=== PATIENT | male | born 1990 | race Caucasian/White ===

== ENCOUNTER 2023-02-26 02:29 | Outpatient (CLI) | payer OTHER, SELFPAY | END 2023-02-26 02:30 | disposition home or self-care (01) | LOC: AMB 04-01 15:23 | PROVIDERS: Visit Provider Family Medicine | DX: R44.0 Auditory hallucinations (principal); F10.129 Alcohol abuse with intoxication, unspecified | CPT/HCPCS: A0425; A0427 ==

== ENCOUNTER 2023-06-15 21:31 | Emergency (ER) | payer OTHER, SELFPAY ==
[2023-06-15] VITALS (11 sets, daily range): BP systolic 118–131; BP diastolic 79–110; PULSE 93–192; RESP 20; TEMP 36.8–37.1; O2SAT 93–99
--- NOTE | 2023-06-15 21:49 | CRLHL7_ITS ---
For Patients: As a result of the Century Cures Act, medical imaging exams and procedure reports are released immediately into your electronic medical record. You may view this report before your referring provider. If you have questions, please contact your health care provider. INDICATION: Chest pain. TECHNIQUE: Chest 2 views. COMPARISON: None. FINDINGS: Cardiovascular and mediastinum: Heart size and vasculature are normal in caliber and appearance. Lungs and pleural spaces: Lungs are clear. No sign of infiltrate or mass. No sign of pleural effusion. No pneumothorax. Bones and soft tissues: No significant findings. IMPRESSION: No acute or significant findings. Dictated by Niels Saenz MD @ 06/15/2023 11:43:32 PM (Electronically Signed)
--- OUTSIDE RECORDS SUMMARY | 2023-06-15 21:56 | XMS_ITS | Encounter Summary ---
Author Name Unknown Organization [facility] Address [address] [place] [id number] Care Team Providers Care Director Of Learning Name Role Phone Provider, No Primary Primary Care Provider Unava ilable Encounter Details Date Type Department Care Team Description 03/23/2023 Travel Social History Tobacco Use Types Packs/Day Years Used Date Smoking Tobacco: Never Assessed Sex and Gender Information Value Date Recorded Sex Assigned at Not on file Gender Identity Not on file Sexual Orientation Not on file documented as of this encounter Plan of Treatment Not on file documented as of this encounter Visit Diagnoses Not on filedocumented in this encounter Care Teams Director Of Learning Relationship Specialty Start Date End Date Provider, [place] [address] PCP - General 03/23/23 documented as of this encounter Additional Source Comments PLEASE NOTE: Replies to this message will not be received.[facility] and [facility]
--- OUTSIDE RECORDS SUMMARY | 2023-06-15 21:56 | XMS_ITS | Clinical Summary ---
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 0 Active dextroamphetamine-amph etamine (ADDERALL XR) 20 mg oral Capsule, Sust. Release 24HR Take 1 Capsule (20 mg) by mouth in the morning and 1 Capsule (20 mg) in the evening. 0 Active thiamine (VIT B1) 100 mg oral Tablet Take 1 Tablet (100 mg) by mouth in the morning. 0 Active traZODone (DESYREL) 100 mg oral Tablet Take 1 Tablet (100 mg) by mouth if needed at bedtime for sleep. 0 Active multivitamin with minerals oral Tablet Take 1 Tablet by mouth in the morning. 0 Active Active Problems Problem Noted Date Diagnosed Date Alcohol withdrawal syndrome without complication 03/24/2023 Encounters Date Type Department Care Team Description 03/23/2023 9:32 PM CDT - 03/26/2023 1:25 PM CDT Hospital Encounter [facility] [address] [place] [id number] Dwayne Ramirez MD Chihos, MD Iona Richards Shaun, MD Hong, Shauna Milner MD Dx: Suicidal ideation (Primary Dx) Discharge Disposition: Discharge Home 03/23/2023 Travel from Last 3 Months Social History Tobacco Use Types Packs/Day Years Used Date Smoking Tobacco: Every Day Cigarettes 0.5 10 Started: 11/05/2009 Passive Smoke Exposure: Past Smokeless Tobacco: Never Tobacco Cessation:Ready to Q uit: Yes; Counseling Given: Not Answered Alcohol Use Standard Drinks/Week Comments Not Currently 0 (1 standard drink = 0.6 oz pur e alcohol) 1 L vodka per day Sex and Gender Information Value Date Recorded Sex Assigned at Not on file Gender Identity Not on file Sexual Orientation Not on file Last Filed Vital Signs Vital Sign Reading Time Taken Comments Blood Pressure 123/110 03/26/2023 10:50 AM CDT Pulse 80 03/26/2023 10:50 AM CDT Temperature 36.4 ??C (97.6 ??F) 03/26/2023 1 0:50 AM CDT Respiratory Rate 20 03/26/2023 10:5 0 AM CDT Oxygen Saturation 97% 03/26/2023 10: 50 AM CDT Inhaled Oxygen Concentration - - Weight 93.4 kg (205 lb 14.4 oz) 03/26/2023 6:07 AM CDT Height 182.9 cm (6') 03/24/2023 1:04 AM CDT Body Mass Index 27.93 03/24/2023 1:04 AM CDT Plan of Treatment Health Maintenance Due Date Last Done Comments PHQ-9 Depression Screening 2000 HIV Screen 2003 COVID-19 Vaccine ( season) 2023 09/26/2020, 08/28/2020 Influenza Vaccine (#1) 2023 , 02/02/2020, 02/28/2019, Additional history exists Lipids Standard 2023 DTaP/Tdap/Td Vaccines (5 - Td or Tdap) 02/23/2027 02/23/2017, 06/10/2016, 10/07/2015, Additional history exists Varicella Zoster Sequential (1 of 2) 2038 Meningococcal Vaccines Aged Out 04/04/2008 No lo nger eligible based on patient's age to complete this topic Hepatitis A Vaccines Aged Out 02/13/2009, 05/01/2008, 04/30/2008, Additional history exists No longer eligible based on patient's age to complete this topic Hepatitis B Vaccines Completed 02/13/2009, 05/01/2008, 04/30/2008, Additional history exists Pneumococcal Vaccine (0-64 Years) Aged Out 09/03/2016, 04/04/2008 No longer eligibl e based on patient's age to complete this topic Hepatitis C Testing Completed 03/24/2023 HIB Vaccines Aged Out No longer eligi ble based on patient's age to complete this topic HPV Vaccines Aged Out No longer eligi ble based on patient's age to complete this topic Procedures Procedure Name Priority Date/Time Associated Diagnosis Comments LAVENDER TUBE Routine 03/26/2023 6:31 AM CDT EXTRA TUBES Routine 03/26/2023 6:31 AM CDT BASIC METABOLIC PANEL Routine 03/26/2023 6:31 AM CDT MAGNESIUM Routine 03/26/2023 6:31 AM CDT COMPREHENSIVE METABOLIC PANEL Routine 03/25/2023 6:12 AM CDT LEUKOCYTE COUNT/HEMOGLOBIN/PLATE LET COUNT Routine 03/25/2023 6:12 AM CDT MAGNESIUM Routine 03/25/2023 6:12 AM CDT CARDIAC RHYTHM STRIP 03/24/2023 8:00 PM CDT CARDIAC RHYTHM STRIP 03/24/2023 7:59 PM CDT PLATELET COUNT Add On 03/24/2023 1:05 PM CDT HEPATITIS A AB, IGM Routine 03/24/2023 1 :05 PM CDT HEPATITIS C AB Routine 03/24/2023 1:05 PM CDT HEPATITIS B CORE AB, IGM Routine 03/24/2023 1:05 PM CDT HEPATITIS B SURFACE AG Routine 1:05 PM CDT BASIC METABOLIC PANEL Routine 03/24/2023 8:04 AM CDT LIVER FUNCTION PANEL Routine 03/24/2023 8:04 AM CDT MAGNESIUM Routine 03/24/2023 8:04 AM CDT HEMOGLOBIN Routine 03/24/2023 8:03 AM CDT US ABD RUQ Routine 03/24/2023 7:43 AM CDT URINE CULTURE STAT 03/24/2023 12:18 AM CDT URINALYSIS, MICROSCOPIC ONLY STAT 03/24/2023 12:18 AM CDT DRUGS OF ABUSE SCREEN, URINE STAT 03/24/2023 12:18 AM CDT URINALYSIS WITH REFLEX TO MICROSCOPIC STAT 03/24/2023 12:18 AM CDT GOLD/SST TUBE STAT 03/23/2023 10:17 PM CDT LAVENDER TUBE STAT 03/23/2023 10:17 PM CDT LIGHT GREEN TUBE STAT 03/23/2023 10:1 7 PM CDT LIGHT BLUE TUBE STAT 03/23/2023 10:17 PM CDT TROPONIN I Add On 03/23/2023 10:17 PM CDT LIPASE Add On 03/23/2023 10:17 PM CDT COMPLETE BLOOD COUNT AND DIFFERENTIAL STAT 03/23/2023 10:17 PM CDT PROTHROMBIN TIME AND INR STAT 03/23/2023 10:17 PM CDT MAGNESIUM STAT 03/23/2023 10:17 PM CDT LIVER FUNCTION PANEL STAT 03/23/2023 10:17 PM CDT ETHANOL STAT 03/23/2023 10:17 PM CDT BASIC METABOLIC PANEL STAT 03/23/2023 10:17 PM CDT COMPLETE BLOOD COUNT AND DIFFERENTIAL STAT 03/23/2023 10:17 PM CDT RAINBOW DRAW STAT 03/23/2023 10:17 PM CDT ECG STAT 03/23/2023 8:42 PM CDT from Last 3 Months Results * LAVENDER TUBE (03/26/2023 6:31 AM CDT) Only the most recent of2 resultswithin the time period is included. Blood VENOUS BLOOD / Unknown 03/26/2023 6:31 AM CDT 03/26/2023 7:23 AM CDT Shauna Deshpande MD LAB CHEMISTRY ORDERA BLES Performing Organization Address [facility] Co de Phone Number [facility] [address] [place] [address], [place] [phone] * MAGNESIUM (03/26/2023 6:31 AM CDT) Only the most recent of4 resultswithin the time period is included. Magnesium 2.3 1.8 - 2.6 mg/dL 03/26/2023 7:42 AM CDT [facility] Blood VENOUS BLOOD / Unknown Venipuncture / Unknown 03/26/2023 6:31 AM CDT 03/26/2023 7:11 AM CDT Robles Mcmillan MD LAB CHEMISTRY OR DERABLES Performing Organization Address [facility] Co de Phone Number [facility] [address] [place] [address], [place] [phone] * (ABNORMAL) BASIC METABOLIC PANEL (03/26/2023 6:31 AM CDT) Only the most recent of3 resultswithin the time period is included. Sodium 134(L) 136 - 146 mmol/L 03/26/2023 7:58 AM CDT [facility] Potassium 3.5 3.5 - 5.1 mmol/L 03/26/2023 7:58 AM T [facility] Chloride 100 98 - 107 mmol/L 03/26/2023 7:58 AM [facility] CO2 25 22 - 29 mmol/L 03/26/2023 7:58 AM T [facility] Anion Gap 12.5 10.0 - 20.0 mmol/L 03/26/2023 7:58 AM T [facility] Creatinine 0.93 0.72 - 1.25 mg/dL 03/26/2023 7:58 AM T [facility] Blood Urea Nitrogen 8.5(L) 10.0 - 20.0 mg/dL 03/26/2023 7:58 AM [facility] BUN/Creatinine Ratio 9.14(L) 11.70 - 22.90 ratio 03/26/2023 7:58 AM [facility] Calcium, Total 8.9 8.6 - 10.5 mg/dL 03/26/2023 7:58 AM T [facility] Glucose 113(H) 70 - 100 mg/dL 03/26/2023 7:58 AM [facility] eGFR >60 >=60 mL/min/1. 73m(2) 03/26/2023 7:58 AM T [facility] Comment:Calculation based on the Chronic Kidney Disease Epidemiology Collaboration (CKD-EPI) equation refit without adjustment for race. eCrCl (Rx) - Adults 147.9 mL/min 03/26/2023 7:58 AM T [facility] Blood VENOUS BLOOD / Unknown Venipuncture / Unknown 03/26/2023 6:31 AM CDT 03/26/2023 7:11 AM CDT Baldemar Monson MD LAB CHEMISTRY ORDERA BLES [facility] [address] [place] [address], [place] [phone] * (ABNORMAL) COMPREHENSIVE METABOLIC PANEL (03/25/2023 6:12 AM CDT) Sodium 134(L) 136 - 146 mmol/L 03/25/2023 6:49 AM CDT [facility] Potassium 3.8 3.5 - 5.1 mmol/L 03/25/2023 6:49 AM CDT [facility] Chloride 102 98 - 107 mmol/L 03/25/2023 6:49 AM CDT [facility] CO2 21(L) 22 - 29 mmol/L 03/25/2023 6:49 AM CDT [facility] Anion Gap 14.8 10.0 - 20.0 mmol/L 03/25/2023 6:49 AM CDT [facility] Creatinine 0.84 0.72 - 1.25 mg/dL 03/25/2023 6:49 AM CDT [facility] Blood Urea Nitrogen 8.1(L) 10.0 - 20.0 mg/dL 03/25/2023 6:49 AM CDT [facility] BUN/Creatinine Ratio 9.64(L) 11.70 - 22.90 ratio 03/25/2023 6:49 AM CDT [facility] Calcium, Total 8.3(L) 8.6 - 10.5 mg/dL 03/25/2023 6:49 AM CDT [facility] Glucose 113(H) 70 - 100 mg/dL 03/25/2023 6:49 AM CDT [facility] eGFR >60 >=60 mL/min/1. 73m(2) 03/25/2023 6:49 AM CDT [facility] Comment:Calculation based on the Chronic Kidney Disease Epidemiology Collaboration (CKD-EPI) equation refit without adjustment for race. Total Protein 6.3 6.0 - 8.0 g/dL 03/25/2023 6:49 AM CDT [facility] Albumin 3.5 3.5 - 5.0 g/dL 03/25/2023 6:49 AM CDT [facility] Globulin 2.8 2.0 - 3.5 g/dL 03/25/2023 6:49 AM T [facility] Albumin/Globulin Ratio 1.3 1.0 - 2.0 03/25/2023 6:49 AM CDT [facility] Aspartate Aminotransferase (AST) 182(H) 5 - 41 U/L 03/25/2023 6:49 AM CDT [facility] Alanine Aminotransferase (ALT) 238(H) 8 - 45 U/L 03/25/2023 6:49 AM T [facility] Alkaline Phosphatase 62 50 - 136 U/L 03/25/2023 6:49 AM T [facility] Bilirubin, Total 1.4(H) 0.2 - 1.2 mg/dL 03/25/2023 6:49 AM CDT [facility] eCrCl (Rx) - Adults 165.4 mL/min 03/25 6:49 AM T [facility] Blood VENOUS BLOOD / Unknown Venipuncture / Unknown 03/25/2023 6:12 AM CDT 03/25/2023 6:19 AM CDT Baldemar Monson MD LAB CHEMISTRY ORDERA [facility] Organization Address City/State/ZIP Co de Phone Number [facility] [address] [place] [address], [place] [phone] * LEUKOCYTE COUNT/HEMOGLOBIN/PLATELET COUNT (03/25/2023 6:12 AM CDT) WBC Count, Corrected 6.8 3.9 - 11.9 10(3)/uL 03/25/2023 8:35 AM CDT [facility] Hemoglobin 15.2 13.1 - 17.1 g/dL 03/25/2023 8:35 AM CDT [facility] Platelets 191 179 - 450 10(3)/uL 03/25/2023 8:35 AM CDT [facility] Blood VENOUS BLOOD / Unknown Venipuncture / Unknown 03/25/2023 6:12 AM CDT 03/25/2023 6:19 AM CDT Baldemar Monson MD LAB HEMATOLOGY ORDER TASHA Performing Organization Address City/[facility]/ZIP Co de Phone Number [facility] [address] [place] [address], [place] [phone] * CARDIAC RHYTHM STRIP (03/24/2023 8:00 PM CDT) Only the most recent of2 resultswithin the time period is included. 03/24/2023 8:00 PM CDT Narrative TERESA - 03/24/2023 8:00 PM CDT [place] 0.17 QRS 0.10 QT 0.38 Baldemar Monson MD ECG Performing Organization Address [facility] Co de Phone Number TERESA * HEPATITIS C AB (03/24/2023 1:05 PM CDT) HCV Ab Nonreactive Nonreactive 03/24/2023 2:09 PM CDT [facility] Comment:Interpretation: Anti bodies to HCV were not detected; does not exclude the possibility of exposure to HCV. Blood VENOUS BLOOD / Unknown Venipuncture / Unknown 03/24/2023 1:05 PM CDT 03/24/2023 1:14 PM CDT Baldemar Monson MD LAB SEROLOGY ORDERAB LES Performing Organization Address City/[facility] Co de Phone Number [facility] [address] [place] [address], [place] [phone] * HEPATITIS A AB, IGM (03/24/2023 1:05 PM CDT) Hepatitis A Ab, IgM Negative Negative 03/25/2023 9:32 AM CDT [facility] Comment: Result does not exclude the possibility of exposure to hepatitis A virus. ??Antibody level during early infection stage may be below the limit of detection of the assay. Test Performed by: [address] [address] Spd Manager: Mason Ho M.D. Ph.D.; CLIA# [id number] Blood VENOUS BLOOD / Unknown Venipuncture / Unknown 03/24/2023 1:05 PM CDT 03/24/2023 1:14 PM CDT Baldemar Monson MD LAB SEROLOGY ORDERAB LES [address] [address], [place] [phone] * HEPATITIS B CORE AB, IGM (03/24/2023 1:05 PM CDT) Hepatitis B Core Ab, IgM Nonreactive Nonreactive, Equivocal 03/24/2023 2:09 PM CDT [facility] Blood VENOUS BLOOD / Unknown Venipuncture / Unknown 03/24/2023 1:05 PM CDT 03/24/2023 1:14 PM CDT Baldemar Monson MD LAB SEROLOGY ORDERAB LES Performing Organization Address City/[facility]/ZIP Co de Phone Number [facility] [address] [place] [address], [place] [phone] * HEPATITIS B SURFACE AG (03/24/2023 1:05 PM CDT) Hepatitis B Surface Ag Nonreactive Nonreactive 03/24/2023 2:09 PM CDT [facility] Blood VENOUS BLOOD / Unknown Venipuncture / Unknown 03/24/2023 1:05 PM CDT 03/24/2023 1:14 PM CDT Baldemar Monson MD LAB SEROLOGY ORDERAB LES [facility] [address] [place] [address], [place] [phone] * (ABNORMAL) PLATELET COUNT (03/24/2023 1:05 PM CDT) [facility] Platelets 122(L) 179 - 450 10(3)/uL 03/24/2023 1:24 PM CDT [facility] Blood VENOUS BLOOD / Unknown Venipuncture / Unknown 03/24/2023 1:05 PM CDT 03/24/2023 1:15 PM CDT Baldemar Monson MD LAB HEMATOLOGY ORDER TASHA [facility] [address] [place] [address], [place] [phone] * (ABNORMAL) LIVER FUNCTION PANEL (03/24/2023 8:04 AM CDT) Only the most recent of2 resultswithin the time period is included. [facility] Albumin 3.5 3.5 - 5.0 g/dL 03/24/2023 8:31 AM CDT [facility] Total Protein 6.1 6.0 - 8.0 g/dL 03/24/2023 8:31 AM CDT [facility] Globulin 2.6 2.0 - 3.5 g/dL 03/24/2023 8:31 AM T [facility] Albumin/Globulin Ratio 1.3 1.0 - 2.0 03/24/2023 8:31 AM CDT [facility] Aspartate Aminotransferase (AST) 324(H) 5 - 41 U/L 03/24/2023 8:31 AM T [facility] Alanine Aminotransferase (ALT) 333(H) 8 - 45 U/L 03/24/2023 8:31 AM T [facility] Alkaline Phosphatase 65 50 - 136 U/L 03/24/2023 8:31 AM T [facility] Bilirubin, Total 1.5(H) 0.2 - 1.2 mg/dL 03/24/2023 8:31 AM CDT [facility] Bilirubin, Indirect 1.2(H) 0.0 - 0.7 mg/dL 03/24/2023 8:31 AM CDT [facility] Bilirubin, Direct 0.3 0.0 - 0.5 mg/dL 03/24/2023 8:31 AM CDT [facility] Blood VENOUS BLOOD / Unknown Venipuncture / Unknown 03/24/2023 8:04 AM CDT 03/24/2023 8:07 AM CDT Robles Mcmillan MD LAB CHEMISTRY OR DERABLES Performing Organization Address City/[facility]/ZIP Co de Phone Number [facility] [address] [place] [address], [place] [phone] * HEMOGLOBIN (03/24/2023 8:03 AM CDT) Hemoglobin 15.7 13.1 - 17.1 g/dL 03/24/2023 8:16 AM CDT [facility] Blood VENOUS BLOOD / Unknown Venipuncture / Unknown 03/24/2023 8:03 AM CDT 03/24/2023 8:07 AM CDT Robles Mcmillan MD LAB HEMATOLOGY O RDERABLES Performing Organization Address City/[facility]/ZIP Co de Phone Number [facility] [address] [place] [address], [place] [phone] * US ABD RUQ (03/24/2023 7:43 AM CDT) Anatomical Region Laterality Modality Abdomen Ultrasound 03/24/2023 7:56 AM CDT Narrative 03/24/2023 7:58 AM CDT EXAM: US ABD RUQ INDICATION: Elevated LFTs. COMPARISON: None available. FINDINGS: The gallbladder is mildly distended with wall measuring at the upper limits of normal; however, there is no pericholecystic fluid and per the fisher clam support sonographic Sanders sign was negative. ??The pancreas is largely obscured by overlying bowel gas. ??The liver parenchyma demonstrates diffuse increased echogenicity as compared to adjacent renal cortex. ??There appears to be mild prominence of the renal pelvis. ??No shadowing calculus. ??The visible common bile ducts within normal limits measuring approximately 4 mm. IMPRESSION: 1. Mild gallbladder distension with the wall measuring at the upper limits of normal. ??No additional findings to suggest acute cholecystitis. ??If there is high clinical suspicion a HIDA scan could be obtained. 2. Hepatic steatosis. ??No focal lesion is seen within the included images. 3. Mild prominence of the right renal pelvis. ??No shadowing calculus. Procedure Note Payam Latham MD - 03/24/2023 EXAM: US ABD RUQ INDICATION: Elevated LFTs. COMPARISON: None available. FINDINGS: The gallbladder is mildly distended with wall measuring at the upperlimits of normal; however, there is no pericholecystic fluid and per thesonographer support sonographic Sanders sign was negative. The pancreas is largelyobscured by overlying bowel gas. The liver parenchyma demonstrates diffuseincreased echogenicity as compared to adjacent renal cortex. There appears to bemild prominence of the renal pelvis. No shadowing calculus. The visiblecommon bile ducts within normal limits measuring approximately 4 mm. IMPRESSION: 1. Mild gallbladder distension with the wall measuring at the upper limitsof normal. No additional findings to suggest acute cholecystitis. If thereis high clinical suspicion a HIDA scan could be obtained. 2. Hepatic steatosis. No focal lesion is seen within the includedimages. 3. Mild prominence of the right renal pelvis. No shadowing calculus. Robles Mcmillan MD RAD ULTRASOUND * (ABNORMAL) DRUGS OF ABUSE SCREEN, URINE (03/24/2023 12:18 AM CDT) Amphetamines, Qualitative, Urine Negative Negative 03/24/2023 12:35 AM CDT [facility] Barbiturates, Qualitative, Urine Negative Negative 03/24/2023 12:35 AM CDT [facility] Benzodiazepines, Urine Negative Negative 03/24/2023 12:35 AM T [facility] Buprenorphine, Urine Negative Negative 03/24/2023 12:35 AM T [facility] Cocaine, Urine Negative Negative 03/24/2023 12:35 AM T [facility] Methadone, Qualitative, Urine Negative Negative 03/24/2023 12:35 AM T [facility] Methamphetamine, Qualitative, Urine Negative Negative 03/24/2023 12:35 AM T [facility] Opiates, Urine Negative Negative 03/24/2023 12:35 AM T [facility] Oxycodone, Urine Qualitative, Urine Negative Negative 03/24/2023 12:35 AM T [facility] Phencyclidine, Urine Negative Negative 03/24/2023 12:35 AM [facility] Propoxyphene, Urine Qualitative, Urine Negative Negative 03/24/2023 12:35 AM T [facility] THC Cannabinoids, Urine Positive(A) Negative 03/24/2023 12:35 AM [facility] Comment:Presumptive Positive - This specimen was tested with a urine drug screen device and has a presumptive positive finding. Screening tests can yield false positive results due to their sensitivity and cross-reactivity with other drug classes. Please order follow-up confirmatory testing if needed. Tricyclic Antidepressants, Qualitative, Urine Negative Negative 03/24/2023 12:35 AM [facility] Urine SPOT URINE SPECIMEN / Unknown Non-blood Collection / Unknown 03/24/2023 12:18 AM CDT 03/24/2023 12:21 AM T [facility] - 03/24/2023 12:35 AM CDT Screening Thresholds for Drugs: ??10 ng/mL ?? Buprenorphine ??25 ng/mL ?? Phencyclidine (PCP) ??50 ng/mL ?? Cannabinoids (THC) 100 ng/mL ?? Opiates 100 ng/mL ?? Oxycodone 150 ng/mL ?? Benzodiazepines 150 ng/mL ?? Cocaine 200 ng/mL ?? Barbiturates 300 ng/mL ?? Propoxyphene 300 ng/mL ?? Tricyclic Antidepressants 500 ng/mL ?? Amphetamine 500 ng/mL ?? Methamphetamine 200 ng/mL ?? Methadone Note: ??This test was performed to aid in medical decision making. ??It is not approved for legal or forensic uses. Dwayne Ramirez MD LAB URINE ORDERABLES Performing Organization Address City/[facility]/ZIP Co de Phone Number [facility] [address] [place] [address], [place] [phone] * (ABNORMAL) URINALYSIS, MICROSCOPIC ONLY (03/24/2023 12:18 AM CDT) RBC, Urine 3-5(A) None Seen, 1-2 /HPF 03/24/2023 12:33 AM CDT [facility] WBC, Urine None Seen None Seen, 1-5 /HPF 03/24/2023 12:33 AM CDT [facility] Bacteria, Urine None Seen None Seen, Few /HPF 03/24/2023 12:33 AM CDT [facility] Squamous Epithelial Cells, Urine None Seen None Seen, 1-5 /HPF 03/24/2023 12:33 AM CDT [facility] Mucus, Urine Occasional (A) None Seen /HPF 03/24/2023 12:33 AM CDT [facility] Urine URINE SPECIMEN OBTAINED BY CLEAN CATCH PROCEDURE / Unknown Non-blood Collection / Unknown 03/24/2023 12:18 AM CDT 03/24/2023 12:21 AM CDT Dwayne Ramirez MD LAB URINE ORDERABLES [facility] [address] [place] [address], [place] [phone] * (ABNORMAL) URINALYSIS WITH REFLEX TO MICROSCOPIC (03/24/2023 12:18 AM CDT) Color, Urine Light Yellow Yellow 03/24/2023 12:28 AM CDT [facility] [facility] Clarity, Urine Clear Clear 03/24/2023 12:28 AM CDT [facility] Specific [place], Urine 1.017 1.005 - 1.035 03/24/2023 12:28 AM CDT [facility] Glucose, Urine Negative Negative 03/24/2023 12:28 AM CDT [facility] Bilirubin, Urine Negative Negative 03/24/2023 12:28 AM CDT [facility] Ketone, Urine Trace(A) Negative 03/24/2023 12:28 AM CDT [facility] Blood, Urine 1+(A) Negative 03/24/2023 12:28 AM CDT [facility] pH, Urine 6.0 5.0 - 8.5 pH 03/24/2023 12:28 AM CDT [facility] Protein, Urine Trace(A) Negative 03/24/2023 12:28 AM CDT [facility] Urobilinogen, Urine <2.0 <2.0 EU/dL 03/24/2023 12:28 AM CDT [facility] Nitrite, Urine Negative Negative 03/24/2023 12:28 AM CDT [facility] Leukocyte Esterase, Urine Negative Negative 03/24/2023 12:28 AM CDT [facility] Urine URINE SPECIMEN OBTAINED BY CLEAN CATCH PROCEDURE / Unknown Non-blood Collection / Unknown 03/24/2023 12:18 AM CDT 03/24/2023 12:21 AM CDT Dwayne Ramirez MD LAB URINE ORDERABLES [facility] [address] [place] [address], [place] [phone] * URINE CULTURE (03/24/2023 12:18 AM CDT) Culture No growth 03/25/2023 6:33 AM CDT [facility] Urine URINE SPECIMEN OBTAINED BY CLEAN CATCH PROCEDURE / Unknown Non-blood Collection / Unknown 03/24/2023 12:18 AM CDT 03/24/2023 12:21 AM CDT Dwayne Ramirez MD LAB MICROBIOLOGY ORD ERABLES [facility] [address] [place] [address], [place] [phone] * (ABNORMAL) COMPLETE BLOOD COUNT AND DIFFERENTIAL (03/23/2023 10:17 PM CDT) WBC Count, Corrected 7.8 3.9 - 11.9 10(3)/uL 03/23/2023 10:32 PM CDT [facility] RBC Count 5.86(H) 4.08 - 5.79 10(6)/uL 03/23/2023 10:32 PM CDT [facility] Hemoglobin 18.2(H) 13.1 - 17.1 g/dL 03/23/2023 10:32 PM CDT [facility] Hematocrit 51.5(H) 38.7 - 51.4 % 03/23/2023 10:32 PM CDT [facility] MCV 87.9 82.9 - 100.6 fL 03/23/2023 10:32 PM CDT [facility] MCH 31.2 27.6 - 33.2 pg 03/23/2023 10:32 PM CDT [facility] MCHC 35.4 32.0 - 36.0 g/dL 03/23/2023 10:32 PM CDT [facility] RDW 13.6 10.0 - 16.2 % 03/23/2023 10:32 PM CDT [facility] Platelets 168(L) 179 - 450 10(3)/uL 03/23/2023 10:32 PM CDT [facility] MPV 7.8 7.4 - 10.4 fL 03/23/2023 10:32 PM CDT [facility] % Neutrophils 54.0 43.0 - 80.0 % 03/23/2023 10:32 PM CDT [facility] % Lymphocytes 40.7 16.0 - 49.0 % 03/23/2023 10:32 PM CDT [facility] % Monocytes 4.4 0.0 - 10.0 % 03/23/2023 10:32 PM CDT [facility] % Eosinophils 0.3 0.0 - 7.0 % 03/23/2023 10:32 PM CDT [facility] % Basophils 0.6 0.0 - 2.0 % 03/23/2023 10:32 PM CDT [facility] Abs Neutrophils 4.2 1.6 - 8.1 10(3)/uL 03/23/2023 10:32 PM CDT [facility] Abs Lymphocytes 3.2 0.9 - 3.5 10(3)/uL 03/23/2023 10:32 PM CDT [facility] Abs Monocytes 0.3 0.0 - 1.1 10(3)/uL 03/23/2023 10:32 PM CDT [facility] Abs Eosinophils 0.0 0.0 - 0.8 10(3)/uL 03/23/2023 10:32 PM CDT [facility] Abs Basophils 0.0 0.0 - 0.2 10(3)/uL 03/23/2023 10:32 PM CDT [facility] Blood VENOUS BLOOD / Unknown Venipuncture / Unknown 03/23/2023 10:17 PM CDT 03/23/2023 10:22 PM CDT Dwayne Ramirez MD LAB HEMATOLOGY ORDER TASHA [facility] [address] [place] [address], [place] [phone] * GOLD/SST TUBE (03/23/2023 10:17 PM CDT) Blood VENOUS BLOOD / Unknown Venipuncture / Unknown 03/23/2023 10:17 PM CDT 03/23/2023 10:22 PM CDT Juan Ramon Gan DO LAB CHEMISTR Y ORDERABLES Performing Organization Address [facility] Co de Phone Number [facility] [address] [place] [address], [place] [phone] * LIGHT GREEN TUBE (03/23/2023 10:17 PM CDT) Blood VENOUS BLOOD / Unknown Venipuncture / Unknown 03/23/2023 10:17 PM CDT 03/23/2023 10:22 PM CDT Juan Ramon Gan DO LAB CHEMISTR Y ORDERABLES Performing Organization Address City/[facility] Co de Phone Number [facility] [address] [place] [address], [place] [phone] * LIGHT BLUE TUBE (03/23/2023 10:17 PM CDT) Blood VENOUS BLOOD / Unknown Venipuncture / Unknown 03/23/2023 10:17 PM CDT 03/23/2023 10:22 PM CDT Juan Ramon Gan DO LAB CHEMISTR Y ORDERABLES Performing Organization Address City/[facility] Co de Phone Number [facility] [address] [place] [address], [place] [phone] * (ABNORMAL) ETHANOL (03/23/2023 10:17 PM CDT) Ethanol 388(H) <=10 mg/dL 03/23/2023 10:45 PM CDT [facility] Comment:This test was perfor med to aid in medical decision making. It is not approved for legal or forensic uses. Ethanol 0.39 % 03/23/2023 10:45 PM CDT [facility] Blood VENOUS BLOOD / Unknown Venipuncture / Unknown 03/23/2023 10:17 PM CDT 03/23/2023 10:22 PM CDT Narrative [facility] - 03/23/2023 10:45 PM CDT Increased levels of Lactate and LDH may cause elevated Ethyl Alcohol results. Dwayne Ramirez MD LAB CHEMISTRY ORDERA BLES Performing Organization Address City/[facility]/ZIP Co de Phone Number [facility] [address] [place] [address], [place] [phone] * LIPASE (03/23/2023 10:17 PM CDT) Lipase 69 8 - 78 U/L 03/24/2023 1:50 AM CDT [facility] Blood VENOUS BLOOD / Unknown Venipuncture / Unknown 03/23/2023 10:17 PM CDT 03/23/2023 10:22 PM CDT Robles Mcmillan MD LAB CHEMISTRY OR DERABLES Performing Organization Address City/[facility]/ZIP Co de Phone Number [facility] [address] [place] [address], [place] [phone] * PROTHROMBIN TIME AND INR (03/23/2023 10:17 PM CDT) Prothrombin Time 12.0 9.4 - 12.5 sec 03/23/2023 10:30 PM CDT [facility] INR 1.0 0.9 - 1.1 INR 03/23/2023 10:30 PM CDT [facility] Comment: Common Recommended Therapeutic Ranges: INR Standard: ??2.0-3.0 INR High Intensity: ??2.5-3.5 Blood VENOUS BLOOD / Unknown Venipuncture / Unknown 03/23/2023 10:17 PM CDT 03/23/2023 10:22 PM CDT Dwayne Ramirez MD LAB HEMATOLOGY ORDER TASHA Performing Organization Address [facility] de Phone Number [facility] [address] [place] [address], * TROPONIN I (03/23/2023 10:17 PM CDT) Troponin I 0.01 <=0.04 ng/mL [employer] ANA[employer]ST [id number] 03/24/2023 5:30 AM CDT [facility] Comment: 99% Reference Value: <0.04 ng/mL Assay Diagnostic Reference Range: <0.3 ng/mL ALL Troponin I values above the 99% reference value are reported as abnormal. Blood VENOUS BLOOD / Unknown Venipuncture / Unknown 03/23/2023 10:17 PM CDT 03/23/2023 10:22 PM CDT Robles Mcmillan MD LAB CHEMISTRY OR DERABLES Performing Organization Address [facility] de Phone Number [facility] [address] [place] [address], * ECG (03/23/2023 8:42 PM CDT) 03/23/2023 8:42 PM CDT Narrative MUSE - 03/23/2023 10:48 PM CDT Test Reason : ETC medical screening Vent. Rate : 120 BPM ? Atrial Rate : 120 BPM ?? P-R Int : 166 ms ?QRS Dur : 096 ms ?QT Int : 328 ms ? P-R-T Axes : 048 015 058 degrees ?? QTc Int : 463 ms Sinus tachycardia Low voltage QRS ST elevation consider anterior injury or acute infarct ACUTE PR / STEMI Abnormal ECG No previous ECGs available Referred By: ??YVONNE ? Electronically Signed By:BETITO HOFFMAN M.D. (EP Juan Ramon Gan DO ECG Performing Organization Address 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 BOB SMITH [id number] PCP - General 03/23/23 Additional Source Comments PLEASE NOTE: Replies to this message will not be received.[facility]
--- OUTSIDE RECORDS SUMMARY | 2023-06-15 21:56 | XMS_ITS | Encounter Summary ---
Author Name Unknown Organization [facility] Address [address] [place] [address] Care Team Providers Care Almond Blancher Hand Name Role Phone Provider, No Primary Primary Care Provider Unava ilable Reason for Visit * Reason Comments Chemical Dependency * Inpatient Admission (Routine) Specialty Diagnoses / Procedures Referred By Johnny henry Referred To Contact Diagnoses Alcohol withdrawal syndrome without complication (HCC) ETOH withdrawl SI Referral ID Status Reason Start Date Expiration Date Visits Re quested Visits Authorized [id number] 1 1 Encounter Details Date Type Department Care Team Description 03/23/2023 9:32 PM CDT - 03/26/2023 1:25 PM CDT Hospital Encounter [facility] [address] [place] [address] Corey Reza MD [address] [facility] [address] [place], [place] [address] Robles Mcmillan MD [address] [place] [address] [phone] (Work) Baldemar Monson MD [address] [place] [address] Shauna Deshpande MD [address] [place] [address] Dx: Suicidal ideation (Primary Dx) Discharge Disposition: Discharge Home Social History Tobacco Use Types Packs/Day Years [...] on file documented as of this encounter Last Filed Vital Signs Vital Sign Reading [...] Mass Index 27.93 03/24/2023 1:04 AM CDT documented in this encounter Functional Status Functional Status Response Date of Assess ment Are you deaf or do you have serious difficulty h earing? No 03/24/2023 Are you blind or do you have serious difficulty seeing, even when wearing glasses? No 03/24/2023 Do you have serious difficul ty walking or climbing stairs? No 03/24/2023 Do you have difficulty dressing or bathing? No 03/24/2023 Do you have difficulty doing errands alone such as visiting a doctor's office or shopping because of a physical, mental, or emotional condition? No 03/24/2023 Cognitive Status Response Date of Assessm ent Do you have trouble concentr ating, remembering, or making decisions because of a physical, mental, or emotional condition? No 03/24/2023 documented as of this encounter Discharge Summaries * Shauna Deshpande MD - 03/26/2023 4:11 PM CDT DISCHARGE SUMMARY [facility] Attending Provider: Shauna Deshapnde MD Primary Care Physician at Discharge: No Primary Provider None Admission Date: 03/23/2023 Discharge Date: 03/26/2023 HOSPITAL SUMMARY Discharge Diagnosis Alcohol withdrawal Alcohol abuse Acute alcohol intoxication Reported suicidal ideation Insomnia Secondary polycythemia Transaminitis High anion gap metabolic acidosis Hypokalemia Hypomagnesemia Hyponatremia Hospital Course 32-year-old male with history of alcohol abuse with prior complicated alcohol withdrawal including seizure presented with alcohol withdrawal and suicidal ideation. Psych team has been consulted, patient was found to be admitted risk for suicide. Patient was also found to have transaminitis, possibly associated with alcohol use. Right upper quadrant ultrasound with shows no evidence. Cholecystic fluid. Withdrawal symptom worse in the evening of 03/24 and transferred to progressive care unit for monitoring. The patient's symptoms improved 03/25. When he was seen and examined by me on 03/26, he was adamant about wanting to be discharged. Risk and benefit discussed, he voices understanding and still would like to be discharged. Per my discussion with him, he was not suicidal as well. Consultants Psychiatry Procedures performed NA Pertinent imaging Right upper quadrant ultrasound 03/24: IMPRESSION: 1. Mild gallbladder distension with the wall measuring at the upper limits of normal. No additional findings to suggest acute cholecystitis. If there is high clinical suspicion a HIDA scan could be obtained. 2. Hepatic steatosis. No focal lesion is seen within the included images. 3. Mild prominence of the right renal pelvis. No shadowing calculus. Test Results Pending at Discharge Unresulted Labs No orders found from 03/12/2023 to 03/27/2023. Unresulted Pathology No orders found from 03/12/2023 to 03/27/2023. Unresulted Imaging No orders found from 03/12/2023 to 03/27/2023. DISCHARGE EXAM Exam on Day of Discharge Last vitals taken: BP: (!) 123/110, Pulse: 80, Temp: 97.6 ??F (36.4 ??C), Resp: 20 Admission Weight: Weight: 95.6 kg (210 lb 12.2 oz) Discharge Weight: Weight: 93.4 kg (205 lb 14.4 oz) CON: NAD Pleasant mood CV: RRR S1 S2 No murmur/rubs/gallops appreciated No edema appreciated RESP: CTAB No wheezing/rhonchi/crackles appreciated GI: Soft ND NT +BS Physical Condition at Discharge Balaji's condition is fair. Patient was seen by me on the day of discharge. DISCHARGE ORDERS AND MEDICATIONS Discharge Medications Current Medication List on Discharge Started PHENobarbitaL 64.8 mg Tablet Take 1 Tablet (64.8 mg) by mouth every 8 hours for 4 doses, 1 Tablet every 12 hours for 4 doses, THEN 1 Tablet at bedtime for 2 days. Start taking on: March 26, 2023 PHENobarbitaL 64.8 mg Tablet Dose: 64.8 mg Take 1 Tablet (64.8 mg) by mouth every 12 hours for 4 doses. Max Daily Amount: 129.6 mg Start taking on: March 28, 2023 PHENobarbitaL 64.8 mg Tablet Dose: 64.8 mg Take 1 Tablet (64.8 mg) by mouth at bedtime for 2 doses. Max Daily Amount: 64.8 mg Start taking on: March 30, 2023 Continued dextroamphetamine-amphetamine 20 mg Cp24 Dose: 20 mg Commonly known as: ADDERALL XR Take 1 Capsule (20 mg) by mouth in the morning and 1 Capsule (20 mg) in the evening. melatonin 3 mg Tablet Dose: 3 mg Take 1 Tablet (3 mg) by mouth at bedtime. multivitamin with minerals Tablet Dose: 1 Tablet Take 1 Tablet by mouth in the morning. thiamine 100 mg Tablet Dose: 100 mg Commonly known as: VIT B1 Take 1 Tablet (100 mg) by mouth in the morning. traZODone 100 mg Tablet Dose: 100 mg Commonly known as: DESYREL Take 1 Tablet (100 mg) by mouth if needed at bedtime for sleep. Stopped escitalopram oxalate 10 mg Tablet Commonly known as: LEXAPRO Discharge medication reconciliation was completed by discharging provider(s). Discharge Procedure Orders Discharge Order Order Specific Question Answer Comments Planned discharge date 03/26/2023 When I should call my provider Order Comments: If you: Feel you are getting worse or feel you have an increase in problems Fever greater than 101 degrees or fever greater than 100 over 24 hours Increased shortness of breath Any signs of infection (increasing redness, swelling, tenderness, warmth change in appearance, or increased drainage) New or increased swelling, redness or pain in your feet and or legs Blood in your urine or stool Coughing or vomiting blood Nausea (upset stomach) and vomiting and/or diarrhea that won't stop Severe pain that is not relieved by medication, rest or ice Weight gain - call your physician if you gain 3 pounds or more over night, or gain 5 pounds in a week Call 911 if you feel you are having a Medical Emergency. OTHER DISCHARGE INSTRUCTIONS: 1. Do no harm to yourself or others. 2. Avoid alcohol and drugs. 3. Take your medications as prescribed. 4. Contact your clinic and/or provider with any concerns or questions. 5. In the event you have overwhelming thoughts to hurt yourself, call the national crisis line/ suicide prevention line 988, call 911 or go to your local Emergency Room. 6. Veterans Crisis Line: 7. Start RRTP at [facility] on 03/30/23 as scheduled. Provider Follow-Up Specialist Order Specific Question Answer Comments When: 03/30/23 Reason: CD treatment With Who? RRTP at [facility] Reason I was hospitalized Order Comments: Alcohol withdrawal Diet I should eat when I am home Order Specific Question Answer Comments Type of diet I should eat Regular Diet Provider Follow-Up PCP Order Comments: PCP: No Primary Provider Order Specific Question Answer Comments When: Patient has complexity with higher risk of readmission in need of primary care follow up within 6 days (i.e. this is a Transitional Care Management [TCM] visit or heart failure patient in need of high prioritization) Activity I should do when I am home Order Comments: Regular exercise is encouraged You may increase daily walking as you are able We appreciate the opportunity to care for Balaji Mckeon. If you have any questions, please do not hesitate to contact us as outlined below. Post-Discharge Contacts If you are a healthcare provider and have questions within the first 24 hours after discharge, please contact [facility] Adult Hospitalist Service at ext. [phone]; or for Laboratory Services: . Kind Regards, Shauna Deshpande MD Copies of this note will be automatically routed to the following providers PCP: Provider, No Primary Total time spent: 40 minutes, mostly on counseling and coordinating care. documented in this encounter Medications at Time of Discharge Medication Sig Dispensed Refills Start Date End Date dextroamphetamine-amphet amine (ADDERALL XR) 20 mg oral Capsule, Sust. Release 24HR Take 1 Capsule (20 mg) by mouth in the morning and 1 Capsule (20 mg) in the evening. 0 melatonin 3 mg oral Tablet Take 1 Tablet (3 mg) by mouth at bedtime. 0 multivitamin with minerals oral Tablet Take 1 Tablet by mouth in the morning. 0 thiamine (VIT B1) 100 mg oral Tablet Take 1 Tablet (100 mg) by mouth in the morning. 0 traZODone (DESYREL) 100 mg oral Tablet Take 1 Tablet (100 mg) by mouth if needed at bedtime for sleep. 0 PHENobarbitaL 64.8 mg oral TabletIndications:Alcoho l withdrawal syndrome without complication (HCC) Take 1 Tablet (64.8 mg) by mouth every 8 hours for 4 doses, THEN 1 Tablet every 12 hours for 4 doses, THEN 1 Tablet at bedtime for 2 days. 10 Tablet 0 03/26/2023 03/31/2023 PHENobarbitaL 64.8 mg oral TabletIndications:Alcoho l withdrawal syndrome without complication (HCC) Take 1 Tablet (64.8 mg) by mouth every 12 hours for 4 doses. Max Daily Amount: 129.6 mg 4 Tablet 0 03/28/2023 04/08/2023 PHENobarbitaL 64.8 mg oral TabletIndications:Alcoho l withdrawal syndrome without complication (HCC) Take 1 Tablet (64.8 mg) by mouth at bedtime for 2 doses. Max Daily Amount: 64.8 mg 2 Tablet 0 03/30/2023 04/08/2023 documented as of this encounter Progress Notes * Amparo Romero, PAC - 03/25/2023 3:59 PM CDT Images from the original note were not included. Psychiatry Consult Progress Note ADMISSION DATE: 03/23/2023 SUMMARY OF HOSPITALIZATION: Balaji is a 32-year-old [place] with underlying alcohol use disorder, history of alcohol withdrawal, PTSD as well as liver disease who presented to [facility] emergency department on 03/23 with his parents for concerns of alcohol withdrawal and suicidal ideation. Last drink was earlier that afternoon. Patient endorsed suicidal ideation but no plan. He was noted to have some red-tinged emesis and blood in his urine. Also lower extremity swelling. Acknowledge cannabis use. Balaji hadbeen planning to [facility] chemical dependency treatment at [facility]. Prior to this admission patient had sobriety for about 6 years until relapsing this summer. Unclear the circumstances surrounding the relapse. Patient was somewhat vague and hesitant to share psychiatric history during psychiatry consult on 03/24. Historically has had hallucinations with alcohol withdrawal, had denied hallucinating yet this admission. 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 Trazodone at 100 mg at bedtime prn was continued. SUBJECTIVE: Patient continues to have symptoms of alcohol withdrawal and higher dose of scheduled phenobarbitalprovided by Hospitalist service the afternoon of 03/24. No concerns per nursing. Patient's father is present for today's visit but steps out for psychiatry's visit. Balaji reports his withdrawal symptoms are doing much better. Denies hallucinations. He does become a bit tearful indiscussing his alcohol use disorder and how bad things had gotten just prior to this admission. 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 For a couple of weeks he is not going to work because of his alcohol use. He was able to speak to his employer today and they have been supportive and he has gotten [employer] paperwork. He is scheduled to start treatment at the [facility] March 30. This has been confirmed with the patient, CD as well as the patient's [facility] er. Should the patient medically discharge prior to 03/30/2023 he plans to go live with his parentsin [place]. He denies access to firearms. I was able to speak to the patient's father privately who also confirmed the above planned and stated all firearms had been locked. Regarding the suicidal statements/ideation at time of admission, Balaji states in part he thinks it was because he was completely overwhelmed with how things were going in his life. At the time he wasfeeling hopeless. He denies active suicidal ideation, plan or intent. He is aware of the national suicide hotline as well as the [facility] hot[facility]risis line. PRN Medications in Past 24 Hours: 130 mg of phenobarbital on 03/24 and additional 65 mg of phenobarbital at 731 this morning Medications of interest during hospitalization: Prn Ativan per alcohol withdrawal protocol Prn melatonin Phenobarbital taper Prn phenobarbital Trazodone 100 mg nightly prn MEDICATIONS: Current Facility-Administered Medications Medication Dose Route Frequency Provider Last Rate Last Admin ??? ethyl alcohoL (NOZIN POPSWAB) 62 % nasal swab 1 Swab 1 Swab each nostril Q12HR Scheduled Robles Mcmillan MD 1 Swab at 03/25/23730 ??? folic acid (FOLVITE) tablet 1 mg 1 mg oral Daily in AM Robles Mcmillan MD 1 mg at 03/25/23730 Or ??? folic acid 1 mg in dextrose 5 % in water (D5W) 50 mL IV piggyback 1 mg IV infusion Daily in AM Robles Mcmillan MD ??? lactated ringers (LR) IV soln IV infusion Continuous Baldemar Monson MD 100 mL/hr at 7 New Bag at 03/24/232326 ??? LORazepam (ATIVAN) 2 mg/mL injection VIAL 1-2 mg 1-2 mg intravenous Q5MIN PRN Robles Mcmillan MD ??? melatonin tablet 3-6 mg 3-6 mg oral Nightly PRN Robles Mcmillan MD ??? multivitamin with folic acid 400 mcg tablet 1 Tablet 1 Tablet oral Daily Robles Mcmillan MD 1 Tablet at 03/25/23730 ??? pantoprazole (PROTONIX) injectable 40 mg 40 mg intravenous Q12H Robles Mcmillan MD 40 mgat 03/24/232322 ??? PHENobarbital 65 mg/mL injection 65 mg 65 mg intravenous Q6H Baldemar Monson MD 65 mg at 03/25/234 Followed by ??? [START ON 03/26/2023] PHENobarbitaL tablet 64.8 mg 64.8 mg oral Q8H Baldemar Monson MD Followed by ??? [START ON 03/28/2023] PHENobarbitaL tablet 64.8 mg 64.8 mg oral Q12H Baldemar Monson MD Followed by ??? [START ON 03/30/2023] PHENobarbitaL tablet 64.8 mg 64.8 mg oral Nightly Baldemar Monson MD ??? PHENobarbital 65 mg/mL injection 65 mg 65 mg intravenous Q3H PRN Baldemar Monson MD 65 mg at 03/25/2331 ??? prochlorperazine edisylate (COMPAZINE) injection 5 mg 5 mg intravenous Q6H PRN Robles Mcmillan MD 5 mg at 03/25/23 0742 ??? thiamine (VIT B1) tablet 100 mg 100 mg oral Daily in AM Robles Mcmillan MD 100 mg at 03/25/2331 Or ??? thiamine 100 mg/mL injection 100 mg 100 mg intramuscular Daily in AM Robles Mcmillan MD Or ??? thiamine 100 mg in dextrose 5 % in water (D5W) 50 mL IV piggyback 100 mg IV infusion Daily in AM Robles Mcmillan MD ??? traZODone (DESYREL) tablet 100 mg 100 mg oral Nightly PRN Margaret Kelley MD VITALS: 03/23/2023 03/24/2023 03/25/2023 BP VITALS BP 139/88 136/81 151/92 121/101 149/88 143/84 136/84 125/77 132/90 131/77 116/79 142/89 155/98 125/110 135/110 161/96 143/94 BP Position Sitting Lying Sitting Lying Lying Lying Lying Lying Sitting Lying Lying Lying Sitting Lying Lying Pulse 136 73 99 75 78 90 88 88 101 101 94 105 129 129 80 81 Weight: Weight: 94.4 kg (208 lb 1.6 oz) BMI: Body mass index is 28.22 kg/m??. Mental Status Exam: Appearance: Patient in hospital attire and appropriately groomed. Not diaphoretic. Speech: Normal volume, articulation, and rate. Eye Contact: appropriately maintained Language: No deficits noted on exam. Gross motor function: No abnormal movements noted. Mood/Affect: Better /appropriately tearful Thought Process: Appears grossly intact. Thought Content: Denies auditory or visual hallucinations, no evidence of delusions, and patient does not appear internally preoccupied. Loosening of Association: None noted. Suicidal Ideation: Denied Homicidal Ideation: Did not express. Orientation: Intact Concentration/Attention: Appear intact. Memory: Appear intact. Fund of Knowledge: Not assessed Insight/Judgement: Intact. Component Latest Ref Rng 03/24/2023 03/25/2023 Sodium 136 - 146 mmol/L 136 134 (L) Potassium 3.5 - 5.1 mmol/L 3.2 (L) 3.8 Chloride 98 - 107 mmol/L 98 102 CO2 22 - 29 mmol/L 21 (L) 21 (L) Anion Gap 10.0 - 20.0 mmol/L 20.2 (H) 14.8 Creatinine 0.72 - 1.25 mg/dL 0.75 0.84 Blood Urea Nitrogen 10.0 - 20.0 mg/dL 15.5 8.1 (L) BUN/Creatinine Ratio 11.70 - 22.90 ratio 20.67 9.64 (L) Calcium, Total 8.6 - 10.5 mg/dL 7.5 (L) 8.3 (L) Glucose 70 - 100 mg/dL 115 (H) 113 (H) eGFR >=60 mL/min/1.73m(2) >60 >60 Total Protein 6.0 - 8.0 g/dL 6.1 6.3 Albumin 3.5 - 5.0 g/dL 3.5 3.5 Globulin 2.0 - 3.5 g/dL 2.6 2.8 Albumin/Globulin Ratio 1.0 - 2.0 1.3 1.3 Aspartate Aminotransferase (AST) 5 - 41 U/L 324 (H) 182 (H) Alanine Aminotransferase (ALT) 8 - 45 U/L 333 (H) 238 (H) Alkaline Phosphatase 50 - 136 U/L 65 62 Bilirubin, Total 0.2 - 1.2 mg/dL 1.5 (H) 1.4 (H) eCrCl (Rx) - Adults mL/min 187.7 165.4 Bilirubin, Indirect 0.0 - 0.7 mg/dL 1.2 (H) Bilirubin, Direct 0.0 - 0.5 mg/dL 0.3 WBC Count, Corrected 3.9 - 11.9 10(3)/uL 6.8 Hemoglobin 13.1 - 17.1 g/dL 15.2 Platelets 179 - 450 10(3)/uL 191 Hepatitis B Surface Ag Nonreactive Nonreactive Hepatitis B Core Ab, IgM Nonreactive, Equivocal Nonreactive HCV Ab Nonreactive Nonreactive Legend: (L) Low (H) High IMPRESSION: Balaji is a 32-year-old [place] with the above noted medical history who presented to [facility] on 03/23 with alcohol withdrawal symptoms. He endorsed suicidal ideation at time of admission but no plan or intent. Psychiatry consulted on 03/24. Risk assessment that overall imminent risk was low although long-term risk is considered moderate. Defer to Dr. Kelley's consult from 03/24 for further details. He has continued to demonstrate signs and symptoms consistent with alcohol withdrawal and has been treated with high-dose phenobarbital taper and received prn phenobarbital. He continues to deny suicidal intent. He plans to discharge to the RRTP program at [facility] for chemical dependency residential treatment following this admission. Urine psychiatry's visit on 03/25/2023,Balaji denied active suicidal ideation, plan or intent. Able to discuss safety plan. Should patient discharge prior to his start date of 03/30/2023 he plans to stay day with his parents this has been c onfirmed. All firearms have been secured per patient and his father. Risk assessment: Imminent risk of suicide is low with long-term risk moderate Static risk factors include white male status Dynamic risk factors substance use Protective factors include willingness to seek help, future oriented, no previous suicide attempts,social support, pet at home, firearms secured. Crisis numbers provided and discharge paperwork. DIAGNOSES: Alcohol use disorder, severe - Chronic condition with complexity PTSD, by reports - Chronic condition with complexity Cannabis use vs use disorder - Chronic condition with complexity PLAN: Medical issues as managed by the primary and consulting services. Medications Continue with alcohol withdrawal protocol which includes phenobarbital Monitoring: Monitor QTc. Hold antipsychotic if QTc is greater than 500 msec. Additionally, recommend primary team monitor and attempt to keep magnesium greater than 2.0 and potassium greater than 3.8 to reduce the risk of torsades de pointes. Safety: Not thought to be an imminent risk for suicide. Does not require suicide precautions or one-to-one at this juncture Behavioral Strategies: Monitor for signs of alcohol withdrawal Disposition: per primary team External notes reviewed today, 03/25/2023, include Dr. Monson, social work, nursing staff, behavioral dysregulation. Plan of care, including psychiatric recommendations discussed today, 03/25/2023, with Angelina Hopkins, behavioral dysregulation. I also spoke with the patient's father .Medical Decision Making: Patient's care is currently deemed to be HIGH RISK due to: Multiple treatment options, Side effects from treatment, Risks of morbidity without treatment, severe exacerbationand complex care coordination across multiple disciplines and/or social systems. Thank you for allowing us to participate in the care of this patient. Psychiatry will sign off at this juncture. Should it be felt by the team that our level of involvement would be beneficial in thefuture, please re-consult and contact the consultation/liaison pager. JU Kevin 03/25/2023 * Alyx Salazar - 03/25/2023 2:00 PM CDT Nicotine Dependence IP Consult: Data: Patient admitted for Alcohol withdrawal syndrome without complication (HCC) [F10.930] which is caused or complicated by tobacco use. Patient's FHAAS indicated: Are you worried about nicotine cravings while in the hospital?: No Would you like assistance to quit tobacco or nicotine?: Yes Social History Tobacco Use Smoking Status Every Day ??? Packs/day: 0.50 ??? Years: 10.00 ??? Additional pack years: 0.00 ??? Total pack years: 5.00 ??? Types: Cigarettes ??? Start date: 11/05/2009 ??? Passive exposure: Past Smokeless Tobacco Never E-Cigarettes ??? E-Cigarette Use Never User Action: Withdrawal: Patient felt he is experiencing nicotine withdrawal while in the hospital. Nicotine Dependence Protocol is active. He does not have a medication to assist with nicotine withdrawal while hospitalized. Staff messaged RN to advise that patient would like nicorette gum to help with cravingswhile in hospital. Cessation: Patient states he is thinking about quitting. Patient has quit in the past. Medication: Patient has used medications in the past to assist with tobacco cessation. Reviewed FDAapproved tobacco cessation medications with patient and encouraged patient to talk with their provider about options. Behavior: Reviewed patient's triggers for tobacco use. Encouraged changing routines and finding coping techniques. Patient was receptive to behavior changes to assist with tobacco cessation. Support: Patient felt he does not have support to quit tobacco. Quit Partner information was given. Response: He was satisfied with how his potential for nicotine withdrawal was addressed. He would like to try nicotine gum to better assist him. He plans on quitting tobacco with the assistance of patches and gum. You Can Quit handout was provided. Tobacco Derrick Boat Lever Operator 3-10 minutes spent with patient. Ext. [phone] * Baldemar Monson MD - 03/25/2023 1:41 PM CDT HOSPITALIST PROGRESS NOTE Summary of Hospitalization Admit Date: 03/23/2023 32 M, h/o alcohol abuse with prior complicated alcohol withdrawal including seizures, PTSD, report of underlying liver disease, who presented with alcohol withdrawal and suicidal ideation. Endorsed 2episodes of emesis with red tinge per smoking marijuana in addition to consuming alcohol. Did not have a plan with his suicidal ideation. Ethanol positive at 388. CBC with possible hemoconcentration with hemoglobin of 18.2, no prior CBCs for review. BMP with high anion gap metabolic acidosis with bicarb of 17 and anion gap 25. LFTs with transaminitis pattern with AST 526, ALT 476. Lipase negative. INR normal. Troponin normal. Admitted started on alcohol withdrawal protocol with phenobarbital taper. Psychiatry consulted given suicidal ideations but this was discontinued as patient denied suicidal thoughts/plans/intent once reevaluated when sober. RUQ ultrasound with equivocal gallbladder wall thickening upper limit of normal but no evidence of pericholecystic fluid and negative sonographicMurphy's ultrasound and screening for cholecystitis, otherwise normal CBD diameter 4 mm. Withdrawalsymptoms worsened evening 03/24/2023 and transferred to [facility] for higher monitoring but with escalation of phenobarbital taper, symptoms improved enough to be able to transfer out of [facility] 03/25/2023 SUBJECTIVE Doing okay. Tolerating diet, no nausea. Ambulatory. He did have escalation of withdrawal symptoms last night requiring transfer to [facility] but this has improved with escalation to higher intensity phenobarbital. Given he is 2 days out from his last drink, discussed with patient that it is not unusual to see patients peak around day 2-3 and he would be within this timeframe, but given symptomsare controlled, can transition him to the floor. Can stop IV fluids and discontinue cardiac monitorto allow him to move freely and ambulate. Discussed with him that he would benefit from another dayof observation given severity of symptoms yesterday requiring escalation of phenobarbital taper. OBJECTIVE Vital sign ranges last 24 hours: Temp: [97 ??F (36.1 ??C)-98.5 ??F (36.9 ??C)] 97.8 ??F (36.6 ??C) Pulse: [73-99] 87 Resp: [13-23] 20 BP: (121-161)/(81-101) 131/83 Most recent vitals: BP: 131/83, Pulse: 87, Temp: 97.8 ??F (36.6 ??C), Resp: 20, Height: 182.9 cm (6') Weight: 94.4 kg (208 lb 1.6 oz), BMI: 28.58, SpO2: 94 %, O2 source: Room air Intake/Output Summary (Last 24 hours) at 03/25/2023 1341 Last data filed at 03/25/2023 1306 Gross per 24 hour Intake 3073.6 ml Output -- Net 3073.6 ml Admit Weight [03/24/23 010] Weight 95.6 kg (210 lb 12.2 oz) Patient's weight for the past 120 hrs: Weight 03/25/23 0417 94.4 kg (208 lb 1.6 oz) 03/24/23 0104 95.6 kg (210 lb 12.2 oz) VITALS: Reviewed as above. Physical Exam GENERAL APPEARANCE: Awake, nontoxic appearing, no acute distress HEENT: No conjunctival injection, anicteric. CHEST: Clear to auscultation bilaterally. Symmetric air entry HEART: Normal S1, S2. Normal rate, regular rhythm ABDOMEN: Soft, nontender NEUROLOGICAL: Alert, oriented, normal speech, moves all 4 extremities spontaneously SKIN & EXTREMITIES: No pedal edema, no clubbing or cyanosis. No jaundice, no petechiae. DATA: Labs and imaging were reviewed. Medications were reviewed and updated. Recent Labs Recent Results 03/23/23221603/24/23 0804 03/25/23 0612 NA 136 136 134 L K 3.7 3.2 L 3.8 CL 98 98 102 BUN 21.3 H 15.5 8.1 L CREA 0.98 0.75 0.84 CA 8.2 L 7.5 L 8.3 L Recent Labs Recent Results 03/23/23221603/24/23 0803 03/24/23 1305 03/25/23611 WBC 7.8 -- -- 6.8 HGB 18.2 H 15.7 -- 15.2 PLT 168 L -- 122 L 191 INR 1.0 -- -- -- MCV 87.9 -- -- -- Recent Labs Recent Results 03/23/23221603/24/2380303/25/23611 GLU 100 115 H 113 H Recent Labs Recent Results 03/23/23221603/24/2380303/25/23611 AST 526 H 324 H 182 H ALT 476 H 333 H 238 H TBILI 1.0 1.5 H 1.4 H DBIL 0.3 0.3 -- ALK 74 65 62 No results for input(s): CUL in the last 168 hours. Recent Labs Recent Results 03/23/232216 TROPI 0.01 No results for input(s): BNP in the last 168 hours. No results for input(s): CHOL, HDL, LDL, TRIG in the last 168 hours. Recent Labs Recent Results 03/23/232216 PT 12.0 INR 1.0 Recent Labs Recent Results 03/23/23221603/24/2380303/25/23611 MAG 2.0 1.7 L 2.2 ASSESSEMENT & PLAN Principle Problem: Alcohol withdrawal 1. Alcohol withdrawal. Reports he has had severe withdrawal symptoms in past. Symptoms did escalateyesterday but have improved with higher doses of phenobarbital taper, will continue this for at least 1 more day. Stable otherwise to transfer to floor from [facility] 2. Alcohol abuse. Patient given information for [facility] program at [facility] by HUSSEIN, and psychiatry also feelsthat transition to residential treatment is prudent. He is to call [facility] today to inquire more information about this. It appears they may potentially prioritize prioritize patient to get into the program since he is currently hospitalized. Will need to follow-up on this tomorrow in case patient is potentially able to discharge. 3. Acute alcohol intoxication. Clinically sober at this time 4. Suicidal ideations reported. This was in the context of patient being acutely intoxicated. This was discussed by myself and with psychiatry and he has been removed off suicide precautions and one-to-one as he denies any current suicidal thoughts/ideation/intentions/plan. He will benefit from outpatient psychiatry 5. Insomnia. Continue trazodone prn. 6. Secondary polycythemia. Suspect related to hypovolemia. Resolved. 7. Report of PTSD and ADD. 8. Elevated LFTs. Predominantly transaminitis. Could be related to alcohol abuse. Right upper quadrant ultrasound with equivocal gallbladder wall thickening at upper limit of normal but otherwise no evidence for cholecystitis on ultrasound or clinically on exam. Normal CBD diameter as well on ultrasound. Viral hepatitis panel negative/pending. Downtrending. 9. High anion gap metabolic acidosis. Suspect due to volume depletion and alcohol intoxication leading to lactic acidosis/alcoholic ketoacidosis. Resolved, stop IV fluids. 10. Hypokalemia. Repleted. 11. Hypomagnesemia. Repleted. 12. Hyponatremia. Mild. 13. Report of minimal red-colored emesis on admission. Could be related to reflux, alcoholic esophagitis/gastritis, Dania-Elizalde tear. This is not evident in the hospital setting. Will continue PPI,potentially can discharge on daily PPI. 14. Hepatic steatosis with report of underlying liver disease. This can be further evaluated/workedup as outpatient but would also recommend strict alcohol cessation. Otherwise screening baseline right upper quadrant ultrasound did not show cirrhotic appearance of liver but did show hepatic steatosis which is not unexpected in setting of alcohol abuse. DVT prophylaxis: He is ambulatory and does not require SCDs or heparinoid products at this time CODE STATUS: Full Dispo: Transfer to floor. 1 to 2 days for medical stability standpoint. Psychiatry feels that it would be prudent for patient to discharge directly to residential treatment program such as R[facility] at [facility]. Patient is to call [facility] today to find out more on this but potentially he might be a priority given he is currently hospitalized. Baldemar Monson MD - [facility] * Dorothy Banerjee SW - 03/25/2023 9:01 AM CDT Social Work Progress Assessment Transitional Barriers: Not medically ready for discharge Transfer from [facility] last evening Interventions Pt interested in CD tx at the [facility] upon d/c. HUSSEIN spoke with Mili in the RRTP program at the [facility], they do not have any information on pt so she provided the number for pt to call and speak with intake to get enrolled. Per Mili pt may have priority to get into the program since he's currently hospitalized. Met with pt and reviewed this information, provided him with the phone number and he indicated that he would call this am. Discharge Plan Location: Undetermined Services: Undetermined Received a call from Loretta at the [facility] asking if we knew when pt would be ready for d/c. Loretta shared that pt has expressed to them that he plans to return home for at least a day before he would want to enter into the program. Loretta will keep hussein in the loop on when they might have a bed for pt. Received an update from Loretta at the end of the day and they have been in contact with pt and informed him that they would have a bed available on either Wednesday or Wednesday in the RRTP program, pt prefers to admit on Wednesday. * Baldemar Monson MD - 03/24/2023 12:44 PM CDT HOSPITALIST PROGRESS NOTE Summary of Hospitalization Admit Date: 03/23/2023 32 M, h/o alcohol abuse with prior complicated alcohol withdrawal including seizures, PTSD, report of underlying liver disease, who presented with alcohol withdrawal and suicidal ideation. Endorsed 2episodes of emesis with red tinge per smoking marijuana in addition to consuming alcohol. Did not have a plan with his suicidal ideation. Ethanol positive at 388. CBC with possible hemoconcentration with hemoglobin of 18.2, no prior CBCs for review. BMP with high anion gap metabolic acidosis with bicarb of 17 and anion gap 25. LFTs with transaminitis pattern with AST 526, ALT 476. Lipase negative. INR normal. Troponin normal. Admitted started on alcohol withdrawal protocol with phenobarbital taper. Psychiatry consulted given suicidal ideations but this was discontinued as patient denied suicidal thoughts/plans/intent once reevaluated when sober. RUQ ultrasound with equivocal gallbladder wall thickening upper limit of normal but no evidence of pericholecystic fluid and negative sonographicMurphy's ultrasound and screening for cholecystitis, otherwise normal CBD diameter 4 mm. SUBJECTIVE Seen today. He denies suicidal thoughts/ideations. He appears clinically sober. Having some nausea but tolerated diet. He still endorses anxiety and mild tremors. Heart rate is in low 100s. Discussedwith him that he does appear improved from vitals standpoint and from current withdrawal standpointon phenobarbital but will monitor for at least another day. OBJECTIVE Vital sign ranges last 24 hours: Temp: [97.6 ??F (36.4 ??C)-98.9 ??F (37.2 ??C)] 97.6 ??F (36.4 ??C) Pulse: [88-136] 88 Resp: [16-22] 20 BP: (116-155)/(77-110) 136/84 Most recent vitals: BP: 136/84, Pulse: 88, Temp: 97.6 ??F (36.4 ??C), Resp: 20, Height: 182.9 cm (6') Weight: 95.6 kg (210 lb 12.2 oz), BMI: 28.58, SpO2: 95 %, O2 source: Room air Intake/Output Summary (Last 24 hours) at 03/24/2023 1244 Last data filed at 03/24/2023 1211 Gross per 24 hour Intake 2606 ml Output -- Net 2606 ml Admit Weight [03/24/23 010] Weight 95.6 kg (210 lb 12.2 oz) Patient's weight for the past 120 hrs: Weight 03/24/23 0104 95.6 kg (210 lb 12.2 oz) VITALS: Reviewed as above. Physical Exam GENERAL APPEARANCE: Awake, nontoxic appearing, no acute distress HEENT: No conjunctival injection, anicteric. CHEST: Clear to auscultation bilaterally. Symmetric air entry HEART: Normal S1, S2. Normal rate, regular rhythm ABDOMEN: Soft. Tolerates palpation without rebound or guarding. Sanders's negative. NEUROLOGICAL: Alert, oriented, normal speech, moves all 4 extremities spontaneously SKIN & EXTREMITIES: No pedal edema, no clubbing or cyanosis. No jaundice, no petechiae. DATA: Labs and imaging were reviewed. Medications were reviewed and updated. Recent Labs Recent Results 03/23/23 2217 03/24/23 0804 NA 136 136 K 3.7 3.2 L CL 98 98 BUN 21.3 H 15.5 CREA 0.98 0.75 CA 8.2 L 7.5 L Recent Labs Recent Results 03/23/23221603/24/23 0803 WBC 7.8 -- HGB 18.2 H 15.7 PLT 168 L -- INR 1.0 -- MCV 87.9 -- Recent Labs Recent Results 03/23/23221603/24/23 0804 GLU 100 115 H Recent Labs Recent Results 03/23/23221603/24/23 0804 AST 526 H 324 H ALT 476 H 333 H TBILI 1.0 1.5 H DBIL 0.3 0.3 ALK 74 65 No results for input(s): CUL in the last 168 hours. Recent Labs Recent Results 03/23/232216 TROPI 0.01 No results for input(s): BNP in the last 168 hours. No results for input(s): CHOL, HDL, LDL, TRIG in the last 168 hours. Recent Labs Recent Results 03/23/232216 PT 12.0 INR 1.0 Recent Labs Recent Results 03/23/23221603/24/23 0804 MAG 2.0 1.7 L ASSESSEMENT & PLAN Principle Problem: Alcohol withdrawal 1. Alcohol withdrawal. Reports he has had severe withdrawal symptoms in past. Currently appears stable on phenobarbital taper, will continue. 2. Alcohol abuse. 3. Acute alcohol intoxication. Clinically sober at this time 4. Suicidal ideations reported. This was in the context of patient being acutely intoxicated. This was discussed by myself and with psychiatry and he has been removed off suicide precautions and one-to-one as he denies any current suicidal thoughts/ideation/intentions/plan. 5. Insomnia. Continue trazodone prn. 6. Secondary polycythemia. Suspect related to hypovolemia. Resolved. 7. Report of PTSD and ADD. 8. Elevated LFTs. Predominantly transaminitis. Could be related to alcohol abuse. Right upper quadrant ultrasound with equivocal gallbladder wall thickening at upper limit of normal but otherwise no evidence for cholecystitis on ultrasound or clinically on exam. Normal CBD diameter as well on ultrasound. As precaution will check hepatitis A/B/C panel. 9. High anion gap metabolic acidosis. Suspect due to volume depletion and alcohol intoxication leading to lactic acidosis/alcoholic ketoacidosis. Improved, will switch half isotonic bicarb to LR. 10. Hypokalemia. Replete per protocol. 11. Hypomagnesemia. Replete per protocol. 12. Report of minimal red-colored emesis on admission. Could be related to reflux, alcoholic esophagitis/gastritis, Dania-Elizalde tear. Will monitor at this time for recurrence but otherwise continuePPI and symptomatic cares such as antiemetics. 13. Report of liver disease. This can be further evaluated/worked up as outpatient but would also recommend strict alcohol cessation. Otherwise screening baseline right upper quadrant ultrasound did not show cirrhotic appearance of liver but did show hepatic steatosis which is not unexpected in setting of alcohol abuse. DVT prophylaxis: SCDs, encourage ambulation CODE STATUS: Full Dispo: 1 to 3 days, pending improvement in withdrawal. Psychiatry recommending transition to RRTP program at [facility] which patient is in favor of per discussion with psychiatry, consulted CD/SW/CM [facility] Monson [facility] this encounter H&P Notes * Robles Mcmillan MD - 03/24/2023 4:00 AM CDT HOSPITALIST Name: Balaji Mckeon ADMISSION HISTORY & PHYSICAL Date: 03/24/2023 PCP: No Primary Provider CHIEF COMPLAINT: Anxiousness, suicidal ideation and alcohol detox HPI: Balaji Mckeon is a 32-year-old gentleman, who receives health care through the [facility]. Patient with history of PTSD, ADD, alcohol dependence with history of alcohol withdrawal seizures in 2014. Patient reports that he had been sober for 6 years until this past spring. Patient reports that he was hospitalized at the [facility] in [place] for alcoholic withdrawal approximately 1 month ago. He reports that since discharge he initially did not drink any alcohol but over the past week he has been drinking alcohol approximately a half a liter of vodka daily. Patient reports that he wanted to get into a program to the [facility] and wanted to detox before. Patient reports having suicidal thoughts yesterday, denies any plan denies any attempt at suicide yesterday. Patient reports vomiting twice yesterdaywith a minimal amount of red color to the emesis. Patient reports she has not had any further episodes of vomiting since coming to the [facility]. Patient did not exhibit any coffee-ground emesis, melena and hematochezia. Patient reports feeling anxious but denies any hallucinations. Patient denies chest pain, abdominal pain, fevers, chills, lightheadedness, dizziness, rashes, jaundice, dysuria, recent medication changes and palpitations. PMH & PSH: PMH: Alcohol withdrawal seizure 2015 ADD PTSD Alcohol dependence PSH: None per pt. ALLERGIES: No Known Allergies MEDICATIONS: Adderall Melatonin Trazodone SH: Pt reports recently drinking 0.5 L Vodka daily. Pt reports using marijuana once per week, otherwise denies any other illicit drug use.. Pt states he stopped smoking in 2019. FH: Father with diabetes mellitus II and CVA. Mother with ADD. REVIEW OF SYSTEMS: Please see HPI, the rest of a complete review of systems was obtained and otherwise completely negative. PHYSICAL EXAM: VITALS: BP: (!) 155/98 Pulse: 105 Temp: 98.2 ??F (36.8 ??C) Resp: 22 SpO2: 94 % Height: 182.9 cm (6') Weight: 95.6 kg (210 lb 12.2 oz) BMI: 28.58 GENERAL: vital signs reviewed, in no acute distress HEENT:: normocephalic, atraumatic. There is no scleral icterus. There is no conjunctival injection.Mucous membranes mildly dry. Oropharynx clear NECK: no lymphadenopathy or masses and no nuchal rigidity There is no cervical LAD HEART: Borderline tachycardia, regular rhyhtm. LUNGS: normal respiratory effort, no respiratory distress, breath sounds are normal and no wheezes,rales, rhonchi or rubs ABDOMEN: no tenderness, masses or hepatosplenomegaly, bowel sounds normal, soft, Sanders sign is negative and no CVA tenderness to palpation b/l. EXTREMITIES: There is no edema in both leg(s). No cyanosis or clubbing. No hand tremor. SKIN: warm and dry, color normal NEURO: grossly nonfocal, moves all extremities, awake and alert. PSYCH: Affect mildly anxious LABS: Recent Results (from the past 24 hour(s)) BASIC METABOLIC PANEL Collection Time: 03/23/23 10:17 PM Result Value Ref Range Sodium 136 136 - 146 mmol/L Potassium 3.7 3.5 - 5.1 mmol/L Chloride 98 98 - 107 mmol/L CO2 17 (L) 22 - 29 mmol/L Anion Gap 24.7 (H) 10.0 - 20.0 mmol/L Creatinine 0.98 0.72 - 1.25 mg/dL Blood Urea Nitrogen 21.3 (H) 10.0 - 20.0 mg/dL BUN/Creatinine Ratio 21.73 11.70 - 22.90 ratio Calcium, Total 8.2 (L) 8.6 - 10.5 mg/dL Glucose 100 70 - 100 mg/dL eGFR >60 >=60 mL/min/1.73m(2) ETHANOL Collection Time: 03/23/23 10:17 PM Result Value Ref Range Ethanol 388 (H) <=10 mg/dL Ethanol 0.39 % LIVER FUNCTION PANEL Collection Time: 03/23/23 10:17 PM Result Value Ref Range Albumin 4.1 3.5 - 5.0 g/dL Total Protein 7.5 6.0 - 8.0 g/dL Globulin 3.4 2.0 - 3.5 g/dL Albumin/Globulin Ratio 1.2 1.0 - 2.0 Aspartate Aminotransferase (AST) 526 (H) 5 - 41 U/L Alanine Aminotransferase (ALT) 476 (H) 8 - 45 U/L Alkaline Phosphatase 74 50 - 136 U/L Bilirubin, Total 1.0 0.2 - 1.2 mg/dL Bilirubin, Indirect 0.7 0.0 - 0.7 mg/dL Bilirubin, Direct 0.3 0.0 - 0.5 mg/dL MAGNESIUM Collection Time: 03/23/23 10:17 PM Result Value Ref Range Magnesium 2.0 1.8 - 2.6 mg/dL PROTHROMBIN TIME AND INR Collection Time: 03/23/23 10:17 PM Result Value Ref Range Prothrombin Time 12.0 9.4 - 12.5 sec INR 1.0 0.9 - 1.1 INR COMPLETE BLOOD COUNT AND DIFFERENTIAL Collection Time: 03/23/23 10:17 PM Result Value Ref Range WBC Count, Corrected 7.8 3.9 - 11.9 10(3)/uL RBC Count 5.86 (H) 4.08 - 5.79 10(6)/uL Hemoglobin 18.2 (H) 13.1 - 17.1 g/dL Hematocrit 51.5 (H) 38.7 - 51.4 % MCV 87.9 82.9 - 100.6 fL MCH 31.2 27.6 - 33.2 pg MCHC 35.4 32.0 - 36.0 g/dL RDW 13.6 10.0 - 16.2 % Platelets 168 (L) 179 - 450 10(3)/uL MPV 7.8 7.4 - 10.4 fL % Neutrophils 54.0 43.0 - 80.0 % % Lymphocytes 40.7 16.0 - 49.0 % % Monocytes 4.4 0.0 - 10.0 % % Eosinophils 0.3 0.0 - 7.0 % % Basophils 0.6 0.0 - 2.0 % Abs Neutrophils 4.2 1.6 - 8.1 10(3)/uL Abs Lymphocytes 3.2 0.9 - 3.5 10(3)/uL Abs Monocytes 0.3 0.0 - 1.1 10(3)/uL Abs Eosinophils 0.0 0.0 - 0.8 10(3)/uL Abs Basophils 0.0 0.0 - 0.2 10(3)/uL URINALYSIS WITH REFLEX TO MICROSCOPIC Collection Time: 03/24/23 12:18 AM Result Value Ref Range Color, Urine Light Yellow Yellow Clarity, Urine Clear Clear Specific [place], Urine 1.017 1.005 - 1.035 Glucose, Urine Negative Negative Bilirubin, Urine Negative Negative Ketone, Urine Trace (A) Negative Blood, Urine 1+ (A) Negative pH, Urine 6.0 5.0 - 8.5 pH Protein, Urine Trace (A) Negative Urobilinogen, Urine <2.0 <2.0 EU/dL Nitrite, Urine Negative Negative Leukocyte Esterase, Urine Negative Negative DRUGS OF ABUSE SCREEN, URINE Collection Time: 03/24/23 12:18 AM Result Value Ref Range Amphetamines, Qualitative, Urine Negative Negative Barbiturates, Qualitative, Urine Negative Negative Benzodiazepines, Urine Negative Negative Buprenorphine, Urine Negative Negative Cocaine, Urine Negative Negative Methadone, Qualitative, Urine Negative Negative Methamphetamine, Qualitative, Urine Negative Negative Opiates, Urine Negative Negative Oxycodone, Urine Qualitative, Urine Negative Negative Phencyclidine, Urine Negative Negative Propoxyphene, Urine Qualitative, Urine Negative Negative THC Cannabinoids, Urine Positive (A) Negative Tricyclic Antidepressants, Qualitative, Urine Negative Negative URINALYSIS, MICROSCOPIC ONLY Collection Time: 03/24/23 12:18 AM Result Value Ref Range RBC, Urine 3-5 (A) None Seen, 1-2 /HPF WBC, Urine None Seen None Seen, 1-5 /HPF Bacteria, Urine None Seen None Seen, Few /HPF Squamous Epithelial Cells, Urine None Seen None Seen, 1-5 /HPF Mucus, Urine Occasional (A) None Seen /HPF STUDIES: I did review EKG completed on 03/23/2023 at 2042, shows sinus tachycardia, ventricular rate 120/minute, QTc [address] elevations. ASSESSMENT & PLAN: 1. Alcohol withdrawal, patient reports history of alcohol withdrawal seizures in 2014. 2. Alcohol intoxication with underlying alcohol dependence. 3. Suicide thoughts, patient denies any current suicide attempt. 4. Elevated hepatic transaminases. 5. Metabolic acidosis. 6. Reportedly 2 episodes of minimal amount of red-colored emesis on 03/23/2023. 7. Polycythemia, suspect likely secondary to hypovolemia. 8. Reported history of PTSD and ADD. 9. DVT prophylax. 10. CODE STATUS: Full code. Plan: Patient being admitted under suicide precautions with 1:[address] consult for adult psychiatry given patient's suicide ideation. Patient placed on alcohol drawl protocol, seizure precautions, phenobarbital taper and as needed IV lorazepam for seizures. Pharmacy to reconcile outpatient medications. IV fluids with sodium bicarbonate ordered due to metabolic acidosis. Patient's hepatic transaminases are not in a typical alcoholic liver disease, will place therefore an order for right upper quadrant abdominal ultrasound. Patient denies abdominal pain and on exam. Placed patient on IV Protonix every 12 hours dose, check hemoglobin in a.m. Patient reporting 2 episodes of red-colored emesis. Will place patient on IV Protonix every 12 hours dosing and will check a hemoglobin in a.m. Hemoglobin is elevated, suspect secondary to hypovolemia. Will check Chem-8, magnesium and LFTs in the a.m. Pharmacy to reconcile patient medication list. Patient full code. ~~~~~~~~~~~~~~~~ Robles Mcmillan MD ~~~~~~~~~~~~~~~~ documented in this encounter Consult Notes * Margaret Kelley MD - 03/24/2023 7:48 AM CDT Images from the original note were not included. Psychiatric Consultation Note Requesting Provider: Dr. Mcmillan Reason for Consult: Suicidal ideation History of Present Illness: Balaji Mckeon is a 32 Y year-old male [facility], alcohol and cannabis use disorders, PTSD, ADHD, and anxiety who is admitted with requests for alcohol detoxification. Psychiatry is consulted for reason above. Per [facility] documentation from Dr. Reza: Balaji Mckeon is a 32 Y male with a history of alcohol withdrawal seizures, PTSD, and liver disease who presents to the emergency department with his parents for evaluation of alcohol withdrawal and suicidal ideation. The patient reports that he is experiencing alcohol withdrawal symptoms. He mentions that his last drink was this afternoon. He describes having two episodes of emesis with a red color present. He does smoke marijuana. He endorses anxiety, nausea, and suicidal ideation with no plan. He denies hallucinations, blood present in urine, and leg swelling. He also denies history of allergies to medication, tobacco use, asthma, diabetes, major s urgeries, endoscopy, and family medical issues. Of note, he mentions history of PTSD 2/2 his time in the [facility]. The patient has no further complaints or concerns. To nursing staff in the [facility], he endorsed passive SI without a plan. Denied history of self-injury Review of the medical record reveals: [facility] No [facility] readily viewable. From his system-generated problem list, I see diagnoses of cannabis and alcohol use disorders, anxiety, PTSD PDMP reviewed: dextroamph-amphet ER 20mg #56 for 28d filled on 02/26 Patient is seen at bedside. He is uncomfortable with symptoms of alcohol withdrawal and has difficulty attending to conversation fully. He does not, initially, have recollection of making suicidal statements. He does then recall sayingthis after a pause and then he rolls his eyes. He describes having intermittent thoughts that it would be easier if he simply did not wake up the next day. He denies ever having had thoughts about wanting to kill himself or thinking about suicide as an option. Denies ever thinking about specific ways to end his life. He denies a history of self-harm and suicide attempts. He looks forward to being healthy again but cannot recall when he last felt healthy. He is in [place] because he has been talking with the [facility]'s RRTP program with a plan to enter residential treatment after being treated for alcohol withdrawal. He brought himself to [facility] to check into the medical hospital with the goal of transitioning directly to RRTP. 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 Does not know if his jobis in [employer] at this point. He lives alone with his dog. He used to have firearms in the home, but his father took those earlier this summer. His father is also currently watching his dog. He is vague on discussing his psychiatric history. He reports that he was sober for six years before a relapse at some point this summer. He does not elaborate on these circumstances. He was sober for the one month prior to this current relapse (ongoing x1 week). He reports starting psychotropic medication for the first time this summer and feels that fucked me up. He has not been taking Lexapro. He does take trazodone PRN most nights and does find that helpful. He does not engage in a psychiatric ROS. He does report a history of VH during alcohol withdrawal but denies any at present With Balaji's permission, I called his father, Goyo, but was unable to reach him. Labs: 03/23/23 22:17 Sodium 136 Potassium 3.7 Chloride 98 CO2 17 (L) Anion Gap 24.7 (H) Blood Urea Nitrogen 21.3 (H) Creatinine 0.98 BUN/Creatinine Ratio 21.73 eGFR >60 Calcium, Total 8.2 (L) Glucose 100 Lipase 69 Magnesium 2.0 03/23/23 22:17 Albumin 4.1 Total Protein 7.5 Globulin 3.4 Albumin/Globulin Ratio 1.2 Aspartate Aminotransferase (AST) 526 (H) Alanine Aminotransferase (ALT) 476 (H) Alkaline Phosphatase 74 Bilirubin, Total 1.0 Bilirubin, Indirect 0.7 Bilirubin, Direct 0.3 03/23/23 22:17 WBC Count, Corrected 7.8 RBC Count 5.86 (H) Hemoglobin 18.2 (H) Hematocrit 51.5 (H) MCV 87.9 MCH 31.2 MCHC 35.4 RDW 13.6 Platelets 168 (L) Admission toxicology: BAL 0.39 at 2217; UDS +THC EK/17 Vent. Rate : 120 BPM ? Atrial Rate : 120 BPM ? P-R Int : 166 ms ?QRS Dur : 096 ms ?QT Int : 328 ms ? P-R-T Axes : 048 015 058 degrees ? QTc Int : 463 ms Sinus tachycardia Low voltage QRS ST elevation consider anterior injury or acute infarct 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 Mental Status Exam: Patient appropriately dressed and groomed . intermittent eye contact. Cooperative for exam, but appears quite uncomfortable. Has diffuse large amplitude tremors throughout his body. Diaphoretic. Grossly oriented. Attention is impaired. Speech is spontaneous but brief. No gross language errors. Moodis fine. Affect is not congruent. Restricted, tense, dysphoric. TP is goal- directed but concrete and avoidant. TC denies SI and AVH. Does not appear to be internally preoccupied. Insight is adequate IMPRESSION: 32yo with history below who is admitted for management of alcohol withdrawal syndrome. During the admission process, he endorsed passive SI. Psychiatry is consulted for risk assessment, as below. Risk assessment: Imminent risk of suicide (eg - self-directed violence made with the goal of causing ) is low. Long-term risk is moderate. Static risk factors: white, male, status Dynamic risk factors: alcohol use relapse; possible employment loss Protective factors: help-seeking, future-oriented, no personal history of suicide attempts; social supports; pet at home; firearms removed from residence Mitigation of acute risk factors may be achieved through supporting sobriety and addressing psychiatric symptoms (especially anxiety and sleep complaints) as he is willing to allow. At the moment, he is feeling very unwell with withdrawal symptoms and does not engage well in a review of his psychiatric symptomatology. Will plan to reassess later this admission. I would also, ideally, like to coordinate/confirm a safety plan with his father. From a risk perspective, I am reassured by his driving from several hours away to come to [place] with the goal of entering the treatment program available here to him. This demonstrates future orientation and motivation for recovery. DIAGNOSES: Alcohol use disorder, severe - Chronic condition with complexity PTSD, by reports - Chronic condition with complexity Cannabis use vs use disorder - Chronic condition with complexity PLAN: 1. Medications - will not resume Lexapro as he reports no benefit and not taking at home - can continue trazodone 100mg QHS PRN - I am hesitant to be too aggressive with medications, given that we do not have access to his records and all future psychiatric care will continue outside of our system. He may benefit from propranolol or clonidine, scheduled or PRN - would also be reasonable to consider naltrexone, if not yet done - would hold his long-acting stimulant until withdrawal well-controlled and risk of seizures minimized 2. Safety Concerns: as above, no concerns for imminent risk. Will d/c sitter and suicide precautions 3. Behavioral Strategies: no additional consults ordered at this time. He will work with RRT for admission there. May endorse targets for psychotherapeutic intervention 4. Legal Status: voluntary. Does not meet criteria for a psychiatric hold at this time 5. Decision-Making Capacity: not formally assessed 6. Disposition recommendations: per primary team. Patient desires to transition directly to residential treatment at the [facility] ([facility]), which would be most prudent, given his risk and geographic restrictions External notes reviewed for this assessment include those from primary team as documented above. Plan of care, including risk status, was reviewed with Dr. Monson. MDM: Patient's care is currently deemed to be HIGH RISK due to: Risks of morbidity without treatment, severe exacerbation, threat to life or bodily function and Imminent risk to self or others. Thank you for allowing psychiatry to participate in the care of this patient. Margaret Kelley MD Psychiatry [place] Suicide Risk Assessment: 03/23/2023 03/24/2023 Suicide Severity Rating Scale (C-SSRS) Screen 1. Have you wished you were or wished you could go to sleep and not wake up? Yes Yes Yes 2. Have you actually had any thoughts of killing yourself? No Yes Yes 3. Have you been thinking about how you might do this? Yes No 4. Have you had these thoughts and had some intention of acting on them? Yes Yes 5. Have you started to work out or worked out the details of how to kill yourself? Do you intend to carry out this plan? No No 6. (Admission) In the last 3 months / (Rescreen) Since you were last asked: have you done anything, started to do anything, or prepared to do anything to end your life? No Yes Yes documented in this encounter Nursing Notes * Oma De León RN - 03/26/2023 1:32 PM CDT Discharge orders are written and reviewed with patient. He verbalizes understanding of instructions.He will get pheno at OP pharmacy and is aware of when the last dose was. He is able to verify belongings, get dressed independently, and arrange his transportation. * Bebeto Brantley RN - 03/26/2023 8:28 AM CDT Behavioral Dysregulation/Withdrawal Specialist Note: Update: EMR reviewed. Patient on day 3 of admission. Continues on Phenobarbital taper. Trend of improvement in withdrawal consistent signs correlating with Phenobarbital taper. Lsst ETOH scores being0,0. Behavioral Dysregulation/Withdrawal Specialist will continue to follow peirpherally. Please feel free to call with questions, behaviors or concerns. Bebeto Brantley RN BSN Behavioral Dysregulation/Withdrawal Specialist Ext. [phone] * Michael Washington RN - 03/25/2023 10:34 AM CDT Behavioral Dysregulation/Withdrawal Specialist follow up note: Reason for referral: Alcohol withdrawal protocol Length of stay: 2 days Impressions/Interview: EMR reviewed. Patient discussed with Mar RN. This Behavioral Dysregulation/Withdrawal Specialist met with patient at chairside. Affect presented was: smiling occasionally. Patient was cooperative in interview. Oriented to self, month, date, year, place. Denies hallucinations. No observed response to internal stimuli. Linear in discussion. Organized in content. Says that he feels his withdrawal is improved. Reports sleep last night as incomplete. Withdrawal Assessment Update: Patient presents the following symptoms consistent with alcohol withdrawal: systolic hypertension, diastolic hypertension. Recommendations/Course: Continue to monitor for withdrawal. Trend of improvement in withdrawal consistent signs correlating with Phenobarbital including dose increase. Discussed strategies of care including some risk of breakthrough signs today; that if he is able to sleep soundly tonight that would typically be associated with decreased risk of further withdrawal escalation. Behavioral Dysregulation/Withdrawal Specialist will continue to follow. Please feel free to call with questions, behaviors or concerns. Michael Washington RN, [facility] Behavioral Dysregulation/Withdrawal Specialist Ext. [phone] * Mar Cortes RN - 03/24/2023 7:06 PM CDTSummary: transfer 1940: Pt arrived as a transfer from [facility] VIA wheel chair. Upon arrival ETOH score 5. PRN high dosepheno given. Pt expressing hopes to eat. Diet advanced to GI soft per previous epic order. Denies feeling of nausea. * Enma Boswell RN - 03/24/2023 2:35 PM CDT EVENT: ALCOHOL WITHDRAWAL D: Patient is having increased symptoms of alcohol withdrawal. PRN and scheduled does of phenobarbital have been utilized without change in symptoms. A: Manugrapher paged Dr. Monson R: Dr. Monson ordered the higher dose of the scheduled phenobarbital. * Michael Washington RN - 03/24/2023 12:50 PM CDT Behavioral Dysregulation/Withdrawal Specialist Note: Reason for referral: Alcohol withdrawal protocol, Phenobarbital taper Length of stay: 1 day Impressions/Interview: EMR reviewed. Patient discussed with Enma RN, Marta RN. This BehavioralDysregulation/Withdrawal Specialist met with patient at bedside. Affect presented was: neutral. Patient was cooperative in interview. Oriented to self, month, date, year, place. Denies hallucinations. No observed response to internal stimuli. Linear in discussion. Organized in content. Describes his withdrawal as worse than typical. Alcohol withdrawal/Alcohol use assessment: Last drink: 0.39 yesterday at 22:17. Patient reports drinking about a half liter per day for a week. History of withdrawal symptoms: hand tremors, anxiety, hallucinations and seizures. Has history ofseizures. Has history of hallucinations/delirium. Lab values consistent with chronic alcohol use: AST/ALT elevation, low magnesium, low platelets. Current signs/symptoms consistent with alcohol withdrawal: hand tremors, anxiety and restlessness. See psychiatry note regarding patient [facility]. Reports drug history as: none. Recommendations/Course: Continue to monitor for withdrawal. Discussed strategies of care. Behavioral Dysregulation/Withdrawal Specialist will continue to follow. Please feel free to call with questions, behaviors or concerns. Michael Washington RN, [facility] Behavioral Dysregulation/Withdrawal Specialist Ext. [phone] documented in this encounter ED Notes * Ca Tanner RN - 03/23/2023 11:53 PM CDT ED Handoff [facility] Introduction: Name: Ca Phone #: [phone] Patient: Balaji Mckeon 32 Y male 1990 [employer] Needed: NO Assessment: Admitting Diagnosis: EtOH WD, SI Triage Note: General triage information: Presents to ED with ETOH withdrawal. States last drink was this morning. States small amount of alcohol daily. Vomiting - blood in vomit. Hospitalized for detox within thepast month - states just started drinking again over past few weeks. Patient also endorses SI - denies having a plan. Has not self harmed. Hx of withdrawal seizures. (03/23/232024) Nursing Note First: Additional intoxication information: Patient presents to the ETC for c/o ETOH withdrawal and SI. Low risk SI. States has had thoughts about suicide but no intent to act or plan. Drinking daily, again, over (03/23/232138) Nursing Note Last: Additional intoxication information: Patient presents to the ETC for c/o ETOH withdrawal and SI. Low risk SI. States has had thoughts about suicide but no intent to act or plan. Drinking daily, again, over (03/23/232138) Mental Status/LOC: Alert & Oriented Vitals: BP 139/88 (BP position: Sitting) Pulse (!) 136 Temp 97.8 ??F (36.6 ??C) Resp 20 SpO2 94% EKG: EKG Results Procedure - - - Date/Time ECG [[id number]] Collected: 03/23/232041 Order Status: Completed Updated: 03/23/232247 Narrative: Test Reason : ETC medical screening Vent. Rate : 120 BPM Atrial Rate : 120 BPM P-R Int : 166 ms QRS Dur : 096 ms QT Int : 328 ms P-R-T Axes : 048 015 058 degrees QTc Int : 463 ms Sinus tachycardia Low voltage QRS ST elevation consider anterior injury or acute infarct ACUTE DC / STEMI Abnormal ECG No previous ECGs available Referred By: YVONNE Electronically Signed By:BETITO HOFFMAN M.D. (EP Labs: Labs Reviewed BASIC METABOLIC PANEL - Abnormal Result Value Ref Range Sodium 136 136 - 146 mmol/L Potassium 3.7 3.5 - 5.1 mmol/L Chloride 98 98 - 107 mmol/L CO2 17 (*) 22 - 29 mmol/L Anion Gap 24.7 (*) 10.0 - 20.0 mmol/L Creatinine 0.98 0.72 - 1.25 mg/dL Blood Urea Nitrogen 21.3 (*) 10.0 - 20.0 mg/dL BUN/Creatinine Ratio 21.73 11.70 - 22.90 ratio Calcium, Total 8.2 (*) 8.6 - 10.5 mg/dL Glucose 100 70 - 100 mg/dL eGFR >60 >=60 mL/min/1.73m(2) ETHANOL - Abnormal Ethanol 388 (*) <=10 mg/dL Ethanol 0.39 % Narrative: Increased levels of Lactate and LDH may cause elevated Ethyl Alcohol results. LIVER FUNCTION PANEL - Abnormal Albumin 4.1 3.5 - 5.0 g/dL Total Protein 7.5 6.0 - 8.0 g/dL Globulin 3.4 2.0 - 3.5 g/dL Albumin/Globulin Ratio 1.2 1.0 - 2.0 Aspartate Aminotransferase (AST) 526 (*) 5 - 41 U/L Alanine Aminotransferase (ALT) 476 (*) 8 - 45 U/L Alkaline Phosphatase 74 50 - 136 U/L Bilirubin, Total 1.0 0.2 - 1.2 mg/dL Bilirubin, Indirect 0.7 0.0 - 0.7 mg/dL Bilirubin, Direct 0.3 0.0 - 0.5 mg/dL COMPLETE BLOOD COUNT AND DIFFERENTIAL - Abnormal WBC Count, Corrected 7.8 3.9 - 11.9 10(3)/uL RBC Count 5.86 (*) 4.08 - 5.79 10(6)/uL Hemoglobin 18.2 (*) 13.1 - 17.1 g/dL Hematocrit 51.5 (*) 38.7 - 51.4 % MCV 87.9 82.9 - 100.6 fL MCH 31.2 27.6 - 33.2 pg MCHC 35.4 32.0 - 36.0 g/dL RDW 13.6 10.0 - 16.2 % Platelets 168 (*) 179 - 450 10(3)/uL MPV 7.8 7.4 - 10.4 fL % Neutrophils 54.0 43.0 - 80.0 % % Lymphocytes 40.7 16.0 - 49.0 % % Monocytes 4.4 0.0 - 10.0 % % Eosinophils 0.3 0.0 - 7.0 % % Basophils 0.6 0.0 - 2.0 % Abs Neutrophils 4.2 1.6 - 8.1 10(3)/uL Abs Lymphocytes 3.2 0.9 - 3.5 10(3)/uL Abs Monocytes 0.3 0.0 - 1.1 10(3)/uL Abs Eosinophils 0.0 0.0 - 0.8 10(3)/uL Abs Basophils 0.0 0.0 - 0.2 10(3)/uL MAGNESIUM - Normal Magnesium 2.0 1.8 - 2.6 mg/dL PROTHROMBIN TIME AND INR - Normal Prothrombin Time 12.0 9.4 - 12.5 sec INR 1.0 0.9 - 1.1 INR COMPLETE BLOOD COUNT AND DIFFERENTIAL Narrative: The following orders were created for panel order COMPLETE BLOOD COUNT AND DIFFERENTIAL. Procedure Abnormality Status --------- ------ COMPLETE BLOOD COUNT AND...[[id number]] Abnormal Final result Please view results for these tests on the individual orders. URINALYSIS WITH REFLEX TO MICROSCOPIC DRUGS OF ABUSE SCREEN, URINE URINE CULTURE Imaging: No results found. LDAs: Peripheral IV Catheter 03/23/23 Antecubital;Left (Active) Site condition WDL 03/23/232228 Line Status Flushed;Blood returned;Labs drawn 03/23/232228 Wounds: No Meds: Medication Administration This Visit Date/Time Order Dose Route Action 03/23/20232248 CDT ondansetron (ZOFRAN ODT) tbdl 4 mg 4 mg oral Given 03/23/20232301 CDT thiamine 100 mg in dextrose 5 % in water (D5W) 50 mL IV piggyback 100 mg IV infusion New Bag/Start Infusion 03/23/20232350 CDT folic acid 1 mg in dextrose 5 % in water (D5W) 50 mL IV piggyback 1 mg IV infusion New Bag/Start Infusion 03/23/20232248 CDT pantoprazole (PROTONIX) injectable 40 mg 40 mg intravenous Given Belongings: Dentures: None (03/23/232157) Glasses/Contacts: None (03/23/232157) Hearing aid?: None (03/23/232157) Assistive device here with patient: None (03/23/232157) Medical devices from home: None (03/23/232157) Other valuables not previous listed (please describe):: cell phone and watch with patient () Other clothes - List item(s) and number: socks, shoes, pants, tshirt, jacket, (03/23/232157) Situation: Code Status: Full Code Living Situation: Independent Activity: Independent Assistive Devices: None Safety Concerns: Infection/Isolation: None Unique Treatment Plan: NO Safety Concerns: 1:1 Bariatric Bed Required: NO Ownership: Admitting Service: Hospitalist Primary Contact: Father Primary Contact Updated: YES Next: Pending Specimens: No Admitting MD saw Pt in ED: YES Outstanding Infusion: YES Fluids Additional Information: * Corey Reza MD - 03/23/2023 7:45 PM CDT Balaji Mckeon 1990 Chief Complaint Chief Complaint Patient presents with ??? Chemical Dependency History of Present Illness Balaji Mckeon is a 32 Y male with a history of alcohol withdrawal seizures, PTSD, and liver diseasewho presents to the emergency department with his parents for evaluation of alcohol withdrawal and suicidal ideation. The patient reports that he is experiencing alcohol withdrawal symptoms. He mentions that his last drink was this afternoon. He describes having two episodes of emesis with a red color present. He does smoke marijuana. He endorses anxiety, nausea, and suicidal ideation with no plan. He denies hallucinations, blood present in urine, and leg swelling. He also denies history of allergies to medication, tobacco use, asthma, diabetes, major surgeries, endoscopy, and family medical i ssues. Of note, he mentions history of PTSD 2/2 his time in the [facility]. The patient has no further complaints or concerns. Independent Historian: Patient & Parents Review of External Notes: None Allergies No Known Allergies Medications No current facility-administered medications on file prior to encounter. No current outpatient medications on file prior to encounter. Past Medical History No past medical history on file. There is no problem list on file for this patient. Past Surgical History No past surgical history on file. Family History No family history on file. Vitals Initial Vitals BP Temp Pulse Heart Rate (alarm security or surveillance monitor) Resp SpO2 O2 flow rate (LPM) O2 source Height 03/23/23202803/23/23202803/23/232028 -- 03/23/23202803/23/232028 -- 03/23/23202803/24/23 0104 139/88 97.8 ??F (36.6 ??C) (!) 136 20 94 % Room air 1.829 m (6') Weight 03/24/23 010 95.6 kg (210 lb 12.2 oz) Physical Exam Vitals and nursing note reviewed. Constitutional: Appearance: Normal appearance. HENT: Head: Normocephalic and atraumatic. Right Ear: External ear normal. Left Ear: External ear normal. Nose: Nose normal. Eyes: Extraocular Movements: Extraocular movements intact. Conjunctiva/sclera: Conjunctivae normal. Cardiovascular: Comments: Borderline tachycardic, regular rhythm Pulmonary: Effort: Pulmonary effort is normal. No respiratory distress. Musculoskeletal: Cervical back: Normal range of motion. Skin: General: Skin is warm and dry. Neurological: General: No focal deficit present. Mental Status: He is alert. Motor: Tremor present. Psychiatric: Attention and Perception: He does not perceive auditory or visual hallucinations. Mood and Affect: Mood is anxious. Speech: Speech normal. Behavior: Behavior is cooperative. Thought Content: Thought content includes suicidal ideation. Thought content does not include homicidal ideation. ECG EKG Results Procedure - - - Date/Time ECG [[id number]] Collected: 03/23/232041 Order Status: Completed Updated: 03/23/232247 Narrative: Test Reason : ETC medical screening Vent. Rate : 120 BPM Atrial Rate : 120 BPM P-R Int : 166 ms QRS Dur : 096 ms QT Int : 328 ms P-R-T Axes : 048 015 058 degrees QTc Int : 463 ms Sinus tachycardia Low voltage QRS ST elevation consider anterior injury or acute infarct ACUTE DC / STEMI Abnormal ECG No previous ECGs available Referred By: YVONNE Electronically Signed By:BETITO HOFFMAN M.D. (EP Laboratory Results: RAINBOW DRAW Narrative The following orders were created for panel order RAINBOW DRAW. Procedure Abnormality Status --------- ------ LIGHT BLUE TUBE[[id number]] Final result LIGHT GREEN TUBE[[id number]] Final result LAVENDER TUBE[[id number]] Final result GOLD/SST TUBE[[id number]] Final result Please view results for these tests on the individual orders. COMPLETE BLOOD COUNT AND DIFFERENTIAL Narrative The following orders were created for panel order COMPLETE BLOOD COUNT AND DIFFERENTIAL. Procedure Abnormality Status --------- ------ COMPLETE BLOOD COUNT AND...[[id number]] Abnormal Final result Please view results for these tests on the individual orders. BASIC METABOLIC PANEL Result Value Ref Range Status Sodium 136 136 - 146 mmol/L Final Potassium 3.7 3.5 - 5.1 mmol/L Final Chloride 98 98 - 107 mmol/L Final CO2 17 (L) 22 - 29 mmol/L Final Anion Gap 24.7 (H) 10.0 - 20.0 mmol/L Final Creatinine 0.98 0.72 - 1.25 mg/dL Final Blood Urea Nitrogen 21.3 (H) 10.0 - 20.0 mg/dL Final BUN/Creatinine Ratio 21.73 11.70 - 22.90 ratio Final Calcium, Total 8.2 (L) 8.6 - 10.5 mg/dL Final Glucose 100 70 - 100 mg/dL Final eGFR >60 >=60 mL/min/1.73m(2) Final ETHANOL Result Value Ref Range Status Ethanol 388 (H) <=10 mg/dL Final Ethanol 0.39 % Final Narrative Increased levels of Lactate and LDH may cause elevated Ethyl Alcohol results. LIVER FUNCTION PANEL Result Value Ref Range Status Albumin 4.1 3.5 - 5.0 g/dL Final Total Protein 7.5 6.0 - 8.0 g/dL Final Globulin 3.4 2.0 - 3.5 g/dL Final Albumin/Globulin Ratio 1.2 1.0 - 2.0 Final Aspartate Aminotransferase (AST) 526 (H) 5 - 41 U/L Final Alanine Aminotransferase (ALT) 476 (H) 8 - 45 U/L Final Alkaline Phosphatase 74 50 - 136 U/L Final Bilirubin, Total 1.0 0.2 - 1.2 mg/dL Final Bilirubin, Indirect 0.7 0.0 - 0.7 mg/dL Final Bilirubin, Direct 0.3 0.0 - 0.5 mg/dL Final MAGNESIUM Result Value Ref Range Status Magnesium 2.0 1.8 - 2.6 mg/dL Final PROTHROMBIN TIME AND INR Result Value Ref Range Status Prothrombin Time 12.0 9.4 - 12.5 sec Final INR 1.0 0.9 - 1.1 INR Final COMPLETE BLOOD COUNT AND DIFFERENTIAL Result Value Ref Range Status WBC Count, Corrected 7.8 3.9 - 11.9 10(3)/uL Final RBC Count 5.86 (H) 4.08 - 5.79 10(6)/uL Final Hemoglobin 18.2 (H) 13.1 - 17.1 g/dL Final Hematocrit 51.5 (H) 38.7 - 51.4 % Final MCV 87.9 82.9 - 100.6 fL Final MCH 31.2 27.6 - 33.2 pg Final MCHC 35.4 32.0 - 36.0 g/dL Final RDW 13.6 10.0 - 16.2 % Final Platelets 168 (L) 179 - 450 10(3)/uL Final MPV 7.8 7.4 - 10.4 fL Final % Neutrophils 54.0 43.0 - 80.0 % Final % Lymphocytes 40.7 16.0 - 49.0 % Final % Monocytes 4.4 0.0 - 10.0 % Final % Eosinophils 0.3 0.0 - 7.0 % Final % Basophils 0.6 0.0 - 2.0 % Final Abs Neutrophils 4.2 1.6 - 8.1 10(3)/uL Final Abs Lymphocytes 3.2 0.9 - 3.5 10(3)/uL Final Abs Monocytes 0.3 0.0 - 1.1 10(3)/uL Final Abs Eosinophils 0.0 0.0 - 0.8 10(3)/uL Final Abs Basophils 0.0 0.0 - 0.2 10(3)/uL Final LIPASE Result Value Ref Range Status Lipase 69 8 - 78 U/L Final URINALYSIS WITH REFLEX TO MICROSCOPIC Result Value Ref Range Status Color, Urine Light Yellow Yellow Final Clarity, Urine Clear Clear Final Specific [place], Urine 1.017 1.005 - 1.035 Final Glucose, Urine Negative Negative Final Bilirubin, Urine Negative Negative Final Ketone, Urine Trace (A) Negative Final Blood, Urine 1+ (A) Negative Final pH, Urine 6.0 5.0 - 8.5 pH Final Protein, Urine Trace (A) Negative Final Urobilinogen, Urine <2.0 <2.0 EU/dL Final Nitrite, Urine Negative Negative Final Leukocyte Esterase, Urine Negative Negative Final DRUGS OF ABUSE SCREEN, URINE Result Value Ref Range Status Amphetamines, Qualitative, Urine Negative Negative Final Barbiturates, Qualitative, Urine Negative Negative Final Benzodiazepines, Urine Negative Negative Final Buprenorphine, Urine Negative Negative Final Cocaine, Urine Negative Negative Final Methadone, Qualitative, Urine Negative Negative Final Methamphetamine, Qualitative, Urine Negative Negative Final Opiates, Urine Negative Negative Final Oxycodone, Urine Qualitative, Urine Negative Negative Final Phencyclidine, Urine Negative Negative Final Propoxyphene, Urine Qualitative, Urine Negative Negative Final THC Cannabinoids, Urine Positive (A) Negative Final Tricyclic Antidepressants, Qualitative, Urine Negative Negative Final Narrative Screening Thresholds for Drugs: 10 ng/mL Buprenorphine 25 ng/mL Phencyclidine (PCP) 50 ng/mL Cannabinoids (THC) 100 ng/mL Opiates 100 ng/mL Oxycodone 150 ng/mL Benzodiazepines 150 ng/mL Cocaine 200 ng/mL Barbiturates 300 ng/mL Propoxyphene 300 ng/mL Tricyclic Antidepressants 500 ng/mL Amphetamine 500 ng/mL Methamphetamine 200 ng/mL Methadone Note: This test was performed to aid in medical decision making. It is not approved for legal or forensic uses. URINALYSIS, MICROSCOPIC ONLY Result Value Ref Range Status RBC, Urine 3-5 (A) None Seen, 1-2 /HPF Final WBC, Urine None Seen None Seen, 1-5 /HPF Final Bacteria, Urine None Seen None Seen, Few /HPF Final Squamous Epithelial Cells, Urine None Seen None Seen, 1-5 /HPF Final Mucus, Urine Occasional (A) None Seen /HPF Final Imaging No results found. Procedures None. Assessment: 21:35 I performed initial history and physical exam ED Course Independent Interpretation (X-rays, CTs, rhythm strip): EKG c sinus tachycardia, no ST elevations Consultations/Discussion of Management or Tests: Hospitalist Social Determinants of Health affecting care: Alcohol Use Meds Ordered and Administered During This Visit ondansetron (ZOFRAN ODT) tbdl 4 mg (4 mg oral Given 03/23/232248) multivitamin with folic acid 400 mcg tablet 1 Tablet (1 Tablet oral Given 03/24/2319) thiamine (VIT B1) tablet 100 mg ( oral See Alternative 03/24/2338) Or thiamine 100 mg in dextrose 5 % in water (D5W) 50 mL IV piggyback (0 mg IV infusion Stopped 03/24/2338) Or thiamine 100 mg/mL injection 100 mg ( intramuscular See Alternative 03/24/2338) folic acid (FOLVITE) tablet 1 mg ( oral See Alternative 03/23/232352) Or folic acid 1 mg in dextrose 5 % in water (D5W) 50 mL IV piggyback (0 mg IV infusion Stopped 03/23/232352) pantoprazole (PROTONIX) injectable 40 mg (40 mg intravenous Given 03/23/232248) dextrose 5% and sodium chloride 0.9% (D5NS) IV soln 1,000 mL (1,000 mL IV infusion New Bag/Start Infusion 03/24/23 0044) ESPERANZA Mckeon is a 32 Y male with a history of alcohol withdrawal seizures, PTSD, and liver diseasewho presents to the emergency department with his parents for evaluation of alcohol withdrawal and suicidal ideation. Upon arrival to the emergency department, the patient's vital signs were notable for borderline tachycardia. Physical examination as above. Given patient's history of EtOH WD, placed him on WD protocol with phenobarbital. Patient's initial EtOH level here in the ED was 388. Patient did have somewhat of an anion gap elevation with 24.7. LFTs were also elevated with AST greater than ALT consistent with EtOH history. Initiated patient on bolus of IVF with D5 NS. Patient was also reporting suicidalideation. Spoke with hospitalist regarding admission for management of EtOH withdrawal as well as inpatient psychiatry consultation for suicidal ideation. She agrees to evaluate and will admit. Disposition Decision to Admit Time Date/Time Event User Comments 03/23/232308 ADMIT DISPO SELECTED COREY REZA ED Disposition set to Admit Inpatient Discharge Medications ED Prescriptions None Discharge Instructions Diagnosis ICD-10-CM 1. Suicidal ideation R45.851 2. Alcohol withdrawal syndrome with complication (HCC) F10.939 3. Hematemesis with nausea K92.0 4. Elevated LFTs R79.89 Barbara Moreau, am serving as a scribe to document services personally performed by Corey Reza MD, based on my observations and the provider's statements to me. 03/23/2023 [facility] Portions of this medical record were completed by a scribe. UPON MY REVIEW AND AUTHENTICATION BY ELECTRONIC SIGNATURE, this conforms (a) I performed the applicable clinical services, and (b) the record is accurate. documented in this encounter Miscellaneous Notes * Care Plan Note - Oma De León RN - 03/26/2023 1:28 PM CDT Alert and orientated, ETOH scoring 0-1. VSS ( DBP elevated at noon check and reason for score of 1), afebrile, RA, off cardiac monitoring for medical status. Denies pain and suicidal ideation. He is observed resting between care or walking the [facility] hallway. PO intake 100% of meals. He is cooperative with staff and states his intention for alcohol treatment at the [facility] starting on Wednesday. Will staywith parents until then. He states he is ready for discharge today. Problem: Suicide, Risk of Goal: Absence of self-harm Outcome: Progressing this shift Problem: Anxiety Goal: Decreased Anxiety Outcome: Progressing this shift Problem: Cognitive-Perceptual Pattern - Impaired Goal: Cognitive status restored to baseline Outcome: Progressing this shift Problem: Sleep Pattern Disturbance Goal: Attainment of adequate rest Outcome: Progressing this shift Problem: Transition Readiness Goal: Able to safely transition to next level of care Outcome: Progressing this shift * Care Plan Note - Charles Curry RN - 03/26/2023 4:17 AM CDT Pt A&O x4, VSS, ETOH withdrawal scores 0-4 one PRN dose of Pheno given for increased anxiety. Pt did have a hard time getting to sleep even with trazadone 100mg and melatonin 6mg, but was able tofinally fall asleep around 0100 and slept for the remainder of the night. He is now on PO pheno taper dose and would like to discharge to treatment program at the [facility]. Pt was not at risk for any suicidal ideation. Problem: Suicide, Risk of Goal: Absence of self-harm Outcome: Adequate for discharge Problem: Anxiety Goal: Decreased Anxiety Outcome: Progressing this shift Problem: Cognitive-Perceptual Pattern - Impaired Goal: Cognitive status restored to baseline Outcome: Adequate for discharge Problem: Sleep Pattern Disturbance Goal: Attainment of adequate rest Outcome: Progressing this shift Problem: Transition Readiness Goal: Able to safely transition to next level of care Outcome: Adequate for discharge * Care Plan Note - Mar Cortes RN - 03/25/2023 12:35 PM CDT ETOH scores 5 and 1. PRN pheno given with good response. Pt has orders to discontinue alarm security or surveillance monitor and to transfer to medical when bed is available. Problem: Suicide, Risk of Goal: Absence of self-harm Outcome: Progressing this shift Problem: Anxiety Goal: Decreased Anxiety Outcome: Progressing this shift Problem: Cognitive-Perceptual Pattern - Impaired Goal: Cognitive status restored to baseline Outcome: Progressing this shift Problem: Sleep Pattern Disturbance Goal: Attainment of adequate rest Outcome: Progressing this shift Problem: Transition Readiness Goal: Able to safely transition to next level of care Outcome: Progressing this shift * Care Plan Note - Christiana Hernandez, Student/Meat Dresser - 03/25/2023 5:36 AM CDT Pt Aox4. No complaints of pain overnight. Rested quietly most of the night. Scoring between 2-5 foralcohol withdrawal for BP, HR, and tremors. Received 1 dose of PRN pheno overnight and 2 dose of scheduled pheno. Pt not having suicidal ideation. VSS. No events noted on the alarm security or surveillance monitor. Able totransfer to lower level of care either today or tomorrow. Problem: Suicide, Risk of Goal: Absence of self-harm Outcome: Progressing this shift Problem: Anxiety Goal: Decreased Anxiety Outcome: Progressing this shift Problem: Cognitive-Perceptual Pattern - Impaired Goal: Cognitive status restored to baseline Outcome: Progressing this shift Problem: Sleep Pattern Disturbance Goal: Attainment of adequate rest Outcome: Progressing this shift Problem: Transition Readiness Goal: Able to safely transition to next level of care Outcome: Progressing this shift * Care Plan Note - Enma Boswell RN - 03/24/2023 6:12 PM CDT STATUS [id number]: Patient is vitally stable, room air, afebrile. UOP adequate. One bowel movement this shift, formed.LR infusing at 100 ml/hr. Alcohol withdrawal assessment consistently at 6 with scheduled and PRN phenobarbital utilized. No seizure activity this shift, seizure precautions present. Up with stand by assist. Problem: Suicide, Risk of Goal: Absence of self-harm Outcome: Progressing this shift Problem: Anxiety Goal: Decreased Anxiety Outcome: Not progressing this shift Problem: Cognitive-Perceptual Pattern - Impaired Goal: Cognitive status restored to baseline Outcome: Progressing this shift Problem: Sleep Pattern Disturbance Goal: Attainment of adequate rest Outcome: Progressing this shift Problem: Transition Readiness Goal: Able to safely transition to next level of care Outcome: Progressing this shift * Initial Assessments - Kaitlynn Fernandes SW - 03/24/2023 1:14 PM CDT Home Health Care Worker Initial Assessment Reason for Social Work Consult Discharge/Transitional Care Needs Assessment Transitional Barriers: Not medically ready for discharge Interventions SW attended morning report via Teams; reviewed chart. Consulted with Psychiatry; patient is hopeful to go to [facility] treatment facility. Requested CM-A's send referral to the [facility] treatment facility. HUSSEIN attempted to call [facility] program; unable to connect; unable to leave avoicemail. HUSSEIN will attempt again tomorrow. Discharge Plan Location: Treatment Facility Services: Undetermined * Initial Assessments - Dorothy Bhatt RN - 03/24/2023 9:20 AM CDT nurse quality Screening nurse quality has screened the patient for current clinical risk factors that may impact care progression and transition; no needs identified at this time. nurse quality will not follow. Please place new Care Management Screening for concerns regarding care coordination or medical needs. * Care Plan Note - Loretta Wing RN - 03/24/2023 5:33 AM CDT Hypertensive this shift and tachy. Alert and oriented. Scoring on ETOH withdrawal. Managed with scheduled and PRN pheno. Up stand by assist to bathroom. Reports some nausea this shift, Prn given withsome relief. Increased anxiety and shakiness this shift. Call light appropriate. Alert and oriented. 1:1 present in room. Psych consult placed for this AM to determine SI and sitter needs. Problem: Suicide, Risk of Goal: Absence of self-harm Outcome: Progressing this shift Problem: Anxiety Goal: Decreased Anxiety Outcome: Progressing this shift Problem: Cognitive-Perceptual Pattern - Impaired Goal: Cognitive status restored to baseline Outcome: Progressing this shift Problem: Sleep Pattern Disturbance Goal: Attainment of adequate rest Outcome: Progressing this shift Problem: Transition Readiness Goal: Able to safely transition to next level of care Outcome: Progressing this shift documented in this encounter Plan of Treatment Not on file documented as of this encounter Procedures Procedure Name Priority Date/Time Associated Diagnosis Comments EXTRA TUBES Routine 03/26/2023 6:31 AM CDT LAVENDER TUBE Routine 03/26/2023 6:31 AM CDT MAGNESIUM Routine 03/26/2023 6:31 AM CDT BASIC METABOLIC PANEL Routine 03/26/2023 6:31 AM CDT COMPREHENSIVE METABOLIC PANEL Routine 03/25/2023 6:12 AM CDT LEUKOCYTE COUNT/HEMOGLOBIN/PLATE LET COUNT Routine 03/25/2023 6:12 AM CDT MAGNESIUM Routine 03/25/2023 6:12 AM CDT CARDIAC RHYTHM STRIP 03/24/2023 8:00 PM CDT CARDIAC RHYTHM STRIP 03/24/2023 7:59 PM CDT HEPATITIS C AB Routine 03/24/2023 1:05 PM CDT HEPATITIS A AB, IGM Routine 03/24/2023 1 :05 PM CDT HEPATITIS B CORE AB, IGM Routine 03/24/2023 1:05 PM CDT HEPATITIS B SURFACE AG Routine 1:05 PM CDT PLATELET COUNT Add On 03/24/2023 1:05 PM CDT MAGNESIUM Routine 03/24/2023 8:04 AM CDT LIVER FUNCTION PANEL Routine 03/24/2023 8:04 AM CDT BASIC METABOLIC PANEL Routine 03/24/2023 8:04 AM CDT HEMOGLOBIN Routine 03/24/2023 8:03 AM CDT US ABD RUQ Routine 03/24/2023 7:43 AM CDT DRUGS OF ABUSE SCREEN, URINE STAT 03/24/2023 12:18 AM CDT URINALYSIS, MICROSCOPIC ONLY STAT 03/24/2023 12:18 AM CDT URINALYSIS WITH REFLEX TO MICROSCOPIC STAT 03/24/2023 12:18 AM CDT URINE CULTURE STAT 03/24/2023 12:18 AM CDT COMPLETE BLOOD COUNT AND DIFFERENTIAL STAT 03/23/2023 10:17 PM CDT GOLD/SST TUBE STAT 03/23/2023 10:17 PM CDT LAVENDER TUBE STAT 03/23/2023 10:17 PM CDT LIGHT GREEN TUBE STAT 03/23/2023 10:1 7 PM CDT LIGHT BLUE TUBE STAT 03/23/2023 10:17 PM CDT RAINBOW DRAW STAT 03/23/2023 10:17 PM CDT ETHANOL STAT 03/23/2023 10:17 PM CDT LIPASE Add On 03/23/2023 10:17 PM CDT MAGNESIUM STAT 03/23/2023 10:17 PM CDT LIVER FUNCTION PANEL STAT 03/23/2023 10:17 PM CDT PROTHROMBIN TIME AND INR STAT 03/23/2023 10:17 PM CDT TROPONIN I Add On 03/23/2023 10:17 PM CDT COMPLETE BLOOD COUNT AND DIFFERENTIAL STAT 03/23/2023 10:17 PM CDT BASIC METABOLIC PANEL STAT 03/23/2023 10:17 PM CDT ECG STAT 03/23/2023 8:42 PM CDT documented in this encounter Results * LAVENDER TUBE (03/26/2023 6:31 AM CDT) Only the most recent of2 resultswithin the time period is included. Blood VENOUS BLOOD / Unknown 03/26/2023 6:31 AM CDT 03/26/2023 7:23 AM CDT Shauna Deshpande MD LAB CHEMISTRY ORDERA BLES Performing Organization Address City/[facility]/ZIP Co de Phone Number [facility] [address] [place] [address], [place] [phone] * MAGNESIUM (03/26/2023 6:31 AM CDT) Only the most recent of4 resultswithin the time period is included. Magnesium 2.3 1.8 - 2.6 mg/dL 03/26/2023 7:42 AM CDT [facility] Blood VENOUS BLOOD / Unknown Venipuncture / Unknown 03/26/2023 6:31 AM CDT 03/26/2023 7:11 AM CDT Robles Mcmillan MD LAB CHEMISTRY OR DERABLES Performing Organization Address City/[facility]/ZIP Co de Phone Number [facility] [address] [place] [address], [place] [phone] * (ABNORMAL) BASIC METABOLIC PANEL (03/26/2023 6:31 AM CDT) Only the most recent of3 resultswithin the time period is included. Sodium 134(L) 136 - 146 mmol/L 03/26/2023 7:58 AM T [facility] Potassium 3.5 3.5 - 5.1 mmol/L 03/26/2023 7:58 AM CDT [facility] Chloride 100 98 - 107 mmol/L 03/26/2023 7:58 AM CDT [facility] CO2 25 22 - 29 mmol/L 03/26/2023 7:58 AM T [facility] Anion Gap 12.5 10.0 - 20.0 mmol/L 03/26/2023 7:58 AM [facility] Creatinine 0.93 0.72 - 1.25 mg/dL 03/26/2023 7:58 AM T [facility] Blood Urea Nitrogen 8.5(L) 10.0 - 20.0 mg/dL 03/26/2023 7:58 AM [facility] BUN/Creatinine Ratio 9.14(L) 11.70 - 22.90 ratio 03/26/2023 7:58 AM [facility] Calcium, Total 8.9 8.6 - 10.5 mg/dL 03/26/2023 7:58 AM [facility] Glucose 113(H) 70 - 100 mg/dL 03/26/2023 7:58 AM [facility] eGFR >60 >=60 mL/min/1. 73m(2) 03/26/2023 7:58 AM [facility] Comment:Calculation based on the Chronic Kidney Disease Epidemiology Collaboration (CKD-EPI) equation refit without adjustment for race. eCrCl (Rx) - Adults 147.9 mL/min 03/26/2023 7:58 AM [facility] Blood VENOUS BLOOD / Unknown Venipuncture / Unknown 03/26/2023 6:31 AM CDT 03/26/2023 7:11 AM CDT Baldemar Monson MD LAB CHEMISTRY ORDERA BLES [facility] [address] [place] [address], [place] [phone] * (ABNORMAL) COMPREHENSIVE METABOLIC PANEL (03/25/2023 6:12 AM CDT) Sodium 134(L) 136 - 146 mmol/L 03/25/2023 6:49 AM CDT [facility] Potassium 3.8 3.5 - 5.1 mmol/L 03/25/2023 6:49 AM CDT [facility] Chloride 102 98 - 107 mmol/L 03/25/2023 6:49 AM CDT [facility] CO2 21(L) 22 - 29 mmol/L 03/25/2023 6:49 AM CDT [facility] Anion Gap 14.8 10.0 - 20.0 mmol/L 03/25/2023 6:49 AM CDT [facility] Creatinine 0.84 0.72 - 1.25 mg/dL 03/25/2023 6:49 AM CDT [facility] Blood Urea Nitrogen 8.1(L) 10.0 - 20.0 mg/dL 03/25/2023 6:49 AM CDT [facility] BUN/Creatinine Ratio 9.64(L) 11.70 - 22.90 ratio 03/25/2023 6:49 AM CDT [facility] Calcium, Total 8.3(L) 8.6 - 10.5 mg/dL 03/25/2023 6:49 AM CDT [facility] Glucose 113(H) 70 - 100 mg/dL 03/25/2023 6:49 AM CDT [facility] eGFR >60 >=60 mL/min/1. 73m(2) 03/25/2023 6:49 AM CDT [facility] Comment:Calculation based on the Chronic Kidney Disease Epidemiology Collaboration (CKD-EPI) equation refit without adjustment for race. Total Protein 6.3 6.0 - 8.0 g/dL 03/25/2023 6:49 AM CDT [facility] Albumin 3.5 3.5 - 5.0 g/dL 03/25/2023 6:49 AM CDT [facility] Globulin 2.8 2.0 - 3.5 g/dL 03/25/2023 6:49 AM CDT [facility] Albumin/Globulin Ratio 1.3 1.0 - 2.0 03/25/2023 6:49 AM CDT [facility] Aspartate Aminotransferase (AST) 182(H) 5 - 41 U/L 03/25/2023 6:49 AM CDT [facility] Alanine Aminotransferase (ALT) 238(H) 8 - 45 U/L 03/25/2023 6:49 AM CDT [facility] Alkaline Phosphatase 62 50 - 136 U/L 03/25/2023 6:49 AM CDT [facility] Bilirubin, Total 1.4(H) 0.2 - 1.2 mg/dL 03/25/2023 6:49 AM CDT [facility] eCrCl (Rx) - Adults 165.4 mL/min 03/25 6:49 AM CDT [facility] Blood VENOUS BLOOD / Unknown Venipuncture / Unknown 03/25/2023 6:12 AM CDT 03/25/2023 6:19 AM CDT Baldemar Monson MD LAB CHEMISTRY ORDERA BLES [facility] [address] [place] [address], [place] [phone] * LEUKOCYTE COUNT/HEMOGLOBIN/PLATELET COUNT (03/25/2023 6:12 AM CDT) WBC Count, Corrected 6.8 3.9 - 11.9 10(3)/uL 03/25/2023 8:35 AM CDT [facility] Hemoglobin 15.2 13.1 - 17.1 g/dL 03/25/2023 8:35 AM CDT [facility] Platelets 191 179 - 450 10(3)/uL 03/25/2023 8:35 AM CDT [facility] Blood VENOUS BLOOD / Unknown Venipuncture / Unknown 03/25/2023 6:12 AM CDT 03/25/2023 6:19 AM CDT Baldemar Monson MD LAB HEMATOLOGY ORDER TASHA Performing Organization Address City/[facility]/ZIP Co de Phone Number [facility] [address] [place] [address], * CARDIAC RHYTHM STRIP (03/24/2023 8:00 PM CDT) Only the most recent of2 resultswithin the time period is included. 03/24/2023 8:00 PM CDT Narrative TERESA - 03/24/2023 8:00 PM CDT ID 0.17 QRS 0.10 QT 0.38 Baldemar Monson MD ECG Performing Organization Address City/[facility]/ZIP Co de Phone Number TERESA * (ABNORMAL) PLATELET COUNT (03/24/2023 1:05 PM CDT) Platelets 122(L) 179 - 450 10(3)/uL 03/24/2023 1:24 PM CDT [facility] Blood VENOUS BLOOD / Unknown Venipuncture / Unknown 03/24/2023 1:05 PM CDT 03/24/2023 1:15 PM CDT Baldemar Monson MD LAB HEMATOLOGY ORDER TASHA [facility] [address] [place] [address], [place] [phone] * HEPATITIS A AB, IGM (03/24/2023 1:05 PM CDT) Pathologist [facility] Hepatitis A Ab, IgM Negative Negative 03/25/2023 9:32 AM CDT [facility] Comment: Result does not exclude the possibility of exposure to hepatitis A virus. ??Antibody level during early infection stage may be below the limit of detection of the assay. Test Performed by: [address] [address] Tobacco Sprayer: Mason Ho M.D. Ph.D.; CLIA# [id number] Blood VENOUS BLOOD / Unknown Venipuncture / Unknown 03/24/2023 1:05 PM CDT 03/24/2023 1:14 PM CDT Baldemar Monson MD LAB SEROLOGY ORDERAB LES Performing Organization Address City/[facility]/ZIP Co de Phone Number [address] [address], [place] [phone] * HEPATITIS C AB (03/24/2023 1:05 PM CDT) [facility] HCV Ab Nonreactive Nonreactive 03/24/2023 2:09 PM CDT [facility] Comment:Interpretation: Anti bodies to HCV were not detected; does not exclude the possibility of exposure to HCV. Blood VENOUS BLOOD / Unknown Venipuncture / Unknown 03/24/2023 1:05 PM CDT 03/24/2023 1:14 PM CDT Baldemar Monson MD LAB SEROLOGY ORDERAB LES [facility] [address] [place] [address], [place] [phone] * HEPATITIS B CORE AB, IGM (03/24/2023 1:05 PM CDT) Pathologist [facility] Hepatitis B Core Ab, IgM Nonreactive Nonreactive, Equivocal 03/24/2023 2:09 PM CDT [facility] Blood VENOUS BLOOD / Unknown Venipuncture / Unknown 03/24/2023 1:05 PM CDT 03/24/2023 1:14 PM CDT Baldemar Monson MD LAB SEROLOGY ORDERAB LES Performing Organization Address City/[facility]/ZIP Co de Phone Number [facility] [address] [place] [address], [place] [phone] * HEPATITIS B SURFACE AG (03/24/2023 1:05 PM CDT) Pathologist [facility] Hepatitis B Surface Ag Nonreactive Nonreactive 03/24/2023 2:09 PM CDT [facility] Blood VENOUS BLOOD / Unknown Venipuncture / Unknown 03/24/2023 1:05 PM CDT 03/24/2023 1:14 PM CDT Baldemar Monson MD LAB SEROLOGY ORDERAB LES Performing Organization Address City/[facility] Co de Phone Number [facility] [address] [place] [address], [place] [phone] * (ABNORMAL) LIVER FUNCTION PANEL (03/24/2023 8:04 AM CDT) Only the most recent of2 resultswithin the time period is included. Pathologist [facility] Albumin 3.5 3.5 - 5.0 g/dL 03/24/2023 8:31 AM CDT [facility] Total Protein 6.1 6.0 - 8.0 g/dL 03/24/2023 8:31 AM CDT [facility] Globulin 2.6 2.0 - 3.5 g/dL 03/24/2023 8:31 AM CDT [facility] Albumin/Globulin Ratio 1.3 1.0 - 2.0 03/24/2023 8:31 AM CDT [facility] Aspartate Aminotransferase (AST) 324(H) 5 - 41 U/L 03/24/2023 8:31 AM [facility] Alanine Aminotransferase (ALT) 333(H) 8 - 45 U/L 03/24/2023 8:31 AM CDT [facility] Alkaline Phosphatase 65 50 - 136 U/L 03/24/2023 8:31 AM CDT [facility] Bilirubin, Total 1.5(H) 0.2 - 1.2 mg/dL 03/24/2023 8:31 AM CDT [facility] Bilirubin, Indirect 1.2(H) 0.0 - 0.7 mg/dL 03/24/2023 8:31 AM CDT [facility] Bilirubin, Direct 0.3 0.0 - 0.5 mg/dL 03/24/2023 8:31 AM CDT [facility] Blood VENOUS BLOOD / Unknown Venipuncture / Unknown 03/24/2023 8:04 AM CDT 03/24/2023 8:07 AM CDT Robles Mcmillan MD LAB CHEMISTRY OR DERABLES Performing Organization Address City/[facility]/ZIP Co de Phone Number [facility] [address] [place] [address], [place] [phone] * HEMOGLOBIN (03/24/2023 8:03 AM CDT) Hemoglobin 15.7 13.1 - 17.1 g/dL 03/24/2023 8:16 AM CDT [facility] Blood VENOUS BLOOD / Unknown Venipuncture / Unknown 03/24/2023 8:03 AM CDT 03/24/2023 8:07 AM CDT Robles Mcmillan MD LAB HEMATOLOGY O RDERABLES Performing Organization Address City/[facility]/ZIP Co de Phone Number [facility] [address] [place] [address], [place] [phone] * US ABD RUQ (03/24/2023 7:43 AM CDT) Anatomical Region Laterality Modality Abdomen Ultrasound 03/24/2023 7:56 AM CDT Narrative 03/24/2023 7:58 AM CDT EXAM: US ABD RUQ INDICATION: Elevated LFTs. COMPARISON: None available. FINDINGS: The gallbladder is mildly distended with wall measuring at the upper limits of normal; however, there is no pericholecystic fluid and per the living coach support sonographic Sanders sign was negative. ??The [...] Robles Mcmillan MD RAD ULTRASOUND * (ABNORMAL) URINALYSIS, MICROSCOPIC ONLY (03/24/2023 12:18 AM CDT) RBC, Urine 3-5(A) None Seen, 1-2 /HPF 03/24/2023 12:33 AM CDT [facility] WBC, Urine None Seen None Seen, 1-5 /HPF 03/24/2023 12:33 AM CDT [facility] Bacteria, Urine None Seen None Seen, Few /HPF 03/24/2023 12:33 AM CDT [facility] Squamous Epithelial Cells, Urine None Seen None Seen, 1-5 /HPF 03/24/2023 12:33 AM CDT [facility] Mucus, Urine Occasional (A) None Seen /HPF 03/24/2023 12:33 AM CDT [facility] Urine URINE SPECIMEN OBTAINED BY CLEAN CATCH PROCEDURE / Unknown Non-blood Collection / Unknown 03/24/2023 12:18 AM CDT 03/24/2023 12:21 AM CDT Corey Reza MD LAB URINE ORDERABLES Performing Organization Address City/State/[facility] Co de Phone Number [facility] [address] [place] [address], * (ABNORMAL) DRUGS OF ABUSE SCREEN, URINE (03/24/2023 12:18 AM CDT) Amphetamines, Qualitative, Urine Negative Negative 03/24/2023 12:35 AM CDT [facility] Barbiturates, Qualitative, Urine Negative Negative 03/24/2023 12:35 AM CDT [facility] Benzodiazepines, Urine Negative Negative 03/24/2023 12:35 AM CDT [facility] Buprenorphine, Urine Negative Negative 03/24/2023 12:35 AM CDT [facility] Cocaine, Urine Negative Negative 03/24/2023 12:35 AM CDT [facility] Methadone, Qualitative, Urine Negative Negative 03/24/2023 12:35 AM CDT [facility] Methamphetamine, Qualitative, Urine Negative Negative 03/24/2023 12:35 AM T [facility] Opiates, Urine Negative Negative 03/24/2023 12:35 AM [facility] Oxycodone, Urine Qualitative, Urine Negative Negative 03/24/2023 12:35 AM T [facility] Phencyclidine, Urine Negative Negative 03/24/2023 12:35 AM T [facility] Propoxyphene, Urine Qualitative, Urine Negative Negative 03/24/2023 12:35 AM T [facility] THC Cannabinoids, Urine Positive(A) Negative 03/24/2023 12:35 AM [facility] Comment:Presumptive Positive - This specimen was tested with a urine drug screen device and has a presumptive positive finding. Screening tests can yield false positive results due to their sensitivity and cross-reactivity with other drug classes. Please order follow-up confirmatory testing if needed. Tricyclic Antidepressants, Qualitative, Urine Negative Negative 03/24/2023 12:35 AM [facility] Urine SPOT URINE SPECIMEN / Unknown Non-blood Collection / Unknown 03/24/2023 12:18 AM CDT 03/24/2023 12:21 AM T [facility] - 03/24/2023 12:35 AM CDT Screening Thresholds [...] not approved for legal or forensic uses. Corey Reza MD LAB URINE ORDERABLES Performing Organization Address City/[facility]/ZIP Co de Phone Number [facility] [address] [place] [address], [place] [phone] * URINE CULTURE (03/24/2023 12:18 AM CDT) Culture No growth 03/25/2023 6:33 AM CDT [facility] Urine URINE SPECIMEN OBTAINED BY CLEAN CATCH PROCEDURE / Unknown Non-blood Collection / Unknown 03/24/2023 12:18 AM CDT 03/24/2023 12:21 AM CDT Corey Reza MD LAB MICROBIOLOGY ORD ERABLES Performing Organization Address [facility]/ZIP Co de Phone Number [facility] [address] [place] [address], [place] [phone] * (ABNORMAL) URINALYSIS WITH REFLEX TO MICROSCOPIC (03/24/2023 12:18 AM CDT) Color, Urine Light Yellow Yellow 03/24/2023 12:28 AM CDT [facility] Clarity, Urine Clear Clear 03/24/2023 12:28 AM CDT [facility] Specific [place], Urine 1.017 1.005 - 1.035 03/24/2023 12:28 AM CDT [facility] Glucose, Urine Negative Negative 03/24/2023 12:28 AM CDT [facility] Bilirubin, Urine Negative Negative 03/24/2023 12:28 AM CDT [facility] Ketone, Urine Trace(A) Negative 03/24/2023 12:28 AM CDT [facility] Blood, Urine 1+(A) Negative 03/24/2023 12:28 AM CDT [facility] pH, Urine 6.0 5.0 - 8.5 pH 03/24/2023 12:28 AM CDT [facility] Protein, Urine Trace(A) Negative 03/24/2023 12:28 AM CDT [facility] Urobilinogen, Urine <2.0 <2.0 EU/dL 03/24/2023 12:28 AM CDT [facility] Nitrite, Urine Negative Negative 03/24/2023 12:28 AM CDT [facility] Leukocyte Esterase, Urine Negative Negative 03/24/2023 12:28 AM CDT [facility] Urine URINE SPECIMEN OBTAINED BY CLEAN CATCH PROCEDURE / Unknown Non-blood Collection / Unknown 03/24/2023 12:18 AM CDT 03/24/2023 12:21 AM CDT Corey Reza MD LAB URINE ORDERABLES Performing Organization Address City/[facility]/ZIP Co de Phone Number [facility] [address] [place] [address], [place] [phone] * TROPONIN I (03/23/2023 10:17 PM CDT) Troponin I 0.01 <=0.04 ng/mL [employer] [id number] 03/24/2023 5:30 AM CDT [facility] Comment: 99% Reference Value: <0.04 ng/mL Assay Diagnostic Reference Range: <0.3 ng/mL ALL Troponin I values above the 99% reference value are reported as abnormal. Blood VENOUS BLOOD / Unknown Venipuncture / Unknown 03/23/2023 10:17 PM CDT 03/23/2023 10:22 PM CDT Robles Mcmillan MD LAB CHEMISTRY OR DERABLES Performing Organization Address City/[facility]/ZIP Co de Phone Number [facility] [address] [place] [address], [place] [phone] * LIPASE (03/23/2023 10:17 PM CDT) Lipase 69 8 - 78 U/L 03/24/2023 1:50 AM CDT [facility] Blood VENOUS BLOOD / Unknown Venipuncture / Unknown 03/23/2023 10:17 PM CDT 03/23/2023 10:22 PM CDT Robles Mcmillan MD LAB CHEMISTRY OR DERABLES [facility] [address] [place] [address], [place] [phone] * (ABNORMAL) COMPLETE BLOOD COUNT AND DIFFERENTIAL (03/23/2023 10:17 PM CDT) WBC Count, Corrected 7.8 3.9 - 11.9 10(3)/uL 03/23/2023 10:32 PM CDT [facility] RBC Count 5.86(H) 4.08 - 5.79 10(6)/uL 03/23/2023 10:32 PM CDT [facility] Hemoglobin 18.2(H) 13.1 - 17.1 g/dL 03/23/2023 10:32 PM CDT [facility] Hematocrit 51.5(H) 38.7 - 51.4 % 03/23/2023 10:32 PM CDT [facility] MCV 87.9 82.9 - 100.6 fL 03/23/2023 10:32 PM CDT [facility] MCH 31.2 27.6 - 33.2 pg 03/23/2023 10:32 PM CDT [facility] MCHC 35.4 32.0 - 36.0 g/dL 03/23/2023 10:32 PM CDT [facility] RDW 13.6 10.0 - 16.2 % 03/23/2023 10:32 PM CDT [facility] Platelets 168(L) 179 - 450 10(3)/uL 03/23/2023 10:32 PM CDT [facility] MPV 7.8 7.4 - 10.4 fL 03/23/2023 10:32 PM CDT [facility] % Neutrophils 54.0 43.0 - 80.0 % 03/23/2023 10:32 PM CDT [facility] % Lymphocytes 40.7 16.0 - 49.0 % 03/23/2023 10:32 PM CDT [facility] % Monocytes 4.4 0.0 - 10.0 % 03/23/2023 10:32 PM CDT [facility] % Eosinophils 0.3 0.0 - 7.0 % 03/23/2023 10:32 PM CDT [facility] % Basophils 0.6 0.0 - 2.0 % 03/23/2023 10:32 PM CDT [facility] Abs Neutrophils 4.2 1.6 - 8.1 10(3)/uL 03/23/2023 10:32 PM CDT [facility] Abs Lymphocytes 3.2 0.9 - 3.5 10(3)/uL 03/23/2023 10:32 PM CDT [facility] Abs Monocytes 0.3 0.0 - 1.1 10(3)/uL 03/23/2023 10:32 PM CDT [facility] Abs Eosinophils 0.0 0.0 - 0.8 10(3)/uL 03/23/2023 10:32 PM CDT [facility] Abs Basophils 0.0 0.0 - 0.2 10(3)/uL 03/23/2023 10:32 PM CDT [facility] Blood VENOUS BLOOD / Unknown Venipuncture / Unknown 03/23/2023 10:17 PM CDT 03/23/2023 10:22 PM CDT Corey Reza MD LAB HEMATOLOGY ORDER TASHA [facility] [address] [place] [address], [place] [phone] * PROTHROMBIN TIME AND INR (03/23/2023 10:17 PM CDT) Prothrombin Time 12.0 9.4 - 12.5 sec 03/23/2023 10:30 PM CDT [facility] INR 1.0 0.9 - 1.1 INR 03/23/2023 10:30 PM CDT [facility] Comment: Common Recommended Therapeutic Ranges: INR Standard: ??2.0-3.0 INR High Intensity: ??2.5-3.5 Blood VENOUS BLOOD / Unknown Venipuncture / Unknown 03/23/2023 10:17 PM CDT 03/23/2023 10:22 PM CDT Corey Reza MD LAB HEMATOLOGY ORDER TASHA [facility] [address] [place] [address], [place] [phone] * (ABNORMAL) ETHANOL (03/23/2023 10:17 PM CDT) Pathologist [facility] Ethanol 388(H) <=10 mg/dL 03/23/2023 10:45 PM CDT [facility] Comment:This test was perfor med to aid in medical decision making. It is not approved for legal or forensic uses. Ethanol 0.39 % 03/23/2023 10:45 PM CDT [facility] Blood VENOUS BLOOD / Unknown Venipuncture / Unknown 03/23/2023 10:17 PM CDT 03/23/2023 10:22 PM CDT Narrative [facility] - 03/23/2023 10:45 PM CDT Increased levels of Lactate and LDH may cause elevated Ethyl Alcohol results. Corey Reza MD LAB CHEMISTRY ORDERA BLES [facility] [address] [place] [address], [place] [phone] * GOLD/SST TUBE (03/23/2023 10:17 PM CDT) Blood VENOUS BLOOD / Unknown Venipuncture / Unknown 03/23/2023 10:17 PM CDT 03/23/2023 10:22 PM CDT Juan Ramon Gan DO LAB CHEMISTR Y ORDERABLES Performing Organization Address [facility] Co de Phone Number [facility] [address] [place] [address], * LIGHT GREEN TUBE (03/23/2023 10:17 PM CDT) Blood VENOUS BLOOD / Unknown Venipuncture / Unknown 03/23/2023 10:17 PM CDT 03/23/2023 10:22 PM CDT Juan Ramon Gan DO LAB CHEMISTR Y ORDERABLES Performing Organization Address [facility] Co de Phone Number [facility] [address] [place] [address], * LIGHT BLUE TUBE (03/23/2023 10:17 PM CDT) Blood VENOUS BLOOD / Unknown Venipuncture / Unknown 03/23/2023 10:17 PM CDT 03/23/2023 10:22 PM CDT Juan Ramon Gan DO LAB CHEMISTR Y ORDERABLES Performing Organization Address [facility] Co de Phone Number [facility] [address] [place] [address], * ECG (03/23/2023 8:42 PM CDT) 03/23/2023 [...] consider anterior injury or acute infarct ACUTE DC / STEMI Abnormal ECG No previous ECGs available Referred By: ??YVONNE ? Electronically Signed By:BETITO HOFFMAN M.D. (EP Juan Ramon Blancas Yvonne DO ECG MUSE documented in this encounter Visit Diagnoses Diagnosis Alcohol withdrawal syndrome without complication (HCC)- Primary Suicidal ideation Alcohol withdrawal syndrome with complication (HCC) Hematemesis with nausea Elevated LFTs Other abnormal blood chemistry Alcohol withdrawal syndrome without complication (HCC) documented in this encounter Admitting Diagnoses Diagnosis Alcohol withdrawal syndrome without complication (HCC) documented in this encounter Administered Medications Inactive Administered Medications - up to 3 most recent administrations Medication Order MAR Action Action Date Dose Rate Site dextrose 5% and sodium chloride 0.9% (D5NS) IV soln 1,000 mL 1,000 mL, at 1,000 mL/hr, IV infusion, Once ED, 1 dose, On Wed03/23/23 at 2315 New Bag/Start Infusion 03/24/2023 12:44 AM CDT 1,000 mL 1000 mL/hr ethyl alcohoL (NOZIN POPSWAB) 62 % nasal swab 1 Swab 1 Swab, each nostril, Every 12 hours Scheduled, First dose on Wed03/24/23 at 0515, Until Discontinued Given 03/26/2023 8:06 AM CDT 1 Swab Given 03/25/2023 8:22 PM CDT 1 Swab Given 03/25/2023 7:31 AM CDT 1 Swab folic acid (FOLVITE) tablet 1 mg 1 mg, oral, Daily in morning, First dose on Wed03/24/23 at 0800, Until Discontinued Given 03/26/2023 8:07 AM CDT 1 mg Given 03/25/2023 7:31 AM CDT 1 mg Given 03/24/2023 9:57 AM CDT 1 mg folic acid 1 mg in dextrose 5 % in water (D5W) 50 mL IV piggyback 1 mg, at 100 mL/hr, IV infusion, Once, 1 dose, On Wed03/23/23 at 2145, Contact pharmacy if parenteral dose desired. New Bag/Start Infusion 03/23/2023 11:51 PM CDT 1 mg 100 mL/hr folic acid 1 mg in dextrose 5 % in water (D5W) 50 mL IV piggyback 1 mg, at 100 mL/hr, IV infusion, Daily in morning, First dose on Wed03/24/23 at 0800, Until Discontinued, RN to contact pharmacy if parenteral dose desired. lactated ringers (LR) IV soln at 100 mL/hr, IV infusion, Continuous, Starting on Wed03/24/23 at 1300, Until Wed03/25/23 at 0959 New Bag/Start Infusion 03/24/2023 11:27 PM CDT 100 mL/hr New Bag/Start Infusion 03/24/2023 2:00 PM CDT 1 00 mL/hr LORazepam (ATIVAN) 2 mg/mL injection VIAL 1-2 mg 1-2 mg, intravenous, Every 5 min PRN, Starting on Wed03/24/23 at 0131, Until Wed03/26/23 at 1625, seizure, Dilute with equal volumes of NS or D5W for IV use, IV administration over one minute. magnesium sulfate in SWFI 2 gram/50 mL (4 %) IV piggyback 2 g 2 g, at 50 mL/hr, IV infusion, Once, 1 dose, On Wed03/24/23 at 1015 New Bag/Start Infusion 03/24/2023 12:02 PM CDT 2 g 50 mL/hr melatonin tablet 3-6 mg 3-6 mg, oral, Nightly PRN, Starting on Wed03/24/23 at 0453, Until Wed03/26/23 at 1625, sleep, Give lowest effective dose. Given 03/25/2023 8:17 PM CDT 6 mg multivitamin with folic acid 400 mcg tablet 1 Tablet 1 Tablet, oral, Once, 1 dose, On Wed03/23/23 at 2145 Given 03/24/2023 12:20 AM CDT 1 Tablet multivitamin with folic acid 400 mcg tablet 1 Tablet 1 Tablet, oral, Daily, First dose on Wed03/24/23 at 0800, Until Discontinued Given 03/26/2023 8:07 AM CDT 1 Tablet Given 03/25/2023 7:31 AM CDT 1 Tablet Given 03/24/2023 9:57 AM CDT 1 Tablet nicotine polacrilex (NICORETTE) 4 mg gum 4-8 mg 4-8 mg, oral, Every 1 hour PRN, Starting on Wed03/25/23 at 1402, Until Wed03/26/23 at 1625, nicotine withdrawal, nicotine withdrawal, Begin with lowest dose, increase if not effective. Slowly and intermittently chewed and parked over 30 minutes. Not to exceed 24 pieces (96 mg) in 24 hr period. Given 03/26/2023 11:03 AM CDT 8 mg Given 03/26/2023 8:08 AM CDT 8 mg Given 03/25/2023 8:21 PM CDT 8 mg ondansetron (ZOFRAN ODT) tbdl 4 mg 4 mg, oral, Once ED, 1 dose, On Wed03/23/23 at 2130, Zofran ODT (dissolve tablet) is for patients GREATER than or EQUAL to 13 kg (minimum dose is 2 mg or 0.5 tablet). If the patient is LESS than 13 kg, please use either the IV or the liquid formulations. Do not attempt to push tablets through the foil backing. With dry hands PEEL BACK the foil backing of 1 blister and GENTLY remove the tablet. IMMEDIATELY place the tablet on top of the tongue where it will dissolve rapidly, then swallow with saliva. Administration with liquid is not necessary. Given 03/23/2023 10:49 PM CDT 4 mg pantoprazole (PROTONIX) EC tablet 40 mg 40 mg, oral, 2 times daily before meals, First dose (after last modification) on Wed03/25/23 at 1630, Until Discontinued Given 03/26/2023 6:27 AM CDT 40 mg Given 03/25/2023 4:29 PM CDT 40 mg pantoprazole (PROTONIX) injectable 40 mg 40 mg, intravenous, Once ED, 1 dose, On Wed03/23/23 at 2200, Reconstitute each 40 mg vial with 10 mL normal saline (final concentration 4 mg/mL) and administer over at least 2 minutes. Given 03/23/2023 10:49 PM CDT 40 mg pantoprazole (PROTONIX) injectable 40 mg 40 mg, intravenous, Every 12 hours, First dose on Wed03/24/23 at 1200, Until Discontinued, Reconstitute each 40 mg vial with 10 mL normal saline (final concentration 4 mg/mL) and administer over at least 2 minutes. Given 03/24/2023 11:23 PM CDT 40 mg Given 03/24/2023 12:00 PM CDT 40 mg PHENobarbital 65 mg/mL injection 32.5 mg 32.5 mg, intravenous, Every 3 hours PRN, Starting on Wed03/24/23 at 0142, Until Wed03/24/23 at 1606, anxiety, breakthrough WD symptoms Given 03/24/2023 3:59 PM CDT 32.5 mg Given 03/24/2023 12:00 PM CDT 32.5 mg Given 03/24/2023 7:57 AM CDT 32.5 mg PHENobarbital 65 mg/mL injection 32.5 mg 32.5 mg, intravenous, Every 6 hours, 8 doses, First dose on Wed03/24/23 at 0200, Last dose on Wed03/25/23 at 1999 Given 03/24/2023 2:04 PM CDT 32.5 mg Given 03/24/2023 9:57 AM CDT 32.5 mg Given 03/24/2023 2:00 AM CDT 32.5 mg PHENobarbital 65 mg/mL injection 65 mg 65 mg, intravenous, Every 6 hours, 5 doses, First dose (after last modification) on Wed03/24/23 at 2000, Last dose on Wed03/25/23 at 2100 Given 03/25/2023 8:17 PM CDT 65 mg Given 03/25/2023 2:53 PM CDT 65 mg Given 03/25/2023 9:20 AM CDT 65 mg PHENobarbital 65 mg/mL injection 65 mg 65 mg, intravenous, Every 3 hours PRN, Starting on Wed03/24/23 at 1900, Until Wed03/26/23 at 0359, anxiety, breakthrough WD symptoms Given 03/25/2023 11:35 PM CDT 65 mg Given 03/25/2023 6:33 PM CDT 65 mg Given 03/25/2023 1:17 PM CDT 65 mg PHENobarbitaL tablet 64.8 mg 64.8 mg, oral, Every 8 hours, 6 doses, First dose (after last modification) on Wed03/26/23 at 0300, Last dose on Wed03/27/23 at 1900 Given 03/26/2023 10:48 AM CDT 64.8 mg Given 03/26/2023 3:09 AM CDT 64.8 mg PHENobarbitaL tablet 64.8 mg 64.8 mg, oral, Every 12 hours, 4 doses, First dose (after last modification) on 03/28/23 at 0300, Last dose on Wed03/29/23 at 1500 PHENobarbitaL tablet 64.8 mg 64.8 mg, oral, Nightly, 2 doses, First dose (after last modification) on Wed03/30/23 at 0300, Last dose on Wed03/30/23 at 2100 potassium chloride (KDUR) tablet 40 mEq 40 mEq, oral, Once, 1 dose, On Wed03/24/23 at 1015, CHECK RECENT SERUM K PRIOR TO ADMINISTRATION. DO NOT CRUSH. Not to be administered via feeding tube. Given 03/24/2023 12:00 PM CDT 40 mEq prochlorperazine edisylate (COMPAZINE) injection 5 mg 5 mg, intravenous, Every 6 hours PRN, Starting on Wed03/24/23 at 0135, Until Wed03/26/23 at 1625, nausea and/or vomiting, Max dose of 40 mg per day. Given 03/25/2023 7:42 AM CDT 5 mg Given 03/24/2023 7:47 PM CDT 5 mg Given 03/24/2023 8:39 AM CDT 5 mg sodium bicarbonate 75 mEq in sodium chloride 0.45% (1/2NS) 1,000 mL IV infusion IV infusion, Continuous, Starting on Wed03/24/23 at 0145, Until Wed03/24/23 at 1257 New Bag/Start Infusion 03/24/2023 12:01 PM CDT 125 mL/hr New Bag/Start Infusion 03/24/2023 1:52 AM CDT 1 25 mL/hr thiamine (VIT B1) tablet 100 mg 100 mg, oral, Daily in morning, First dose on Wed03/24/23 at 0800, Until Discontinued Given 03/26/2023 8:07 AM CDT 100 mg Given 03/25/2023 7:31 AM CDT 100 mg Given 03/24/2023 7:58 AM CDT 100 mg thiamine 100 mg in dextrose 5 % in water (D5W) 50 mL IV piggyback 100 mg, at 100 mL/hr, IV infusion, Once, 1 dose, On Wed03/23/23 at 2145, If unable to take oral, contact pharmacy for dose. New Bag/Start Infusion 03/23/2023 11:02 PM CDT 100 mg 100 mL/hr thiamine 100 mg in dextrose 5 % in water (D5W) 50 mL IV piggyback 100 mg, at 100 mL/hr, IV infusion, Daily in morning, First dose on Wed03/24/23 at 0800, Until Discontinued, RN to contact pharmacy if parenteral dose required. thiamine 100 mg/mL injection 100 mg 100 mg, intramuscular, Daily in morning, First dose on Wed03/24/23 at 0800, Until Discontinued, If Unable to take oral and no IV access traZODone (DESYREL) tablet 100 mg 100 mg, oral, Nightly PRN, Starting on Wed03/24/23 at 1052, Until Wed03/26/23 at 1625, insomnia Given 03/25/2023 8:17 PM CDT 100 mg documented in this encounter Active and Recently Administered Medications Times are shown in CDT. Scheduled Medication Order 03/24/2023 03/25/2023 03/26/2023 dextrose 5% and sodium chloride 0.9% (D5NS) IV soln 1,000 mL (COMPLETED) 1,000 mL, at 1,000 mL/hr, IV infusion, Once ED, 1 dose, On Wed03/23/23 at 2315 0044 (New Bag/Start Infusion - Provider: Ca Tanner RN) ethyl alcohoL (NOZIN POPSWAB) 62 % nasal swab 1 Swab 1 Swab, each nostril, Every 12 hours Scheduled, First dose on Wed03/24/23 at 0515, Until Discontinued 1001 (Given - Provider: Enma Boswell RN)1947 (Given - Provider: Ruth Hsieh RN) 0731 (Given - Provider: Mar Cortes, GODWIN)2021 (Given - Provider: Charles Curry RN) 0806 (Given - Provider: Oma De León, GODWIN) folic acid (FOLVITE) tablet 1 mg(Linked Group 1) 1 mg, oral, Daily in morning, First dose on Wed03/24/23 at 0800, Until Discontinued 0957 (Given - Provider: Enma Boswell RN) 0731 (Given - Provider: Mar Cortes RN) 0807 (Given - Provider: Oma De León, GODWIN) folic acid 1 mg in dextrose 5 % in water (D5W) 50 mL IV piggyback(Linked Group 1) 1 mg, at 100 mL/hr, IV infusion, Daily in morning, First dose on Wed03/24/23 at 0800, Until Discontinued, RN to contact pharmacy if parenteral dose desired. 0957 (See Alternative - Provider: Enma Boswell RN) 0731 (See Alternative - Provider: Mar Cortes RN) 0807 (See Alternative - Provider: Oma De León RN) magnesium sulfate in SWFI 2 gram/50 mL (4 %) IV piggyback 2 g (COMPLETED) 2 g, at 50 mL/hr, IV infusion, Once, 1 dose, On Wed03/24/23 at 1015 1202 (New Bag/Start Infusion - Provider: Enma Boswell RN)1336 (Stopped - Provider: Luigi Burden LPN) multivitamin with folic acid 400 mcg tablet 1 Tablet (COMPLETED) 1 Tablet, oral, Once, 1 dose, On Wed03/23/23 at 2145 0020 (Given - Provider: Ca Tanner RN) multivitamin with folic acid 400 mcg tablet 1 Tablet 1 Tablet, oral, Daily, First dose on Wed03/24/23 at 0800, Until Discontinued 09 (Given - Provider: Enma Boswell RN) 0731 (Given - Provider: Mar Cortes RN) 0807 (Given - Provider: Oma De León RN) pantoprazole (PROTONIX) EC tablet 40 mg 40 mg, oral, 2 times daily before meals, First dose (after last modification) on Wed03/25/23 at 1630, Until Discontinued 1629 (Given - Provider: Enma Boswell RN) 0627 (Given - Provider: Charles Curry, GODWIN) pantoprazole (PROTONIX) injectable 40 mg (CANCELED) 40 mg, intravenous, Every 12 hours, First dose on Wed03/24/23 at 1200, Until Discontinued, Reconstitute each 40 mg vial with 10 mL normal saline (final concentration 4 mg/mL) and administer over at least 2 minutes. 1200 (Given - Provider: Enma Boswell RN)2323 (Given - Provider: Ruth Hsieh RN) PHENobarbital 65 mg/mL injection 32.5 mg (CANCELED) 32.5 mg, intravenous, Every 6 hours, 8 doses, First dose on Wed03/24/23 at 0200, Last dose on Wed03/25/23 at 2000 0200 (Given - Provider: Loretta Wing RN)0957 (Given - Provider: Enma Boswell, RN)1404 (Given - Provider: Enma Boswell, GODWIN) PHENobarbital 65 mg/mL injection 65 mg (COMPLETED)(Linked Group 2) 65 mg, intravenous, Every 6 hours, 5 doses, First dose (after last modification) on Wed03/24/23 at 2000, Last dose on Wed03/25/23 at 2100 1945 (Given - Provider: Ruth Hsieh RN) 0414 (Given - Provider: Ruth Hsieh RN)0920 (Given - Provider: Mar Cortes RN)1453 (Given - Provider: Mar Cortes RN)2017 (Given - Provider: Charles Curry RN) PHENobarbitaL tablet 64.8 mg(Linked Group 2) 64.8 mg, oral, Every 8 hours, 6 doses, First dose (after last modification) on Wed03/26/23 at 0300, Last dose on Wed03/27/23 at 1900 0309 (Given - Provider: Charles Curry RN)1048 (Given - Provider: Oma De León RN) PHENobarbitaL tablet 64.8 mg(Linked Group 2) 64.8 mg, oral, Every 12 hours, 4 doses, First dose (after last modification) on Wed03/28/23 at 0300, Last dose on Wed03/29/23 at 1500 PHENobarbitaL tablet 64.8 mg(Linked Group 2) 64.8 mg, oral, Nightly, 2 doses, First dose (after last modification) on Wed03/30/23 at 0300, Last dose on Wed03/30/23 at 2100 potassium chloride (KDUR) tablet 40 mEq (COMPLETED) 40 mEq, oral, Once, 1 dose, On Wed03/24/23 at 1015, CHECK RECENT SERUM K PRIOR TO ADMINISTRATION. DO NOT CRUSH. Not to be administered via feeding tube. 1200 (Given - Provider: Enma Boswell RN) thiamine (VIT B1) tablet 100 mg(Linked Group 3) 100 mg, oral, Daily in morning, First dose on Wed03/24/23 at 0800, Until Discontinued 0758 (Given - Provider: Enma Boswell RN) 0731 (Given - Provider: Mar Cortes, GODWIN) 0807 (Given - Provider: Oma De León, GODWIN) thiamine 100 mg in dextrose 5 % in water (D5W) 50 mL IV piggyback(Linked Group 3) 100 mg, at 100 mL/hr, IV infusion, Daily in morning, First dose on Wed03/24/23 at 0800, Until Discontinued, RN to contact pharmacy if parenteral dose required. 0758 (See Alternative - Provider: Enma Boswell RN) 0731 (See Alternative - Provider: Mar Cortes RN) 0807 (See Alternative - Provider: Oma De León, GODWIN) thiamine 100 mg/mL injection 100 mg(Linked Group 3) 100 mg, intramuscular, Daily in morning, First dose on Wed03/24/23 at 0800, Until Discontinued, If Unable to take oral and no IV access 0758 (See Alternative - Provider: Enma Boswell RN) 0731 (See Alternative - Provider: Mar Cortes RN) 0807 (See Alternative - Provider: Oma De León, GODWIN) Continuous Medication Order 03/24/2023 03/25/2023 03/26/2023 lactated ringers (LR) IV soln () at 100 mL/hr, IV infusion, Continuous, Starting on Wed03/24/23 at 1300, Until Maci 03/25/23 at 0959 1400 (New Bag/Start Infusion - Provider: Enma Boswell RN)2327 (New Bag/Start Infusion - Provider: Ruth Hsieh RN) sodium bicarbonate 75 mEq in sodium chloride 0.45% (1/2NS) 1,000 mL IV infusion (CANCELED) IV infusion, Continuous, Starting on Wed03/24/23 at 0145, Until Wed03/24/23 at 1257 0152 (New Bag/Start Infusion - Provider: Loretta Wing RN)1201 (New Bag/Start Infusion - Provider: Enma Boswell RN)1353 (Stopped - Provider: Enma Boswell, RN) PRN Medication Order 03/24/2023 03/25/2023 03/26/2023 LORazepam (ATIVAN) 2 mg/mL injection VIAL 1-2 mg 1-2 mg, intravenous, Every 5 min PRN, Starting on 03/24/23 at 0131, Until Wed03/26/23 at 1625, seizure, Dilute with equal volumes of NS or D5W for IV use, IV administration over one minute. melatonin tablet 3-6 mg 3-6 mg, oral, Nightly PRN, Starting on Wed03/24/23 at 0453, Until Wed03/26/23 at 1625, sleep, Give lowest effective dose. 2017 (Given - Provider: Charles Curry RN) nicotine polacrilex (NICORETTE) 4 mg gum 4-8 mg 4-8 mg, oral, Every 1 hour PRN, Starting on Maci 03/25/23 at 1402, Until Wed03/26/23 at 1625, nicotine withdrawal, nicotine withdrawal, Begin with lowest dose, increase if not effective. Slowly and intermittently chewed and parked over 30 minutes. Not to exceed 24 pieces (96 mg) in 24 hr period. 1453 (Given - Provider: Mar Cortes RN)1629 (Given - Provider: Enma Boswell RN)1832 (Given - Provider: Mar Cortes RN)2021 (Given - Provider: Charles Curry RN) 0808 (Given - Provider: Oma De León, GODWIN)1103 (Given - Provider: Oma De León RN) PHENobarbital 65 mg/mL injection 32.5 mg (CANCELED) 32.5 mg, intravenous, Every 3 hours PRN, Starting on Wed03/24/23 at 0142, Until Wed03/24/23 at 1606, anxiety, breakthrough WD symptoms 0449 (Given - Provider: Loretta Wing RN)0757 (Given - Provider: Enma Boswell, GODWIN)1200 (Given - Provider: Enma Boswell, GODWIN)1559 (Given - Provider: Enma Boswell, GODWIN) PHENobarbital 65 mg/mL injection 65 mg () 65 mg, intravenous, Every 3 hours PRN, Starting on Wed03/24/23 at 1900, Until Wed03/26/23 at 0359, anxiety, breakthrough WD symptoms 1838 (Given - Provider: Mar Cortes, GODWIN)2323 (Given - Provider: Ruth Hsieh, GODWIN) 0731 (Given - Provider: Mar Cortes RN)1027 (Given - Provider: Mar Cortes RN)1317 (Given - Provider: Mar Cortes RN)1833 (Given - Provider: Mar Cortes RN)2335 (Given - Provider: Charles Curry, GODWIN) prochlorperazine edisylate (COMPAZINE) injection 5 mg 5 mg, intravenous, Every 6 hours PRN, Starting on Wed03/24/23 at 0135, Until Wed03/26/23 at 1625, nausea and/or vomiting, Max dose of 40 mg per day. 0200 (Given - Provider: Loretta Wing RN)0839 (Given - Provider: Luigi Burden LPN)1947 (Given - Provider: Ruth Hsieh RN) 0742 (Given - Provider: Mar Cortes RN) traZODone (DESYREL) tablet 100 mg 100 mg, oral, Nightly PRN, Starting on Wed03/24/23 at 1052, Until Wed03/26/23 at 1625, insomnia 2017 (Given - Provider: Charles Curry RN) Linked Groups Order Group 1: folic acid (FOLVITE) tablet 1 mgJump to med 1 mg, oral, Daily in morning, First dose on Wed03/24/23 at 0800, Until Discontinued Or folic acid 1 mg in dextrose 5 % in water (D5W) 50 mL IV piggybackJump to med 1 mg, at 100 mL/hr, IV infusion, Daily in morning, First dose on Wed03/24/23 at 0800, Until Discontinued
RN to contact pharmacy if parenteral dose desired.
Group 2: PHENobarbital 65 mg/mL injection 65 mg (COMPLETED)Jump to med 65 mg, intravenous, Every 6 hours, 5 doses, First dose (after last modification) on Wed03/24/23 at 2000, Last dose on Wed03/25/23 at 2100 Followed by PHENobarbitaL tablet 64.8 mgJump to med 64.8 mg, oral, Every 8 hours, 6 doses, First dose (after last modification) on Wed03/26/23 at 0300, Last dose on Wed03/27/23 at 1900 Followed by PHENobarbitaL tablet 64.8 mgJump to med 64.8 mg, oral, Every 12 hours, 4 doses, First dose (after last modification) on Wed03/28/23 at 0300, Last dose on Wed03/29/23 at 1500 Followed by PHENobarbitaL tablet 64.8 mgJump to med 64.8 mg, oral, Nightly, 2 doses, First dose (after last modification) on Wed03/30/23 at 0300, Last dose on Wed03/30/23 at 2100 Group 3: thiamine (VIT B1) tablet 100 mgJump to med 100 mg, oral, Daily in morning, First dose on Wed03/24/23 at 0800, Until Discontinued Or thiamine 100 mg/mL injection 100 mgJump to med 100 mg, intramuscular, Daily in morning, First dose on Wed03/24/23 at 0800, Until Discontinued
If Unable to take oral and no IV access
Or thiamine 100 mg in dextrose 5 % in water (D5W) 50 mL IV piggybackJump to med 100 mg, at 100 mL/hr, IV infusion, Daily in morning, First dose on Wed03/24/23 at 0800, Until Discontinued
RN to contact pharmacy if parenteral dose required.
documented in this encounter Additional Health Concerns Infection Onset Date Last Indicated Resolved Time Undiagnosed Unformed Stools Rule-Out 03/24/202303/0703/25/2023 9:35 AM CDT documented as of this encounter Care Teams Almond Blancher Hand Relationship Specialty Start Date End Date Provider, No Primary . BOB SMITH [id number] PCP - General 03/23/23 documented as of this encounter Additional Source Comments PLEASE NOTE: Replies to this message will not be received.[facility]
--- OUTSIDE RECORDS SUMMARY | 2023-06-15 21:57 | XMS_ITS | Encounter Summary ---
Author Name Unknown Organization [facility] Address [address] [place] [address] Care Team Providers Care Hockey Instructor Name Role Phone Feliciano Dexter MD Primary Care Provider [phone] Reason for Visit * Reason Comments Refill Encounter Details Date Type Department Care Team Description 09/24/2022 Refill [facility] Medicine [address] [place] [address] [phone] Feliciano Dexter MD [address] [place] [address] [phone] Refill Social History Tobacco Use Types Packs/Day Years Used Date Smoking Tobacco: Former Cigarettes Q uit: 04/07/2019 Smokeless Tobacco: Former Comments:down to 3-4 cigaret melanie a day Alcohol Use Standard Drinks/Week Comments No 0 (1 standard drink = 0.6 oz pur e alcohol) PHQ-2 Answer Date Recorded PHQ-2 Score 0 10/06/2021 Sex and Gender Information Value Date Recorded Sex Assigned at Not on file Gender Identity Not on file Sexual Orientation Not on file documented as of this encounter Nursing Notes * Yamilet Alexis RN - 09/24/2022 9:02 AM CDT Patient calling to check on adderall script, find out if he has another at [facility], as [facility]. Advised no scripts pending currently, can request refill for the end of this month - pt says that is fine as he has at least a week's left of meds. He will book med check with pcp next month. Further Assistance Needed on Refill from Clinician RN reviewed. Medication not listed on standing order. 10/06/21 well visit with pcp 04/23/22 video with pcp partner for ADHD check Last refill #60 on 09/04/22 Pended refill for 10/04 Review pended order for accuracy and sign if appropriate and Close encounter Requested Prescriptions Pending Prescriptions Disp Refills amphetamine-dextroamphetamine XR (ADDERALL XR) 20 MG 24 hour release capsule 60 Capsule 0 Sig: Take 2 Capsules (40 mg) by mouth daily. documented in this encounter Plan of Treatment Not on file documented as of this encounter Visit Diagnoses Diagnosis ADHD (attention deficit hyperactivity disorder), inattentive type (HRC) Attention deficit disorder with hyperactivity documented in this encounter Care Teams Hockey Instructor Relationship Specialty Start [place] [address] [address] [place] [address] PCP - General Family Practice 02/22/17 documented as of this encounter
--- OUTSIDE RECORDS SUMMARY | 2023-06-15 21:57 | XMS_ITS | Encounter Summary ---
Author Name Unknown Organization [facility] Address [address] [place] [address] Care Team Providers Care Layout Former Name Role Phone Feliciano Dexter MD Primary Care Provider [phone] Reason for Visit * Reason Onset Date Comments Refill 10/26/2022 Encounter Details Date Type Department Care Team Description 10/26/[address] [phone] Feliciano Dexter MD [address] [place] [phone] Refill Social History Tobacco Use Types Packs/Day [...] as of this encounter Nursing Notes * Tanya Duran RN - 10/26/2022 9:31 AM CDT Further Assistance Needed on Refill from Clinician RN reviewed. Patient due for Qualifying visit. Has upcoming visit Requesting to have refill until appointment. Future Appointments Provider Department Center 12/09/2022 10:00 AM Feliciano Dexter MD [facility] Medicine [facility] [place] Review pended order for accuracy and sign if appropriate, Route to care team, and Patient is expecting call back Requested Prescriptions Pending Prescriptions Disp Refills amphetamine-dextroamphetamine [...] hyperactivity documented in this encounter Care Teams Layout Former Relationship Specialty [place] [address] [address] [place] [address] PCP - General Family Practice 02/22/17 documented as of this encounter
--- OUTSIDE RECORDS SUMMARY | 2023-06-15 21:57 | XMS_ITS | Clinical Summary ---
Author Name Unknown Organization [facility] Address [address] [address] Care Team Providers Care Pot Liner Name Role Phone Feliciano Dexter MD Primary Care Provider [phone] Source Comments You are receiving this document as you are listed as the primary care provider,follow-up provider, or the patient has been referred to you for consultation.This is in compliance with the Medicare and[facility] EHR Incentive Program,which states Providers who transition their patient to another setting of careor provider of care or refers their patient to another provider of care shouldprovide summary care record for each transition of care or referral. [facility] Allergies No known active allergies Medications Medication Sig Dispensed Refills Start Date End Date Status amphetamine-dextroamp hetamine XR (ADDERALL XR) 20 MG 24 hour release capsuleIndications:AD HD (attention deficit hyperactivity disorder), inattentive type (HRC) Take 2 Capsules (40 mg) by mouth daily. Do not start before October 30, 2022. 60 Capsule 0 10/30/2022 Active Active Problems Problem Noted Date Diagnosed Date ADHD (attention deficit hype ractivity disorder), inattentive type 07/08/2021 Controlled substance agreement signed 06/19/2014 Overview: Diagnosis: ADD Medication:Adderall XR 25mg and 10mg AM, #30 per month Controlled Substance Agreement reviewed and signed: yes Date agreement signed: 02/23/2017 Refill plan: #30 each per month, follow up every 1-2 months Clinician: Feliciano Dexter MD Resolved Problems Problem Noted Date Diagnosed Date Resolved Date Encounter for tobacco use ce ssation counseling 03/22/2017 06/22/2019 ADD (attention deficit disor jenny) without hyperactivity 12/13/2013 07/08/2021 Immunizations Name Administration Dates Next Due Fluzone Qiv Multidose Vial 0.25 (6-35 Mos) 02/28 [id number] 04/12/2013 Influenza (Flucelvax), Preserv Free QIV 03/17/20 18 Influenza (Fluzone 0.25, 6-35 mos) 01/23/2017 Influenza IIV4 (Quadrivalent) 0.5mL ([id number]) 08/2020,02/02/2020,04/13/2014 Moderna Monovalent 12+ 09/26/2020,08/28/2020 Tdap 02/23/2017 Family History Medical History Relation Name Comments Diabetes, Type II Father Cancer, Colon Negative Family History Cancer, Prostate Negative Family History Cataract Negative Family History Glaucoma Negative Family History Macular Degeneration Negative Family History Relation Name Status Comments Father Alive Mother Alive Has ADD Social History Tobacco Use Types Packs/Day Years [...] Sign Reading Time Taken Comments Blood Pressure 118/77 10/06/2021 12:21 PM CDT Pulse 75 10/06/2021 12:21 PM CDT Temperature 36.8 ??C (98.2 ??F) 07/08/2021 8 :30 AM SAGGER PREPARER Patient Reported Respiratory Rate 18 10/12/2017 11:4 8 AM CDT Oxygen Saturation 100% 10/12/2017 11: 48 AM CDT Inhaled Oxygen Concentration - - Weight 96.6 kg (213 lb) 10/06/2021 12:2 1 PM CDT Height 181.6 cm (5' 11.5) 10/06/2021 1 2:21 PM CDT Body Mass Index 29.29 10/06/2021 12:21 PM CDT Plan of Treatment Health Maintenance Due Date Last Done Comments Hep C Screening (Preventive Services) 1988 HepB (1) 1988 HIV Screening (Preventive Services) 2004 COVID-19 Vaccine (3 - season) 2023 09/26/2020, 08/28/2020 Influenza (#1) 2023 02/07/2021, 08/01/2020, 02/28/2019, Additional history exists Adult Preventive Visit 10/07/2023 10/06/2021 Cholesterol 10/06/2026 10/06/2021 DTaP/Tdap/Td (2 - Tdap) 02/23/2027 02/23/2017 Zoster/Shingles (1 of 2) 2038 HPV Vaccine Aged Out No longer eligi ble based on patient's age to complete this topic HepA Aged Out No longer eligi ble based on patient's age to complete this topic Hib Aged Out No longer eligi ble based on patient's age to complete this topic IPV (Polio) Aged Out No longer eligi ble based on patient's age to complete this topic MCV4 Aged Out No longer eligi ble based on patient's age to complete this topic Pneumococcal Aged Out No longer eligi ble based on patient's age to complete this topic Care Teams Pot Liner Relationship Specialty Start [place] [address] [place] [address] [phone] PCP - General Family Practice 02/22/17
--- OUTSIDE RECORDS SUMMARY | 2023-06-15 21:57 | XMS_ITS | Encounter Summary ---
Author Name Unknown Organization [facility] Address [address] [place] [address] Care Team Providers Care Regional Manager Name Role Phone Feliciano Dexter MD Primary Care Provider Reason for Visit * Reason Comments Medication Refill Question Encounter Details Date Type Department Care Team Description 09/04/2022 Telephone [place] [place] [address] [place] [address] [place], [place] [phone] Medication Refill Question Social History Tobacco Use Types Packs/Day Years [...] as of this encounter Nursing Notes * Makayla Foley RN - 09/04/2022 4:13 PM CDT Patient notified, no further needs. * Feliciano Dexter MD - 09/04/2022 4:11 PM CDT Adderall XR script sent to [facility] * Makayla Foley RN - 09/04/2022 4:01 PM CDT Further Assistance Needed on Refill from Clinician RN reviewed. Medication not listed on standing order. Patient asking for this to be sent to [facility]-he verified they do have stock in today. Has been out for a month. Please call when rx sent. Review pended order for accuracy and sign if appropriate Requested Prescriptions Pending Prescriptions Disp Refills amphetamine-dextroamphetamine XR (ADDERALL XR) 20 MG 24 hour release capsule 60 Capsule 0 Sig: Take 2 Capsules (40 mg) by mouth daily. * Cheyanne Verdugo RN - 09/04/2022 3:46 PM CDT Calling patient- Informed to call other pharmacies to see if they have it in stock and to give the clinic a call back. Patient agreeable to plan. * Nabila Hector - 09/04/2022 3:41 PM CDT Medications - Med Change / Question Is this a medication change or a general question? Med Question What is your question or concern? Pt stated that pharmacy will not be filling prescription due to not having in stock. Recommended patient to speak with PCP. What is the name and dose of the medication? Adderall 20 mg How often do you take it? Twice daily Who prescribed it? Feliciano Dexter MD If a prescription is needed, patient would like it filled at the pharmacy listed in Medication Management. Is it okay to leave a detailed message on your voicemail? Yes Is there anything else I can help you with today? documented in this encounter Plan of Treatment Not on file documented as of this encounter Visit Diagnoses Diagnosis ADHD (attention deficit hyperactivity disorder), inattentive type (HRC)- Primary Attention deficit disorder with hyperactivity documented in this encounter Care Teams Regional Manager Relationship Specialty [place] [address] [place] [address] [place] [address] PCP - General Family Practice 02/22/17 documented as of this encounter
--- OUTSIDE RECORDS SUMMARY | 2023-06-15 21:57 | XMS_ITS | Encounter Summary ---
Author Name Unknown Organization [facility] Address [address] [place] [address] Care Team Providers Care Photographic Technician Name Role Phone Feliciano Dexter MD Primary Care Provider [phone] Reason for Visit * Reason Onset Date Comments Refill 07/22/2022 amphetamine-dext roamphetamine XR (ADDERALL XR) 20 MG 24 hour release capsule Encounter Details Date Type Department Care Team Description 07/22/2022 Refill [facility] Medicine [address] [place] [address] [phone] Feliciano Dexter [place] [id number] [place] [address] [phone] Refill (amphetamine-dextroamph etamine XR (ADDERALL XR) 20 MG 24 hour release capsule) Social History Tobacco Use Types Packs/Day Years [...] as of this encounter Nursing Notes * Interface, Out Surescripts Prov Query - 07/22/2022 7:24 AM CST amphetamine-dextroamphetamine XR (ADDERALL XR) 20 MG 24 hour release capsule Medication started: 02/23/2017 Last ordered by [employer]: 06/22/2022 (30 days ago) QTY: 60, Refills: 0, Sig: take 2 capsules (40 mg) by mouth daily. do not start before june 22, 2022. (changed) -> Unable to determine if sig has changed, review required. -> Medication cannot be delegated. Last qualifying visit: 04/23/2022 (with [employer]) Next scheduled visit: None [facility] Embedded Refills, Reference: [id number], 07/22/2022 7:24:05 AM MANAGER OF CREATIVE SERVICES, Pool: REFILL WIZARD ADMIN ([id number]) * Interface, Out [employer] Prov Query - 07/22/2022 7:24 AM CST No Careplan note found by [employer]. * Stacey Means - 07/22/2022 7:22 AM CST Medications - Refill Request Name of prescribing clinician: eFliciano Dexter MD Additional comments (related to the above concern): The pt states he is out of the medication. The pharmacy has been confirmed by the pt. For this refill, patient would like it filled at the pharmacy listed in Medication Management. If there are questions regarding your request, is it okay to leave a detailed message on your voicemail? Yes GER OF CREATIVE SERVICES documented in this encounter Plan of Treatment Not on file documented as of this encounter Visit Diagnoses Diagnosis ADHD (attention deficit hyperactivity disorder), inattentive type (HRC) Attention deficit disorder with hyperactivity documented in this encounter Care Teams Photographic Technician Relationship Specialty Start [place] [address] [place] [address] PCP - General Family Practice 02/22/17 documented as of this encounter
[2023-06-15 22:06] LABS: Basophils Absolute Auto 0.03 K/uL (0.00-0.30); Basophils Percent Auto 0.7 % (0.0-3.0); Eosinophils Absolute Auto 0.03 K/uL (0.00-0.50); Eosinophils Percent Auto 0.7 % (0.0-7.0); Hematocrit 35.1 % (37.0-53.0); Hemoglobin* 12.3 gm/dL (13.5-17.5); Immature Granulocytes Abs Auto 0.02 K/uL (0.00-0.30); Immature Granulocytes Pct Auto 0.4 %; Lymphocytes Absolute Auto 1.86 K/uL (0.90-2.90); Lymphocytes Percent Auto 40.4 % (20-44); Mean Corpuscular HGB Conc 35 gm/dL (32-36); Mean Corpuscular Hemoglobin 32 pg (26-34); Mean Corpuscular Volume 90 fL (80-100); Monocytes Percent Auto 10.4 % (0.0-11.0); Neutrophils Absolute Auto 2.18 K/uL (1.7-7.0); Neutrophils Percent Auto 47.4 % (42.0-72.0); Platelet Count* 164 K/uL (140-440); Red Blood Count 3.91 m/uL (4.30-5.90)
[2023-06-15 22:10] LABS: Slide Review Reflex No
[2023-06-15] MEDS: LORazepam 2 MG/ML inj IVP ×2 (22:10→23:50)
[2023-06-15] MEDS: 0.9 % SODIUM CHLORIDE 1000 ml 1,000 ML IV (22:10)
[2023-06-15] MEDS: FOLIC ACID 1 MG TABLET PO (22:10)
[2023-06-15 22:17] LABS: Albumin* 4.1 g/dL (3.3-5.0); Chloride* 104 mmol/L (96-114)
[2023-06-15 22:18] LABS: Sodium* 135 mmol/L (135-149)
[2023-06-15 22:20] LABS: Alkaline Phosphatase* 51 U/L (40-150); Anion Gap 11 mEq/L (7-15); Aspartate Amino Transferase* 84 U/L (12-35); Bilirubin Total* 0.8 mg/dL (0.1-1.5); Blood Urea Nitrogen* 20 mg/dL (5-24); Carbon Dioxide* 20 mmol/L (20-32); Estimated Glomerular Filt Rate 101 ml/min; Lipase* 111 U/L (23-300); Total Protein* 6.6 g/dL (6.0-8.3)
[2023-06-15 22:21] LABS: Alanine Aminotransferase* 46 U/L (4-50); Calcium* 8.7 mg/dL (8.4-10.6); Glucose* 139 mg/dL (60-115); Magnesium* 1.9 mg/dL (1.5-2.6)
[2023-06-15 22:30] LABS: Ethanol* < 0.01 % (0.01-0.03); Potassium* 2.8 mmol/L (3.6-5.1)
[2023-06-15] MEDS: THIAMINE 100 MG TABLET PO (22:33)
[2023-06-15 22:36] LABS: Troponin I* < 0.01 ng/mL (0.01-0.04)
[2023-06-15] MEDS: POTASSIUM BICARB 25 MEQ EFFERVESCENT TAB 50 MEQ PO (23:28)
[2023-06-16] LABS: Troponin I* < 0.01 ng/mL (0.01-0.04)
[2023-06-16 00:02] VITALS: BP 116/73
[2023-06-16 00:28] VITALS: PULSE 106; O2SAT 96
[2023-06-16 00:30] VITALS: PULSE 97; O2SAT 98
[2023-06-16 00:31] VITALS: BP 110/60; PULSE 107; O2SAT 96
--- NOTE | 2023-06-16 02:41 | ED_ITS ---
HPI - General Adult General Date Seen: 06/15/23 Chief complaint: Anxiety Stated complaint: Anxiety/Chest pain Time Seen by Provider: 06/15/23 21:48 History of Present Illness HPI narrative: This is a 33-year-old male with a history of depression, anxiety, alcohol use disorder, who presents to the ER today by EMS for evaluation of some discomfort in his chest, irregular heartbeat, feeling warm all over, in the setting of home alcohol withdrawal. He has a history of alcohol use disorder dating back almost a decade. It sounds like his anxiety and alcohol use stem from service. [facility] He has been through treatment a few times over the past 10 years. He had maintained about 7 years of sobriety but then relapsed last spring. He has been drinking heavily for several months and then went into an inpatient center at the [facility] in [place] from March-May. He only maintained a couple of weeks of sobriety after discharge and relapse. He has been drinking heavily, about 750 mL of hard liquor every day, for the past couple of weeks. He knows that this degree of alcohol consumption is not good for him and he wants to get sober. He has been trying to wean himself off alcohol for the past week or so. He had cut down to about half of his previous intake for 3 or 4 days and then 3 days ago quit drinking altogether. He has been going through withdrawal at home. He has been feeling shaky, sweaty, tremulous. He has also been having some auditory hallucinations at home, in particular yesterday. He says he actually started to feel better today, was still having some withdrawal. Tonight he felt an odd sensation where for about a 2nd his heart felt funny across the front of his chest. He then had some numbness affecting both of his arms, felt hot and sweaty, and felt a warm hot feeling across his upper back. He was worried that something bad was happening so called 911. Paramedics administered 2 doses of Ativan 0.5 mg IV EN route and the patient is calmer now but still somewhat anxious. Related Data Previous Rx's Medication Instructions Recorded potassium chloride 20 mEq 20 meq PO DAILY #7 tabs 06/16/23 tablet,extended release Allergies Allergy/AdvReac Type Severity Reaction Status Date / Time No Known Drug Allergies Allergy Verified 06/15/23 21:49 PFSH PFS Social History How often do you have a drink containing alcohol: 2-3 times a week AUDIT-C Alcohol total score: 3 service: Yes Exam Narrative: Exam Narrative: Constitutional: Appears well-developed and well-nourished. Alert. Conversant but anxious. Mildly tremulous. Overall very polite and forthright about his alcohol consumption. HENT: Head: Atraumatic. Nose: Nose normal. Mouth/Throat: Oral mucosa is clear and moist. no trismus. Pharynx normal. Tonsils symmetric. No tonsillar enlargement, erythema, or exudate. Eyes: Conjunctivae normal. EOM normal. Pupils equal, round, and reactive to light. No scleral icterus. Neck: Normal range of motion. Neck supple. No tracheal deviation present. No JVD. Cardiovascular: Normal rate, regular rhythm. No gallop. No friction rub. No murmur heard. Symmetric radial and PT artery pulses Pulmonary/Chest: Effort normal. No stridor. No respiratory distress. No wheezes. No rales. No rhonchi . No tenderness. Abdominal: Soft. Bowel sounds normal. No distension. No mass. No tenderness. No rebound. No guarding. Musculoskeletal: RUE: Normal range of motion. No tenderness. No deformity LUE: Normal range of motion. No tenderness. No deformity RLE: Normal range of motion. No edema. No tenderness. No deformity LLE: Normal range of motion. No edema. No tenderness. No deformity Lymph: No cervical adenopathy. Neurological: Alert and oriented to person, place, and time. Normal strength. CN II-VII intact. No sensory deficit. GCS eye subscore is 4. GCS verbal subscore is 5. GCS motor subscore is 6. Normal coordination Skin: Skin is warm and dry. No rash noted. No pallor. Normal capillary refill. Psychiatric: Anxious. Endorses alcohol use, trying to cut down this week, as per HPI. No suicidal ideation. Had some auditory hallucinations yesterday but no hallucinations at this time. Const: Vital Signs, click to edit/add: Vital Signs - 24 hr 06/15/23 21:41 06/15/23 22:03 06/15/23 22:04 Temperature 98.3 F Pulse Rate 98 97 Pulse Rate [Left P ulse Oximeter] 100 Pulse Rate [Pulse Oximeter] Respiratory Rate 20 Blood Pressure 118/84 Blood Pressure [Ri ght Arm] Blood Pressure [Ri ght Upper Arm] 126/81 Pulse Oximetry 99 97 95 Oxygen Delivery Me od Room Air 06/15/23 22:30 06/15/23 22:32 06/15/23 23:00 Temperature Pulse Rate 93 96 100 Pulse Rate [Left P ulse Oximeter] Pulse Rate [Pulse Oximeter] Respiratory Rate Blood Pressure 122/110 H Blood Pressure [Ri ght Arm] Blood Pressure [Ri ght Upper Arm] Pulse Oximetry 93 95 94 Oxygen Delivery Me thod 06/15/23 23:02 06/15/23 23:05 06/15/23 23:32 Temperature Pulse Rate 192 H Pulse Rate [Left P ulse Oximeter] Pulse Rate [Pulse Oximeter] Respiratory Rate Blood Pressure 131/81 126/79 Blood Pressure [Ri ght Arm] Blood Pressure [Ri ght Upper Arm] Pulse Oximetry 97 Oxygen Delivery Ut thod 06/15/23 23:41 06/15/23 23:46 06/16/23 00:02 Temperature 98.8 F Pulse Rate 108 H Pulse Rate [Left P ulse Oximeter] Pulse Rate [Pulse Oximeter] 112 H Respiratory Rate 20 Blood Pressure 116/73 Blood Pressure [Ri ght Arm] 126/79 Blood Pressure [Ri ght Upper Arm] Pulse Oximetry 96 [facility] 06/16/23 00:02 06/16/23 00:02 06/16/23 00:02 Temperature Pulse Rate Pulse Rate [Left P ulse Oximeter] Pulse Rate [Pulse Oximeter] Respiratory Rate Blood Pressure 116/73 116/73 116/73 Blood Pressure [Ri ght Arm] Blood Pressure [Ri ght Upper Arm] Pulse Oximetry Oxygen Delivery Ut thod 06/16/23 00:28 06/16/23 00:30 06/16/23 00:31 Temperature Pulse Rate 106 H 97 107 H Pulse Rate [Left P ulse Oximeter] Pulse Rate [Pulse Oximeter] Respiratory Rate Blood Pressure 110/60 Blood Pressure [Ri ght Arm] Blood Pressure [Ri ght Upper Arm] Pulse Oximetry 96 98 96 Oxygen Delivery Me thod Course Vital Signs Vital signs: Initial Vital Signs Temperature 98.3 F 06/15/23 21:41 Temperature Source Temporal Artery Scan 06/15/23 21:41 Pulse Rate 100 06/15/23 21:41 Pulse Rhythm Regular 06/15/23 21:41 Respiratory Rate 20 06/15/23 21:41 Blood Pressure 126/81 06/15/23 21:41 Blood Pressure Mean 96 06/15/23 21:41 Blood Pressure Position Semi-Fowlers 06/15/23 21:41 Pulse Oximetry 99 06/15/23 21:41 Oxygen Delivery Method Room Air 06/15/23 21:41 Vital Signs Temperature 98.3 F 06/15/23 21:41 Pulse Rate 100 06/15/23 21:41 Respiratory Rate 20 06/15/23 21:41 Blood Pressure 126/81 06/15/23 21:41 Pulse Oximetry 99 06/15/23 21:41 Oxygen Delivery Method Room Air 06/15/23 21:41 Temperature 98.8 F 06/15/23 23:41 Pulse Rate 107 H 06/16/23 00:31 Respiratory Rate 20 06/15/23 23:41 Blood Pressure 110/60 06/16/23 00:31 Pulse Oximetry 96 06/16/23 00:31 Oxygen Delivery Method Room Air 06/15/23 23:41 Medications Administered Medications: Discontinued Medications Generic Name Dose Route Start Last Admin Trade Name Freq PRN Reason Stop Dose Admin Folic Acid 1 mg 06/15/23 21:50 06/15/23 22:10 Folic Acid 1 Mg Tablet PO 06/15/23 21:51 1 mg ONCE ONE Administration Thiamine HCl 250 mg/ Sodium 102.5 mls @ 102.5 mls/hr 06/15/23 21:49 06/15/23 22:33 Chloride IV 06/15/23 21:50 Not Given ONCE ONE Sodium Chloride 1,000 mls @ 1,000 mls/hr 06/15/23 21:52 06/15/23 23:10 0.9 % Sodium Chloride 1000 Ml IV 06/15/23 22:51 Infused .Q1H SANTO Infusion Lorazepam 1 - 2 mg 06/15/23 21:49 06/15/23 23:50 Lorazepam 2 Mg/Ml Inj IVP 1 mg Q1H PRN Administration Potassium Bicarbonate 50 meq 06/15/23 23:10 06/15/23 23:28 Potassium Bicarb 25 Meq Effervescent Tab PO 06/15/23 23:11 50 meq ONCE ONE Administration Thiamine HCl 100 mg 06/15/23 22:28 06/15/23 22:33 Thiamine 100 Mg Tablet PO 06/15/23 22:29 100 mg ONCE ONE Administration Medical Decision Making MDM Narrative Medical decision making narrative: This patient presents to the ER today for evaluation of chest or discomfort and palpitations that occurred at home tonight. He is currently trying to put himself through alcohol withdrawal at home and had been titrating down from heavy alcohol consumption and then stop drinking altogether 3 days ago. Differential was broad. No evidence of palpitations, syncope or other cardiac dysrhythmia while here in the ER but I wonder if he may have had some PVCs or PACs at home.. He is not really having chest pain, just a brief discomfort in his chest. Overall would be low risk for ACS given young age, however We considered possible ACS, however workup with EKG and troponin with 2 hour delta troponin is negative. Given time since onset of symptoms, I do not think the patient needs to be admitted for further sets of enzymes. EKG shows no evidence for pericarditis. Clinical presentation not suggestive of myocarditis. Chest x-ray shows no evidence for pneumonia, pneumothorax, pulmonary edema, pleu ral effusion, rib fracture, cardiomegaly. Mediastinum is normal on the x-ray. The patient has no ripping or tearing pain through to the back and has symmetric pulses on exam, no other acute neuro fin dings so I doubt aortic dissection. Risk of radiation and contrast exposure would outweigh the benefit of CT angiogram. We considered PE for this patient. Overall low risk. Presented with heart rate of 100, developed sinus tach due to alcohol withdrawal but otherwise perc negative. No wheezing or bronchospasm to suggest COPD/asthma. No signs of chest wall cellulitis, shingles, injury. This is a strong component of anxiety underlying the patient's symptoms. He felt some medically better after Ativan. With alcohol withdrawal, labs do show hypokalemia, supplemented here in the ER. With monitored for ongoing alcohol withdrawal. CIWA scales were elevated, at about 11. He received 2 doses of Ativan, 1 mg each, while here in the ER with improvement in anxiety. Despite that he had a persistent resting sinus tachycardia. I discussed with the patient and recommended admission for monitoring for alcohol withdrawal. He politely but firmly declines. He says he will be able to go home. He is staying with his parents who can monitor him. He has important appointments tomorrow including meeting with a chemical dependency counselor and with a depression treatment center. Those appointments have been previously set up been longstanding and would be difficult for him to reschedule. Knowing that he has forward motivated and actively seeking to improve his mental health and substance abuse, I think that hospitalization at this time, would likely be detrimental to his long-term care. However hospitalization would be beneficial in terms of safety and monitoring in the setting of acute withdrawal. Overall he feels comfortable going home with his parents. Prescription for Ativan provided. Potassium supplementation. Recommend close outpatient follow-up with PCP to recheck potassium. With reasonable clinical confidence, I think the patient is safe for outpatient follow up. Discussed return precautions. Questions answered. Patient voices comfort with the plan. Lab Data Labs: Lab Results 06/15/23 06/15/23 06/15/23 Range/Units 21:57 21:57 23:25 WBC 4.60 (4.50-11.00) K/uL RBC 3.91 L (4.30-5.90) m/uL Hgb 12.3 L (13.5-17.5) gm/dL Hct 35.1 L (37.0-53.0) % MCV 90 (80-100) fL MCH 32 (26-34) pg MCHC 35 (32-36) gm/dL RDW Coeff of [place] 13.0 (11.5-15.5) % Plt Count 164 (140-440) K/uL Neut % (Auto) 47.4 (42.0-72.0) % Lymph % (Auto) 40.4 (20-44) % [place] % (Auto) 10.4 (0.0-11.0) % Eos % (Auto) 0.7 (0.0-7.0) % Baso % (Auto) 0.7 (0.0-3.0) % Neut # (Auto) 2.18 (1.7-7.0) K/uL Lymph # (Auto) 1.86 (0.90-2.90) K/uL [place] # (Auto) 0.50 (0.00-0.90) K/UL Eos # (Auto) 0.03 (0.00-0.50) K/uL Baso # (Auto) 0.03 (0.00-0.30) K/uL Abs Immat Gran (auto) 0.02 (0.00-0.30) K/uL Imm/Tot Granulo (auto) 0.4 % Sodium 135 (135-149) mmol/L Potassium 2.8 L* (3.6-5.1) mmol/L Chloride 104 (96-114) mmol/L Carbon Dioxide 20 (20-32) mmol/L Anion Gap 11 (7-15) mEq/L BUN 20 (5-24) mg/dL Creatinine 1.0 (0.5-1.5) mg/dL Estimated GFR 101 ml/min Glucose 139 H (60-115) mg/dL Calcium 8.7 (8.4-10.6) mg/dL Magnesium 1.9 Cancelled (1.5-2.6) mg/dL Total Bilirubin 0.8 (0.1-1.5) mg/dL AST 84 H (12-35) U/L ALT 46 (4-50) U/L Alkaline Phosphatase 51 (40-150) U/L Troponin I < 0.01 L < 0.01 L (0.01-0.04) ng/mL Total Protein 6.6 (6.0-8.3) g/dL Albumin 4.1 (3.3-5.0) g/dL Lipase 111 (23-300) U/L Ethyl Alcohol < 0.01 L (0.01-0.03) % Discharge Plan Discharge Clinical Impression: Alcohol withdrawal, Anxiety, Chest discomfort, Acute hypokalemia Patient Disposition: Home, Self-Care Condition: Stable Instructions: Hypokalemia (ED), Alcohol Withdrawal (DC), Alcohol Use Disorder (ED) Additional Instructions: As we discussed, please return to the ER right away if you have any worsening symptoms such as worsening anxiety, tremor, racing heart, chest discomfort, trouble breathing, or any other problems. Please take your potassium every day into your recheck with your doctor on Wednesday to have your potassium level recheck. Please follow-up with your outpatient appointments tomorrow. Prescriptions: New potassium chloride 20 mEq tablet extended release 20 meq PO DAILY Qty: 7 2RF Follow Up/Referrals: Provider,Not a Local [Primary Care Provider] - Stand Alone Forms: [employer] Info Instructions
== END 2023-06-16 01:18 | disposition home or self-care (01) ==
PROVIDERS: Emergency Provider Emergency Medicine
DX: F10.239 Alcohol dependence with withdrawal, unspecified (principal); R07.89 Other chest pain; E87.6 Hypokalemia; F41.9 Anxiety disorder, unspecified
CPT/HCPCS: 36415; 71046; 80053; 82077; 83690; 83735; 84484; 85025; 93005; 96360; 99284; 99285; A9270; J2060; J7030

== ENCOUNTER 2023-07-11 18:34 | Inpatient (IN) | payer OTHER, SELFPAY ==
[2023-07-11] VITALS (17 sets, daily range): BP systolic 113–143; BP diastolic 79–104; PULSE 105–140; RESP 18–20; TEMP 36.6–37.4; O2SAT 91–96; BMI 28.5; BMI 26.2
--- NOTE | 2023-07-11 18:55 | ED.GENADULT ---
HPI - General Adult General Chief complaint: Alcohol/Intoxication Stated complaint: Alcohol withdrawls Time Seen by Provider: 07/11/23 18:42 Source: patient Mode of arrival: ambulatory Limitations: no limitations History of Present Illness HPI narrative: 33-year-old male with a past medical history significant for anxiety, depression and alcohol use disorder presents today with concerns about alcohol withdrawal. Patient tells me that he stopped drinking around 11:00 a.m. this morning and knows that he is going to go into withdrawal. He states that he has had a seizure in the past as well as DTs. He states that his last significant withdrawal was in May of last year. He tells me that he has been suffering from alcohol use disorder for over a decade. He had a period of sobriety recently at the end of the year and then relapsed in May. States that he had about 2 or 3 weeks of sobriety in June and then relapsed again. States that for the last 3 days he has been drinking 1.75 L of vodka every 24 hours. He states that he no longer wants to drink but knows that he cannot withdraw home. States he is not on any other medications, denies other drug use. Related Data Previous Rx's Medication Instructions Recorded potassium chloride 20 mEq 20 meq PO DAILY #7 tabs 06/16/23 tablet,extended release Allergies Allergy/AdvReac Type Severity Reaction Status Date / Time No Known Drug Allergies Allergy Verified 06/15/23 21:49 Review of Systems Status of ROS: Reports: 10 or more systems reviewed and unremarkable except as noted in History and below [facility] Social History Smoking Status: Unknown if ever smoked How often do you have a drink containing alcohol: 4 or more times a week How many standard drinks containing alcohol do you have on a typical day: 10 or more How often do you have six or more drinks on one occasion: Never AUDIT-C Alcohol total score: 8 Non-prescribed substance use: denies use service: Yes Exam Narrative: Exam Narrative: Well-nourished well-developed patient , tachycardic and anxious. Alert and oriented x3. Answers questions appropriately. Thoughts are goal oriented and rational. No tangential or magical thinking noted. Patient speaks in full sentences without needing to catch his breath. HEENT: Normocephalic atraumatic. Pupils are equally round reactive to light. Extraocular muscles are intact. Conjunctivae are moist without any icterus noted. Moist mucous membranes. Neck is soft. Cardiovascular: Heart is tachycardic with regular rhythm, S1 and S2 are present without any murmurs. Lungs: Clear to auscultation bilaterally no wheezes rhonchi or rales are appreciated. Patient takes deep breaths without any discomfort. Abdomen: Soft and nontender nondistended with normal bowel sounds. Extremities: Bilateral lower extremities are without edema. Skin: Clammy. Const: Vital Signs, click to edit/add: Vital Signs - 24 hr 07/11/23 18:41 07/11/23 18:51 07/11/23 19:00 Temperature 97.9 F Pulse Rate Pulse Rate [Pulse Oximeter] 140 H Respiratory Rate 20 Blood Pressure Blood Pressure [Ri ght Upper Arm] 143/104 H 135/88 Pulse Oximetry 95 92 Oxygen Delivery Me thod Room Air 07/11/23 19:09 07/11/23 19:15 07/11/23 19:30 Temperature Pulse Rate 109 H 125 H 112 H Pulse Rate [Pulse Oximeter] Respiratory Rate Blood Pressure Blood Pressure [Ri ght Upper Arm] Pulse Oximetry 91 91 94 Oxygen Delivery Me thod 07/11/23 19:32 07/11/23 19:45 Temperature Pulse Rate 114 H 110 H Pulse Rate [Pulse Oximeter] Respiratory Rate Blood Pressure 122/79 Blood Pressure [Ri ght Upper Arm] Pulse Oximetry 94 93 Oxygen Delivery Me thod Course Course ED Course: IV is established and patient given a L of normal saline and 1 mg of IV Ativan. EKG, read by me, shows sinus tachycardia with a pulse of 120. His pulse does come down 110. Blood pressure remained stable. Blood alcohol level at 0.34, lactate 4.4. L of LR is started. With a history of seizures and DTs, and a blood alcohol currently at 0.34 and patient already starting withdrawal symptoms, I do believe that admission is necessary at this time. Patient is in agreement. Patient will be admitted for further management. Vital Signs Vital signs: Initial Vital Signs Temperature 97.9 F 07/11/23 18:41 Temperature Source Temporal Artery Scan 07/11/23 18:41 Pulse Rate 140 H 07/11/23 18:41 Respiratory Rate 20 07/11/23 18:41 Blood Pressure 143/104 H 07/11/23 18:41 Blood Pressure Mean 117 H 07/11/23 18:41 Blood Pressure Position Sitting 07/11/23 18:41 Pulse Oximetry 95 07/11/23 18:41 Oxygen Delivery Method Room Air 07/11/23 18:41 Vital Signs Temperature 97.9 F 07/11/23 18:41 Pulse Rate 140 H 07/11/23 18:41 Respiratory Rate 20 07/11/23 18:41 Blood Pressure 143/104 H 07/11/23 18:41 Pulse Oximetry 95 07/11/23 18:41 Oxygen Delivery Method Room Air 07/11/23 18:41 Temperature 97.9 F 07/11/23 18:41 Pulse Rate 110 H 07/11/23 19:45 Respiratory Rate 20 07/11/23 18:41 Blood Pressure 122/79 07/11/23 19:32 Pulse Oximetry 93 07/11/23 19:45 Oxygen Delivery Method Room Air 07/11/23 18:41 Medications Administered Medications: Generic Name Dose Route Start Last Admin Trade Name Freq PRN Reason Stop Dose Admin Lactated Ringer's 1,000 mls @ 1,000 mls/hr 07/11/23 19:27 07/11/23 19:40 Lactated Ringers 1000 Ml IV 07/11/23 20:26 1,000 mls/hr .Q1H ONE Administration Ondansetron HCl 4 mg 07/11/23 19:57 07/11/23 20:03 Ondansetron 2 Mg/Ml Inj IVP 07/11/23 19:58 4 mg ONCE ONE Administration Discontinued Medications Generic Name Dose Route Start Last Admin Trade Name Freq PRN Reason Stop Dose Admin Sodium Chloride 1,000 mls @ 1,000 mls/hr 07/11/23 19:00 07/11/23 19:01 0.9 % Sodium Chloride 1000 Ml IV 07/11/23 19:59 1,000 mls/hr .Q1H SANTO Administration Lorazepam 1 mg 07/11/23 18:51 07/11/23 19:06 Lorazepam 2 Mg/Ml Inj IVP 07/11/23 18:52 1 mg ONCE ONE Administration Thiamine HCl 100 mg 07/11/23 19:27 07/11/23 19:40 Thiamine 100 Mg Tablet PO 07/11/23 19:28 100 mg ONCE ONE Administration Medical Decision Making MDM Narrative Medical decision making narrative: 33-year-old male with alcohol use disorder in acute alcohol withdrawal, seizure and DT history. Patient admitted. Medical Records Medical records reviewed: Yes I reviewed the patient's medical records Lab Data Lab results reviewed: Yes I reviewed the patient's lab results Labs: Lab Results 07/11/23 Range/Units 18:55 WBC 8.75 (4.50-11.00) K/uL RBC 5.56 (4.30-5.90) m/uL Hgb 17.1 (13.5-17.5) gm/dL Hct 48.0 (37.0-53.0) % MCV 86 (80-100) fL MCH 31 (26-34) pg MCHC 36 (32-36) gm/dL RDW Coeff of [place] 12.0 (11.5-15.5) % Plt Count 313 (140-440) K/uL Neut % (Auto) 55.2 (42.0-72.0) % Lymph % (Auto) 39.2 (20-44) % [place] % (Auto) 5.0 (0.0-11.0) % Eos % (Auto) 0.2 (0.0-7.0) % Baso % (Auto) 0.3 (0.0-3.0) % Neut # (Auto) 4.82 (1.7-7.0) K/uL Lymph # (Auto) 3.43 H (0.90-2.90) K/uL [place] # (Auto) 0.40 (0.00-0.90) K/UL Eos # (Auto) 0.02 (0.00-0.50) K/uL Baso # (Auto) 0.03 (0.00-0.30) K/uL Abs Immat Gran (auto) 0.01 (0.00-0.30) K/uL Imm/Tot Granulo (auto) 0.1 % Sodium 138 (135-149) mmol/L Potassium 3.7 (3.6-5.1) mmol/L Chloride 100 (96-114) mmol/L Carbon Dioxide 18 L (20-32) mmol/L Anion Gap 20 H (7-15) mEq/L BUN 23 (5-24) mg/dL Creatinine 0.9 (0.5-1.5) mg/dL Estimated Creat Clear 125.74 Estimated GFR 114 ml/min Glucose 208 H (60-115) mg/dL Lactate 4.4 H* (0.5-1.9) mmol/L Calcium 8.0 L (8.4-10.6) mg/dL Total Bilirubin 0.6 (0.1-1.5) mg/dL Direct Bilirubin 0.2 (0.0-0.5) mg/dL AST 44 H (12-35) U/L ALT 39 (4-50) U/L Alkaline Phosphatase 69 (40-150) U/L Total Protein 7.5 (6.0-8.3) g/dL Albumin 4.5 (3.3-5.0) g/dL Salicylates < 1.0 L (1.0-10) mg/dL Acetaminophen < 10.0 L (10.0-30.0) ug/mL Ethyl Alcohol 0.34 H* (0.01-0.03) % ECG Data Attestation: I personally reviewed and interpreted this ECG as follows: Discharge Plan Discharge Clinical Impression: Alcohol withdrawal syndrome Patient Disposition: Admitted As Observation Condition: Stable Prescriptions: No Action potassium chloride 20 mEq tablet extended release 20 meq PO DAILY Qty: 7 2RF Follow Up/Referrals: Provider,Not a Local [Primary Care Provider] -
[2023-07-11] MEDS: 0.9 % SODIUM CHLORIDE 1000 ml 1,000 ML IV (19:01)
[2023-07-11 19:04] LABS: Basophils Absolute Auto 0.03 K/uL (0.00-0.30); Basophils Percent Auto 0.3 % (0.0-3.0); Eosinophils Absolute Auto 0.02 K/uL (0.00-0.50); Eosinophils Percent Auto 0.2 % (0.0-7.0); Hemoglobin* 17.1 gm/dL (13.5-17.5); Immature Granulocytes Abs Auto 0.01 K/uL (0.00-0.30); Immature Granulocytes Pct Auto 0.1 %; Lymphocytes Absolute Auto 3.43 K/uL (0.90-2.90); Lymphocytes Percent Auto 39.2 % (20-44); Mean Corpuscular HGB Conc 36 gm/dL (32-36); Mean Corpuscular Hemoglobin 31 pg (26-34); Mean Corpuscular Volume 86 fL (80-100); Neutrophils Absolute Auto 4.82 K/uL (1.7-7.0); Neutrophils Percent Auto 55.2 % (42.0-72.0); Platelet Count* 313 K/uL (140-440); Red Blood Count 5.56 m/uL (4.30-5.90); White Blood Count* 8.75 K/uL (4.50-11.00)
[2023-07-11] MEDS: LORazepam 2 MG/ML inj 1 MG IVP ×2 (19:06→20:33)
[2023-07-11 19:10] LABS: Slide Review Reflex No
[2023-07-11 19:16] LABS: Lactate* 4.4 mmol/L (0.5-1.9)
[2023-07-11 19:29] LABS: Albumin* 4.5 g/dL (3.3-5.0); Chloride* 100 mmol/L (96-114); Sodium* 138 mmol/L (135-149)
[2023-07-11 19:30] LABS: Potassium* 3.7 mmol/L (3.6-5.1)
[2023-07-11 19:31] LABS: Creatinine* 0.9 mg/dL (0.5-1.5); Est. Creatinine Clearance* 125.74; Estimated Glomerular Filt Rate 114 ml/min
[2023-07-11 19:32] LABS: Alkaline Phosphatase* 69 U/L (40-150); Anion Gap 20 mEq/L (7-15); Aspartate Amino Transferase* 44 U/L (12-35); Bilirubin Direct* 0.2 mg/dL (0.0-0.5); Bilirubin Total* 0.6 mg/dL (0.1-1.5); Blood Urea Nitrogen* 23 mg/dL (5-24); Carbon Dioxide* 18 mmol/L (20-32); Glucose* 208 mg/dL (60-115); Total Protein* 7.5 g/dL (6.0-8.3)
[2023-07-11 19:33] LABS: Alanine Aminotransferase* 39 U/L (4-50)
--- OUTSIDE RECORDS SUMMARY | 2023-07-11 19:35 | XMS_ITS | Clinical Summary ---
Author Name Unknown Organization [facility] Address [address] [place] [id number] Care Team Providers Care Seismograph Chief Name Role Phone Provider, No Primary Primary [...] Date Alcohol withdrawal syndrome without complication 03/24/2023 Social History Tobacco Use Types Packs/Day Years [...] on patient's age to complete this topic Advance Directives Latest Code Status on File Code Status Date Activated Date Inactivated Comments Full Code 03/24/2023 5:01 AM 03/26/2023 4:25 PM Care Teams Seismograph Chief Relationship Specialty Start Date End Date Provider, No Primary . BOB SMITH [id number] PCP - General 03/23/23 Additional Source Comments PLEASE NOTE: Replies to this message will not be received.[facility]
--- OUTSIDE RECORDS SUMMARY | 2023-07-11 19:36 | XMS_ITS | Clinical Summary ---
Author Name Unknown Organization [facility] Address [address] [address] Care Team Providers Care Research Program Coordinator Name Role Phone Feliciano Dexter MD Primary Care Provider [phone] Source Comments You are receiving this document as you are listed as the primary care provider,follow-up provider, or the patient has been referred to you for consultation.This is in compliance with the Medicare and[facility] Incentive Program,which states Providers who transition their patient to another setting of careor provider of care or refers their patient to another provider of care shouldprovide summary care record for each transition of care or referral. [facility] Allergies No known active allergies Medications Medication [...] Qiv Multidose Vial 0.25 (6-35 Mos) 02/28 [id number] 04/12/2013 Influenza (Flucelvax), Preserv Free QIV 03/17/20 18 Influenza (Fluzone 0.25, 6-35 mos) 01/23/2017 Influenza IIV4 (Quadrivalent) 0.5mL (34313) 08/2020,02/02/2020,04/13/2014 Moderna Monovalent 12+ 09/26/2020,08/28/2020 Tdap 02/23/2017 [...] ??C (98.2 ??F) 07/08/2021 8 :30 AM [employer]PER[employer] Patient Reported Respiratory Rate 18 10/12/2017 11:4 [...] age to complete this topic Care Teams Research Program Coordinator Relationship Specialty Start [place] [id number] [place] BOB Lopez [phone] PCP - General Family Practice 02/22/17
--- OUTSIDE RECORDS SUMMARY | 2023-07-11 19:36 | XMS_ITS | Encounter Summary ---
Author Name Unknown Organization [facility] Address [address] [place] [id number] Care Team Providers Care Family Development Specialist Name Role Phone Feliciano Dexter MD Primary Care Provider [phone] Reason for Visit * Reason Onset Date Comments Refill 10/26/2022 Encounter Details Date Type Department Care Team Description 10/26/[address] [id number] Feliciano Dexter MD [address] [place] [id number] Refill Social History Tobacco Use Types Packs/Day [...] Center 12/09/2022 10:00 AM Feliciano Dexter MD [facility] Medicine PN GRIFFITH Review pended order for [...] hyperactivity documented in this encounter Care Teams Family Development Specialist Relationship Specialty [place] [address] [place] [address] [id number] PCP - General Family Practice 02/22/17 documented as of this encounter
--- OUTSIDE RECORDS SUMMARY | 2023-07-11 19:36 | XMS_ITS | Encounter Summary ---
Author Name Unknown [facility] Address [address] [place] [address] Care Team Providers Care Supervisor Sewer Maintenance Name Role Phone Feliciano Dexter MD Primary Care Provider [phone] Reason for Visit * Reason Onset Date Comments Refill 07/22/2022 amphetamine-dext roamphetamine XR (ADDERALL XR) 20 MG 24 hour release capsule Encounter Details Date Type Department Care Team Description 07/22/2022 Refill [facility] Medicine [address] [place] [address] [phone] Feliciano Dexter [place] [id number] [place] [address] [phone] Refill (amphetamine-dextroamph etamine XR (ADDERALL XR) 20 [...] (with [employer]) Next scheduled visit: None [employer] [facility] Embedded Refills, Reference: [id number], 07/22/2022 7:24:05 AM MACHINE FOLDER, Pool: REFILL WIZARD ADMIN ([id number]) * Interface, Out [employer] Prov Query - 07/22/2022 7:24 AM CST No Careplan note found by [employer]. * Stacey Means - 07/22/2022 7:22 AM CST Medications - Refill Request Name of prescribing clinician: Feliciano Dexter MD Additional comments (related to the above concern): The pt states he is out of the medication. The pharmacy has been confirmed by the pt. For this refill, patient would like it filled at the pharmacy listed in Medication Management. If there are questions regarding your request, is it okay to leave a detailed message on your voicemail? Yes INE FOLDER documented in this encounter Plan of Treatment Not on file documented as of this encounter Visit Diagnoses Diagnosis ADHD (attention deficit hyperactivity disorder), inattentive type (HRC) Attention deficit disorder with hyperactivity documented in this encounter Care Teams Supervisor Sewer Maintenance Relationship Specialty Start [place] [address] [place] [address] [id number] PCP - General Family Practice 02/22/17 documented as of this encounter
--- OUTSIDE RECORDS SUMMARY | 2023-07-11 19:36 | XMS_ITS | Encounter Summary ---
Author Name Unknown Organization [facility] Address [address] [place] [address] Care Team Providers Care Family Literacy Coordinator Name Role Phone Provider, No Primary Primary Care Provider Unava ilable Reason for Visit * Reason Comments Chemical Dependency * Inpatient Admission (Routine) Specialty Diagnoses / Procedures Referred By Johnny henry Referred To Contact Diagnoses Alcohol withdrawal syndrome without complication (HCC) ETOH withdrawl SI Referral ID Status Reason Start Date Expiration Date Visits Re quested Visits Authorized [id number] 1 1 Encounter Details Date Type Department Care Team Description 03/23/2023 9:32 PM CDT - 03/26/2023 1:25 PM CDT Hospital Encounter [facility] Medical Progressive Care [address] [place] [address] Corey Reza MD [address] [facility] [address] [place], [place] [address] Robles Mcmillan MD [address] [place] [address] [phone] (Work) Baldemar Monson MD [address] [place] [address] Shauna Deshpande MD [address] [place] [address] Dx: Suicidal ideation (Primary Dx) [...] - 03/26/2023 4:11 PM CDT DISCHARGE SUMMARY [facility] Attending Provider: Shauna Deshpande MD Primary Care Physician at Discharge: No [...] [facility] Crisis Line: 7. Start RRTP at [facility] on 03/30/23 as scheduled. Provider Follow-Up Specialist Order Specific Question Answer Comments When: 03/30/23 Reason: CD treatment With Who? RRTP at [facility] Reason I was hospitalized Order Comments: Alcohol [...] first 24 hours after discharge, please contact [facility] Adult Hospitalist Service at ext. [phone]; or for Laboratory Services: . Kind Regards, [...] SUMMARY OF HOSPITALIZATION: Balaji is a 32-year-old [place] with underlying alcohol use disorder, history of alcohol withdrawal, PTSD as well as liver disease who presented to [facility] emergency department on 03/23 with his parents for concerns of alcohol withdrawal and suicidal ideation. Last drink was earlier that afternoon. Patient endorsed suicidal ideation but no plan. He was noted to have some red-tinged emesis and blood in his urine. Also lower extremity swelling. Acknowledge cannabis use. Balaji hadbeen planning to [facility] for chemical dependency treatment at [facility]. Prior to this admission patient had sobriety for about 6 years until relapsing this summer. Unclear the circumstances surrounding the relapse. Patient was somewhat vague and hesitant to share psychiatric history during psychiatry consult on 03/24. Historically has had hallucinations with alcohol withdrawal, had denied hallucinating yet this admission. 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 For a couple of weeks he is not going to work because of his alcohol use. He was able to speak to his employer today and they have been supportive and he has gotten [employer] paperwork. He is scheduled to [facility] treatment at the [facility] March 30. This has been confirmed with the patient, CD as well as the patient's [facility] er. Should the patient medically discharge prior to 03/30/2023 he plans to go live with his parentsin [place]. He denies access to firearms. I was [...] (H) High IMPRESSION: Balaji is a 32-year-old [place] with the above noted medical history who presented to [facility] on 03/23 with alcohol withdrawal symptoms. [...] to discharge to the RRTP program at [facility] for chemical dependency residential treatment following this [...] You Can Quit handout was provided. Tobacco Hot Blaster 3-10 minutes spent with patient. Ext. [phone] * Baldemar Monson MD - 03/25/2023 1:41 [...] Withdrawalsymptoms worsened evening 03/24/2023 and transferred to [facility] for higher monitoring but with escalation of phenobarbital taper, symptoms improved enough to be able to transfer out of [facility] 03/25/2023 SUBJECTIVE Doing okay. Tolerating diet, no nausea. Ambulatory. He did have escalation of withdrawal symptoms last night requiring transfer to [facility] but this has improved with escalation to [...] Stable otherwise to transfer to floor from [facility] 2. Alcohol abuse. Patient given information for RRTP program at [facility] by HUSSEIN, and psychiatry also feelsthat transition to residential treatment is prudent. He is to call [facility] today to inquire more information about this. [...] residential treatment program such as RRTP at [facility]. Patient is to call [facility] today to find out more on this but potentially he might be a priority given he is currently hospitalized. Baldemar Monson MD - [facility] Hospitalists * Dorothy Banerjee SW - 03/25/2023 9:01 AM CDT Social Work Progress Assessment Transitional Barriers: Not medically ready for discharge Transfer from [facility] last evening Interventions Pt interested in CD tx at the [facility] upon d/c. HUSSEIN spoke with Mili in the RRTP program at the [facility], they do not have any information on [...] Received a call from Loretta at the [facility] asking if we knew when [...] Psychiatry recommending transition to RRTP program at [facility] which patient is in favor of per discussion with psychiatry, consulted CD/SW/CM Baldemar Monson MD - [facility] documented in this encounter H&P Notes * Robles Mcmillan MD - 03/24/2023 4:00 AM CDT HOSPITALIST Name: Balaji Mckeon ADMISSION HISTORY & PHYSICAL Date: 03/24/2023 PCP: No Primary Provider CHIEF COMPLAINT: Anxiousness, suicidal ideation and alcohol detox HPI: Balaji Mckeon is a 32-year-old gentleman, who receives health care through the [facility]. Patient with history of PTSD, ADD, alcohol dependence with history of alcohol withdrawal seizures in 2014. Patient reports that he had been sober for 6 years until this past spring. Patient reports that he was hospitalized at the [facility] in [place] for alcoholic withdrawal approximately 1 month ago. He reports that since discharge he initially did not drink any alcohol but over the past week he has been drinking alcohol approximately a half a liter of vodka daily. Patient reports that he wanted to get into a program to the [facility] and wanted to detox before. Patient reports having suicidal thoughts yesterday, denies any plan denies any attempt at suicide yesterday. Patient reports vomiting twice yesterdaywith a minimal amount of red color to the emesis. Patient reports she has not had any further episodes of vomiting since coming to the [facility]. Patient did not exhibit any coffee-ground [...] Yellow Yellow Clarity, Urine Clear Clear Specific [place], Urine 1.017 1.005 - 1.035 Glucose, Urine [...] of PTSD 2/2 his time in the [place]. The patient has no further complaints or [...] he last felt healthy. He is in [place] because he has been talking with the [facility]'s RRTP program with a plan to enter residential treatment after being treated for alcohol withdrawal. He brought himself to [facility] to check into the medical hospital with the goal of transitioning directly to RRTP. 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 Does not know if his jobis in [employer] at this point. He lives alone with [...] dog. Father is nearby and involved. Working horse race timer Vitals: BP 131/77 (BP position: Lying) Pulse [...] from several hours away to come to [place] with the goal of entering the treatment [...] transition directly to residential treatment at the [facility] (RRT), which would be most prudent, given [...] of this patient. Margaret Kelley MD Psychiatry [place] Suicide Risk Assessment: 03/23/2023 03/24/2023 Suicide Severity [...] Brantley RN BSN Behavioral Dysregulation/Withdrawal Specialist Ext. [phone] * Michael Washington RN - 03/25/2023 10:34 [...] questions, behaviors or concerns. Michael Washington RN, [facility] Behavioral Dysregulation/Withdrawal Specialist Ext. [phone] * Mar Cortes RN - 03/24/2023 7:06 [...] been utilized without change in symptoms. A: Preschool Teacher Aide paged Dr. Monson R: Dr. Monson ordered [...] questions, behaviors or concerns. Michael Washington RN, [facility] Behavioral Dysregulation/Withdrawal Specialist Ext. 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 The patient has no further complaints or [...] Initial Vitals BP Temp Pulse Heart Rate (director digital) Resp SpO2 O2 flow rate (LPM) O2 [...] Results Procedure - - - Date/Time ECG [[id number]] Collected: 03/23/232041 Order Status: Completed Updated: 03/23/232247 [...] consider anterior injury or acute infarct ACUTE WA / STEMI Abnormal ECG No previous ECGs available Referred By: YVONNE Electronically Signed By:BETITO HOFFMAN M.D. (EP Laboratory Results: RAINBOW DRAW Narrative The following orders were created for panel order RAINBOW DRAW. Procedure Abnormality Status --------- ------ LIGHT BLUE TUBE[[id number]] Final result LIGHT GREEN TUBE[[id number]] Final result LAVENDER TUBE[[id number]] Final result GOLD/SST TUBE[[id number]] Final result Please view results for these tests on the individual orders. COMPLETE BLOOD COUNT AND DIFFERENTIAL Narrative The following orders were created for panel order COMPLETE BLOOD COUNT AND DIFFERENTIAL. Procedure Abnormality Status --------- ------ COMPLETE BLOOD COUNT AND...[[id number]] Abnormal Final result Please view results for [...] Final Clarity, Urine Clear Clear Final Specific [place], Urine 1.017 1.005 - 1.035 Final Glucose, [...] and the provider's statements to me. 03/23/2023 [facility] EMERGENCY TRAUMA Portions of this medical record [...] observed resting between care or walking the [facility] hallway. PO intake 100% of meals. He is cooperative with staff and states his intention for alcohol treatment at the [facility] starting on Wednesday. Will staywith parents until [...] to discharge to treatment program at the [facility]. Pt was not at risk for any [...] good response. Pt has orders to discontinue director digital and to transfer to medical when bed [...] * Care Plan Note - Christiana Hernandez, Student/Clay Worker - 03/25/2023 5:36 AM CDT Pt Aox4. No complaints of pain overnight. Rested quietly most of the night. Scoring between 2-5 foralcohol withdrawal for BP, HR, and tremors. Received 1 dose of PRN pheno overnight and 2 dose of scheduled pheno. Pt not having suicidal ideation. VSS. No events noted on the director digital. Able totransfer to lower level of care [...] RN - 03/24/2023 6:12 PM CDT STATUS [id number]: Patient is vitally stable, room air, afebrile. [...] Fernandes SW - 03/24/2023 1:14 PM CDT Airport Screener Initial Assessment Reason for Social Work Consult Discharge/Transitional Care Needs Assessment Transitional Barriers: Not medically ready for discharge Interventions SW attended morning report via Teams; reviewed chart. Consulted with Psychiatry; patient is hopeful to go to [facility] Chemical Dependency treatment facility. Requested CM-A's send referral to the [facility] Chemical Dependency treatment facility. HUSSEIN attempted to call [facility] Chemical Dependency program; unable to connect; unable to leave avoicemail. HUSSEIN will attempt again tomorrow. Discharge Plan Location: Treatment Facility Services: Undetermined * Initial Assessments - Dorothy Bhatt RN - 03/24/2023 9:20 AM CDT animal care service worker Screening animal care service worker has screened the patient for current clinical risk factors that may impact care progression and transition; no needs identified at this time. animal care service worker will not follow. Please place new Care [...] LAB CHEMISTRY ORDERA BLES Performing Organization Address City/[facility]/ZIP Co de Phone Number [facility] [address] [place] [address], [place] [phone] * MAGNESIUM (03/26/2023 6:31 AM CDT) Only the most recent of4 resultswithin the time period is included. Magnesium 2.3 1.8 - 2.6 mg/dL 03/26/2023 7:42 AM CDT [facility] Blood VENOUS BLOOD / Unknown Venipuncture / Unknown 03/26/2023 6:31 AM CDT 03/26/2023 7:11 AM CDT Robles Mcmillan MD LAB CHEMISTRY OR DERABLES Performing Organization Address City/[facility]/ZIP Co de Phone Number [facility] [address] [place] [address], [place] [phone] * (ABNORMAL) BASIC METABOLIC PANEL (03/26/2023 6:31 AM CDT) Only the most recent of3 resultswithin the time period is included. Sodium 134(L) 136 - 146 mmol/L 03/26/2023 7:58 AM T [facility] Potassium 3.5 3.5 - 5.1 mmol/L 03/26/2023 7:58 AM CDT [facility] LABORATORY SERVICES [facility] Chloride 100 98 - 107 mmol/L 03/26/2023 7:58 AM CDT [facility]OR[facility]ORY SERVICES [facility] CO2 25 22 - 29 mmol/L 03/26/2023 7:58 AM T [facility] Anion Gap 12.5 10.0 - 20.0 mmol/L 03/26/2023 7:58 AM [facility] Creatinine 0.93 0.72 - 1.25 mg/dL 03/26/2023 7:58 AM T [facility] Blood Urea Nitrogen 8.5(L) 10.0 - 20.0 mg/dL 03/26/2023 7:58 AM [facility] BUN/Creatinine Ratio 9.14(L) 11.70 - 22.90 ratio 03/26/2023 7:58 AM [facility] Calcium, Total 8.9 8.6 - 10.5 mg/dL 03/26/2023 7:58 AM [facility] Glucose 113(H) 70 - 100 mg/dL 03/26/2023 7:58 AM [facility] eGFR >60 >=60 mL/min/1. 73m(2) 03/26/2023 7:58 AM [facility] Comment:Calculation based on the Chronic Kidney Disease Epidemiology Collaboration (CKD-EPI) equation refit without adjustment for race. eCrCl (Rx) - Adults 147.9 mL/min 03/26/2023 7:58 AM [facility] LABORATORY SERVICES - [facility] Blood VENOUS BLOOD / Unknown Venipuncture / Unknown 03/26/2023 6:31 AM CDT 03/26/2023 7:11 AM CDT Baldemar Monson MD LAB CHEMISTRY ORDERA BLES [facility] [address] [place] [address], [place] [phone] * (ABNORMAL) COMPREHENSIVE METABOLIC PANEL (03/25/2023 6:12 AM CDT) Sodium 134(L) 136 - 146 mmol/L 03/25/2023 6:49 AM CDT [facility] Potassium 3.8 3.5 - 5.1 mmol/L 03/25/2023 6:49 AM CDT [facility] Chloride 102 98 - 107 mmol/L 03/25/2023 6:49 AM CDT [facility]OR[facility]ORY SERVICES [facility] CO2 21(L) 22 - 29 mmol/L 03/25/2023 6:49 AM CDT [facility] Anion Gap 14.8 10.0 - 20.0 mmol/L 03/25/2023 6:49 AM CDT [facility]ORY [facility] Creatinine 0.84 0.72 - 1.25 mg/dL 03/25/2023 6:49 AM CDT [facility]OR[facility]ORY SERVICES [facility] Blood Urea Nitrogen 8.1(L) 10.0 - 20.0 mg/dL 03/25/2023 6:49 AM CDT [facility] BUN/Creatinine Ratio 9.64(L) 11.70 - 22.90 ratio 03/25/2023 6:49 AM CDT [facility] Calcium, Total 8.3(L) 8.6 - 10.5 mg/dL 03/25/2023 6:49 AM CDT [facility]ORY [facility] Glucose 113(H) 70 - 100 mg/dL 03/25/2023 6:49 AM CDT [facility] LABORATORY SERVICES [facility] eGFR >60 >=60 mL/min/1. 73m(2) 03/25/2023 6:49 AM CDT [facility] LAB[facility]ORY [facility] Comment:Calculation based on the Chronic Kidney Disease Epidemiology Collaboration (CKD-EPI) equation refit without adjustment for race. Total Protein 6.3 6.0 - 8.0 g/dL 03/25/2023 6:49 AM CDT [facility] Albumin 3.5 3.5 - 5.0 g/dL 03/25/2023 6:49 AM CDT [facility] Globulin 2.8 2.0 - 3.5 g/dL 03/25/2023 6:49 AM CDT [facility] Albumin/Globulin Ratio 1.3 1.0 - 2.0 03/25/2023 6:49 AM CDT [facility] Aspartate Aminotransferase (AST) 182(H) 5 - 41 U/L 03/25/2023 6:49 AM CDT [facility] Alanine Aminotransferase (ALT) 238(H) 8 - 45 U/L 03/25/2023 6:49 AM CDT [facility] Alkaline Phosphatase 62 50 - 136 U/L 03/25/2023 6:49 AM CDT [facility] Bilirubin, Total 1.4(H) 0.2 - 1.2 mg/dL 03/25/2023 6:49 AM CDT [facility] eCrCl (Rx) - Adults 165.4 mL/min 03/25 6:49 AM CDT [facility] Blood VENOUS BLOOD / Unknown Venipuncture / Unknown 03/25/2023 6:12 AM CDT 03/25/2023 6:19 AM CDT Baldemar Monson MD LAB CHEMISTRY ORDERA BLES [facility] [address] [place] [address], [place] [phone] * LEUKOCYTE COUNT/HEMOGLOBIN/PLATELET COUNT (03/25/2023 6:12 AM CDT) WBC Count, Corrected 6.8 3.9 - 11.9 10(3)/uL 03/25/2023 8:35 AM CDT [facility] Hemoglobin 15.2 13.1 - 17.1 g/dL 03/25/2023 8:35 AM CDT [facility] Platelets 191 179 - 450 10(3)/uL 03/25/2023 8:35 AM CDT [facility] Blood VENOUS BLOOD / Unknown Venipuncture / Unknown 03/25/2023 6:12 AM CDT 03/25/2023 6:19 AM CDT Baldemar Monson MD LAB HEMATOLOGY ORDER TASHA Performing Organization Address City/[facility]/ZIP Co de Phone Number [facility] [address] [place] [address], * CARDIAC RHYTHM STRIP (03/24/2023 8:00 PM CDT) Only the most recent of2 resultswithin the time period is included. 03/24/2023 8:00 PM CDT Narrative TERESA - 03/24/2023 8:00 PM CDT CA 0.17 QRS 0.10 QT 0.38 Baldemar Monson MD ECG Performing Organization Address City/[facility]/ZIP Co de Phone Number TERESA * (ABNORMAL) PLATELET COUNT (03/24/2023 1:05 PM CDT) Platelets 122(L) 179 - 450 10(3)/uL 03/24/2023 1:24 PM CDT [facility] Blood VENOUS BLOOD / Unknown Venipuncture / Unknown 03/24/2023 1:05 PM CDT 03/24/2023 1:15 PM CDT Baldemar Monson MD LAB HEMATOLOGY ORDER TASHA [facility] [address] [place] [address], [place] [phone] * HEPATITIS A AB, IGM (03/24/2023 1:05 PM CDT) Pathologist [facility] Hepatitis A Ab, IgM Negative Negative 03/25/2023 9:32 AM CDT [facility] Comment: Result does not exclude the possibility of exposure to hepatitis A virus. ??Antibody level during early infection stage may be below the limit of detection of the assay. Test Performed by: [address] [address] Manager Of Training And Development: Mason Ho M.D. Ph.D.; CLIA# [id number] Blood VENOUS BLOOD / Unknown Venipuncture / Unknown 03/24/2023 1:05 PM CDT 03/24/2023 1:14 PM CDT Baldemar Monson MD LAB SEROLOGY ORDERAB LES Performing Organization Address City/[facility]/ZIP Co de Phone Number [address] [address], [place] [phone] * HEPATITIS C AB (03/24/2023 1:05 PM CDT) [facility] HCV Ab Nonreactive Nonreactive 03/24/2023 2:09 PM CDT [facility] Comment:Interpretation: Anti bodies to HCV were not detected; does not exclude the possibility of exposure to HCV. Blood VENOUS BLOOD / Unknown Venipuncture / Unknown 03/24/2023 1:05 PM CDT 03/24/2023 1:14 PM CDT Baldemar Monson MD LAB SEROLOGY ORDERAB LES [facility] [address] [place] [address], [place] [phone] * HEPATITIS B CORE AB, IGM (03/24/2023 1:05 PM CDT) Pathologist [facility] Hepatitis B Core Ab, IgM Nonreactive Nonreactive, Equivocal 03/24/2023 2:09 PM CDT [facility] Blood VENOUS BLOOD / Unknown Venipuncture / Unknown 03/24/2023 1:05 PM CDT 03/24/2023 1:14 PM CDT Baldemar Monson MD LAB SEROLOGY ORDERAB LES Performing Organization Address City/[facility]/ZIP Co de Phone Number [facility] [address] [place] [address], [place] [phone] * HEPATITIS B SURFACE AG (03/24/2023 1:05 PM CDT) Pathologist [facility] Hepatitis B Surface Ag Nonreactive Nonreactive 03/24/2023 2:09 PM CDT [facility] Blood VENOUS BLOOD / Unknown Venipuncture / Unknown 03/24/2023 1:05 PM CDT 03/24/2023 1:14 PM CDT Baldemar Monson MD LAB SEROLOGY ORDERAB LES Performing Organization Address City/[facility] Co de Phone Number [facility] [address] [place] [address], [place] [phone] * (ABNORMAL) LIVER FUNCTION PANEL (03/24/2023 8:04 AM CDT) Only the most recent of2 resultswithin the time period is included. Pathologist [facility] Albumin 3.5 3.5 - 5.0 g/dL 03/24/2023 8:31 AM CDT [facility]ORY [facility] Total Protein 6.1 6.0 - 8.0 g/dL 03/24/2023 8:31 AM CDT [facility] Globulin 2.6 2.0 - 3.5 g/dL 03/24/2023 8:31 AM CDT [facility] Albumin/Globulin Ratio 1.3 1.0 - 2.0 03/24/2023 8:31 AM CDT [facility] Aspartate Aminotransferase (AST) 324(H) 5 - 41 U/L 03/24/2023 8:31 AM [facility] Alanine Aminotransferase (ALT) 333(H) 8 - 45 U/L 03/24/2023 8:31 AM CDT [facility] Alkaline Phosphatase 65 50 - 136 U/L 03/24/2023 8:31 AM CDT [facility] Bilirubin, Total 1.5(H) 0.2 - 1.2 mg/dL 03/24/2023 8:31 AM CDT [facility] Bilirubin, Indirect 1.2(H) 0.0 - 0.7 mg/dL 03/24/2023 8:31 AM CDT [facility] Bilirubin, Direct 0.3 0.0 - 0.5 mg/dL 03/24/2023 8:31 AM CDT [facility] Blood VENOUS BLOOD / Unknown Venipuncture / Unknown 03/24/2023 8:04 AM CDT 03/24/2023 8:07 AM CDT Robles Mcmillan MD LAB CHEMISTRY OR DERABLES Performing Organization Address City/[facility]/ZIP Co de Phone Number [facility] [address] [place] [address], [place] [phone] * HEMOGLOBIN (03/24/2023 8:03 AM CDT) Hemoglobin 15.7 13.1 - 17.1 g/dL 03/24/2023 8:16 AM CDT [facility] Blood VENOUS BLOOD / Unknown Venipuncture / Unknown 03/24/2023 8:03 AM CDT 03/24/2023 8:07 AM CDT Robles Mcmillan MD LAB HEMATOLOGY O RDERABLES Performing Organization Address City/[facility]/ZIP Co de Phone Number [facility] [address] [place] [address], [place] [phone] * US ABD RUQ (03/24/2023 7:43 AM CDT) Anatomical Region Laterality Modality Abdomen Ultrasound 03/24/2023 7:56 AM CDT Narrative 03/24/2023 7:58 AM CDT EXAM: US ABD RUQ INDICATION: Elevated LFTs. COMPARISON: None available. FINDINGS: The gallbladder is mildly distended with wall measuring at the upper limits of normal; however, there is no pericholecystic fluid and per the media analytics manager support sonographic Sanders sign was negative. ??The [...] Seen, 1-2 /HPF 03/24/2023 12:33 AM CDT [facility] WBC, Urine None Seen None Seen, 1-5 /HPF 03/24/2023 12:33 AM CDT [facility] Bacteria, Urine None Seen None Seen, Few /HPF 03/24/2023 12:33 AM CDT [facility] Squamous Epithelial Cells, Urine None Seen None Seen, 1-5 /HPF 03/24/2023 12:33 AM CDT [facility] LABORATORY SERVICES [facility] Mucus, Urine Occasional (A) None Seen /HPF 03/24/2023 12:33 AM CDT [facility] Urine URINE SPECIMEN OBTAINED BY CLEAN CATCH PROCEDURE / Unknown Non-blood Collection / Unknown 03/24/2023 12:18 AM CDT 03/24/2023 12:21 AM CDT Corey Reza MD LAB URINE ORDERABLES Performing Organization Address City/State/[facility] Co de Phone Number [facility] [address] [place] [address], * (ABNORMAL) DRUGS OF ABUSE SCREEN, URINE (03/24/2023 12:18 AM CDT) Amphetamines, Qualitative, Urine Negative Negative 03/24/2023 12:35 AM [facility]T [facility] Barbiturates, Qualitative, Urine Negative Negative 03/24/2023 12:35 AM CDT [facility] Benzodiazepines, Urine Negative Negative 03/24/2023 12:35 AM CDT [facility] Buprenorphine, Urine Negative Negative 03/24/2023 12:35 AM CDT [facility] Cocaine, Urine Negative Negative 03/24/2023 12:35 AM CDT [facility]ORY [facility] Methadone, Qualitative, Urine Negative Negative 03/24/2023 12:35 AM CDT [facility] Methamphetamine, Qualitative, Urine Negative Negative 03/24/2023 12:35 AM T [facility] Opiates, Urine Negative Negative 03/24/2023 12:35 AM [facility] Oxycodone, Urine Qualitative, Urine Negative Negative 03/24/2023 12:35 AM T [facility] Phencyclidine, Urine Negative Negative 03/24/2023 12:35 AM T [facility] Propoxyphene, Urine Qualitative, Urine Negative Negative 03/24/2023 12:35 AM T [facility] THC Cannabinoids, Urine Positive(A) Negative 03/24/2023 12:35 AM [facility] Comment:Presumptive Positive - This specimen was tested with a urine drug screen device and has a presumptive positive finding. Screening tests can yield false positive results due to their sensitivity and cross-reactivity with other drug classes. Please order follow-up confirmatory testing if needed. Tricyclic Antidepressants, Qualitative, Urine Negative Negative 03/24/2023 12:35 AM [facility] Urine SPOT URINE SPECIMEN / Unknown Non-blood Collection / Unknown 03/24/2023 12:18 AM CDT 03/24/2023 12:21 AM T [facility] - 03/24/2023 12:35 AM CDT Screening Thresholds [...] MD LAB URINE ORDERABLES Performing Organization Address City/[facility]/ZIP Co de Phone Number [facility] [address] [place] [address], [place] [phone] * URINE CULTURE (03/24/2023 12:18 AM CDT) Culture No growth 03/25/2023 6:33 AM CDT [facility] Urine URINE SPECIMEN OBTAINED BY CLEAN CATCH PROCEDURE / Unknown Non-blood Collection / Unknown 03/24/2023 12:18 AM CDT 03/24/2023 12:21 AM CDT Corey Reza MD LAB MICROBIOLOGY ORD ERABLES Performing Organization Address [facility]/ZIP Co de Phone Number [facility] [address] [place] [address], [place] [phone] * (ABNORMAL) URINALYSIS WITH REFLEX TO MICROSCOPIC (03/24/2023 12:18 AM CDT) Color, Urine Light Yellow Yellow 03/24/2023 12:28 AM CDT [facility]ORATORY [facility] Clarity, Urine Clear Clear 03/24/2023 12:28 AM CDT [facility]ORY [facility] Specific [place], Urine 1.017 1.005 - 1.035 03/24/2023 12:28 AM CDT [facility] Glucose, Urine Negative Negative 03/24/2023 12:28 AM CDT [facility] Bilirubin, Urine Negative Negative 03/24/2023 12:28 AM CDT [facility] Ketone, Urine Trace(A) Negative 03/24/2023 12:28 AM CDT [facility] Blood, Urine 1+(A) Negative 03/24/2023 12:28 AM CDT [facility] pH, Urine 6.0 5.0 - 8.5 pH 03/24/2023 12:28 AM CDT [facility] Protein, Urine Trace(A) Negative 03/24/2023 12:28 AM CDT [facility]ORY [facility] Urobilinogen, Urine <2.0 <2.0 EU/dL 03/24/2023 12:28 AM CDT [facility] Nitrite, Urine Negative Negative 03/24/2023 12:28 AM CDT [facility] Leukocyte Esterase, Urine Negative Negative 03/24/2023 12:28 AM CDT [facility]ORY [facility] Urine URINE SPECIMEN OBTAINED BY CLEAN CATCH PROCEDURE / Unknown Non-blood Collection / Unknown 03/24/2023 12:18 AM CDT 03/24/2023 12:21 AM CDT Corey Reza MD LAB URINE ORDERABLES Performing Organization Address City/[facility]/ZIP Co de Phone Number [facility] [address] [place] [address], [place] [phone] * TROPONIN I (03/23/2023 10:17 PM CDT) Troponin I 0.01 <=0.04 ng/mL QUEZADA CANE CUTTER [id number] 03/24/2023 5:30 AM CDT [facility] Comment: 99% Reference Value: <0.04 ng/mL Assay Diagnostic Reference Range: <0.3 ng/mL ALL Troponin I values above the 99% reference value are reported as abnormal. Blood VENOUS BLOOD / Unknown Venipuncture / Unknown 03/23/2023 10:17 PM CDT 03/23/2023 10:22 PM CDT Robles Mcmillan MD LAB CHEMISTRY OR DERABLES Performing Organization Address City/[facility]/ZIP Co de Phone Number [facility] [address] [place] [address], [place] [phone] * LIPASE (03/23/2023 10:17 PM CDT) Lipase 69 8 - 78 U/L 03/24/2023 1:50 AM CDT [facility] Blood VENOUS BLOOD / Unknown Venipuncture / Unknown 03/23/2023 10:17 PM CDT 03/23/2023 10:22 PM CDT Robles Mcmillan MD LAB CHEMISTRY OR DERABLES [facility]ATORY [facility] [address] [place] [address], [place] [phone] * (ABNORMAL) COMPLETE BLOOD COUNT AND DIFFERENTIAL (03/23/2023 10:17 PM CDT) WBC Count, Corrected 7.8 3.9 - 11.9 10(3)/uL 03/23/2023 10:32 PM CDT [facility]ORY [facility] RBC Count 5.86(H) 4.08 - 5.79 10(6)/uL 03/23/2023 10:32 PM CDT [facility] Hemoglobin 18.2(H) 13.1 - 17.1 g/dL 03/23/2023 10:32 PM CDT [facility] Hematocrit 51.5(H) 38.7 - 51.4 % 03/23/2023 10:32 PM CDT [facility] MCV 87.9 82.9 - 100.6 fL 03/23/2023 10:32 PM CDT [facility] MCH 31.2 27.6 - 33.2 pg 03/23/2023 10:32 PM CDT [facility] LABORATORY SERVICES [facility] MCHC 35.4 32.0 - 36.0 g/dL 03/23/2023 10:32 PM CDT [facility] RDW 13.6 10.0 - 16.2 % 03/23/2023 10:32 PM CDT [facility] Platelets 168(L) 179 - 450 10(3)/uL 03/23/2023 10:32 PM CDT [facility] MPV 7.8 7.4 - 10.4 fL 03/23/2023 10:32 PM CDT [facility] LABORATORY SERVICES [facility] % Neutrophils 54.0 43.0 - 80.0 % 03/23/2023 10:32 PM CDT [facility] % Lymphocytes 40.7 16.0 - 49.0 % 03/23/2023 10:32 PM CDT [facility] % Monocytes 4.4 0.0 - 10.0 % 03/23/2023 10:32 PM CDT [facility] % Eosinophils 0.3 0.0 - 7.0 % 03/23/2023 10:32 PM CDT [facility] % Basophils 0.6 0.0 - 2.0 % 03/23/2023 10:32 PM CDT [facility] Abs Neutrophils 4.2 1.6 - 8.1 10(3)/uL 03/23/2023 10:32 PM CDT [facility]ORY SERVICES [facility] Abs Lymphocytes 3.2 0.9 - 3.5 10(3)/uL 03/23/2023 10:32 PM CDT [facility]ORATORY SERVICES [facility] Abs Monocytes 0.3 0.0 - 1.1 10(3)/uL 03/23/2023 10:32 PM CDT [facility] LABORATORY SERVICES [facility] Abs Eosinophils 0.0 0.0 - 0.8 10(3)/uL 03/23/2023 10:32 PM CDT [facility] Abs Basophils 0.0 0.0 - 0.2 10(3)/uL 03/23/2023 10:32 PM CDT [facility] LABORATORY SERVICES [facility] Blood VENOUS BLOOD / Unknown Venipuncture / Unknown 03/23/2023 10:17 PM CDT 03/23/2023 10:22 PM CDT Corey Reza MD LAB HEMATOLOGY ORDER TASHA [facility]ORY [facility] [address] [place] [address], [place] [phone] * PROTHROMBIN TIME AND INR (03/23/2023 10:17 PM CDT) Prothrombin Time 12.0 9.4 - 12.5 sec 03/23/2023 10:30 PM CDT [facility] INR 1.0 0.9 - 1.1 INR 03/23/2023 10:30 PM CDT [facility] Comment: Common Recommended Therapeutic Ranges: INR Standard: ??2.0-3.0 INR High Intensity: ??2.5-3.5 Blood VENOUS BLOOD / Unknown Venipuncture / Unknown 03/23/2023 10:17 PM CDT 03/23/2023 10:22 PM CDT Corey Reza MD LAB HEMATOLOGY ORDER TASHA [facility] [address] [place] [address], [place] [phone] * (ABNORMAL) ETHANOL (03/23/2023 10:17 PM CDT) Pathologist [facility] Ethanol 388(H) <=10 mg/dL 03/23/2023 10:45 PM CDT [facility] LAB[facility]ORY [facility] Comment:This test was perfor med to aid in medical decision making. It is not approved for legal or forensic uses. Ethanol 0.39 % 03/23/2023 10:45 PM CDT [facility] Blood VENOUS BLOOD / Unknown Venipuncture / Unknown 03/23/2023 10:17 PM CDT 03/23/2023 10:22 PM CDT Narrative [facility]ORY [facility] - 03/23/2023 10:45 PM CDT Increased levels of Lactate and LDH may cause elevated Ethyl Alcohol results. Corey Reza MD LAB CHEMISTRY ORDERA BLES [facility] [address] [place] [address], [place] [phone] * GOLD/SST TUBE (03/23/2023 10:17 PM CDT) Blood VENOUS BLOOD / Unknown Venipuncture / Unknown 03/23/2023 10:17 PM CDT 03/23/2023 10:22 PM CDT Juan Ramon Gan DO LAB CHEMISTR Y ORDERABLES Performing Organization Address [facility] Co de Phone Number [facility] [address] [place] [address], * LIGHT GREEN TUBE (03/23/2023 10:17 PM CDT) Blood VENOUS BLOOD / Unknown Venipuncture / Unknown 03/23/2023 10:17 PM CDT 03/23/2023 10:22 PM CDT Juan Ramon Gan DO LAB CHEMISTR Y ORDERABLES Performing Organization Address [facility] Co de Phone Number [facility] [address] [place] [address], * LIGHT BLUE TUBE (03/23/2023 10:17 PM CDT) Blood VENOUS BLOOD / Unknown Venipuncture / Unknown 03/23/2023 10:17 PM CDT 03/23/2023 10:22 PM CDT Juan Ramon Gan DO LAB CHEMISTR Y ORDERABLES Performing Organization Address [facility] Co de Phone Number [facility] [address] [place] [address], * ECG (03/23/2023 8:42 PM CDT) 03/23/2023 [...] consider anterior injury or acute infarct ACUTE [place] / STEMI Abnormal ECG No previous ECGs [...] documented as of this encounter Care Teams Family Literacy Coordinator Relationship Specialty Start Date End Date Provider, No Primary . BOB [place] [id number] PCP - General 03/23/23 documented as of this encounter Additional Source Comments PLEASE NOTE: Replies to this message will not be received.[facility]
--- OUTSIDE RECORDS SUMMARY | 2023-07-11 19:36 | XMS_ITS | Encounter Summary ---
Author Name Unknown Organization [facility] [facility] Address [address] [place] [id number] Care Team Providers Care Repairer Helper Name Role Phone Provider, No Primary Primary [...] on filedocumented in this encounter Care Teams Repairer Helper Relationship Specialty Start Date End Date Provider, [place] [address] PCP - General 03/23/23 documented as of this encounter Additional Source Comments PLEASE NOTE: Replies to this message will not be received.[facility] and [facility]
--- OUTSIDE RECORDS SUMMARY | 2023-07-11 19:36 | XMS_ITS | Encounter Summary ---
Author Name Unknown Organization [facility] Address [address] [place] [address] Care Team Providers Care Power Driven Brush Maker Name Role Phone Feliciano Dexter MD Primary Care Provider [phone] Reason for Visit * Reason Comments Refill Encounter Details Date Type Department Care Team Description 09/24/2022 Refill [facility] Medicine [address] [place] [address] [phone] Feliciano Dexter MD [address] [place] [address] [phone] Refill Social History Tobacco Use Types Packs/Day [...] find out if he has another at [facility], as [facility] [...] hyperactivity documented in this encounter Care Teams Power Driven Brush Maker Relationship Specialty [place] [address] [address] [place] [address] PCP - General Family Practice 02/22/17 documented as of this encounter
--- OUTSIDE RECORDS SUMMARY | 2023-07-11 19:36 | XMS_ITS | Encounter Summary ---
Author Name Unknown Organization [facility] Address [address] [place] [address] Care Team Providers Care Art Psychotherapist Name Role Phone Feliciano Dexter MD Primary Care Provider [phone] Reason for Visit * Reason Comments Medication Refill Question Encounter Details Date Type Department Care Team Description 09/04/2022 Telephone [place] [id number] [place] [address] [place] [address] [place], [place] [id number] Medication Refill Question Social History Tobacco Use [...] PM CDT Adderall XR script sent to [facility] * Makayla Foley RN - 09/04/2022 4:01 PM CDT Further Assistance Needed on Refill from Clinician RN reviewed. Medication not listed on standing order. Patient asking for this to be sent to [facility]-he verified they do have stock in today. [...] take it? Twice daily Who prescribed it? Felciiano Dexter MD If a prescription is needed, [...] hyperactivity documented in this encounter Care Teams Art Psychotherapist Relationship Specialty [place] [address] [facility] [place] [address] PCP - General Family Practice 02/22/17 documented as of this encounter
[2023-07-11] MEDS: LACTATED RINGERS 1000 ML 1,000 ML IV (19:40)
[2023-07-11] MEDS: THIAMINE 100 MG TABLET PO ×2 (19:40→22:01)
[2023-07-11 19:41] LABS: Acetaminophen* < 10.0 ug/mL (10.0-30.0); Salicylate* < 1.0 mg/dL (1.0-10)
[2023-07-11 19:42] LABS: Ethanol* 0.34 % (0.01-0.03)
[2023-07-11] MEDS: ONDANSETRON 2 MG/ML inj 4 MG IVP (20:03)
[2023-07-11 20:32] LABS: Amphetamine Screen Urine Negative (Negative); Barbiturate Screen Urine Negative (Negative); Benzodiazepines Screen Urine Negative (Negative); Cannabinoid Screen Urine POSITIVE (Negative); Cocaine Screen Urine Negative (Negative); Methadone Screen Urine Negative (Negative); Methamphetamines Screen Urine Negative (Negative); Opiate Screen Urine Negative (Negative); Oxycodone Screen Urine Negative (Negative); Phencyclidine Screen Urine Negative (Negative); Tricyclic Antidepressant Urine Negative (Negative)
[2023-07-11 20:34] LABS: Magnesium* 2.3 mg/dL (1.5-2.6)
--- NOTE | 2023-07-11 20:51 | PM.IMHP1 ---
Hospitalist- H&P: HPI History of Present Illness Date Seen: 07/11/23 Chief complaint: Alcohol withdrawls Narrative: Balaji Mckeon is a 33 year old male admitted through the emergency department with concern for alcohol withdrawal. he had his last drink today around 11:00 a.m.. He reports nausea and tremulousness. He is not eating much. He is not vomiting. Patient has approximately 10 year history of alcoholism. He [facility] [place] [facility] times. The 1st was in 2016. This was followed by 6 and half years of sobriety. He then went back in to alcohol treatment at [place] in November of 2022. He then had yet another course of treatment there from March 2023 to 05/14/2023. He maintain sobriety and till after 2022 when he began to drink heavily again. He was seen in our emergency room on June 15 reporting withdrawal symptoms and anxiety as he was trying to go through withdrawal at home. He was discharged from the emergency department with supplemental potassium. He reports he was able to maintain sobriety through the rest of June until a couple days ago when he started to drink heavily again. Today he tells me he is drinking about 1 L of vodka a day. He has had problems with alcohol withdrawal in the past including hallucinations and alcohol withdrawal seizures. He denies other medical problems other than his alcohol use disorder. He reports regularly using marijuana. He denies other substances of abuse. In reviewing old records I see that he was hospitalized at [facility] in 2013 for 5 days with psychosis, alcohol dependence and amphetamine abuse. During that hospital stay his psychosis resolved. He reports ongoing relationship with a therapist and a psychiatrist through the [facility]. he reports he can continue to get support through the [facility] for his recovery. Review of Systems Narrative: Patient reports no recent illness except as noted above. family history: Father has history of multiple strokes, myocardial infarction, depression, diabetes [facility] Medical History (Updated 07/11/23 @ 21:07 by Feliciano Pickering MD) Alcohol use disorder ?F10.90 - Alcohol use, unspecified, uncomplicated (ICD-10) Family History (Updated 07/11/23 @ 21:00 by Feliciano Pickering MD) Other Cardiovascular disease Diabetes Stroke Social History (Updated 07/11/23 @ 21:02 by Feliciano Pickering MD) Narrative: patient lives alone in [place]. He is . He has a 10-year-old daughter that he sees on a regular schedule. 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 He is a and gets medical care through the [facility]. Smoking Status: Unknown if ever smoked How often do you have a drink containing alcohol: 4 or more times a week How many standard drinks containing alcohol do you have on a typical day: 10 or more How often do you have six or more drinks on one occasion: Never AUDIT-C Alcohol total score: 8 Non-prescribed substance use: denies use service: Yes Meds Home Medications and Allergies Home Medication Comments: daily multivitamin Allergies Allergy/AdvReac Type Severity Reaction Status Date / Time No Known Drug Allergies Allergy Verified 06/15/23 21:49 Exam Narrative: Exam Narrative: he is alert and appears in no distress. Not currently anxious or tremulous. He gives his own history. Speech is fluent. Mood and affect are appropriate and congruent. No hallucinations or delusions. Pleasant and cooperative. Head is without apparent trauma. Eyes are normal. Extraocular movements are full. Visual ibarra are intact. No facial asymmetry. Oropharynx is normal. Neck is supple without mass or adenopathy. Respirations are clear to auscultation. Cardiovascular: S1, S2, regular rate and rhythm. Abdomen: Bowel sounds active. Abdomen is soft without tenderness or mass. Extremities with intact pulses and strength in all 4 extremities. [id number] is normal. No significant tremor noted. Const: Vital Signs, click to edit/add: Vital Signs - 24 hr 07/11/23 18:41 07/11/23 18:51 07/11/23 19:00 Temperature 97.9 F Pulse Rate Pulse Rate [Pulse Oximeter] 140 H Respiratory Rate 20 Blood Pressure Blood Pressure [Ri ght Upper Arm] 143/104 H 135/88 Pulse Oximetry 95 92 Oxygen Delivery Me thod Room Air 07/11/23 19:09 07/11/23 19:15 07/11/23 19:30 Temperature Pulse Rate 109 H 125 H 112 H Pulse Rate [Pulse Oximeter] Respiratory Rate Blood Pressure Blood Pressure [Ri ght Upper Arm] Pulse Oximetry 91 91 94 Oxygen Delivery Me thod 07/11/23 19:32 07/11/23 19:45 07/11/23 20:00 Temperature Pulse Rate 114 H 110 H 113 H Pulse Rate [Pulse Oximeter] Respiratory Rate Blood Pressure 122/79 Blood Pressure [Ri ght Upper Arm] Pulse Oximetry 94 93 96 Oxygen Delivery Me thod 07/11/23 20:02 07/11/23 20:15 Temperature Pulse Rate 110 H 113 H Pulse Rate [Pulse Oximeter] Respiratory Rate Blood Pressure 113/89 Blood Pressure [Ri ght Upper Arm] Pulse Oximetry 96 95 Oxygen Delivery Me thod Documenting provider has reviewed patient's vital signs: yes Hospitalist - H&P: Result Labs Labs: Short CBC 07/11/23 Range/Units 18:55 WBC 8.75 (4.50-11.00) K/uL Hgb 17.1 (13.5-17.5) gm/dL Hct 48.0 (37.0-53.0) % Plt Count 313 (140-440) K/uL BMP 07/11/23 18:55 Sodium 138 Potassium 3.7 Chloride 100 Carbon Dioxide 18 L BUN 23 Creatinine 0.9 Glucose 208 H Calcium 8.0 L Liver Function 07/11/23 Range/Units 18:55 Total Bilirubin 0.6 (0.1-1.5) mg/dL Direct Bilirubin 0.2 (0.0-0.5) mg/dL AST 44 H (12-35) U/L ALT 39 (4-50) U/L Alkaline Phosphatase 69 (40-150) U/L Albumin 4.5 (3.3-5.0) g/dL Assessment and Plan Assessment and plan (1) Alcohol withdrawal syndrome: Problem comment: Currently having mild alcohol withdrawal with an alcohol level is 0.34. This is concerning for possible severe alcohol withdrawal. Will use CIWA protocol and phenobarb Status: Acute (2) Alcohol use disorder: Problem comment: [facility] Status: Acute Plan patient is admitted to the hospital for managing alcohol withdrawal total time spent today is 70 minutes, 40 minutes in coordination of care discussing with patient, mother and other providers ongoing management of alcohol withdrawal
[2023-07-11] MEDS: PHENobarbitaL 32.4 MG TABLET 324 MG PO (21:19)
[2023-07-11] MEDS: 5 % DEXTROSE IN LAC RINGER'S 1,000 ML 125 ML IV (21:24)
[2023-07-11] MEDS: SODIUM CHLORIDE 0.9 % (FLUSH) 10 ML SYRINGE 5 ML IVF (21:25)
[2023-07-11] MEDS: LORazepam 1 MG TABLET PO (22:01)
[2023-07-12] VITALS (11 sets, daily range): BP systolic 104–149; BP diastolic 64–98; PULSE 84–119; RESP 16–18; TEMP 36.7–37.7; O2SAT 90–98
[2023-07-12] MEDS: PHENobarbitaL 32.4 MG TABLET 194.4 MG PO ×2 (01:16→05:02)
[2023-07-12] MEDS: LORazepam 1 MG TABLET PO ×2 (03:48→07:56)
[2023-07-12] MEDS: 5 % DEXTROSE IN LAC RINGER'S 1,000 ML 125 ML IV ×2 (05:01→13:00)
--- NOTE | 2023-07-12 06:08 | PC.NURSE ---
Shift note: A 33-year-old young man was admitted to the unit through the ER. Pt was brought to the unit on a wheelchair accompanied by mother and a staff from ER (RN). Alert and oriented on arrival but has hiccups, anxiety, and complained of nausea, headache and abdominal discomfort. CIWA on admission was 9 and per protocol, Ativan 1mg was given. Vital signs were checked and recorded as per chart. Pt asked for snacks, applesauce, apple juice and Phil crackers were given. Had an unwitnessed vomiting after the snacks. Pt confirmed feeling relieved after the vomiting and fell asleep for about 3 hours. Pt had another vomiting episode at 0230. CIWA at the time was 12 and Ativan 2mg was given per protocol. HR has been above 100 for most of the shift. Pt appears lethargic but denied headache and anxiety this AM. CIWA repeated at 0600 was 4. No seizure was observed. Tolerated oral medications very well. Ambulated independently in room with SBA.
[2023-07-12] MEDS: MULTIVITAMIN/MINERALS 1 TABLET 1 TAB PO (07:56)
[2023-07-12] MEDS: SODIUM CHLORIDE 0.9 % (FLUSH) 10 ML SYRINGE 5 ML IVF (07:57)
[2023-07-12] MEDS: FOLIC ACID 1 MG TABLET PO (07:57)
--- NOTE | 2023-07-12 10:15 | PM.IMPN1 ---
Progress Note: A&P Assessment and plan (1) Alcohol withdrawal syndrome: Problem details: -scheduled phenobarbital regimen over the next 7 days -Ativan prn for breakthrough symptoms -IV thiamine, hold oral MVM and folic acid until nausea has improved -IV Zofran for nausea Status: Acute (2) Elevated lactic acid level: Problem details: -IV fluid bolus Status: Acute (3) Hypocalcemia: Problem details: -replace IV 2/5 -follow as etoh is metabolized and regular diet can be pursued Status: Acute (4) Transaminitis: Problem details: mild related to etoh use Status: Acute (5) Alcohol use disorder: Problem details: -[facility] Status: Acute Subjective Date Seen: 07/12/23 Interval history: Daily Progress Note - Hospital Medicine Day #: 2 CC: alcohol intoxication with withdrawal management. OVERNIGHT UPDATES FROM STAFF & MED, LAB, IMAGING UPDATES -came in intoxicated at BAL of 0.34 (6:55 pm on 07/11). last drink was 11 am on 07/11. -nauseated and vomiting overnight -no IV meds (zofran, ativan) given - only ORAL thiamine, ativan and phenobarbital given -patient awake this am - feels tired, groggy and nauseated - threw up after trying toast. +headache. -less tachy. vitals stable. RN: Shift note: A 33-year-old young man was admitted to the unit through the ER. Pt was brought to the unit on a wheelchair accompanied by mother and a staff from ER (RN). Alert and oriented on arrival but has hiccups, anxiety, and complained of nausea, headache and abdominal discomfort. CIWA on admission was 9 and per protocol, Ativan 1mg was given. Vital signs were checked and recorded as per chart. Pt asked for snacks, applesauce, apple juice and Phil crackers were given. Had an unwitnessed vomiting after the snacks. Pt confirmed feeling relieved after the vomiting and fell asleep for about 3 hours. Pt had another vomiting episode at 0230. CIWA at the time was 12 and Ativan 2mg was given per protocol. HR has been above 100 for most of the shift. Pt appears lethargic but denied headache and anxiety this AM. CIWA repeated at 0600 was 4. No seizure was observed. Tolerated oral medications very well. Ambulated independently in room with SBA. He has had problems with alcohol withdrawal in the past including hallucinations and alcohol withdrawal seizures. No labs were drawn this morning, reviewing admission labs notes a mild acidosis with a CO2 of 18, anion gap of 20. No pH was drawn. Glucose was greater than 200. Lactate was greater than 4.4. MAR review shows 1 L of normal saline, 1 L of LR infused last evening. D5 LR running at 1:25 a.m. since admission. He has received oral thiamin, phenobarbital and lorazepam. His alcohol level was 0.34 on admission CBC last evening 07/11 was unremarkable. Objective: tired, disheveled. Vitals: see above Lungs: Clear. Cardiac: S1S2. Abdomen: benign. Disposition/Potential discharge - Likely to return to previous living situation vs acute rehab. Today I spent 50minutes seeing the patient, reviewing Expanse and EPIC notes/diagnostics, discussing the care plan with our care time that includes social work, PT/OT, pharmacy, RT, custodial and documenting my impressions and plan in the medical record. Alcohol 20506 >30 mins. We went over all the stigmata of alcoholism I see in this patient. I discussed the effects of chronic alcohol on the brain, liver, and heart. I recommended complete abstinence from alcohol and instructed on programs available at discharge from acute care. Exam Const: Vital Signs, click to edit/add: Vital Signs - 24 hr 07/11/23 18:41 07/11/23 18:51 07/11/23 19:00 Temperature 97.9 F Pulse Rate Pulse Rate [Pulse Oximeter] 140 H Pulse Rate [Right Pulse Oximeter] Respiratory Rate 20 Blood Pressure Blood Pressure [Ri ght Arm] Blood Pressure [Ri ght Upper Arm] 143/104 H 135/88 Pulse Oximetry 95 92 Oxygen Delivery Me thod Room Air 07/11/23 19:09 07/11/23 19:15 07/11/23 19:30 Temperature Pulse Rate 109 H 125 H 112 H Pulse Rate [Pulse Oximeter] Pulse Rate [Right Pulse Oximeter] Respiratory Rate Blood Pressure Blood Pressure [Ri ght Arm] Blood Pressure [Ri ght Upper Arm] Pulse Oximetry 91 91 94 Oxygen Delivery Me thod 07/11/23 19:32 07/11/23 19:45 07/11/23 20:00 Temperature Pulse Rate 114 H 110 H 113 H Pulse Rate [Pulse Oximeter] Pulse Rate [Right Pulse Oximeter] Respiratory Rate Blood Pressure 122/79 Blood Pressure [Ri ght Arm] Blood Pressure [Ri ght Upper Arm] Pulse Oximetry 94 93 96 Oxygen Delivery Me thod 07/11/23 20:02 07/11/23 20:15 07/11/23 21:16 Temperature 98.7 F Pulse Rate 110 H 113 H Pulse Rate [Pulse Oximeter] Pulse Rate [Right Pulse Oximeter] 105 H Respiratory Rate 18 Blood Pressure 113/89 Blood Pressure [Ri ght Arm] 136/95 H Blood Pressure [Ri ght Upper Arm] Pulse Oximetry 96 95 93 Oxygen Delivery Me thod Room Air 07/11/23 21:16 07/11/23 21:18 07/11/23 21:53 Temperature 97.9 F 97.9 F 97.9 F Pulse Rate Pulse Rate [Pulse Oximeter] 140 H Pulse Rate [Right Pulse Oximeter] 105 H 105 H Respiratory Rate 20 20 20 Blood Pressure Blood Pressure [Ri ght Arm] 136/95 H 136/95 H Blood Pressure [Ri ght Upper Arm] 135/88 Pulse Oximetry 93 93 Oxygen Delivery Me thod Room Air Room Air 07/11/23 22:00 07/11/23 23:00 07/11/23 23:00 Temperature 98.7 F 99.3 F Pulse Rate Pulse Rate [Pulse Oximeter] Pulse Rate [Right Pulse Oximeter] 111 H 110 H 110 H Respiratory Rate 20 20 20 Blood Pressure Blood Pressure [Ri ght Arm] 136/95 H 133/84 Blood Pressure [Ri ght Upper Arm] Pulse Oximetry 92 91 Oxygen Delivery Me thod Room Air Room Air 07/11/23 23:03 07/12/23 02:11 07/12/23 03:39 Temperature 99.3 F 98.5 F 98.5 F Pulse Rate Pulse Rate [Pulse Oximeter] Pulse Rate [Right Pulse Oximeter] 110 H 105 H 119 H Respiratory Rate 20 16 16 Blood Pressure Blood Pressure [Ri ght Arm] 133/84 129/93 H 143/93 H Blood Pressure [Ri ght Upper Arm] Pulse Oximetry 91 90 92 Oxygen Delivery Me thod Room Air Room Air Room Air 07/12/23 06:00 07/12/23 07:00 07/12/23 07:00 Temperature 98.5 F 98.0 F Pulse Rate Pulse Rate [Pulse Oximeter] Pulse Rate [Right Pulse Oximeter] 105 H 96 96 Respiratory Rate 16 16 16 Blood Pressure Blood Pressure [Ri ght Arm] 143/93 H 123/86 Blood Pressure [Ri ght Upper Arm] Pulse Oximetry 94 95 Oxygen Delivery Me thod Room Air Room Air 07/12/23 08:14 Temperature 98.0 F Pulse Rate Pulse Rate [Pulse Oximeter] Pulse Rate [Right Pulse Oximeter] 96 Respiratory Rate 16 Blood Pressure Blood Pressure [Ri ght Arm] 123/86 Blood Pressure [Ri ght Upper Arm] Pulse Oximetry 95 Oxygen Delivery Me thod Room Air Labs Labs: Laboratory Results - last 24 hr 07/11/23 07/11/23 07/11/23 18:55 20:15 20:20 WBC 8.75 RBC 5.56 Hgb 17.1 Hct 48.0 MCV 86 MCH 31 MCHC 36 RDW Coeff of [place] 12.0 Plt Count 313 Neut % (Auto) 55.2 Lymph % (Auto) 39.2 [place] % (Auto) 5.0 Eos % (Auto) 0.2 Baso % (Auto) 0.3 Neut # (Auto) 4.82 Lymph # (Auto) 3.43 H [place] # (Auto) 0.40 Eos # (Auto) 0.02 Baso # (Auto) 0.03 Abs Immat Gran (auto) 0.01 Imm/Tot Granulo (auto) 0.1 Sodium 138 Potassium 3.7 Chloride 100 Carbon Dioxide 18 L Anion Gap 20 H BUN 23 Creatinine 0.9 Estimated Creat Clear 125.74 Estimated GFR 114 Glucose 208 H Lactate 4.4 H* Calcium 8.0 L Magnesium 2.3 Total Bilirubin 0.6 Direct Bilirubin 0.2 AST 44 H ALT 39 Alkaline Phosphatase 69 Total Protein 7.5 Albumin 4.5 TSH 2.480 Salicylates < 1.0 L Urine Opiates Screen Negative Ur Oxycodone Screen Negative Urine Methadone Screen Negative Acetaminophen < 10.0 L Ur Barbiturates Screen Negative U Tricyclic Antidepress Negative Ur Phencyclidine Scrn Negative Ur Amphetamines Screen Negative U Methamphetamines Scrn Negative U Benzodiazepines Scrn Negative Urine Cocaine Screen Negative U Marijuana (THC) Screen POSITIVE A Ur Drug Screen Comment See Note Ethyl Alcohol 0.34 H* Lab Acknowledgement Test Added
[2023-07-12 10:44] LABS: HCO3 VBG 25 mmol/L (21-28); Ionized Calcium* 1.03 mmol/L (1.11-1.30); Lactate* 2.6 mmol/L (0.5-1.9); PCO2 VBG 33 mmHG (40-50); PO2 VBG 69.2 mmHG (25-47); pH VBG 7.496 (7.32-7.43)
[2023-07-12 10:49] LABS: Hematocrit 40.2 % (37.0-53.0); Hemoglobin* 14.3 gm/dL (13.5-17.5); Mean Corpuscular HGB Conc 36 gm/dL (32-36); Mean Corpuscular Hemoglobin 31 pg (26-34); Mean Corpuscular Volume 87 fL (80-100); Platelet Count* 203 K/uL (140-440); Red Blood Count 4.63 m/uL (4.30-5.90); White Blood Count* 5.18 K/uL (4.50-11.00)
[2023-07-12 11:02] LABS: Albumin* 3.7 g/dL (3.3-5.0); Chloride* 102 mmol/L (96-114)
[2023-07-12 11:03] LABS: Prothrombin Time 13.7 Seconds; Sodium* 133 mmol/L (135-149)
[2023-07-12 11:04] LABS: Potassium* 4.3 mmol/L (3.6-5.1)
[2023-07-12] MEDS: CALCIUM GLUC 1,000MG/50 ML 1,000 MG/50 ML BAG 100 MG IVPB (11:04)
[2023-07-12] MEDS: PHENobarbitaL 65 MG/ML inj IVP ×2 (11:04→18:04)
[2023-07-12 11:05] LABS: Creatinine* 0.8 mg/dL (0.5-1.5); Est. Creatinine Clearance* 158.23; Estimated Glomerular Filt Rate 118 ml/min
[2023-07-12 11:06] LABS: Alanine Aminotransferase* 34 U/L (4-50); Alkaline Phosphatase* 58 U/L (40-150); Anion Gap 11 mEq/L (7-15); Aspartate Amino Transferase* 39 U/L (12-35); Bilirubin Direct* 0.1 mg/dL (0.0-0.5); Bilirubin Total* 0.9 mg/dL (0.1-1.5); Blood Urea Nitrogen* 18 mg/dL (5-24); Carbon Dioxide* 20 mmol/L (20-32); Gamma Glutamyl Transpeptidase* 88 U/L (8-55); Glucose* 120 mg/dL (60-115); Lipase* 89 U/L (23-300); Phosphorus* 3.4 mg/dL (2.5-4.5); Total Protein* 6.2 g/dL (6.0-8.3)
[2023-07-12 11:07] LABS: Magnesium* 1.9 mg/dL (1.5-2.6)
[2023-07-12 11:17] LABS: C Reactive Protein* < 0.5 mg/dL (0.5-1.0)
[2023-07-12 11:18] LABS: Troponin I* < 0.01 ng/mL (0.01-0.04)
[2023-07-12 11:36] LABS: Slide Review Reflex No
[2023-07-12 11:53] LABS: Ethanol* 0.05 % (0.01-0.03)
[2023-07-12] MEDS: ONDANSETRON 2 MG/ML inj 4 MG IVP ×2 (12:12→17:24)
[2023-07-12] MEDS: THIAMINE 250 MG in 0.9 % SODIUM CHLORIDE 100 ml 100 ML 102.5 MG IVPB (14:22)
--- NOTE | 2023-07-12 17:59 | PM.DS1 ---
DS: Providers Provider Date Seen: 07/12/23 Date of admission: 07/12/23 12:35 Primary care physician: Not a Local Provider Admitting Clinician: Feliciano Pickering MD Attending Physician on discharge: Feliciano Pickering MD Date of Discharge: 07/12/23 DS: Diagnosis Discharge Diagnosis (1) Alcohol withdrawal syndrome: Status: Acute Problem details: -scheduled phenobarbital regimen over the next 7 days -Ativan prn for breakthrough symptoms -IV thiamine, hold oral MVM and folic acid until nausea has improved -IV Zofran for nausea (2) Alcohol use disorder: Status: Acute Problem details: -[facility]ety DS: Summary Hospital Course Hospital Course: 33-year-old male with history of severe alcohol withdrawal admitted to the hospital for onset of alcohol withdrawal symptoms after recent alcohol binge. On admission he reported mild alcohol withdrawal symptoms while still intoxicated with an alcohol level of 0.34. He was treated with lorazepam and a CIWA protocol as well as receiving phenobarbital. He reports doing well today. He wants to go home. I indicated to him that I was concerned that he could still have problems with more serious alcohol withdrawal symptoms but he indicates that he would go home and that he thinks he will be okay now there Time Spent with Patient Time attestation: Total time spent providing and/or coordinating discharge services: Time spent: Less than 30 minutes Exam Narrative: Exam Narrative: He is pleasant and appropriate. Sitting in a chair. Not tremulous. Const: Vital Signs, click to edit/add: Vital Signs - 24 hr 07/11/23 18:41 07/11/23 18:51 07/11/23 19:00 Temperature 97.9 F Pulse Rate Pulse Rate [Pulse Oximeter] 140 H Pulse Rate [Right Pulse Oximeter] Respiratory Rate 20 Blood Pressure Blood Pressure [Ri ght Arm] Blood Pressure [Ri ght Upper Arm] 143/104 H 135/88 Pulse Oximetry 95 92 Oxygen Delivery Me thod Room Air 07/11/23 19:09 07/11/23 19:15 07/11/23 19:30 Temperature Pulse Rate 109 H 125 H 112 H Pulse Rate [Pulse Oximeter] Pulse Rate [Right Pulse Oximeter] Respiratory Rate Blood Pressure Blood Pressure [Ri ght Arm] Blood Pressure [Ri ght Upper Arm] Pulse Oximetry 91 91 94 Oxygen Delivery Me thod 07/11/23 19:32 07/11/23 19:45 07/11/23 20:00 Temperature Pulse Rate 114 H 110 H 113 H Pulse Rate [Pulse Oximeter] Pulse Rate [Right Pulse Oximeter] Respiratory Rate Blood Pressure 122/79 Blood Pressure [Ri ght Arm] Blood Pressure [Ri ght Upper Arm] Pulse Oximetry 94 93 96 Oxygen Delivery Me thod 07/11/23 20:02 07/11/23 20:15 07/11/23 21:16 Temperature 98.7 F Pulse Rate 110 H 113 H Pulse Rate [Pulse Oximeter] Pulse Rate [Right Pulse Oximeter] 105 H Respiratory Rate 18 Blood Pressure 113/89 Blood Pressure [Ri ght Arm] 136/95 H Blood Pressure [Ri ght Upper Arm] Pulse Oximetry 96 95 93 Oxygen Delivery Me thod Room Air 07/11/23 21:16 07/11/23 21:18 07/11/23 21:53 Temperature 97.9 F 97.9 F 97.9 F Pulse Rate Pulse Rate [Pulse Oximeter] 140 H Pulse Rate [Right Pulse Oximeter] 105 H 105 H Respiratory Rate 20 20 20 Blood Pressure Blood Pressure [Ri ght Arm] 136/95 H 136/95 H Blood Pressure [Ri ght Upper Arm] 135/88 Pulse Oximetry 93 93 Oxygen Delivery Me thod Room Air Room Air 07/11/23 22:00 07/11/23 23:00 07/11/23 23:00 Temperature 98.7 F 99.3 F Pulse Rate Pulse Rate [Pulse Oximeter] Pulse Rate [Right Pulse Oximeter] 111 H 110 H 110 H Respiratory Rate 20 20 20 Blood Pressure Blood Pressure [Ri ght Arm] 136/95 H 133/84 Blood Pressure [Ri ght Upper Arm] Pulse Oximetry 92 91 Oxygen Delivery Me thod Room Air Room Air 07/11/23 23:03 07/12/23 02:11 07/12/23 03:39 Temperature 99.3 F 98.5 F 98.5 F Pulse Rate Pulse Rate [Pulse Oximeter] Pulse Rate [Right Pulse Oximeter] 110 H 105 H 119 H Respiratory Rate 20 16 16 Blood Pressure Blood Pressure [Ri ght Arm] 133/84 129/93 H 143/93 H Blood Pressure [Ri ght Upper Arm] Pulse Oximetry 91 90 92 Oxygen Delivery Me thod Room Air Room Air Room Air 07/12/23 06:00 07/12/23 07:00 07/12/23 07:00 Temperature 98.5 F 98.0 F Pulse Rate Pulse Rate [Pulse Oximeter] Pulse Rate [Right Pulse Oximeter] 105 H 96 96 Respiratory Rate 16 16 16 Blood Pressure Blood Pressure [Ri ght Arm] 143/93 H 123/86 Blood Pressure [Ri ght Upper Arm] Pulse Oximetry 94 95 Oxygen Delivery Me thod Room Air Room Air 07/12/23 08:14 07/12/23 10:22 07/12/23 12:00 Temperature 98.0 F 98.5 F 98.8 F Pulse Rate Pulse Rate [Pulse Oximeter] Pulse Rate [Right Pulse Oximeter] 96 88 86 Respiratory Rate 16 16 16 Blood Pressure Blood Pressure [Ri ght Arm] 123/86 117/67 112/69 Blood Pressure [Ri ght Upper Arm] Pulse Oximetry 95 98 93 Oxygen Delivery Me thod Room Air Room Air Room Air 07/12/23 12:57 07/12/23 14:00 07/12/23 15:00 Temperature 99.0 F 99.0 F 99.8 F H Pulse Rate Pulse Rate [Pulse Oximeter] Pulse Rate [Right Pulse Oximeter] 84 89 85 Respiratory Rate 16 18 Blood Pressure Blood Pressure [Ri ght Arm] 104/64 116/77 132/84 Blood Pressure [Ri ght Upper Arm] Pulse Oximetry 94 93 94 Oxygen Delivery Me thod Room Air Room Air Room Air 07/12/23 15:00 07/12/23 17:00 Temperature 98.7 F Pulse Rate Pulse Rate [Pulse Oximeter] Pulse Rate [Right Pulse Oximeter] 85 89 Respiratory Rate 18 18 Blood Pressure Blood Pressure [Ri ght Arm] 149/98 H Blood Pressure [Ri ght Upper Arm] Pulse Oximetry 97 Oxygen Delivery Me thod Room Air Documenting provider has reviewed patient's vital signs: yes DS: Data Data Completed and Pending Labs on day of discharge: Labs from last 24 hours 07/12/23 07/12/23 07/11/23 11:30 10:38 20:20 WBC 5.18 RBC 4.63 Hgb 14.3 Hct 40.2 MCV 87 MCH 31 MCHC 36 RDW Coeff of [place] Plt Count 203 Neut % (Auto) Lymph % (Auto) [place] % (Auto) Eos % (Auto) Baso % (Auto) Neut # (Auto) Lymph # (Auto) [place] # (Auto) Eos # (Auto) Baso # (Auto) Abs Immat Gran (auto) Imm/Tot Granulo (auto) INR 1.00 VBG pH 7.496 H VBG pCO2 33 L VBG pO2 69.2 H VBG HCO3 25 Sodium 133 L Potassium 4.3 Chloride 102 Carbon Dioxide 20 Anion Gap 11 BUN 18 Creatinine 0.8 Estimated Creat Clear 158.23 Estimated GFR 118 Glucose 120 H Lactate 2.6 H Calcium 8.0 L Ionized Calcium [place] 1.03 L Phosphorus 3.4 Magnesium 1.9 Total Bilirubin 0.9 Direct Bilirubin 0.1 GGT 88 H AST 39 H ALT 34 Alkaline Phosphatase 58 Troponin I < 0.01 L C-Reactive Protein < 0.5 L Total Protein 6.2 Albumin 3.7 Lipase 89 TSH Salicylates Urine Opiates Screen Ur Oxycodone Screen Urine Methadone Screen Acetaminophen Ur Barbiturates Screen U Tricyclic Antidepress Ur Phencyclidine Scrn Ur Amphetamines Screen U Methamphetamines Scrn U Benzodiazepines Scrn Urine Cocaine Screen U Marijuana (THC) Screen Ur Drug Screen Comment Ethyl Alcohol 0.05 H Lab Acknowledgement Test Added Test Added 07/11/23 07/11/23 20:15 18:55 WBC 8.75 RBC 5.56 Hgb 17.1 Hct 48.0 MCV 86 MCH 31 MCHC 36 RDW Coeff of [place] 12.0 Plt Count 313 Neut % (Auto) 55.2 Lymph % (Auto) 39.2 [place] % (Auto) 5.0 Eos % (Auto) 0.2 Baso % (Auto) 0.3 Neut # (Auto) 4.82 Lymph # (Auto) 3.43 H [place] # (Auto) 0.40 Eos # (Auto) 0.02 Baso # (Auto) 0.03 Abs Immat Gran (auto) 0.01 Imm/Tot Granulo (auto) 0.1 INR VBG pH VBG pCO2 VBG pO2 VBG HCO3 Sodium 138 Potassium 3.7 Chloride 100 Carbon Dioxide 18 L Anion Gap 20 H BUN 23 Creatinine 0.9 Estimated Creat Clear 125.74 Estimated GFR 114 Glucose 208 H Lactate 4.4 H* Calcium 8.0 L Ionized Calcium [place] Phosphorus Magnesium 2.3 Total Bilirubin 0.6 Direct Bilirubin 0.2 GGT AST 44 H ALT 39 Alkaline Phosphatase 69 Troponin I C-Reactive Protein Total Protein 7.5 Albumin 4.5 Lipase TSH 2.480 Salicylates < 1.0 L Urine Opiates Screen Negative Ur Oxycodone Screen Negative Urine Methadone Screen Negative Acetaminophen < 10.0 L Ur Barbiturates Screen Negative U Tricyclic Antidepress Negative Ur Phencyclidine Scrn Negative Ur Amphetamines Screen Negative U Methamphetamines Scrn Negative U Benzodiazepines Scrn Negative Urine Cocaine Screen Negative U Marijuana (THC) Screen POSITIVE A Ur Drug Screen Comment See Note Ethyl Alcohol 0.34 H* Lab Acknowledgement Discharge Plan Discharge Disposition: Home, Self-Care Date of Admission: 07/12/23 12:35 Attending Provider on Discharge: Feliciano Pickering Primary Care Provider: Provider,Not a Local Condition: Stable Anticipated Discharge Date/Time: 07/12/23 18:05 Discharge Medications: Discontinued potassium chloride 20 mEq tablet extended release 20 meq PO DAILY Qty: 7 2RF Discharge Orders: Discharge Order (Routine); Ordered 07/12/23 Ordered By: Feliciano Pickering Additional Instructions: [facility] from [facility] and alcohol treatment. Activity Level: Activity as Tolerated Discharge Diet: Regular Follow Up Appointments: Provider,Not a Local [Primary Care Provider] - Forms: [employer] Info Instructions
--- NOTE | 2023-07-12 19:53 | PC.NURSE ---
Nursing Care Hours: [id number] Pt asleep most of shift, CIWA every hour remains 1 or below. Up for dinner and became nauseated. Treated per eMAR. Pt states wanting to go home. Social Media Marketing Analyst asked pt about withdrawal concerns and pt states he feels like he is over it. Discussed with hospitalist and agreed pt stable enough right now to go home. Social Media Marketing Analyst discussed with pt plans after discharge, pt states he will f/u with the [place] for treatment as well as contact therapist. Gave scheduled dose of phenobarbital. Went over discharge instructions with pt and parent. IV removed. Pt ambulated out.
== END 2023-07-12 19:25 | disposition home or self-care (01) | DRG 897 ==
LOC: ED 20:13 → MEDSURG 21:15
PROVIDERS: Family Medicine; Admitting Provider Family Medicine; Emergency Provider Family Medicine; Visit Provider Family Medicine
DX: F10.239 Alcohol dependence with withdrawal, unspecified (principal); F10.229 Alcohol dependence with intoxication, unspecified; Y90.8 Blood alcohol level of 240 mg/100 ml or more; F41.9 Anxiety disorder, unspecified; F32.A Depression, unspecified; R00.0 Tachycardia, unspecified; R25.1 Tremor, unspecified; R11.2 Nausea with vomiting, unspecified; R74.01 Elevation of levels of liver transaminase levels; E83.51 Hypocalcemia; R74.02 Elevation of levels of lactic acid dehydrogenase [LDH]; F15.11 Other stimulant abuse, in remission
CPT/HCPCS: 36415; 80048; 80069; 80076; 80143; 80179; 80306; 82077; 82330; 82803; 82977; 83605; 83690; 83735; 84443; 84484; 85025; 85027; 85610; 86140; 93005; 94761; 99284; A9153; A9270; G0378; J0613; J2060; J2405; J2560; J3411; J7030; J7120

== ENCOUNTER 2023-07-24 04:02 | Outpatient (CLI) | payer OTHER, SELFPAY | END 2023-07-24 04:03 | disposition home or self-care (01) | LOC: AMB 07-25 09:23 | PROVIDERS: Visit Provider Family Medicine | DX: R45.851 Suicidal ideations (principal); F10.129 Alcohol abuse with intoxication, unspecified | CPT/HCPCS: A0425; A0433 ==

== ENCOUNTER 2023-08-21 13:53 | Emergency (ER) | payer OTHER, SELFPAY ==
[2023-08-21] VITALS (23 sets, daily range): BP systolic 115–154; BP diastolic 82–108; PULSE 92–116; RESP 16–18; TEMP 36.4; O2SAT 87–96; BMI 28.5
--- NOTE | 2023-08-21 14:12 | ED.ALCOHOL ---
HPI - Alcohol General Time Seen by Provider: 14:12 Date Seen: 08/21/23 Chief Complaint: Alcohol/Intoxication Stated Complaint: Mental Health Time Seen by Provider: 08/21/23 14:02 Source: patient, RN notes reviewed and old records reviewed Mode of arrival: wheelchair History of Present Illness HPI narrative: Patient brought in by friend with alcohol intoxication and concern for his mental health. Patient admits that he has been drinking heavy for few days now, states that he drinks because of his mental health. [facility] and they told him to come here. He does have a therapist at [facility]. 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 He alludes to witness seen things in [facility] that continue to bother him. He does admit that he watch 2 children . He feels that he drinks because he cannot get rid of what is happened during his service and what he is seen, this stays inside him. He does have a daughter, daughter is safe with her mother right now. He does try to focus on her as something to strive to get better for. He has been receiving [facility] T[facility] and at [facility], states he was able to be sober for those this last week. He has had some vomiting through his alcohol use, no acute abdominal pain at this time. Has had pancreatitis before. He has had seizures in [facility] with alcohol withdrawal once. He has been hospitalized multiple times for alcohol withdrawal. He was hospitalized here this past July, did end up going home. He has been at the [facility] multiple times prior to that for alcohol withdrawal per his report. He does use marijuana but otherwise does not use any other illicit substances. complaint: alcohol intoxication and alcohol dependence Last drink: just [employer] Chronic alcohol use: Yes Previous visits for alcohol intoxication: Yes Recent trauma: No Associated symptoms: nausea and vomiting Related Data Home Medications Medication Instructions Recorded Confirmed dextroamphetamine-amphetamine ER PO 08/21/23 20 mg 24hr capsule,extend release Allergies Allergy/AdvReac Type Severity Reaction Status Date / Time No Known Drug Allergies Allergy Verified 06/15/23 21:49 [facility] Medical History Alcohol use disorder ?F10.90 - Alcohol use, unspecified, uncomplicated (ICD-10) Family History Other Cardiovascular disease Diabetes Stroke Social History Narrative: patient lives alone in [place]. He is . He has a 10-year-old daughter that he sees on a regular schedule. 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 He is a and gets medical care through the [facility]. What is your current living situation?: I presently have a place to live Problems where you live: no known problems Problems where you live details: N/A In the past 12 months, utilities in danger of being shut off: no In past 12 months, lack of transportation kept you from medical appts, meetings, work, or getting things needed for daily living: no In the past 12 mos, have been you worried that your food would run out before you had money to buy more?: never true In the past 12 mos, the food you bought just didn't last and you didn't have money to buy more?: never true Highest level of school completed/degree received: some college, no degree Do you use any of these nicotine containing products: E-Cigarettes How often do you have a drink containing alcohol: 4 or more times a week Alcohol type: hard liquor AUDIT-C Alcohol total score: 4 Non-prescribed substance use: marijuana (any form) Non-prescribed substance use details: ketamine infusions Caffeine: Yes How often does anyone, including family, friends and others, physically hurt you: never How often does anyone, including family, friends and others, insult or talk down to you: never How often does anyone, including family, friends and others, threaten you with harm: never How often does anyone, including family, friends and others, scream or curse at you: never service: Yes Exam Const: Vital Signs, click to edit/add: Vital Signs - 24 hr 08/21/23 13:58 08/21/23 16:03 08/21/23 16:30 Temperature 97.5 F L Pulse Rate 98 Pulse Rate [Right Pulse Oximeter] 112 H 106 H Respiratory Rate 18 16 Blood Pressure Blood Pressure [Le ft Arm] 130/102 H Blood Pressure [Ri ght Upper Arm] 154/108 H Pulse Oximetry 92 93 96 Oxygen Delivery Me thod Room Air Room Air 08/21/23 16:31 08/21/23 16:45 08/21/23 17:00 Temperature Pulse Rate 92 94 98 Pulse Rate [Right Pulse Oximeter] Respiratory Rate 16 Blood Pressure 129/91 H Blood Pressure [Le ft Arm] Blood Pressure [Ri ght Upper Arm] Pulse Oximetry 89 92 91 Oxygen Delivery Me thod Room Air 08/21/23 17:01 08/21/23 17:15 08/21/23 17:30 Temperature Pulse Rate 97 104 H 103 H Pulse Rate [Right Pulse Oximeter] Respiratory Rate 16 Blood Pressure 123/85 Blood Pressure [Le ft Arm] Blood Pressure [Ri ght Upper Arm] Pulse Oximetry 88 91 88 Oxygen Delivery Me od Room Air 08/21/23 17:31 08/21/23 17:45 08/21/23 18:00 Temperature Pulse Rate 100 110 H 107 H Pulse Rate [Right Pulse Oximeter] Respiratory Rate 16 Blood Pressure 120/82 Blood Pressure [Le ft Arm] Blood Pressure [Ri ght Upper Arm] Pulse Oximetry 90 92 92 [facility] 08/[facility]/23 18:01 08/21/23 18:15 08/21/23 18:30 Temperature Pulse Rate 116 H 100 93 Pulse Rate [Right Pulse Oximeter] Respiratory Rate 16 Blood Pressure 115/97 H Blood Pressure [Le ft Arm] Blood Pressure [Ri ght Upper Arm] Pulse Oximetry 95 94 92 Oxygen Delivery Me od 08/21/23 18:34 08/21/23 18:45 08/21/23 20:02 Temperature Pulse Rate 109 H 113 H Pulse Rate [Right Pulse Oximeter] 107 H Respiratory Rate 16 Blood Pressure Blood Pressure [Le ft Arm] 140/91 H Blood Pressure [Ri ght Upper Arm] Pulse Oximetry 91 94 94 Oxygen Delivery Me thod 08/21/23 20:07 08/21/23 20:15 08/21/23 20:30 Temperature Pulse Rate 105 H 103 H 104 H Pulse Rate [Right Pulse Oximeter] Respiratory Rate Blood Pressure Blood Pressure [Le ft Arm] Blood Pressure [Ri ght Upper Arm] Pulse Oximetry 89 90 88 Oxygen Delivery Me thod 08/21/23 20:31 Temperature Pulse Rate 104 H Pulse Rate [Right Pulse Oximeter] Respiratory Rate 16 Blood Pressure 130/86 Blood Pressure [Le ft Arm] Blood Pressure [Ri ght Upper Arm] Pulse Oximetry 87 L Oxygen Delivery Me thod Room Air Patient is able to say alert and conversive with me. He does have some swelling around his eyelids, admits to crying, seems to be consistent with edema as there is no erythema, no drainage from his eyes. There is no facial traumatic changes noted. He has symmetrical facial function. Pupils are equal round, conjugate gaze, sclera injected bilaterally. Oropharynx are mucosa, maybe somewhat dry. Neck is supple, no adenopathy, no thyromegaly masses or nodules. Lungs are clear, good air entry, CV slightly fast but regular, no murmur, normal S1-S2, no S3-S4. Abdomen is soft, nontender, no organomegaly. Patient is following commands, note no tremors, moves arms and legs in bed. Documenting provider has reviewed patient's vital signs: yes Course Course ED Course: Patient is acutely intoxicated with alcohol, endorses underlying mental health issues stemming from his service. Will initiate IV fluids, obtain appropriate labs. I find no indications for any imaging of anything at this time. He is obviously very significantly intoxicated, could not walk out of the car or get himself out of the car without assistance. He will need to clinically sober up, need to watch for withdrawal during this. Consider telehealth consultation once clinically sober to assess underlying mental health. Placement for mental health maybe extremely difficult in light of his alcoholism unless we can rely [facility]. Reevaluation(s) Time of Reevaluation #1: 18:45 Reevaluation #1: We were able to review foot itch of patient falling in the parking lot, given his intoxication level, we did decide to do CT head and neck. He is not exhibiting any changes in his neurologic status but patient is intoxicated. This was the 1st availability that we were able to review the foot age. Again on arrival, patient had no complaints and did deny trauma. He was seen to fall backwards after stumbling when getting out of the vehicle himself. He hit the back of his head, fell completely backwards and did not brace on the fall at all. Time of Reevaluation #2: 21:28 Reevaluation #2: Balaji is certainly clinically sober. He states he cannot believe his blood alcohol level, feels it is quite on believable. He has a therapy appointment on Wednesday, has his next ketamine treatment on Wednesday. He feels [facility]. [facility]. He is denying any suicidality, just feels he is in a dark place. This year has been difficult for him. He does have exercise equipment at home, just feels like it is difficult to get the ambition to workout, exercises dropped off for him. We did review the importance of exercise in mood disorders, can help decrease depression and off let anxiety. He did tolerate the 1 mg oral Ativan here. He really does not want to come into the hospital, he would really like to discharge to home. He is adamant that he is not suicidal, has no plans. He really does not want to harm himself. He is wondering about discharging with some Ativan tablets. We have discussed the absolute need for safety with these, it drinking alcohol and using Ativan could lead to respiratory depression and . He does understand that, he promises that he will not use Ativan and drink. We have discussed that if he is using Ativan and is still having significant withdrawal, he needs to be re-evaluated medically, do not start drinking. He states the next 1-2 days will be the worst for him. Will give him tablets from [facility], smallest dose we have available is 10 tablets currently. Did talk to patient about doing telehealth assessment here, he really does not want to. [facility]. Vital Signs Vital signs: Initial Vital Signs Temperature 97.5 F L 08/21/23 13:58 Temperature Source Temporal Artery Scan 08/21/23 13:58 Pulse Rate 112 H 08/21/23 13:58 Respiratory Rate 18 08/21/23 13:58 Blood Pressure 154/108 H 08/21/23 13:58 Blood Pressure Mean 123 H 08/21/23 13:58 Blood Pressure Position Sitting 08/21/23 13:58 Pulse Oximetry 92 08/21/23 13:58 Oxygen Delivery Method Room Air 08/21/23 13:58 Vital Signs Temperature 97.5 F L 08/21/23 13:58 Pulse Rate 112 H 08/21/23 13:58 Respiratory Rate 18 08/21/23 13:58 Blood Pressure 154/108 H 08/21/23 13:58 Pulse Oximetry 92 08/21/23 13:58 Oxygen Delivery Method Room Air 08/21/23 13:58 Temperature 97.5 F L 08/21/23 13:58 Pulse Rate 104 H 08/21/23 20:31 Respiratory Rate 16 08/21/23 20:31 Blood Pressure 130/86 08/21/23 20:31 Pulse Oximetry 87 L 08/21/23 20:31 Oxygen Delivery Method Room Air 08/21/23 20:31 Medications Administered Medications: Generic Name Dose Route Start Last Admin Trade Name Freq PRN Reason Stop Dose Admin Lactated Ringer's 1,000 mls @ 500 mls/hr 08/21/23 19:43 08/21/23 19:59 Lactated Ringers 1000 Ml IV 08/21/23 21:42 500 mls/hr .Q2H SANTO Administration Discontinued Medications Generic Name Dose Route Start Last Admin Trade Name Freq PRN Reason Stop Dose Admin Sodium Chloride 1,000 mls @ 1,000 mls/hr 08/21/23 14:29 08/21/23 14:47 0.9 % Sodium Chloride 1000 Ml IV 08/21/23 15:28 1,000 mls/hr .Q1H SANTO Administration Lactated Ringer's 1,000 mls @ 500 mls/hr 08/21/23 15:43 08/21/23 15:57 Lactated Ringers 1000 Ml IV 08/21/23 17:42 500 mls/hr .Q2H SANTO Administration Lorazepam 1 mg 08/21/23 19:43 08/21/23 19:59 Lorazepam 1 Mg Tablet PO 08/21/23 19:44 1 mg ONCE ONE Administration Ondansetron HCl 4 mg 08/21/23 14:29 08/21/23 14:47 Ondansetron 2 Mg/Ml Inj IVP 08/21/23 14:30 4 mg ONCE ONE Administration MDM - Alcohol Lab Data Attestation: I reviewed the patient's lab results. Labs: Lab Results 08/21/23 08/21/23 08/21/23 Range/Units 14:10 15:19 19:50 WBC 7.61 (4.50-11.00) K/uL RBC 5.58 (4.30-5.90) m/uL Hgb 17.0 (13.5-17.5) gm/dL Hct 49.9 (37.0-53.0) % MCV 89 (80-100) fL MCH 31 (26-34) pg MCHC 34 (32-36) gm/dL RDW Coeff of Piedad 13.1 (11.5-15.5) % Plt Count 138 L (140-440) K/uL Neut % (Auto) 47.5 (42.0-72.0) % Lymph % (Auto) 47.4 H (20-44) % [place] % (Auto) 3.8 (0.0-11.0) % Eos % (Auto) 0.5 (0.0-7.0) % Baso % (Auto) 0.4 (0.0-3.0) % Neut # (Auto) 3.61 (1.7-7.0) K/uL Lymph # (Auto) 3.60 H (0.90-2.90) K/uL [place] # (Auto) 0.30 (0.00-0.90) K/UL Eos # (Auto) 0.04 (0.00-0.50) K/uL Baso # (Auto) 0.03 (0.00-0.30) K/uL Abs Immat Gran (auto) 0.03 (0.00-0.30) K/uL Imm/Tot Granulo (auto) 0.4 % Sodium 145 (135-149) mmol/L Potassium 3.6 (3.6-5.1) mmol/L Chloride 105 (96-114) mmol/L Carbon Dioxide 25 (20-32) mmol/L Anion Gap 15 (7-15) mEq/L BUN 13 (5-24) mg/dL Creatinine 0.8 (0.5-1.5) mg/dL Estimated Creat Clear 141.46 Estimated GFR 118 ml/min Glucose 118 H (60-115) mg/dL Lactate 3.8 H 4.0 H (0.5-1.9) mmol/L Calcium 8.8 (8.4-10.6) mg/dL Magnesium 2.3 (1.5-2.6) mg/dL Total Bilirubin 0.6 (0.1-1.5) mg/dL AST 41 H (12-35) U/L ALT 22 (4-50) U/L Alkaline Phosphatase 77 (40-150) U/L Total Protein 7.8 (6.0-8.3) g/dL Albumin 4.7 (3.3-5.0) g/dL Lipase 198 (23-300) U/L Salicylates < 1.0 L (1.0-10) mg/dL Urine Opiates Screen Negative (Negative) Ur Oxycodone Screen Negative (Negative) Urine Methadone Screen Negative (Negative) Acetaminophen < 10.0 L (10.0-30.0) ug/mL Ur Barbiturates Screen Negative (Negative) U Tricyclic Antidepress Negative (Negative) Ur Phencyclidine Scrn Negative (Negative) Ur Amphetamines Screen Negative (Negative) U Methamphetamines Scrn Negative (Negative) U Benzodiazepines Scrn POSITIVE A (Negative) Urine Cocaine Screen Negative (Negative) U Marijuana (THC) Screen POSITIVE A (Negative) Ur Drug Screen Comment See Note Ethyl Alcohol 0.47 H* (0.01-0.03) % Imaging Data CT scan - head: Attestation: I have reviewed the pertinent imaging results. Radiologist's impression: Patient: [facility] Facility:?[facility] Patient ID:?[id number] Site Patient ID:?[id number]. Site :?1990 Study:?CT Head w/o-08/21/2023 7:46:17 PM Ordering Physician:Parish Final Report: INDICATION: Fall. TECHNIQUE: Noncontrast CT images of the brain. COMPARISON: None. FINDINGS: The ventricles and sulci are within normal limits for patient age. No mass effect or midline shift. The cat-white differentiation is maintained. No acute intracranial hemorrhage or pathologic extra-axial fluid collection. The globes are symmetric. The calvarium is intact. The visualized paranasal sinuses and mastoid air cells are clear. IMPRESSION: No acute intracranial hemorrhage or mass effect. Please note that all CT scans at this facility use dose modulation, iterative reconstruction, and/or weight-based dosing when appropriate to reduce radiation dose to as low as reasonably achievable. Dictated by Asif Kay MD @ 08/21/2023 8:16:40 PM (Electronic Signature) CT cervical spine: Attestation: I have reviewed the pertinent imaging results. Radiologist's impression: Patient: [facility] Facility:?[facility] Patient ID:?[id number] Site Patient ID:?[id number]. Site :?1990 Study:?CT Spine Cervical w/o-08/21/2023 7:46:47 PM Ordering Physician:Parish Final Report: INDICATION: Fall. TECHNIQUE: Noncontrast CT images of the cervical spine. COMPARISON: None. FINDINGS: Straightening of the cervical lordosis. Mild rightward cervical curvature. No acute fracture, spondylolisthesis, or traumatic subluxation. Shallow posterior disc osteophyte complex and uncinate spurring at C3-4. Mild multilevel fast level facet arthropathy and uncinate spurring. No high-grade spinal canal or neural foraminal stenosis. IMPRESSION: 1. No acute fracture or traumatic subluxation. 2. Mild multilevel cervical spondylosis. Please note that all CT scans at this facility use dose modulation, iterative reconstruction, and/or weight-based dosing when appropriate to reduce radiation dose to as low as reasonably achievable. Dictated by Asif Kay MD @ 08/21/2023 8:20:15 PM (Electronic Signature) Discharge Plan Discharge Clinical Impression: Alcoholic intoxication Patient Disposition: Home, Self-Care Condition: Improved Instructions: Depression (ED), Alcohol Withdrawal (ED), Anxiety (ED), Alcohol Use Disorder (ED) Additional Instructions: Absolutely no drinking with use of Ativan, can have life-threatening respiratory depression if you mix these 2. Can use Ativan per prescription for withdrawal symptoms. Please keep your therapy appointment Wednesday. If you feel your mood is worsening, your withdrawal symptoms are escalating and not controlled by the prescribed Ativan, please seek re-evaluation. Activity Level: Activity as Tolerated Discharge Diet: Regular Prescriptions: No Action dextroamphetamine-amphetamine 20 mg capsule,extended release 24hr PO Follow Up/Referrals: Provider,Not a Local [Primary Care Provider] - Stand Alone Forms: StyleQ Info Instructions
[2023-08-21 14:36] LABS: Lactate* 3.8 mmol/L (0.5-1.9)
[2023-08-21 14:44] LABS: Basophils Absolute Auto 0.03 K/uL (0.00-0.30); Basophils Percent Auto 0.4 % (0.0-3.0); Eosinophils Absolute Auto 0.04 K/uL (0.00-0.50); Eosinophils Percent Auto 0.5 % (0.0-7.0); Hematocrit 49.9 % (37.0-53.0); Immature Granulocytes Abs Auto 0.03 K/uL (0.00-0.30); Immature Granulocytes Pct Auto 0.4 %; Lymphocytes Percent Auto 47.4 % (20-44); Mean Corpuscular HGB Conc 34 gm/dL (32-36); Mean Corpuscular Hemoglobin 31 pg (26-34); Mean Corpuscular Volume 89 fL (80-100); Monocytes Percent Auto 3.8 % (0.0-11.0); Neutrophils Absolute Auto 3.61 K/uL (1.7-7.0); Neutrophils Percent Auto 47.5 % (42.0-72.0); Platelet Count* 138 K/uL (140-440); RDW Coefficient of Variation % 13.1 % (11.5-15.5); Red Blood Count 5.58 m/uL (4.30-5.90); White Blood Count* 7.61 K/uL (4.50-11.00)
[2023-08-21 14:47] LABS: Slide Review Reflex No
[2023-08-21] MEDS: 0.9 % SODIUM CHLORIDE 1000 ml 1,000 ML IV (14:47)
[2023-08-21] MEDS: ONDANSETRON 2 MG/ML inj 4 MG IVP (14:47)
[2023-08-21 14:55] LABS: Albumin* 4.7 g/dL (3.3-5.0); Chloride* 105 mmol/L (96-114); Sodium* 145 mmol/L (135-149)
[2023-08-21 14:56] LABS: Potassium* 3.6 mmol/L (3.6-5.1)
[2023-08-21 14:57] LABS: Bilirubin Total* 0.6 mg/dL (0.1-1.5); Creatinine* 0.8 mg/dL (0.5-1.5); Est. Creatinine Clearance* 141.46; Estimated Glomerular Filt Rate 118 ml/min
[2023-08-21 14:58] LABS: Alanine Aminotransferase* 22 U/L (4-50); Alkaline Phosphatase* 77 U/L (40-150); Anion Gap 15 mEq/L (7-15); Aspartate Amino Transferase* 41 U/L (12-35); Blood Urea Nitrogen* 13 mg/dL (5-24); Calcium* 8.8 mg/dL (8.4-10.6); Carbon Dioxide* 25 mmol/L (20-32); Glucose* 118 mg/dL (60-115); Lipase* 198 U/L (23-300); Magnesium* 2.3 mg/dL (1.5-2.6); Total Protein* 7.8 g/dL (6.0-8.3)
[2023-08-21 15:02] LABS: Acetaminophen* < 10.0 ug/mL (10.0-30.0); Salicylate* < 1.0 mg/dL (1.0-10)
[2023-08-21 15:09] LABS: Ethanol* 0.47 % (0.01-0.03)
[2023-08-21 15:36] LABS: Amphetamine Screen Urine Negative (Negative); Barbiturate Screen Urine Negative (Negative); Benzodiazepines Screen Urine POSITIVE (Negative); Cannabinoid Screen Urine POSITIVE (Negative); Cocaine Screen Urine Negative (Negative); Methadone Screen Urine Negative (Negative); Methamphetamines Screen Urine Negative (Negative); Opiate Screen Urine Negative (Negative); Oxycodone Screen Urine Negative (Negative); Phencyclidine Screen Urine Negative (Negative); Tricyclic Antidepressant Urine Negative (Negative)
[2023-08-21] MEDS: LACTATED RINGERS 1000 ML 1,000 ML 500 ML IV ×2 (15:57→19:59)
--- NOTE | 2023-08-21 18:46 | CT_ITS ---
Patient: SHAQUILLE ALARCON Facility:?[facility] Patient ID:?[id number] Site Patient ID:?[id number]. Site :?1990 Study:?CT-Head w/o-08/21/2023 7:46:17 PM Ordering Physician:Parish Final Report: INDICATION: Fall. TECHNIQUE: Noncontrast CT images of the brain. COMPARISON: None. FINDINGS: The ventricles and sulci are within normal limits for patient age. No mass effect or midline shift. The cat-white differentiation is maintained. No acute intracranial hemorrhage or pathologic extra-axial fluid collection. The globes are symmetric. The calvarium is intact. The visualized paranasal sinuses and mastoid air cells are clear. IMPRESSION: No acute intracranial hemorrhage or mass effect. Please note that all CT scans at this facility use dose modulation, iterative reconstruction, and/or weight-based dosing when appropriate to reduce radiation dose to as low as reasonably achievable. Dictated by Asif Kay MD @ 08/21/2023 8:16:40 PM Signed by:?Asif Kay MD @08/21/2023 8:16:40 PM (Electronic Signature)
--- NOTE | 2023-08-21 18:47 | CT_ITS ---
Patient: SHAQUILLE ALARCON Facility:?[facility] Patient ID:?[id number] Site Patient ID:?[id number]. Site :?1990 Study:?CT-Spine Cervical w/o-08/21/2023 7:46:47 PM Ordering Physician:Parish Final Report: INDICATION: Fall. TECHNIQUE: Noncontrast CT images of the cervical spine. COMPARISON: None. FINDINGS: Straightening of the cervical lordosis. Mild rightward cervical curvature. No acute fracture, spondylolisthesis, or traumatic subluxation. Shallow posterior disc osteophyte complex and uncinate spurring at C3-4. Mild multilevel fast level facet arthropathy and uncinate spurring. No high-grade spinal canal or neural foraminal stenosis. IMPRESSION: 1. No acute fracture or traumatic subluxation. 2. Mild multilevel cervical spondylosis. Please note that all CT scans at this facility use dose modulation, iterative reconstruction, and/or weight-based dosing when appropriate to reduce radiation dose to as low as reasonably achievable. Dictated by Asif Kay MD @ 08/21/2023 8:20:15 PM Signed by:?Asif Kay MD @08/21/2023 8:20:15 PM (Electronic Signature)
[2023-08-21] MEDS: LORazepam 1 MG TABLET PO (19:59)
== END 2023-08-21 21:59 | disposition home or self-care (01) ==
PROVIDERS: Emergency Provider Family Medicine
DX: F10.129 Alcohol abuse with intoxication, unspecified (principal)
CPT/HCPCS: 36415; 70450; 72125; 80053; 80143; 80179; 80306; 82077; 83605; 83690; 83735; 85025; 94761; 96361; 96374; 99284; 99285; A9270; J2405; J7030; J7120

== ENCOUNTER 2023-08-25 04:39 | Outpatient (CLI) | payer OTHER, SELFPAY | END 2023-08-25 04:40 | disposition home or self-care (01) | LOC: AMB 09-03 11:19 | PROVIDERS: Visit Provider Family Medicine | DX: F29 Unspecified psychosis not due to a substance or known physiological condition (principal) | CPT/HCPCS: A0425; A0433 ==

== ENCOUNTER 2023-09-16 16:57 | Emergency (ER) | payer OTHER, SELFPAY ==
[2023-09-16 17:17] VITALS: BP 119/94; PULSE 141; RESP 20; TEMP 36.9; O2SAT 95; BMI 28.5
--- NOTE | 2023-09-16 17:32 | ED.ALCOHOL ---
HPI - Alcohol General Chief Complaint: Alcohol/Intoxication <Aron Haynes MD - Last Filed: 09/17/23 07:05> Stated Complaint: Alcohol withdrawal <Aron Haynes MD - Last Filed: 09/17/23 07:05> Time Seen by Provider: 09/16/23 17:18 <Aron Haynes MD - Last Filed: 09/17/23 07:05> History of Present Illness HPI narrative: With patient is a 33-year-old gentleman with a long history of alcoholism. He has been drinking heavily and now has not had any alcohol for approximately 7 hours. He is beginning to have refractory nausea vomiting and significant agitation and anxiety. He has gone through alcohol withdrawal in the past and often times needs inpatient treatment. He is very motivated to stop drinking and has not had any blood in his vomitus or bowel movements. No recent injuries no other substance abuse. <Aron Haynes MD - Last Filed: 09/17/23 07:05> Related Data Home Medications: Home Medications Medication Instructions Recorded Confirmed dextroamphetamine-amphetamine ER PO 08/21/23 20 mg 24hr capsule,extend release <Aron Haynes MD - Last Filed: 09/17/23 07:05> Allergies/Adverse Reactions: Allergies Allergy/AdvReac Type Severity Reaction Status Date / Time No Known Drug Allergies Allergy Verified 09/16/23 17:17 <Aron Haynes MD - Last Filed: 09/17/23 07:05> Review of Systems Status of ROS Reports: 10 or more systems reviewed and unremarkable except as noted in History and below <Aron Haynes MD - Last Filed: 09/17/23 07:05> [facility] Medical History: Medical History Alcohol use disorder ?F10.90 - Alcohol use, unspecified, uncomplicated (ICD-10) <Aron Haynes MD - Last Filed: 09/17/23 07:05> Family History: Family History Other Cardiovascular disease Diabetes Stroke <Aron Haynes MD - Last Filed: 04/12/24 07:05> Social History: Social History Narrative: patient lives alone in [place]. He is . He has a 10-year-old daughter that he sees on a regular schedule. 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 [facility] is a [facility] What is your current living situation?: I presently have a place to live Problems where you live: no known problems Problems where you live details: N/A In the past 12 months, utilities in danger of being shut off: no In past 12 months, lack of transportation kept you from medical appts, meetings, work, or getting things needed for daily living: no In the past 12 mos, have been you worried that your food would run out before you had money to buy more?: never true In the past 12 mos, the food you bought just didn't last and you didn't have money to buy more?: never true Highest level of school completed/degree received: some college, no degree Do you use any of these nicotine containing products: E-Cigarettes How often do you have a drink containing alcohol: 4 or more times a week Alcohol type: hard liquor AUDIT-C Alcohol total score: 4 Non-prescribed substance use: marijuana (any form) Non-prescribed substance use details: ketamine infusions Caffeine: Yes How often does anyone, including family, friends and others, physically hurt you: never How often does anyone, including family, friends and others, insult or talk down to you: never How often does anyone, including family, friends and others, threaten you with harm: never How often does anyone, including family, friends and others, scream or curse at you: never service: Yes <Aron Haynes MD - Last Filed: 09/17/23 07:05> Exam Narrative: Exam Narrative: EXAM GENERAL: Patient appears agitated and vomiting repeatedly. EYES: No scleral icterus. LYMPH: No supraclavicular or cervical lymphadenopathy. SKIN: Visible skin seen during exam normal or with benign process only. EXT: No dependent lower extremity pedal edema. HEART: Regular rate and rhythm with no murmurs, rubs, or gallops. LUNGS: Clear to auscultation bilaterally with no crackles or wheezes. ABD: Soft, non tender, non distended. PSYCH: Good eye contact, speech is not pressured. Neurologic cranial nerves 2-12 grossly intact no focal defects. <Aron Haynes MD - Last Filed: 09/17/23 07:05> Const: Vital Signs, click to edit/add: Vital Signs - 24 hr 09/16/23 17:17 09/16/23 20:08 09/16/23 21:47 Temperature 98.5 F 98.5 F Pulse Rate [Pulse Oximeter] 141 H 118 H 99 Respiratory Rate 20 12 12 Blood Pressure [Ri ght Upper Arm] 119/94 H 121/90 H 124/78 Pulse Oximetry 95 96 96 Oxygen Delivery Me thod Room Air Room Air Room Air 09/16/23 21:49 09/16/23 21:54 Temperature 98.5 F Pulse Rate [Pulse Oximeter] 99 Respiratory Rate 12 Blood Pressure [Ri ght Upper Arm] 124/78 Pulse Oximetry 98 Oxygen Delivery Me thod <Aron Haynes MD - Last Filed: 09/17/23 07:05> Vital Signs, click to edit/add: Vital Signs - 24 hr 09/16/23 17:17 09/16/23 20:08 09/16/23 21:47 Temperature 98.5 F 98.5 F Pulse Rate [Pulse Oximeter] 141 H 118 H 99 Respiratory Rate 20 12 12 Blood Pressure [Ri ght Upper Arm] 119/94 H 121/90 H 124/78 Pulse Oximetry 95 96 96 Oxygen Delivery Me thod Room Air Room Air Room Air 09/16/23 21:49 09/16/23 21:54 Temperature 98.5 F Pulse Rate [Pulse Oximeter] 99 Respiratory Rate 12 Blood Pressure [Ri ght Upper Arm] 124/78 Pulse Oximetry 98 Oxygen Delivery Me thod <Mel Galvez MD - Last Filed: 09/16/23 21:13> Course Course ED Course: Patient seen examined toxicology workup begun 1 mg of Ativan given 4 mg of Zofran 1 L normal saline started. <Aron Haynes MD - Last Filed: 09/17/23 07:05> Reevaluation(s) Time of Reevaluation #1: 20:12 <Mel Galvez MD - Last Filed: 09/16/23 21:13> Reevaluation #1: Balaji states his nausea is better, stomach is still a little off. Reviewed with him his alcoholic hepatitis and the level of elevation. We will give him another L of fluids, lactate was significantly elevated. The patient likely needs to come in with this level of transaminase degree as his nausea and vomiting is likely to be problematic. He is willing to come in, thought he probably needed some ongoing IV fluids. Will also give him Protonix 40 mg IV. <Mel Galvez MD - Last Filed: 09/16/23 21:13> Time of Reevaluation #2: 21:02 <Mel Galvez MD - Last Filed: 09/16/23 21:13> Reevaluation #2: Hospitalist talked with patient, he is telling her that he doesn't want to stay. He wants to go home, is requesting Ativan to go home but does have Klonopin at home per hospitalist. He has talked to many others wanting Ativan but I will not be providing this. <Mel Galvez MD - Last Filed: 09/16/23 21:13> Consultations Consultation #1: Reviewed with the hospitalist No Patel, she accepts. <Mel Galvez MD - Last Filed: 09/16/23 21:13> Time: 20:16 <Mel Galvez MD - Last Filed: 09/16/23 21:13> Vital Signs Vital signs: Initial Vital Signs Temperature 98.5 F 09/16/23 17:17 Temperature Source Temporal Artery Scan 09/16/23 17:17 Pulse Rate 141 H 09/16/23 17:17 Respiratory Rate 20 09/16/23 17:17 Blood Pressure 119/94 H 09/16/23 17:17 Blood Pressure Mean 102 09/16/23 17:17 Blood Pressure Position Sitting 09/16/23 17:17 Pulse Oximetry 95 09/16/23 17:17 Oxygen Delivery Method Room Air 09/16/23 17:17 Vital Signs Temperature 98.5 F 09/16/23 17:17 Pulse Rate 141 H 09/16/23 17:17 Respiratory Rate 20 09/16/23 17:17 Blood Pressure 119/94 H 09/16/23 17:17 Pulse Oximetry 95 09/16/23 17:17 Oxygen Delivery Method Room Air 09/16/23 17:17 Temperature 98.5 F 09/16/23 21:54 Pulse Rate 99 09/16/23 21:54 Respiratory Rate 12 09/16/23 21:54 Blood Pressure 124/78 09/16/23 21:54 Pulse Oximetry 98 09/16/23 21:49 Oxygen Delivery Method Room Air 09/16/23 21:47 <Aron Haynes MD - Last Filed: 09/17/23 07:05> Initial Vital Signs Temperature 98.5 F 09/16/23 17:17 Temperature Source Temporal Artery Scan 09/16/23 17:17 Pulse Rate 141 H 09/16/23 17:17 Respiratory Rate 09/16/23 17:17 Blood Pressure 119/94 H 09/16/23 17:17 Blood Pressure Mean 102 09/16/23 17:17 Blood Pressure Position Sitting 09/16/23 17:17 Pulse Oximetry 95 09/16/23 17:17 Oxygen Delivery Method Room Air 09/16/23 17:17 Vital Signs Temperature 98.5 F 09/16/23 17:17 Pulse Rate 141 H 09/16/23 17:17 Respiratory Rate 09/16/23 17:17 Blood Pressure 119/94 H 09/16/23 17:17 Pulse Oximetry 95 09/16/23 17:17 Oxygen Delivery Method Room Air 09/16/23 17:17 Temperature 98.5 F 09/16/23 21:54 Pulse Rate 99 09/16/23 21:54 Respiratory Rate 12 09/16/23 21:54 Blood Pressure 124/78 09/16/23 21:54 Pulse Oximetry 98 09/16/23 21:49 Oxygen Delivery Method Room Air 09/16/23 21:47 <Mel Galvez MD - Last Filed: 09/16/23 21:13> Medications Administered Medications: Discontinued Medications Generic Name Dose Route Start Last Admin Trade Name Freq PRN Reason Stop Dose Admin Sodium Chloride 1,000 mls @ 1,000 mls/hr 09/16/23 17:37 09/16/23 19:01 0.9 % Sodium Chloride 1000 Ml IV 09/16/23 18:36 Infused .Q1H SANTO Infusion Lactated Ringer's 1,000 mls @ 1,000 mls/hr 09/16/23 20:12 09/16/23 21:43 Lactated Ringers 1000 Ml IV 09/16/23 21:11 Infused .Q1H ONE Infusion Lorazepam 1 mg 09/16/23 17:36 09/16/23 18:04 Lorazepam 2 Mg/Ml Inj IVP 09/16/23 17:37 1 mg ONCE ONE Administration Ondansetron HCl 4 mg 09/16/23 17:35 09/16/23 18:04 Ondansetron 2 Mg/Ml Inj IVP 09/16/23 17:36 4 mg ONCE ONE Administration Pantoprazole Sodium 40 mg 09/16/23 20:12 09/16/23 20:38 Pantoprazole Sodium 40 Mg Inj IVP 09/16/23 20:13 40 mg ONCE ONE Administration <Aron Haynes MD - Last Filed: 09/17/23 07:05> Discontinued Medications Generic Name Dose Route Start Last Admin Trade Name Freq PRN Reason Stop Dose Admin Sodium Chloride 1,000 mls @ 1,000 mls/hr 09/16/23 17:37 09/16/23 19:01 0.9 % Sodium Chloride 1000 Ml IV 09/16/23 18:36 Infused .Q1H SANTO Infusion Lactated Ringer's 1,000 mls @ 1,000 mls/hr 09/16/23 20:12 09/16/23 21:43 Lactated Ringers 1000 Ml IV 09/16/23 21:11 Infused .Q1H ONE Infusion Lorazepam 1 mg 09/16/23 17:36 09/16/23 18:04 Lorazepam 2 Mg/Ml Inj IVP 09/16/23 17:37 1 mg ONCE ONE Administration Ondansetron HCl 4 mg 09/16/23 17:35 09/16/23 18:04 Ondansetron 2 Mg/Ml Inj IVP 09/16/23 17:36 4 mg ONCE ONE Administration Pantoprazole Sodium 40 mg 09/16/23 20:12 09/16/23 20:38 Pantoprazole Sodium 40 Mg Inj IVP 09/16/23 20:13 40 mg ONCE ONE Administration <Mel Galvez MD - Last Filed: 09/16/23 21:13> MDM - Alcohol Lab Data Attestation: I reviewed the patient's lab results. <Mel Galvez MD - Last Filed: 09/16/23 21:13> Labs: Lab Results 09/16/23 Range/Units 18:00 WBC 7.66 (4.50-11.00) K/uL RBC 6.68 H (4.30-5.90) m/uL Hgb 20.2 H (13.5-17.5) gm/dL Hct 59.1 H (37.0-53.0) % MCV 89 (80-100) fL MCH 30 (26-34) pg MCHC 34 (32-36) gm/dL RDW Coeff of [place] 13.1 (11.5-15.5) % Plt Count 342 (140-440) K/uL Neut % (Auto) 58.4 (42.0-72.0) % Lymph % (Auto) 35.2 (20-44) % Mcintosh % (Auto) 5.5 (0.0-11.0) % Eos % (Auto) 0.1 (0.0-7.0) % Baso % (Auto) 0.7 (0.0-3.0) % Neut # (Auto) 4.47 (1.7-7.0) K/uL Lymph # (Auto) 2.70 (0.90-2.90) K/uL Mcintosh # (Auto) 0.40 (0.00-0.90) K/UL Eos # (Auto) 0.01 (0.00-0.50) K/uL Baso # (Auto) 0.05 (0.00-0.30) K/uL Abs Immat Gran (auto) 0.01 (0.00-0.30) K/uL Imm/Tot Granulo (auto) 0.1 % INR 1.08 (0.91-1.10) APTT 33 (23-33) Seconds Sodium 145 (135-149) mmol/L Potassium 4.3 (3.6-5.1) mmol/L Chloride 104 (96-114) mmol/L Carbon Dioxide 26 (20-32) mmol/L Anion Gap 15 (7-15) mEq/L BUN 26 H (5-24) mg/dL Creatinine 1.3 (0.5-1.5) mg/dL Estimated Creat Clear 87.05 Estimated GFR 73 ml/min Glucose 118 H (60-115) mg/dL Calcium 8.9 (8.4-10.6) mg/dL Total Bilirubin 0.8 (0.1-1.5) mg/dL AST 1574 H (12-35) U/L ALT 1259 H (4-50) U/L Alkaline Phosphatase 66 (40-150) U/L Total Protein 9.0 H (6.0-8.3) g/dL Albumin 5.3 H (3.3-5.0) g/dL Amylase 228 H (18-89) U/L Lipase 136 (23-300) U/L Salicylates < 1.0 L (1.0-10) mg/dL Acetaminophen < 10.0 L (10.0-30.0) ug/mL Ethyl Alcohol 0.34 H* (0.01-0.03) % <Aron Haynes MD - Last Filed: 09/17/23 07:05> Lab Results 09/16/23 Range/Units 18:00 WBC 7.66 (4.50-11.00) K/uL RBC 6.68 H (4.30-5.90) m/uL Hgb 20.2 H (13.5-17.5) gm/dL Hct 59.1 H (37.0-53.0) % MCV 89 (80-100) fL MCH 30 (26-34) pg MCHC 34 (32-36) gm/dL RDW Coeff of [place] 13.1 (11.5-15.5) % Plt Count 342 (140-440) K/uL Neut % (Auto) 58.4 (42.0-72.0) % Lymph % (Auto) 35.2 (20-44) % Mcintosh % (Auto) 5.5 (0.0-11.0) % Eos % (Auto) 0.1 (0.0-7.0) % Baso % (Auto) 0.7 (0.0-3.0) % Neut # (Auto) 4.47 (1.7-7.0) K/uL Lymph # (Auto) 2.70 (0.90-2.90) K/uL Mcintosh # (Auto) 0.40 (0.00-0.90) K/UL Eos # (Auto) 0.01 (0.00-0.50) K/uL Baso # (Auto) 0.05 (0.00-0.30) K/uL Abs Immat Gran (auto) 0.01 (0.00-0.30) K/uL Imm/Tot Granulo (auto) 0.1 % INR 1.08 (0.91-1.10) APTT 33 (23-33) Seconds Sodium 145 (135-149) mmol/L Potassium 4.3 (3.6-5.1) mmol/L Chloride 104 (96-114) mmol/L Carbon Dioxide 26 (20-32) mmol/L Anion Gap 15 (7-15) mEq/L BUN 26 H (5-24) mg/dL Creatinine 1.3 (0.5-1.5) mg/dL Estimated Creat Clear 87.05 Estimated GFR 73 ml/min Glucose 118 H (60-115) mg/dL Calcium 8.9 (8.4-10.6) mg/dL Total Bilirubin 0.8 (0.1-1.5) mg/dL AST 1574 H (12-35) U/L ALT 1259 H (4-50) U/L Alkaline Phosphatase 66 (40-150) U/L Total Protein 9.0 H (6.0-8.3) g/dL Albumin 5.3 H (3.3-5.0) g/dL Amylase 228 H (18-89) U/L Lipase 136 (23-300) U/L Salicylates < 1.0 L (1.0-10) mg/dL Acetaminophen < 10.0 L (10.0-30.0) ug/mL Ethyl Alcohol 0.34 H* (0.01-0.03) % <Mel Galvez MD - Last Filed: 09/16/23 21:13> Discharge Plan Discharge Clinical Impression: Alcohol use disorder, Acute alcoholic hepatitis Alcoholic intoxication Qualifiers: Complication of substance-induced condition: uncomplicated Qualified Code(s): F10.920 - Alcohol use, unspecified with intoxication, uncomplicated <Aron Haynes MD - Last Filed: 09/17/23 07:05> Patient Disposition: Home, Self-Care <Aron Haynes MD - Last Filed: 09/17/23 07:05> Condition: Stable <Aron Haynes MD - Last Filed: 09/17/23 07:05> Instructions: Alcohol Use Disorder (ED), Alcoholic Hepatitis (ED) <Aron Haynes MD - Last Filed: 09/17/23 07:05> Additional Instructions: Need to seek help for your alcoholism. You need to follow up with your primary provider, need follow up for alcoholic hepatitis. <Aron Haynes MD - Last Filed: 09/17/23 07:05> Activity Level: Activity as Tolerated <Aron Haynes MD - Last Filed: 09/17/23 07:05> Activity as Tolerated <Mel Galvez MD - Last Filed: 09/16/23 21:13> Prescriptions: No Action dextroamphetamine-amphetamine 20 mg capsule,extended release 24hr PO <Aron Haynes MD - Last Filed: 09/17/23 07:05> Follow Up/Referrals: Provider,Not a Local [Primary Care Provider] - <Aron Haynes MD - Last Filed: 09/17/23 07:05> Stand Alone Forms: MyHealth Info Instructions <Aron Haynes MD - Last Filed: 09/17/23 07:05>
--- OUTSIDE RECORDS SUMMARY | 2023-09-16 17:43 | XMS_ITS | Clinical Summary ---
Author Name Unknown Organization [facility] Address [address] [place] [address] Care Team Providers Care Foreign Exchange Clerk Name Role Phone None Reported, Pcp Primary Care Provider Unavail able Source Comments Patient records contain information from all sites at [facility]. For routine questions regarding patient records, call [phone] during business hours, M-F 8:00 AM - 5:00 PM Central Time. Record requests for emergency care only can be directed to [phone] at any time.[facility] Allergies No known active allergies Medications Medication Sig Dispensed Refills Start Date End Date Status amphetamine-dextroamphe tamine (ADDERALL XR) 30 mg 24 hr capsule Take 30 mg by mouth 2 (two) times a day. 0 08/19/2023 Active Encounters Date Type Department Care Team Description 08/25/2023 5:25 AM CDT - 08/25/2023 8:46 AM CDT Emergency [facility] [address] [place] [address] Janusz Britton M.D. Posttraumatic Stress Disorder Brief (Primary Dx); Hallucination Discharge Disposition: Home or Self Care from Last 3 Months Social History Tobacco Use Types Packs/Day Years Used Date Smoking Tobacco: Some Days Cigarettes Smokeless Tobacco: Current Chew Tobacco Cessation:Ready to Q uit: Not Asked; Counseling Given: Not Answered Alcohol Use Standard Drinks/Week Comments Not Currently 0 (1 standard drink = 0.6 oz pur e alcohol) last drink 5 days ago Nutrition Answer Date Recorded Nutrition: EVOO Fat Source Unknown 08/24 Nutrition: Servings of Fruits/Vegetables per Day Not on file 08/25/2023 Dental Answer Date Recorded Dental: Regular Dentist Unknown 08/25/19 Sex and Gender Information Value Date Recorded Sex Assigned at Not on file Gender Identity Not on file Sexual Orientation Not on file Last Filed Vital Signs Vital Sign Reading Time Taken Comments Blood Pressure 116/79 08/25/2023 8:15 AM CDT Pulse 113 08/25/2023 8:30 AM CDT Temperature 37.3 ??C (99.1 ??F) 08/25/2023 8:00 AM CD T Respiratory Rate 28 08/25/2023 8:30 AM CDT Oxygen Saturation 98% 08/25/2023 8:30 AM CDT Inhaled Oxygen Concentration - - Weight 89.5 kg (197 lb 5 oz) 08/25/2023 5:28 AM CDT Height - - Body Mass Index - - Plan of Treatment Health Maintenance Due Date Last Done Comments HIV Screening 1988 Hepatitis C Screening 1988 Lipid (Cholesterol) Screening 1988 Tobacco Cessation counseling 1988 Pneumococcal vaccine (0-64 years) (2 of 2 - PCV) 09/03/2017 09/03/2016, 04/04/2008 COVID-19 Vaccine (3 - 2022- season) 2023 09/26/2020, 08/28/2020 Influenza Vaccine (#1) 2023 , 02/02/2020, 02/28/2019, Additional history exists Depression Screening (Annual PHQ-2) 06/07/2023 DTaP,Tdap,and Td Vaccines (4 - Td or Tdap) 02/23/2027 02/23/2017, 06/10/2016, 10/07/2015 Hepatitis B Vaccines Completed 02/13/2009, 05/01/2008, 04/30/2008, Additional history exists HPV Vaccines Aged Out No longer eligi ble based on patient's age to complete this topic Procedures Procedure Name Priority Date/Time Associated Diagnosis Comments MORPHOLOGY EVALUATION STAT 08/25/2023 6:28 AM CDT COMPREHENSIVE METABOLIC PANEL, S/P STAT 08/25/2023 6:28 AM CDT THYROID-STIMULATING HORMONE-SENSITIVE (S-TSH) STAT 08/25/2023 6:28 AM CDT ETHANOL, S STAT 08/25/2023 6:28 AM CDT CBC WITH DIFFERENTIAL, B STAT 08/25/2023 6:28 AM CDT ECG Routine 08/25/2023 6:08 AM CDT from Last 3 Months Results * (ABNORMAL) Morphology Evaluation (08/25/2023 6:28 AM CDT) RBC Morphology Normal 08/25/2023 7:26 AM CDT NPRG PLT Morphology Normal 08/25/2023 7:26 AM CDT NPRG PLT Estimate Decreased( A) Adequate 08/25/2023 7:26 AM CDT NPRG Blood 08/25/2023 6:28 AM CDT 08/25/2023 6:46 AM CDT Soft Results Interface LAB BLOOD ADD-ON Performing Organization Address City/[facility]/ZIP Co de Phone Number [facility] [address] [place] [address], [facility] NPRG [place] [address] [place] [address] * Ethanol Level, Serum (08/25/2023 6:28 AM CDT) Pathologist [facility] Ethanol, P <10 <10 mg/dL 08/25/2023 7:0 8 AM CDT NPRG Blood (Blood, Venous) 08/25/2023 6:28 AM CDT 08/25/2023 6:46 AM CDT Janusz Britton M.D. LAB BLOOD NON ADD-ON Performing Organization Address [facility]/ZIP Co de Phone Number [facility] [address] [place] [address], [place] [address] [place] [address] * (ABNORMAL) CBC with Differential, Blood (08/25/2023 6:28 AM CDT) Hemoglobin 15.9 13.2 - 16.6 g/dL 08/25/2023 7:21 AM CDT NPRG Hematocrit 46.4 38.3 - 48.6 % 08/25/2023 7:21 AM CDT NPRG Erythrocytes 5.07 4.35 - 5.65 x10(12)/L 08/25/2023 7:21 AM CDT NPRG MCV 91.5 78.2 - 97.9 fL 08/25/2023 7:21 AM CDT NPRG RBC Distrib Width 13.8 11.8 - 14.5 % 08/25/2023 7:21 AM CDT NPRG Platelet Count 120(L) 135 - 317 x10(9)/L 08/25/2023 7:21 AM CDT NPRG Leukocytes 9.9(H) 3.4 - 9.6 x10(9)/L 08/25/2023 7:21 AM CDT NPRG Neutrophils 8.43(H) 1.56 - 6.45 x10(9)/L 08/25/2023 7:21 AM CDT NPRG Lymphocytes 0.86(L) 0.95 - 3.07 x10(9)/L 08/25/2023 7:21 AM CDT NPRG Monocytes 0.54 0.26 - 0.81 x10(9)/L 08/25/2023 7:21 AM CDT NPRG Eosinophils 0.06 0.03 - 0.48 x10(9)/L 08/25/2023 7:21 AM CDT NPRG Basophils 0.03 0.01 - 0.08 x10(9)/L 08/25/2023 7:21 AM CDT NPRG Blood (Blood, Venous) 08/25/2023 6:28 AM CDT 08/25/2023 6:46 AM CDT Janusz Britton M.D. LAB BLOOD ADD-ON [facility] [address] [place] [address], [facility] NPRG [facility] [address] [place] [address] * S-TSH (Thyroid-Stimulating Hormone - Sensitive) (08/25/2023 6:28 AM CDT) TSH, Sensitive 2.2 0.3 - 4.2 mIU/L 08/25/2023 7:19 AM CDT NPRG Blood (Blood, Venous) 08/25/2023 6:28 AM CDT 08/25/2023 6:46 AM CDT Janusz Britton M.D. LAB BLOOD ADD-ON [facility] [address] [place] [address], [facility] NPRG [facility] [address] [place] [address] * (ABNORMAL) Comprehensive Metabolic Panel (08/25/2023 6:28 AM CDT) Potassium, P 3.1(L) 3.6 - 5.2 mmol/L 08/25/2023 7:08 AM CDT NPRG Sodium, P 139 135 - 145 mmol/L 08/25/2023 7:08 AM CDT NPRG Chloride, P 96(L) 98 - 107 mmol/L 08/25/2023 7:08 AM CDT NPRG Bicarbonate, P 20(L) 22 - 29 mmol/L 08/25/2023 7:08 AM CDT NPRG Anion Gap, P 23(H) 7 - 15 08/25/2023 7:08 AM CDT NPRG BUN (Blood Urea Nitrogen), P 14 8 - 24 mg/dL 08/25/2023 7:08 AM CDT NPRG Creatinine 1.40(H) 0.74 - 1.35 mg/dL 08/25/2023 7:08 AM CDT NPRG Estimated GFR (eGFR) 67 >=60 mL/min/BS A 08/25/2023 7:08 AM CDT NPRG Comment: Estimated GFR calculated using the 2020 CKD_EPI creatinine equation. Calcium, Total, P 10.6(H) 8.6 - 10.0 mg/dL 08/25/2023 7:08 AM CDT NPRG Glucose, P 85 70 - 140 mg/dL 08/25/2023 7:08 AM CDT NPRG Protein, Total, P 8.0(H) 6.3 - 7.9 g/dL 08/25/2023 7:08 AM CDT NPRG Albumin, P 4.7 3.5 - 5.0 g/dL 08/25/2023 7:08 AM CDT NPRG Aspartate Aminotransferase (AST), P 61(H) 8 - 48 U/L 08/25/2023 7:08 AM CDT NPRG Alkaline Phosphatase, P 63 40 - 129 U/L 08/25/2023 7:08 AM CDT NPRG Alanine Aminotransferase (ALT), P 29 7 - 55 U/L 08/25/2023 7:08 AM CDT NPRG Bilirubin, Total, P 0.8 0.0 - 1.2 mg/dL 08/25/2023 7:08 AM CDT NPRG Blood (Blood, Venous) 08/25/2023 6:28 AM CDT 08/25/2023 6:46 AM CDT Janusz Britton M.D. LAB BLOOD ADD-ON [facility] [address] [place] [address], [facility] NPRG [facility] [address] [place] [address] * ECG 12 Lead (08/25/2023 6:08 AM CDT) Ventricular Rate ECG/Min 113 BPM MUSE MD Interval 170 ms MUSE QRSD Interval 94 ms MUSE QT Interval 344 ms MUSE QTC Interval 471 ms MUSE P [place] 52 degrees MUSE R [place] 29 degrees MUSE T Wave [place] 55 degrees MUSE 08/25/2023 6:08 AM CDT 08/25/2023 6:25 AM CDT Impressions MUSE - 08/25/2023 6:25 AM CDT Sinus tachycardia Otherwise normal ECG No previous ECGs available Reviewed by CAHGO Lantigua Narrative Procedure Note Nicholas Johnson M.D. - 08/25/2023 IMPRESSION: Sinus tachycardia Otherwise normal ECG No previous ECGs available Reviewed by CHAGO Lantigua Janusz Britton M.D. ECG ORDERABLES MUSE NA from Last 3 Months Care Teams Foreign Exchange Clerk Relationship Specialty Start Date End Date None Reported, Pcp PCP - General Family Medicine 08/25/23
--- OUTSIDE RECORDS SUMMARY | 2023-09-16 17:44 | XMS_ITS | Clinical Summary ---
Author Name Unknown Organization [facility] Address [address] [place] [id number] Care Team Providers Care Thread Cutter Tender Name Role Phone Provider, No Primary Primary [...] 5:01 AM 03/26/2023 4:25 PM Care Teams Thread Cutter Tender Relationship Specialty Start Date End Date Provider, No Primary . BOB SMITH [id number] PCP - General 03/23/23 Additional Source Comments PLEASE NOTE: Replies to this message will not be received.[facility] and [facility]
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
--- OUTSIDE RECORDS SUMMARY | 2023-09-16 17:44 | XMS_ITS | Referral Summary ---
Author Name Unknown Organization [facility] Address [address] [place] [address] Care Team Providers Care Electronics Department Manager Name Role Phone None Reported, Pcp Primary Care Provider Unavail able Source Comments Patient records contain information from all sites at [facility]. For routine questions regarding patient records, call [phone] during business hours, M-F 8:00 AM - 5:00 PM Central Time. Record requests for emergency care only can be directed to [phone] at any time.[facility] Encounters Date Type Department Care Team Description 08/25/2023 5:25 AM CDT - 08/25/2023 8:46 AM CDT Emergency [facility] [address] [place] [phone] Janusz Britton M.D. Posttraumatic Stress Disorder Brief (Primary Dx); Hallucination Discharge Disposition: Home or Self Care from Last 3 Months Allergies No known active allergies Medications Medication Sig Dispensed Refills Start Date End Date Status amphetamine-dextroamphe tamine (ADDERALL XR) 30 mg 24 hr capsule Take 30 mg by mouth 2 (two) times a day. 0 08/19/2023 Active Social History Tobacco Use Types Packs/Day Years [...] Mass Index - - Plan of Treatment Not on file Procedures Procedure Name Priority Date/Time Associated Diagnosis [...] CDT Soft Results Interface LAB BLOOD ADD-ON [facility] [address] [place] [address], [facility] NPRG [address] [address] * Ethanol Level, Serum (08/25/2023 6:28 AM CDT) Pathologist [facility] Ethanol, P <10 <10 mg/dL 08/25/2023 7:0 8 AM CDT NPRG Blood (Blood, Venous) 08/25/2023 6:28 AM CDT 08/25/2023 6:46 AM CDT Janusz Britton M.D. LAB BLOOD NON ADD-ON [facility] [address] [place] [address], [facility] NPRG [address] [address] * (ABNORMAL) CBC with Differential, Blood (08/25/2023 6:28 AM CDT) Pathologist [facility] Hemoglobin 15.9 13.2 - 16.6 g/dL 08/25/2023 [...] CDT Janusz Britton M.D. LAB BLOOD ADD-ON [facility] [address] [place] [address], [facility] NPRG [address] [address] * S-TSH (Thyroid-Stimulating Hormone - Sensitive) (08/25/2023 6:28 AM CDT) TSH, Sensitive 2.2 0.3 - 4.2 mIU/L 08/25/2023 7:19 AM CDT NPRG Blood (Blood, Venous) 08/25/2023 6:28 AM CDT 08/25/2023 6:46 AM CDT Janusz Britton M.D. LAB BLOOD ADD-ON [facility] [address] [place] [address], [facility] NPRG [address] [address] * (ABNORMAL) Comprehensive Metabolic Panel (08/25/2023 6:28 [...] CDT Janusz Britton M.D. LAB BLOOD ADD-ON [facility] [address] [place] [address], [facility] NPRG [facility] [address] [place] [address] * ECG 12 Lead (08/25/2023 6:08 AM CDT) Ventricular Rate ECG/Min 113 BPM MUSE MD Interval 170 ms MUSE QRSD Interval 94 ms MUSE QT Interval 344 ms MUSE QTC Interval 471 ms MUSE P Ira 52 degrees MUSE R Ira 29 degrees MUSE T Wave Ira 55 degrees MUSE 08/25/2023 6:08 AM CDT 08/25/2023 6:25 AM CDT Impressions MUSE - 08/25/2023 6:25 AM CDT Sinus tachycardia Otherwise normal ECG No previous ECGs available Reviewed by CHAGO Lantigua Narrative Procedure Note Nicholas Johnson M.D. - 08/25/2023 IMPRESSION: Sinus tachycardia Otherwise normal ECG No previous ECGs available Reviewed by CHAGO Lantigua Janusz Britton M.D. ECG ORDERABLES Performing Organization Address City/[facility] Co de Phone Number MUSE NA from Last 3 Months Care Teams Electronics Department Manager Relationship Specialty Start Date End Date None Reported, Pcp PCP - General Family Medicine 08/25/23
--- OUTSIDE RECORDS SUMMARY | 2023-09-16 17:44 | XMS_ITS | Clinical Summary ---
Author Name Unknown Organization [facility] Address [address], [place] [address] Care Team Providers Care Advanced Practice Rn Name Role Phone Feliciano Dexter MD Primary Care Provider [phone] Source Comments You are receiving this document as you are listed as the primary care provider,follow-up provider, or the patient has been referred to you for consultation.This is in compliance with the Medicare and[facility] EHR Incentive Program,which states Providers who transition their patient to another setting of careor provider of care or refers their patient to another provider of care shouldprovide summary care record for each transition of care or referral. [facility] Allergies No known active allergies Medications Medication Sig Dispensed Refills Start Date End Date Status amphetamine-dextroamp hetamine XR (ADDERALL XR) 20 MG 24 hour release capsuleIndications:AD HD (attention deficit hyperactivity disorder), inattentive type (HRC) Take 2 Capsules (40 mg) by mouth daily. Do not start before October 30, 2022. 60 Capsule 10/30/2022 Active Active Problems Problem Noted Date [...] Qiv Multidose Vial 0.25 (6-35 Mos) 02/28 [id number] 04/12/2013 Influenza (Flucelvax), Preserv Free QIV 03/17/20 18 Influenza (Fluzone 0.25, 6-35 mos) 01/23/2017 Influenza IIV4 (Quadrivalent) 0.5mL ([address]) 08/2020,02/02/2020,04/13/2014 Moderna Monovalent 12+ 09/26/2020,08/28/2020 Tdap 02/23/2017 [...] ??C (98.2 ??F) 07/08/2021 8 :30 AM NURSE ORTHO Patient Reported Respiratory Rate 18 10/12/2017 11:4 [...] Comments Hep C Screening (Preventive Services) 1988 HIV Screening (Preventive Services) 2004 HepB (1) 2007 COVID-19 Vaccine (3 - season) 2023 09/26/2020, [...] Procedure Name Priority Date/Time Associated Diagnosis Comments CHOLESTEROL, TOTAL AND HDL Routine 10/06/2021 12:58 PM CDT Well adult exam from Last 3 Months or Most Recently Relevant to Health Maintenance Results * (ABNORMAL) Cholesterol Total and HDL (10/06/2021 12:58 PM CDT) Cholesterol 204(H) 0 - 199 mg/dL 10/06/2021 2:44 PM CDT [facility] HDL Cholesterol 29(L) >=40 mg/dL 2:44 PM CDT [facility] Non HDL Chol, Calculated 175(H) <=159 mg/dL 10/06/2021 2:44 PM CDT [facility] Blood Venipuncture / Unknown 10/06/2021 12:58 PM CDT 10/06/2021 12:58 PM CDT Feliciano Dexter MD LAB_1 [facility] [address] [facility] [place] [address], [facility] [phone] from Last 3 Months or Most Recently Relevant to Health Maintenance Care Teams Advanced Practice Rn Relationship Specialty Start [place] [address] [place] [address] [address] PCP - General Family Practice 02/22/17
--- OUTSIDE RECORDS SUMMARY | 2023-09-16 17:44 | XMS_ITS | Encounter Summary ---
Author Name Unknown Organization [facility] Address [address] [place] [place] [address] Care Team Providers Care Crane Follower Name Role Phone Home - [place], [place] [facility] Primary C are Provider Reason for Visit * Reason Onset Date Comments MH/CD Inpatient 07/22/2023 Encounter Details Date Type Department Care Team (Late st Contact Info) Description 07/22/2023 Telephone [facility] Behavioral Health Intake [address] [place] [phone] Generic, Behavioral Intake, MH/CD Inpatient Social History Tobacco Use Types Packs/Day Years Used Date Smoking Tobacco: Never Assessed Adolescent Education Answer Date Record ed Getting School Help Needed Not on file 07/22 Sex and Gender Information Value Date Recorded Sex Assigned at Not on file Gender Identity Not on file Sexual Orientation Not on file documented as of this encounter Miscellaneous Notes * Telephone Encounter - Austen Betsy Gonzales - 07/22/2023 9:21 AM CST S: [facility] , GODWIN Cardenas calling at 9:21 AM with clinical on a 33 year old/Male presenting for alcohol detox. B: Pt presents for ETOH detox. Currently reports drinking 1 liter vodka/daily Patient reports last use was 10 hrs. Pt DARIUS: 0.35 Pt endorses hx of DT Pt endorses hx of seizures. Last seizure: Unknown Pt endorsing the following symptoms of withdrawal: Nausea MSSA Score: 5 Pt denies acute mental health or medical concerns. Pt denies other drug use: (!) ALCOHOL Amount/frequency: Daily Does Pt have a detox care plan in [facility]? No Does pt present with specific needs, assistive devices, or exclusionary criteria? None Is the patient ambulating, eating and drinking in the ED? Yes A: Pt meets criteria to be presented for IP detox admission. Patient is voluntary COVID Symptoms: No If yes, COVID test required Utox: Not ordered, intake to request lab Magnesium: WNL CMP: Abnormalities: Anion Gap 17,Calcium 7.9,Chloride 96,Glucose 153,AST 131, ALT 94 CBC: WNL HCG: N/A R: Patient cleared and ready for behavioral bed placement: Yes Pt is meeting criteria for presentation to 3A/CD Does Patient need a Transfer Center request created? Yes, filing writer completed Transfer Center request at: 9:42 AM 9:44 AM Paged Eli. Pt discharged [facility] at 9:59 AM. Pt removed from [facility]. Intake no longer following for detox admission. [employer]ISH[employer] documented in this encounter Plan of Treatment Not on file documented as of this encounter Visit Diagnoses Not on filedocumented in this encounter Care Teams Crane Follower Relationship Specialty Start Date End Date Home - [address] [address] PCP - General 07/22/23 documented as of this encounter
--- OUTSIDE RECORDS SUMMARY | 2023-09-16 17:44 | XMS_ITS | Clinical Summary ---
Author Name Unknown Organization [facility] Address [address] [place] [address]. [place] [address] Care Team Providers Care Hotel Or Motel Manager Name Role Phone Home - [place], [place] [facility] Primary C are Provider Allergies No known active allergies Medications Medication Sig Dispensed Refills Start Date End Date Status chlordiazePOXIDE (LIBRIUM) 25 MG capsule Take 1-2 capsules (25-50 mg) by mouth 4 times daily as needed for anxiety or withdrawal 24 capsule 07/22/2023 Active gabapentin (NEURONTIN) 300 MG capsule Take 1 capsule (300 mg) by mouth 3 times daily for 3 days 9 capsule 07/22/2023 Active Encounters Date Type Department Care Team Description 07/22/2023 5:36 AM UTILITY WORKER PRODUCTION - 07/22/2023 9:50 AM UTILITY WORKER PRODUCTION Emergency [facility] Emergency Dept [address] [place] [address] Ayo Boyce MD Alcohol use disorder Discharge Disposition: Home or Self Care 07/22/2023 Telephone [facility] Behavioral Health Intake [address] [place] [address] Generic, Behavioral Intake, MH/CD Inpatient 07/22/2023 Travel from Last 3 Months Social History [...] Sign Reading Time Taken Comments Blood Pressure 156/96 07/22/2023 9:49 AM UTILITY WORKER PRODUCTION Pulse 102 07/22/2023 9:49 AM UTILITY WORKER PRODUCTION Temperature 36.4 ??C (97.5 ??F) 07/22/2023 5:17 AM CS T Respiratory Rate 20 07/22/2023 9:49 AM UTILITY WORKER PRODUCTION Oxygen Saturation 98% 07/22/2023 9:49 AM UTILITY WORKER PRODUCTION Inhaled Oxygen Concentration - - Weight 95.3 kg (210 lb) 07/22/2023 5:17 AM UTILITY WORKER PRODUCTION Height 182.9 cm (6') 07/22/2023 5:17 AM UTILITY WORKER PRODUCTION Body Mass Index 28.48 07/22/2023 5:17 AM UTILITY WORKER PRODUCTION Plan of Treatment Health Maintenance Due Date Last Done Comments ADVANCE CARE PLANNING 1988 ANNUAL REVIEW OF HM ORDERS 1988 HIV SCREENING 2003 HEPATITIS C SCREENING 2006 IPV IMMUNIZATION (2 of 3 - Adult catch-up series) 05/28/2008 04/30/2008 YEARLY PREVENTIVE VISIT 10/06/2022 10/06/2021 COVID-19 Vaccine (3 - season) 2023 09/26/2020, 08/28/2020 INFLUENZA VACCINE (#1) 2023 , 02/02/2020, 02/28/2019, Additional history exists PHQ-2 (once per calendar year) 2023 GLUCOSE 07/22/2026 07/22/2023 DTAP/TDAP/TD IMMUNIZATION (5 - Td or Tdap) 02/23/2027 02/23/2017, 06/10/2016, 10/07/2015, Additional history exists MENINGITIS IMMUNIZATION Aged Out 04/04/2008 No l onger eligible based on patient's age to complete this topic HEPATITIS B IMMUNIZATION Completed 009, 05/01/2008, 04/30/2008, Additional history exists Pneumococcal Vaccine: Pediatrics (0 to 5 Years) and At-Risk Patients (6 to 64 Years) Aged Out 09/03/2016, 04/04/2008 No longer eligibl e based on patient's age to complete this topic HPV IMMUNIZATION Aged Out No longer e ligible based on patient's age to complete this topic RSV MONOCLONAL ANTIBODY Aged Out No l onger eligible based on patient's age to complete this topic Procedures Procedure Name Priority Date/Time Associated Diagnosis Comments CBC WITH PLATELETS & DIFFERENTIAL STAT 07/22/2023 5:41 AM UTILITY WORKER PRODUCTION PHOSPHORUS STAT 07/22/2023 5:41 AM UTILITY WORKER PRODUCTION MAGNESIUM STAT 07/22/2023 5:41 AM UTILITY WORKER PRODUCTION EXTRA RED TOP TUBE STAT 07/22/2023 5: 41 AM UTILITY WORKER PRODUCTION EXTRA BLUE TOP TUBE STAT 07/22/2023 5 :41 AM UTILITY WORKER PRODUCTION CBC WITH PLATELETS AND DIFFERENTIAL STAT 07/22/2023 5:41 AM UTILITY WORKER PRODUCTION EXTRA TUBE STAT 07/22/2023 5:41 AM UTILITY WORKER PRODUCTION ETHYL ALCOHOL LEVEL STAT 07/22/2023 5 :41 AM UTILITY WORKER PRODUCTION LIPASE STAT 07/22/2023 5:41 AM UTILITY WORKER PRODUCTION COMPREHENSIVE METABOLIC PANEL STAT 07/22/2023 5:41 AM UTILITY WORKER PRODUCTION from Last 3 Months Results * Extra Red Top Tube (07/22/2023 5:41 AM UTILITY WORKER PRODUCTION) Hold Specimen [facility] 07/22/2023 7:04 AM UTILITY WORKER PRODUCTION [facility] Blood STRUCTURE OF RIGHT UPPER LIMB / Unknown Venipuncture / Unknown 07/22/2023 5:41 AM UTILITY WORKER PRODUCTION 07/22/2023 5:54 AM UTILITY WORKER PRODUCTION Ayo Boyce MD LAB - BLOOD ORD ERABLES [facility] Lab [address] Lab (1st floor, no room number) [place] [address], [facility] [phone] * Extra Blue Top Tube (07/22/2023 5:41 AM UTILITY WORKER PRODUCTION) Hold Specimen [facility] 07/22/2023 7:04 AM UTILITY WORKER PRODUCTION LABORATORY Blood STRUCTURE OF RIGHT UPPER LIMB / Unknown Venipuncture / Unknown 07/22/2023 5:41 AM UTILITY WORKER PRODUCTION 07/22/2023 5:54 AM UTILITY WORKER PRODUCTION Ayo Boyce MD LAB - BLOOD ORD ERABLES [facility] [address] Lab (1st floor, no room number) [place] [address], [facility] [phone] * CBC with platelets and differential (07/22/2023 5:41 AM UTILITY WORKER PRODUCTION) WBC Count 5.5 4.0 - 11.0 10e3/uL 07/22/2023 5:57 AM UTILITY WORKER PRODUCTION [facility] RBC Count 5.32 4.40 - 5.90 10e6/uL 07/22/2023 5:57 AM UTILITY WORKER PRODUCTION [facility] Hemoglobin 16.9 13.3 - 17.7 g/dL 07/22/2023 5:57 AM UTILITY WORKER PRODUCTION [facility] Hematocrit 47.2 40.0 - 53.0 % 07/22/2023 5:57 AM UTILITY WORKER PRODUCTION [facility] MCV 89 78 - 100 fL 07/22/2023 5:57 AM UTILITY WORKER PRODUCTION [facility] MCH 31.8 26.5 - 33.0 pg 07/22/2023 5:57 AM UTILITY WORKER PRODUCTION [facility] MCHC 35.8 31.5 - 36.5 g/dL 07/22/2023 5:57 AM UTILITY WORKER PRODUCTION [facility] RDW 13.1 10.0 - 15.0 % 07/22/2023 5:57 AM UTILITY WORKER PRODUCTION [facility] Platelet Count 183 150 - 450 10e3/uL 07/22/2023 5:57 AM UTILITY WORKER PRODUCTION [facility] % Neutrophils 31 % 07/22/2023 5:57 AM UTILITY WORKER PRODUCTION [facility] % Lymphocytes 63 % 07/22/2023 5:57 AM UTILITY WORKER PRODUCTION [facility] % Monocytes 5 % 07/22/2023 5:57 AM UTILITY WORKER PRODUCTION [facility] % Eosinophils 0 % 07/22/2023 5:57 AM UTILITY WORKER PRODUCTION [facility] % Basophils 1 % 07/22/2023 5:57 AM UTILITY WORKER PRODUCTION [facility] % Immature Granulocytes 0 % 07/22/2023 5:57 AM UTILITY WORKER PRODUCTION [facility] NRBCs per 100 WBC 0 <1 /100 024 5:57 AM UTILITY WORKER PRODUCTION [facility] Absolute Neutrophils 1.7 1.6 - 8.3 10e3/uL 07/22/2023 5:57 AM UTILITY WORKER PRODUCTION [facility] Absolute Lymphocytes 3.5 0.8 - 5.3 10e3/uL 07/22/2023 5:57 AM UTILITY WORKER PRODUCTION [facility] Absolute Monocytes 0.3 0.0 - 1.3 10e3/uL 07/22/2023 5:57 AM UTILITY WORKER PRODUCTION [facility] Absolute Eosinophils 0.0 0.0 - 0.7 10e3/uL 07/22/2023 5:57 AM UTILITY WORKER PRODUCTION [facility] Absolute Basophils 0.0 0.0 - 0.2 10e3/uL 07/22/2023 5:57 AM UTILITY WORKER PRODUCTION [facility] Absolute Immature Granulocytes 0.0 <=0.4 10e3/uL 07/22/2023 5:57 AM UTILITY WORKER PRODUCTION [facility] Absolute NRBCs 0.0 10e3/uL 07/22/2023 5:57 AM UTILITY WORKER PRODUCTION [facility] Blood STRUCTURE OF RIGHT UPPER LIMB / Unknown Venipuncture / Unknown 07/22/2023 5:41 AM UTILITY WORKER PRODUCTION 07/22/2023 5:54 AM UTILITY WORKER PRODUCTION Ayo Boyce MD LAB - BLOOD ORD ERABLES [facility] [address] Lab (1st floor, no room number) [place] [address], [facility] [phone] * (ABNORMAL) Phosphorus (07/22/2023 5:41 AM UTILITY WORKER PRODUCTION) Phosphorus 2.0(L) 2.5 - 4.5 mg/dL 07/22/2023 7:16 AM UTILITY WORKER PRODUCTION [facility] Blood STRUCTURE OF RIGHT UPPER LIMB / Unknown Venipuncture / Unknown 07/22/2023 5:41 AM UTILITY WORKER PRODUCTION 07/22/2023 5:54 AM UTILITY WORKER PRODUCTION Ayo Boyce MD LAB - BLOOD ORD ERABLES [facility] Lab [address] Lab (1st floor, no room number) [place] [address], [facility] [phone] * Magnesium (07/22/2023 5:41 AM UTILITY WORKER PRODUCTION) Magnesium 2.0 1.7 - 2.3 mg/dL 07/22/2023 7:16 AM UTILITY WORKER PRODUCTION LABORATORY Blood STRUCTURE OF RIGHT UPPER LIMB / Unknown Venipuncture / Unknown 07/22/2023 5:41 AM UTILITY WORKER PRODUCTION 07/22/2023 5:54 AM UTILITY WORKER PRODUCTION Ayo Boyce MD LAB - BLOOD ORD ERABLES LABORATORY [facility] [address] [facility] [facility] Lab (1st floor, no room number) [place] [address], [facility] [phone] * (ABNORMAL) Lipase (07/22/2023 5:41 AM UTILITY WORKER PRODUCTION) Lipase 89(H) 13 - 60 U/L 07/22/2023 6:17 AM [facility] Blood STRUCTURE OF RIGHT UPPER LIMB / Unknown Venipuncture / Unknown 07/22/2023 5:41 AM UTILITY WORKER PRODUCTION 07/22/2023 5:54 AM UTILITY WORKER PRODUCTION Ayo Boyce MD LAB - BLOOD ORD ERABLES Performing Organization Address City/[facility]/ZIP Co de Phone Number LABORATORY [facility] Lab [address] Lab (1st floor, no room number) [place] [phone], [facility] [phone] * (ABNORMAL) Comprehensive metabolic panel (07/22/2023 5:41 AM UTILITY WORKER PRODUCTION) Sodium 138 135 - 145 mmol/L 07/22/2023 6:17 AM [facility] Comment:Reference intervals for this test were updated on 03/02/2023 to more accurately reflect our healthy population. There may be differences in the flagging of prior results with similar values performed with this method. Interpretation of those prior results can be made in the context of the updated reference intervals. Potassium 3.7 3.4 - 5.3 mmol/L 07/22/2023 6:17 AM [facility] Carbon Dioxide (CO2) 25 22 - 29 mmol/L 07/22/2023 6:17 AM [facility] Anion Gap 17(H) 7 - 15 mmol/L 07/22/2023 6:17 AM [facility] Urea Nitrogen 11.8 6.0 - 20.0 mg/dL 07/22/2023 6:17 AM [facility] Creatinine 0.82 0.67 - 1.17 mg/dL 07/22/2023 6:17 AM [facility] GFR Estimate >90 >60 mL/min/1. 73m2 07/22/2023 6:17 AM [facility] Calcium 7.9(L) 8.6 - 10.0 mg/dL 07/22/2023 6:17 AM [facility] Chloride 96(L) 98 - 107 mmol/L 07/22/2023 6:17 AM [facility] Glucose 153(H) 70 - 99 mg/dL 07/22/2023 6:17 AM [facility] Alkaline Phosphatase 71 40 - 150 U/L 07/22/2023 6:17 AM [facility] Comment:Reference intervals for this test were updated on 04/20/2023 to more accurately reflect our healthy population. There may be differences in the flagging of prior results with similar values performed with this method. Interpretation of those prior results can be made in the context of the updated reference intervals. AST 131(H) 0 - 45 U/L 07/22/2023 6:17 AM [facility] Comment:Reference intervals for this test were updated on 11/16/2022 to more accurately reflect our healthy population. There may be differences in the flagging of prior results with similar values performed with this method. Interpretation of those prior results can be made in the context of the updated reference intervals. ALT 94(H) 0 - 70 U/L 07/22/2023 6:17 AM [facility] Comment:Reference intervals for this test were updated on 11/16/2022 to more accurately reflect our healthy population. There may be differences in the flagging of prior results with similar values performed with this method. Interpretation of those prior results can be made in the context of the updated reference intervals. Protein Total 6.8 6.4 - 8.3 g/dL 07/22/2023 6:17 AM [facility] Albumin 4.2 3.5 - 5.2 g/dL 07/22/2023 6:17 AM [facility] Bilirubin Total 0.9 <=1.2 mg/dL 07/22/2023 6:17 AM [facility] Blood STRUCTURE OF RIGHT UPPER LIMB / Unknown Venipuncture / Unknown 07/22/2023 5:41 AM UTILITY WORKER PRODUCTION 07/22/2023 5:54 AM UTILITY WORKER PRODUCTION Ayo Boyce MD LAB - BLOOD ORD ERABLES [facility] Lab [address] Lab (1st floor, no room number) [place] [address], [facility] [phone] * (ABNORMAL) Alcohol level blood (07/22/2023 5:41 AM UTILITY WORKER PRODUCTION) Alcohol ethyl 0.35(HH) <=0.01 g/dL 07/22/2023 6:26 AM UTILITY WORKER PRODUCTION LABORATORY Blood STRUCTURE OF RIGHT UPPER LIMB / Unknown Venipuncture / Unknown 07/22/2023 5:41 AM UTILITY WORKER PRODUCTION 07/22/2023 5:54 AM UTILITY WORKER PRODUCTION Ayo Boyce MD LAB - BLOOD ORD ERABLES [facility] Lab [address] Lab (1st floor, no room number) [place] [address], [facility] [phone] from Last 3 Months Care Teams Hotel Or Motel Manager Relationship Specialty Start Date End Date Home - [address] [phone] PCP - General 07/22/23
--- OUTSIDE RECORDS SUMMARY | 2023-09-16 17:44 | XMS_ITS | Encounter Summary ---
Author Name Unknown Organization [facility] Address [address] [place] [address] Care Team Providers Care Bankruptcy Attorney Name Role Phone Home - [place], [place] [facility] Primary C are Provider Encounter Details Date Type Department Care Team (Latest Contact Info) Description 07/22/2023 Travel Social History Tobacco Use Types Packs/Day [...] on filedocumented in this encounter Care Teams Bankruptcy Attorney Relationship Specialty Start Date End Date Home - [place], [place] [facility] [address] [place] [address] PCP - General 07/22/23 documented as of this encounter
--- OUTSIDE RECORDS SUMMARY | 2023-09-16 17:44 | XMS_ITS | Referral Summary ---
Author Name Unknown Organization [facility] Address Critical access hospital0 [facility] [place] [address] Care Team Providers Care Conversion Developer Name Role Phone Home - [place], [place] [facility] Primary C are Provider Encounters Date Type Department Care Team Description 07/22/2023 Telephone [facility] Behavioral Health Intake [address] [place] [phone] Generic, Behavioral Intake, MH/CD Inpatient 07/22/2023 Travel 07/22/2023 5:36 AM MORTICIAN SUPPLIES SALES REPRESENTATIVE - 07/22/2023 9:50 AM MORTICIAN SUPPLIES SALES REPRESENTATIVE Emergency [facility] Emergency Dept [address] [place] [address] Ayo Boyce MD Alcohol use disorder Discharge Disposition: Home or Self Care from [...] for 3 days 9 capsule 07/22/2023 Active Social History Tobacco Use Types Packs/Day [...] Comments Blood Pressure 156/96 07/22/2023 9:49 AM MORTICIAN SUPPLIES SALES REPRESENTATIVE Pulse 102 07/22/2023 9:49 AM MORTICIAN SUPPLIES SALES REPRESENTATIVE Temperature 36.4 ??C (97.5 ??F) 07/22/2023 5:17 AM CS T Respiratory Rate 20 07/22/2023 9:49 AM MORTICIAN SUPPLIES SALES REPRESENTATIVE Oxygen Saturation 98% 07/22/2023 9:49 AM MORTICIAN SUPPLIES SALES REPRESENTATIVE Inhaled Oxygen Concentration - - Weight 95.3 kg (210 lb) 07/22/2023 5:17 AM MORTICIAN SUPPLIES SALES REPRESENTATIVE Height 182.9 cm (6') 07/22/2023 5:17 AM MORTICIAN SUPPLIES SALES REPRESENTATIVE Body Mass Index 28.48 07/22/2023 5:17 AM MORTICIAN SUPPLIES SALES REPRESENTATIVE Plan of Treatment Not on file Procedures Procedure Name Priority Date/Time Associated Diagnosis Comments CBC WITH PLATELETS & DIFFERENTIAL STAT 07/22/2023 5:41 AM MORTICIAN SUPPLIES SALES REPRESENTATIVE PHOSPHORUS STAT 07/22/2023 5:41 AM MORTICIAN SUPPLIES SALES REPRESENTATIVE MAGNESIUM STAT 07/22/2023 5:41 AM MORTICIAN SUPPLIES SALES REPRESENTATIVE EXTRA RED TOP TUBE STAT 07/22/2023 5: 41 AM MORTICIAN SUPPLIES SALES REPRESENTATIVE EXTRA BLUE TOP TUBE STAT 07/22/2023 5 :41 AM MORTICIAN SUPPLIES SALES REPRESENTATIVE CBC WITH PLATELETS AND DIFFERENTIAL STAT 07/22/2023 5:41 AM MORTICIAN SUPPLIES SALES REPRESENTATIVE EXTRA TUBE STAT 07/22/2023 5:41 AM MORTICIAN SUPPLIES SALES REPRESENTATIVE ETHYL ALCOHOL LEVEL STAT 07/22/2023 5 :41 AM MORTICIAN SUPPLIES SALES REPRESENTATIVE LIPASE STAT 07/22/2023 5:41 AM MORTICIAN SUPPLIES SALES REPRESENTATIVE COMPREHENSIVE METABOLIC PANEL STAT 07/22/2023 5:41 AM MORTICIAN SUPPLIES SALES REPRESENTATIVE from Last 3 Months Results * Extra Red Top Tube (07/22/2023 5:41 AM MORTICIAN SUPPLIES SALES REPRESENTATIVE) Hold Specimen [facility] 07/22/2023 7:04 AM MORTICIAN SUPPLIES SALES REPRESENTATIVE LABORATORY Blood STRUCTURE OF RIGHT UPPER LIMB / Unknown Venipuncture / Unknown 07/22/2023 5:41 AM MORTICIAN SUPPLIES SALES REPRESENTATIVE 07/22/2023 5:54 AM MORTICIAN SUPPLIES SALES REPRESENTATIVE Ayo Boyce MD LAB - BLOOD ORD ERABLES LABORATORY [facility] Acute Care Lab [address] Lab (1st floor, no room number) [place] [address], [place] [phone] * Extra Blue Top Tube (07/22/2023 5:41 AM MORTICIAN SUPPLIES SALES REPRESENTATIVE) Hold Specimen [facility] 07/22/2023 7:04 AM MORTICIAN SUPPLIES SALES REPRESENTATIVE [facility] Blood STRUCTURE OF RIGHT UPPER LIMB / Unknown Venipuncture / Unknown 07/22/2023 5:41 AM MORTICIAN SUPPLIES SALES REPRESENTATIVE 07/22/2023 5:54 AM MORTICIAN SUPPLIES SALES REPRESENTATIVE Ayo Boyce MD LAB - BLOOD ORD ERABLES LABORATORY [facility] Lab [address] Lab (1st floor, no room number) [place] [address], [place] [phone] * CBC with platelets and differential (07/22/2023 5:41 AM MORTICIAN SUPPLIES SALES REPRESENTATIVE) [facility] WBC Count 5.5 4.0 - 11.0 10e3/uL 07/22/2023 5:57 AM MORTICIAN SUPPLIES SALES REPRESENTATIVE [facility] RBC Count 5.32 4.40 - 5.90 10e6/uL 07/22/2023 5:57 AM MORTICIAN SUPPLIES SALES REPRESENTATIVE [facility] Hemoglobin 16.9 13.3 - 17.7 g/dL 07/22/2023 5:57 AM MORTICIAN SUPPLIES SALES REPRESENTATIVE [facility] Hematocrit 47.2 40.0 - 53.0 % 07/22/2023 5:57 AM MORTICIAN SUPPLIES SALES REPRESENTATIVE [facility] MCV 89 78 - 100 fL 07/22/2023 5:57 AM MORTICIAN SUPPLIES SALES REPRESENTATIVE [facility] MCH 31.8 26.5 - 33.0 pg 07/22/2023 5:57 AM MORTICIAN SUPPLIES SALES REPRESENTATIVE [facility] MCHC 35.8 31.5 - 36.5 g/dL 07/22/2023 5:57 AM MORTICIAN SUPPLIES SALES REPRESENTATIVE [facility] RDW 13.1 10.0 - 15.0 % 07/22/2023 5:57 AM MORTICIAN SUPPLIES SALES REPRESENTATIVE [facility] Platelet Count 183 150 - 450 10e3/uL 07/22/2023 5:57 AM MORTICIAN SUPPLIES SALES REPRESENTATIVE [facility] % Neutrophils 31 % 07/22/2023 5:57 AM MORTICIAN SUPPLIES SALES REPRESENTATIVE [facility] % Lymphocytes 63 % 07/22/2023 5:57 AM MORTICIAN SUPPLIES SALES REPRESENTATIVE [facility] % Monocytes 5 % 07/22/2023 5:57 AM MORTICIAN SUPPLIES SALES REPRESENTATIVE [facility] % Eosinophils 0 % 07/22/2023 5:57 AM MORTICIAN SUPPLIES SALES REPRESENTATIVE [facility] % Basophils 1 % 07/22/2023 5:57 AM MORTICIAN SUPPLIES SALES REPRESENTATIVE [facility] % Immature Granulocytes 0 % 07/22/2023 5:57 AM MORTICIAN SUPPLIES SALES REPRESENTATIVE [facility] NRBCs per 100 WBC 0 <1 /100 024 5:57 AM MORTICIAN SUPPLIES SALES REPRESENTATIVE [facility] Absolute Neutrophils 1.7 1.6 - 8.3 10e3/uL 07/22/2023 5:57 AM MORTICIAN SUPPLIES SALES REPRESENTATIVE [facility] Absolute Lymphocytes 3.5 0.8 - 5.3 10e3/uL 07/22/2023 5:57 AM MORTICIAN SUPPLIES SALES REPRESENTATIVE [facility] Absolute Monocytes 0.3 0.0 - 1.3 10e3/uL 07/22/2023 5:57 AM MORTICIAN SUPPLIES SALES REPRESENTATIVE [facility] Absolute Eosinophils 0.0 0.0 - 0.7 10e3/uL 07/22/2023 5:57 AM MORTICIAN SUPPLIES SALES REPRESENTATIVE [facility] Absolute Basophils 0.0 0.0 - 0.2 10e3/uL 07/22/2023 5:57 AM MORTICIAN SUPPLIES SALES REPRESENTATIVE [facility] Absolute Immature Granulocytes 0.0 <=0.4 10e3/uL 07/22/2023 5:57 AM MORTICIAN SUPPLIES SALES REPRESENTATIVE [facility] Absolute NRBCs 0.0 10e3/uL 07/22/2023 5:57 AM MORTICIAN SUPPLIES SALES REPRESENTATIVE LABORATORY Blood STRUCTURE OF RIGHT UPPER LIMB / Unknown Venipuncture / Unknown 07/22/2023 5:41 AM MORTICIAN SUPPLIES SALES REPRESENTATIVE 07/22/2023 5:54 AM MORTICIAN SUPPLIES SALES REPRESENTATIVE Ayo Boyce MD LAB - BLOOD ORD ERABLES [facility] LABORATORY [facility] Acute Care Lab [address] Lab (1st floor, no room number) [place] [address], [place] [phone] * (ABNORMAL) Phosphorus (07/22/2023 5:41 AM MORTICIAN SUPPLIES SALES REPRESENTATIVE) [facility] Phosphorus 2.0(L) 2.5 - 4.5 mg/dL 07/22/2023 7:16 AM MORTICIAN SUPPLIES SALES REPRESENTATIVE [facility] Blood STRUCTURE OF RIGHT UPPER LIMB / Unknown Venipuncture / Unknown 07/22/2023 5:41 AM MORTICIAN SUPPLIES SALES REPRESENTATIVE 07/22/2023 5:54 AM MORTICIAN SUPPLIES SALES REPRESENTATIVE Ayo Boyce MD LAB - BLOOD ORD ERABLES [facility] Acute Care Lab [address] Lab (1st floor, no room number) [place] [address], [place] [phone] * Magnesium (07/22/2023 5:41 AM MORTICIAN SUPPLIES SALES REPRESENTATIVE) Magnesium 2.0 1.7 - 2.3 mg/dL 07/22/2023 7:16 AM MORTICIAN SUPPLIES SALES REPRESENTATIVE LABORATORY Blood STRUCTURE OF RIGHT UPPER LIMB / Unknown Venipuncture / Unknown 07/22/2023 5:41 AM MORTICIAN SUPPLIES SALES REPRESENTATIVE 07/22/2023 5:54 AM MORTICIAN SUPPLIES SALES REPRESENTATIVE Ayo Boyce MD LAB - BLOOD ORD ERABLES Performing Organization Address [facility]/ZIP Co de Phone Number [facility] Acute Care Lab [address] Lab (1st floor, no room number) [place] [address], [place] [phone] * (ABNORMAL) Lipase (07/22/2023 5:41 AM MORTICIAN SUPPLIES SALES REPRESENTATIVE) Lipase 89(H) 13 - 60 U/L 07/22/2023 6:17 AM MORTICIAN SUPPLIES SALES REPRESENTATIVE LABORATORY Blood STRUCTURE OF RIGHT UPPER LIMB / Unknown Venipuncture / Unknown 07/22/2023 5:41 AM MORTICIAN SUPPLIES SALES REPRESENTATIVE 07/22/2023 5:54 AM MORTICIAN SUPPLIES SALES REPRESENTATIVE Ayo Boyce MD LAB - BLOOD ORD ERABLES [facility] Care Lab [address] Lab (1st floor, no room number) [place] [address], [place] [phone] * (ABNORMAL) Comprehensive metabolic panel (07/22/2023 5:41 AM MORTICIAN SUPPLIES SALES REPRESENTATIVE) Sodium 138 135 - 145 mmol/L 07/22/2023 6:17 AM [facility] Comment:Reference intervals for this test were updated on 03/02/2023 to more accurately reflect our healthy population. There may be differences in the flagging of prior results with similar values performed with this method. Interpretation of those prior results can be made in the context of the updated reference intervals. Potassium 3.7 3.4 - 5.3 mmol/L 07/22/2023 6:17 AM [facility] Carbon Dioxide (CO2) 25 22 - 29 mmol/L 07/22/2023 6:17 AM [facility] Anion Gap 17(H) 7 - 15 mmol/L 07/22/2023 6:17 AM [facility] Urea Nitrogen 11.8 6.0 - 20.0 mg/dL 07/22/2023 6:17 AM [facility] Creatinine 0.82 0.67 - 1.17 mg/dL 07/22/2023 6:17 AM [facility] GFR Estimate >90 >60 mL/min/1. 73m2 07/22/2023 6:17 AM [facility] Calcium 7.9(L) 8.6 - 10.0 mg/dL 07/22/2023 6:17 AM [facility] Chloride 96(L) 98 - 107 mmol/L 07/22/2023 6:17 AM [facility] Glucose 153(H) 70 - 99 mg/dL 07/22/2023 6:17 AM [facility] Alkaline Phosphatase 71 40 - 150 U/L 07/22/2023 6:17 AM [facility] Comment:Reference intervals for this test were updated on 04/20/2023 to more accurately reflect our healthy population. There may be differences in the flagging of prior results with similar values performed with this method. Interpretation of those prior results can be made in the context of the updated reference intervals. AST 131(H) 0 - 45 U/L 07/22/2023 6:17 AM [facility] Comment:Reference intervals for this test were updated on 11/16/2022 to more accurately reflect our healthy population. There may be differences in the flagging of prior results with similar values performed with this method. Interpretation of those prior results can be made in the context of the updated reference intervals. ALT 94(H) 0 - 70 U/L 07/22/2023 6:17 AM MORTICIAN SUPPLIES SALES REPRESENTATIVE [facility] Comment:Reference intervals for this test were updated on 11/16/2022 to more accurately reflect our healthy population. There may be differences in the flagging of prior results with similar values performed with this method. Interpretation of those prior results can be made in the context of the updated reference intervals. Protein Total 6.8 6.4 - 8.3 g/dL 07/22/2023 6:17 AM MORTICIAN SUPPLIES SALES REPRESENTATIVE [facility] Albumin 4.2 3.5 - 5.2 g/dL 07/22/2023 6:17 AM MORTICIAN SUPPLIES SALES REPRESENTATIVE [facility] Bilirubin Total 0.9 <=1.2 mg/dL 07/22/2023 6:17 AM MORTICIAN SUPPLIES SALES REPRESENTATIVE [facility] Blood STRUCTURE OF RIGHT UPPER LIMB / Unknown Venipuncture / Unknown 07/22/2023 5:41 AM MORTICIAN SUPPLIES SALES REPRESENTATIVE 07/22/2023 5:54 AM MORTICIAN SUPPLIES SALES REPRESENTATIVE Ayo Boyce MD LAB - BLOOD ORD ERABLES [facility] Care Lab [address] Lab (1st floor, no room number) [place] [address], [place] [phone] * (ABNORMAL) Alcohol level blood (07/22/2023 5:41 AM MORTICIAN SUPPLIES SALES REPRESENTATIVE) Alcohol ethyl 0.35(HH) <=0.01 g/dL 07/22/2023 6:26 AM MORTICIAN SUPPLIES SALES REPRESENTATIVE [facility] Blood STRUCTURE OF RIGHT UPPER LIMB / Unknown Venipuncture / Unknown 07/22/2023 5:41 AM MORTICIAN SUPPLIES SALES REPRESENTATIVE 07/22/2023 5:54 AM MORTICIAN SUPPLIES SALES REPRESENTATIVE Ayo Boyce MD LAB - BLOOD ORD ERABLES [facility] Care Lab [address] Lab (1st floor, no room number) [place] [address], [place] [phone] from Last 3 Months Care Teams Conversion Developer Relationship Specialty Start Date End Date Home - [place] [id number] [facility] [place] [address] PCP - General 07/22/23
--- OUTSIDE RECORDS SUMMARY | 2023-09-16 17:44 | XMS_ITS | Encounter Summary ---
Author Name Unknown Organization [facility] Address [address] [place] [address]. [place] [address] Care Team Providers Care Cylinder Block Hole Reliner Name Role Phone Home - [place], [place] [facility] Primary C are Provider Reason for Visit * Reason Comments Withdrawal Encounter Details Date Type Department Care Team (Late st Contact Info) Description 07/22/2023 5:36 AM TRANSPORTATION WORKER - 07/22/2023 9:50 AM TRANSPORTATION WORKER Emergency [facility] Emergency Dept [address] [place] [address] Ayo Boyce MD [facility] [address] [place], [place] [id number] Alcohol use disorder Discharge Disposition: Home or Self Care Social [...] Comments Blood Pressure 156/96 07/22/2023 9:49 AM TRANSPORTATION WORKER Pulse 102 07/22/2023 9:49 AM TRANSPORTATION WORKER Temperature 36.4 ??C (97.5 ??F) 07/22/2023 5:17 AM CS T Respiratory Rate 20 07/22/2023 9:49 AM TRANSPORTATION WORKER Oxygen Saturation 98% 07/22/2023 9:49 AM TRANSPORTATION WORKER Inhaled Oxygen Concentration - - Weight 95.3 kg (210 lb) 07/22/2023 5:17 AM TRANSPORTATION WORKER Height 182.9 cm (6') 07/22/2023 5:17 AM TRANSPORTATION WORKER Body Mass Index 28.48 07/22/2023 5:17 AM TRANSPORTATION WORKER documented in this encounter Discharge Instructions * Attachments The following attachments cannot be sent through Care Everywhere. * Alcohol Detoxification and Withdrawal (Greenlandic) documented in this encounter Medications at Time of Discharge Medication Sig Dispensed Refills Start Date End Date chlordiazePOXIDE (LIBRIUM) 25 MG capsule Take 1-2 capsules (25-50 mg) by mouth 4 times daily as needed for anxiety or withdrawal 24 capsule 07/22/2023 gabapentin (NEURONTIN) 300 MG capsule Take 1 capsule (300 mg) by mouth 3 times daily for 3 days 9 capsule 07/22/2023 ondansetron (ZOFRAN ODT) 4 MG ODT tab Take 1 tablet (4 mg) by mouth every 8 hours as needed for nausea 10 tablet 07/22/2023 07/25/2023 documented as of this encounter ED Notes * Flavia Fontento RN - 07/22/2023 9:28 AM CST Pit Tanner got off phone with Detox placement, pt updated on need for UA and detox bed availability. Ptstates at this time he does not want detox placement. Pit Tanner and Pt spoke about options, pt requests to be discharge with medications which him and MD discussed prior. MD updated on request. SPORTATION WORKER * Flavia Fontenot RN - 07/22/2023 8:00 AM CST Pt opened the door and then closed door, staff entered room. Pit Tanner spoke with pt, states he a is agitated and feels worse then when he first came in. Requesting to leave, mother in room and requesting for an update from MD. MD sent message, at this time MD busy with another pt. Family and pt updated on MD currently being busy. Pt educated on current options, pt requesting medications to help with current symptoms. CIWA completed and medications given based on value. Family and pt updated that MD will be with them as so as he is able. SPORTATION WORKER * Varsha Durbin RN - 07/22/2023 5:17 AM CST Here for alcohol withdrawal, states currently feeling anxious, nauseous and out of it. Has hx of Dts and seizures with withdrawal. Last drink approx 6 hours ago, states drinks approx 1 L of vodka daily. Potentially interested in treatment. Current CIWA 7 SPORTATION WORKER * Ayo Boyce MD - 07/22/2023 5:14 AM CST History Chief Complaint: Withdrawal HPI Balaji Mckeon is a 33 year old male who presents with concerns for alcohol withdrawal. He has been drinking heavily for at least the last 1 week approximately 1 L of vodka per day. Last drink reportedly 6 hours ago. Primary complaint is just feeling out of it, nausea no hematemesis melena hematoch ezia. No fever sore throat or cough or chest pain. No recent falls or trauma. Has struggled with alcohol use disorder and recent binge drinking over the last few months. Up until this summer had beensober for 6 years. Has gone through inpatient treatment multiple times. Denies other substance use.No active suicidal or homicidal ideation. Describes a little regular p.o. intake over the last several days. States he has a history of delirium tremens and alcohol withdrawal seizures. Independent Historian: None - Patient Only Review of External Notes: I reviewed [facility] notes in care everywhere from hospitalization March 23 March 26 for alcohol withdrawal and suicidal ideation. Medications: Adderall Melatonin Thiamine Trazodone Past Medical History: ADHD Alcohol withdrawal syndrome Physical Exam Patient Vitals for the past 24 hrs: BP Temp Temp src Pulse Resp SpO2 Height Weight 07/22/23 0949 (!) 156/96 -- -- 102 20 98 % -- -- 07/22/23 0518 (!) 177/149 -- -- -- -- -- -- -- 07/22/23516 -- 97.5 ??F (36.4 ??C) Temporal 111 18 97 % 1.829 m (6') 95.3 kg (210 lb) Physical Exam HENT: mmm, no rhinorrhea, atraumatic Eyes: periorbital tissues and sclera normal Neck: supple, no abnormal swelling Lungs: CTAB, no resp distress CV: Tachycardic, no m/r/g, ppi Abd: soft, nontender, nondistended, no rebound/masses/guarding/hsm Ext: no peripheral edema Skin: warm, dry, well perfused, no rashes/bruising/lesions on exposed skin Neuro: alert, MAEE, no gross motor or sensory deficits, gait stable Psych: Normal mood, normal affect, no active SI or HI Emergency Department Course Laboratory: Labs Ordered and Resulted from Time of ED Arrival to Time of ED Departure COMPREHENSIVE METABOLIC PANEL - Abnormal Result Value Sodium 138 Potassium 3.7 Carbon Dioxide (CO2) 25 Anion Gap 17 (*) Urea Nitrogen 11.8 Creatinine 0.82 GFR Estimate >90 Calcium 7.9 (*) Chloride 96 (*) Glucose 153 (*) Alkaline Phosphatase 71 AST 131 (*) ALT 94 (*) Protein Total 6.8 Albumin 4.2 Bilirubin Total 0.9 LIPASE - Abnormal Lipase 89 (*) ETHYL ALCOHOL LEVEL - Abnormal Alcohol ethyl 0.35 (*) PHOSPHORUS - Abnormal Phosphorus 2.0 (*) MAGNESIUM - Normal Magnesium 2.0 CBC WITH PLATELETS AND DIFFERENTIAL WBC Count 5.5 RBC Count 5.32 Hemoglobin 16.9 Hematocrit 47.2 MCV 89 MCH 31.8 MCHC 35.8 RDW 13.1 Platelet Count 183 % Neutrophils 31 % Lymphocytes 63 % Monocytes 5 % Eosinophils 0 % Basophils 1 % Immature Granulocytes 0 NRBCs per 100 WBC 0 Absolute Neutrophils 1.7 Absolute Lymphocytes 3.5 Absolute Monocytes 0.3 Absolute Eosinophils 0.0 Absolute Basophils 0.0 Absolute Immature Granulocytes 0.0 Absolute NRBCs 0.0 Emergency Department Course & Assessments: Interventions: Medications ondansetron (ZOFRAN ODT) ODT tab 4 mg (4 mg Oral $Given 07/22/23 0522) sodium chloride 0.9% BOLUS 1,000 mL (0 mLs Intravenous Stopped 07/22/23 0657) ondansetron (ZOFRAN) injection 4 mg (4 mg Intravenous $Given 07/22/23 0608) diazepam (VALIUM) injection 5 mg (5 mg Intravenous $Given 07/22/23 0620) gabapentin (NEURONTIN) capsule 900 mg (900 mg Oral $Given 07/22/23826) folic acid (FOLVITE) tablet 1 mg (1 mg Oral $Given 07/22/23826) thiamine (B-1) tablet 100 mg (100 mg Oral $Given 07/22/23 0888) metoclopramide (REGLAN) injection 5 mg (5 mg Intravenous $Given 07/22/23 0731) Assessments: 602 I entered the patient's room and obtained history. 901 I rechecked the patient and explained findings. 925 I rechecked the patient. He does not want to go to detox. I believe he is safe for discharge at this time. Independent Interpretation (X-rays, CTs, rhythm strip): None Consultations/Discussion of Management or Tests: None Social Determinants of Health affecting care: Substance abuse Disposition: The patient was discharged. Impression & Plan [facility] Diagnoses: None Medical Decision Makin-year-old male with alcohol use disorder here with concerns of feeling ill and potentially alcohol withdrawal. Alcohol level is 0.3 on a blood test here. Mild abnormalities of h liver function test. No concerning abdominal exam findings. Did well with intravenous fluids and the above medications.We discussed next steps including detox versus home with medicines for withdrawal. We had risk-benefit conversation given the likelihood of recurrent alcohol use with home relative to being in a detox setting. He has no severe withdrawal symptoms at the moment. He has the capacity to make his own medical decision making as he is clinically sober after period of observation here in the emergency de partment. We offered detox he would like to go home his mother is going to bring him home. Will do symptom control to the degree that we can and recommend he return with any new or worsening symptoms. No active suicidal or homicidal ideation Diagnosis: ICD-10-CM 1. Alcohol use disorder F10.90 Discharge Medications: Discharge Medication List as of 07/22/2023 9:44 AM START taking these medications Details chlordiazePOXIDE (LIBRIUM) 25 MG capsule Take 1-2 capsules (25-50 mg) by mouth 4 times daily as needed for anxiety or withdrawal, Disp-24 capsule, R-0, E-Prescribe gabapentin (NEURONTIN) 300 MG capsule Take 1 capsule (300 mg) by mouth 3 times daily for 3 days, Disp-9 capsule, R-0, E-Prescribe ondansetron (ZOFRAN ODT) 4 MG ODT tab Take 1 tablet (4 mg) by mouth every 8 hours as needed for nausea, Disp-10 tablet, R-0, E-Prescribe Scribe Disclosure: [employer]ala [employer], am serving as a scribe at 6:04 AM on 07/22/2023 to document services personally performed by Ayo Boyce MD based on my observations and the provider's statements to me. 07/22/2023 Ayo Boyce MD Walker, Jerome Richard, MD 07/22/23 1332 SPORTATION WORKER documented in this encounter Plan of Treatment Not on file documented as of this encounter Procedures Procedure Name Priority Date/Time Associated Diagnosis Comments EXTRA TUBE STAT 07/22/2023 5:41 AM TRANSPORTATION WORKER EXTRA RED TOP TUBE STAT 07/22/2023 5: 41 AM TRANSPORTATION WORKER EXTRA BLUE TOP TUBE STAT 07/22/2023 5 :41 AM TRANSPORTATION WORKER CBC WITH PLATELETS AND DIFFERENTIAL STAT 07/22/2023 5:41 AM TRANSPORTATION WORKER CBC WITH PLATELETS & DIFFERENTIAL STAT 07/22/2023 5:41 AM TRANSPORTATION WORKER PHOSPHORUS STAT 07/22/2023 5:41 AM TRANSPORTATION WORKER MAGNESIUM STAT 07/22/2023 5:41 AM TRANSPORTATION WORKER LIPASE STAT 07/22/2023 5:41 AM TRANSPORTATION WORKER COMPREHENSIVE METABOLIC PANEL STAT 07/22/2023 5:41 AM TRANSPORTATION WORKER ETHYL ALCOHOL LEVEL STAT 07/22/2023 5 :41 AM TRANSPORTATION WORKER documented in this encounter Results * (ABNORMAL) Phosphorus (07/22/2023 5:41 AM TRANSPORTATION WORKER) Phosphorus 2.0(L) 2.5 - 4.5 mg/dL 07/22/2023 7:16 AM TRANSPORTATION WORKER [facility] Blood STRUCTURE OF RIGHT UPPER LIMB / Unknown Venipuncture / Unknown 07/22/2023 5:41 AM TRANSPORTATION WORKER 07/22/2023 5:54 AM TRANSPORTATION WORKER Ayo Boyce MD LAB - BLOOD ORD ERABLES [facility] [address] Lab (1st floor, no room number) [place] [address], [place] [phone] * Magnesium (07/22/2023 5:41 AM TRANSPORTATION WORKER) Magnesium 2.0 1.7 - 2.3 mg/dL 07/22/2023 7:16 AM TRANSPORTATION WORKER [facility] Blood STRUCTURE OF RIGHT UPPER LIMB / Unknown Venipuncture / Unknown 07/22/2023 5:41 AM TRANSPORTATION WORKER 07/22/2023 5:54 AM TRANSPORTATION WORKER Ayo Boyce MD LAB - BLOOD ORD ERABLES Performing Organization Address City/[facility]/ZIP Co de Phone Number [facility] Lab [address] Lab (1st floor, no room number) [place] [address], [place] [phone] * Extra Red Top Tube (07/22/2023 5:41 AM TRANSPORTATION WORKER) Hold Specimen [facility] 07/22/2023 7:04 AM TRANSPORTATION WORKER [facility] Blood STRUCTURE OF RIGHT UPPER LIMB / Unknown Venipuncture / Unknown 07/22/2023 5:41 AM TRANSPORTATION WORKER 07/22/2023 5:54 AM TRANSPORTATION WORKER Ayo Boyce MD LAB - BLOOD ORD ERABLES [facility] [address] Lab (1st floor, no room number) [place] [address], [place] [phone] * Extra Blue Top Tube (07/22/2023 5:41 AM TRANSPORTATION WORKER) Hold Specimen [facility] 07/22/2023 7:04 AM TRANSPORTATION WORKER [facility] Blood STRUCTURE OF RIGHT UPPER LIMB / Unknown Venipuncture / Unknown 07/22/2023 5:41 AM TRANSPORTATION WORKER 07/22/2023 5:54 AM TRANSPORTATION WORKER Ayo Boyce MD LAB - BLOOD ORD ERABLES [facility] Lab [address] Lab (1st floor, no room number) [place] [address], [facility] [phone] * CBC with platelets and differential (07/22/2023 5:41 AM TRANSPORTATION WORKER) WBC Count 5.5 4.0 - 11.0 10e3/uL 07/22/2023 5:57 AM TRANSPORTATION WORKER [facility] RBC Count 5.32 4.40 - 5.90 10e6/uL 07/22/2023 5:57 AM TRANSPORTATION WORKER [facility] Hemoglobin 16.9 13.3 - 17.7 g/dL 07/22/2023 5:57 AM TRANSPORTATION WORKER [facility] Hematocrit 47.2 40.0 - 53.0 % 07/22/2023 5:57 AM TRANSPORTATION WORKER [facility] MCV 89 78 - 100 fL 07/22/2023 5:57 AM TRANSPORTATION WORKER [facility] MCH 31.8 26.5 - 33.0 pg 07/22/2023 5:57 AM TRANSPORTATION WORKER [facility] MCHC 35.8 31.5 - 36.5 g/dL 07/22/2023 5:57 AM TRANSPORTATION WORKER [facility] RDW 13.1 10.0 - 15.0 % 07/22/2023 5:57 AM TRANSPORTATION WORKER [facility] Platelet Count 183 150 - 450 10e3/uL 07/22/2023 5:57 AM TRANSPORTATION WORKER [facility] % Neutrophils 31 % 07/22/2023 5:57 AM TRANSPORTATION WORKER [facility] % Lymphocytes 63 % 07/22/2023 5:57 AM TRANSPORTATION WORKER [facility] % Monocytes 5 % 07/22/2023 5:57 AM TRANSPORTATION WORKER [facility] % Eosinophils 0 % 07/22/2023 5:57 AM TRANSPORTATION WORKER [facility] % Basophils 1 % 07/22/2023 5:57 AM TRANSPORTATION WORKER [facility] % Immature Granulocytes 0 % 07/22/2023 5:57 AM TRANSPORTATION WORKER [facility] NRBCs per 100 WBC 0 <1 /100 024 5:57 AM TRANSPORTATION WORKER [facility] Absolute Neutrophils 1.7 1.6 - 8.3 10e3/uL 07/22/2023 5:57 AM TRANSPORTATION WORKER [facility] Absolute Lymphocytes 3.5 0.8 - 5.3 10e3/uL 07/22/2023 5:57 AM TRANSPORTATION WORKER [facility] Absolute Monocytes 0.3 0.0 - 1.3 10e3/uL 07/22/2023 5:57 AM TRANSPORTATION WORKER [facility] Absolute Eosinophils 0.0 0.0 - 0.7 10e3/uL 07/22/2023 5:57 AM TRANSPORTATION WORKER [facility] Absolute Basophils 0.0 0.0 - 0.2 10e3/uL 07/22/2023 5:57 AM TRANSPORTATION WORKER [facility] Absolute Immature Granulocytes 0.0 <=0.4 10e3/uL 07/22/2023 5:57 AM TRANSPORTATION WORKER [facility] Absolute NRBCs 0.0 10e3/uL 07/22/2023 5:57 AM TRANSPORTATION WORKER [facility] Blood STRUCTURE OF RIGHT UPPER LIMB / Unknown Venipuncture / Unknown 07/22/2023 5:41 AM TRANSPORTATION WORKER 07/22/2023 5:54 AM TRANSPORTATION WORKER Ayo Boyce MD LAB - BLOOD ORD ERABLES [facility] [address] Lab (1st floor, no room number) [place] [address], [facility] [phone] * (ABNORMAL) Alcohol level blood (07/22/2023 5:41 AM TRANSPORTATION WORKER) Alcohol ethyl 0.35(HH) <=0.01 g/dL 07/22/2023 6:26 AM TRANSPORTATION WORKER [facility] Blood STRUCTURE OF RIGHT UPPER LIMB / Unknown Venipuncture / Unknown 07/22/2023 5:41 AM TRANSPORTATION WORKER 07/22/2023 5:54 AM TRANSPORTATION WORKER Ayo Boyce MD LAB - BLOOD ORD ERABLES [facility] [address] Lab (1st floor, no room number) [place] [address] [phone] * (ABNORMAL) Lipase (07/22/2023 5:41 AM TRANSPORTATION WORKER) Lipase 89(H) 13 - 60 U/L 07/22/2023 6:17 AM [facility] Blood STRUCTURE OF RIGHT UPPER LIMB / Unknown Venipuncture / Unknown 07/22/2023 5:41 AM TRANSPORTATION WORKER 07/22/2023 5:54 AM TRANSPORTATION WORKER Ayo Boyce MD LAB - BLOOD ORD ERABLES LABORATORY [facility] Lab [address] [facility] Lab (1st floor, no room number) [place] [address] [phone] * (ABNORMAL) Comprehensive metabolic panel (07/22/2023 5:41 AM TRANSPORTATION WORKER) Sodium 138 135 - 145 mmol/L 07/22/2023 6:17 AM [facility] Comment:Reference intervals for this test were updated on 03/02/2023 to more accurately reflect our healthy population. There may be differences in the flagging of prior results with similar values performed with this method. Interpretation of those prior results can be made in the context of the updated reference intervals. Potassium 3.7 3.4 - 5.3 mmol/L 07/22/2023 6:17 AM [facility] Carbon Dioxide (CO2) 25 22 - 29 mmol/L 07/22/2023 6:17 AM [facility] Anion Gap 17(H) 7 - 15 mmol/L 07/22/2023 6:17 AM [facility] Urea Nitrogen 11.8 6.0 - 20.0 mg/dL 07/22/2023 6:17 AM [facility] Creatinine 0.82 0.67 - 1.17 mg/dL 07/22/2023 6:17 AM [facility] GFR Estimate >90 >60 mL/min/1. 73m2 07/22/2023 6:17 AM [facility] Calcium 7.9(L) 8.6 - 10.0 mg/dL 07/22/2023 6:17 AM [facility] Chloride 96(L) 98 - 107 mmol/L 07/22/2023 6:17 AM TRANSPORTATION WORKER [facility] Glucose 153(H) 70 - 99 mg/dL 07/22/2023 6:17 AM TRANSPORTATION WORKER [facility] Alkaline Phosphatase 71 40 - 150 U/L 07/22/2023 6:17 AM TRANSPORTATION WORKER [facility] Comment:Reference intervals for this test were updated on 04/20/2023 to more accurately reflect our healthy population. There may be differences in the flagging of prior results with similar values performed with this method. Interpretation of those prior results can be made in the context of the updated reference intervals. AST 131(H) 0 - 45 U/L 07/22/2023 6:17 AM TRANSPORTATION WORKER [facility] Comment:Reference intervals for this test were updated on 11/16/2022 to more accurately reflect our healthy population. There may be differences in the flagging of prior results with similar values performed with this method. Interpretation of those prior results can be made in the context of the updated reference intervals. ALT 94(H) 0 - 70 U/L 07/22/2023 6:17 AM TRANSPORTATION WORKER [facility] Comment:Reference intervals for this test were updated on 11/16/2022 to more accurately reflect our healthy population. There may be differences in the flagging of prior results with similar values performed with this method. Interpretation of those prior results can be made in the context of the updated reference intervals. Protein Total 6.8 6.4 - 8.3 g/dL 07/22/2023 6:17 AM TRANSPORTATION WORKER [facility] Albumin 4.2 3.5 - 5.2 g/dL 07/22/2023 6:17 AM TRANSPORTATION WORKER LABORATORY Bilirubin Total 0.9 <=1.2 mg/dL 07/22/2023 6:17 AM [facility] Blood STRUCTURE OF RIGHT UPPER LIMB / Unknown Venipuncture / Unknown 07/22/2023 5:41 AM TRANSPORTATION WORKER 07/22/2023 5:54 AM TRANSPORTATION WORKER Ayo Boyce MD LAB - BLOOD ORD ERABLES LABORATORY [facility] Lab [address] [facility] Lab (1st floor, no room number) [place] [address], [facility] [phone] documented in this encounter Visit Diagnoses Diagnosis Alcohol use disorder documented in this encounter Administered Medications Inactive Administered Medications - up to 3 most recent administrations Medication Order MAR Action Action Date Dose Rate Site diazepam (VALIUM) injection 5 mg 5 mg, Intravenous, Administer over 1-4 Minutes, ONCE, On Maci 07/22/23 at 0620, For 1 dose, Vesicant. This drug may cause significant respiratory depression. Monitor respiratory status and vital signs carefully for 1 hour after each dose. $Given 07/22/2023 6:20 AM TRANSPORTATION WORKER 5 mg diazepam (VALIUM) injection 5-10 mg 5-10 mg, Intravenous, Administer over 1-4 Minutes, EVERY 30 MIN PRN, other, per CIWA-Ar score, Starting on Maci 07/22/23 at 0615, Oral dosing is the preferred route of administration. Dose according to CIWA-Ar Score: For CIWA-Ar Score LESS THAN OR EQUAL TO 7: ~ NO diazepam (VALIUM) is to be given and ~ repeat CIWA-Ar scale in 4 hours and PRN if symptomatic For CIWA-Ar Score 8-12: ~ give diazepam (VALIUM) 10 mg PO or 5 mg IV and ~ repeat CIWA-Ar scale in 2 hours For CIWA-Ar Score 13-15: ~ give diazepam (VALIUM)10 mg PO or 5 mg IV and ~ repeat CIWA-Ar scale in 30 minutes For CIWA-Ar Score GREATER THAN OR EQUAL TO 16: ~ give diazepam (VALIUM) 10mg PO or 10 mg IV and ~ repeat CIWA-Ar scale in 30 minutes Doses should be withheld for nystagmus, sedation, ataxia, dysarthria or respiratory rate less than 12. If dose is being held more than once, provider must be notified. Vesicant. This drug may cause significant respiratory depression. Monitor respiratory status and vital signs carefully for 1 hour after each dose. $Given 07/22/2023 8:12 AM TRANSPORTATION WORKER 5 mg diazepam (VALIUM) tablet 10 mg 10 mg, Oral, EVERY 30 MIN PRN, other, per CIWA-Ar score, Starting on [facility] 07/22/23 at 0615, Oral dosing is the preferred route of administration. Dose according to CIWA-Ar Score: For CIWA-Ar Score LESS THAN OR EQUAL TO 7: ~ NO diazepam (VALIUM) is to be given and ~ repeat CIWA-Ar scale in 4 hours and PRN if symptomatic For CIWA-Ar Score 8-12: ~ give diazepam (VALIUM) 10 mg PO or 5 mg IV and ~ repeat CIWA-Ar scale in 2 hours For CIWA-Ar Score 13-15: ~ give diazepam (VALIUM)10 mg PO or 5 mg IV and ~ repeat CIWA-Ar scale in 30 minutes For CIWA-Ar Score GREATER THAN OR EQUAL TO 16: ~ give diazepam (VALIUM) 10mg PO or 10 mg IV and ~ repeat CIWA-Ar scale in 30 minutes Doses should be withheld for nystagmus, sedation, ataxia, dysarthria or respiratory rate less than 12. If dose is being held more than once, provider must be notified. flumazenil (ROMAZICON) injection 0.2 mg 0.2 mg, Intravenous, EVERY 1 MIN PRN, benzodiazepine reversal, Administer over 1 Minutes, Starting on [facility] 07/22/23 at 0615, Give if patient unarousable, RR less than 8, or appears to be approaching respiratory arrest. Give over 15 secs. If inadequate response after 45 seconds, may repeat q1min (MAX total dose: 1 mg). Continue monitoring for a minimum of 2 hours. Notify MD if administered. Irritant. Use with caution in patients on benzodiazepine therapy. folic acid (FOLVITE) tablet 1 mg 1 mg, Oral, ONCE, On [facility] 07/22/23 at 0620, For 1 dose $Given 07/22/2023 8:27 AM TRANSPORTATION WORKER 1 mg gabapentin (NEURONTIN) capsule 900 mg 900 mg, Oral, ONCE, On [facility] 07/22/23 at 0620, For 1 dose $Given 07/22/2023 8:27 AM TRANSPORTATION WORKER 900 mg haloperidol lactate (HALDOL) injection 2.5-5 mg 2.5-5 mg, Intravenous, EVERY 6 HOURS PRN, other, hallucinations, IF unable to take oral, Administer over 1 Minutes, Starting on [facility] 07/22/23 at 0615, For CIWA Visual Disturbance Score 0-3, give NO Haloperidol For Visual Disturbance Score 4-5, give Haloperidol 2.5 mg IV and repeat scale in 1 hour For Visual Disturbance Score 6-7, give Haloperidol 5 mg IV and repeat scale in 1 hour MAX: 40 mg in 24 hours metoclopramide (REGLAN) injection 5 mg 5 mg, Intravenous, Administer over 2 Minutes, ONCE, On [facility] 07/22/23 at 0725, For 1 dose, Avoid use if patient has full bowel obstruction or perforation. Irritant. $Given 07/22/2023 7:31 AM TRANSPORTATION WORKER 5 mg OLANZapine zydis (zyPREXA) ODT tab 5-10 mg 5-10 mg, Oral, EVERY 6 HOURS PRN, other, hallucinations, IF able to take oral, Starting on [facility] 07/22/23 at 0615, For [facility] Visual Disturbance Score 0-3, Give NO OLANZapine zydis (ZYPREXA) For Visual Disturbance Score 4-5, give OLANZapine zydis (ZYPREXA) 5 mg ODT and repeat scale in 1 hour For Visual Disturbance Score 6-7, give OLANZapine zydis (ZYPREXA) 10 mg ODT and repeat scale in 1 hour With dry hands, peel back foil backing and gently remove tablet. Do not push oral disintegrating tablet through foil backing. Administer immediately on tongue and oral disintegrating tablet dissolves in seconds, then swallow with saliva. Liquid not required. ondansetron (ZOFRAN ODT) ODT tab 4 mg 4 mg, Oral, ONCE, On [facility] 07/22/23 at 0525, For 1 dose, With dry hands, peel back foil backing and gently remove tablet. Do not push oral disintegrating tablet through foil backing. Administer immediately on tongue and oral disintegrating tablet dissolves in seconds, then swallow with saliva. Liquid not required. $Given 07/22/2023 5:22 AM TRANSPORTATION WORKER 4 mg ondansetron (ZOFRAN) injection 4 mg 4 mg, Intravenous, ONCE, Administer over 2-5 Minutes, On Maci 07/22/23 at 0610, For 1 dose, Irritant. $Given 07/22/2023 6:08 AM TRANSPORTATION WORKER 4 mg sodium chloride 0.9% BOLUS 1,000 mL Intravenous, 1,000 mL, ONCE, at 1,000 mL/hr, Administer over 1 Hours, On Maci 07/22/23 at 0545, For 1 dose $New Bag 07/22/2023 5:44 AM TRANSPORTATION WORKER 1,000 mLs 1000 mL/hr thiamine (B-1) tablet 100 mg 100 mg, Oral, ONCE, On Maci 07/22/23 at 0620, For 1 dose $Given 07/22/2023 8:27 AM TRANSPORTATION WORKER 100 mg documented in this encounter Active and Recently Administered Medications Times are shown in TRANSPORTATION WORKER. Scheduled Medication Order 07/20/2023 07/21/2023 07/22/2023 diazepam (VALIUM) injection 5 mg (COMPLETED) 5 mg, Intravenous, Administer over 1-4 Minutes, ONCE, On Maci 07/22/23 at 0620, For 1 dose, Vesicant. This drug may cause significant respiratory depression. Monitor respiratory status and vital signs carefully for 1 hour after each dose. 0620 ($Given - Provi jenny: Cathie Ramirez RN) folic acid (FOLVITE) tablet 1 mg (COMPLETED) 1 mg, Oral, ONCE, On Maci 07/22/23 at 0620, For 1 dose 826 ($Given - Provi jenny: Flavia Fontenot RN) gabapentin (NEURONTIN) capsule 900 mg (COMPLETED) 900 mg, Oral, ONCE, On Maci 07/22/23 at 0620, For 1 dose 826 ($Given - Provi jenny: Flavia Fontenot RN) metoclopramide (REGLAN) injection 5 mg (COMPLETED) 5 mg, Intravenous, Administer over 2 Minutes, ONCE, On Maci 07/22/23 at 0725, For 1 dose, Avoid use if patient has full bowel obstruction or perforation. Irritant. 0731 ($Given - Provi jenny: Flavia Fontenot RN) ondansetron (ZOFRAN ODT) ODT tab 4 mg (COMPLETED) 4 mg, Oral, ONCE, On Maci 07/22/23 at 0525, For 1 dose, With dry hands, peel back foil backing and gently remove tablet. Do not push oral disintegrating tablet through foil backing. Administer immediately on tongue and oral disintegrating tablet dissolves in seconds, then swallow with saliva. Liquid not required. 05 ($Given - Provi jenny: Varsha Durbin RN) ondansetron (ZOFRAN) injection 4 mg (COMPLETED) 4 mg, Intravenous, ONCE, Administer over 2-5 Minutes, On Maci 07/22/23 at 0610, For 1 dose, Irritant. 0608 ($Given - Provi jenny: Cathie Ramirez RN) sodium chloride 0.9% BOLUS 1,000 mL (COMPLETED) Intravenous, 1,000 mL, ONCE, at 1,000 mL/hr, Administer over 1 Hours, On Maci 07/22/23 at 0545, For 1 dose 0544 ($New Bag - Pro vider: Cathie Ramirez RN)0657 (Stopped - Provider: Cathie Ramirez RN) thiamine (B-1) tablet 100 mg (COMPLETED) 100 mg, Oral, ONCE, On Maci 07/22/23 at 0620, For 1 dose 0827 ($Given - Provi jenny: Flavia Fontenot RN) PRN Medication Order 07/20/2023 07/21/2023 07/22/2023 diazepam (VALIUM) injection 5-10 mg(Linked Group 1) 5-10 mg, Intravenous, Administer over 1-4 Minutes, EVERY 30 MIN PRN, other, per CIWA-Ar score, Starting on Maci 07/22/23 at 0615, Oral dosing is the preferred route of administration. Dose according to CIWA-Ar Score: For CIWA-Ar Score LESS THAN OR EQUAL TO 7: ~ NO diazepam (VALIUM) is to be given and ~ repeat CIWA-Ar scale in 4 hours and PRN if symptomatic For CIWA-Ar Score 8-12: ~ give diazepam (VALIUM) 10 mg PO or 5 mg IV and ~ repeat CIWA-Ar scale in 2 hours For CIWA-Ar Score 13-15: ~ give diazepam (VALIUM)10 mg PO or 5 mg IV and ~ repeat CIWA-Ar scale in 30 minutes For CIWA-Ar Score GREATER THAN OR EQUAL TO 16: ~ give diazepam (VALIUM) 10mg PO or 10 mg IV and ~ repeat CIWA-Ar scale in 30 minutes Doses should be withheld for nystagmus, sedation, ataxia, dysarthria or respiratory rate less than 12. If dose is being held more than once, provider must be notified. Vesicant. This drug may cause significant respiratory depression. Monitor respiratory status and vital signs carefully for 1 hour after each dose. 0812 ($Given - Provi jenny: Flavia Fontenot RN) diazepam (VALIUM) tablet 10 mg(Linked Group 1) 10 mg, Oral, EVERY 30 MIN PRN, other, per CIWA-Ar score, Starting on Maci 07/22/23 at 0615, Oral dosing is the preferred route of administration. Dose according to CIWA-Ar Score: For CIWA-Ar Score LESS THAN OR EQUAL TO 7: ~ NO diazepam (VALIUM) is to be given and ~ repeat CIWA-Ar scale in 4 hours and PRN if symptomatic For CIWA-Ar Score 8-12: ~ give diazepam (VALIUM) 10 mg PO or 5 mg IV and ~ repeat CIWA-Ar scale in 2 hours For CIWA-Ar Score 13-15: ~ give diazepam (VALIUM)10 mg PO or 5 mg IV and ~ repeat CIWA-Ar scale in 30 minutes For CIWA-Ar Score GREATER THAN OR EQUAL TO 16: ~ give diazepam (VALIUM) 10mg PO or 10 mg IV and ~ repeat CIWA-Ar scale in 30 minutes Doses should be withheld for nystagmus, sedation, ataxia, dysarthria or respiratory rate less than 12. If dose is being held more than once, provider must be notified. 0812 (See Alternativ e - Provider: Flavia Fontenot RN) flumazenil (ROMAZICON) injection 0.2 mg 0.2 mg, Intravenous, EVERY 1 MIN PRN, benzodiazepine reversal, Administer over 1 Minutes, Starting on Maci 07/22/23 at 0615, Give if patient unarousable, RR less than 8, or appears to be approaching respiratory arrest. Give over 15 secs. If inadequate response after 45 seconds, may repeat q1min (MAX total dose: 1 mg). Continue monitoring for a minimum of 2 hours. Notify MD if administered. Irritant. Use with caution in patients on benzodiazepine therapy. haloperidol lactate (HALDOL) injection 2.5-5 mg(Linked Group 2) 2.5-5 mg, Intravenous, EVERY 6 HOURS PRN, other, hallucinations, IF unable to take oral, Administer over 1 Minutes, Starting on Maci 07/22/23 at 0615, For CIWA Visual Disturbance Score 0-3, give NO Haloperidol For Visual Disturbance Score 4-5, give Haloperidol 2.5 mg IV and repeat scale in 1 hour For Visual Disturbance Score 6-7, give Haloperidol 5 mg IV and repeat scale in 1 hour MAX: 40 mg in 24 hours OLANZapine zydis (zyPREXA) ODT tab 5-10 mg(Linked Group 2) 5-10 mg, Oral, EVERY 6 HOURS PRN, other, hallucinations, IF able to take oral, Starting on Maci 07/22/23 at 0615, For CIWA Visual Disturbance Score 0-3, Give NO OLANZapine zydis (ZYPREXA) For Visual Disturbance Score 4-5, give OLANZapine zydis (ZYPREXA) 5 mg ODT and repeat scale in 1 hour For Visual Disturbance Score 6-7, give OLANZapine zydis (ZYPREXA) 10 mg ODT and repeat scale in 1 hour With dry hands, peel back foil backing and gently remove tablet. Do not push oral disintegrating tablet through foil backing. Administer immediately on tongue and oral disintegrating tablet dissolves in seconds, then swallow with saliva. Liquid not required. Linked Groups Order Group 1: diazepam (VALIUM) tablet 10 mgJump to med 10 mg, Oral, EVERY 30 MIN PRN, other, per CIWA-Ar score, Starting on Maci 07/22/23 at 0615, Oral dosing is the preferred route of administration. Dose according to CIWA-Ar Score: For CIWA-Ar Score LESS THAN OR EQUAL TO 7: ~ NO diazepam (VALIUM) is to be given and ~ repeat CIWA-Ar scale in 4 hours and PRN if symptomatic For CIWA-Ar Score 8-12: ~ give diazepam (VALIUM) 10 mg PO or 5 mg IV and ~ repeat CIWA-Ar scale in 2 hours For CIWA-Ar Score 13-15: ~ give diazepam (VALIUM)10 mg PO or 5 mg IV and ~ repeat CIWA-Ar scale in 30 minutes For CIWA-Ar Score GREATER THAN OR EQUAL TO 16: ~ give diazepam (VALIUM) 10mg PO or 10 mg IV and ~ repeat CIWA-Ar scale in 30 minutes Doses should be withheld for nystagmus, sedation, ataxia, dysarthria or respiratory rate less than 12. If dose is being held more than once, provider must be notified. Or diazepam (VALIUM) injection 5-10 mgJump to med 5-10 mg, Intravenous, Administer over 1-4 Minutes, EVERY 30 MIN PRN, other, per CIWA-Ar score, Starting on Maci 07/22/23 at 0615, Oral dosing is the preferred route of administration. Dose according to CIWA-Ar Score: For CIWA-Ar Score LESS THAN OR EQUAL TO 7: ~ NO diazepam (VALIUM) is to be given and ~ repeat CIWA-Ar scale in 4 hours and PRN if symptomatic For CIWA-Ar Score 8-12: ~ give diazepam (VALIUM) 10 mg PO or 5 mg IV and ~ repeat CIWA-Ar scale in 2 hours For CIWA-Ar Score 13-15: ~ give diazepam (VALIUM)10 mg PO or 5 mg IV and ~ repeat CIWA-Ar scale in 30 minutes For CIWA-Ar Score GREATER THAN OR EQUAL TO 16: ~ give diazepam (VALIUM) 10mg PO or 10 mg IV and ~ repeat CIWA-Ar scale in 30 minutes Doses should be withheld for nystagmus, sedation, ataxia, dysarthria or respiratory rate less than 12. If dose is being held more than once, provider must be notified. Vesicant. This drug may cause significant respiratory depression. Monitor respiratory status and vital signs carefully for 1 hour after each dose. Group 2: OLANZapine zydis (zyPREXA) ODT tab 5-10 mgJump to med 5-10 mg, Oral, EVERY 6 HOURS PRN, other, hallucinations, IF able to take oral, Starting on Maci 07/22/23 at 0615, For CIWA Visual Disturbance Score 0-3, Give NO OLANZapine zydis (ZYPREXA) For Visual Disturbance Score 4-5, give OLANZapine zydis (ZYPREXA) 5 mg ODT and repeat scale in 1 hour For Visual Disturbance Score 6-7, give OLANZapine zydis (ZYPREXA) 10 mg ODT and repeat scale in 1 hour With dry hands, peel back foil backing and gently remove tablet. Do not push oral disintegrating tablet through foil backing. Administer immediately on tongue and oral disintegrating tablet dissolves in seconds, then swallow with saliva. Liquid not required. Or haloperidol lactate (HALDOL) injection 2.5-5 mgJump to med 2.5-5 mg, Intravenous, EVERY 6 HOURS PRN, other, hallucinations, IF unable to take oral, Administer over 1 Minutes, Starting on Maci 07/22/23 at 0615, For CIWA Visual Disturbance Score 0-3, give NO Haloperidol For Visual Disturbance Score 4-5, give Haloperidol 2.5 mg IV and repeat scale in 1 hour For Visual Disturbance Score 6- 7, give Haloperidol 5 mg IV and repeat scale in 1 hour MAX: 40 mg in 24 hours documented in this encounter Care Teams Cylinder Block Hole Reliner Relationship Specialty Start Date End Date Home - [address] [id number] PCP - General 07/22/23 documented as of this encounter
--- OUTSIDE RECORDS SUMMARY | 2023-09-16 17:44 | XMS_ITS ---
Author Name Unknown Organization [facility] Address [address] [place] [address] Care Team Providers Care Provider Network Manager Name Role Phone Unavailable Unavailable Unavailable Surgery Details Not on file Complications Check Surgery Details section. Procedure Estimated Blood Loss Check Surgery Details section. Procedure Findings Check Surgery Details section. Procedure Specimens Taken Check Surgery Details section.
[2023-09-16] MEDS: 0.9 % SODIUM CHLORIDE 1000 ml 1,000 ML IV (18:04)
[2023-09-16] MEDS: ONDANSETRON 2 MG/ML inj 4 MG IVP (18:04)
[2023-09-16] MEDS: LORazepam 2 MG/ML inj 1 MG IVP (18:04)
[2023-09-16 18:12] LABS: Basophils Absolute Auto 0.05 K/uL (0.00-0.30); Basophils Percent Auto 0.7 % (0.0-3.0); Eosinophils Absolute Auto 0.01 K/uL (0.00-0.50); Eosinophils Percent Auto 0.1 % (0.0-7.0); Hematocrit 59.1 % (37.0-53.0); Hemoglobin* 20.2 gm/dL (13.5-17.5); Immature Granulocytes Abs Auto 0.01 K/uL (0.00-0.30); Immature Granulocytes Pct Auto 0.1 %; Lymphocytes Percent Auto 35.2 % (20-44); Mean Corpuscular HGB Conc 34 gm/dL (32-36); Mean Corpuscular Hemoglobin 30 pg (26-34); Mean Corpuscular Volume 89 fL (80-100); Monocytes Percent Auto 5.5 % (0.0-11.0); Neutrophils Absolute Auto 4.47 K/uL (1.7-7.0); Neutrophils Percent Auto 58.4 % (42.0-72.0); Platelet Count* 342 K/uL (140-440); RDW Coefficient of Variation % 13.1 % (11.5-15.5); Red Blood Count 6.68 m/uL (4.30-5.90); White Blood Count* 7.66 K/uL (4.50-11.00)
[2023-09-16 18:13] LABS: Slide Review Reflex No
[2023-09-16 18:26] LABS: Chloride* 104 mmol/L (96-114)
[2023-09-16 18:27] LABS: Albumin* 5.3 g/dL (3.3-5.0); Sodium* 145 mmol/L (135-149)
[2023-09-16 18:28] LABS: Potassium* 4.3 mmol/L (3.6-5.1)
[2023-09-16 18:30] LABS: Alkaline Phosphatase* 66 U/L (40-150); Amylase* 228 U/L (18-89); Anion Gap 15 mEq/L (7-15); Bilirubin Total* 0.8 mg/dL (0.1-1.5); Blood Urea Nitrogen* 26 mg/dL (5-24); Calcium* 8.9 mg/dL (8.4-10.6); Carbon Dioxide* 26 mmol/L (20-32); Creatinine* 1.3 mg/dL (0.5-1.5); Est. Creatinine Clearance* 87.05; Estimated Glomerular Filt Rate 73 ml/min; Glucose* 118 mg/dL (60-115); Lipase* 136 U/L (23-300)
[2023-09-16 18:36] LABS: Acetaminophen* < 10.0 ug/mL (10.0-30.0); Salicylate* < 1.0 mg/dL (1.0-10)
[2023-09-16 18:42] LABS: Ethanol* 0.34 % (0.01-0.03)
[2023-09-16 18:57] LABS: Alanine Aminotransferase* 1259 U/L (4-50); Aspartate Amino Transferase* 1574 U/L (12-35)
[2023-09-16 19:41] LABS: INR 1.08 (0.91-1.10); Prothrombin Time 14.6 Seconds
[2023-09-16 19:42] LABS: Partial Thromboplastin Time* 33 Seconds (23-33)
[2023-09-16 20:08] VITALS: BP 121/90; PULSE 118; RESP 12; O2SAT 96
[2023-09-16] MEDS: PANTOPRAZOLE SODIUM 40 MG INJ IVP (20:38)
[2023-09-16] MEDS: LACTATED RINGERS 1000 ML 1,000 ML IV (20:41)
--- NOTE | 2023-09-16 20:59 | PM.IMCN1 ---
Date of Consult Patient: [facility] Patient Consult date: 09/16/23 Requesting Physician: Other Primary Care Provider: Not a Local Provider Consult Narrative Reason for consult: Possibly admission from emergency department Narrative: Balaji Mckeon is a 33 year old male past medical history significant for alcohol use disorder, alcohol withdrawal syndrome, seizures with alcohol withdrawal, delirium tremens is seen in the emergency department. Patient tells me he came to the ED today with nausea and mild anxiety after having not had any alcohol in the past 7 hours. He tells me this is normal for him. He was initially intent on ceasing drinking in hopes of becoming sober again. The emergency physician had recommended admission in the setting of acute intoxication and onset of withdrawals to which he had told her he was in agreement with, however now he is telling me he would really rather not be admitted. He was admitted in July overnight, requesting to be discharged the following day. He tells me he would rather not stay the night tonight and would have no intention of staying several nights as further withdrawals set in. He has managed withdrawals at home and the past. He tells me he was hoping to get a prescription for Ativan in be discharged to home tonight. He actually asked me 3 times if he could get a prescription for Ativan from the emergency physician. He tells me he has clonazepam at home from a previous ED visit. He has a sober friend who brought him to the ED and would take him home and stay with him tonight. On arrival to the ED, patient was quite tachycardic with heart rate > 140 (this is noted in his previous ED visit as well), otherwise remainder of his vitals were stable. Heart rate has since improved to low 100s. He has had 2 episodes of nonbloody emesis. After receiving Zofran, his nausea has resolved. Labs remarkable for hemoglobin 20.2 (previously 17), AST 1574, ALT 1259, amylase 228, ETOH 0.34 (patient tells me he has had levels >0.4). Currently, he denies headache or dizziness. Denies chest pain or shortness of breath. No recent fevers. Denies abdominal or flank pain. No change in urination. Bowels are usually constipated. Admits to poor oral intake in the form of solids, usually drinking broth or clears. [facility]. Tells me he will likely just continue to drink. He has been instructed to closely follow-up with his PCP for further evaluation transaminitis, including a hepatic ultrasound. He tells me these numbers will likely rebound as they have in the past and is not currently worried. Discussed with ED provider, Dr. Ellie Vasquez. Patient will be discharged to home from the ED. Review of Systems Narrative: REVIEW OF SYSTEMS: Complete review of systems performed and negative unless otherwise stated in HPI or below. PFSH PFSH Medical History Alcohol use disorder ?F10.90 - Alcohol use, unspecified, uncomplicated (ICD-10) Family History Other Cardiovascular disease Diabetes Stroke Social History Narrative: patient lives alone in [place]. He is . He has a 10-year-old daughter that he sees on a regular schedule. 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 He is a and gets medical care through the [facility]. What is your current living situation?: I presently have a place to live Problems where you live: no known problems Problems where you live details: N/A In the past 12 months, utilities in danger of being shut off: no In past 12 months, lack of transportation kept you from medical appts, meetings, work, or getting things needed for daily living: no In the past 12 mos, have been you worried that your food would run out before you had money to buy more?: never true In the past 12 mos, the food you bought just didn't last and you didn't have money to buy more?: never true Highest level of school completed/degree received: some college, no degree Do you use any of these nicotine containing products: E-Cigarettes How often do you have a drink containing alcohol: 4 or more times a week Alcohol type: hard liquor AUDIT-C Alcohol total score: 4 Non-prescribed substance use: marijuana (any form) Non-prescribed substance use details: ketamine infusions Caffeine: Yes How often does anyone, including family, friends and others, physically hurt you: never How often does anyone, including family, friends and others, insult or talk down to you: never How often does anyone, including family, friends and others, threaten you with harm: never How often does anyone, including family, friends and others, scream or curse at you: never service: Yes Meds Home Medications and Allergies Home Medications Medication Instructions Recorded Confirmed Type dextroamphetamine-amphetamine ER PO 08/21/23 History 20 mg 24hr capsule,extend release Allergies Allergy/AdvReac Type Severity Reaction Status Date / Time No Known Drug Allergies Allergy Verified 09/16/23 17:17 Exam Narrative: Exam Narrative: On my exam, patient is sitting on a stool in the ED room. Mildly anxious, appropriately conversant, makes appropriate eye contact. No dyspnea on room air. Hiccuping (not unusual for him when intoxicated). Const: Vital Signs, click to edit/add: Vital Signs - 24 hr 09/16/23 17:17 09/16/23 20:08 Temperature 98.5 F Pulse Rate [Pulse Oximeter] 141 H 118 H Respiratory Rate 20 12 Blood Pressure [Ri ght Upper Arm] 119/94 H 121/90 H Pulse Oximetry 95 96 Oxygen Delivery Me thod Room Air Room Air Labs Labs: Short CBC 09/16/23 Range/Units 18:00 WBC 7.66 (4.50-11.00) K/uL Hgb 20.2 H (13.5-17.5) gm/dL Hct 59.1 H (37.0-53.0) % Plt Count 342 (140-440) K/uL BMP 09/16/23 18:00 Sodium 145 Potassium 4.3 Chloride 104 Carbon Dioxide 26 BUN 26 H Creatinine 1.3 Glucose 118 H Calcium 8.9 Liver Function 09/16/23 Range/Units 18:00 Total Bilirubin 0.8 (0.1-1.5) mg/dL AST 1574 H (12-35) U/L ALT 1259 H (4-50) U/L Alkaline Phosphatase 66 (40-150) U/L Albumin 5.3 H (3.3-5.0) g/dL Assessment and Plan Assessment and plan (1) Alcoholic intoxication: Problem comment: Current blood alcohol 0.34 Declines admission Status: Acute (2) Alcohol use disorder: Problem comment: With history of withdrawal seizures, DTs [facility] and [facility] to follow-up in order to establish plan for maintenance of sobriety Status: Acute (3) Transaminitis: Problem comment: Reviewed with patient, recommend follow-up with PCP, further labs, hepatic ultrasound Status: Acute Total Time Spent Total Time Spent: Total time spent caring for the patient today was 45 minutes. This includes time spent for the visit reviewing the chart, time spent during the visit, time spent after the visit and documentation and planning in coordination of care.
[2023-09-16 21:47] VITALS: BP 124/78; PULSE 99; RESP 12; TEMP 36.9; O2SAT 96
[2023-09-16 21:49] VITALS: O2SAT 98
[2023-09-16 21:54] VITALS: BP 124/78; PULSE 99; RESP 12; TEMP 36.9
== END 2023-09-16 21:54 | disposition home or self-care (01) ==
PROVIDERS: Family Medicine; Emergency Provider Internal Medicine
DX: F10.129 Alcohol abuse with intoxication, unspecified (principal); K70.10 Alcoholic hepatitis without ascites
CPT/HCPCS: 36415; 80053; 80143; 80179; 80306; 82077; 82150; 83690; 85025; 85610; 85730; 94761; 96374; 96375; 99284; C9113; J2060; J2405; J7030; J7120

== ENCOUNTER 2024-03-19 00:25 | Outpatient (CLI) | payer OTHER, SELFPAY ==
--- OUTSIDE RECORDS SUMMARY | 2024-04-06 12:19 | XMS_ITS | Clinical Summary ---
Author Organization [facility] Address [address] [place] [address] Care Team Providers Care Cork Pressing Machine Operator Name Role Phone Provider, No Primary Primary Care Provider Unava ilable Allergies No known active allergies Medications Medication Sig Dispensed Refills Start Date End Date Status melatonin 3 mg oral Tablet Take 1 Tablet (3 mg) by mouth at bedtime. Active dextroamphetamine-amph etamine (ADDERALL XR) 20 mg oral Capsule, Sust. Release 24HR Take 1 Capsule (20 mg) by mouth in the morning and 1 Capsule (20 mg) in the evening. Active thiamine (VIT B1) 100 mg oral Tablet Take 1 Tablet (100 mg) by mouth in the morning. Active traZODone (DESYREL) 100 mg oral Tablet Take 1 Tablet (100 mg) by mouth if needed at bedtime for sleep. Active multivitamin with minerals oral Tablet Take 1 Tablet by mouth in the morning. Active Active Problems Problem Noted Date Diagnosed Date Alcohol withdrawal syndrome without complication 03/24/2023 Social History Tobacco Use Types Packs/Day Years Used Date Smoking Tobacco: Every Day Cigarettes 0.5 14.4 Started: 11/05/2009 Passive Smoke Exposure: Past Smokeless [...] Sign Reading Time Taken Comments Blood Pressure 129/86 10/17/2023 2:46 AM CDT Pulse 105 10/17/2023 2:46 AM CDT Temperature 36.8 ??C (98.2 ??F) 10/16/2023 9:39 PM CD T Respiratory Rate 16 10/16/2023 9:39 PM CDT Oxygen Saturation 95% 10/17/2023 2:46 AM CDT Inhaled Oxygen Concentration - - Weight 93.4 kg (205 lb 14.4 oz) 03/26/2023 6:07 AM CDT Height 182.9 cm (6') 03/24/2023 1:04 AM CDT Body Mass Index 27.93 03/24/2023 1:04 AM CDT Plan of Treatment Health Maintenance Due Date Last Done Comments Depression Screening 2000 HIV Screen 2003 COVID-19 Vaccine ( season) 2023 09/26/2020, 08/28/2020 Lipids Standard 2023 Influenza Vaccine (#1) 2024 , 02/02/2020, 02/28/2019, Additional history exists DTaP/Tdap/Td Vaccines (5 - Td or Tdap) [...] Procedure Name Priority Date/Time Associated Diagnosis Comments HEPATITIS C AB Routine 03/24/2023 1:05 PM CDT from Last 3 Months or Most Recently Relevant to Health Maintenance Results * HEPATITIS C AB (03/24/2023 1:05 PM CDT) HCV Ab Nonreactive Nonreactive 03/24/2023 2:09 PM CDT [facility] Comment:Interpretation: Anti bodies to HCV were not detected; does not exclude the possibility of exposure to HCV. Blood VENOUS BLOOD / Unknown Venipuncture / Unknown 03/24/2023 1:05 PM CDT 03/24/2023 1:14 PM CDT Baldemar Monson MD LAB SEROLOGY ORDERAB LES [facility] [address] [place] [address], from Last 3 Months or Most Recently Relevant to Health Maintenance Advance Directives * Full Code (Latest Code Status on File) Date Activated Date Inactivated Comments 03/24/2023 5:01 AM 03/26/2023 4:25 PM Care Teams Cork Pressing Machine Operator Relationship Specialty Start Date End Date Provider, No Primary . [place] [id number] PCP - General 03/23/23 Additional Source Comments PLEASE NOTE: Replies to this message will not be received.[facility]
--- OUTSIDE RECORDS SUMMARY | 2024-04-06 12:19 | XMS_ITS | Referral Summary ---
Author Organization [facility] Address [address] [place] [address] Care Team Providers Care Electroneurodiagnostic Technologist Name Role Phone None Reported, Pcp Primary Care Provider Unavail able Source Comments Patient records contain information from all sites at [facility]. For routine questions regarding patient records, call [phone] during business hours, M-F 8:00 AM - 5:00 PM Central Time. Record requests for emergency care only can be directed to [phone] at any time.[facility] Allergies No known active allergies Medications amphetamine-dext roamphetamine (ADDERALL XR) 30 mg 24 hr capsule Take 30 mg by mouth 2 (two) times a day. 08/19/2023 Active Social History Tobacco Use Types [...] Recorded Sex Assigned at Not on file Legal Sex Male 5:19 AM CDT Gender Identity Not on file Sexual Orientation [...] - Plan of Treatment Not on file Insurance [employer] Care Teams Electroneurodiagnostic Technologist Relationship Specialty Start Date End Date None Reported, Pcp PCP - General Family Medicine 08/25/23
--- OUTSIDE RECORDS SUMMARY | 2024-04-06 12:19 | XMS_ITS | Referral Summary ---
Author Organization [email or web address] Address [address] [place] [address] Care Team Providers Care Heavy Mobile Equipment Operator Name Role Phone Provider, No Primary [...] Mass Index 27.93 03/24/2023 1:04 AM CDT Functional Status Functional Status Response Date of [...] physical, mental, or emotional condition? No 03/24/2023 Plan of Treatment Not on file Procedures Procedure Name Priority Date/Time Associated Diagnosis Comments HEPATITIS C AB Routine 03/24/2023 1:05 PM CDT from Last 3 Months or Most Recently Relevant to Health Maintenance Results * HEPATITIS C AB (03/24/2023 1:05 PM CDT) HCV Ab Nonreactive Nonreactive 03/24/2023 2:09 PM CDT [facility] Comment:Interpretation: Anti bodies to HCV were not detected; does not exclude the possibility of exposure to HCV. Blood VENOUS BLOOD / Unknown Venipuncture / Unknown 03/24/2023 1:05 PM CDT 03/24/2023 1:14 PM CDT Baldemar Monson MD LAB SEROLOGY ORDERAB LES [facility] [address] [place] [address], from Last 3 Months or Most Recently Relevant to Health Maintenance Advance Directives * Full Code (Latest Code Status on File) Date Activated Date Inactivated Comments 03/24/2023 5:01 AM 03/26/2023 4:25 PM Care Teams Heavy Mobile Equipment Operator Relationship Specialty Start Date End Date Provider, No Primary . [place] [id number] PCP - General 03/23/23 Additional Source Comments PLEASE NOTE: Replies to this message will not be received.[facility]
--- OUTSIDE RECORDS SUMMARY | 2024-04-06 12:19 | XMS_ITS ---
Author Organization [facility] Address [address] [place] [address] Care Team Providers Care Auto Job Estimator Name Role Phone Unavailable Unavailable Unavailable Surgery Details Not on file Complications Check Surgery Details section. Procedure Estimated Blood Loss Check Surgery Details section. Procedure Findings Check Surgery Details section. Procedure Specimens Taken Check Surgery Details section.
--- OUTSIDE RECORDS SUMMARY | 2024-04-06 12:19 | XMS_ITS | Clinical Summary ---
Author Organization [employer] [facility] Address [place], [place] [address] Care Team Providers Care Type Rolling Machine Operator Name Role Phone Pcp, No Primary Care Provider Unavailabl e Allergies No known active allergies Medications Medication Sig Dispensed Refills Start Date End Date Status diphenhydrAMINE (BENADRYL) 50 mg capsule Take 1 capsule by mouth every 4 hours if needed for Sleep or Other (Specify) (Anxiety). 0 04/16/2014 Active melatonin 3 mg tablet Take 1-2 tablets by mouth at bedtime if needed (insomnia). 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 Immunizations Name Administration Dates Next Due Influenza, IIV4 04/13/2014 Social History Tobacco Use Types Packs/Day Years Used Date Smoking Tobacco: Never Smokeless Tobacco: Current Chew Comments:1 can per day for 1 0 years Alcohol Use Standard Drinks/Week Comments Yes 0 (1 standard drink = 0.6 oz pure alcohol) 3/4 liter per day for two months Sex and Gender Information Value Date Recorded Sex Assigned at Not on file Gender Identity Not on file Sexual Orientation Not on file Obstetrics History Last Filed Vital Signs Vital Sign Reading Time Taken Comments Blood Pressure 136/92 10/29/2023 10:35 PM CDT Pulse 111 10/29/2023 10:35 PM CDT Temperature 36.6 ??C (97.8 ??F) 10/29/2023 10:35 PM C DT Respiratory Rate 18 10/29/2023 10:35 PM CDT Oxygen Saturation 93% 10/29/2023 10:35 PM CDT Inhaled Oxygen Concentration - - Weight 93 kg (205 lb) 10/29/2023 8:49 PM CDT Height 182.9 cm (6') 10/29/2023 8:49 PM CDT Body Mass Index 27.8 10/29/2023 8:49 PM CDT Plan of Treatment Health Maintenance Due Date Last Done Comments Tdap 1999 Depression screening for age 12+ 2000 BMI (ht and wt on same day) for age 18+ 2006 Hepatitis C screening for ag e 18-79 2006 Tetanus booster 2008 Lipids for age 35-44 2023 COVID-19 vaccine series ( season) 2024 Influenza for age 9-49 02/06/2024 04/13/2014 HIV for age 15-65 Completed 04/12/2014 Pneumococcal series for age 6-64 Aged Out No longer eligible based on patient's age to complete this topic Procedures Procedure Name Priority Date/Time Associated Diagnosis Comments ANTI HIV 1/2 Today 04/12/2014 12:45 PM DEPARTMENT COORDINATOR from Last 3 Months or Most Recently Relevant to Health Maintenance Results * HIV 1&2 TODAY (04/12/2014 12:45 PM DEPARTMENT COORDINATOR) HIV-1/HIV-2 ANTIBODY Non-Reacti ve Non-Reacti ve 04/12/2014 2:19 PM DEPARTMENT COORDINATOR [facility] [employer] [facility] Blood specimen (specimen) BLOOD SPECIMEN / Unknown Venipuncture / Unknown 04/12/2014 12:45 PM DEPARTMENT COORDINATOR 04/12/2014 1:26 PM DEPARTMENT COORDINATOR Narrative [facility] - 04/12/2014 2:19 PM DEPARTMENT COORDINATOR HIV-1 p24 and HIV-1/HIV-2 Ab not detected Queenie Enriquez MD SEND OUTS [facility] [employer] [facility] [address] [place] [address], [place] from Last 3 Months or Most Recently Relevant to Health Maintenance Advance Directives * Full Code (Latest Code Status on File) Date Activated Date Inactivated Comments 04/11/2014 8:13 PM 04/16/2014 4:15 PM Care Teams Type Rolling Machine Operator Relationship Specialty Start Date End Date Pcp, No . PCP - General 04/11/14
--- OUTSIDE RECORDS SUMMARY | 2024-04-06 12:19 | XMS_ITS | Clinical Summary ---
Author Organization [facility] Address [address] [place] [address]. [place] [address] Care Team Providers Care Grant Manager Name Role Phone Home - [place], [place] [facility] Primary C are Provider Allergies No known active allergies Medications chlordiazePOXID E (LIBRIUM) 25 MG capsule Take 1-2 capsules (25-50 mg) by mouth 4 times daily as needed for anxiety or withdrawal 24 capsule 4 Active gabapentin (NEURONTIN) 300 MG capsule Take 1 capsule (300 mg) by mouth 3 times daily for 3 days 9 capsule 4 Active Social History Tobacco Use Types Packs/Day Years Used Date Smoking Tobacco: Never Assessed Adolescent Education Answer Date Record ed Getting School Help Needed Not on file 07/22 Sex and Gender Information Value Date Recorded Sex Assigned at Not on file Legal Sex Male 4:41 AM SPINNER FIXER Gender Identity Not on file Sexual Orientation Not on file Last Filed Vital Signs Vital Sign Reading Time Taken Comments Blood Pressure 156/96 07/22/2023 9:49 AM SPINNER FIXER Pulse 102 07/22/2023 9:49 AM SPINNER FIXER Temperature 36.4 ??C (97.5 ??F) 07/22/2023 5:17 AM CS T Respiratory Rate 20 07/22/2023 9:49 AM SPINNER FIXER Oxygen Saturation 98% 07/22/2023 9:49 AM SPINNER FIXER Inhaled Oxygen Concentration - - Weight 95.3 kg (210 lb) 07/22/2023 5:17 AM SPINNER FIXER Height 182.9 cm (6') 07/22/2023 5:17 AM SPINNER FIXER Body Mass Index 28.48 07/22/2023 5:17 AM SPINNER FIXER Plan of Treatment Health Maintenance Due Date Last Done Comments ADVANCE CARE PLANNING 1988 ANNUAL REVIEW OF HM ORDERS 1988 HIV SCREENING 2003 HEPATITIS C SCREENING 2006 YEARLY PREVENTIVE VISIT 10/06/2022 10/06/2021 PHQ-2 (once per calendar year) 2023 COVID-19 Vaccine (3 - season) 2024 09/26/2020, 08/28/2020 INFLUENZA VACCINE (#1) 2024 , 02/02/2020, 02/28/2019, Additional history exists GLUCOSE 07/22/2026 07/22/2023 DTAP/TDAP/TD IMMUNIZATION (5 - Td or Tdap) 02/23/2027 02/23/2017, 06/10/2016, 10/07/2015, Additional history exists RSV VACCINE (1 - 1-dose 75+ series) 2063 MENINGITIS IMMUNIZATION Aged Out 04/04/2008 No l [...] Procedure Name Priority Date/Time Associated Diagnosis Comments COMPREHENSIVE METABOLIC PANEL STAT 07/22/2023 5:41 AM SPINNER FIXER from Last 3 Months or Most Recently Relevant to Health Maintenance Results * (ABNORMAL) Comprehensive metabolic panel (07/22/2023 5:41 AM SPINNER FIXER) Sodium 138 135 - 145 mmol/L 07/22/2023 6:17 AM [facility] Comment:Reference intervals for this test were updated on 03/02/2023 to more accurately reflect our healthy population. There may be differences in the flagging of prior results with similar values performed with this method. Interpretation of those prior results can be made in the context of the updated reference intervals. Potassium 3.7 3.4 - 5.3 mmol/L 07/22/2023 6:17 AM [facility] Carbon Dioxide (CO2) 25 22 - 29 mmol/L 07/22/2023 6:17 AM [facility] Anion Gap 17(H) 7 - 15 mmol/L 07/22/2023 6:17 AM [facility] Urea Nitrogen 11.8 6.0 - 20.0 mg/dL 07/22/2023 6:17 AM [facility] Creatinine 0.82 0.67 - 1.17 mg/dL 07/22/2023 6:17 AM [facility] GFR Estimate >90 >60 mL/min/1. 73m2 07/22/2023 6:17 AM [facility] Calcium 7.9(L) 8.6 - 10.0 mg/dL 07/22/2023 6:17 AM [facility] Chloride 96(L) 98 - 107 mmol/L 07/22/2023 6:17 AM [facility] Glucose 153(H) 70 - 99 mg/dL 07/22/2023 6:17 AM [facility] Alkaline Phosphatase 71 40 - 150 U/L 07/22/2023 6:17 AM [facility] Comment:Reference intervals for this test were updated on 04/20/2023 to more accurately reflect our healthy population. There may be differences in the flagging of prior results with similar values performed with this method. Interpretation of those prior results can be made in the context of the updated reference intervals. AST 131(H) 0 - 45 U/L 07/22/2023 6:17 AM [facility] Comment:Reference intervals for this test were updated on 11/16/2022 to more accurately reflect our healthy population. There may be differences in the flagging of prior results with similar values performed with this method. Interpretation of those prior results can be made in the context of the updated reference intervals. ALT 94(H) 0 - 70 U/L 07/22/2023 6:17 AM [facility] Comment:Reference intervals for this test were updated on 11/16/2022 to more accurately reflect our healthy population. There may be differences in the flagging of prior results with similar values performed with this method. Interpretation of those prior results can be made in the context of the updated reference intervals. Protein Total 6.8 6.4 - 8.3 g/dL 07/22/2023 6:17 AM [facility] Albumin 4.2 3.5 - 5.2 g/dL 07/22/2023 6:17 AM SPINNER FIXER [facility] Bilirubin Total 0.9 <=1.2 mg/dL 07/22/2023 6:17 AM SPINNER FIXER [facility] Blood STRUCTURE OF RIGHT UPPER LIMB / Unknown Venipuncture / Unknown 07/22/2023 5:41 AM SPINNER FIXER 07/22/2023 5:54 AM SPINNER FIXER us Ayo Boyce MD LAB - BLOOD ORDERABLES Final Result [facility] [address] Lab (1st floor, no room number) [place] [address], [facility] [phone] from Last 3 Months or Most Recently Relevant to Health Maintenance Care Teams Grant Manager Relationship Specialty Start Date End Date Home - [facility] [address] [place] [address] PCP - General 07/22/23
--- OUTSIDE RECORDS SUMMARY | 2024-04-06 12:19 | XMS_ITS | Referral Summary ---
Author Organization [facility] Address [address] [place] [id number] Care Team Providers Care Decorative Engraver Apprentice Name Role Phone Home - [place], [place] [facility] Primary C are Provider Allergies [...] on file Legal Sex Male 4:41 AM TRAFFIC SUPERINTENDENT Gender Identity Not on file Sexual Orientation Not on file Last Filed Vital Signs Vital Sign Reading Time Taken Comments Blood Pressure 156/96 07/22/2023 9:49 AM TRAFFIC SUPERINTENDENT Pulse 102 07/22/2023 9:49 AM TRAFFIC SUPERINTENDENT Temperature 36.4 ??C (97.5 ??F) 07/22/2023 5:17 AM CS T Respiratory Rate 20 07/22/2023 9:49 AM TRAFFIC SUPERINTENDENT Oxygen Saturation 98% 07/22/2023 9:49 AM TRAFFIC SUPERINTENDENT Inhaled Oxygen Concentration - - Weight 95.3 kg (210 lb) 07/22/2023 5:17 AM TRAFFIC SUPERINTENDENT Height 182.9 cm (6') 07/22/2023 5:17 AM TRAFFIC SUPERINTENDENT Body Mass Index 28.48 07/22/2023 5:17 AM TRAFFIC SUPERINTENDENT Plan of Treatment Not on file Procedures Procedure Name Priority Date/Time Associated Diagnosis Comments COMPREHENSIVE METABOLIC PANEL STAT 07/22/2023 5:41 AM TRAFFIC SUPERINTENDENT from Last 3 Months or Most Recently Relevant to Health Maintenance Results * (ABNORMAL) Comprehensive metabolic panel (07/22/2023 5:41 AM TRAFFIC SUPERINTENDENT) [facility] [address] Sodium 138 135 - 145 mmol/L 07/22/2023 6:17 AM [facility] Comment:Reference intervals for this test were updated on 03/02/2023 to more accurately reflect our healthy population. There may be differences in the flagging of prior results with similar values performed with this method. Interpretation of those prior results can be made in the context of the updated reference intervals. Potassium 3.7 3.4 - 5.3 mmol/L 07/22/2023 6:17 AM [facility] Carbon Dioxide (CO2) 25 22 - 29 mmol/L 07/22/2023 6:17 AM [facility] Anion Gap 17(H) 7 - 15 mmol/L 07/22/2023 6:17 AM [facility] Urea Nitrogen 11.8 6.0 - 20.0 mg/dL 07/22/2023 6:17 AM [facility] Creatinine 0.82 0.67 - 1.17 mg/dL 07/22/2023 6:17 AM [facility] GFR Estimate >90 >60 mL/min/1. 73m2 07/22/2023 6:17 AM [facility] Calcium 7.9(L) 8.6 - 10.0 mg/dL 07/22/2023 6:17 AM [facility] Chloride 96(L) 98 - 107 mmol/L 07/22/2023 6:17 AM [facility] Glucose 153(H) 70 - 99 mg/dL 07/22/2023 6:17 AM [facility] Alkaline Phosphatase 71 40 - 150 U/L 07/22/2023 6:17 AM [facility] Comment:Reference intervals for this test were updated on 04/20/2023 to more accurately reflect our healthy population. There may be differences in the flagging of prior results with similar values performed with this method. Interpretation of those prior results can be made in the context of the updated reference intervals. AST 131(H) 0 - 45 U/L 07/22/2023 6:17 AM [facility] Comment:Reference intervals for this test were updated on 11/16/2022 to more accurately reflect our healthy population. There may be differences in the flagging of prior results with similar values performed with this method. Interpretation of those prior results can be made in the context of the updated reference intervals. ALT 94(H) 0 - 70 U/L 07/22/2023 6:17 AM TRAFFIC SUPERINTENDENT [facility] Comment:Reference intervals for this test were updated on 11/16/2022 to more accurately reflect our healthy population. There may be differences in the flagging of prior results with similar values performed with this method. Interpretation of those prior results can be made in the context of the updated reference intervals. Protein Total 6.8 6.4 - 8.3 g/dL 07/22/2023 6:17 AM TRAFFIC SUPERINTENDENT [facility] Albumin 4.2 3.5 - 5.2 g/dL 07/22/2023 6:17 AM TRAFFIC SUPERINTENDENT [facility] Bilirubin Total 0.9 <=1.2 mg/dL 07/22/2023 6:17 AM TRAFFIC SUPERINTENDENT [facility] Blood STRUCTURE OF RIGHT UPPER LIMB / Unknown Venipuncture / Unknown 07/22/2023 5:41 AM TRAFFIC SUPERINTENDENT 07/22/2023 5:54 AM TRAFFIC SUPERINTENDENT us Ayo Boyce MD LAB - BLOOD ORDERABLES Final Result [facility] Acute [facility] Lab [address] Lab (1st floor, no room number) [place] [address], [facility] [phone] from Last 3 Months or Most Recently Relevant to Health Maintenance Care Teams Decorative Engraver Apprentice Relationship Specialty Start Date End Date Home - [address] [address] PCP - General 07/22/23
--- OUTSIDE RECORDS SUMMARY | 2024-04-06 12:19 | XMS_ITS | Clinical Summary ---
Author Organization [facility] Address [address], [place] [address] Care Team Providers Care Social Psychologist Name Role Phone Feliciano Dexter MD Primary Care Provider [phone] Source Comments You are receiving this document as you are listed as the primary care provider,follow-up provider, or the patient has been referred to you for consultation.This is in compliance with the Medicare and[facility] System[facility]id EHR Incentive Program,which states Providers who transition their patient to another setting of careor provider of care or refers their patient to another provider of care shouldprovide summary care record for each transition of care or referral. 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 Patient Reported Respiratory Rate 18 10/12/2017 11:4 [...] Screening (Preventive Services) 2004 HepB (1) 2007 Adult Preventive Visit 10/07/2023 10/06/2021 COVID-19 Vaccine (3 - season) 2024 09/26/2020, 08/28/2020 Influenza (#1) 2024 02/07/2021, 08/01/2020, 02/28/2019, Additional history exists Cholesterol 10/06/2026 10/06/2021 DTaP/Tdap/Td (2 - Tdap) [...] on patient's age to complete this topic Infant RSV Aged Out No longer eligi ble based [...] - 199 mg/dL 10/06/2021 2:44 PM CDT [facility] HDL Cholesterol 29(L) >=40 mg/dL 2:44 PM T [facility] Non HDL Chol, Calculated 175(H) <=159 mg/dL 10/06/2021 2:44 PM T [facility] Blood Venipuncture / Unknown 10/06/2021 12:58 PM CDT 10/06/2021 12:58 PM CDT Feliciano Dexter MD LAB_1 [facility] [address] [facility] [place] [address], [facility] [phone] from Last 3 Months or Most Recently Relevant to Health Maintenance Care Teams Social Psychologist Relationship Specialty Start [place] [address] [place] [address] PCP - General Family Practice 02/22/17
--- OUTSIDE RECORDS SUMMARY | 2024-04-06 12:19 | XMS_ITS | Clinical Summary ---
Author Organization [facility] Address [address] [place] [address] Care Team Providers Care Skimmer Reverberatory Name Role Phone None Reported, Pcp Primary Care Provider Unavail able Source Comments Patient records contain information from all sites at [facility]. For routine questions regarding patient records, call [phone] during business hours, M-F 8:00 AM - 5:00 PM Central Time. Record requests for emergency care only can be directed to [phone] at any time.[facility] Allergies No known active allergies Medications amphetamine-dext [...] (Cholesterol) Screening 1988 Tobacco Cessation counseling 1988 IPV Vaccines (2 of 3 - Adult catch-up series) 05/28/2008 04/30/2008 Pneumococcal vaccine (0-64 years) (2 of 2 - PCV) 09/03/2017 09/03/2016, 04/04/2008 Depression Screening (Annual PHQ-2) 06/07/2023 COVID-19 Vaccine (3 - season) 2024 09/26/2020, 08/28/2020 Influenza Vaccine (#1) 2024 , 02/02/2020, 02/28/2019, Additional history exists DTaP,Tdap,and Td Vaccines (4 - Td or Tdap) 02/23/2027 02/23/2017, 06/10/2016, 10/07/2015 Hepatitis B Vaccines Completed 02/13/2009, 05/01/2008, 04/30/2008, Additional history exists HPV Vaccines Aged Out No longer eligi ble based on patient's age to complete this topic Insurance [facility] Care Teams Skimmer Reverberatory Relationship Specialty Start Date End Date None Reported, Pcp PCP - General Family Medicine 08/25/23
== END 2024-03-19 00:26 | disposition home or self-care (01) ==
LOC: AMB 04-06 12:17
PROVIDERS: Visit Provider Family Medicine
DX: R06.09 Other forms of dyspnea (principal)
CPT/HCPCS: A0998

== ENCOUNTER 2024-08-19 09:24 | Emergency (ER) | payer OTHER, SELFPAY ==
[2024-08-19] VITALS (19 sets, daily range): BP systolic 105–138; BP diastolic 59–96; PULSE 106–128; RESP 12–24; TEMP 35.8–36.2; O2SAT 93–100; BMI 29.2
--- OUTSIDE RECORDS SUMMARY | 2024-08-19 09:26 | XMS_ITS | Clinical Summary ---
Author Organization [facility] Address [address], [place] [address] Care Team Providers Care Animal Daycare Provider Name Role Phone Feliciano Dexter MD Primary Care Provider [phone] Source Comments You are receiving this document as you are listed as the primary care provider,follow-up provider, or the patient has been referred to you for consultation.This is in compliance with the Medicare and[facility]centive [facility],which states Providers who transition their patient to another setting of careor provider of care or refers their patient to another provider of care shouldprovide summary care record for each transition of care or referral. [facility] Allergies No known active allergies Medications amphetamine-dextro amphetamine XR (ADDERALL XR) 20 MG 24 hour release capsuleIndications :ADHD (attention deficit hyperactivity disorder), inattentive type (C) Take 2 Capsules (40 mg) by mouth daily. Do not start before October 30, 2022. 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 12/13/2013 07/08/2021 Immunizations Immunization Administration Dates Next Due Fluzone Qiv Multidose Vial 0.25 (6-35 Mos) 02/28 [id number] 04/12/2013 Influenza (Flucelvax), Preserv Free QIV 03/17/20 18 Influenza (Fluzone 0.25, 6-35 mos) 01/23/2017 Influenza IIV4 (Quadrivalent) 0.5mL (95813) 08/2020,02/02/2020,04/13/2014 Moderna Monovalent 12+ 09/26/2020,08/28/2020 Tdap 02/23/2017 [...] at Not on file Legal Sex Male 5:45 AM CDT Gender Identity Not on file Sexual Orientation Not on file 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 on file Not on file Not on file Last Filed Vital Signs Vital Sign Reading Time Taken Comments Blood Pressure 118/77 10/06/2021 12:21 PM CDT Pulse 75 10/06/2021 12:21 PM CDT Temperature 36.8 C (98.2 F) 07/08/2021 8:30 AM HAMMER SMITH Patient Reported Respiratory Rate 18 10/12/2017 11:4 [...] Adult Preventive Visit 10/07/2023 10/06/2021 COVID-19 Vaccine ( season) 2024 09/26/2020, 08/28/2020 Influenza (#1) 2024 02/07/2021, 01/06, 02/28/2019, Additional history exists Cholesterol 10/06/2026 10/06/2021 [...] on patient's age to complete this topic Meningococcal B Aged Out No longer el igible based on patient's age to complete this [...] - 199 mg/dL 10/06/2021 2:44 PM CDT [facility] HDL Cholesterol 29(L) >=40 mg/dL 2:44 PM CDT [facility] Non HDL Chol, Calculated 175(H) <=159 mg/dL 10/06/2021 2:44 PM CDT [facility] Blood Venipuncture / Unknown 10/06/2021 12:58 PM CDT 10/06/2021 12:58 PM CDT Feliciano Dexter MD LAB_1 Final Result [facility] [address] [place] [address], [facility] [phone] from Last 3 Months or Most Recently Relevant to Health Maintenance Insurance [facility] OUT OF STATE Care Teams Animal Daycare Provider Relationship Specialty Start [place] [address] [address] [address] PCP - General Family Practice 02/22/17
--- OUTSIDE RECORDS SUMMARY | 2024-08-19 09:26 | XMS_ITS | Clinical Summary ---
Author Organization 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 No 10/29/2023 Interpersonal Safety Abuse 12 - 18 Not on file 10/29/2023 Interpersonal Safety Ambulatory Vulnerability No t on file 10/29/2023 Sex and Gender Information Value Date Recorded Sex Assigned at Not on file Legal Sex Male 12:38 PM STEAM STATION SUPERVISOR Gender Identity Not on file Sexual Orientation Not on file Obstetrics History Last Filed Vital Signs Vital Sign Reading Time Taken Comments Blood Pressure 136/92 10/29/2023 10:35 PM CDT Pulse 111 10/29/2023 10:35 PM CDT Temperature 36.6 C (97.8 F) 10/29/2023 10:35 PM CDT Respiratory Rate 18 10/29/2023 10:35 PM CDT [...] age 18+ 2006 Hepatitis C screening for age 18-79 2006 Pneumococcal series for age 6-49 (1 of 2 - PCV) 2006 Tetanus booster 2008 Lipids for age 35-44 2023 (IA) Influenza for age 9-49 02/06/2024 04/13/2014 COVID-19 vaccine series ( season) HIV for age 15-65 Completed 04/12/2014 Procedures Procedure Name Priority Date/Time Associated Diagnosis Comments ANTI HIV 1/2 Today 04/12/2014 12:45 PM STEAM STATION SUPERVISOR from Last 3 Months or Most Recently Relevant to Health Maintenance Results * HIV 1&2 TODAY (04/12/2014 12:45 PM STEAM STATION SUPERVISOR) HIV-1/HIV-2 ANTIBODY Non-Reacti ve Non-Reacti ve 04/12/2014 2:19 PM STEAM STATION SUPERVISOR [facility] Blood specimen (specimen) BLOOD SPECIMEN / Unknown Venipuncture / Unknown 04/12/2014 12:45 PM STEAM STATION SUPERVISOR 04/12/2014 1:26 PM STEAM STATION SUPERVISOR Narrative [facility] - 04/12/2014 2:19 PM STEAM STATION SUPERVISOR HIV-1 p24 and HIV-1/HIV-2 Ab not detected us Queenie Enriquez MD SEND OUTS Final Res ult [facility] [address] [place] [address], [place] from Last 3 Months or Most Recently Relevant to Health Maintenance Insurance [employer] [facility] [place] [address] Advance Directives * Full Code (Latest Code Status on File) Date Activated Date Inactivated Comments 04/11/2014 8:13 PM 04/16/2014 4:15 PM Care Teams Package Dyer Relationship Specialty Start Date End Date Pcp, No Demetrius PCP - General 04/11/14
--- OUTSIDE RECORDS SUMMARY | 2024-08-19 09:26 | XMS_ITS | Clinical Summary ---
Author Organization [facility] Address [address] [place] [address] Care Team Providers Care Logger Name Role Phone Home - [place], [place] [facility] Primary C are Provider Allergies [...] on file Legal Sex Male 4:41 AM SENIOR SOUS CHEF Gender Identity Not on file Sexual Orientation Not on file Last Filed Vital Signs Vital Sign Reading Time Taken Comments Blood Pressure 156/96 07/22/2023 9:49 AM SENIOR SOUS CHEF Pulse 102 07/22/2023 9:49 AM SENIOR SOUS CHEF Temperature 36.4 C (97.5 F) 07/22/2023 5:17 AM SENIOR SOUS CHEF Respiratory Rate 20 07/22/2023 9:49 AM SENIOR SOUS CHEF Oxygen Saturation 98% 07/22/2023 9:49 AM SENIOR SOUS CHEF Inhaled Oxygen Concentration - - Weight 95.3 kg (210 lb) 07/22/2023 5:17 AM SENIOR S[facility] CHEF Height 182.9 cm (6') 07/22/2023 5:17 AM S[facility]IOR [facility]F Body Mass Index 28.48 07/22/2023 5:17 AM SENIOR SOUS CHEF Plan of Treatment Health Maintenance Due Date Last Done Comments ADVANCE CARE PLANNING 1988 ANNUAL REVIEW OF HM ORDERS 1988 HIV SCREENING 2003 YEARLY PREVENTIVE VISIT 10/06/2022 10/06/2021 COVID-19 Vaccine (3 - season) 2024 09/26/2020, 08/28/2020 INFLUENZA VACCINE (#1) 2024 , 02/02/2020, 02/28/2019, Additional history exists PHQ-2 (once per calendar year) 2024 GLUCOSE 07/22/2026 07/22/2023 DTAP/TDAP/TD IMMUNIZATION (5 - Td or Tdap) 02/23/2027 02/23/2017, 06/10/2016, 10/07/2015, Additional history exists ZOSTER IMMUNIZATION (1 of 2) 2038 MENINGITIS IMMUNIZATION Aged Out 04/04/2008 No l onger eligible based on patient's age to complete this topic HEPATITIS B IMMUNIZATION Completed 009, 05/01/2008, 04/30/2008, Additional history exists Pneumococcal Vaccine: Pediatrics (0 to 5 Years) and At-Risk Patients (6 to 49 Years) Aged Out 09/03/2016, 04/04/2008 No longer eligibl e based on patient's age to complete this topic HEPATITIS C SCREENING Completed 03/24/2023, 023 HPV IMMUNIZATION Aged Out No longer e ligible based on patient's age to complete this topic Procedures Procedure Name Priority Date/Time Associated Diagnosis Comments COMPREHENSIVE METABOLIC PANEL STAT 07/22/2023 5:41 AM SENIOR SOUS CHEF from Last 3 Months or Most Recently Relevant to Health Maintenance Results * (ABNORMAL) Comprehensive metabolic panel (07/22/2023 5:41 AM SENIOR SOUS CHEF) Pathologist [facility] Sodium 138 135 - 145 mmol/L 07/22/2023 6:17 AM SENIOR [facility] Comment:Reference intervals for this test were updated on 03/02/2023 to more accurately reflect our healthy population. There may be differences in the flagging of prior results with similar values performed with this method. Interpretation of those prior results can be made in the context of the updated reference intervals. Potassium 3.7 3.4 - 5.3 mmol/L 07/22/2023 6:17 AM [facility] Carbon Dioxide (CO2) 25 22 - 29 mmol/L 07/22/2023 6:17 AM [facility] Anion Gap 17(H) 7 - 15 mmol/L 07/22/2023 6:17 AM [facility] Urea Nitrogen 11.8 6.0 - 20.0 mg/dL 07/22/2023 6:17 AM [facility] Creatinine 0.82 0.67 - 1.17 mg/dL 07/22/2023 6:17 AM [facility] GFR Estimate >90 >60 mL/min/1. 73m2 07/22/2023 6:17 AM [facility] Calcium 7.9(L) 8.6 - 10.0 mg/dL 07/22/2023 6:17 AM [facility] Chloride 96(L) 98 - 107 mmol/L 07/22/2023 6:17 AM [facility] Glucose 153(H) 70 - 99 mg/dL 07/22/2023 6:17 AM [facility] Alkaline Phosphatase 71 40 - 150 U/L 07/22/2023 6:17 AM [facility] Comment:Reference intervals for this test were updated on 04/20/2023 to more accurately reflect our healthy population. There may be differences in the flagging of prior results with similar values performed with this method. Interpretation of those prior results can be made in the context of the updated reference intervals. AST 131(H) 0 - 45 U/L 07/22/2023 6:17 AM [facility] Comment:Reference intervals for this test were updated on 11/16/2022 to more accurately reflect our healthy population. There may be differences in the flagging of prior results with similar values performed with this method. Interpretation of those prior results can be made in the context of the updated reference intervals. ALT 94(H) 0 - 70 U/L 07/22/2023 6:17 AM [facility] Comment:Reference intervals for this test were updated on 11/16/2022 to more accurately reflect our healthy population. There may be differences in the flagging of prior results with similar values performed with this method. Interpretation of those prior results can be made in the context of the updated reference intervals. Protein Total 6.8 6.4 - 8.3 g/dL 07/22/2023 6:17 AM [facility] Albumin 4.2 3.5 - 5.2 g/dL 07/22/2023 6:17 AM [facility] Bilirubin Total 0.9 <=1.2 mg/dL 07/22/2023 6:17 AM S[facility] Blood STRUCTURE OF RIGHT UPPER LIMB / Unknown Venipuncture / Unknown 07/22/2023 5:41 AM SENIOR SOUS CHEF 07/22/2023 5:54 AM SENIOR SOUS CHEF us Ayo Boyce MD LAB - BLOOD ORDERABLES Final Result [facility] [address] Lab (1st floor, no room number) [place] [address], [place] [phone] from Last 3 Months or Most Recently Relevant to Health Maintenance Care Teams Logger Relationship Specialty Start Date End Date Home - [address] [address] PCP - General 07/22/23
--- OUTSIDE RECORDS SUMMARY | 2024-08-19 09:26 | XMS_ITS | Clinical Summary ---
Author Organization [facility] Address [address] [place] [address] Care Team Providers Care Dairy Associate Name Role Phone None Reported, Pcp Primary Care Provider Unavail able Source Comments Patient records contain information from all sites at [facility]. For routine questions regarding patient records, call [phone] during business hours, M-F 8:00 AM - 5:00 PM Central Time. Record requests for emergency care only can be directed to [phone] at any time.[facility] Allergies No known active allergies Medications [...] 113 08/25/2023 8:30 AM CDT Temperature 37.3 C (99.1 F) 08/25/2023 8:00 AM CDT Respiratory Rate 28 08/25/2023 8:30 AM CDT Oxygen Saturation 98% 08/25/2023 8:30 AM CDT Inhaled Oxygen Concentration - - Weight 89.5 kg (197 lb 5 oz) 08/25/2023 5:28 AM CDT Height - - Body Mass Index - - Plan of Treatment Health Maintenance Due Date Last Done Comments HIV Screening 1988 Hepatitis B Screening 1988 Hepatitis C Screening 1988 Lipid (Cholesterol) Screening 1988 Tobacco Cessation counseling 1988 IPV Vaccines (2 of 3 - Adult catch-up series) 05/28/2008 04/30/2008 Pneumococcal vaccine (0-49 years) (2 of 2 - PCV) 09/03/2017 09/03/2016, 04/04/2008 COVID-19 Vaccine (3 - 2023- season) 2024 09/26/2020, 08/28/2020 Influenza Vaccine (#1) 2024 , 02/02/2020, 02/28/2019, Additional history exists Depression Screening (Annual PHQ-2) 06/07/2024 DTaP,Tdap,and Td Vaccines (4 - Td or Tdap) 02/23/2027 02/23/2017, 06/10/2016, 10/07/2015 Hepatitis B Vaccines Completed 02/13/2009, 05/01/2008, 04/30/2008, Additional history exists HPV Vaccines Aged Out No longer eligi ble based on patient's age to complete this topic Insurance [facility] Care Teams Dairy Associate Relationship Specialty Start Date End Date None Reported, Pcp PCP - General Family Medicine 08/25/23
--- NOTE | 2024-08-19 09:43 | CRLHL7_ITS ---
For Patients: As a result of the Century Cures Act, medical imaging exams and procedure reports are released immediately into your electronic medical record. You may view this report before your referring provider. If you have questions, please contact your health care provider. INDICATION: Vomiting blood TECHNIQUE: CT abdomen and pelvis acquired without and with 100 cc Isovue 370 IV contrast, GI bleed protocol. 3D MIPS reconstructed for arterial venous phase. COMPARISON: None. FINDINGS: Lower chest: Unremarkable. Liver: Hepatic steatosis. Smooth hepatic contour. Gallbladder and bile ducts: Unremarkable. No stones or inflammation. No biliary dilatation. Pancreas: Unremarkable. No mass or inflammation. Spleen: Unremarkable. Normal in size. No masses. Adrenal glands: Unremarkable. No nodules. Kidneys: Unremarkable. No suspicious masses, stones, or hydronephrosis. GI tract: Small hiatal hernia. Circumferential thickening of the distal esophagus. No obstruction. Colonic diverticulosis without diverticulitis. Fecalization of distal small bowel contents, which can be seen with slow transit. Normal appendix. Vasculature: Abdominal aorta is normal in caliber. Accessory left hepatic artery originating from the left gastric artery. Small paraesophageal varices. Mesenteric arteries are patent. Lymph nodes: No lymphadenopathy. Peritoneum/Abdominal Wall: Unremarkable. No sign of mass or infiltration. No free air or significant free fluid. Pelvis: Unremarkable. Bones: Moderate degenerative disease with disc height loss T12-L1. IMPRESSION: Circumferential thickening of the distal esophagus is concerning for esophagitis. There are tiny paraesophageal varices, though there is no CT evidence of cirrhosis. No evidence of active arterial bleed. Moderate degenerative disease with disc height loss at T12-L1. Please note that all CT scans at this facility use dose modulation, iterative reconstruction, and/or weight-based dosing when appropriate to reduce radiation dose to as low as reasonably achievable. Dictated by Candida Montenegro MD @ 08/19/2024 10:40:32 AM (Electronically Signed)
--- NOTE | 2024-08-19 09:47 | ED_ITS ---
HPI - General Adult General Date Seen: 08/19/24 <Ruth Chang MD - Last Filed: 08/21/24 04:00> Chief complaint: Nausea/Vomiting <Ruth Chang MD - Last Filed: 08/21/24 04:00> Stated complaint: vomiting blood <Ruth Chang MD - Last Filed: 08/21/24 04:00> Time Seen by Provider: 08/19/24 09:38 <Ruth Chnag MD - Last Filed: 08/21/24 04:00> History of Present Illness HPI narrative: Patient is a 34-year-old male with a history of chronic alcohol abuse, no known cirrhosis or varices, who notes onset of vomiting last night. He has vomited blood multiple times, initially bright red and more recently brown. He has some mild upper abdominal pain. He has not noted diarrhea or bloody or black stools. Denies fevers, cough, difficulty breathing, fainting, or other symptoms at this time. Says he quit drinking about a week ago, says he just decided to stop. Has been drinking heavily prior to that. No prior history of GI bleeding per his report. Denies tobacco use or other substance use. Denies other medical history. <Ruth Chang MD - Last Filed: 08/21/24 04:00> Related Data Home medications: Home Medications ?Medication ?Instructions ?Recorded ?Confirmed dextroamphetamine-amphetamine ER 60 mg PO BID 08/21/23 08/19/24 20 mg 24hr capsule,extend release <Ruth Chang MD - Last Filed: 08/21/24 04:00> Allergies/adverse reactions: Allergies Allergy/AdvReac Type Severity Reaction Status Date / Time No Known Drug Allergies Allergy Verified 08/19/24 10:11 <Ruth Chang MD - Last Filed: 08/21/24 04:00> Review of Systems Status of ROS: Reports: 10 or more systems reviewed and unremarkable except as noted in History and below <Ruth Chang MD - Last Filed: 08/21/24 04:00> [facility] Medical History: Medical History Alcohol use disorder ?F10.90 - Alcohol use, unspecified, uncomplicated (ICD-10) <Ruth Chang MD - Last Filed: 08/21/24 04:00> Family History: Family History Other Cardiovascular disease Diabetes Stroke <Ruth Chang MD - Last Filed: 08/21/24 04:00> Social History: Social History Narrative: patient lives alone in [place]. He is . He has a 10-year-old daughter that he sees on a regular schedule. 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 He is a and gets medical care through the [place]. What is your current living situation?: I presently have a place to live Problems where you live: no known problems Problems where you live details: N/A In the past 12 months, utilities in danger of being shut off: no In past 12 months, lack of transportation kept you from medical appts, meetings, work, or getting things needed for daily living: no In the past 12 mos, have been you worried that your food would run out before you had money to buy more?: never true In the past 12 mos, the food you bought just didn't last and you didn't have money to buy more?: never true Highest level of school completed/degree received: some college, no degree Smoking Status: Never smoker Do you use any of these nicotine containing products: E-Cigarettes How often do you have a drink containing alcohol: 4 or more times a week Alcohol type: hard liquor AUDIT-C Alcohol total score: 4 Non-prescribed substance use: marijuana (any form) Non-prescribed substance use details: ketamine infusions Caffeine: Yes How often does anyone, including family, friends and others, physically hurt you : never How often does anyone, including family, friends and others, insult or talk down to you: never How often does anyone, including family, friends and others, threaten you with harm: never How often does anyone, including family, friends and others, scream or curse at you: never service: Yes <Ruth Chang MD - Last Filed: 08/21/24 04:00> Exam Narrative: Exam Narrative: Vital signs reviewed In general, an alert, moderately ill-appearing man age male. He is somewhat diaphoretic and pale. He is holding an emesis bag with some brownish liquid. Head: Normocephalic, atraumatic. Eyes: Sclera clear. Pupils equal and reactive. ENT: Mucous membranes moist. Neck: Supple without adenopathy. Heart: Tachycardic, regular. No obvious murmur. Lungs: Clear. No increased work of breathing, crackles or wheezes. Abdomen: Mild upper abdominal tenderness without rebound guarding or rigidity. Extremities: Well perfused, pulses intact. No significant edema. Neurologic: Alert, conversant. Speech fluent, face symmetric. Moves all extremities equally. Skin: Diaphoretic, warm. Affect: Flat. <Ruth Chang MD - Last Filed: 08/21/24 04:00> Const: Vital Signs, click to edit/add: Vital Signs - 24 hr 08/19/24 09:32 08/19/24 10:00 08/19/24 10:00 Temperature 96.5 F L Pulse Rate 128 H Pulse Rate [Pulse Oximeter] 128 H Respiratory Rate 18 18 Blood Pressure 118/82 Blood Pressure [Ri ght Upper Arm] 125/80 Pulse Oximetry 96 96 96 Oxygen Delivery Me thod Room Air Room Air 08/19/24 10:30 08/19/24 11:05 08/19/24 11:45 Temperature Pulse Rate 125 H 124 H 115 H Pulse Rate [Pulse Oximeter] Respiratory Rate 16 12 24 Blood Pressure 113/91 H 112/95 H Blood Pressure [Ri ght Upper Arm] Pulse Oximetry 97 100 94 Oxygen Delivery Me thod 08/19/24 12:15 08/19/24 12:31 08/19/24 13:01 Temperature Pulse Rate 108 H 109 H 107 H Pulse Rate [Pulse Oximeter] Respiratory Rate 18 16 18 Blood Pressure 138/75 118/79 Blood Pressure [Ri ght Upper Arm] Pulse Oximetry 94 97 94 Oxygen Delivery Me thod 08/19/24 13:31 08/19/24 14:02 08/19/24 15:00 Temperature 96.5 F L Pulse Rate 106 H 106 H Pulse Rate [Pulse Oximeter] Respiratory Rate 12 19 18 Blood Pressure 105/59 L 125/96 H Blood Pressure [Ri ght Upper Arm] Pulse Oximetry 95 97 94 Oxygen Delivery Me thod Room Air 08/19/24 15:00 08/19/24 16:00 08/19/24 17:00 Temperature 97.2 F L Pulse Rate 118 H 118 H 114 H Pulse Rate [Pulse Oximeter] Respiratory Rate 13 17 20 Blood Pressure 129/74 137/74 Blood Pressure [Ri ght Upper Arm] Pulse Oximetry 99 98 95 Oxygen Delivery Me thod <Ruth Chang MD - Last Filed: 08/21/24 04:00> Vital Signs, click to edit/add: Vital Signs - 24 hr 08/19/24 09:32 08/19/24 10:00 08/19/24 10:00 Temperature 96.5 F L Pulse Rate 128 H Pulse Rate [Pulse Oximeter] 128 H Respiratory Rate 18 18 Blood Pressure 118/82 Blood Pressure [Ri ght Upper Arm] 125/80 Pulse Oximetry 96 96 96 Oxygen Delivery Me thod Room Air Room Air 08/19/24 10:30 08/19/24 11:05 08/19/24 11:45 Temperature Pulse Rate 125 H 124 H 115 H Pulse Rate [Pulse Oximeter] Respiratory Rate 16 12 24 Blood Pressure 113/91 H 112/95 H Blood Pressure [Ri ght Upper Arm] Pulse Oximetry 97 100 94 Oxygen Delivery Me thod 08/19/24 12:15 08/19/24 12:31 08/19/24 13:01 Temperature Pulse Rate 108 H 109 H 107 H Pulse Rate [Pulse Oximeter] Respiratory Rate 18 16 18 Blood Pressure 138/75 118/79 Blood Pressure [Ri ght Upper Arm] Pulse Oximetry 94 97 94 Oxygen Delivery Me thod 08/19/24 13:31 08/19/24 14:02 08/19/24 15:00 Temperature 96.5 F L Pulse Rate 106 H 106 H Pulse Rate [Pulse Oximeter] Respiratory Rate 12 19 18 Blood Pressure 105/59 L 125/96 H Blood Pressure [Ri ght Upper Arm] Pulse Oximetry 95 97 94 Oxygen Delivery Me thod Room Air 08/19/24 15:00 08/19/24 16:00 08/19/24 17:00 Temperature 97.2 F L Pulse Rate 118 H 118 H 114 H Pulse Rate [Pulse Oximeter] Respiratory Rate 13 17 20 Blood Pressure 129/74 137/74 Blood Pressure [Ri ght Upper Arm] Pulse Oximetry 99 98 95 Oxygen Delivery Me thod <Mel Galvez MD - Last Filed: 08/19/24 18:23> Course Course ED Course: Concern would be for variceal bleeding, versus gastritis/peptic ulcer disease. Suspect this is upper GI given bright red blood on onset of vomiting. It does not sound like this is likely to be Dania-Elizalde given the degree of blood that he is describing. Will establish 2 IVs, type and screen, routine labs including coags, CT scan to evaluate for possible varices or other GI bleeding source. Protonix ordered. Low threshold to treat for variceal bleeding if he has recurrent vomiting here. Initial labs notable for a hemoglobin of 12.5, normal platelets, lactate of 6.7, elevated transaminases with an AST of 184 and an ALT of 414, total bili is 1.6, direct is 0.5. His lipase is normal, notably, his blood alcohol is 0.12. Because he was diaphoretic and somewhat ill-appearing on arrival, I did give him a mg of Ativan. I also gave him 5 minutes, have ordered D5 normal saline for maintenance fluids. Magnesium level is pending. CT scan of the abdomen, GI bleed protocol was read by Radiology as showing esophageal thickening concerning for esophagitis, also he had tiny esophageal varices without evidence of obvious cirrhosis. I consulted with GI at [facility], Dr. Richardson. Who recommended treatm ent for varices with octreotide until upper endoscopy is performed. He has had a couple further episodes of vomiting here but no significant coffee grounds and no gross blood. Tachycardia is somewhat improved with heart rate in the 110 range. Blood pressure remains stable. For now, I have ordered octreotide bolus and drip, Rocephin 1 g IV, Zofran, and Protonix. I did talk with Dr. Yarbrough here as well as our hospitalist, we are all in agreement that he would be better served at a larger hospital with gastroenterology availability. He is on a wait list for [facility] right now, [facility] Hemodynamically stable at the moment, if his condition deteriorates, will reassess availability at [facility]. <Ruth Chang MD - Last Filed: 08/21/24 04:00> Consultations Consultation #1: Have given report to Dr. Cantu hospitalist from [facility]; there will be up to a 4 hour bed delay but patient is accepted and off of waitlist. <Mel Galvez MD - Last Filed: 08/19/24 18:23> Time: 18:16 <Mel Galvez MD - Last Filed: 08/19/24 18:23> Vital Signs Vital signs: Initial Vital Signs Temperature 96.5 F L 08/19/24 09:32 Temperature Source Temporal Artery Scan 08/19/24 09:32 Pulse Rate 128 H 08/19/24 09:32 Pulse Rhythm Regular 08/19/24 09:32 Respiratory Rate 18 08/19/24 09:32 Blood Pressure 125/80 08/19/24 09:32 Blood Pressure Mean 95 08/19/24 09:32 Blood Pressure Position Sitting 08/19/24 09:32 Pulse Oximetry 96 08/19/24 09:32 Oxygen Delivery Method Room Air 08/19/24 09:32 Vital Signs Temperature 96.5 F L 08/19/24 09:32 Pulse Rate 128 H 08/19/24 09:32 Respiratory Rate 18 08/19/24 09:32 Blood Pressure 125/80 08/19/24 09:32 Pulse Oximetry 96 08/19/24 09:32 Oxygen Delivery Method Room Air 08/19/24 09:32 Temperature 97.2 F L 08/19/24 19:00 Pulse Rate 114 H 08/19/24 20:01 Respiratory Rate 12 08/19/24 20:01 Blood Pressure 112/67 08/19/24 20:01 Pulse Oximetry 98 08/19/24 20:01 Oxygen Delivery Method Room Air 08/19/24 20:01 <Ruth Chang MD - Last Filed: 08/21/24 04:00> Initial Vital Signs Temperature 96.5 F L 08/19/24 09:32 Temperature Source Temporal Artery Scan 08/19/24 09:32 Pulse Rate 128 H 08/19/24 09:32 Pulse Rhythm Regular 08/19/24 09:32 Respiratory Rate 18 08/19/24 09:32 Blood Pressure 125/80 08/19/24 09:32 Blood Pressure Mean 95 08/19/24 09:32 Blood Pressure Position Sitting 08/19/24 09:32 Pulse Oximetry 96 08/19/24 09:32 Oxygen Delivery Method Room Air 08/19/24 09:32 Vital Signs Temperature 96.5 F L 08/19/24 09:32 Pulse Rate 128 H 08/19/24 09:32 Respiratory Rate 18 08/19/24 09:32 Blood Pressure 125/80 08/19/24 09:32 Pulse Oximetry 96 08/19/24 09:32 Oxygen Delivery Method Room Air 08/19/24 09:32 Temperature 97.2 F L 08/19/24 19:00 Pulse Rate 114 H 08/19/24 20:01 Respiratory Rate 12 08/19/24 20:01 Blood Pressure 112/67 08/19/24 20:01 Pulse Oximetry 98 08/19/24 20:01 Oxygen Delivery Method Room Air 08/19/24 20:01 <Mel Galvez MD - Last Filed: 08/19/24 18:23> Medications Administered Medications: Discontinued Medications Generic Name Dose Route Start Last Admin Trade Name Freq PRN Reason Stop Dose Admin Sodium Chloride 1,000 mls @ 1,000 mls/hr 08/19/24 09:45 08/19/24 10:45 0.9 % Sodium Chloride 1000 Ml IV 08/19/24 10:44 Infused .Q1H SANTO Infusion Thiamine HCl 250 mg/ Sodium 102.5 mls @ 102.5 mls/hr 08/19/24 10:22 08/19/24 11:43 Chloride IVPB 08/19/24 10:23 Infused ONCE ONE Infusion Dextrose/Sodium Chloride 1,000 mls @ 125 mls/hr 08/19/24 10:25 08/19/24 19:19 5 % Dextrose/0.9% Sod Chloride IV 125 mls/hr .Q8H SANTO Administration Octreotide Acetate 500 mcg/ 102.5 mls @ 10 mls/hr 08/19/24 10:58 08/19/24 19:25 Sodium Chloride IV 08/19/24 21:12 Infused ONCE ONE Infusion Ceftriaxone Sodium 1 gm/ 100 mls @ 200 mls/hr 08/19/24 10:58 08/19/24 12:00 Sodium Chloride IVPB 08/19/24 10:59 Infused ONCE ONE Infusion Octreotide Acetate 500 mcg/ 102.5 mls @ 10 mls/hr 08/19/24 19:23 08/19/24 19:25 Sodium Chloride IV 08/20/24 05:37 10 mls/hr ONCE ONE Administration Lorazepam 1 mg 08/19/24 10:44 08/19/24 11:27 Lorazepam 2 Mg/Ml Inj IVP 08/19/24 10:45 1 mg ONCE ONE Administration Lorazepam 1 mg 08/19/24 13:42 08/19/24 17:25 Lorazepam 2 Mg/Ml Inj IVP 0.5 mg ONCE PRN Administration Alcohol Withdrawal Octreotide Acetate 50 mcg 08/19/24 10:58 08/19/24 11:26 Octreotide Acetate 100 Mcg/Ml Inj IV 08/19/24 10:59 50 mcg ONCE ONE Administration Ondansetron HCl 4 mg 08/19/24 10:46 08/19/24 10:50 Ondansetron 2 Mg/Ml Inj IVP 08/19/24 10:47 4 mg ONCE ONE Administration Pantoprazole Sodium 40 mg 08/19/24 09:43 08/19/24 09:56 Pantoprazole Sodium 40 Mg Inj IVP 08/19/24 09:44 40 mg ONCE ONE Administration <Ruth Chang MD - Last Filed: 08/21/24 04:00> Discontinued Medications Generic Name Dose Route Start Last Admin Trade Name Freq PRN Reason Stop Dose Admin Sodium Chloride 1,000 mls @ 1,000 mls/hr 08/19/24 09:45 08/19/24 10:45 0.9 % Sodium Chloride 1000 Ml IV 08/19/24 10:44 Infused .Q1H SANTO Infusion Thiamine HCl 250 mg/ Sodium 102.5 mls @ 102.5 mls/hr 08/19/24 10:22 08/19/24 11:43 Chloride IVPB 08/19/24 10:23 Infused ONCE ONE Infusion Dextrose/Sodium Chloride 1,000 mls @ 125 mls/hr 08/19/24 10:25 08/19/24 19:19 5 % Dextrose/0.9% Sod Chloride IV 125 mls/hr .Q8H SANTO Administration Octreotide Acetate 500 mcg/ 102.5 mls @ 10 mls/hr 08/19/24 10:58 08/19/24 19:25 Sodium Chloride IV 08/19/24 21:12 Infused ONCE ONE Infusion Ceftriaxone Sodium 1 gm/ 100 mls @ 200 mls/hr 08/19/24 10:58 08/19/24 12:00 Sodium Chloride IVPB 08/19/24 10:59 Infused ONCE ONE Infusion Octreotide Acetate 500 mcg/ 102.5 mls @ 10 mls/hr 08/19/24 19:23 08/19/24 19:25 Sodium Chloride IV 08/20/24 05:37 10 mls/hr ONCE ONE Administration Lorazepam 1 mg 08/19/24 10:44 08/19/24 11:27 Lorazepam 2 Mg/Ml Inj IVP 08/19/24 10:45 1 mg ONCE ONE Administration Lorazepam 1 mg 08/19/24 13:42 08/19/24 17:25 Lorazepam 2 Mg/Ml Inj IVP 0.5 mg ONCE PRN Administration Alcohol Withdrawal Octreotide Acetate 50 mcg 08/19/24 10:58 08/19/24 11:26 Octreotide Acetate 100 Mcg/Ml Inj IV 08/19/24 10:59 50 mcg ONCE ONE Administration Ondansetron HCl 4 mg 08/19/24 10:46 08/19/24 10:50 Ondansetron 2 Mg/Ml Inj IVP 08/19/24 10:47 4 mg ONCE ONE Administration Pantoprazole Sodium 40 mg 08/19/24 09:43 08/19/24 09:56 Pantoprazole Sodium 40 Mg Inj IVP 08/19/24 09:44 40 mg ONCE ONE Administration <Mel Galvez MD - Last Filed: 08/19/24 18:23> Medical Decision Making Lab Data Lab results reviewed: Yes I reviewed the patient's lab results <Ruth Chang MD - Last Filed: 08/21/24 04:00> Labs: Lab Results 08/19/24 08/19/24 08/19/24 Range/Units 09:45 09:48 12:04 WBC 10.33 9.65 (4.50-11.00) K/uL RBC 4.09 L 3.86 L (4.30-5.90) m/uL Hgb 12.5 L 11.8 L (13.5-17.5) gm/dL Hct 35.0 L 33.3 L (37.0-53.0) % MCV 86 86 (80-100) fL MCH 31 31 (26-34) pg MCHC 36 35 (32-36) gm/dL RDW Coeff of [place] 12.2 12.2 (11.5-15.5) % Plt Count 195 160 (140-440) K/uL Neut % (Auto) 66.0 78.9 H (42.0-72.0) % Lymph % (Auto) 28.5 16.6 L (20-44) % [place] % (Auto) 4.7 4.0 (0.0-11.0) % Eos % (Auto) 0.2 0.0 (0.0-7.0) % Baso % (Auto) 0.3 0.2 (0.0-3.0) % Neut # (Auto) 6.82 7.60 H (1.7-7.0) K/uL Lymph # (Auto) 2.94 H 1.60 (0.90-2.90) K/uL [place] # (Auto) 0.50 0.40 (0.00-0.90) K/UL Eos # (Auto) 0.02 0.00 (0.00-0.50) K/uL Baso # (Auto) 0.03 0.02 (0.00-0.30) K/uL Abs Immat Gran (auto) 0.03 0.03 (0.00-0.30) K/uL Imm/Tot Granulo (auto) 0.3 0.3 % INR 1.06 (0.91-1.10) APTT 25 (23-33) Seconds VBG pH (7.32-7.43) VBG pCO2 (40-50) mmHG VBG pO2 (25-47) mmHG VBG HCO3 (21-28) mmol/L Sodium 131 L (135-149) mmol/L Potassium 3.8 (3.6-5.1) mmol/L Chloride 92 L (96-114) mmol/L Carbon Dioxide 16 L (20-32) mmol/L Anion Gap 23 H (7-15) mEq/L BUN 45 H (5-24) mg/dL Creatinine 0.9 (0.5-1.5) mg/dL Estimated Creat Clear 124.54 Estimated GFR 114 ml/min Glucose 182 H (60-115) mg/dL Lactate 6.3 H* 4.9 H* (0.5-1.9) mmol/L Calcium 7.9 L (8.4-10.6) mg/dL Magnesium 1.8 (1.5-2.6) mg/dL Total Bilirubin Cancelled 1.6 H Direct Bilirubin Cancelled 0.5 AST Cancelled 184 H ALT Cancelled 414 H Alkaline Phosphatase Cancelled 56 Total Protein Cancelled 6.5 Albumin Cancelled 4.2 Lipase Cancelled 204 Ethyl Alcohol 0.12 H (0.01-0.03) % Blood Type O Positive Antibody Screen NEGATIVE 08/19/24 Range/Units 18:00 WBC (4.50-11.00) K/uL RBC (4.30-5.90) m/uL Hgb 10.7 L (13.5-17.5) gm/dL Hct (37.0-53.0) % MCV (80-100) fL MCH (26-34) pg MCHC (32-36) gm/dL RDW Coeff of [place] (11.5-15.5) % Plt Count (140-440) K/uL Neut % (Auto) (42.0-72.0) % Lymph % (Auto) (20-44) % [place] % (Auto) (0.0-11.0) % Eos % (Auto) (0.0-7.0) % Baso % (Auto) (0.0-3.0) % Neut # (Auto) (1.7-7.0) K/uL Lymph # (Auto) (0.90-2.90) K/uL [place] # (Auto) (0.00-0.90) K/UL Eos # (Auto) (0.00-0.50) K/uL Baso # (Auto) (0.00-0.30) K/uL Abs Immat Gran (auto) (0.00-0.30) K/uL Imm/Tot Granulo (auto) % INR (0.91-1.10) APTT (23-33) Seconds VBG pH 7.477 H (7.32-7.43) VBG pCO2 38 L (40-50) mmHG VBG pO2 56.3 H (25-47) mmHG VBG HCO3 28 (21-28) mmol/L Sodium (135-149) mmol/L Potassium (3.6-5.1) mmol/L Chloride (96-114) mmol/L Carbon Dioxide (20-32) mmol/L Anion Gap (7-15) mEq/L BUN (5-24) mg/dL Creatinine (0.5-1.5) mg/dL Estimated Creat Clear Estimated GFR ml/min Glucose (60-115) mg/dL Lactate 1.4 (0.5-1.9) mmol/L Calcium (8.4-10.6) mg/dL Magnesium (1.5-2.6) mg/dL Total Bilirubin Direct Bilirubin AST ALT Alkaline Phosphatase Total Protein Albumin Lipase Ethyl Alcohol (0.01-0.03) % Blood Type Antibody Screen <Ruth Chang MD - Last Filed: 08/21/24 04:00> Lab Results 08/19/24 08/19/24 08/19/24 Range/Units 09:45 09:48 12:04 WBC 10.33 9.65 (4.50-11.00) K/uL RBC 4.09 L 3.86 L (4.30-5.90) m/uL Hgb 12.5 L 11.8 L (13.5-17.5) gm/dL Hct 35.0 L 33.3 L (37.0-53.0) % MCV 86 86 (80-100) fL MCH 31 31 (26-34) pg MCHC 36 35 (32-36) gm/dL RDW Coeff of [place] 12.2 12.2 (11.5-15.5) % Plt Count 195 160 (140-440) K/uL Neut % (Auto) 66.0 78.9 H (42.0-72.0) % Lymph % (Auto) 28.5 16.6 L (20-44) % [place] % (Auto) 4.7 4.0 (0.0-11.0) % Eos % (Auto) 0.2 0.0 (0.0-7.0) % Baso % (Auto) 0.3 0.2 (0.0-3.0) % Neut # (Auto) 6.82 7.60 H (1.7-7.0) K/uL Lymph # (Auto) 2.94 H 1.60 (0.90-2.90) K/uL [place] # (Auto) 0.50 0.40 (0.00-0.90) K/UL Eos # (Auto) 0.02 0.00 (0.00-0.50) K/uL Baso # (Auto) 0.03 0.02 (0.00-0.30) K/uL Abs Immat Gran (auto) 0.03 0.03 (0.00-0.30) K/uL Imm/Tot Granulo (auto) 0.3 0.3 % INR 1.06 (0.91-1.10) APTT 25 (23-33) Seconds VBG pH (7.32-7.43) VBG pCO2 (40-50) mmHG VBG pO2 (25-47) mmHG VBG HCO3 (21-28) mmol/L Sodium 131 L (135-149) mmol/L Potassium 3.8 (3.6-5.1) mmol/L Chloride 92 L (96-114) mmol/L Carbon Dioxide 16 L (20-32) mmol/L Anion Gap 23 H (7-15) mEq/L BUN 45 H (5-24) mg/dL Creatinine 0.9 (0.5-1.5) mg/dL Estimated Creat Clear 124.54 Estimated GFR 114 ml/min Glucose 182 H (60-115) mg/dL Lactate 6.3 H* 4.9 H* (0.5-1.9) mmol/L Calcium 7.9 L (8.4-10.6) mg/dL Magnesium 1.8 (1.5-2.6) mg/dL Total Bilirubin Cancelled 1.6 H Direct Bilirubin Cancelled 0.5 AST Cancelled 184 H ALT Cancelled 414 H Alkaline Phosphatase Cancelled 56 Total Protein Cancelled 6.5 Albumin Cancelled 4.2 Lipase Cancelled 204 Ethyl Alcohol 0.12 H (0.01-0.03) % Blood Type O Positive Antibody Screen NEGATIVE 08/19/24 Range/Units 18:00 WBC (4.50-11.00) K/uL RBC (4.30-5.90) m/uL Hgb 10.7 L (13.5-17.5) gm/dL Hct (37.0-53.0) % MCV (80-100) fL MCH (26-34) pg MCHC (32-36) gm/dL RDW Coeff of [place] (11.5-15.5) % Plt Count (140-440) K/uL Neut % (Auto) (42.0-72.0) % Lymph % (Auto) (20-44) % [place] % (Auto) (0.0-11.0) % Eos % (Auto) (0.0-7.0) % Baso % (Auto) (0.0-3.0) % Neut # (Auto) (1.7-7.0) K/uL Lymph # (Auto) (0.90-2.90) K/uL [place] # (Auto) (0.00-0.90) K/UL Eos # (Auto) (0.00-0.50) K/uL Baso # (Auto) (0.00-0.30) K/uL Abs Immat Gran (auto) (0.00-0.30) K/uL Imm/Tot Granulo (auto) % INR (0.91-1.10) APTT (23-33) Seconds VBG pH 7.477 H (7.32-7.43) VBG pCO2 38 L (40-50) mmHG VBG pO2 56.3 H (25-47) mmHG VBG HCO3 28 (21-28) mmol/L Sodium (135-149) mmol/L Potassium (3.6-5.1) mmol/L Chloride (96-114) mmol/L Carbon Dioxide (20-32) mmol/L Anion Gap (7-15) mEq/L BUN (5-24) mg/dL Creatinine (0.5-1.5) mg/dL Estimated Creat Clear Estimated GFR ml/min Glucose (60-115) mg/dL Lactate 1.4 (0.5-1.9) mmol/L Calcium (8.4-10.6) mg/dL Magnesium (1.5-2.6) mg/dL Total Bilirubin Direct Bilirubin AST ALT Alkaline Phosphatase Total Protein Albumin Lipase Ethyl Alcohol (0.01-0.03) % Blood Type Antibody Screen <Mel Galvez MD - Last Filed: 08/19/24 18:23> Imaging Data CT scan - abdomen: Attestation: I have reviewed the pertinent imaging results. <Ruth Chang MD - Last Filed: 08/21/24 04:00> Radiologist's impression: Patient: Balaji Mckeon MR#: [id number] : 1990 Acct:[id number] Loc: ED Service Date: 08/19/[address]: Ordering Physician: Ruth Chang M.D. Date of Service: 08/19/24 Procedure(s): CT angio abd pel GI Bleed Accession Number(s): [id number] cc: Ruth Chang M.D.; Provider,Not a Local~ For Patients: As a result of the Cures Act, medical imaging exams and procedure reports are released immediately into your electronic medical record. You may view this report before your referring provider. If you have questions, please contact your health care provider. INDICATION: Vomiting blood TECHNIQUE: CT abdomen and pelvis acquired without and with 100 cc Isovue 370 IV contrast, GI bleed protocol. 3D MIPS reconstructed for arterial venous phase. COMPARISON: None. FINDINGS: Lower chest: Unremarkable. Liver: Hepatic steatosis. Smooth hepatic contour. Gallbladder and bile ducts: Unremarkable. No stones or inflammation. No biliary dilatation. Pancreas: Unremarkable. No mass or inflammation. Spleen: Unremarkable. Normal in size. No masses. Adrenal glands: Unremarkable. No nodules. Kidneys: Unremarkable. No suspicious masses, stones, or hydronephrosis. GI tract: Small hiatal hernia. Circumferential thickening of the distal esophagus. No obstruction. Colonic diverticulosis without diverticulitis. Fecalization of distal small bowel contents, which can be seen with slow transit. Normal appendix. Vasculature: Abdominal aorta is normal in caliber. Accessory left hepatic artery originating from the left gastric artery. Small paraesophageal varices. Mesenteric arteries are patent. Lymph nodes: No lymphadenopathy. Peritoneum/Abdominal Wall: Unremarkable. No sign of mass or infiltration. No free air or significant free fluid. Pelvis: Unremarkable. Bones: Moderate degenerative disease with disc height loss T12-L1. IMPRESSION: Circumferential thickening of the distal esophagus is concerning for esophagitis. There are tiny paraesophageal varices, though there is no CT evidence of cirrhosis. No evidence of active arterial bleed. Moderate degenerative disease with disc height loss at T12-L1. Please note that all CT scans at this facility use dose modulation, iterative reconstruction, and/or weight-based dosing when appropriate to reduce radiation dose to as low as reasonably achievable. Dictated by Candida Montenegro MD @ 08/19/2024 10:40:32 AM <Ruth Chang MD - Last Filed: 08/21/24 04:00> Critical Care Time Critical Care Time Total Critical Care Time in Minutes: 60 <Ruth Chang MD - Last Filed: 08/21/24 04:00> Discharge Plan Discharge Patient Disposition: [facility] <Ruth Chang MD - Last Filed: 08/21/24 04:00> Prescriptions: No Action dextroamphetamine-amphetamine 20 mg capsule,extended release 24hr 60 mg PO BID <Ruth Chang MD - Last Filed: 08/21/24 04:00> Stand Alone Forms: [facility] Info Instructions <Ruth Chang MD - Last Filed: 08/21/24 04:00>
[2024-08-19] MEDS: 0.9 % SODIUM CHLORIDE 1000 ml 1,000 ML IV (09:50)
[2024-08-19] MEDS: PANTOPRAZOLE SODIUM 40 MG INJ IVP (09:56)
[2024-08-19 10:19] LABS: INR 1.06 (0.91-1.10); Partial Thromboplastin Time* 25 Seconds (23-33); Prothrombin Time 14.7 Seconds
[2024-08-19 10:26] LABS: Basophils Absolute Auto 0.03 K/uL (0.00-0.30); Basophils Percent Auto 0.3 % (0.0-3.0); Eosinophils Absolute Auto 0.02 K/uL (0.00-0.50); Eosinophils Percent Auto 0.2 % (0.0-7.0); Hemoglobin* 12.5 gm/dL (13.5-17.5); Immature Granulocytes Abs Auto 0.03 K/uL (0.00-0.30); Immature Granulocytes Pct Auto 0.3 %; Lymphocytes Absolute Auto 2.94 K/uL (0.90-2.90); Lymphocytes Percent Auto 28.5 % (20-44); Mean Corpuscular HGB Conc 36 gm/dL (32-36); Mean Corpuscular Hemoglobin 31 pg (26-34); Mean Corpuscular Volume 86 fL (80-100); Monocytes Percent Auto 4.7 % (0.0-11.0); Neutrophils Absolute Auto 6.82 K/uL (1.7-7.0); Platelet Count* 195 K/uL (140-440); RDW Coefficient of Variation % 12.2 % (11.5-15.5); Red Blood Count 4.09 m/uL (4.30-5.90); White Blood Count* 10.33 K/uL (4.50-11.00)
--- OUTSIDE RECORDS SUMMARY | 2024-08-19 10:32 | XMS_ITS | Encounter Summary ---
Author Name [facility] [place] Organization [facility] [place] Address [address] [place] [address] Care Team Providers Care Stoper Name Role Phone RAGINI BLANK Primary Care [...] section includes the information on record at [place] for the Encounter. Date/Time Encounter Type Encounter Description Reason Pro vider Source Jul 13, 2024 04:13 PM Outpatient Encounter EVENT (HISTORICAL) IHE Encounter Template Text not used by [place] Plan of Treatment: Future Appointments (+ 6 months) and Future Tests (+/- 45 days) The Plan of Treatment section includes future care activities for the patient from all [place] treatmentfacilities. This section includes future appointments and future orders which are active, pending or scheduled. Future Appointments This section includes appointments that were scheduled to occur 6 months from the date of the Encounter, up to a maximum of 20 appointments. The data comes from all [place] treatment facilities. Appointment Date/Time Appointment Type Appointme nt Facility Name Jul 17, 2024 11:00 AM AMBULATORY - NONE [place] [facility] Jul 18, 2024 07:01 AM [facility] Jul 18, 2024 10:30 AM [facility] - MEDICINE [facility] Active, Pending, and Scheduled Orders This section includes a listing of several types of active, pending, and scheduled orders, including clinic medications orders, diagnostic test orders, procedure orders and consult orders; where the start date of the order is 45 days before the date of the Encounter or 45 days after the date of theEncounter. The data comes from all [facility] facilities. Test Date/Time Test Type Test Details Facility Name Jul 13, 2024 04:22 PM Consult Order COMMUNITY CARE-TREATMENT RESISTANT DEPRESSION Cons Test Center Administrator's Choice [facility] Lab Results: +/- 30 days of the encounter This section includes the Chemistry and Hematology Lab Results on record with [place] for the patient. Radiology Reports and Pathology Reports are provided separately, in subsequent sections. Lab Results This section contains the Chemistry/Hematology Results that were resulted 30 days before or 30 daysafter the date of the Encounter. Date/Time Source Result Type Result - Unit Interpretation Reference Range Comment Jul 18, 2024 10:46 AM [facility] HEMOGLOBIN A1C Specimen Type: BLOOD Comment: Values obtained from A1C measurements can vary. For typical A1C assays, a reported value of 7.0 could actually be between 6.7 and 7.3 if measured by a reference method. A reported value of 9.0 could actually be between 8.7 and 9.3. Ref: http://www.ngs p.org/CAPdata. asp Ordering Provider: RAGINI BLANK Report Released Date/Time: Jul 18, 2024 10:39 AM Reporting Lab: [facility] [id number] Performing Lab: [facility] [id number] HEMOGLOBIN A1C 5.5 4.0-6.0 Jul 18, 2024 10:46 AM [facility] CALCIUM Specimen Type: PLASMA No comment entered. Ordering Provider: RAGINI BLANK Report Released Date/Time: Jul 18, 2024 10:39 AM Reporting Lab: [facility] [id number] Performing Lab: [facility] [phone] CALCIUM 9.5 mg/dL 8.4-10.2 Jul 18, 2024 10:46 AM [facility] TSH W/REFLEX TO FREE T4 Specimen Type: PLASMA No comment entered. Ordering Provider: RAGINI BLANK Report Released Date/Time: Jul 18, 2024 10:39 AM Reporting Lab: [facility] [id number] Performing Lab: [facility] [id number] TSH 1.88 u[IU]/mL 0.35-4.94 Jul 18, 2024 10:46 AM [facility] CBC Specimen Type: BLOOD No comment entered. Ordering Provider: RAGINI BLANK Report Released Date/Time: Jul 18, 2024 10:39 AM Reporting Lab: [facility] [id number] Performing Lab: [facility] [id number] WBC 6.2 4.0-11.0 RBC 5.01 4.60-6.20 HGB 15.2 g/dL 13.5-17.9 HCT 44.8 41.0-54.0 MCV 89.4 fL 80.0-100.0 MCH 30.3 pg 27.0-33.0 MCHC 33.9 g/dL 32.0-37.5 PLT 234 150-400 MPV 10.1 fL 9.1-13.0 RDW 12.4 11.5-14.5 Jul 18, 2024 10:46 AM [facility] COMPREHENSIVE METABOLIC PANEL+MG Specimen Type: PLASMA No comment entered. Ordering Provider: RAGINI BLANK Report Released Date/Time: Jul 18, 2024 10:39 AM Reporting Lab: [facility] [id number] Performing Lab: [facility] [id number] CREATININE 0.9 mg/dL 0.7-1.2 UREA NITROGEN 11 [...] and tobacco- related health factors from the [place] facility where the Encounter took place. Current Smoking Status This section includes the most current smoking, or tobacco-related health factor, from the [place] facility where the Encounter took place. Date/Time Current Smoking Status Comment Facil ity May 17, 2024 02:30 PM VA-TOBACCO USE EVERY DAY CIGARET [place] Tobacco Use History This section includes a history of the smoking, or tobacco-related health factors, that were collected on or before the date of the Encounter. The data comes from the [place] facility where the Encounter took place. Date/Time Smoking Status/Tobacco Use Comment F acility May 17, 2024 02:30 PM VA-TOBACCO USE EVERY DAY CIGARET [place] November 01, 2018 12:58 PM VA-TOBACCO DOESNT USE WI 30 MIN WAKEUP [facility] November 01, 2018 12:58 PM VA-TOBACCO USE 5 TO 15 YEARS [facility] November 01, 2018 12:58 PM VA-TOBACCO USE ADVICE [facility] November 01, 2018 12:58 PM VA-TOBACCO USE CREDIT ASSISTANT YES [facility] November 01, 2018 12:58 PM VA-TOBACCO USE MED YES [facility] November 01, 2018 12:58 PM VA-TOBACCO USER EVERY DAY [facility] Aug 05, 2017 02:28 PM CURRENT TOBACCO USER [facility] Jun 10, 2016 02:39 PM INPT TOBACCO COUNSELING [facility] Jun 10, 2016 02:39 PM INPT TOBACCO USER [place] [facility] Jun 10, 2016 08:23 AM CURRENT TOBACCO USER [facility] Advance Directives: All historical and current Section Date Range: From patient's date of to the date document was created. This section includes ALL of a patient's completed or amended [place] Advance and Rescinded Directives. The entries below indicate that a directive exists for the patient, but an actual copy is not included with this document. The data comes from all [place] facilities. Date Advance Directives Provider Source Mar 31, 2023 ADVANCE DIRECTIVE DISCUSSION APOORVA KHANNA [facility] Nov 30, 2022 ADVANCE DIRECTIVE DISCUSSION ALEXANDER CONNOR [facility] Jun 17, 2016 ADVANCE DIRECTIVE DISCUSSION CAROLIN FIGUEROA AE [facility] Jun 10, 2016 CLINICAL WARNING NAIDA BRADSHAW [facility] October 07, 2015 ADVANCE DIRECTIVE DISCUSSION Lemuel URRUTIA [facility]
--- OUTSIDE RECORDS SUMMARY | 2024-08-19 10:33 | XMS_ITS | Encounter Summary ---
Author Name [facility] [place] [place] Organization [place] Address [address] [place] [address] Care Team Providers Care Ecological Economist Name Role Phone ABHAY RAGINI Primary Care Provider Unavailabl e Insurance Providers: [...] section includes the information on record at [place] for the Encounter. Date/Time Encounter Type Encounter Description Reason Provider Source Jul 20, 2024 02:46 PM Outpatient Encounter [facility] CHARLEE KINNEY Encounter Template Text not used by [place] Plan of Treatment: Future Appointments (+ 6 months) and Future Tests (+/- 45 days) The Plan of Treatment section includes future care activities for the patient from all [place] treatmentfacilities. This section includes future appointments and future orders which are active, pending or scheduled. Active, Pending, and Scheduled Orders This section includes a listing of several types of active, pending, and scheduled orders, including clinic medications orders, diagnostic test orders, procedure orders and consult orders; where the start date of the order is 45 days before the date of the Encounter or 45 days after the date of theEncounter. The data comes from all [place] treatment facilities. Test Date/Time Test Type Test Details Facility Name Jul 13, 2024 04:22 PM Consult Order COMMUNITY CARE-TREATMENT RESISTANT DEPRESSION Cons Devops Developer's Choice [facility] Lab Results: +/- 30 days of the encounter This section includes the Chemistry and Hematology Lab Results on record with [place] for the patient. Radiology Reports and Pathology Reports are provided separately, in subsequent sections. Lab Results This section contains the Chemistry/Hematology Results that were resulted 30 days before or 30 daysafter the date of the Encounter. Date/Time Source Result Type Result - Unit Interpretation Reference Range Comment Jul 18, 2024 10:46 AM [facility] HEMOGLOBIN A1C Specimen Type: BLOOD Comment: [...] Jul 18, 2024 10:39 AM Reporting Lab: [facility] [id number] Performing Lab: [facility] [address] HEMOGLOBIN A1C 5.5 4.0-6.0 Jul 18, 2024 10:46 AM [facility] CALCIUM Specimen Type: PLASMA No comment entered. Ordering Provider: RAGINI BLANK Report Released Date/Time: Jul 18, 2024 10:39 AM Reporting Lab: [facility] [id number] Performing Lab: [facility] [address] CALCIUM 9.5 mg/dL 8.4-10.2 Jul 18, 2024 10:46 AM [facility] TSH W/REFLEX TO FREE T4 Specimen Type: PLASMA No comment entered. Ordering Provider: RAGINI BLANK Report Released Date/Time: Jul 18, 2024 10:39 AM Reporting Lab: [facility] [id number] Performing Lab: [facility] [address] TSH 1.88 u[IU]/mL 0.35-4.94 Jul 18, 2024 10:46 AM [facility] CBC Specimen Type: BLOOD No comment entered. Ordering Provider: RAGINI BLANK Report Released Date/Time: Jul 18, 2024 10:39 AM Reporting Lab: [facility] [id number] Performing Lab: [facility] [address] WBC 6.2 4.0-11.0 RBC 5.01 4.60-6.20 HGB 15.2 g/dL 13.5-17.9 HCT 44.8 41.0-54.0 MCV 89.4 fL 80.0-100.0 MCH 30.3 pg 27.0-33.0 MCHC 33.9 g/dL 32.0-37.5 PLT 234 150-400 MPV 10.1 fL 9.1-13.0 RDW 12.4 11.5-14.5 Jul 18, 2024 10:46 AM [facility] COMPREHENSIVE METABOLIC PANEL+MG Specimen Type: PLASMA No comment entered. Ordering Provider: RAGINI BLANK Report Released Date/Time: Jul 18, 2024 10:39 AM Reporting Lab: [facility] [address] Performing Lab: [facility] [address] CREATININE 0.9 mg/dL 0.7-1.2 UREA NITROGEN 11 [...] and tobacco- related health factors from the [place] facility where the Encounter took place. Current Smoking Status This section includes the most current smoking, or tobacco-related health factor, from the [place] facility where the Encounter took place. Date/Time Current Smoking Status Comment [place] ity May 17, 2024 02:30 PM VA-TOBACCO USE EVERY DAY CIGARET [facility] Tobacco Use History This section includes a history of the smoking, or tobacco-related health factors, that were collected on or before the date of the Encounter. The data comes from the [place] facility where the Encounter took place. Date/Time Smoking Status/Tobacco Use Comment F acility May 17, 2024 02:30 PM VA-TOBACCO USE EVERY DAY CIGARET [facility] November 01, 2018 12:58 PM VA-TOBACCO DOESNT USE WI 30 MIN WAKEUP [facility] November 01, 2018 12:58 PM VA-TOBACCO USE 5 TO 15 YEARS [facility] November 01, 2018 12:58 PM VA-TOBACCO USE ADVICE [facility] November 01, 2018 12:58 PM VA-TOBACCO USE DIRECTOR OF HEMOPHILIA YES [facility] November 01, 2018 12:58 PM VA-TOBACCO USE MED YES [facility] November 01, 2018 12:58 PM VA-TOBACCO USER EVERY DAY [facility] Aug 05, 2017 02:28 PM CURRENT TOBACCO USER [facility] Jun 10, 2016 02:39 PM INPT TOBACCO COUNSELING [facility] Jun 10, 2016 02:39 PM INPT [facility]ACCO [facility]ER [facility] Jun 10, 2016 08:23 AM CURRENT TOBACCO USER [facility] Advance Directives: All historical and current Section Date Range: From patient's date of to the date document was created. This section includes ALL of a patient's completed or amended [place] Advance and Rescinded Directives. The entries below indicate that a directive exists for the patient, but an actual copy is not included with this document. The data comes from all [facility]. Date Advance Directives Provider Source Mar 31, 2023 ADVANCE DIRECTIVE DISCUSSION APOORVA KHANNA [facility] Nov 30, 2022 ADVANCE DIRECTIVE DISCUSSION ALEXANDER CONNOR [facility] Jun 17, 2016 ADVANCE DIRECTIVE DISCUSSION CAROLIN FIGUEROA AE [facility] Jun 10, 2016 CLINICAL WARNING NAIDA BRADSHAW [facility] October 07, 2015 ADVANCE DIRECTIVE DISCUSSION Lemuel [facility] Encounter Notes: All associated encounter notes This section contains the clinical notes associated to the Encounter. Date/Time Encounter Note(s) Provider Source Jul 20, 2024 02:46 PM SUICIDE PREVENTION NOTE: LOCAL TITLE: REACH VET COORDINATOR NOTE STANDARD TITLE: SUICIDE PREVENTION NOTE DATE OF NOTE: JUL 20, 2024@14:46 ENTRY DATE: JUL 20, 2024@14:47:10 AUTHOR: CHARLEE KINNEY EXP COSIGNER: URGENCY: STATUS: COMPLETED I am the [facility] REACH VET Coordinator and have been informed that SHAQUILLE MCKEON is a RECURRING [place] who might benefit from enhanced treatment. I have informed this Superior's REACH VET provider, Dr. Moon, so that they can determine whether any additional steps (e.g., care enhancements, outreach, or other services) are clinically indicated at this time. REACH T Recovery Engagement & Coordinator for Health - Veterans Enhanced Treatment As documented in REACHVET note from March 2024, Shaquille Mckeon was originally identified with REACHYouNoodleT program. They are again on the monthly program list. Most recent Reach Vet Provider note 05/22/24. CPRS has been reviewed for information. Shaquille Mckeon is engaged with outpt MH providers from [facility]pro[facility]. Superior met with MAURICIO herrera since last review, lastly on 07/14/24. He attended a primary care appt on 07/18/24 as well as Peer Support group on 07/13/24. Superior continues to get community MH care-Ketamine treatments. has future appts scheduled. [place] is referred to most recent progress/contact note for current Superior and care plan information. Should the 's outpatient MH providers have additional information for the REACHVET care plan review, they are invited to submit the information via a REACHVET PROVIDER NOTE. Outpt MH providers signed here for their care coordination/information. /samuel/ HASEEB HOGAN, [facility] Suicide Prevention Program Manager Chinese Signed: 07/20/2024 14:54 Receipt Acknowledged By: 07/20/2024 15:19 /samuel/ AUBREY MOON MD STAFF PSYCHIATRIST CHARLEE KINNEY [facility]
--- OUTSIDE RECORDS SUMMARY | 2024-08-19 10:33 | XMS_ITS | Clinical Summary ---
Author Organization [facility] Address [address], [place] [address] Care Team Providers Care Live Truck Operator Name Role Phone Feliciano Dexter MD Primary Care Provider [phone] Source Comments You are receiving this document as you are listed as the primary care provider,follow-up provider, or the patient has been referred to you for consultation.This is in compliance with the Medicare and[facility] EHR Incentive Program,which states Providers who transition their patient to another setting of careor provider of care or refers their patient to another provider of care shouldprovide summary care record for each transition of care or referral. 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 Not on file Not on file Last Filed Vital Signs Vital Sign Reading Time Taken Comments Blood Pressure 118/77 10/06/2021 12:21 PM CDT Pulse 75 10/06/2021 12:21 PM CDT Temperature 36.8 C (98.2 F) 07/08/2021 8:30 AM TRAINING MANAGER Patient Reported Respiratory Rate 18 10/12/2017 11:4 [...] - 199 mg/dL 10/06/2021 2:44 PM CDT [facility] HDL Cholesterol 29(L) >=40 mg/dL 2:44 PM CDT [facility] Non HDL Chol, Calculated 175(H) <=159 mg/dL 10/06/2021 2:44 PM CDT [facility] Blood Venipuncture / Unknown 10/06/2021 12:58 PM CDT 10/06/2021 12:58 PM CDT Feliciano Dexter MD LAB_1 Final Result [facility] [address] [place] [address], [facility] [phone] from Last 3 Months or Most Recently Relevant to Health Maintenance Insurance [facility] OUT OF STATE Care Teams Live Truck Operator Relationship Specialty [place] [address] [place] [address] [place] [id number] PCP - General Family Practice 02/22/17
--- OUTSIDE RECORDS SUMMARY | 2024-08-19 10:33 | XMS_ITS | Continuity of Care Document ---
Author Name [facility] Organization [facility] Care Team Providers Care Lead Consultant Name Role Phone [facility] Unavailable Unavailable Problems Combined list of problems from Department of Defense and Veterans Affairs facilities. It does not include entries that were removed or entered in error. Problem Status Onset Date Problem Type Date of Resolution Comments Source ADHD - Attention deficit disorder with hyperactivity Active Condition [facility] Alcohol abuse Active Condition [facility] Alcohol dependence Active Condition [facility] Alcohol-induced anxiety disorder [facility] Alcoholic fatty liver Active Condition [facility] Anxiety Active Condition [facility] Cannabis abuse Active Condition [facility] Depressive disorder Active Condition [facility] Exposure to potentially hazardous substance Active Condition [facility] Exposure to potentially hazardous substance ([facility] [id number]) Active Condition Jul 26 Entered By: SUKUMAR RIOS Comment: Entered automatically through [facility] Problem List documentation program [facility] Family social history Active Condition Jul 18, 2024 Entered By: RAGINI BLANK Comment: alcohol- quit 2023, hx of AUDFeb 2024 Entered By: RAGINI BLANK Comment: tobacco- smokes 5 cig/day , for 12 yearsFeb 2024 Entered By: RAGINI BLANK Comment: illicit drug- noneFeb 2024 Entered By: RAGINI BLANK Comment: , has one daughterFeb 2024 Entered By: RAGINI BLANK Comment: in school- going to [employer] [facility] Fatty liver [facility] Hyper[facility]cemia Active Condition [facility] Hyperlipidemia Active [facility]omnia [facility] Major depressive disorder Active Condition [facility] Myopia Active Condition [facility] Posttraumatic stress disorder Active Condition [facility] Social phobia Active Condition [facility] Tobacco abuse Active Condition [facility] Tobacco use Active Condition [facility] Diagnosis: ICD-10-CM F10.129 Alcohol abuse with intoxication, unspecified Active Diagnosis [facility] Diagnosis: ICD-10-CM F43.10 Post-traumatic stress disorder, unspecified Active Diagnosis [facility] Diagnosis: ICD-10-CM Z00.00 Encntr for general adult medical exam w/o abnormal findings Active Diagnosis [facility] Diagnosis: ICD-10-CM F33.8 Other recurrent depressive disorders Active Diagnosis [facility] Diagnosis: ICD-10-CM F43.20 Adjustment disorder, unspecified Active Diagnosis [facility] Diagnosis: ICD-10-CM F10.20 Alcohol dependence, uncomplicated Active Diagnosis [facility] Admit Reason: ETOH WITHDRAWAL Active Diagnosis [facility] Diagnosis: ICD-10-CM F10.120 Alcohol abuse with intoxication, uncomplicated Active Diagnosis [facility] Diagnosis: ICD-10-CM S06.0XAA Concussion with LOC status unknown, initial encounter Active Diagnosis [facility] Diagnosis: ICD-10-CM F10.29 Alcohol dependence with unspecified alcohol-induced disorder Active Diagnosis [facility] Diagnosis: ICD-10-CM R45.851 Suicidal ideations Active Diagnosis [facility] Admit Reason: ETOH,SI Active Diagnosis [facility] Diagnosis: ICD-10-CM F10.229 Alcohol dependence with intoxication, unspecified Active Diagnosis [facility] Diagnosis: ICD-10-CM F33.1 Major depressive disorder, recurrent, moderate Active Diagnosis [facility] Diagnosis: ICD-10-CM F10.10 Alcohol abuse, uncomplicated Active Diagnosis [facility] Diagnosis: ICD-10-CM Z13.6 Encounter for screening for cardiovascular disorders Active Diagnosis [facility] Diagnosis: ICD-10-CM Z72.89 Other problems related to lifestyle Active Diagnosis [facility] Diagnosis: ICD-10-CM Z71.81 Spiritual or hindu counseling Active Diagnosis [facility] Diagnosis: ICD-10-CM F90.9 Attention-deficit hyperactivity disorder, unspecified type Active Diagnosis [facility] Admit Reason: DETOX Active Diagnosis [facility] Diagnosis: ICD-10-CM Z72.0 Tobacco use Active Diagnosis [facility] Admit Reason: ETOH S/I Active Diagnosis [facility] Diagnosis: ICD-10-CM Z13.79 Encntr for oth screening for genetic and chromsoml anomalies Active Diagnosis [facility] Diagnosis: ICD-10-CM F41.9 Anxiety disorder, unspecified Active Diagnosis [facility] Diagnosis: ICD-10-CM K76.0 Fatty (change of) liver, not elsewhere classified Active Diagnosis [facility] Diagnosis: ICD-10-CM F10.988 Alcohol use, unspecified with other alcohol-induced disorder Active Diagnosis [facility] Diagnosis: ICD-10-CM Z56.9 Unspecified problems related to employment Active Diagnosis [facility] Diagnosis: ICD-10-CM Z71.89 Other specified counseling Active Diagnosis [facility] Diagnosis: ICD-10-CM F41.1 Generalized anxiety disorder Active Diagnosis [facility] Admit Reason: dual Active Diagnosis [facility] Diagnosis: ICD-10-CM Z51.81 Encounter for therapeutic drug level monitoring Active Diagnosis [facility] Diagnosis: ICD-10-CM F10.951 Alcohol use, unsp w alcoh-induce psych disorder w hallucin Active Diagnosis [facility] Diagnosis: ICD-10-CM 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 Medication Details Route Status Patient Instructions Prescription Expires Prescription Number Last Dispense Date Ordering Provider Order Date Order Qty Source AMPHETAMINE -DEXTROAMPH ETAMINE RESIN COMPLEX 20MG CAP,SA TAKE ONE CAPSULE BY MOUTH TWICE A DAY FOR ATTENTIO N ORAL DISCONT INUED (EDIT) 07/08/2023 [id number] 4 AMALIA MATIAS 2023 56 [place] [facility] AMPHETAMINE /DEXTROAMPH ETAMINE RESIN COMPLEX 30MG CAP,SA TAKE ONE CAPSULE BY MOUTH TWICE A DAY FOR ATTENTIO N ORAL ACTIVE 08/25/2024 [id number] 5 AMALIA MATIAS E 2024 56 [place] [facility] AMPHETAMINE /DEXTROAMPH ETAMINE RESIN COMPLEX 30MG CAP,SA TAKE ONE CAPSULE BY MOUTH TWICE A DAY FOR ATTENTIO N ORAL DISCONT INUED 07/27/2024 [id number] 5 AMALIA MATIAS E 2024 56 [place] [facility] AMPHETAMINE /DEXTROAMPH ETAMINE RESIN COMPLEX 30MG CAP,SA TAKE ONE CAPSULE BY MOUTH TWICE A DAY FOR ATTENTIO N ORAL DISCONT INUED 07/01/2024 [id number] 4 CARLITOS OH E 2023 56 [place] [facility] AMPHETAMINE /DEXTROAMPH ETAMINE RESIN COMPLEX 30MG CAP,SA TAKE ONE CAPSULE BY MOUTH TWICE A DAY FOR ATTENTIO N ORAL DISCONT INUED 06/07/2024 [id number] 4 AMALIA MATIAS E 2023 56 [facility] AMPHETAMINE /DEXTROAMPH ETAMINE RESIN COMPLEX 30MG CAP,SA TAKE ONE CAPSULE BY MOUTH TWICE A DAY FOR ATTENTIO N ORAL DISCONT INUED 04/08/2024 [id number] 4 AMALIA MATIAS E 2023 56 [facility] AMPHETAMINE /DEXTROAMPH ETAMINE RESIN COMPLEX 30MG CAP,SA TAKE ONE CAPSULE BY MOUTH TWICE A DAY FOR ATTENTIO N ORAL DISCONT INUED 03/11/2024 [id number] 4 AMALIA MATIAS E 2023 56 [facility] AMPHETAMINE /DEXTROAMPH ETAMINE RESIN COMPLEX 30MG CAP,SA TAKE ONE CAPSULE BY MOUTH TWICE A DAY FOR ATTENTIO N ORAL DISCONT INUED 02/11/2024 [id number] 4 AMALIA MATIAS E 2023 56 [facility] AMPHETAMINE /DEXTROAMPH ETAMINE RESIN COMPLEX 30MG CAP,SA TAKE ONE CAPSULE BY MOUTH TWICE A DAY FOR ATTENTIO N ORAL DISCONT INUED 01/16/2024 [id number] 4 AMALIA MATIAS E 2023 56 [facility] AMPHETAMINE /DEXTROAMPH ETAMINE RESIN COMPLEX 30MG CAP,SA TAKE ONE CAPSULE BY MOUTH TWICE A DAY FOR ATTENTIO N ORAL DISCONT INUED 12/18/2023 [id number] 4 AMALIA MATIAS E 2023 56 [facility] AMPHETAMINE /DEXTROAMPH ETAMINE RESIN COMPLEX 30MG CAP,SA TAKE ONE CAPSULE BY MOUTH TWICE A DAY FOR ATTENTIO N (WILL PROVIDE FULL SUPPLY AFTER APPT ON 09/29 ) ORAL DISCONT INUED 10/24/2023 [id number] 4 AMALIA MATIAS IE E 2023 28 [place] [facility] AMPHETAMINE /DEXTROAMPH ETAMINE RESIN COMPLEX 30MG CAP,SA TAKE ONE CAPSULE BY MOUTH TWICE A DAY FOR ATTENTIO N ORAL DISCONT INUED 10/16/2023 [id number] 4 AMALIA MATIAS E 2023 28 [facility] AMPHETAMINE /DEXTROAMPH ETAMINE RESIN COMPLEX 30MG CAP,SA TAKE ONE CAPSULE BY MOUTH TWICE A DAY FOR ATTENTIO N ORAL DISCONT INUED 09/18/2023 [id number] 4 AMALIA MATIAS E 2023 56 [facility] AMPHETAMINE /DEXTROAMPH ETAMINE RESIN COMPLEX 30MG CAP,SA TAKE ONE CAPSULE BY MOUTH TWICE A DAY FOR ATTENTIO N ORAL DISCONT INUED 08/22/2023 [id number] 4 AMALIA MATIAS IE E 2023 56 [facility] AMPHETAMINE /DEXTROAMPH ETAMINE RESIN COMPLEX 30MG CAP,SA TAKE ONE CAPSULE BY MOUTH TWICE A DAY FOR ATTENTIO N ORAL DISCONT INUED 07/23/2023 [id number] 4 AMALIA MATIAS E 2023 56 [facility] AMPHETAMINE /DEXTROAMPH ETAMINE RESIN COMPLEX 30MG CAP,SA TAKE ONE CAPSULE BY MOUTH TWICE A DAY FOR ATTENTIO N ORAL 05/03/2024 [id number] 4 AMALIA MATIAS E 2023 56 [facility] AMPHETAMINE /DEXTROAMPH ETAMINE RESIN COMPLEX 30MG CAP,SA TAKE ONE CAPSULE BY MOUTH TWICE A DAY FOR ATTENTIO N ORAL 11/11/2023 [id number] 4 AMALIA MATIAS IE E 2023 56 [facility] DIAZEPAM 5MG TAB TAKE ONE TABLET BY MOUTH TWICE A DAY FOR ALCOHOL WITHDRAW AL/ANXIE TY ORAL 04/06/2024 [id number] 4 MUALIN,IS MAIL H 2023 4 [facility] DISULFIRAM 250MG TAB TAKE ONE TABLET BY MOUTH EVERY DAY FOR SOBRIETY ORAL ACTIVE 05/18/2025 [id number] 4 AMALIA MATIAS IE E 2023 90 [facility] FOLIC ACID 1MG TAB TAKE ONE TABLET BY MOUTH EVERY DAY FOR FOLIC ACID SUPPLEME NT ORAL ACTIVE 03/08/2025 [id number] 4 MUALIN,IS MAIL H 2023 30 [facility] FOLIC AC[facility] 1MG TAB TAKE TWO TABLETS BY MOUTH EVERY DAY FOR ALCOHOL WITHDRAW AL ORAL 11/18/2023 [id number] 4 [place] ESTRADA [address] [facility] GABAPENTIN 300MG CAP TAKE TWO CAPSULES THREE TIMES A DAY FOR 2 DAYS, THEN TAKE ONE CAPSULE BY MOUTH THREE TIMES A DAY FOR 2 DAYS FOR ALCOHOL WITHDRAW AL 06/10/2024 [id number] 4 MARGO VASQUEZ 2023 18 [facility] GABAPENTIN 600MG TAB TAKE 1 TABLET BY MOUTH THREE TIMES A DAY FOR 2 DAYS ALCOHOL WITHDRAW AL ORAL DISCONT INUED 06/10/2024 [id number] 4 MARGO VASQUEZ 2023 6 [facility] IBUPROFEN 200MG TAB TAKE ONE TABLET BY MOUTH TWICE A DAY NEEDED FOR PAIN ORAL 08/16/2024 [id number] 5 SUE BLANK 2024 100 [facility] KETAMINE INJ,SOLN INJECT IV INTRAV ENOUS ACTIVE Ronald JORDANBERRADHA R 2023 [facility] MULTIVITAMI N/MINERALS SENIOR FORMULA TAB TAKE 1 TABLET BY MOUTH EVERY DAY FOR SUPPLEME NT ORAL ACTIVE 12/17/2024 [id number] 4 AMALIA MATIAS E 2023 60 [facility] MULTIVITAMI N/MINERALS SENIOR FORMULA TAB TAKE 1 TABLET BY MOUTH EVERY MORNING FOR VITAMIN SUPPLEME NT ORAL 11/18/2023 [id number] [place] ESTRADA 2023 14 [facility] NALTREXONE (EQV-REVIA) 50MG TAB TAKE ONE TABLET BY MOUTH EVERY DAY TO REDUCE CRAVINGS ORAL 08/24/2023 [id number] 4 FILIPE CHOE BINDESH 2023 30 [facility] NICOTINE POLACRILEX 2MG TAB,CHEWG GUM CHEW 1 PIECE IN MOUTH EVERY 2 HOURS NEEDED FOR QUITTING SMOKING NO SMOKING OR CHEWING TOBACCO WHILE USING GUM ORAL 11/18/2023 [id number] [place] ESTRADA 2023 110 [facility] THIAMINE 100MG TAB 100MG PO QDAY ORAL DISCONT INUED 03/07/2024 DAVE LAWTON 2023 [facility] THIAMINE 100MG TAB TAKE ONE TABLET BY MOUTH EVERY DAY FOR SUPPLEME NT ORAL 06/05/2024 [id number] 4 TETE THOMAS 2023 100 [facility] THIAMINE 100MG TAB TAKE ONE TABLET BY MOUTH ONCE A DAY FOR ALCOHOL WITHDRAW AL ORAL 11/18/2023 [id number] [place] ESTRADA 2023 14 [facility] TRAZODONE HCL 100MG TAB TAKE ONE TABLET BY MOUTH AT BEDTIME NEEDED FOR SLEEP ORAL ACTIVE 03/10/2025 [id number] 4 AMALIA MATIAS E 2023 90 [facility] TRAZODONE HCL 100MG TAB TAKE ONE TABLET BY MOUTH AT BEDTIME NEEDED FOR SLEEP ORAL DISCONT INUED 09/13/2024 [id number] 4 AMALIA MATIAS E 2023 90 [facility] Immunizations Combined list of available immunizations from the Department of Defense and Veterans Affairs facilities. Immunization Series Date Given Administered By Site Reaction Lot Number CVX Code Drug Black Leather Buffer Status Comments Source INFLUENZA, INJECTABLE, QUADRIVALENT, PRESERVATIVE FREE 2020 150 complet ed Partner:Lemuel MASCORRO.Admin istered by:[facility] [id number].([id number]) .ND:[id number] ddress:17 [id number] [id number] Dosage: ML 0.5 [facility] COVID-19 (MODERNA), MRNA, LNP-S, PF, 100 MCG/0.5ML DOSE OR 50 MCG/0.25ML DOSE 2020 207 complet ed [facility] COVID-19 (MODERNA), MRNA, LNP-S, PF, 100 MCG/0.5ML DOSE OR 50 MCG/0.25ML DOSE 2020 207 complet ed [facility] INFLUENZA, INJECTABLE, QUADRIVALENT, PRESERVATIVE FREE 2019 150 complet ed [facility] INFLUENZA, INJECTABLE, QUADRIVALENT 2018 158 complet ed [facility] INFLUENZA, INJECTABLE, MDCK, PRESERVATIVE FREE, QUADRIVALENT 2017 171 complet ed [facility] INFLUENZA, SEASONAL, INJECTABLE 2017 141 complet ed [facility] INFLUENZA, SEASONAL, INJECTABLE 2016 141 complet ed [facility] TDAP 2016 115 complet ed [facility] INFLUENZA, INJECTABLE,QU ADRIVALENT, PRESERVATIVE FREE, PEDIATRIC 2016 161 complet ed [facility] PNEUMOCOCCAL POLYSACCHARID E PPV23 2016 33 complet ed [employer] [id number] [facility] INFLUENZA, SEASONAL, INJECTABLE, PRESERVATIVE FREE 2016 140 complet ed [facility] TDAP 2016 115 complet ed [employer]Kline,4S NH42,08/06 08/23 [facility] INFLUENZA, SEASONAL, INJECTABLE 2016 141 complet ed [facility] INFLUENZA, SEASONAL, INJECTABLE 2015 141 complet ed per phone call/jamil rds from [facility] TDAP 2015 115 complet ed [facility] INFLUENZA, INJECTABLE, QUADRIVALENT, PRESERVATIVE FREE 2013 150 complet ed [facility] NOVEL INFLUENZA-H1N 1-09, ALL FORMULATIONS 2012 128 complet ed [facility] Results Combined list of recent chemistry, hematology and other laboratory results from Department of Defense and Veterans Affairs, ranging from 15 months to all on record, depending upon the facility. Order Name Results Value Reference Range Date Interpretation Specimen Comments Source CALCIUM CALCIUM [MASS/VOLU ME] IN SERUM OR PLASMA 9.5 mg/dL 8.4 - 10.2 07/18 Specimen Type: PLASMA No comment entered. Ordering Provider: GABRIEL BLANK Report Released Date/Time: Jul 18, 2024 10:39 AM Reporting Lab: [facility] [address] Performing Lab: [facility] [address] [facility] CBC LEUKOCYTES [#/VOLUME] IN BLOOD BY AUTOMATED COUNT 6.2 4.0 - 11.0 07/18 Specimen Type: BLOOD No comment entered. Ordering Provider: GABRIEL BLANK Report Released Date/Time: Jul 18, 2024 10:39 AM Reporting Lab: [facility] [address] Performing Lab: [facility] [address] [facility] CBC ERYTHROCYT ES [#/VOLUME] IN BLOOD BY AUTOMATED COUNT 5.01 4.60 - 6.20 07/18 Specimen Type: BLOOD No comment entered. Ordering Provider: GABRIEL BLANK Report Released Date/Time: Jul 18, 2024 10:39 AM Reporting Lab: [facility] [address] Performing Lab: [facility] [address] [facility] CBC HEMOGLOBIN [MASS/VOLU ME] IN BLOOD 15.2 g/dL 13.5 - 17.9 07/18 Specimen Type: BLOOD No comment entered. Ordering Provider: GABRIEL BLANK Report Released Date/Time: Jul 18, 2024 10:39 AM Reporting Lab: [facility] [address] Performing Lab: [facility] [address] [facility] CBC HEMATOCRIT [VOLUME FRACTION] OF BLOOD BY AUTOMATED COUNT 44.8 41.0 - 54.0 07/18 Specimen Type: BLOOD No comment entered. Ordering Provider: GABRIEL BLANK Report Released Date/Time: Jul 18, 2024 10:39 AM Reporting Lab: [facility] [address] Performing Lab: [facility] [address] [facility] CBC MCV [ENTITIC VOLUME] BY AUTOMATED COUNT 89.4 fL 80.0 - 100.0 07/18 Specimen Type: BLOOD No comment entered. Ordering Provider: GABRIEL BLANK Report Released Date/Time: Jul 18, 2024 10:39 AM Reporting Lab: [facility] [address] Performing Lab: [facility] [address] [facility] CBC MCH [ENTITIC MASS] BY AUTOMATED COUNT 30.3 pg 27.0 - 33.0 07/18 Specimen Type: BLOOD No comment entered. Ordering Provider: GABRIEL BLANK Report Released Date/Time: Jul 18, 2024 10:39 AM Reporting Lab: [facility] [address] Performing Lab: [facility] [address] [facility] CBC MCHC [MASS/VOLU ME] BY AUTOMATED COUNT 33.9 g/dL 32.0 - 37.5 07/18 Specimen Type: BLOOD No comment entered. Ordering Provider: GABRIEL BLANK Report Released Date/Time: Jul 18, 2024 10:39 AM Reporting Lab: [facility] [address] Performing Lab: [facility] [address] [facility] CBC PLATELETS [#/VOLUME] IN BLOOD BY AUTOMATED COUNT 234 150 - 400 07/18 Specimen Type: BLOOD No comment entered. Ordering Provider: GABRIEL BLANK Report Released Date/Time: Jul 18, 2024 10:39 AM Reporting Lab: [facility] [address] Performing Lab: [facility] [address] [facility] CBC PLATELET MEAN VOLUME [ENTITIC VOLUME] IN BLOOD BY AUTOMATED COUNT 10.1 fL 9.1 - 13.0 07/18 Specimen Type: BLOOD No comment entered. Ordering Provider: GABRIEL BLANK Report Released Date/Time: Jul 18, 2024 10:39 AM Reporting Lab: [facility] [address] Performing Lab: [facility] [address] [facility] CBC ERYTHROCYT E DISTRIBUTI ON WIDTH [RATIO] BY AUTOMATED COUNT 12.4 11.5 - 14.5 07/18 Specimen Type: BLOOD No comment entered. Ordering Provider: GABRIEL BLANK Report Released Date/Time: Jul 18, 2024 10:39 AM Reporting Lab: [facility] [address] Performing Lab: [facility] [address] [facility] COMPREHE NSIVE METABOLI C PANEL+MG CREATININE [MASS/VOLU ME] IN SERUM OR PLASMA 0.9 mg/dL 0.7 - 1.2 07/18 Specimen Type: PLASMA No comment entered. Ordering Provider: GABRIEL BLANK Report Released Date/Time: Jul 18, 2024 10:39 AM Reporting Lab: [facility] [address] Performing Lab: [facility] [address] [facility] COMPREHE NSIVE METABOLI C PANEL+MG UREA NITROGEN [MASS/VOLU ME] IN SERUM OR PLASMA 11 mg/dL 8 - 26 07/18 Specimen Type: PLASMA No comment entered. Ordering Provider: GABRIEL BLANK Report Released Date/Time: Jul 18, 2024 10:39 AM Reporting Lab: [facility] [address] Performing Lab: [facility] [address] [facility] COMPREHE NSIVE METABOLI C PANEL+MG GLUCOSE [MASS/VOLU ME] IN SERUM OR PLASMA 130 mg/dL 70 - 100 07/18 H Specimen Type: PLASMA No comment entered. Ordering Provider: GABRIEL BLANK Report Released Date/Time: Jul 18, 2024 10:39 AM Reporting Lab: [facility] [address] Performing Lab: [facility] [address] [facility] COMPREHE NSIVE METABOLI C PANEL+MG SODIUM [MOLES/VOL UME] IN SERUM OR PLASMA 143 mmol/L 136 - 145 07/18 Specimen Type: PLASMA No comment entered. Ordering Provider: GABRIEL BLANK Report Released Date/Time: Jul 18, 2024 10:39 AM Reporting Lab: [facility] [address] Performing Lab: [facility] [address] [facility] COMPREHE NSIVE METABOLI C PANEL+MG POTASSIUM [MOLES/VOL UME] IN SERUM OR PLASMA 4.2 mmol/L 3.5 - 5.1 07/18 Specimen Type: PLASMA No comment entered. Ordering Provider: GABRIEL BLANK Report Released Date/Time: Jul 18, 2024 10:39 AM Reporting Lab: [facility] [address] Performing Lab: [facility] [address] [facility] COMPREHE NSIVE METABOLI C PANEL+MG CHLORIDE [MOLES/VOL UME] IN SERUM OR PLASMA 109 mmol/L 98 - 107 07/18 H Specimen Type: PLASMA No comment entered. Ordering Provider: GABRIEL BLANK Report Released Date/Time: Jul 18, 2024 10:39 AM Reporting Lab: [facility] [address] Performing Lab: [facility] [address] [facility] COMPREHE NSIVE METABOLI C PANEL+MG CARBON DIOXIDE, TOTAL [MOLES/VOL UME] IN SERUM OR PLASMA 24 mmol/L 22 - 29 07/18 Specimen Type: PLASMA No comment entered. Ordering Provider: GABRIEL BLANK Report Released Date/Time: Jul 18, 2024 10:39 AM Reporting Lab: [facility] [address] Performing Lab: [facility] [address] [facility] COMPREHE NSIVE METABOLI C PANEL+MG CALCIUM [MASS/VOLU ME] IN SERUM OR PLASMA 9.5 mg/dL 8.4 - 10.2 07/18 Specimen Type: PLASMA No comment entered. Ordering Provider: GABRIEL BLANK Report Released Date/Time: Jul 18, 2024 10:39 AM Reporting Lab: [facility] [address] Performing Lab: [facility] [address] [facility] COMPREHE NSIVE METABOLI C PANEL+MG PROTEIN [MASS/VOLU ME] IN SERUM OR PLASMA 7.1 g/dL 6.4 - 8.3 07/18 Specimen Type: PLASMA No comment entered. Ordering Provider: GABRIEL BLANK Report Released Date/Time: Jul 18, 2024 10:39 AM Reporting Lab: [facility] [address] Performing Lab: [facility] [address] [facility] COMPREHE NSIVE METABOLI C PANEL+MG ALBUMIN [MASS/VOLU ME] IN SERUM OR PLASMA 4.2 g/dL 3.5 - 5.0 07/18 Specimen Type: PLASMA No comment entered. Ordering Provider: GABRIEL BLANK Report Released Date/Time: Jul 18, 2024 10:39 AM Reporting Lab: [facility] [address] Performing Lab: [facility] [address] [facility] COMPREHE NSIVE METABOLI C PANEL+MG BILIRUBIN. TOTAL [MASS/VOLU ME] IN SERUM OR PLASMA 0.3 mg/dL 0.2 - 1.2 07/18 Specimen Type: PLASMA No comment entered. Ordering Provider: GABRIEL BLANK Report Released Date/Time: Jul 18, 2024 10:39 AM Reporting Lab: [facility] [address] Performing Lab: [facility] [address] [facility] COMPREHE NSIVE METABOLI C PANEL+MG MAGNESIUM [MASS/VOLU ME] IN SERUM OR PLASMA 1.8 mg/dL 1.6 - 2.6 07/18 Specimen Type: PLASMA No comment entered. Ordering Provider: GABRIEL BLANK Report Released Date/Time: Jul 18, 2024 10:39 AM Reporting Lab: [facility] [address] Performing Lab: [facility] [address] [facility] COMPREHE NSIVE METABOLI C PANEL+MG ANION GAP IN SERUM OR PLASMA 10 mmol/L 5 - 15 07/18 Specimen Type: PLASMA No comment entered. Ordering Provider: GABRIEL BLANK Report Released Date/Time: Jul 18, 2024 10:39 AM Reporting Lab: [facility] [address] Performing Lab: [facility] [address] [facility] COMPREHE NSIVE METABOLI C PANEL+MG ALKALINE PHOSPHATAS E [ENZYMATIC ACTIVITY/V OLUME] IN SERUM OR PLASMA 52 U/L 40 - 150 07/18 Specimen Type: PLASMA No comment entered. Ordering Provider: GABRIEL BLANK Report Released Date/Time: Jul 18, 2024 10:39 AM Reporting Lab: [facility] [address] Performing Lab: [facility] [address] [facility] COMPREHE NSIVE METABOLI C PANEL+MG ALANINE AMINOTRANS FERASE [ENZYMATIC ACTIVITY/V OLUME] IN SERUM OR PLASMA 12 U/L <44 - 44 07/18 Specimen Type: PLASMA No comment entered. Ordering Provider: GABRIEL BLANK Report Released Date/Time: Jul 18, 2024 10:39 AM Reporting Lab: [facility] [address] Performing Lab: [facility] [address] [facility] COMPREHE NSIVE METABOLI C PANEL+MG ASPARTATE AMINOTRANS FERASE [ENZYMATIC ACTIVITY/V OLUME] IN SERUM OR PLASMA 18 U/L 11 - 34 07/18 Specimen Type: PLASMA No comment entered. Ordering Provider: GABRIEL BLANK Report Released Date/Time: Jul 18, 2024 10:39 AM Reporting Lab: [facility] [address] Performing Lab: [facility] [address] [facility] COMPREHE NSIVE METABOLI C PANEL+MG GLOMERULAR FILTRATION RATE/1.73 SQ M.PREDICTE D [VOLUME RATE/AREA] IN SERUM, PLASMA OR BLOOD BY CREATININE -BASED FORMULA (CKD-EPI 2020) >90 60 07/18 Specimen Type: PLASMA No comment entered. Ordering Provider: GABRIEL BLANK Report Released Date/Time: Jul 18, 2024 10:39 AM Reporting Lab: [facility] [address] Performing Lab: [facility] [address] [facility] HEMOGLOB IN A1C HEMOGLOBIN A1C/HEMOGL OBIN.TOTAL IN BLOOD 5.5 4.0 - 6.0 07/18 Specimen Type: BLOOD Comment: Values obtained from A1C measurement s can vary. For typical A1C assays, a reported value of 7.0 could actually be between 6.7 and 7.3 if measured by a reference method. A reported value of 9.0 could actually be between 8.7 and 9.3. Ref: http://www. ngsp.org/[place] Pdata.asp Ordering Provider: GABRIEL BLANK Report Released Date/Time: Jul 18, 2024 10:39 AM Reporting Lab: [facility] [address] Performing Lab: [facility] [address] [facility] TSH W/REFLEX TO FREE T4 THYROTROPI N [UNITS/VOL UME] IN SERUM OR PLASMA 1.88 u[IU]/mL 0.35 - 4.94 07/18 Specimen Type: PLASMA No comment entered. Ordering Provider: GABRIEL BLANK Report Released Date/Time: Jul 18, 2024 10:39 AM Reporting Lab: [facility] [address] Performing Lab: [facility] [address] [facility] CBC LEUKOCYTES [#/VOLUME] IN BLOOD BY AUTOMATED COUNT 5.1 4.0 - 11.0 05/11 Specimen Type: BLOOD No comment entered. Ordering Provider: MARGO CANSECO Report Released Date/Time: May 10, 2024 07:15 PM Reporting Lab: [facility] [address] Performing Lab: [facility] [address] [place] [facility] CBC ERYTHROCYT ES [#/VOLUME] IN BLOOD BY AUTOMATED COUNT 4.19 4.60 - 6.20 05/11 L Specimen Type: BLOOD No comment entered. Ordering Provider: MARGO CANSECO Report Released Date/Time: May 10, 2024 07:15 PM Reporting Lab: [facility] [address] Performing Lab: [facility] [address] [place] [facility] CBC HEMOGLOBIN [MASS/VOLU ME] IN BLOOD 12.5 g/dL 13.5 - 17.9 05/11 L Specimen Type: BLOOD No comment entered. Ordering Provider: MARGO CANSECO Report Released Date/Time: May 10, 2024 07:15 PM Reporting Lab: [facility] [address] Performing Lab: [facility] [address] [facility] CBC HEMATOCRIT [VOLUME FRACTION] OF BLOOD BY AUTOMATED COUNT 36.6 41.0 - 54.0 05/11 L Specimen Type: BLOOD No comment entered. Ordering Provider: MARGO CANSECO Report Released Date/Time: May 10, 2024 07:15 PM Reporting Lab: [facility] [address] Performing Lab: [facility] [address] [facility] CBC MCV [ENTITIC VOLUME] BY AUTOMATED COUNT 87.4 fL 80.0 - 100.0 05/11 Specimen Type: BLOOD No comment entered. Ordering Provider: MARGO CANSECO Report Released Date/Time: May 10, 2024 07:15 PM Reporting Lab: [facility] [address] Performing Lab: [facility] [address] [place] [facility] CBC MCH [ENTITIC MASS] BY AUTOMATED COUNT 29.8 pg 27.0 - 33.0 05/11 Specimen Type: BLOOD No comment entered. Ordering Provider: MARGO CANSECO Report Released Date/Time: May 10, 2024 07:15 PM Reporting Lab: [facility] [address] Performing Lab: [facility] [address] [place] [facility] CBC MCHC [MASS/VOLU ME] BY AUTOMATED COUNT 34.2 g/dL 32.0 - 37.5 05/11 Specimen Type: BLOOD No comment entered. Ordering Provider: MARGO CANSECO Report Released Date/Time: May 10, 2024 07:15 PM Reporting Lab: [facility] [address] Performing Lab: [facility] [address] [place] [facility] CBC PLATELETS [#/VOLUME] IN BLOOD BY AUTOMATED COUNT 74 150 - 400 05/11 L Specimen Type: BLOOD No comment entered. Ordering Provider: MARGO CANSECO Report Released Date/Time: May 10, 2024 07:15 PM Reporting Lab: [facility] [address] Performing Lab: [facility] [address] [place] [facility] CBC PLATELET MEAN VOLUME [ENTITIC VOLUME] IN BLOOD BY AUTOMATED COUNT 10.6 fL 9.1 - 13.0 05/11 Specimen Type: BLOOD No comment entered. Ordering Provider: MARGO CANSECO Report Released Date/Time: May 10, 2024 07:15 PM Reporting Lab: [facility] [address] Performing Lab: [facility] [address] [place] [facility] CBC ERYTHROCYT E DISTRIBUTI ON WIDTH [RATIO] BY AUTOMATED COUNT 13.3 11.5 - 14.5 05/11 Specimen Type: BLOOD No comment entered. Ordering Provider: MARGO CANSECO Report Released Date/Time: May 10, 2024 07:15 PM Reporting Lab: [facility] [address] Performing Lab: [facility] [address] [place] [facility] CBC PLATELETS RETICULATE D/100 PLATELETS IN BLOOD BY AUTOMATED COUNT 5.6 0 - 10 05/11 Specimen Type: BLOOD No comment entered. Ordering Provider: MARGO CANSECO Report Released Date/Time: May 10, 2024 07:15 PM Reporting Lab: [facility] [address] Performing Lab: [facility] [address] [place] [facility] ALBUMIN ALBUMIN [MASS/VOLU ME] IN SERUM OR PLASMA 3.7 g/dL 3.5 - 5.0 05/11 Specimen Type: PLASMA No comment entered. Ordering Provider: MARGO CANESCO Report Released Date/Time: May 10, 2024 07:15 PM Reporting Lab: [facility] [address] Performing Lab: [facility] [address] [place] [facility] COMPREHE NSIVE METABOLI C PANEL+MG CREATININE [MASS/VOLU ME] IN SERUM OR PLASMA 0.8 mg/dL 0.7 - 1.2 05/11 Specimen Type: PLASMA No comment entered. Ordering Provider: MARGO CANSECO Report Released Date/Time: May 10, 2024 07:15 PM Reporting Lab: [facility] [address] Performing Lab: [facility] [address] [place] [facility] COMPREHE NSIVE METABOLI C PANEL+MG UREA NITROGEN [MASS/VOLU ME] IN SERUM OR PLASMA 11 mg/dL 8 - 26 05/11 Specimen Type: PLASMA No comment entered. Ordering Provider: MARGO CANSECO Report Released Date/Time: May 10, 2024 07:15 PM Reporting Lab: [facility] [address] Performing Lab: [facility] [address] [place] [facility] COMPREHE NSIVE METABOLI C PANEL+MG GLUCOSE [MASS/VOLU ME] IN SERUM OR PLASMA 123 mg/dL 70 - 100 05/11 H Specimen Type: PLASMA No comment entered. Ordering Provider: MARGO CANSECO Report Released Date/Time: May 10, 2024 07:15 PM Reporting Lab: [facility] [address] Performing Lab: [facility] [address] [place] [facility] COMPREHE NSIVE METABOLI C PANEL+MG SODIUM [MOLES/VOL UME] IN SERUM OR PLASMA 135 mmol/L 136 - 145 05/11 L Specimen Type: PLASMA No comment entered. Ordering Provider: MARGO CANSECO Report Released Date/Time: May 10, 2024 07:15 PM Reporting Lab: [facility] [address] Performing Lab: [facility] [address] [facility] COMPREHE NSIVE METABOLI C PANEL+MG POTASSIUM [MOLES/VOL UME] IN SERUM OR PLASMA 3.4 mmol/L 3.5 - 5.1 05/11 L Specimen Type: PLASMA No comment entered. Ordering Provider: MARGO CANSECO Report Released Date/Time: May 10, 2024 07:15 PM Reporting Lab: [facility] [address] Performing Lab: [facility] [address] [facility] COMPREHE NSIVE METABOLI C PANEL+MG CHLORIDE [MOLES/VOL UME] IN SERUM OR PLASMA 97 mmol/L 98 - 107 05/11 L Specimen Type: PLASMA No comment entered. Ordering Provider: MARGO CANSECO Report Released Date/Time: May 10, 2024 07:15 PM Reporting Lab: [facility] [address] Performing Lab: [facility] [address] [facility] COMPREHE NSIVE METABOLI C PANEL+MG CARBON DIOXIDE, TOTAL [MOLES/VOL UME] IN SERUM OR PLASMA 29 mmol/L 22 - 29 05/11 Specimen Type: PLASMA No comment entered. Ordering Provider: MARGO CANSECO Report Released Date/Time: May 10, 2024 07:15 PM Reporting Lab: [facility] [address] Performing Lab: [facility] [address] [place] [facility] COMPREHE NSIVE METABOLI C PANEL+MG CALCIUM [MASS/VOLU ME] IN SERUM OR PLASMA 8.3 mg/dL 8.4 - 10.2 05/11 L Specimen Type: PLASMA No comment entered. Ordering Provider: MARGO CANSECO Report Released Date/Time: May 10, 2024 07:15 PM Reporting Lab: [facility] [address] Performing Lab: [facility] [address] [place] [facility] COMPREHE NSIVE METABOLI C PANEL+MG PROTEIN [MASS/VOLU ME] IN SERUM OR PLASMA 6.0 g/dL 6.4 - 8.3 05/11 L Specimen Type: PLASMA No comment entered. Ordering Provider: MARGO CANSECO Report Released Date/Time: May 10, 2024 07:15 PM Reporting Lab: [facility] [address] Performing Lab: [facility] [address] [place] [facility] COMPREHE NSIVE METABOLI C PANEL+MG ALBUMIN [MASS/VOLU ME] IN SERUM OR PLASMA 3.7 g/dL 3.5 - 5.0 05/11 Specimen Type: PLASMA No comment entered. Ordering Provider: MARGO CANSECO Report Released Date/Time: May 10, 2024 07:15 PM Reporting Lab: [facility] [address] Performing Lab: [facility] [address] [place] [facility] COMPREHE NSIVE METABOLI C PANEL+MG BILIRUBIN. TOTAL [MASS/VOLU ME] IN SERUM OR PLASMA 1.3 mg/dL 0.2 - 1.2 05/11 H Specimen Type: PLASMA No comment entered. Ordering Provider: MARGO CANSECO Report Released Date/Time: May 10, 2024 07:15 PM Reporting Lab: [facility] [address] Performing Lab: [facility] [address] [place] [facility] COMPREHE NSIVE METABOLI C PANEL+MG MAGNESIUM [MASS/VOLU ME] IN SERUM OR PLASMA 1.4 mg/dL 1.6 - 2.6 05/11 L Specimen Type: PLASMA No comment entered. Ordering Provider: MARGO CANSECO Report Released Date/Time: May 10, 2024 07:15 PM Reporting Lab: [facility] [address] Performing Lab: [facility] [address] [place] [facility] COMPREHE NSIVE METABOLI C PANEL+MG ANION GAP IN SERUM OR PLASMA 9 mmol/L 5 - 15 05/11 Specimen Type: PLASMA No comment entered. Ordering Provider: MARGO CANSECO Report Released Date/Time: May 10, 2024 07:15 PM Reporting Lab: [facility] [address] Performing Lab: [facility] [address] [place] [facility] COMPREHE NSIVE METABOLI C PANEL+MG ALKALINE PHOSPHATAS E [ENZYMATIC ACTIVITY/V OLUME] IN SERUM OR PLASMA 55 U/L 40 - 150 05/11 Specimen Type: PLASMA No comment entered. Ordering Provider: MARGO CANSECO Report Released Date/Time: May 10, 2024 07:15 PM Reporting Lab: [facility] [address] Performing Lab: [facility] [address] [place] [facility] COMPREHE NSIVE METABOLI C PANEL+MG ALANINE AMINOTRANS FERASE [ENZYMATIC ACTIVITY/V OLUME] IN SERUM OR PLASMA 31 U/L <44 - 44 05/11 Specimen Type: PLASMA No comment entered. Ordering Provider: MARGO CANSECO Report Released Date/Time: May 10, 2024 07:15 PM Reporting Lab: [facility] [address] Performing Lab: [facility] [address] [place] [facility] COMPREHE NSIVE METABOLI C PANEL+MG ASPARTATE AMINOTRANS FERASE [ENZYMATIC ACTIVITY/V OLUME] IN SERUM OR PLASMA 53 U/L 11 - 34 05/11 H Specimen Type: PLASMA No comment entered. Ordering Provider: MARGO CANSECO Report Released Date/Time: May 10, 2024 07:15 PM Reporting Lab: [facility] [address] Performing Lab: [facility] [address] [place] [facility] COMPREHE NSIVE METABOLI C PANEL+MG GLOMERULAR FILTRATION RATE/1.73 SQ M.PREDICTE D [VOLUME RATE/AREA] IN SERUM, PLASMA OR BLOOD BY CREATININE -BASED FORMULA (CKD-EPI 2020) >90 60 05/11 Specimen Type: PLASMA No comment entered. Ordering Provider: MARGO CANSECO Report Released Date/Time: May 10, 2024 07:15 PM Reporting Lab: [facility] [address] Performing Lab: [facility] [address] [place] [facility] COMPREHE NSIVE METABOLI C PANEL+MG BILIRUBIN. DIRECT [MASS/VOLU ME] IN SERUM OR PLASMA 0.5 mg/dL <0.5 - 0.5 05/11 Specimen Type: PLASMA No comment entered. Ordering Provider: MARGO CANSECO Report Released Date/Time: May 10, 2024 07:15 PM Reporting Lab: [facility] [address] Performing Lab: [facility] [address] [place] [facility] PHOSPHOR US PHOSPHATE [MASS/VOLU ME] IN SERUM OR PLASMA 2.6 mg/dL 2.3 - 4.3 05/11 Specimen Type: PLASMA No comment entered. Ordering Provider: MARGO CANSECO Report Released Date/Time: May 10, 2024 08:52 PM Reporting Lab: [facility] [address] Performing Lab: [facility] [address] [place] [facility] DRUG SCREEN PANEL,UR INE BARBITURAT ES [PRESENCE] IN URINE BY SCREEN METHOD Negative 05/10 Specimen Type: URINE Comment: Presumptive Positive by screen, results not confirmed. Glucose present in urine. No yeast detected. Ordering Provider: MARGO CANSECO Report Released Date/Time: May 10, 2024 07:15 PM Reporting Lab: [facility] [address] Performing Lab: [facility] [address] [place] [facility] DRUG SCREEN PANEL,UR INE AMPHETAMIN ES [PRESENCE] IN URINE Negative 05/10 Specimen Type: URINE Comment: Presumptive Positive by screen, results not confirmed. Glucose present in urine. No yeast detected. Ordering Provider: MARGO CANSECO Report Released Date/Time: May 10, 2024 07:15 PM Reporting Lab: [facility] [address] Performing Lab: [facility] [address] [place] [facility] DRUG SCREEN PANEL,UR INE COCAINE [PRESENCE] IN URINE Negative 05/10 Specimen Type: URINE Comment: Presumptive Positive by screen, results not confirmed. Glucose present in urine. No yeast detected. Ordering Provider: MARGO CANSECO Report Released Date/Time: May 10, 2024 07:15 PM Reporting Lab: [facility] [address] Performing Lab: [facility] [address] [place] [facility] DRUG SCREEN PANEL,UR INE BENZODIAZE PINES [PRESENCE] IN URINE BY SCREEN METHOD Negative 05/10 Specimen Type: URINE Comment: Presumptive Positive by screen, results not confirmed. Glucose present in urine. No yeast detected. Ordering Provider: MARGO CANSECO Report Released Date/Time: May 10, 2024 07:15 PM Reporting Lab: [facility] [address] Performing Lab: [facility] [address] [place] [facility] DRUG SCREEN PANEL,UR INE CANNABINOI DS [PRESENCE] IN URINE BY SCREEN METHOD POSITIVE 05/10 H Specimen Type: URINE Comment: Presumptive Positive by screen, results not confirmed. Glucose present in urine. No yeast detected. Ordering Provider: MARGO CANSECO Report Released Date/Time: May 10, 2024 07:15 PM Reporting Lab: [facility] [address] Performing Lab: [facility] [address] [place] [facility] DRUG SCREEN PANEL,UR INE METHADONE [PRESENCE] IN URINE Negative 05/10 Specimen Type: URINE Comment: Presumptive Positive by screen, results not confirmed. Glucose present in urine. No yeast detected. Ordering Provider: MARGO CANSECO Report Released Date/Time: May 10, 2024 07:15 PM Reporting Lab: [facility] [address] Performing Lab: [facility] [address] [place] [facility] DRUG SCREEN PANEL,UR INE OPIATES [PRESENCE] IN URINE BY SCREEN METHOD Negative 05/10 Specimen Type: URINE Comment: Presumptive Positive by screen, results not confirmed. Glucose present in urine. No yeast detected. Ordering Provider: MARGO CANSECO Report Released Date/Time: May 10, 2024 07:15 PM Reporting Lab: [facility] [address] Performing Lab: [facility] [address] [place] [facility] DRUG SCREEN PANEL,UR INE PHENCYCLID INE [PRESENCE] IN URINE Negative 05/10 Specimen Type: URINE Comment: Presumptive Positive by screen, results not confirmed. Glucose present in urine. No yeast detected. Ordering Provider: MARGO CANSECO Report Released Date/Time: May 10, 2024 07:15 PM Reporting Lab: [facility] [address] Performing Lab: [facility] [address] [place] [facility] DRUG SCREEN PANEL,UR INE ETHANOL [MASS/VOLU ME] IN URINE POSITIVE 05/10 H Specimen Type: URINE Comment: Presumptive Positive by screen, results not confirmed. Glucose present in urine. No yeast detected. Ordering Provider: MARGO CANSECO Report Released Date/Time: May 10, 2024 07:15 PM Reporting Lab: [facility] [address] Performing Lab: [facility] [address] [place] [facility] DRUG SCREEN PANEL,UR INE CREATININE [MASS/VOLU ME] IN URINE 298.7 mg/dL 20.0 05/10 Specimen Type: URINE Comment: Presumptive Positive by screen, results not confirmed. Glucose present in urine. No yeast detected. Ordering Provider: MARGO CANSECO Report Released Date/Time: May 10, 2024 07:15 PM Reporting Lab: [facility] [address] Performing Lab: [facility] [address] [place] [facility] DRUG SCREEN PANEL,UR INE OXYCODONE [PRESENCE] IN URINE BY SCREEN METHOD Negative 05/10 Specimen Type: URINE Comment: Presumptive Positive by screen, results not confirmed. Glucose present in urine. No yeast detected. Ordering Provider: MARGO CANSECO Report Released Date/Time: May 10, 2024 07:15 PM Reporting Lab: [facility] [address] Performing Lab: [facility] [address] [place] [facility] DRUG SCREEN PANEL,UR INE BUPRENORPH INE+NORBUP RENORPHINE [PRESENCE] IN URINE Negative 05/10 Specimen Type: URINE Comment: Presumptive Positive by screen, results not confirmed. Glucose present in urine. No yeast detected. Ordering Provider: MARGO CANSECO Report Released Date/Time: May 10, 2024 07:15 PM Reporting Lab: [facility] [address] Performing Lab: [facility] [address] [facility] DRUG SCREEN PANEL,UR INE TRAMADOL CUTOFF [MASS/VOLU ME] IN URINE FOR SCREEN METHOD Negative 05/10 Specimen Type: URINE Comment: Presumptive Positive by screen, results not confirmed. Glucose present in urine. No yeast detected. Ordering Provider: MARGO CANSECO Report Released Date/Time: May 10, 2024 07:15 PM Reporting Lab: [facility] [address] Performing Lab: [facility] [address] [facility] DRUG SCREEN PANEL,UR INE FENTANYL [PRESENCE] IN URINE Negative 05/10 Specimen Type: URINE Comment: Presumptive Positive by screen, results not confirmed. Glucose present in urine. No yeast detected. Ordering Provider: MARGO CANSECO Report Released Date/Time: May 10, 2024 07:15 PM Reporting Lab: [facility] [address] Performing Lab: [facility] [address] [place] [facility] DRUG SCREEN PANEL,UR INE GLUCOSE [MASS/VOLU ME] IN URINE POSITIVE 05/10 Specimen Type: URINE Comment: Presumptive Positive by screen, results not confirmed. Glucose present in urine. No yeast detected. Ordering Provider: MARGO CANSECO Report Released Date/Time: May 10, 2024 07:15 PM Reporting Lab: [facility] [address] Performing Lab: [facility] [address] [facility] Vital Signs Combined list of inpatient and outpatient Vital Signs from Department of Defense and Veterans Affairs, ranging from 12 months to all on record, depending upon the facility. Vital Sign Value Date Comments Source SYSTOLIC BLOOD PRESSURE 122 07/18/2024 10:22:21 [facility] DIASTOLIC BLOOD PRESSURE 83 07/18/2024 10:22:21 [facility] PULSE OXIMETRY 96 07/18/2024 10:22:21 [facility] WEIGHT 215.5 07/18/2024 10:22:21 [facility] BMI 29 kg/m2 07/18/2024 10:22:21 [facility] PAIN 0 07/18/2024 10:22:21 [facility] HEIGHT 72.441 07/18/2024 10:22:21 [facility] TEMPERATURE 96.7 07/18/2024 10:22:21 [facility] PULSE 94 07/18/2024 10:22:21 [facility] RESPIRATION 14 07/18/2024 10:22:21 [facility] SYSTOLIC BLOOD PRESSURE 107 05/11/2024 00:58:00 [facility] DIASTOLIC BLOOD PRESSURE 66 05/11/2024 00:58:00 [facility] PULSE OXIMETRY 93 05/11/2024 [facility]58[facility] 05/11/[facility]24 00:58:00 [facility] TEMPERATURE 98.0 05/11/2024 00:58:00 [place] [facility] PULSE 94 05/11/2024 00:58:00 [facility] [place] [facility] RESPIRATION 20 05/11/2024 00:58:00 [place] [facility] SYSTOLIC BLOOD PRESSURE 125 05/10/2024 15:43:00 [facility] DIASTOLIC BLOOD PRESSURE 81 05/10/2024 15:43:00 [facility] PULSE OXIMETRY 96 05/10/2024 15:43:00 [facility] [place] [facility] PAIN 7 05/10/2024 15:43:00 [facility] [place] [facility] RESPIRATION 16 05/10/2024 15:43:00 [place] [facility] SYSTOLIC BLOOD PRESSURE 142 05/05/2024 14:57:24 [facility] DIASTOLIC BLOOD PRESSURE 89 05/05/2024 14:57:24 [facility] PULSE OXIMETRY 94 05/05/2024 14:57:24 [facility] PAIN 0 05/05/2024 14:57:24 [facility] TEMPER[facility] 98.3 05/05/2024 14:57:24 [facility] P[facility] 111 05/05/2024 14:57:24 [facility] [place] [facility] RESPIRATION 16 05/05/2024 14:57[facility]24 [facility] SYSTOL[facility] PRESSURE 116 03/07/2024 00:26:00 [facility] DIASTOLIC BLOOD PRESSURE 72 03/07/2024 00:26:00 [facility] PULSE OXIMETRY 96 03/07/2024 00:26:00 [facility] PAIN 0 03/07/2024 00:26:00 [facility] TEMPERATURE 98.1 03/07/2024 00:26:00 [facility] PULSE 70 03/07/2024 00:26:00 [facility] RESPIRATION 18 03/07/2024 00:26:00 [facility] Encounters Combined list of: 1) [facility]counters [facility] going backup to the last 18 months, not all [place] inpatient encounters are included; 2) Encounters from the [facility] facilities going backup to 280 months. Location Location Details Encounter Type Encounter Number Reason For Visit Attending Provider ADM Date DC Date Status Disposition Source [facility] Outpatient Encounter [id number] 02/21 [facility] PSY EVALUATION OF RECORDS [id number] Diagnos is: ICD-10- CM F10.20 Alcohol depende nce, uncompl icated MARCO HERNÁNDEZ 02/22 [facility] Outpatient Encounter [id number] MARCO HERNÁNDEZ 02/23 [facility] [place] [facility] Outpatient Encounter [id number] 02/25 [facility] [place] [facility] Outpatient Encounter [id number] SYSTEM[facility] -[facility] 02/26 [facility] Outpatient Encounter [id number] 02/26 [facility] EMERGENCY DEPT VISIT LOW MDM [id number] [id number] Diagnos is: ICD-10- CM F10.129 Alcohol abuse with intoxic ation, unspeci fied MADDALI,SE ALETA 02/26 [facility] OFF/OP CNSLTJ NEW/EST MOD 40 [id number] [id number] Diagnos is: ICD-10- CM F10.232 Alcohol depende nce w withdra wal with percept ual disturb BECKA Walker 02/26 [facility] EMERGENCY DEPT VISIT MOD MDM [id number] [id number] Diagnos is: ICD-10- CM F10.131 Alcohol abuse with withdra wal deliriu m DILCIA,THO MAS V 02/26 [facility] Detoxifica t[facility] 37010-961 [id number] Admit Reason: ANNAMARIE DUENAS, POSS DTS TEAM,MED TWO 02/26 Discharge from inpatient treatment to the [facility] (OPT-DE) rolls. 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 DENISHA,N OAH I 02/26 [facility] Inpatient Encounter [id number] [facility] 02/26 [facility] Inpatient Encounter [id number] 02/26 [facility] [place] [facility] En[place] [id number] 02/26 [facility] Encounter [id number] 02/26 [facility] Encounter [id number] 02/26 [facility] [place] [facility] Inpatient Encounter [id number] 02/27 [place] [facility] [place] [facility] Inpatient Encounter [id number] [id number] [facility] 02/27 [place] [facility] [place] [facility] Inpatient Encounter [id number] 02/27 [place] [facility] [place] [facility] Inpatient Encounter [id number] [id number] 02/28 [place] [facility] [place] [facility] Inpatient Encounter [id number] SYSTEM[facility] -[facility] 02/28 [place] [facility] [facility] [place] [facility] Inpatient Encounter [id number] 02/28 [place] [facility] [place] [facility] SBSQ HOSP IP/OBS MODERATE 35 [id number] [id number] Diagnos is: ICD-10- CM 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 DENISHA,N OAH I 02/28 [place] [facility] [facility] [place] [facility] Inpatient Encounter [id number] 02/28 [place] [facility] [place] [facility] Inpatient Encounter [id number] 03/01 [facility] [place] [facility] Inpatient Encounter [id number] SYSTEM,CIS -[facility] 03/01 [facility] [place] [facility] Inpatient Encounter [id number] 03/01 [facility] PSYCH DIAGNOSTIC EVALUATION [id number] [id number] Diagnos is: ICD-10- CM F10.20 Alcohol depende nce, uncompl icated Ellie YANCEY 03/01 [facility] [place] [facility] Inpatient Encounter [id number] 03/01 [facility] [place] [facility] Inpatient Encounter [id number] 03/01 [facility] [place] [facility] HOSP IP/OBS DSCHRG MGMT >30 60219-7.61 [id number] Diagnos is: ICD-10- CM F10.951 Alcohol use, unsp w alcoh-i nduce psych disorde r w halluci n DENISHA,N OAH I 03/01 [facility] [place] [facility] Outpatient Encounter [id number] 03/01 [facility] [place] [facility] Outpatient Encounter [id number] SYSTEM,CIS -ARK 03/02 [facility] [place] [facility] Outpatient Encounter [id number] 03/04 [facility] [place] [facility] Outpatient Encounter [id number] 03/19 [facility] Outpatient Encounter [id number] 03/24 [facility] Outpatient Encounter [id number] 03/24 [facility] Outpatient Encounter [id number] 03/24 [facility] Outpatient Encounter [id number] 03/25 [facility] PSY EVALUATION OF RECORDS [id number] [id number] Diagnos is: ICD-10- CM K76.0 Fatty (change of) liver, not elsewhe re classif ied MARCO HERNÁNDEZ M 03/25 [facility] Outpatient Encounter [id number] 03/25 [facility] Outpatient Encounter [id number] [id number] 03/25 [facility] PSYTX W PT 45 MINUTES [id number] [id number] Diagnos is: ICD-10- CM F10.20 Alcohol depende nce, uncompl icated FRANK CALDERON 03/29 [facility] Inpatient Encounter [id number] [id number] 03/30 [facility] MTMS BY PHARM EST 15 MIN [id number] [id number] Diagnos is: ICD-10- CM Z51.81 Encount er for therape utic drug level monitor NEGIN Winter 03/30 [facility] Inpatient Encounter [id number] Admit Reason: dual MIGNON BIRD 03/30 Discharge from inpatient treatment to the [facility] (OPT-SC) [facility] (DOM) [facility] PSYCH DIAGNOSTIC EVALUATION [id number] [id number] Diagnos is: ICD-10- CM F41.1 General ized anxiety disorde r KERI ALVES 03/30 [facility] OFF/OP EST MAY X REQ PHY/QHP [id number] [id number] Diagnos is: ICD-10- CM 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, recurre nt, moderat e JOLENE DUMONT L 03/30 [facility] OFFICE O/P EST HI 40-54 MIN 63908-8. [id number] Diagnos is: ICD-10- CM F10.10 Alcohol abuse, uncompl icated MIGNON BIRD P 03/30 [facility] OFF/OP EST MAY X REQ PHY/QHP 99186-2 [id number] Diagnos is: ICD-10- CM F10.20 Alcohol depende nce, uncompl icated THRALOW,APRIL ISTINE K 03/31 [facility] GROUP HEALTH EDUCATION 64559-7 [id number] Diagnos is: ICD-10- CM 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, recurre nt, moderat e CHRISTINA QUINTERO 03/31 [facility] Outpatient Encounter [id number] CHRISTINA QUINTERO 03/31 [facility] CASE MANAGEMENT 38791-2 [id number] Diagnos is: ICD-10- CM 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, recurre nt, moderat e MARIA ELENA KHANNA RA S 03/31 [facility] GROUP HEALTH EDUCATION 92483-6 [id number] Diagnos is: ICD-10- CM 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, recurre nt, moderat e MARIA ELENA KHANNA RA S 04/01 [facility] BRIEF EMOTIONAL/ BEHAV ASSMT 59038-7 [id number] Diagnos is: ICD-10- CM 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, recurre nt, moderat e ASSELN,TAR A L 04/01 [facility] PSYTX W PT 60 MINUTES 65454-2 [id number] Diagnos is: ICD-10- CM 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, recurre nt, moderat e ASSELN,TAR A L 04/01 [facility] GROUP PSYCHOTHER APY 35183-7 [id number] Diagnos is: ICD-10- CM 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, recurre nt, moderat e GUNDERSON,KE LLY A 04/01 [facility] Outpatient Encounter [id number] 04/01 [facility] GROUP HEALTH EDUCATION [id number] [id number] Diagnos is: ICD-10- CM F10.20 Alcohol depende nce, uncompl icated CLEMENCIA,TA RA S 04/02 [facility] GROUP PSYCHOTHER APY 60200-8 [id number] Diagnos is: ICD-10- CM 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, recurre nt, moderat e GUNDERSON,KE LLY A 04/02 [facility] PT EDUCATION NOC GROUP 80039-1 [id number] Diagnos is: ICD-10- CM F10.10 Alcohol abuse, uncompl icated GALLANT,ST EPHENIE A 04/03 [facility] GROUP THERAPEUTI C PROCEDURES 81132-8 [id number] RODRICK ALVARADO 04/03 [facility] GROUP PSYCHOTHER APY 83507-2 [id number] Diagnos is: ICD-10- CM F43.10 Post-tr aumatic stress disorde r, unspeci fied TINIUS,MARY OTHY P 04/03 [facility] PT EDUCATION NOC GROUP 41481-2 [id number] Diagnos is: ICD-10- CM F10.10 Alcohol abuse, uncompl icated SUZANNA DIAZ 04/04 [facility] PT EDUCATION NOC GROUP 85227-9 [id number] Diagnos is: ICD-10- CM F10.10 Alcohol abuse, uncompl icated SUZANNA DIAZ 04/04 [facility] GROUP THERAPEUTI C PROCEDURES 82733-7 [id number] Diagnos is: ICD-10- CM Z72.89 Other problem s related to lifesty RODRICK Sr 04/04 [facility] GROUP HEALTH EDUCATION 47907-7.65 [id number] Diagnos is: ICD-10- CM F10.10 Alcohol abuse, uncompl icated MARIA ELENA KHANNA RA 04/05 [facility] GROUP PSYCHOTHER APY 35170-3 [id number] Diagnos is: ICD-10- CM F43.10 Post-tr aumatic stress disorde r, unspeci fied RENATE BAXTER 04/05 [facility] GROUP PSYCHOTHER APY 14538-3 [id number] Diagnos is: ICD-10- CM 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, recurre nt, moderat e JAMESON GUNDERSON A 04/05 [facility] PT EDUCATION NOC GROUP 38943-7 [id number] Diagnos is: ICD-10- CM F10.10 Alcohol abuse, uncompl icated Johnny CRUZ 04/05 [facility] GROUP HEALTH EDUCATION 18014-6 [id number] Diagnos is: ICD-10- CM F10.10 Alcohol abuse, uncompl icated MARIA ELENA KHANNA RA 04/06 [facility] GROUP PSYCHOTHER APY 68468-0 [id number] Diagnos is: ICD-10- CM 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, recurre nt, moderat e JAMESON GUNDERSON A 04/06 [facility] GROUP THERAPEUTI C PROCEDURES 96517-1 [id number] Diagnos is: ICD-10- CM Z72.89 Other problem s related to lifesty GARETT Wang DAPHNEY Figueroa 04/06 [facility] GROUP HEALTH EDUCATION 65194-1 [id number] Diagnos is: ICD-10- CM F10.10 Alcohol abuse, uncompl MARIA ELENA Paul RA 04/07 [facility] GROUP PSYCHOTHER APY 64270-5 [id number] Diagnos is: ICD-10- CM F43.10 Post-tr aumatic stress disorde r, unspeci fied RENATE BAXTER 04/07 [facility] Outpatient Encounter [id number] ANYI SIMMONS 04/07 [facility] TELEHEALTH FACILITY FEE 72344-0 [id number] Diagnos is: ICD-10- CM F10.20 Alcohol depende nce, uncompl icaJOHN Gutiérrez 04/07 [facility] PSYCH DIAG EVAL W/MED SRVCS 44128-7 [id number] Diagnos is: ICD-10- CM F10.20 Alcohol depende nce, uncompl JOHN Garcia 04/07 [facility] GROUP HEALTH EDUCATION 02500-3 [id number] Diagnos is: ICD-10- CM F10.10 Alcohol abuse, uncompl MARIA ELENA Paul RA 04/08 [facility] GROUP PSYCHOTHER APY 16572-8 [id number] Diagnos is: ICD-10- CM 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, recurre nt, moderat e GUNDERSONJAMESON PARKER A 04/08 [facility] GROUP THERAPEUTI C PROCEDURES 22628-0 [id number] Diagnos is: ICD-10- CM Z72.89 Other problem s related to lifesty ha BLANCHARDSHEILARODRICK HARRSI 04/08 [facility] GROUP HEALTH EDUCATION 85647-1 [id number] Diagnos is: ICD-10- CM F10.10 Alcohol abuse, uncompl icated MARIA ELENA KHANNA RA 04/09 [facility] GROUP PSYCHOTHER APY 72191-3 [id number] Diagnos is: ICD-10- CM F43.10 Post-tr aumatic stress disorde r, unspeci fied RENATE BAXTER 04/09 [facility] GROUP PSYCHOTHER APY 90065-3 [id number] Diagnos is: ICD-10- CM F33.1 Major depress laurle disorde r, recurre nt, moderat e JAMESON GUNDERSON A 04/09 [facility] Outpatient Encounter 04648-2 [id number] 04/09 [facility] PT EDUCATION NOC GROUP 73821-4 [id number] Diagnos is: ICD-10- CM F10.10 Alcohol abuse, uncompl icated GRIS PATEL 04/10 [facility] Outpatient Encounter 94058-7 [id number] 04/10 [facility] GROUP PSYCHOTHER APY 95571-3 [id number] Diagnos is: ICD-10- CM 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, recurre nt, moderat e GRAHEK-JER VILLEGAS 04/12 [facility] GROUP PSYCHOTHER APY 00744-6 [id number] Diagnos is: ICD-10- CM F43.10 Post-tr aumatic stress disorde r, unspeci fiKERI Jackson 04/12 [facility] GROUP PSYCHOTHER APY 21321-1.65 [id number] Diagnos is: ICD-10- CM F43.10 Post-tr aumatic stress disorde r, unspeci fied VEERENATE 04/12 [facility] GROUP PSYCHOTHER APY 68056-9 [id number] Diagnos is: ICD-10- CM 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, recurre nt, moderat e JAMESON GUNDERSON 04/12 [facility] HEALTH EDUCATION 49510-3 [id number] Diagnos is: ICD-10- CM F10.10 Alcohol abuse, uncompl icated MARIA ELENA KHANNA RA S 04/13 [facility] PSYCHOTHER APY 31366-0.65 [id number] Diagnos is: ICD-10- CM 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, recurre nt, moderat e HIMRICH,[facility] 04/13 [facility] SERV 63827-4 [id number] Diagnos is: ICD-10- CM 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 APRIL Ferraro 04/13 [facility] HEALTH EDUCATION 43257-2 [id number] Diagnos is: ICD-10- CM F10.10 Alcohol abuse, uncompl icaMARIA ELENA Escalante RA S 04/14 [facility] PSYCHOTHER APY 42075-3.65 [id number] Diagnos is: ICD-10- CM 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, recurre nt, moderat e HIMRICH,[facility] 04/14 [facility] PSYCHOTHER APY 54685-7 [id number] Diagnos is: ICD-10- CM F43.10 Post-tr aumatic stress disorde r, unspeci fied RENATE BAXTER 04/14 [facility] GROUP PSYCHOTHER APY 26502-5 [id number] Diagnos is: ICD-10- CM 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, recurre nt, moderat e JAMESON GUNDERSON A 04/14 [facility] GROUP PSYCHOTHER APY 14918-7 [id number] Diagnos is: ICD-10- CM F33.1 Major depress alurel disorde r, recurre nt, moderat e GRAHEK-POR JER PEARCE J 04/15 [facility] HLTH BHV IVNTJ GRP 1ST 30 [id number] Diagnos is: ICD-10- CM Z56.9 Unspeci fied problem s related to employm ent BRIANNA,HEN RY B 04/15 [facility] GROUP PSYCHOTHER APY 78492-9 [id number] Diagnos is: ICD-10- CM F43.10 Post-tr aumatic stress disorde r, unspeci fied RENATE BAXTER 04/15 [facility] TELEHEALTH FACILITY FEE [id number] Diagnos is: ICD-10- CM 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, recurre nt, moderat e JOHN RUSSELL 04/15 [facility] OFFICE O/P EST MOD 30-39 MIN 57126-4 [id number] Diagnos is: ICD-10- CM 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, recurre nt, moderat e JOHN RUSSELL 04/15 [facility] GROUP PSYCHOTHER APY 75747-5 [id number] Diagnos is: ICD-10- CM F43.10 Post-tr aumatic stress disorde r, unspeci fied JAMESON GUNDERSON A 04/15 [facility] GROUP THERAPEUTI C PROCEDURES 37051-565 [id number] Diagnos is: ICD-10- CM Z72.89 Other problem s related to lifesty le TIM CORONA S 04/16 [facility] PT EDUCATION NOC GROUP 33481-0 [id number] Diagnos is: ICD-10- CM F10.988 Alcohol use, unspeci fied with other alcohol -induce d disorde r PRISCILLA MCLEAN M 04/17 [facility] GROUP THERAPEUTI C PROCEDURES 06297-9 [id number] Diagnos is: ICD-10- CM Z72.89 Other problem s related to lifesty RODRICK Sr 04/18 [facility] GROUP HEALTH EDUCATION 37954-2 [id number] Diagnos is: ICD-10- CM F10.10 Alcohol abuse, uncompl icated MARIA ELENA KHANNA RA S 04/19 [facility] GROUP PSYCHOTHER APY 42990-265 [id number] Diagnos is: ICD-10- CM F43.10 Post-tr aumatic stress disorde r, unspeci fied RENATE BAXTER M 04/19 [facility] GROUP PSYCHOTHER APY 31664-0.65 [id number] Diagnos is: ICD-10- CM 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, recurre nt, moderat e JAMESON GUNDERSON A 04/19 [facility] HELP DESK ASSOCIATE ASSESSMENT 21396-365 [id number] Diagnos is: ICD-10- CM 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 KATALINA Cota 04/19 [facility] CASE MANAGEMENT 82675-7 [id number] Diagnos is: ICD-10- CM F10.20 Alcohol depende nce, uncompl icated MARIA ELENA KHANNA RA S 04/19 [facility] Outpatient Encounter 43216-0.65 [id number] MARIA ELENA KHANNA RA S 04/19 [facility] Outpatient Encounter 34548-1. [id number] MARIA ELENA KHANNA RA S 04/19 [facility] Outpatient Encounter 98206-5.65 [id number] MARIA ELENA KHANNA RA S 04/19 [facility] GROUP HEALTH EDUCATION 06514-6 [id number] Diagnos is: ICD-10- CM F10.10 Alcohol abuse, uncompl icated MARIA ELENA KHANNA RA S 04/20 [facility] GROUP PSYCHOTHER APY 11228-6 [id number] Diagnos is: ICD-10- CM 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, recurre nt, moderat e GUNDERSON,KE LLY A 04/20 [facility] GROUP PSYCHOTHER APY 50215-5 [id number] Diagnos is: ICD-10- CM 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, recurre nt, moderat e ASSELN,TAR A L 04/20 [facility] Outpatient Encounter 63730-6 [id number] FOSSUM,BOBBY LLEY L 04/20 [facility] GROUP THERAPEUTI C PROCEDURES 64985-4 [id number] Diagnos is: ICD-10- CM Z72.89 Other problem s related to lifesty RODRICK Sr 04/20 [facility] GROUP HEALTH EDUCATION 79855-2 [id number] Diagnos is: ICD-10- CM F10.10 Alcohol abuse, uncompl icated MARIA ELENA KHANNA RA S 04/21 [facility] GROUP PSYCHOTHER APY 71521-6 [id number] Diagnos is: ICD-10- CM F43.10 Post-tr aumatic stress disorde r, unspeci fiRENATE Cowart M 04/21 [facility] GROUP PSYCHOTHER APY 36349-7 [id number] Diagnos is: ICD-10- CM 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, recurre nt, moderat e GUNDERSON,KE LLY A 04/21 [facility] GROUP HEALTH EDUCATION 61080-5 [id number] Diagnos is: ICD-10- CM F10.10 Alcohol abuse, uncompl icated MARIA ELENA KHANNA RA S 04/22 [facility] TELEHEALTH FACILITY FEE 16805-3 [id number] Diagnos is: ICD-10- CM 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, recurre nt, moderat e JOHN RUSSELL 04/22 [facility] OFFICE O/P EST MOD 30-39 MIN 23496-2 [id number] Diagnos is: ICD-10- CM 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, recurre nt, moderat e JOHN RUSSELL 04/22 [facility] GROUP PSYCHOTHER APY 85632-1 [id number] Diagnos is: ICD-10- CM F43.10 Post-tr aumatic stress disorde r, unspeci fied GUNDERSON,KE LLY A 04/22 [facility] GROUP PSYCHOTHER APY 16483-3 [id number] Diagnos is: ICD-10- CM 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, recurre nt, moderat e ASSELN,TAR A L 04/22 [facility] Outpatient Encounter 56723-9 [id number] BOBBY PEÑA 04/22 [facility] GROUP HEALTH EDUCATION 48039-2 [id number] Diagnos is: ICD-10- CM F10.10 Alcohol abuse, uncompl icated MARIA ELENA KHANNA RA S 04/23 [facility] GROUP PSYCHOTHER APY 28439-3 [id number] Diagnos is: ICD-10- CM F43.10 Post-tr aumatic stress disorde r, unspeci fied VEEDEBBIEO JENNIFER M 04/23 [facility] GROUP PSYCHOTHER APY 92118-6 [id number] Diagnos is: ICD-10- CM 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, recurre nt, moderat e JAMESON GUNDERSON A 04/23 [facility] GROUP HEALTH EDUCATION 99682-6 [id number] Diagnos is: ICD-10- CM F10.10 Alcohol abuse, uncompl icated CLEMENCIAMARIA ELENA RA S 04/26 [facility] GROUP PSYCHOTHER APY 59273-4 [id number] Diagnos is: ICD-10- CM F43.10 Post-tr aumatic stress disorde r, unspeci fied RADAMES GREENE A 04/26 [facility] GROUP PSYCHOTHER APY 88750-7 [id number] Diagnos is: ICD-10- CM F43.10 Post-tr aumatic stress disorde r, unspeci fied VEEDEBBIEO JENNIFER M 04/26 [facility] Outpatient Encounter 81447-6 [id number] 04/26 [facility] GROUP HEALTH EDUCATION 08875-1 [id number] Diagnos is: ICD-10- CM F10.10 Alcohol abuse, uncompl icated MARIA ELENA KHANNA RA S 04/27 [facility] GROUP PSYCHOTHER APY 25541-5 [id number] Diagnos is: ICD-10- CM F43.10 Post-tr aumatic stress disorde r, unspeci fied BLACK,RADAMES A 04/27 [facility] GROUP PSYCHOTHER APY 12006-0 [id number] Diagnos is: ICD-10- CM 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, recurre nt, moderat e GUNDERSON,KE LLY A 04/27 [facility] GROUP PSYCHOTHER APY 72384-7 [id number] Diagnos is: ICD-10- CM 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, recurre nt, moderat e ASSELN,TAR A L 04/27 [facility] Outpatient Encounter 94190-7 [id number] BOBBY PEÑA L 04/27 [facility] GROUP PSYCHOTHER APY 53403-1 [id number] Diagnos is: ICD-10- CM F43.10 Post-tr aumatic stress disorde r, unspeci fied BLACK,RADAMES A 04/28 [facility] Outpatient Encounter 39683-5 [id number] 04/28 [facility] GROUP HEALTH EDUCATION 14371-6 [id number] Diagnos is: ICD-10- CM F10.10 Alcohol abuse, uncompl icated KREJARAD,TA RA S 04/28 [facility] APY 27386-6 [id number] Diagnos is: ICD-10- CM 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, recurre nt, moderat e GUNDERSON,KE LLY A 04/28 [facility] APY 10360-8 [id number] Diagnos is: ICD-10- CM F43.10 Post-tr aumatic stress disorde r, unspeci fied BLACK,RADAMES A 04/30 [facility] APY [id number] [id number] Diagnos is: ICD-10- CM 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, recurre nt, moderat e LARRYCARL GÓMEZ J 04/30 [facility] APY [id number] [id number] Diagnos is: ICD-10- CM F10.10 Alcohol abuse, uncompl icated GUNDERSON,KE LLY A 04/30 [facility] APY 16683-3.65 [id number] Diagnos is: ICD-10- CM 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, recurre nt, moderat e GUNDERSON,KE LLY A 04/30 [facility] CASE MANAGEMENT [id number] Diagnos is: ICD-10- CM 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, recurre nt, moderat e GUNDERSON,KE LLY A 04/30 [facility] APY 85999-5 [id number] Diagnos is: ICD-10- CM 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, recurre nt, moderat e GRAHEK-JER VILLEGASY J 05/03 [facility] APY 62457-3 [id number] Diagnos is: ICD-10- CM 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, recurre nt, moderat e GUNDERSON,KE LLY A 05/03 [facility] APY 96407-4 [id number] Diagnos is: ICD-10- CM 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, recurre nt, moderat e GUNDERSON,KE LLY A 05/03 [facility] CASE MANAGEMENT [id number] Diagnos is: ICD-10- CM F10.10 Alcohol abuse, uncompl icated MARIA ELENA KHANNA RA S 05/03 [facility] APY 78772-3 [id number] Diagnos is: ICD-10- CM 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, recurre nt, moderat e GRAHEK-POR KKONEN,JER MANOJ J 05/04 [facility] APY 51368-9 [id number] Diagnos is: ICD-10- CM 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, recurre nt, moderat e GUNDERSON,KE LLY A 05/04 [facility] PSYTX W PT 45 MINUTES [id number] Diagnos is: ICD-10- CM 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, recurre nt, moderat e GRAHEK-POR KKONEN,JER MANOJ J 05/04 [facility] GROUP PSYCHOTHER APY 04802-5 [id number] Diagnos is: ICD-10- CM 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, recurre nt, moderat e GUNDERSON,KE LLY A 05/04 [facility] GROUP PSYCHOTHER APY 81060-1 [id number] Diagnos is: ICD-10- CM 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, recurre nt, moderat e ASSELN,TAR A L 05/04 [facility] Outpatient Encounter [id number] BOBBY PEÑA L 05/04 [facility] GROUP THERAPEUTI C PROCEDURES 13881-3.65 [id number] Diagnos is: ICD-10- CM Z72.89 Other problem s related to lifesty ha IVÁNMEGHANAYani SURESHRODRICK 05/04 [facility] GROUP HEALTH EDUCATION 44061-8.65 [id number] Diagnos is: ICD-10- CM 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, recurre nt, moderat e KREMERS,TA RA S 05/05 [facility] GROUP PSYCHOTHER APY 10842-6.65 [id number] Diagnos is: ICD-10- CM 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, recurre nt, moderat e GUNDERSON,KE LLY A 05/05 [facility] GROUP PSYCHOTHER APY 68241-3.65 [id number] Diagnos is: ICD-10- CM 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, recurre nt, moderat e GUNDERSON,KE LLY A 05/05 [facility] GROUP PSYCHOTHER APY 17602-9.65 [id number] Diagnos is: ICD-10- CM 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, recurre nt, moderat e HARSH-JER VILLEGAS J 05/06 [facility] GROUP PSYCHOTHER APY 14774-2 [id number] Diagnos is: ICD-10- CM 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, recurre nt, moderat e GUNDERSON,KE LLY A 05/06 [facility] TELEHEALTH FACILITY FEE 01356-3.65 [id number] Diagnos is: ICD-10- CM 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, recurre nt, JOHN Johnson 05/06 [facility] OFFICE O/P EST MOD 30-39 MIN 21805-2.65 [id number] Diagnos is: ICD-10- CM 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, recurre nt, moderat e JOHN RUSSELL 05/06 [facility] GROUP PSYCHOTHER APY 75987-7 [id number] Diagnos is: ICD-10- CM 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, recurre nt, moderat e GUNDERSON,KE LLY A 05/06 [facility] Outpatient Encounter 44024-8.65 [id number] 05/06 [facility] Outpatient Encounter 82537-3.65 [id number] 05/06 [facility] HEALTH EDUCATION 02227-7 [id number] Diagnos is: ICD-10- CM F10.10 Alcohol abuse, uncompl icated MARIA ELENA KHANNA RA 05/07 [facility] PSYCHOTHER APY 75305-2 [id number] Diagnos is: ICD-10- CM 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, recurre nt, moderat e GUNDERSON,KE LLY A 05/07 [facility] GROUP PSYCHOTHER APY 36528-7. [id number] Diagnos is: ICD-10- CM 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, recurre nt, moderat e GUNDERSON,KE LLY A 05/07 [facility] GROUP PSYCHOTHER APY 90177-5. [id number] Diagnos is: ICD-10- CM 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, recurre nt, moderat e GRAHEK-POR PRINCEONENJER J 05/10 [facility] GROUP PSYCHOTHER APY 02122-4. [id number] Diagnos is: ICD-10- CM 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, recurre nt, moderat e GUNDERSON,KE LLY A 05/10 [facility] Outpatient Encounter 28819-3.61 [id number] 05/10 [facility] GROUP PSYCHOTHER APY 97621-6 [id number] Diagnos is: ICD-10- CM 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, recurre nt, moderat e JAMESON GUNDERSON A 05/10 [facility] HEALTH EDUCATION 55900-8 [id number] Diagnos is: ICD-10- CM F10.10 Alcohol abuse, uncompl icaMARIA ELENA Escalante RA 05/11 [facility] GROUP PSYCHOTHER APY 54476-7.65 [id number] Diagnos is: ICD-10- CM 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, recurre nt, moderat e JAMESON GUNDERSON A 05/11 [facility] OFFICE O/P EST LOW 20-29 MIN 02573-7.65 [id number] Diagnos is: ICD-10- CM K76.0 Fatty (change of) liver, not elsewhe re classif ied MIGNON BIRD 05/11 [facility] Outpatient Encounter 37001-0 [id number] 05/11 [facility] CASE MANAGEMENT 50153-7 [id number] Diagnos is: ICD-10- CM F10.129 Alcohol abuse with intoxic ation, unspeci fied FRANK CALDERON 05/11 [facility] TELEHEALTH FACILITY FEE 67930-1.65 [id number] Diagnos is: ICD-10- CM F43.10 Post-tr aumatic stress disorde r, unspeci fied JER HARRISON 05/11 [facility] GROUP HEALTH EDUCATION 81012-6 [id number] Diagnos is: ICD-10- CM F10.10 Alcohol abuse, uncompl icated MARIA ELENA KHANNA RA 05/12 [facility] GROUP PSYCHOTHER APY 12675-8 [id number] Diagnos is: ICD-10- CM 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, recurre nt, moderat e GUNDERSON,KE LLY A 05/12 [facility] GROUP PSYCHOTHER APY 21478-9 [id number] Diagnos is: ICD-10- CM 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, recurre nt, moderat e GUNDERSON,KE LLY A 05/12 [facility] SELF-HELP/ PEER SVC PER 15MIN 98871-6 [id number] Diagnos is: ICD-10- CM F10.20 Alcohol depende nce, uncompl icated PJ CALL PH M 05/12 [facility] Outpatient Encounter 69844-6.65 [id number] 05/12 [facility] GROUP PSYCHOTHER APY 20769-9. [id number] Diagnos is: ICD-10- CM 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, recurre nt, moderat e GRAHEK-POR KKONEN,JER MANOJ J 05/13 [facility] GROUP PSYCHOTHER APY 99021-7 [id number] Diagnos is: ICD-10- CM 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, recurre nt, moderat e GUNDERSON,KE LLY A 05/13 [facility] PSYTX W PT 45 MINUTES 45971-3 [id number] Diagnos is: ICD-10- CM 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, recurre nt, moderat e GRAHEK-POR KKONEN,JER MANOJ J 05/13 [facility] GROUP PSYCHOTHER APY 57335-6 [id number] Diagnos is: ICD-10- CM 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, recurre nt, moderat e JAMESON GUNDERSONY A 05/13 [facility] PSYTX W PT 30 MINUTES 35397-5.65 [id number] Diagnos is: ICD-10- CM F41.9 Anxiety disorde r, unspeci fied JAMESON GUNDERSON A 05/13 [facility] Outpatient Encounter 08312-3.65 [id number] MARIA ELENA KHANNA RA 05/14 [facility] Outpatient Encounter 56753-7.65 [id number] 05/14 [facility] Outpatient Encounter 23093-1.61 [id number] 05/14 [facility] Outpatient Encounter 89357-3.65 [id number] 05/18 [facility] Outpatient Encounter 16601-3.65 [id number] 05/19 [facility] PSYTX W PT 45 MINUTES 69890-1.61 [id number] Diagnos is: ICD-10- CM F33.8 Other recurre nt depress laurel disorde rs FRANK CALDERON 05/20 [facility] Outpatient Encounter 40541-1.65 [id number] 05/21 [facility] OFFICE O/P EST MOD 30-39 MIN 43429-4.61 [id number] Diagnos is: ICD-10- CM F33.8 Other recurre nt depress laurel disorde rs AGUSTIN MATIAS 05/26 [facility] Outpatient Encounter 06132-2.61 [id number] 05/27 [facility] Outpatient Encounter 89203-3.61 [id number] 06/07 [facility] Outpatient Encounter 57800-3.61 [id number] 06/11 [place] [facility] [place] [facility] Outpatient Encounter 56377-8.61 [id number] [place] YANCEY 06/16 [place] [facility] [place] [facility] Outpatient Encounter 94752-1.61 [id number] 06/17 [place] [facility] PSYTX W PT 45 MINUTES 08303-2.61 [id number] Diagnos is: ICD-10- CM F33.8 Other recurre nt depress laurel disorde rs FRANK CALDERON 06/17 [facility] [place] [facility] PSYTX W PT 45 MINUTES 90376-2.61 [id number] Diagnos is: ICD-10- CM F10.20 Alcohol depende nce, uncompl icated FRANK CALDERON 06/22 [facility] PSYTX W PT W E/M 30 MIN 30825-4.61 [id number] Diagnos is: ICD-10- CM F33.8 Other recurre nt depress laurel disorde rs AGUSTIN MATIAS 06/23 [facility] Outpatient Encounter 00501-3.65 [id number] 06/25 [facility] [place] [facility] Outpatient Encounter 50709-4.61 [id number] 07/01 [facility] [place] [facility] Outpatient Encounter 55781-0.61 [id number] 07/01 [place] [facility] [place] [facility] Outpatient Encounter 68518-5.61 [id number] 07/01 [facility] [place] [facility] Outpatient Encounter 34165-5.61 [id number] 07/01 [facility] QNHP OL DIG ASSMT&MGMT 21+ 99887-6.61 [id number] Diagnos is: ICD-10- CM Z13.79 Encntr for oth screeni ng for genetic and chromso ml anomali samuel DOKEO 07/02 [facility] PSYTX W PT 45 MINUTES 84264-1.61 [id number] Diagnos is: ICD-10- CM F10.20 Alcohol depende nce, uncompl icated MRNAK-FRANK HAAS 07/05 [facility] Outpatient Encounter 33267-2.61 [id number] 07/05 [facility] Outpatient Encounter 08440-5.61 [id number] 07/05 [facility] Outpatient Encounter 08143-1.61 [id number] Carolina YANCEY 07/13 [facility] Outpatient Encounter 93755-7.61 [id number] 07/14 [facility] Outpatient Encounter 07808-1.61 [id number] 07/21 [facility] Outpatient Encounter 06719-2.61 [id number] DICK JUNG 07/22 [facility] Outpatient Encounter 45896-5.61 [id number] 07/23 [facility] Outpatient Encounter 50517-4.61 [id number] RENZO,LOR -ARK 07/24 [facility] 1ST HOSP IP/OBS HIGH 75 41653-5.61 [id number] Diagnos is: ICD-10- CM F43.10 Post-tr aumatic stress disorde r, unspeci MAGGIE Smith 07/24 [facility] EMERGENCY DEPT VISIT MOD MDM 47382-4.61 [id number] Diagnos is: ICD-10- CM F10.20 Alcohol depende nce, uncompl icated MADDALI,SE ALETA 07/24 [facility] 1ST HOSP IP/OBS HIGH 75 84671-9.61 [id number] Diagnos is: ICD-10- CM F43.10 Post-tr aumatic stress disorde r, unspeci fied LOGAN,HE ATHER E 07/24 [facility] Detoxifica tion Services for Substance Abuse Treatment 81003-5.61 [id number] Admit Reason: ETOH S/I TEAM,MED TWO 07/24 Regular discharge from inpatient treatment. [facility] 1ST HOSP IP/OBS MODERATE 55 02182-9.61 [id number] JANA MANZANARES A 07/24 [place] [facility] Inpatient Encounter 22318-6.61 [id number] 07/24 [facility] Inpatient Encounter 29592-3.61 [id number] JAKUB BIRSENO A 07/24 [facility] QNHP OL DIG ASSMT&MGMT 11-20 42172-0.61 [id number] Diagnos is: ICD-10- CM Z72.0 Tobacco use COLLINISH Figueroa 07/24 [facility] Inpatient Encounter 86136-4.61 [id number] JAKUB BRISENO 07/24 [place] [facility] Inpatient Encounter 63283-9.61 [id number] RENZO,LOR -REK 07/25 [facility] Inpatient Encounter 17978-8.61 [id number] Sourav DE LEÓN 07/25 [facility] Inpatient Encounter 62730-5.61 [id number] KELLI STEPHENS Albina 07/25 [place] [facility] [place] [facility] Outpatient Encounter 30106-8.61 [id number] BILL RO 07/25 [place] [facility] [place] [facility] 1ST HOSP IP/OBS MODERATE 55 01682-0.61 [id number] Diagnos is: ICD-10- CM F43.10 Post-tr aumatic stress disorde r, unspeci fiBILL Ortiz 07/25 [place] [facility] [place] [facility] Inpatient Encounter 10019-9.61 [id number] 07/25 [place] [facility] [place] [facility] Inpatient Encounter 51606-9.61 [id number] 07/25 [place] [facility] [place] [facility] HOSP IP/OBS DSCHRG MGMT >30 40361-7.61 [id number] JANA MANZANARES 07/25 [place] [facility] [place] [facility] Inpatient Encounter [id number] [id number] 07/25 [facility] [place] [facility] Outpatient Encounter 52591-2.61 [id number] 07/27 [place] [facility] [place] [facility] Outpatient Encounter 26415-9.61 [id number] 07/27 [place] [facility] [place] [facility] PRO PHONE CALL 5-10 MIN 28923-9.61 [id number] Diagnos is: ICD-10- CM F43.10 Post-tr aumatic stress disorde r, unspeci JANA Welch 07/28 [facility] [place] [facility] Outpatient Encounter 60024-4.61 [id number] 07/28 [place] [facility] [place] [facility] Outpatient Encounter 36757-6.61 [id number] 07/29 [place] [facility] [place] [facility] PSYTX W PT 45 MINUTES 28847-4.61 [id number] Diagnos is: ICD-10- CM F10.20 Alcohol depende nce, uncompl icated INGE CALDERONFER 08/02 [place] [facility] [place] [facility] Outpatient Encounter [id number] [id number] 08/04 [place] [facility] [place] [facility] Outpatient Encounter 76729-8.61 [id number] 08/10 [place] [facility] [place] [facility] Outpatient Encounter 42716-4.61 [id number] 08/15 [place] [facility] [place] [facility] Outpatient Encounter 94449-1.61 [id number] ANYI HERNANDEZ 08/18 [place] [facility] [place] [facility] Outpatient Encounter 84054-8.61 [id number] 08/22 [facility] [place] [facility] Outpatient Encounter 58497-2.61 [id number] [place] YANCEY 08/22 [facility] HC PRO PHONE CALL 5-10 MIN 20838-8.61 [id number] Diagnos is: ICD-10- CM F43.10 Post-tr aumatic stress disorde r, unspeci fied JANA STEVENSON 08/23 [facility] [place] [facility] Outpatient Encounter 37566-4.61 [id number] 08/24 [place] [facility] [place] [facility] Outpatient Encounter 52556-4.61 [id number] MARIA G DOMINGO 08/25 [facility] [place] [facility] Outpatient Encounter 90204-1.61 [id number] VANDA MCGREGOR 08/26 [place] [facility] [place] [facility] Outpatient Encounter 86407-8.61 [id number] VANDA MCGREGOR 08/26 [facility] [place] [facility] Outpatient Encounter 40063-7.61 [id number] 08/26 [facility] [place] [facility] Outpatient Encounter 06954-8.61 [id number] AGUSTIN MATIAS 09/12 [facility] [place] [facility] Outpatient Encounter [id number] [id number] 09/12 [facility] [place] [facility] Outpatient Encounter [id number] [id number] [place] YANCEY 09/16 [facility] [place] [facility] Outpatient Encounter 21043-8.61 [id number] JAMAICA BOYER 09/23 [facility] [place] [facility] Outpatient Encounter [id number] [id number] 09/26 [facility] [place] [facility] Outpatient Encounter [id number] [id number] 09/28 [facility] OFFICE O/P EST MOD 30 MIN 88782-5.61 [id number] Diagnos is: ICD-10- CM F10.129 Alcohol abuse with intoxic ation, unspeci fied AGUSTIN MATIAS 09/29 [facility] [place] [facility] Outpatient Encounter [id number] [id number] 09/30 [facility] Outpatient Encounter 79602-6.61 [id number] ROBERT SPRAGUE 10/10 [facility] Outpatient Encounter 14101-9.65 [id number] 10/15 [facility] NURSING ASSESSMENT /EVALUATN 64578-6.65 [id number] Diagnos is: ICD-10- CM F10.10 Alcohol abuse, uncompl icated HILARY KUMAR 10/15 [facility] Outpatient Encounter [id number] [id number] 10/16 [facility] Outpatient Encounter 63166-7.65 [id number] Diagnos is: ICD-10- CM F10.10 Alcohol abuse, uncompl icated MIKA ROMERO CA A 10/16 [facility] Detoxifica tion Services for Substance Abuse Treatment 08403-9.65 [id number] Admit Reason: DETOX ASHLEY ALARCON 10/16 Discharge from inpatient treatment to the [facility]. [facility] Inpatient Encounter 74809-3.65 [id number] 10/16 [facility] Inpatient Encounter 92964-2.65 [id number] 10/16 [facility] 1ST HOSP IP/OBS MODERATE 55 91956-3.65 [id number] Diagnos is: ICD-10- CM F10.10 Alcohol abuse, uncompl icated MIKA ROMERO CA A 10/16 [facility] Inpatient Encounter 27130-6.65 [id number] 10/16 [facility] Inpatient Encounter 41846-9.65 [id number] 10/16 [facility] TELEHEALTH FACILITY FEE 64686-0.65 [id number] Diagnos is: ICD-10- CM F90.9 Attenti on-defi cit hyperac tivity disorde r, unspeci fied type BITNER,HUB ERT P 10/16 [facility] 1ST HOSP IP/OBS HIGH 75 52134-6.65 [id number] Diagnos is: ICD-10- CM F90.9 Attenti on-defi cit hyperac tivity disorde r, unspeci fied type BITNER,HUB ERT P 10/16 [facility] HELP DESK ASSOCIATE ASSESSMENT 06683-6.65 [id number] Diagnos is: ICD-10- CM 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 JOYA Thomas 10/16 [facility] SELF-HELP/ PEER SVC PER 15MIN 73572-3.65 [id number] Diagnos is: ICD-10- CM 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, recurre nt, Johana Smith 10/17 [facility] QNHP OL DIG ASSMT&MGMT 04-26 85687-2.65 [id number] Diagnos is: ICD-10- CM 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, recurre nt, moderat NAYAN Haynes 10/17 [facility] TELEHEALTH FACILITY FEE 70270-6.65 [id number] Diagnos is: ICD-10- CM F10.20 Alcohol depende nce, uncompl icated JOHN RUSSELL 10/17 [facility] SBSQ HOSP IP/OBS HIGH 50 44280-0.65 [id number] Diagnos is: ICD-10- CM F10.20 Alcohol depende nce, uncompl icaJOHN Gutiérrez 10/17 [facility] SELF-HELP/ PEER SVC PER 15MIN 30137-7.65 [id number] Diagnos is: ICD-10- CM 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, recurre nt, Johana Smith 10/17 [facility] GROUP THERAPEUTI C PROCEDURES 22616-5.65 [id number] Diagnos is: ICD-10- CM Z72.89 Other problem s related to lifesty GARETT Wang 10/174 [facility] ECG/REVIEW INTERPRET ONLY 88274-5.65 [id number] Diagnos is: ICD-10- CM Z13.6 Encount er for screeni ng for cardiov ascular disorde rs MAO SEXTON 10/17 [facility] Inpatient Encounter 50084-1.65 [id number] 10/17 [facility] SELF-HELP/ PEER SVC PER 15MIN 61715-3.65 [id number] Diagnos is: ICD-10- CM 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, recurre nt, Johana Smith 10/18 [facility] TELEHEALTH FACILITY FEE 16142-565 [id number] Diagnos is: ICD-10- CM F10.10 Alcohol abuse, uncompl icated RAUL GIMENEZ MARGUERITE 10/18 [facility] SBSQ HOSP IP/OBS SF/LOW 25 98541-9.65 [id number] Diagnos is: ICD-10- CM F10.10 Alcohol abuse, uncompl icated RAUL GIMENEZ EMI MAGRUERITE 10/18 [facility] PSYTX W PT 30 MINUTES 92691-8.65 [id number] Diagnos is: ICD-10- CM F43.10 Post-tr aumatic stress disorde r, unspeci fied STAGRUPO CHU RGAN A 10/18 [facility] PSYCH DIAGNOSTIC EVALUATION 91121-7.65 [id number] Diagnos is: ICD-10- CM F43.10 Post-tr aumatic stress disorde r, unspeci fied STAVISPiotr,MO RGAN A 10/18 [facility] HOSP IP/OBS DSCHRG MGMT 30/< 76889-3.65 [id number] Diagnos is: ICD-10- CM 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, recurre nt, moderat e DAYTON DE LA CRUZ 10/18 [facility] Inpatient Encounter [id number] [id number] 10/18 [facility] Inpatient Encounter [id number] [id number] 10/18 [facility] QNHP OL DIG ASSMT&MGMT 11-20 73603-3.65 [id number] Diagnos is: ICD-10- CM 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, recurre nt, moderat NAYAN Haynes 10/18 [facility] Inpatient Encounter [id number] [id number] 10/18 [facility] GROUP PSYCHOTHER APY [id number] [id number] Diagnos is: ICD-10- CM F43.10 Post-tr aumatic stress disorde r, unspeci Ellie Bello 10/18 [facility] Outpatient Encounter [id number] [id number] ASHLEY ALARCON 10/18 [facility] Outpatient Encounter [id number] [id number] 10/18 [facility] Outpatient Encounter [id number] [id number] 10/18 [facility] PSY EVALUATION OF RECORDS 41170-4.65 [id number] Diagnos is: ICD-10- CM 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, recurre nt, moderat MARCO Simpson 10[facility] En[facility] [id number] Johnny OSORIO 10/19 [facility] Outpatient Encounter [id number] [id number] 10/19 [facility] OFFICE O/P EST MOD 30 MIN 86679-0.61 [id number] Diagnos is: ICD-10- CM F10.20 Alcohol depende nce, uncompl icated AGUSTIN MATIAS 10/21 [facility] HC PRO PHONE CALL 5-10 MIN [id number] [id number] Diagnos is: ICD-10- CM F10.10 Alcohol abuse, uncompl icated ERIC TONY 10/21 [facility] Outpatient Encounter [id number] [id number] 10/25 [facility] Outpatient Encounter [id number] 10/25 [facility] Outpatient Encounter [id number] [id number] JESUS YOST 10/25 [facility] HC PRO PHONE CALL 5-10 MIN 23645-9.65 [id number] Diagnos is: ICD-10- CM 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, recurre nt, moderat MARCO Simpson 10/26 [facility] HC PRO PHONE CALL 5-10 MIN 24453-9.65 [id number] Diagnos is: ICD-10- CM F10.10 Alcohol abuse, uncompl icated MARCO HERNÁNDEZ 10/27 [facility] Outpatient Encounter [id number] 10/28 [facility] Outpatient Encounter [id number] [id number] 10/28 [facility] Outpatient Encounter [id number] 10/28 [facility] HC PRO PHONE CALL 5-10 MIN [id number] [id number] Diagnos is: ICD-10- CM 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, recurre nt, moderat e LAVIRA,GRUPO LEE C 10/28 [facility] [place] [facility] Outpatient Encounter [id number] SA RA Albina CHESTER 10/30 [facility] Outpatient Encounter [id number] 11/02 [facility] Outpatient Encounter [id number] 11/03 [facility] [place] [facility] SELF-HELP/ PEER SVC PER 15MIN [id number] [id number] Diagnos is: ICD-10- CM F10.129 Alcohol abuse with intoxic ation, unspeci PAUL Sharpe 11/04 [facility] Outpatient Encounter [id number] 11/04 [facility] Outpatient Encounter [id number] 11/07 [facility] [place] [facility] Outpatient Encounter [id number] [id number] 12/06 [place] [facility] [place] [facility] Outpatient Encounter [id number] 12/07 [place] [facility] [place] [facility] Outpatient Encounter [id number] AGUSTIN MATIAS 12/15 [place] [facility] [place] [facility] Outpatient Encounter [id number] 12/27 [place] [facility] [place] [facility] Outpatient Encounter [id number] CARLITOS CHESTER SA 12/27 [place] [facility] [place] [facility] Outpatient Encounter [id number] 12/28 [facility] Outpatient Encounter [id number] 01/12 [facility] Outpatient Encounter [id number] 01/12 [facility] Outpatient Encounter [id number] IVAN WHITMAN 02/08 [facility] Outpatient Encounter [id number] [id number] 02/28 [facility] Outpatient Encounter [id number] [id number] 03/03 [facility] Outpatient Encounter [id number] [id number] SYSTEM,CIS -ARK 03/05 [facility] Outpatient Encounter [id number] SYSTEM,CIS -ARK 03/05 [facility] Outpatient Encounter [id number] ARCELIA CHONG 03/05 [facility] EMERGENCY DEPT VISIT MOD MDM [id number] [id number] Diagnos is: ICD-10- CM F10.129 Alcohol abuse with intoxic ation, unspeci fied MARIANNA LINDSYE 03/05 [facility] IP/OBS CONSLTJ NEW/EST HI 80 [id number] [id number] Diagnos is: ICD-10- CM F10.229 Alcohol depende nce with intoxic ation, unspeci fied DUMKE,HEAT HER SHAUNA 03/05 [facility] Detoxifica tion Services for Substance Abuse Treatment [id number] [id number] Admit Reason: ETOH,SI OMAR SOLO,SUCHAPA 03/06 Regular discharge from inpatient treatment. [facility] Inpatient Encounter [id number] [id number] [facility] -[facility] 03[facility]06 [place] [facility] [place] [facility] En[place] [id number] [id number] 03/06 [place] [facility] [place] [facility] En[place] [id number] [id number] 03/06 [place] [facility] [place] [facility] En[place] [id number] [id number] 03/06 [place] [facility] [place] [facility] En[place] [id number] [id number] 03/06 [place] [facility] [place] [facility] En[facility] [id number] [id number] 03/06 [place] [facility] [place] [facility] IP/OBS CNSLTJ NEW/EST MOD 60 [id number] [id number] Diagnos is: ICD-10- CM F10.20 Alcohol depende nce, uncompl icated Johnny TREVIÑO 03/06 [facility] [place] [facility] 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/ M 80195-3.61 [id number] Antonella CARPENTER 03/06 [place] [facility] [place] [facility] Inpatient Encounter [id number] 03/06 [place] [facility] [place] [facility] Inpatient Encounter [id number] [id number] SYSTEM,CIS -ARK 03/07 [place] [facility] [place] [facility] Inpatient Encounter [id number] [id number] 03/07 [place] [facility] [place] [facility] Inpatient Encounter [id number] [id number] 03/07 [place] [facility] [place] [facility] PROGRAM INTAKE ASSESSMENT [id number] [id number] Diagnos is: ICD-10- CM F43.10 Post-tr aumatic stress disorde r, unspeci kennaed ALPHONSO VILLATORO 03/07 [place] [facility] [place] [facility] PSYTX W PT 30 MINUTES [id number] [id number] Diagnos is: ICD-10- CM F10.20 Alcohol depende nce, uncompl icated APOORVA ASKEW 03/07 [place] [facility] [place] [facility] PROGRAM INTAKE ASSESSMENT [id number] [id number] Diagnos is: ICD-10- CM R45.851 Suicida l ideatio ns ALPHONSO VILLATORO 03/07 [place] [facility] [place] [facility] Outpatient Encounter [id number] ALPHONSO VILLATORO 03/07 [place] [facility] [place] [facility] Inpatient Encounter [id number] 03/07 [place] [facility] [place] [facility] Outpatient Encounter [id number] [id number] 03/07 [place] [facility] [place] [facility] Inpatient Encounter [id number] [id number] 03/07 [place] [facility] [place] [facility] Inpatient Encounter [id number] [id number] 03/07 [place] [facility] [place] [facility] Outpatient Encounter [id number] [id number] 03/07 [place] [facility] PRO PHONE CALL 21-30 MIN [id number] [id number] 9 Diagnos is: ICD-10- CM F10.20 Alcohol depende nce, uncompl icated RAMÓN SPRINGER 03/08 [place] [facility] 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/ M [id number] [id number] Diagnos is: ICD-10- CM F43.10 Post-tr aumatic stress disorde r, unspeci fied ALPHONSO VILLATORO 03/08 [place] [facility] Outpatient Encounter [id number] Ping BAUTISTA 03/08 [place] [facility] [id number] [id number] 8 Diagnos is: ICD-10- CM F10.29 Alcohol depende nce with unspeci fied alcohol -induce d disorde r RAMANDEEP SQUIRES 03[facility]08 [facility] Outpatient Encounter [id number] 03/10 [facility] 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/ M [id number] [id number] Diagnos is: ICD-10- CM F10.129 Alcohol abuse with intoxic ation, unspeci fied AGUSTIN MATIAS 03/13 [facility] PSYCH DIAGNOSTIC EVALUATION [id number] [id number] Diagnos is: ICD-10- CM F10.20 Alcohol depende nce, uncompl icated MARII BORJA 03/14 [place] [facility] Outpatient Encounter [id number] ALPHONSO VILLATORO 03/14 [place] [facility] Outpatient Encounter [id number] [id number] RADAMES YANG 03/15 [place] [facility] Outpatient Encounter [id number] [id number] ALPHONSO VILLATORO 03/15 [place] [facility] Outpatient Encounter [id number] RADAMES YANG 03/23 [facility] Outpatient Encounter [id number] ALPHONSO VILLATORO 03/23 [facility] PSYCH DIAGNOSTIC EVALUATION [id number] Diagnos is: ICD-10- CM F43.10 Post-tr aumatic stress disorde r, unspeci fiLISA Thomas 03/23 [facility] Outpatient Encounter [id number] 03/24 [facility] SELF-HELP/ PEER SVC PER 15MIN [id number] [id number] Diagnos is: ICD-10- CM F43.10 Post-tr aumatic stress disorde r, unspeci fied GILMA,DELANEY EPH E 03/30 [facility] [place] [facility] SELF-HELP/ PEER SVC PER 15MIN [id number] [id number] Diagnos is: ICD-10- CM F33.8 Other recurre nt depress laurel disorde rs GILMA,DELANEY EPH E 04/03 [facility] 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/ M [id number] [id number] Diagnos is: ICD-10- CM F10.20 Alcohol depende nce, uncompl icated KATALINA RUCKER 04/07 [facility] Outpatient Encounter [id number] [id number] 04/07 [facility] [place] [facility] SELF-HELP/ PEER SVC PER 15MIN 75607-6.61 [id number] Diagnos is: ICD-10- CM F10.20 Alcohol depende nce, uncompl icated BECKA DILLARDS EPH E 04/13 [facility] SELF-HELP/ PEER SVC PER 15MIN [id number] [id number] Diagnos is: ICD-10- CM F10.20 Alcohol depende nce, uncompl icated ABBYBRIE MILLS E R 04/13 [facility] PSYCH DIAGNOSTIC EVALUATION [id number] [id number] Diagnos is: ICD-10- CM F43.10 Post-tr aumatic stress disorde r, unspeci fied ABRAM BARNES 04/18 [facility] PROGRAM INTAKE ASSESSMENT [id number] Diagnos is: ICD-10- CM F43.10 Post-tr aumatic stress disorde r, unspeci fied ALPHONSO VILLATORO 04/20 [facility] Outpatient Encounter [id number] 04/21 [facility] Outpatient Encounter [id number] [id number] 04/24 [facility] Outpatient Encounter [id number] 04/25 [facility] HC PRO PHONE CALL 21-30 MIN [id number] Diagnos is: ICD-10- CM F43.10 Post-tr aumatic stress disorde r, unspeci fied LISA RODRIGUEZ 04/25 [facility] Outpatient Encounter [id number] JAYSHREE COOLEY 04/25 [facility] Outpatient Encounter [id number] [id number] 04/25 [facility] Outpatient Encounter [id number] [id number] Diagnos is: ICD-10- CM F10.129 Alcohol abuse with intoxic ation, unspeci AGUSTIN Holden 04/26 [facility] HC PRO PHONE CALL 21-30 MIN [id number] [id number] Diagnos is: ICD-10- CM F43.20 Adjustm ent disorde r, unspeci fied LSIA RODRIGUEZ 04/27 [facility] Outpatient Encounter [id number] [id number] 05/01 [facility] PRO PHONE CALL 21-30 MIN 95978-7.61 [id number] Diagnos is: ICD-10- CM F10.20 Alcohol depende nce, uncompl icated LISA RODRIGUEZ 05/02 [facility] Outpatient Encounter [id number] [id number] ANYI HERNANDEZ 05/05 [facility] EMERGENCY DEPT VISIT LOW MDM 59731-8.61 [id number] Diagnos is: ICD-10- CM S06.0XA A Concuss ion with LOC status unknown , initial encount er GIL HARPER 05/05 [facility] Outpatient Encounter [id number] [id number] SYSTEM,CIS -ARK 05/10 [facility] Outpatient Encounter [id number] [id number] 05/10 [facility] EMERGENCY DEPT VISIT [place] MDM [id number] [id number] Diagnos is: ICD-10- CM F10.120 Alcohol abuse with intoxic ation, uncompl icated ISAIAS DAY 05/10 [facility] Detoxifica tion Services for Substance Abuse Treatment [id number] [id number] Admit Reason: ETOH WITHDRA NAS MURILLO,MED ONE 05/10 Discharge from inpatient treatment against medical advise. [facility] Inpatient Encounter [id number] [id number] SYSTEM,CIS -ARK 05/11 [facility] Inpatient Encounter [id number] [id number] Johnny MARTE 05/11 [place] [facility] [place] [facility] Inpatient Encounter [id number] [id number] LOR MULLER -MINESH 05/11 [place] [facility] [place] [facility] Inpatient Encounter 00418-4.61 [id number] Johnny MARTE 05/11 [place] [facility] [place] [facility] Inpatient Encounter [id number] [id number] 05/11 [place] [facility] [place] [facility] Inpatient Encounter [id number] [id number] GUANAKO GaliciaMARILOU 05/11 [place] [facility] [place] [facility] Inpatient Encounter 00414-3.61 [id number] HENRI CHESTER 05/11 [facility] [place] [facility] IP/OBS CONSLTJ NEW/EST SF 35 [id number] [id number] Diagnos is: ICD-10- CM F10.20 Alcohol depende nce, uncompl icated Johnny ZIMMERMAN 05/11 [facility] [place] [facility] Inpatient Encounter [id number] [id number] MARILOU HUSTON 05/11 [facility] [place] [facility] Inpatient Encounter [id number] [id number] Johnny ZIMMERMAN 05/11 [facility] [place] [facility] Inpatient Encounter [id number] [id number] Antonella MAYER 05/11 [place] [facility] [place] [facility] Inpatient Encounter [id number] [id number] 05/11 [facility] Inpatient Encounter [id number] [id number] 05/11 [facility] Outpatient Encounter [id number] [id number] 05/12 [facility] Outpatient Encounter [id number] [id number] 05/12 [facility] PSYTX W PT 60 MINUTES 45820-3.61 [id number] Diagnos is: ICD-10- CM F43.10 Post-tr aumatic stress disorde r, unspeci fied ABRAM BARNES 05/15 [facility] Outpatient Encounter [id number] 05/15 [facility] Outpatient Encounter [id number] 05/15 [facility] Outpatient Encounter [id number] ALPHONSO VILLATORO 05/17 [facility] OFFICE O/P EST MOD 30 MIN [id number] [id number] Diagnos is: ICD-10- CM F10.129 Alcohol abuse with intoxic ation, unspeci fiAGUSTIN Powell 05/17 [facility] 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/ M [id number] [id number] Diagnos is: ICD-10- CM F43.10 Post-tr aumatic stress disorde r, unspeci fied ALPHONSO VILLATORO 05/17 [facility] Outpatient Encounter [id number] 05/17 [facility] SELF-HELP/ PEER SVC PER 15MIN 59397-7.61 [id number] Diagnos is: ICD-10- CM F43.10 Post-tr aumatic stress disorde r, unspeci fied BRIE MORA 05/18 [facility] [place] [facility] Outpatient Encounter [id number] 05/19 [place] [facility] [place] [facility] Outpatient Encounter [id number] YASIRJAYSHREE 05/22 [place] [facility] [place] [facility] Outpatient Encounter [id number] Diagnos is: ICD-10- CM F10.20 Alcohol depende nce, uncompl icated BANKESCOBAR L 05/23 [facility] SELF-HELP/ PEER SVC PER 15MIN [id number] Diagnos is: ICD-10- CM F43.10 Post-tr aumatic stress disorde r, unspeci fied STAS VARGAS JR 05/25 [facility] Outpatient Encounter [id number] [id number] ALPHONSO VILLATORO 05/25 [facility] 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/ M [id number] [id number] Diagnos is: ICD-10- CM F43.10 Post-tr aumatic stress disorde r, unspeci fied KATALINA RUCKER 05/26 [facility] [place] [facility] Outpatient Encounter [id number] 05/31 [facility] Outpatient Encounter [id number] ALPHONSO VILLATORO 06/01 [facility] PSYTX W PT 45 MINUTES [id number] [id number] Diagnos is: ICD-10- CM F43.10 Post-tr aumatic stress disorde r, unspeci fied ABRAM BARNES 06/12 [facility] PSYTX W PT W E/M 30 MIN [id number] [id number] Diagnos is: ICD-10- CM F33.8 Other recurre nt depress laurel disorde rs AGUSTIN MATIAS E 06/15 [facility] [place] [facility] Outpatient Encounter [id number] 06/16 [place] [facility] [place] [facility] Outpatient Encounter [id number] 06/17 [facility] [place] [facility] Outpatient Encounter [id number] AMALIA KINNEY 06/21 [facility] PH1 ASSMT&MGMT NQHP 04-26 [id number] Diagnos is: ICD-10- CM F43.20 Adjustm ent disorde r, unspeci LISA Prieto 06[facility]23 [facility] Outpatient Encounter [id number] RANDY OH 06/26 [facility] Outpatient Encounter [id number] 06/28 [facility] CASE MANAGEMENT [id number] Diagnos is: ICD-10- CM F33.8 Other recurre nt depress laurel disorde rs LISA RODRIGUEZ 06/30 [facility] SELF-HELP/ PEER SVC PER 15MIN [id number] Diagnos is: ICD-10- CM F43.10 Post-tr aumatic stress disorde r, unspeci fiBRIE Ward 07/06 [facility] [place] [facility] Outpatient Encounter [id number] UCHE DIOP I 07/11 [facility] SELF-HELP/ PEER SVC PER 15MIN [id number] [id number] Diagnos is: ICD-10- CM F43.10 Post-tr aumatic stress disorde r, unspeci fied BRIE MORA 07/13 [place] [facility] [place] [facility] Outpatient Encounter [id number] 07/13 [place] [facility] [place] [facility] Outpatient Encounter [id number] 07/13 [place] [facility] CASE MANAGEMENT [id number] Diagnos is: ICD-10- CM F10.129 Alcohol abuse with intoxic ation, unspeci fied LISA RODRIGUEZ 07/14 [facility]P EST HI 40 MIN [id number] Diagnos is: ICD-10- CM Z00.00 Encntr for general adult medical exam w/o abnorma l finding s BASSAM BLANK [facility] SELF-HELP/ PEER SVC PER 15MIN [id number] Diagnos is: ICD-10- CM F43.10 Post-tr aumatic stress disorde r, unspeci fiBRIE Ward 07/20 [place] [facility] [place] [facility] Outpatient Encounter [id number] AMALIA KINNEY 07/20 [place] [facility] Outpatient Encounter [id number] JEN JAQUEZ 07/21 [place] [facility] SELF-HELP/ PEER SVC PER 15MIN [id number] Diagnos is: ICD-10- CM F10.129 Alcohol abuse with intoxic ation, unspeci fiBRIE Ward 07/27 [place] [facility] Outpatient Encounter [id number] 07/28 [place] [facility] [place] [facility] Outpatient Encounter [id number] 08/08 [place] [facility] [place] [facility] Outpatient Encounter [id number] 08/11 [facility] [place] [facility] Outpatient Encounter [id number] AMALIA KINNEY 08/18 [facility] Social History Combined list of available smoking, tobacco, and other social history from Department of [facility] and [facility] facilities. Social History Type Response Date Comment Sourc e Tobacco smoking status [place] [facility] CENTER-TOBACCO SCREEN FOLLOW-UP 07/18/2024 [facility] History of tobacco use [place]-TO[place] USE ADVICE 07/18/2024 [facility] History of tobacco use [place]-TO[place]ACCO USE EV [facility] CIGARETTES 05/17/2024 [facility] History of tobacco use INPT TOBACCO USE - PT REFUSED 10/19/2023 [facility] of [facility] History of tobacco use [place]-TOBACCO USE CO UNSEL YES 11/01/2018 [facility] History of tobacco use CURRENT TOBACCO USER 08/05/2017 [facility] History of tobacco use CURRENT TOBACCO USER 06/15/2016 [facility] History of tobacco use INPT TOBACCO COUNSELING 06/10/2016 [facility] History of tobacco use CURRENT TOBACCO USER 06/10/2016 [facility] History of tobacco use CURRENT TOBACCO USER 10/07/2015 [facility] Plan of Care List of future care activities from [facility] facilities. Additional future care activities may be listed in the Assessment and Plan section. Date/Time Care Activity Care Activity Detail Facili ty 07/13/2024 Consult Order COMMUNITY CARE-T REATMENT RESISTANT DEPRESSION Cons Showcase Maker's Choice [facility] Advance Directives List of completed, amended, or rescinded Advance Directives on record at [facility] facilities. An actual copy of the Directive is not included. Date Advance Directive Provider Source 03/31/2023 ADVANCE DIRECTIVE DISCUSSION APOORVA KHANNA [facility] 11/30/2022 ADVANCE DIRECTIVE DISCUSSION ALEXANDER CONNOR [facility] 06/17/2016 ADVANCE DIRECTIVE DISCUSSION CAROLIN FIGUEROA AE [facility] 06/10/2016 CLINICAL WARNING NAIDA BRADSHAW [facility] 10/07/2015 ADVANCE DIRECTIVE DISCUSSION Lemuel URRUTIA [facility]
--- OUTSIDE RECORDS SUMMARY | 2024-08-19 10:33 | XMS_ITS | Encounter Summary ---
Author Name [facility] [place] [place] [facility] [place] Address [address] [place] [id number] Care Team Providers Care Cattyman Name Role Phone RAGINI BLANK Primary Care [...] section includes the information on record at [place] for the Encounter. Date/Time Encounter Type Encounter Description Reason Provider Source Jun 12, 2024 01:00 PM PSYTX W PT 45 MINUTES [facility] - IND ICD-10-CM F43.10 Post-traumatic stress disorder, unspecified NETTIE BARNES [facility] Encounter Template Text not used by [place] Assessments - Encounter Diagnoses This section includes the primary and secondary diagnoses documented for the Encounter. Date/Time Primary/Secondary Diagnosis Diagnosis Name Provider Source Jun 12, 2024 03:50 PM PRIMARY Post-traumatic stress disorder, unspecified NETTIE BARNES [facility] Jun 12, 2024 03:50 PM SECONDARY Alcohol dependence, uncomplicated NETTIE BARNES [facility] Jun 12, 2024 03:50 PM SECONDARY Other recurrent depressive disorders NETTIE BARNES [facility] Plan of Treatment: Future Appointments (+ 6 months) and Future Tests (+/- 45 days) The Plan of Treatment section includes future care activities for the patient from all [place] treatmentfacilities. This section includes future appointments and future orders which are active, pending or scheduled. Future Appointments This section includes appointments that were scheduled to occur 6 months from the date of the Encounter, up to a maximum of 20 appointments. The data comes from all [facility]. Appointment Date/Time Appointment Type Appointme nt Facility Name Jun 15, 2024 03:30 PM AMBULATORY - [place]IATRY [place] [facility] Jul 17, 2024 11:00 AM AMBULATORY - NONE [facility] [facility] Jul 18, 2024 07:01 AM AMBULATORY - NONE [facility] Jul 18, 2024 10:30 AM AMBULATORY [...] of theEncounter. The data comes from all [facility]. Test Date/Time Test Type Test Details Facility Name May 10, 2024 04:38 PM Laboratory - Chemi stry Order DRUG SCREEN PANEL,URINE URINE WC ONCE [facility] May 11, 2024 08:54 AM Laboratory - Chemi stry Order PERIPHERAL SMEAR PATHOLOGIST REVIEW BLOOD WC ONCE [facility] Jul 13, 2024 04:22 PM Consult Order COMMUNITY CARE-TREATMENT RESISTANT DEPRESSION Cons Healthcare Insurance Sales Agent's Choice [facility] Social History: Smoking Status (Most current) and Tobacco Use (All prior to encounter date) This section includes the most current, and the historical, smoking and tobacco- related health factors from the [place] facility where the Encounter took place. Current Smoking Status This section includes the most current smoking, or tobacco-related health factor, from the [place] facility where the Encounter took place. Date/Time Current Smoking Status Comment Facil ity May 17, 2024 02:30 PM [place]-TOBACCO USE EVERY DAY CIGARET [facility] Tobacco Use History This section includes a history of the smoking, or tobacco-related health factors, that were collected on or before the date of the Encounter. The data comes from the [place] facility where the Encounter took place. Date/Time Smoking Status/Tobacco Use Comment F acility May 17, 2024 02:30 PM VA-TOBACCO USE EVERY DAY CIGARET [facility] November 01, 2018 12:58 PM VA-TOBACCO DOESNT USE WI 30 MIN WAKEUP [facility] November 01, 2018 12:58 PM VA-TOBACCO USE 5 TO 15 YEARS [facility] November 01, 2018 12:58 PM VA-TOBACCO USE ADVICE [facility] November 01, 2018 12:58 PM VA-TOBACCO USE OWNER YES [facility] November 01, 2018 12:58 PM VA-TOBACCO USE MED YES [facility] November 01, 2018 12:58 PM VA-TOBACCO USER EVERY DAY [facility] Aug 05, 2017 02:28 PM CURRENT TOBACCO USER [facility] Jun 10, 2016 02:39 PM INPT TOBACCO COUNSELING [facility] Jun 10, 2016 02:39 PM INPT TOBACCO USER [place] [facility] Jun 10, 2016 08:23 AM CURRENT TOBACCO USER [facility] Advance Directives: All historical and current Section Date Range: From patient's date of to the date document was created. This section includes ALL of a patient's completed or amended [place] Advance and Rescinded Directives. The entries below indicate that a directive exists for the patient, but an actual copy is not included with this document. The data comes from all [place] facilities. Date Advance Directives Provider Source Mar 31, 2023 ADVANCE DIRECTIVE DISCUSSION APOORVA KHANNA [facility] Nov 30, 2022 ADVANCE DIRECTIVE DISCUSSION ALEXANDER CONNOR [facility] Jun 17, 2016 ADVANCE DIRECTIVE DISCUSSION CAROLIN FIGUEROA AE [facility] Jun 10, 2016 CLINICAL WARNING SANTOSHEILAREJISARINANAIDASHUBHAM ONEAL [facility] October 07, 2015 ADVANCE DIRECTIVE DISCUSSION Lemuel URRUTIA [facility] Encounter Notes: All associated [...] Disorder Depressive Disorder SCOPE: Follow Up OBJECTIVE: [place] was seen F2F. He arrived late. He states he had a good holiday and spent time with his daughter. He will start school on 06/19/2024.He reports the weekly ketamine txs are very helpful. I talked to ness about seeing two therapists. He said he was provided a therapists from the court. His name is yTe Saunders, PhD, AUTOMATION SALES MANAGER with [employer] in [place], [place]. [place] said he sees him weekly although he missed a couple days due to holidays. He said the therapist is focused on trauma and vet is not sure he wants to go there. As ness is already working with the [place] therapist I suggested he decide what he [...] insomnia, disability, recent change in functioning, OEF/OIF [place], race ([place] Citizen [place], , -[place]izen [place]), gender (male) Patient reported the following protective factors: Strong social support system, No family history of mental health issues, Financially stable, Has meaningful family relationships, Has child-related responsibilities or responsibilities for another person (e.g. elder), Hope for the future, Strong desire to live, Protective personal traits or beliefs(e.g. pattern of help seeking, beliefs against suicide, cognitive flexibility), Report pentecostal or spiritual beliefs/connections Firearms: No Other Lethal [...] f/u scheduled 2) f/u with Dr. Moon leaves session w/judgment sufficient for safety. [place] agrees to call/walk-in if having any needs prior to consecutive visit. informed/agrees to utilize safety services/resources if ever having thoughts of self-harm/harm to others i.e. calling [facility] and/or [facility] Suicide Hotline (4.703.772.QABE 4334) and/or entering ER. /samuel/ HASEEB COULTER, JUAN CLINICAL ROLL UP GUIDER OPERATOR Signed: 06/12/2024 15:52 06/12/2024 ADDENDUM STATUS: COMPLETED Correction: f/u not scheduled. agrees to contact me if he wishes to continue with therapy at the [place] vs court provided community therapist. /samuel/ HASEEB COULTER, JUAN CLINICAL ROLL UP GUIDER OPERATOR Signed: 06/12/2024 15:54 NETTIE BARNES [facility]
--- OUTSIDE RECORDS SUMMARY | 2024-08-19 10:33 | XMS_ITS | Encounter Summary ---
Author Name [facility] [place] [facility] [place] Address [address] [place] [address] Care Team Providers Care Manager Data Name Role Phone RAGINI BLANK Primary Care [...] section includes the information on record at [place] for the Encounter. Date/Time Encounter Type Encounter Description Reason Pro vider Source Aug 11, 2024 01:37 PM Outpatient Encounter [facility] Encounter Template Text not used by [place] Plan of Treatment: Future Appointments (+ 6 months) and Future Tests (+/- 45 days) The Plan of Treatment section includes future care activities for the patient from all [place] treatmentfacilities. This section includes future appointments and [...] of theEncounter. The data comes from all [place] treatment facilities. Test Date/Time Test Type Test Details Facility Name Jul 13, 2024 04:22 PM Consult Order COMMUNITY CARE-TREATMENT RESISTANT DEPRESSION Cons Linux Kernel Developer's Choice [facility] Lab Results: +/- 30 days of the encounter This section includes the Chemistry and Hematology Lab Results on record with [place] for the patient. Radiology Reports and Pathology Reports are provided separately, in subsequent sections. Lab Results This section contains the Chemistry/Hematology Results that were resulted 30 days before or 30 daysafter the date of the Encounter. Date/Time Source Result Type Result - Unit Interpretation Reference Range Comment Jul 18, 2024 10:46 AM [facility] HEMOGLOBIN A1C Specimen Type: BLOOD Comment: [...] Jul 18, 2024 10:39 AM Reporting Lab: [id number] Performing Lab: [place] [id number] HEMOGLOBIN A1C 5.5 4.0-6.0 Jul 18, 2024 10:46 AM [facility] CALCIUM Specimen Type: PLASMA No comment entered. Ordering Provider: RAGINI BLANK Report Released Date/Time: Jul 18, 2024 10:39 AM Reporting Lab: [facility] [id number] Performing Lab: [place] [id number] CALCIUM 9.5 mg/dL 8.4-10.2 Jul 18, 2024 10:46 AM [facility] TSH W/REFLEX TO FREE T4 Specimen Type: PLASMA No comment entered. Ordering Provider: RAGINI BLANK Report Released Date/Time: Jul 18, 2024 10:39 AM Reporting Lab: [facility] [id number] Performing Lab: [place] [id number] TSH 1.88 u[IU]/mL 0.35-4.94 Jul 18, 2024 10:46 AM [facility] CBC Specimen Type: BLOOD No comment entered. Ordering Provider: RAGINI BLANK Report Released Date/Time: Jul 18, 2024 10:39 AM Reporting Lab: [facility] [id number] Performing Lab: [facility] [id number] WBC 6.2 4.0-11.0 RBC 5.01 4.60-6.20 HGB 15.2 g/dL 13.5-17.9 HCT 44.8 41.0-54.0 MCV 89.4 fL 80.0-100.0 MCH 30.3 pg 27.0-33.0 MCHC 33.9 g/dL 32.0-37.5 PLT 234 150-400 MPV 10.1 fL 9.1-13.0 RDW 12.4 11.5-14.5 Jul 18, 2024 10:46 AM [facility] COMPREHENSIVE METABOLIC PANEL+MG Specimen Type: PLASMA No comment entered. Ordering Provider: RAGINI BLANK Report Released Date/Time: Jul 18, 2024 10:39 AM Reporting Lab: [facility] [id number] Performing Lab: [facility] [id number] CREATININE 0.9 mg/dL 0.7-1.2 UREA NITROGEN 11 [...] and tobacco- related health factors from the [place] facility where the Encounter took place. Current Smoking Status This section includes the most current smoking, or tobacco-related health factor, from the [place] facility where the Encounter took place. Date/Time Current Smoking Status Comment Facil ity May 17, 2024 02:30 PM VA-TOBACCO USE EVERY DAY CIGARET [place] [facility] Tobacco Use History This section includes a history of the smoking, or tobacco-related health factors, that were collected on or before the date of the Encounter. The data comes from the [place] facility where the Encounter took place. Date/Time Smoking Status/Tobacco Use Comment F acility May 17, 2024 02:30 PM VA-TOBACCO USE EVERY DAY CIGARET [place] [facility] November 01, 2018 12:58 PM VA-TOBACCO DOESNT USE WI 30 MIN WAKEUP [facility] November 01, 2018 12:58 PM VA-TOBACCO USE 5 TO 15 YEARS [facility] November 01, 2018 12:58 PM VA-TOBACCO USE ADVICE [facility] November 01, 2018 12:58 PM VA-TOBACCO USE MONOTYPE SETTER YES [facility] November 01, 2018 12:58 PM VA-TOBACCO USE MED YES [facility] November 01, 2018 12:58 PM VA-TOBACCO USER EVERY DAY [facility] Aug 05, 2017 02:28 PM CURRENT TOBACCO USER [facility] Jun 10, 2016 02:39 PM INPT TOBACCO COUNSELING [facility] Jun 10, 2016 02:39 PM INPT TOBACCO USER [facility] Jun 10, 2016 08:23 AM CURRENT TOBACCO USER [facility] Advance Directives: All historical and current Section Date Range: From patient's date of to the date document was created. This section includes ALL of a patient's completed or amended [place] Advance and Rescinded Directives. The entries below indicate that a directive exists for the patient, but an actual copy is not included with this document. The data comes from all [facility]. Date Advance Directives Provider Source Mar 31, 2023 ADVANCE DIRECTIVE DISCUSSION APOORVA KHANNA [facility] Nov 30, 2022 ADVANCE DIRECTIVE DISCUSSION ALEXANDER CONNOR [facility] Jun 17, 2016 ADVANCE DIRECTIVE DISCUSSION CAROLIN FIGUEROA AE [facility] Jun 10, 2016 CLINICAL WARNING NAIDA BRADSHAW [facility] October 07, 2015 ADVANCE DIRECTIVE DISCUSSION Lemuel [facility]RR[facility]IA [place] [facility] Encounter Notes: All associated encounter notes This section contains the clinical notes associated to the Encounter. 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 Britton reported to the court today that he recently completed midterm examinations in school, which went well. additionally reported that he has begun individual therapy through [facility], which has been going well. Britton reported that he continues to take Antabuse, which has been helping him maintain sobriety. Alcohol And Drug Counselor inquired about what additional help Britton can use from [facility]. denied any additional help that he needs at this time, but voiced that he will outreach [facility] team if needs arise. Britton was reminded to continue to attend recovery support meetings. Britton acknowledged understanding and voiced agreement. denied any immediate needs with which [facility] or [facility] can assist. was encouraged to maintain compliance with [facility], probation, and [facility]. Next court date: 08/25/2024 /samuel/ JUAN Arellano SDET Signed: 08/11/2024 14:25 [facility]
--- OUTSIDE RECORDS SUMMARY | 2024-08-19 10:34 | XMS_ITS | Encounter Summary ---
Author Name [facility] Organization [facility] Address [address] [place] [address] Care Team Providers Care Floor Specialist Name Role Phone RAGINI BLANK Primary Care [...] section includes the information on record at [place] for the Encounter. Date/Time Encounter Type Encounter Description Reason Pro vider Source May 11, 2024 04:28 PM Inpatient Visit [facility]ICAL [facility] Encounter Template Text not used by [place] Plan of Treatment: Future Appointments (+ 6 months) and Future Tests (+/- 45 days) The Plan of Treatment section includes future care activities for the patient from all [place] treatmentfacilities. This section includes future appointments and future orders which are active, pending or scheduled. Future Appointments This section includes appointments that were scheduled to occur 6 months from the date of the Encounter, up to a maximum of 20 appointments. The data comes from all [place] treatment facilities. Appointment Date/Time Appointment Type Appointme nt Facility Name May 15, 2024 11:00 AM AMBULATORY - [facility]IATRY [facility] May 17, 2024 02:30 PM AMBULATORY - PSYCHIATRY [facility] May 26, 2024 10:00 AM AMBULATORY - PSYCHIATRY [facility] Jun 12, 2024 01:00 PM [facility] Jun 15, 2024 03:30 PM AMBUL[facility] Jul 17, 2024 11:00 AM [facility] Jul 18, 2024 07:01 AM [facility] Jul 18, 2024 10:30 AM AM[facility]ULATORY - MEDICINE [facility] Active, Pending, and Scheduled Orders This section includes a listing of several types of active, pending, and scheduled orders, including clinic medications orders, diagnostic test orders, procedure orders and consult orders; where the start date of the order is 45 days before the date of the Encounter or 45 days after the date of theEncounter. The data comes from all [facility] facilities. Test Date/Time Test Type Test Details Facility Name May 10, 2024 04:38 PM Laboratory - Chemi stry Order DRUG SCREEN PANEL,URINE URINE WC ONCE [facility] May 11, 2024 08:54 AM Laboratory - Chemi stry Order PERIPHERAL SMEAR PATHOLOGIST REVIEW BLOOD WC ONCE [facility] Lab Results: +/- 30 days of the encounter This section includes the Chemistry and Hematology Lab Results on record with [place] for the patient. Radiology Reports and Pathology Reports are provided separately, in subsequent sections. Lab Results This section contains the Chemistry/Hematology Results that were resulted 30 days before or 30 daysafter the date of the Encounter. Date/Time Source Result Type Result - Unit Interpretation Reference Range Comment May 11, 2024 07:53 AM [facility] CBC Specimen Type: BLOOD No comment entered. Ordering Provider: ATIF CANSECO Report Released Date/Time: May 10, 2024 07:15 PM Reporting Lab: [facility] [phone] Performing Lab: [facility] [phone] WBC 5.1 4.0-11.0 RBC 4.19 L 4.60-6.20 HGB 12.5 g/dL L 13.5-17.9 HCT 36.6 L 41.0-54.0 MCV 87.4 fL 80.0-100.0 MCH 29.8 pg 27.0-33.0 MCHC 34.2 g/dL 32.0-37.5 PLT 74 L 150-400 MPV 10.6 fL 9.1-13.0 RDW 13.3 11.5-14.5 IPF 5.6 0-10 May 11, 2024 07:53 AM [facility] ALBUMIN Specimen Type: PLASMA No comment entered. Ordering Provider: ATIF CANSECO Report Released Date/Time: May 10, 2024 07:15 PM Reporting Lab: [facility] [phone] Performing Lab: [facility] [address] ALBUMIN 3.7 g/dL 3.5-5.0 May 11, 2024 07:53 AM [facility] PHOSPHORUS Specimen Type: PLASMA No comment entered. Ordering Provider: ATIF CANSECO Report Released Date/Time: May 10, 2024 08:52 PM Reporting Lab: [facility] [address] Performing Lab: [facility] [address] PHOSPHORUS 2.6 mg/dL 2.3-4.3 May 11, 2024 07:53 AM [facility] COMPREHENSIVE METABOLIC PANEL+MG Specimen Type: PLASMA No comment entered. Ordering Provider: ATIF CANSECO Report Released Date/Time: May 10, 2024 07:15 PM Reporting Lab: [facility] [address] Performing Lab: [facility] [address] CREATININE 0.8 mg/dL 0.7-1.2 UREA NITROGEN 11 [...] mg/dL <0.5 May 10, 2024 09:08 PM [facility] DRUG SCREEN PANEL,URINE Specimen Type: URINE Comment: Presumptive Positive by screen, results not confirmed. Glucose present in urine. No yeast detected. Ordering Provider: ATIF CANSECO Report Released Date/Time: May 10, 2024 07:15 PM Reporting Lab: [facility] [address] Performing Lab: [facility] [address] BARBITURATES Negative Negative AMPHETAMINES Negative Negative COCAINE Negative Negative BENZODIAZEPINES Negative Negative CANNABINOIDS POSITIVE H Negative METHADONE Negative Negative OPIATES Negative Negative PHENCYCLIDINE Negative Negative ETHANOL,URINE POSITIVE H Negative DRUG SCREEN CREAT 298.7 mg/dL >20.0 OXYCODONE Negative Negative BUPRENORPHINE Negative Negative TRAMADOL Negative Negative FENTANYL Negative Negative DRUG SCREEN GLUCOSE POSITIVE Negative May 10, 2024 04:50 PM [facility] ETHANOL Specimen Type: PLASMA No comment entered. Ordering Provider: PAXTON DAY Report Released Date/Time: May 10, 2024 04:38 PM Reporting Lab: [facility] [address] Performing Lab: [facility] [address] ETHANOL 286 mg/dL NEGATIVE May 10, 2024 04:50 PM [facility] LIPASE Specimen Type: PLASMA No comment entered. Ordering Provider: PAXTON DAY Report Released Date/Time: May 10, 2024 04:38 PM Reporting Lab: [facility] [address] Performing Lab: [facility] [address] LIPASE 49 U/L <60 May 10, 2024 04:50 PM [facility] PHOSPHORUS Specimen Type: PLASMA No comment entered. Ordering Provider: ATIF CANSECO Report Released Date/Time: May 10, 2024 07:15 PM Reporting Lab: [facility] [address] Performing Lab: [facility] [address] PHOSPHORUS 1.8 mg/dL L 2.3-4.3 May 10, 2024 04:50 PM [facility] ACETAMINOPHEN Specimen Type: PLASMA No comment entered. Ordering Provider: ATIF CANSECO Report Released Date/Time: May 10, 2024 07:15 PM Reporting Lab: [facility] [address] Performing Lab: [facility] [address] ACETAMINOPHEN <3.0 ug/mL L 10.0-30.0 May 10, 2024 04:50 PM [facility] COMPREHENSIVE METABOLIC PANEL+MG Specimen Type: PLASMA No comment entered. Ordering Provider: PAXTON DAY Report Released Date/Time: May 10, 2024 04:38 PM Reporting Lab: [facility] [address] Performing Lab: [facility] [address] CREATININE 0.8 mg/dL 0.7-1.2 UREA NITROGEN 14 [...] >90 >60 May 10, 2024 04:50 PM [facility] SALICYLATE Specimen Type: SERUM No comment entered. Ordering Provider: ATIF CANSECO Report Released Date/Time: May 10, 2024 07:15 PM Reporting Lab: [facility] [address] Performing Lab: [facility] [address] SALICYLATE <5.0 mg/dL L 15.0-30.0 May 10, 2024 04:50 PM [facility] CBC & DIFF Specimen Type: BLOOD Comment: Automated Differential Performed Ordering Provider: PAXTON DAY Report Released Date/Time: May 10, 2024 04:38 PM Reporting Lab: [facility] [address] Performing Lab: [facility] [address] WBC 5.5 4.0-11.0 RBC 5.10 4.60-6.20 HGB [...] EOS 0.0 0.0-0.5 ABS BASO 0.0 0.0-0.2 IG(META,MYELO,MO O) 0.2 ABS IMMATURE GRAN 0.0 0.0-0.1 IPF 4.5 0-10 May 10, 2024 04:30 PM [facility] EXTRA GOLD GEL TUBE Specimen Type: SERUM No comment entered. Ordering Provider: PAXTON DAY Report Released Date/Time: May 10, 2024 05:15 PM Reporting Lab: [facility] [address] Performing Lab: [facility] [address] EXTRA GOLD GEL TUBE RECEIVED May 05, 2024 03:27 PM [facility] ETHANOL Specimen Type: PLASMA No comment entered. Ordering Provider: MARIA ELENA HARPER Report Released Date/Time: May 05, 2024 03:27 PM Reporting Lab: [facility] [address] Performing Lab: [facility] [address] ETHANOL 443 mg/dL NEGATIVE May 05, 2024 03:27 PM [facility] ACT PART THROMBO TIME Specimen Type: PLASMA No comment entered. Ordering Provider: MARIA ELENA HARPER Report Released Date/Time: May 05, 2024 03:27 PM Reporting Lab: [facility] [address] Performing Lab: [facility] [address] APTT 31.1 s 25.1-36.5 May 05, 2024 03:27 PM [facility] EXTRA GOLD GEL TUBE Specimen Type: SERUM No comment entered. Ordering Provider: MARIA ELENA HARPER Report Released Date/Time: May 05, 2024 03:38 PM Reporting Lab: [facility] [address] Performing Lab: [facility] [address] EXTRA GOLD GEL TUBE RECEIVED May 05, 2024 03:27 PM [facility] PROTHROMBIN TIME/INR Specimen Type: PLASMA No comment entered. Ordering Provider: MARIA ELENA HARPER Report Released Date/Time: May 05, 2024 03:27 PM Reporting Lab: [facility] [address] Performing Lab: [facility] [address] .INR 0.9 0.8-1.1 .PT 10.6 s 9.4-12.5 May 05, 2024 03:27 PM [facility] COMPREHENSIVE METABOLIC PANEL+MG Specimen Type: PLASMA No comment entered. Ordering Provider: MARIA ELENA HAPRER Report Released Date/Time: May 05, 2024 03:27 PM Reporting Lab: [facility] [address] Performing Lab: [facility] [address] CREATININE 0.7 mg/dL 0.7-1.2 UREA NITROGEN 15 [...] >90 >60 May 05, 2024 03:27 PM [facility] CBC & DIFF Specimen Type: BLOOD Comment: Automated Differential Performed Ordering Provider: MARIA ELENA HARPER Report Released Date/Time: May 05, 2024 03:27 PM Reporting Lab: [facility] [address] Performing Lab: [facility] [address] WBC 8.9 4.0-11.0 RBC 5.15 4.60-6.20 HGB [...] EOS 0.0 0.0-0.5 ABS BASO 0.1 0.0-0.2 IG(META,MYELO,MO O) 0.2 ABS IMMATURE GRAN 0.0 0.0-0.1 Vital Signs: All taken on the encounter date This section contains inpatient and outpatient Vital Signs collected on the date of the Encounter. Date/Time Temperature Pulse Blood Pressure Respiratory Rate SP02 Pain Height Weight Body Mass Index Source May 11, 2024 04:32 PM 98.6 95 127/77 18 98 0 [facility] May 11, 2024 01:08 PM 97.2 95 129/81 18 98 [facility] May 11, 2024 10:49 AM 97.4 93 116/70 16 97 [facility] May 11, 2024 08:04 AM 98.4 93 135/74 18 98 0 [facility] May 11, 2024 05:58 AM 98.0 96 132/71 16 96 [facility] Social History: Smoking Status (Most current) and Tobacco Use (All prior to encounter date) This section includes the most current, and the historical, smoking and tobacco- related health factors from the [place] facility where the Encounter took place. Current Smoking Status This section includes the most current smoking, or tobacco-related health factor, from the [place] facility where the Encounter took place. Date/Time Current Smoking Status Comment Facil ity November 01, 2018 12:58 PM VA-TOBACCO USE ADVICE [facility] Tobacco Use History This section includes a history of the smoking, or tobacco-related health factors, that were collected on or before the date of the Encounter. The data comes from the [place] facility where the Encounter took place. Date/Time Smoking Status/Tobacco Use Comment F acility November 01, 2018 12:58 PM VA-TOBACCO USE 5 TO 15 YEARS [facility] November 01, 2018 12:58 PM VA-TOBACCO USE ADVICE [facility] November 01, 2018 12:58 PM VA-TOBACCO USE INTEGRATION ARCHITECT YES [facility] November 01, 2018 12:58 PM VA-TOBACCO USE MED YES [facility] November 01, 2018 12:58 PM VA-TOBACCO USER EVERY DAY [facility] Aug 05, 2017 02:28 PM CURRENT TOBACCO USER [facility] Jun 10, 2016 02:39 PM INPT TOBACCO COUNSELING [facility] Jun 10, 2016 02:39 PM INPT [facility]ER [facility] Jun 10, 2016 08:23 AM CURRENT TOBACCO USER [facility] Advance Directives: All historical and current Section Date Range: From patient's date of to the date document was created. This section includes ALL of a patient's completed or amended [place] Advance and Rescinded Directives. The entries below indicate that a directive exists for the patient, but an actual copy is not included with this document. The data comes from all [facility]. Date Advance Directives Provider Source Mar 31, 2023 ADVANCE DIRECTIVE DISCUSSION APOORVA KHANNA [facility] Nov 30, 2022 ADVANCE DIRECTIVE DISCUSSION ALEXANDER CONNOR [facility] Jun 17, 2016 ADVANCE DIRECTIVE DISCUSSION CAROLIN FIGUEROA AE [facility] Jun 10, 2016 CLINICAL WARNING NAIDA BRADSHAW [facility] October 07, 2015 ADVANCE DIRECTIVE DISCUSSION Lemuel URRUTIA [facility] Radiology Reports: +/- 30 days of the [...] the Encounter. The data comes from all [place] treatment facilities. Date/Time Radiology Report Provider Source May 05, 2024 03:[address] HEAD (P): SHAQUILLE ALARCON RADAMES [id number] -[id number] M Exm Date: MAY 05, 2024@15:44 Req Phys: GIL HARPER Loc: [facility] EMERGENCY DEPT WALK-IN (Re Img Loc: CT IMAGING Service: [place] [address] (Case [id number] COMPLETE) CT HEAD/BRAIN W/O CONTRAST (CT Detailed) CPT:46458 Reason for Study: fall headache Clinical History: [...] PLASMA .CREAT EGFR(CKD-E >90 Ref: >=60 Allergies: ([place] only) Patient has answered NKA Defer to radiologist for final CT protocol. My pager number on record is: . The pager number above is NOT correct and I have entered my correct pager number below: [phone] Trainees only: Enter your staff provider's info here: Per Joint Commission Standards, by signing this diagnostic imaging request the ordering provider confirms they have considered patients age and recent imaging history. Report Status: Verified Date Reported: MAY 05, 2024 Date Verified: MAY 05, 2024 Acting Professor E-Sig:/ES/BILL FLETCHER MD Report: EXAM: CT HEAD/BRAIN [...] Primary Interpreting Staff: BILL FLETCHER MD, RADIOLOGIST (Kris) /BILL HAIDER [facility] Encounter Notes: All associated encounter notes [...] Qty Filled Remaining AMPHETAMINE/DEXTROAMPHET 30MG SA CAP [id number] 05/09/2024 (0) TAKE ONE CAPSULE BY MOUTH TWICE A DAY FOR ATTENTION Indication: FOR ATTENTION Provider: AUBREY MATIAS FOLIC ACID 1MG TAB [id number] 04/03/2024 (0) TAKE ONE TABLET BY MOUTH EVERY DAY FOR FOLIC ACID SUPPLEMENT Indication: FOR FOLIC ACID SUPPLEMENT Provider: NIRU THOMAS H GABAPENTIN 300MG CAP [id number] 05/11/2024 (0) TAKE TWO CAPSULES THREE TIMES A DAY FOR 2 DAYS, THEN TAKE ONE CAPSULE BY MOUTH THREE TIMES A DAY FOR 2 DAYS FOR ALCOHOL WITHDRAWAL Indication: FOR ALCOHOL WITHDRAWAL Provider: MARGO CANSECO MULTIVITAMIN/MINERALS SENIOR FORMULA TAB [id number] 60 12/20/2023 (2) TAKE 1 TABLET BY MOUTH EVERY DAY FOR SUPPLEMENT Indication: FOR SUPPLEMENT Provider: AUBREY MATIAS THIAMINE 100MG TAB [id number] 100 03/07/2024 (0) TAKE ONE TABLET BY MOUTH EVERY DAY FOR SUPPLEMENT Indication: FOR SUPPLEMENT Provider: TETE THOMASMAIL H TRAZODONE HCL 100MG TAB [id number] 90 03/13/2024 (1) TAKE ONE TABLET BY MOUTH AT BEDTIME NEEDED FOR SLEEP Indication: FOR SLEEP Provider: AUBREY MATIAS Medications you get from outside of the [place] KETAMINE INJ,SOLN Statement/Explanation/Comme nt: since 07/2023 through [facility], weekly \\\\\\\\\\\\\\\\\\\\\\\\\\\ \\\\\\\\\\\\\\\\\\\\\\\\\\\ \\\\\\\\\\\\\\\\\\\\\\\\ Tobacco Cessation Discharge Plan Patient declined tobacco cessation medications and follow up services at discharge. PARTICIPANTS: Patient TEACHING STRATEGY: Face to Face, Medication information sheets and list of medications READINESS TO LEARN No barriers identified PATIENT/FAMILY RESPONSE (OUTCOME): Verbalizes critical information about the topic FOLLOW-UP RECOMMENDED: As directed by discharging provider /es/ RHETT BERGERON PHARMACIST Signed: 05/11/2024 16:30 Receipt Acknowledged By: 05/11/2024 16:31 /samuel/ MARGO CANSECO RESIDENT PHYSICIAN RHETT BERGERON [facility]
--- OUTSIDE RECORDS SUMMARY | 2024-08-19 10:34 | XMS_ITS | Encounter Summary ---
Author Name [facility] [place] Organization [facility] [place] [place] Address [address] [place] [address] Care Team Providers Care Cork Wirer Name Role Phone RAGINI BLANK Primary Care [...] section includes the information on record at [place] for the Encounter. Date/Time Encounter Type Encounter Description Reason Provider Source Jul 13, 2024 02:00 PM SELF-HELP/PEER SVC PER 15MIN [facility] ICD-10-CM F43.10 Post-traumatic stress disorder, unspecified REBEKA MORA Yani Encounter Template Text not used by [place] Assessments - Encounter Diagnoses This section includes the primary and secondary diagnoses documented for the Encounter. Date/Time Primary/Secondary Diagnosis Diagnosis Name Provider Source Jul 13, 2024 03:15 PM PRIMARY Post-traumatic stress disorder, unspecified LOBITO MORA [facility] Jul 13, 2024 03:15 PM SECONDARY Alcohol dependence, uncomplicated LOBITO MORA [facility] Jul 13, 2024 03:15 PM SECONDARY Other recurrent depressive disorders LOBITO MORA Albina [facility] Plan of Treatment: Future Appointments (+ 6 months) and Future Tests (+/- 45 days) The Plan of Treatment section includes future care activities for the [facility] [place] [facility] This section includes future appointments and future orders which are active, pending or scheduled. Future Appointments This section includes appointments that were scheduled to occur 6 months from the date of the Encounter, up to a maximum of 20 appointments. The data comes from all [facility]. Appointment Date/Time Appointment Type Appointme nt Facility Name Jul 17, 2024 11:00 AM AMBULATORY - NONE [facility] Jul 18, 2024 07:01 AM AMBULATORY - NONE [facility] Jul 18, 2024 10:30 AM AMBULATORY - MEDICINE MALACHI PABLO [facility] Active, Pending, and Scheduled Orders This section includes a listing of several types of active, pending, and scheduled orders, including clinic medications orders, diagnostic test orders, procedure orders and consult orders; where the start date of the order is 45 days before the date of the Encounter or 45 days after the date of theEncounter. The data comes from all [facility]. Test Date/Time Test Type Test Details Facility Name Jul 13, 2024 04:22 PM Consult Order COMMUNITY CARE-TREATMENT RESISTANT DEPRESSION Cons Vial [facility] Lab Results: +/- 30 days of the encounter This section includes the Chemistry and Hematology Lab Results on record with [place] for the patient. Radiology Reports and Pathology Reports are provided separately, in subsequent sections. Lab Results This section contains the Chemistry/Hematology Results that were resulted 30 days before or 30 daysafter the date of the Encounter. Date/Time Source Result Type Result - Unit Interpretation Reference Range Comment Jul 18, 2024 10:46 AM [facility] TSH W/REFLEX TO FREE T4 Specimen Type: PLASMA No comment entered. Ordering Provider: RAGINI BLANK Report Released Date/Time: Jul 18, 2024 10:39 AM Reporting Lab: [facility] [id number] Performing Lab: [facility] [phone] TSH 1.88 u[IU]/mL 0.35-4.94 Jul 18, 2024 10:46 AM [facility] HEMOGLOBIN A1C Specimen Type: BLOOD Comment: Values [...] Jul 18, 2024 10:39 AM Reporting Lab: [facility] [id number] Performing Lab: [place] [phone] HEMOGLOBIN A1C 5.5 4.0-6.0 Jul 18, 2024 10:46 AM [facility] CALCIUM Specimen Type: PLASMA No comment entered. Ordering Provider: RAGINI BLANK Report Released Date/Time: Jul 18, 2024 10:39 AM Reporting Lab: [facility] [id number] Performing Lab: [place] [phone] CALCIUM 9.5 mg/dL 8.4-10.2 Jul 18, 2024 10:46 AM [facility] CBC Specimen Type: BLOOD No comment entered. Ordering Provider: RAGINI BLANK Report Released Date/Time: Jul 18, 2024 10:39 AM Reporting Lab: [facility] [phone] Performing Lab: [facility] [id number] WBC 6.2 4.0-11.0 RBC 5.01 4.60-6.20 HGB 15.2 g/dL 13.5-17.9 HCT 44.8 41.0-54.0 MCV 89.4 fL 80.0-100.0 MCH 30.3 pg 27.0-33.0 MCHC 33.9 g/dL 32.0-37.5 PLT 234 150-400 MPV 10.1 fL 9.1-13.0 RDW 12.4 11.5-14.5 Jul 18, 2024 10:46 AM [facility] COMPREHENSIVE METABOLIC PANEL+MG Specimen Type: PLASMA No comment entered. Ordering Provider: RAGINI BLANK Report Released Date/Time: Jul 18, 2024 10:39 AM Reporting Lab: [facility] [id number] Performing Lab: [facility] [address] [facility] [phone] CREATININE 0.9 mg/dL 0.7-1.2 UREA NITROGEN 11 [...] and tobacco- related health factors from the [place] facility where the Encounter took place. Current Smoking Status This section includes the most current smoking, or tobacco-related health factor, from the [place] facility where the Encounter took place. Date/Time Current Smoking Status Comment Remington rogers May 17, 2024 02:30 PM VA-TOBACCO USE EVERY DAY CIGARET [place] [facility] Tobacco Use History This section includes a history of the smoking, or tobacco-related health factors, that were collected on or before the date of the Encounter. The data comes from the [place] facility where the Encounter took place. Date/Time Smoking Status/Tobacco Use Comment Gigi betancourt May 17, 2024 02:30 PM VA-TOBACCO USE EVERY DAY CIGARET [place] [facility] November 01, 2018 12:58 PM VA-TOBACCO DOESNT USE WI 30 MIN WAKEUP [facility] November 01, 2018 12:58 PM VA-TOBACCO USE 5 TO 15 YEARS [facility] November 01, 2018 12:58 PM VA-TOBACCO USE ADVICE [facility] November 01, 2018 12:58 PM VA-TOBACCO USE ADVANCED PRACTICE PSYCHIATRIC NURSE YES [facility] November 01, 2018 12:58 PM VA-TOBACCO USE MED YES [facility] November 01, 2018 12:58 PM VA-TOBACCO USER EVERY DAY [facility] Aug 05, 2017 02:28 PM CURRENT TOBACCO USER [facility] Jun 10, 2016 02:39 PM INPT TOBACCO COUNSELING [facility] Jun 10, 2016 02:39 PM INPT TOBACCO USER Johana ROSARIO [facility] Jun 10, 2016 08:23 AM CURRENT TOBACCO USER [facility] Advance Directives: All historical and current Section Date Range: From patient's date of to the date document was created. This section includes ALL of a patient's completed or amended [place] Advance and Rescinded Directives. The entries below indicate that a directive exists for the patient, but an actual copy is not included with this document. The data comes from all [place] facilities. Date Advance Directives Provider Source Mar 31, 2023 ADVANCE DIRECTIVE DISCUSSION APOORVA KHANNA [facility] Nov 30, 2022 ADVANCE DIRECTIVE DISCUSSION ALEXANDER CONNOR [facility] Jun 17, 2016 ADVANCE DIRECTIVE DISCUSSION CAROLIN FIGUEROA AE [facility] Jun 10, 2016 CLINICAL WARNING NAIDA BRADSHAW [facility] October 07, 2015 ADVANCE DIRECTIVE DISCUSSION Lemuel URRUTIA [facility] Encounter Notes: All associated encounter notes This section contains the clinical notes associated to the Encounter. Date/Time Encounter Note(s) Provider Source Jul 13, 2024 02:00 PM MENTAL HEALTH COUN SELING NOTE: LOCAL TITLE: PEER SUPPORT NOTE STANDARD TITLE: MENTAL HEALTH COUNSELING NOTE DATE OF NOTE: JUL 13, 2024@14:00 ENTRY DATE: JUL 13, 2024@15:13:36 AUTHOR: ERICA MORA EXP COSIGNER: URGENCY: STATUS: COMPLETED PEER SUPPORT NOTE Has ADDENDA Group Title: SMART Recovery Peer Support Drop-In Group Modality: Group discussion conferencing via WebEx Lockstitch Coat Joiner: Jones Mora, [employer] Network Engineer Duration: 60min Number of participants:7 Informed Consent: Please note that all Veterans who attended today's group have attended a previous SMART Recovery peer support Drop-In Group where-in which informed consent was discussed in detail. Group Discussion: The focus and topic of today's SMART Recovery group was on page 50 of the SMART Recovery book: Working through an ABC. Veterans were given the opportunity to check-in and share how they have been doing since the last group, with any triggers and urges. Individual Participation: was able to give and receive support from other group members. shared that he is doing well, with no triggers and urges. [place] also shared that he remains sober by staying busy with school and work. No SI/HI, plan, or intent was expressed in today's group session. Peer Support Interventions used: (X)Supportive listening (X)Role Modeling (X)Group Facilitation ( )Problem Solving ( )Advocacy ( )Crisis Intervention (X)Recovery Planning (X)Relapse Prevention (X)Education (X)Used own recovery story as a tool (X)Encouraged mutual support among members Diagnosis Per Chart:Posttraumatic stress disorder ([facility] [id number]) - Post- traumatic stress disorder, unspecified (ICD-10-CM F43.10) (Primary) Alcohol abuse (SCT [id number]) - Alcohol abuse with intoxication, unspecified (ICD-10-CM F10.129) Depressive disorder (SCT 94970141) - Other recurrent depressive disorders (ICD-10-CM F33.8) Plan: is encouraged to continue attending the [facility] Drop-in Group as needed. Procedure: H0038 (Self-Help / Peer Support) /watson MORA HEEL TURNER Signed: 07/13/2024 15:15 Receipt Acknowledged By: 07/14/2024 12:42 /HASEEB Campoverde, [facility] Clinical Hospice Executive Director 07/14/2024 ADDENDUM STATUS: COMPLETED The primary Licensed Independent Provider (LIP) of this encounter has reviewed and assessed the Peer Priming Mixture Carrier's work with this and concurs with the above. Concurrence is based on the integration of the Peer Priming Mixture Carrier's input which is shared and discussed during recurring supervision/consultation. The primary LIP did not provide direct care during the intervention noted above. /HASEEB Campoverde, [facility] Clinical Hospice Executive Director Signed: 07/14/2024 12:42 BRIE MORA [facility]
--- OUTSIDE RECORDS SUMMARY | 2024-08-19 10:34 | XMS_ITS | Encounter Summary ---
Author Name [facility] [place] [facility] [place] Address [address] [place] [address] Care Team Providers Care Ict Security Specialist Name Role Phone RAGINI BLANK Primary [...] section includes the information on record at [place] for the Encounter. Date/Time Encounter Type Encounter Description Reason Pro vider Source Aug 08, 2024 05:18 PM Outpatient Encounter EVENT (HISTORICAL) IHE Encounter Template Text not used by [place] Plan of Treatment: Future Appointments (+ 6 months) and Future Tests (+/- 45 days) The Plan of Treatment section includes future care activities for the patient from all [place] treatmentfacilities. This section includes future appointments and [...] of theEncounter. The data comes from all [place] treatment facilities. Test Date/Time Test Type Test Details Facility Name Jul 13, 2024 04:22 PM Consult Order COMMUNITY CARE-TREATMENT RESISTANT DEPRESSION Cons Water Technician's Choice [facility] Lab Results: +/- 30 days of the encounter This section includes the Chemistry and Hematology Lab Results on record with [place] for the patient. Radiology Reports and Pathology Reports are provided separately, in subsequent sections. Lab Results This section contains the Chemistry/Hematology Results that were resulted 30 days before or 30 daysafter the date of the Encounter. Date/Time Source Result Type Result - Unit Interpretation Reference Range Comment Jul 18, 2024 10:46 AM [facility] HEMOGLOBIN A1C Specimen Type: BLOOD Comment: [...] Jul 18, 2024 10:39 AM Reporting Lab: [facility] [id number] Performing Lab: [facility] [id number] HEMOGLOBIN A1C 5.5 4.0-6.0 Jul 18, 2024 10:46 AM [facility] TSH W/REFLEX TO FREE T4 Specimen Type: PLASMA No comment entered. Ordering Provider: RAGINI BLANK Report Released Date/Time: Jul 18, 2024 10:39 AM Reporting Lab: [facility] [id number] Performing Lab: [facility] [id number] TSH 1.88 u[IU]/mL 0.35-4.94 Jul 18, 2024 10:46 AM [facility] CALCIUM Specimen Type: PLASMA No comment entered. Ordering Provider: RAGINI BLANK Report Released Date/Time: Jul 18, 2024 10:39 AM Reporting Lab: [facility] [phone] Performing Lab: [place] [phone] CALCIUM 9.5 mg/dL 8.4-10.2 Jul 18, 2024 10:46 AM [facility] CBC Specimen Type: BLOOD No comment entered. Ordering Provider: BLANK,RAGINI D Report Released Date/Time: Jul 18, 2024 10:39 AM Reporting Lab: [facility] [phone] Performing Lab: [facility] [phone] WBC 6.2 4.0-11.0 RBC 5.01 4.60-6.20 HGB [...] Jul 18, 2024 10:39 AM Reporting Lab: [facility] [phone] Performing Lab: [facility] [id number] CREATININE 0.9 mg/dL 0.7-1.2 UREA NITROGEN 11 [...] and tobacco- related health factors from the [place] facility where the Encounter took place. Current Smoking Status This section includes the most current smoking, or tobacco-related health factor, from the [place] facility where the Encounter took place. Date/Time Current Smoking Status Comment Facil ity May 17, 2024 02:30 PM VA-TOBACCO USE EVERY DAY CIGARET [facility] Tobacco Use History This section includes a history of the smoking, or tobacco-related health factors, that were collected on or before the date of the Encounter. The data comes from the [place] facility where the Encounter took place. Date/Time Smoking Status/Tobacco Use Comment F acility May 17, 2024 02:30 PM VA-TOBACCO USE EVERY DAY CIGARET [facility] November 01, 2018 12:58 PM VA-TOBACCO DOESNT USE WI 30 MIN WAKEUP [facility] November 01, 2018 12:58 PM VA-TOBACCO USE 5 TO 15 YEARS [facility] November 01, 2018 12:58 PM VA-TOBACCO USE ADVICE [facility] November 01, 2018 12:58 PM VA-TOBACCO USE MARKING STITCHER YES [facility] November 01, 2018 12:58 PM VA-TOBACCO USE MED YES [facility] November 01, 2018 12:58 PM VA-TOBACCO USER EVERY DAY [facility] Aug 05, 2017 02:28 PM CURRENT TOBACCO USER [facility] Jun 10, 2016 02:39 PM INPT TOBACCO COUNSELING [facility] Jun 10, 2016 02:39 PM INPT TOBACCO USER [facility] Jun 10, 2016 08:23 AM CURRENT TOBACCO USER [facility] Advance Directives: All historical and current Section Date Range: From patient's date of to the date document was created. This section includes ALL of a patient's completed or amended [place] Advance and Rescinded Directives. The entries below indicate that a directive exists for the patient, but an actual copy is not included with this document. The data comes from all [facility]. Date Advance Directives Provider Source Mar 31, 2023 ADVANCE DIRECTIVE DISCUSSION APOORVA KHANNA [facility] Nov 30, 2022 ADVANCE DIRECTIVE DISCUSSION ALEXANDER OCNNOR [facility] Jun 17, 2016 ADVANCE DIRECTIVE DISCUSSION CAROLIN FIGUEROA [facility] Jun 10, 2016 CLINICAL WARNING NAIDA BRADSHAW [facility] October 07, 2015 ADVANCE DIRECTIVE DISCUSSION Lemuel URRUTIA [facility]
--- OUTSIDE RECORDS SUMMARY | 2024-08-19 10:34 | XMS_ITS | Encounter Summary ---
Author Name [facility] [place] [facility] [place] [facility] [place] Address [address] [place] [address] Care Team Providers Care Cmv Driver Name Role Phone RAGINI BLANK Primary Care [...] section includes the information on record at [place] for the Encounter. Date/Time Encounter Type Encounter Description Reason Provider Source Jul 06, 2024 02:00 PM SELF-HELP/PEER SVC PER 15MIN [facility] ICD-10-CM F43.10 Post-traumatic stress disorder, unspecified REBEKA MORA Yani Encounter Template Text not used by [place] Assessments - Encounter Diagnoses This section includes the primary and secondary diagnoses documented for the Encounter. Date/Time Primary/Secondary Diagnosis Diagnosis Name Provider Source Jul 07, 2024 03:03 PM PRIMARY Post-traumatic stress disorder, unspecified REBEKA MORA [facility] Jul 07, 2024 03:03 PM SECONDARY Alcohol abuse with intoxication, unspecified REBEKA MORA [facility] Jul 07, 2024 03:03 PM SECONDARY Other recurrent depressive disorders REBEKA MORA [facility] Plan of Treatment: Future Appointments (+ 6 months) and Future Tests (+/- 45 days) The Plan of Treatment section includes future care activities for the patient from all [place] [facility] This section includes future appointments and future orders which are active, pending or scheduled. Future Appointments This section includes appointments that were scheduled to occur 6 months from the date of the Encounter, up to a maximum of 20 appointments. The data comes from all [facility]. Appointment Date/Time Appointment Type Appointme nt Facility Name Jul 17, 2024 11:00 AM AMBULATORY - NONE [facility] Jul 18, 2024 07:01 AM AMBULATORY - NONE [facility] Jul 18, 2024 10:30 AM AMBULATORY - MEDICINE [facility] Active, Pending, and Scheduled Orders This section includes a listing of several types of active, pending, and scheduled orders, including clinic medications orders, diagnostic test orders, procedure orders and consult orders; where the start date of the order is 45 days before the date of the Encounter or 45 days after the date of theEncounter. The data comes from all [facility]. Test Date/Time Test Type Test Details Facility Name Jul 13, 2024 04:22 PM Consult Order COMMUNITY CARE-TREATMENT RESISTANT DEPRESSION Cons [facility] Lab Results: +/- 30 days of the encounter This section includes the Chemistry and Hematology Lab Results on record with [place] for the patient. Radiology Reports and Pathology [...] Jul 18, 2024 10:39 AM Reporting Lab: [facility] [id number] Performing Lab: [facility] [id number] TSH 1.88 u[IU]/mL 0.35-4.94 Jul 18, 2024 [...] Jul 18, 2024 10:39 AM Reporting Lab: [facility] [id number] Performing Lab: [facility] [id number] HEMOGLOBIN A1C 5.5 4.0-6.0 Jul 18, 2024 10:46 AM [facility] CALCIUM Specimen Type: PLASMA No comment entered. Ordering Provider: RAGINI BLANK Report Released Date/Time: Jul 18, 2024 10:39 AM Reporting Lab: [facility] [id number] Performing Lab: [place] [id number] CALCIUM 9.5 mg/dL 8.4-10.2 Jul 18, 2024 10:46 AM [facility] CBC Specimen Type: BLOOD No comment entered. Ordering Provider: RAGINI BLANK Report Released Date/Time: Jul 18, 2024 10:39 AM Reporting Lab: [facility] [id number] Performing Lab: [facility] [id number] WBC 6.2 4.0-11.0 RBC 5.01 4.60-6.20 HGB 15.2 g/dL 13.5-17.9 HCT 44.8 41.0-54.0 MCV 89.4 fL 80.0-100.0 MCH 30.3 pg 27.0-33.0 MCHC 33.9 g/dL 32.0-37.5 PLT 234 150-400 MPV 10.1 fL 9.1-13.0 RDW 12.4 11.5-14.5 Jul 18, 2024 10:46 AM [facility] COMPREHENSIVE METABOLIC PANEL+MG Specimen Type: PLASMA No comment entered. Ordering Provider: RAGINI BLAKN Report Released Date/Time: Jul 18, 2024 10:39 AM Reporting Lab: [facility] [id number] Performing Lab: [facility] [address] [facility] [id number] CREATININE 0.9 mg/dL 0.7-1.2 UREA NITROGEN 11 [...] and tobacco- related health factors from the [place] facility where the Encounter took place. Current Smoking Status This section includes the most current smoking, or tobacco-related health factor, from the [place] facility where the Encounter took place. Date/Time Current Smoking Status Comment Remington rogers May 17, 2024 02:30 PM VA-TOBACCO USE EVERY DAY CIGARET [place] [facility] Tobacco Use History This section includes a history of the smoking, or tobacco-related health factors, that were collected on or before the date of the Encounter. The data comes from the [place] facility where the Encounter took place. Date/Time Smoking Status/Tobacco Use Comment Gigi betancourt May 17, 2024 02:30 PM VA-TOBACCO USE EVERY DAY CIGARET [place] [facility] November 01, 2018 12:58 PM VA-TOBACCO DOESNT USE WI 30 MIN WAKEUP [facility] November 01, 2018 12:58 PM VA-TOBACCO USE 5 TO 15 YEARS [facility] November 01, 2018 12:58 PM VA-TOBACCO USE ADVICE [facility] November 01, 2018 12:58 PM VA-TOBACCO USE LINE PATROLLER YES [facility] November 01, 2018 12:58 PM VA-TOBACCO USE MED YES [facility] November 01, 2018 12:58 PM VA-TOBACCO USER EVERY DAY [facility] Aug 05, 2017 02:28 PM CURRENT TOBACCO USER [facility] Jun 10, 2016 02:39 PM INPT TOBACCO COUNSELING [facility] Jun 10, 2016 02:39 PM INPT TOBACCO USER Johana ROSARIO [facility] Jun 10, 2016 08:23 AM CURRENT TOBACCO USER [facility] Advance Directives: All historical and current Section Date Range: From patient's date of to the date document was created. This section includes ALL of a patient's completed or amended [place] Advance and Rescinded Directives. The entries below indicate that a directive exists for the patient, but an actual copy is not included with this document. The data comes from all [place] facilities. Date Advance Directives Provider Source Mar 31, 2023 ADVANCE DIRECTIVE DISCUSSION APOORVA KHANNA [facility] Nov 30, 2022 ADVANCE DIRECTIVE DISCUSSION ALEXANDER CONNOR [facility] Jun 17, 2016 ADVANCE DIRECTIVE DISCUSSION CAROLIN FIGUEROA AE [facility] Jun 10, 2016 CLINICAL WARNING NAIDA BRADSHAW [facility] October 07, 2015 ADVANCE DIRECTIVE DISCUSSION Lemuel URRUTIA [facility] Encounter Notes: All associated encounter notes This section contains the clinical notes associated to the Encounter. Date/Time Encounter Note(s) Provider Source Jul 06, 2024 02:00 PM MENTAL HEALTH COUN SELING NOTE: LOCAL TITLE: PEER SUPPORT NOTE STANDARD TITLE: MENTAL HEALTH COUNSELING NOTE DATE OF NOTE: JUL 06, 2024@14:00 ENTRY DATE: JUL 07, 2024@14:59:30 AUTHOR: ERICA MORA COSIGNER: URGENCY: STATUS: COMPLETED PEER SUPPORT NOTE Has ADDENDA Group Title: SMART Recovery Peer Support Drop-In Group Modality: Group discussion conferencing via WebEx Oil Burner Mechanic: Jones Mora, Calculus Professor Duration: 60min Number of participants:7 Informed Consent: Please note that all Veterans who attended today's group have attended a previous SMART Recovery peer support Drop-In Group where-in which informed consent was discussed in detail. Group Discussion: The focus and topic of today's SMART Recovery group was on page 44 of the SMART Recovery book: Unconditional self-acceptance. Veterans were given the opportunity to check-in and share how they have been doing since the last group, with any triggers and urges. Individual Participation: was able to give and receive support to other group members. [place] shared that he is doing well. Phoenix also shared that he has been sober for 2 months. [place] shared that he recently started school and so far, he is doing good. reported that he feels mentally good, to which he attributes to being sober. No SI/HI, plan, or intent was expressed in today's group session. Peer Support Interventions used: (X)Supportive listening (X)Role Modeling (X)Group Facilitation ( )Problem Solving ( )Advocacy ( )Crisis Intervention (X)Recovery Planning (X)Relapse Prevention (X)Education (X)Used own recovery story as a tool (X)Encouraged mutual support among members Diagnosis Per Chart: Posttraumatic stress disorder ([facility] [id number]) - Post- traumatic stress disorder, unspecified (ICD-10-CM F43.10) (Primary) Alcohol dependence, uncomplicated (ICD-10-CM F10.20) Depressive disorder (SCT 12010250) - Other recurrent depressive disorders (ICD-10-CM F33.8) Plan: is encouraged to continue attending the SMART Recovery Drop-in Group as needed. Procedure: H0038 (Self-Help / Peer Support) /watson MORA HELMET HAT SWEATBAND PUNCHER Signed: 07/07/2024 15:06 Receipt Acknowledged By: 07/10/2024 09:50 /HASEEB Lynne, [facility] CLINICAL MENTAL HEALTH ORDER FULFILLMENT SPECIALIST 07/10/2024 ADDENDUM STATUS: COMPLETED The primary Licensed Independent Provider (LIP) of this encounter has reviewed and assessed the Peer Molder's work with this and concurs with the above. Concurrence is based on the integration of the Peer Molder's input which is shared and discussed during recurring supervision/consultation with this sports writer. The primary LIP did not provide direct care during the intervention noted above. /HASEEB Lynne, [facility] CLINICAL MENTAL HEALTH ORDER FULFILLMENT SPECIALIST Signed: 07/10/2024 09:50 BRIE MORA [facility]
--- OUTSIDE RECORDS SUMMARY | 2024-08-19 10:34 | XMS_ITS | Encounter Summary ---
Author Name [facility] [facility] [place] Organization [facility] [place] Address [address] [place] [address] Care Team Providers Care Supervising Architect Name Role Phone RAGINI BLANK Primary Care [...] Jun 30, 2024 02:08 PM CASE MANAGEMENT [facility] [place][NOTE 2] JUSTICE OUTREACH ICD-10-CM F33.8 Other recurrent depressive disorders [facility] Encounter Template Text not used by [place] Assessments - Encounter Diagnoses This section includes the primary and secondary diagnoses documented for the Encounter. Date/Time Primary/Secondary Diagnosis Diagnosis Name Provider Source Jun 30, 2024 02:14 PM PRIMARY Other recurrent depressive disorders [facility] RODRIG[facility] Jun 30, 2024 02:14 PM SECONDARY Problems related to other legal circumstances [facility] RODRIG[facility]Z [facility] Plan of Treatment: Future Appointments (+ 6 months) and Future Tests (+/- 45 days) The Plan of Treatment section includes future care activities for the patient from all [place] treatmentfacilities. This section includes future appointments and future orders which are active, pending or scheduled. Future Appointments This section includes appointments that were scheduled to occur 6 months from the date of the Encounter, up to a maximum of 20 appointments. The data comes from all [facility]. Appointment Date/Time Appointment Type Appointme nt Facility Name Jul 17, 2024 11:00 AM AMBULATORY - NONE [facility] Jul 18, 2024 07:01 AM AMBULATORY - NONE [facility] Jul 18, 2024 10:30 AM AMBULATORY [...] of theEncounter. The data comes from all [facility]. Test Date/Time Test Type Test Details Facility Name Jul 13, 2024 04:22 PM Consult Order COMMUNITY CARE-TREATMENT RESISTANT DEPRESSION Cons [facility] Lab Results: +/- 30 days [...] Jul 18, 2024 10:39 AM Reporting Lab: [facility] [id number] Performing Lab: [facility] [phone] HEMOGLOBIN A1C 5.5 4.0-6.0 Jul 18, 2024 10:46 AM [facility] CALCIUM Specimen Type: PLASMA No comment entered. Ordering Provider: RAGINI BLANK Report Released Date/Time: Jul 18, 2024 10:39 AM Reporting Lab: [facility] [id number] Performing Lab: [facility] [id number] CALCIUM 9.5 mg/dL 8.4-10.2 Jul 18, 2024 10:46 AM [facility] TSH W/REFLEX TO FREE T4 Specimen Type: PLASMA No comment entered. Ordering Provider: RAGINI BLANK Report Released Date/Time: Jul 18, 2024 10:39 AM Reporting Lab: [facility] [id number] Performing Lab: [facility] [address] TSH 1.88 u[IU]/mL 0.35-4.94 Jul 18, 2024 10:46 AM [facility] CBC Specimen Type: BLOOD No comment entered. Ordering Provider: RAGINI BLANK Report Released Date/Time: Jul 18, 2024 10:39 AM Reporting Lab: [facility] [id number] Performing Lab: [facility] [id number] WBC 6.2 4.0-11.0 RBC 5.01 4.60-6.20 HGB 15.2 g/dL 13.5-17.9 HCT 44.8 41.0-54.0 MCV 89.4 fL 80.0-100.0 MCH 30.3 pg 27.0-33.0 MCHC 33.9 g/dL 32.0-37.5 PLT 234 150-400 MPV 10.1 fL 9.1-13.0 RDW 12.4 11.5-14.5 Jul 18, 2024 10:46 AM [facility] COMPREHENSIVE METABOLIC PANEL+MG Specimen Type: PLASMA No comment entered. Ordering Provider: RAGINI BLANK Report Released Date/Time: Jul 18, 2024 10:39 AM Reporting Lab: [facility] [id number] Performing Lab: [facility] [id number] CREATININE 0.9 mg/dL 0.7-1.2 UREA NITROGEN 11 [...] PM VA-TOBACCO USE EVERY DAY CIGARET [place] [facility] Tobacco Use History This section includes a history of the smoking, or tobacco-related health factors, that were collected on or before the date of the Encounter. The data comes from the [place] facility where the Encounter took place. 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 [facility] November 01, 2018 12:58 PM VA-TOBACCO USE MED YES [facility] November 01, 2018 12:58 PM VA-TOBACCO USER EVERY DAY [facility] Aug 05, 2017 02:28 PM CURRENT TOBACCO USER [facility] Jun 10, 2016 02:39 PM INPT TOBACCO COUNSELING [facility] Jun 10, 2016 02:39 PM INPT TOBACCO USER Johana ROSARIO [facility] Jun 10, 2016 08:23 AM CURRENT TOBACCO USER [facility] Advance Directives: All historical and [...] 31, 2023 ADVANCE DIRECTIVE DISCUSSION APOORVA KHANNA [facility] Nov 30, 2022 ADVANCE DIRECTIVE DISCUSSION ALEXANDER CONNOR [facility] Jun 17, 2016 ADVANCE DIRECTIVE DISCUSSION CAROLIN FIGUEROA SANA Lomeli [facility] Jun 10, 2016 CLINICAL WARNING NAIDA BRADSHAW [facility] October 07, 2015 ADVANCE DIRECTIVE DISCUSSION Lemuel URRUTIA [facility] Encounter Notes: All associated encounter notes This section contains the clinical notes associated to the Encounter. Date/Time Encounter Note(s) Provider Source Jun 30, 2024 02:08 PM MENTAL HEALTH ADMINISTRATIVE NOTE: LOCAL TITLE: MH JUSTICE PROGRAMS STANDARD TITLE: MENTAL HEALTH ADMINISTRATIVE NOTE DATE OF NOTE: JUN 30, 2024@14:08 ENTRY DATE: JUN 30, 2024@14:09:01 AUTHOR: [facility] COSIGNER: URGENCY: STATUS: COMPLETED [place] [facility]reach (VJO) Program Provider: JUAN Arellano Scope: Case Management Dx: Legal Circumstances 65.3 ICD-10 Length: 15 minutes [facility]- [address] [place] [address]: 06/30/2024 Current status: Salvador presented to the [facility] for VTC. Hogshead Stripper participated in staffing before court. Salvador was given an opportunity to review his application for phase advancement in VTC today. [place] reviewed his barriers, supports, and goals. reviewed recent activity, including beginning school two weeks ago. Salvador will be beginning community care with [facility] as well as through his school until his first appointment next month. Salvador was granted phase advancement today. [place] denied any immediate needs with which VTC or VJO can assist. [place] was encouraged to maintain compliance with VTC, probation, and VJO. Next court date: 07/14/2024 /samuel/ JUAN Arellano OPTICAL SCIENTIST Signed: 06/30/2024 14:14 [facility]
--- OUTSIDE RECORDS SUMMARY | 2024-08-19 10:34 | XMS_ITS | Clinical Summary ---
Author Organization [facility] Address [address] [place] [id number] Care Team Providers Care Waistline Joiner Name Role Phone Home - [place], [place] Veterans Primary C are Provider Allergies [...] on file Legal Sex Male 4:41 AM GAS SYSTEM OPERATOR Gender Identity Not on file Sexual Orientation Not on file Last Filed Vital Signs Vital Sign Reading Time Taken Comments Blood Pressure 156/96 07/22/2023 9:49 AM GAS SYSTEM OPERATOR Pulse 102 07/22/2023 9:49 AM GAS SYSTEM OPERATOR Temperature 36.4 C (97.5 F) 07/22/2023 5:17 AM GAS SYSTEM OPERATOR Respiratory Rate 20 07/22/2023 9:49 AM GAS SYSTEM OPERATOR Oxygen Saturation 98% 07/22/2023 9:49 AM GAS SYSTEM OPERATOR Inhaled Oxygen Concentration - - Weight 95.3 kg (210 lb) 07/22/2023 5:17 AM GAS SYSTEM OPERATOR Height 182.9 cm (6') 07/22/2023 5:17 AM GAS SYSTEM OPERATOR Body Mass Index 28.48 07/22/2023 5:17 AM GAS SYSTEM OPERATOR Plan of Treatment Health Maintenance Due Date [...] COMPREHENSIVE METABOLIC PANEL STAT 07/22/2023 5:41 AM GAS SYSTEM OPERATOR from Last 3 Months or Most Recently Relevant to Health Maintenance Results * (ABNORMAL) Comprehensive metabolic panel (07/22/2023 5:41 AM GAS SYSTEM OPERATOR) Pathologist [facility] Sodium 138 135 - 145 mmol/L 07/22/2023 6:17 AM GAS SYSTEM OPERATOR [facility] Comment:Reference intervals for this test were updated on 03/02/2023 to more accurately reflect our healthy population. There may be differences in the flagging of prior results with similar values performed with this method. Interpretation of those prior results can be made in the context of the updated reference intervals. Potassium 3.7 3.4 - 5.3 mmol/L 07/22/2023 6:17 AM GAS SYSTEM OPERATOR [facility] Carbon Dioxide (CO2) 25 22 - 29 mmol/L 07/22/2023 6:17 AM GAS SYSTEM OPERATOR [facility] Anion Gap 17(H) 7 - 15 mmol/L 07/22/2023 6:17 AM [facility] Urea Nitrogen 11.8 6.0 - 20.0 mg/dL 07/22/2023 6:17 AM [facility] Creatinine 0.82 0.67 - 1.17 mg/dL 07/22/2023 6:17 AM [facility] GFR Estimate >90 >60 mL/min/1. 73m2 07/22/2023 6:17 AM [facility] Calcium 7.9(L) 8.6 - 10.0 mg/dL 07/22/2023 6:17 AM [facility] Chloride 96(L) 98 - 107 mmol/L 07/22/2023 6:17 AM [facility] Glucose 153(H) 70 - 99 mg/dL 07/22/2023 6:17 AM [facility] Alkaline Phosphatase 71 40 - 150 U/L 07/22/2023 6:17 AM [facility] Comment:Reference intervals for this test were updated on 04/20/2023 to more accurately reflect our healthy population. There may be differences in the flagging of prior results with similar values performed with this method. Interpretation of those prior results can be made in the context of the updated reference intervals. AST 131(H) 0 - 45 U/L 07/22/2023 6:17 AM [facility] Comment:Reference intervals for this test were updated on 11/16/2022 to more accurately reflect our healthy population. There may be differences in the flagging of prior results with similar values performed with this method. Interpretation of those prior results can be made in the context of the updated reference intervals. ALT 94(H) 0 - 70 U/L 07/22/2023 6:17 AM [facility] Comment:Reference intervals for this test were updated on 11/16/2022 to more accurately reflect our healthy population. There may be differences in the flagging of prior results with similar values performed with this method. Interpretation of those prior results can be made in the context of the updated reference intervals. Protein Total 6.8 6.4 - 8.3 g/dL 07/22/2023 6:17 AM [facility] Albumin 4.2 3.5 - 5.2 g/dL 07/22/2023 6:17 AM [facility] Bilirubin Total 0.9 <=1.2 mg/dL 07/22/2023 6:17 AM GAS SYSTEM OPERATOR [facility] Blood STRUCTURE OF RIGHT UPPER LIMB / Unknown Venipuncture / Unknown 07/22/2023 5:41 AM GAS SYSTEM OPERATOR 07/22/2023 5:54 AM GAS SYSTEM OPERATOR us Ayo Boyce MD LAB - BLOOD ORDERABLES Final Result [facility] [address] Lab (1st floor, no room number) [place] [address], [facility] [phone] from Last 3 Months or Most Recently Relevant to Health Maintenance Care Teams Waistline Joiner Relationship Specialty Start Date End Date Home - [address] [address] PCP - General 07/22/23
--- OUTSIDE RECORDS SUMMARY | 2024-08-19 10:35 | XMS_ITS | Encounter Summary ---
Author Name [facility] [place] [facility] [place] Organization [place] Address [address] [place] [address] Care Team Providers Care Car Top Bolter Name Role Phone DEBORA BLANK Primary Care [...] Yani Encounter Template Text not used by [place] Assessments - Encounter Diagnoses This section includes the primary and secondary diagnoses documented for the Encounter. Date/Time Primary/Secondary Diagnosis Diagnosis Name Provider Source Jul 18, 2024 03:52 PM PRIMARY Encntr for general adult medical exam w/o abnormal findings DEBORA BLANK [facility] Jul 18, 2024 03:52 PM SECONDARY Alcohol abuse with intoxication, unspecified DEBORA BLANK [facility] Jul 18, 2024 03:52 PM SECONDARY Contact with and exposure to other hazardous substances DEBORA BLANK [facility] Jul 18, 2024 03:52 PM SECONDARY Hyperglycemia, unspecified [facility] Jul 18, 2024 03:52 PM SECONDARY Hyperlipidemia, unspecified DEBORA BLANK [facility] Jul 18, 2024 03:52 PM SECONDARY Post-traumatic stress disorder, unspecified [facility] Jul 18, 2024 03:52 PM SECONDARY Tobacco use ABHAYDEBORA NIOCLE Plan of Treatment: Future Appointments (+ 6 [...] of theEncounter. The data comes from all [place] treatment facilities. Test Date/Time Test Type Test Details Facility Name Jul 13, 2024 04:22 PM Consult Order COMMUNITY CARE-TREATMENT RESISTANT DEPRESSION Cons Rendering Equipment Tender's Choice [facility] Lab Results: +/- 30 days [...] Range Comment Jul 18, 2024 10:46 AM [facility] HEMOGLOBIN A1C Specimen Type: BLOOD Comment: Values obtained from A1C measurements can vary. For typical A1C assays, a reported value of 7.0 could actually be between 6.7 and 7.3 if measured by a reference method. A reported value of 9.0 could actually be between 8.7 and 9.3. Ref: http://www.ngs p.org/CAPdata. asp Ordering Provider: DEBORA BLANK Report Released Date/Time: Jul 18, 2024 10:39 AM Reporting Lab: [facility] [id number] Performing Lab: [facility] [phone] HEMOGLOBIN A1C 5.5 4.0-6.0 Jul 18, 2024 10:46 AM [facility] CALCIUM Specimen Type: PLASMA No comment entered. Ordering Provider: DEBORA BLANK Report Released Date/Time: Jul 18, 2024 10:39 AM Reporting Lab: [facility] [phone] Performing Lab: [facility] [address] CALCIUM 9.5 mg/dL 8.4-10.2 Jul 18, 2024 10:46 AM [facility] TSH W/REFLEX TO FREE T4 Specimen Type: PLASMA No comment entered. Ordering Provider: DEBORA BLANK Report Released Date/Time: Jul 18, 2024 10:39 AM Reporting Lab: [facility] [id number] Performing Lab: [facility] [id number] TSH 1.88 u[IU]/mL 0.35-4.94 Jul 18, 2024 10:46 AM [facility] CBC Specimen Type: BLOOD No comment entered. Ordering Provider: DEBORA BLANK Report Released Date/Time: Jul 18, 2024 10:39 AM Reporting Lab: [facility] [id number] Performing Lab: [facility] [id number] WBC 6.2 4.0-11.0 RBC 5.01 4.60-6.20 HGB 15.2 g/dL 13.5-17.9 HCT 44.8 41.0-54.0 MCV 89.4 fL 80.0-100.0 MCH 30.3 pg 27.0-33.0 MCHC 33.9 g/dL 32.0-37.5 PLT 234 150-400 MPV 10.1 fL 9.1-13.0 RDW 12.4 11.5-14.5 Jul 18, 2024 10:46 AM [facility] COMPREHENSIVE METABOLIC PANEL+MG Specimen Type: PLASMA No comment entered. Ordering Provider: DEBORA BLANK Report Released Date/Time: Jul 18, 2024 10:39 AM Reporting Lab: [facility] [phone] Performing Lab: [facility] [phone] CREATININE 0.9 mg/dL 0.7-1.2 UREA NITROGEN 11 [...] Date/Time Current Smoking Status Comment Facil ity Jul 18, 2024 10:30 AM VA-TOBACCO SCREEN FOLLOW-UP HILRAIA NICOLE Tobacco Use History This section includes a history of the smoking, or tobacco-related health factors, that were collected on or before the date of the Encounter. The data comes from the [place] facility where the Encounter took place. 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 This section includes ALL of a patient's completed or amended [place] Advance and Rescinded Directives. The entries below indicate that a directive exists for the patient, but an actual copy is not included with this document. The data comes from all [place] facilities. Date Advance Directives Provider Source Mar 31, 2023 ADVANCE DIRECTIVE DISCUSSION CLEMENCIAAPOORVA [facility] Nov 30, 2022 ADVANCE DIRECTIVE DISCUSSION ALEXANDER CONNOR [facility] Jun 17, 2016 ADVANCE DIRECTIVE DISCUSSION CAROLIN FIGUEROA AE [facility] Jun 10, 2016 CLINICAL WARNING NAIDA BRADSHAW [facility] October 07, 2015 ADVANCE DIRECTIVE DISCUSSION Lemuel [facility] Encounter Notes: All associated encounter notes This section contains the clinical notes associated to the Encounter. Date/Time Encounter Note(s) Provider Source Jul 23, 2024 10:24 PM LETTERS: LOCAL TITLE: FOLLOW UP RESULTS LETTER STANDARD TITLE: LETTERS DATE OF NOTE: JUL 23, 2024@22:24 ENTRY DATE: JUL 23, 2024@22:24:43 AUTHOR: DEBORA BLANK EXP COSIGNER: URGENCY: STATUS: COMPLETED [facility] [address] [place] [address] Jul SHAQUILLE ALARCON [address] [place] [phone] Dear [place]: You should be receiving another letter with the results of the tests you had done through the [facility]. I have reviewed the results and they looked fine which is very reassuring. If you have any further questions or problems, please contact the call center at [phone] to speak with a nurse or leave me a message. Sincerely, DEBORA BLANK DNP,SUPERINTENDENT BUILDING,ARDMS DEBORA BLANK CB Jul 18, 2024 10:31 AM H & P NOTE: LOCAL TITLE: [facility]OC ANNUAL VISIT STANDARD TITLE: H & P NOTE DATE OF NOTE: JUL 18, 2024@10:31 ENTRY DATE: JUL 18, 2024@10:31:23 AUTHOR: DEBORA BLANK COSIGNER: URGENCY: STATUS: COMPLETED Today's Nurse check-in note reviewed. [place] seen in the clinic today. Followed all current PPE guidelines during the visit. Preferred name: Shaquille Patient brought in outside medical records and have been reviewed: In JL V *JLV = active Chief complaint: An established patient here transferring care from [facility] and here for Wellness and preventive medicine [...] with other people? Not difficult at all [place]'s PHQ9 score IMPROVED from the most recent score Toxic Exposure Screening Follow-Up: Exposure Concern(s): 07/18/2024 Airborne Hazards/Open Burn Pit - Toxic Exposure Concern Follow-up Question(s): 07/18/2024 No Questions - Toxic Exposure Concern /caregiver has no health or medical concerns related to their concern of environmental exposure. The following connections were provided to the /caregiver: [employer] Benefits Administration (VBA) for Benefits/claims: [place] Flattening Machine Operator/Organization (VSO) https://www.macvso.org/find- a-cvso.html Medication Reconciliation: Education Evaluations [...] were also reviewed/updated for accuracy. Allergies/ADR from [facility] may not display in CPRS. Use JLV MRT5 - Allergies/ADRs FACILITY ALLERGY/ADR -------- [facility] No Known Allergies [place] [facility] NO KNOWN ALLERGIES [facility] NO KNOWN ALLERGIES [...] BP: 122/83 (07/18/2024 10:22) P: 94 (07/18/2024 10:22) R: 14 (07/18/2024 10:22) T: 96.7 F [35.9 C] (07/18/2024 10:22) WT: 215.5 lb [97.75 kg] (07/18/2024 10:22) BMI: 28.9 Pain: 0 (07/18/2024 10:22) O2 Sat: 96% (07/18/2024 10:22) GENERAL: Alert and oriented x 3, No [...] we can see back in a year. understands and agrees to the plan. Follow [...] for tobacco cessation medications. /samuel/ DEBORA BLANK DNP,SUPERINTENDENT BUILDING,ARDMS Signed: 07/18/2024 15:52 [facility] Jul 18, 2024 10:23 AM PRIMARY CARE NURSI NG NOTE: LOCAL TITLE: CBOC NURSING PROGRESS NOTE STANDARD TITLE: PRIMARY CARE NURSING NOTE DATE OF NOTE: JUL 18, 2024@10:23 ENTRY DATE: JUL 18, 2024@10:23:43 AUTHOR: TEE RIVERS EXP COSIGNER: URGENCY: STATUS: COMPLETED TYPE OF VISIT: Appointment Check In Type of appointment: In-person appointment REASON FOR VISIT: Annual [facility] VA ALLERGIES: Patient has answered NKA VITAL [...] 7 Total Medications Toxic Exposure Screening: The [place]/caregiver was asked if they believe the experienced any toxic exposure(s), such as Airborne Hazards and Open Burn Pit, [place] War related exposures, Agent [place], Radiation, contaminated water at [place] or other such exposures, 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 [...] Documented: 07/18/24 10:31 Pt. is Primary at [place]. /samuel/ TEE RIVERS LPN Signed: 07/18/2024 10:31 TEE RIVERS [facility]
--- OUTSIDE RECORDS SUMMARY | 2024-08-19 10:35 | XMS_ITS | Encounter Summary ---
Author Name [facility] [place] Organization [facility] [place] [facility] [place] Address [address] [place] [address] Care Team Providers Care Education Professor Name Role Phone RAGINI BLANK Primary Care [...] section includes the information on record at [place] for the Encounter. Date/Time Encounter Type Encounter Description Reason Provider Source Jul 21, 2024 05:06 PM Outpatient Encounter SUBSTANCE USE DISORDER IND NICOLE JAQUEZ E Encounter Template Text not used by [place] Plan of Treatment: Future Appointments (+ 6 months) and Future Tests (+/- 45 days) The Plan of Treatment section includes future care activities for the patient from all [place] treatmentfacilities. This section includes future appointments and [...] of theEncounter. The data comes from all [place] treatment facilities. Test Date/Time Test Type Test Details Facility Name Jul 13, 2024 04:22 PM Consult Order COMMUNITY CARE-TREATMENT RESISTANT DEPRESSION Cons Ceo And President's Choice [facility] Lab Results: +/- 30 days of the encounter This section includes the Chemistry and Hematology Lab Results on record with [place] for the patient. Radiology Reports and Pathology Reports are provided separately, in subsequent sections. Lab Results This section contains the Chemistry/Hematology Results that were resulted 30 days before or 30 daysafter the date of the Encounter. Date/Time Source Result Type Result - Unit Interpretation Reference Range Comment Jul 18, 2024 10:46 AM [facility] TSH W/REFLEX TO FREE T4 Specimen Type: PLASMA No comment entered. Ordering Provider: RAGINI BLANK Report Released Date/Time: Jul 18, 2024 10:39 AM Reporting Lab: [facility] [id number] Performing Lab: [facility] [address] TSH 1.88 u[IU]/mL 0.35-4.94 Jul 18, 2024 10:46 AM [facility] HEMOGLOBIN A1C Specimen Type: BLOOD Comment: [...] Jul 18, 2024 10:39 AM Reporting Lab: [facility] [id number] Performing Lab: [facility] [address] HEMOGLOBIN A1C 5.5 4.0-6.0 Jul 18, 2024 10:46 AM [facility] CALCIUM Specimen Type: PLASMA No comment entered. Ordering Provider: RAGINI BLANK Report Released Date/Time: Jul 18, 2024 10:39 AM Reporting Lab: [facility] [id number] Performing Lab: [facility] [address] CALCIUM 9.5 mg/dL 8.4-10.2 Jul 18, 2024 10:46 AM [facility] CBC Specimen Type: BLOOD No comment entered. Ordering Provider: RAGINI BLANK Report Released Date/Time: Jul 18, 2024 10:39 AM Reporting Lab: [facility] [id number] Performing Lab: [facility] [id number] WBC 6.2 4.0-11.0 RBC 5.01 4.60-6.20 HGB 15.2 g/dL 13.5-17.9 HCT 44.8 41.0-54.0 MCV 89.4 fL 80.0-100.0 MCH 30.3 pg 27.0-33.0 MCHC 33.9 g/dL 32.0-37.5 PLT 234 150-400 MPV 10.1 fL 9.1-13.0 RDW 12.4 11.5-14.5 Jul 18, 2024 10:46 AM [facility] COMPREHENSIVE METABOLIC PANEL+MG Specimen Type: PLASMA No comment entered. Ordering Provider: RAGINI BLANK Report Released Date/Time: Jul 18, 2024 10:39 AM Reporting Lab: [facility] [id number] Performing Lab: [facility] [phone] CREATININE 0.9 mg/dL 0.7-1.2 UREA NITROGEN 11 [...] and tobacco- related health factors from the [place] facility where the Encounter took place. Current Smoking Status This section includes the most current smoking, or tobacco-related health factor, from the [place] facility where the Encounter took place. Date/Time Current Smoking Status Comment Rem[place] ity May 17, 2024 02:30 PM VA-TOBACCO USE EVERY DAY CIGARET [facility] Tobacco Use History This section includes a history of the smoking, or tobacco-related health factors, that were collected on or before the date of the Encounter. The data comes from the [place] facility where the Encounter took place. 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 [facility] November 01, 2018 12:58 PM VA-TOBACCO USE MED YES [facility] November 01, 2018 12:58 PM VA-TOBACCO USER EVERY DAY [facility] Aug 05, 2017 02:28 PM CURRENT TOBACCO USER [facility] Jun 10, 2016 02:39 PM INPT TOBACCO COUNSELING [facility] Jun 10, 2016 02:39 PM INPT TOBACCO USER [facility] Jun 10, 2016 08:23 AM CURRENT TOBACCO USER [facility] Advance Directives: All historical and current Section Date Range: From patient's date of to the date document was created. This section includes ALL of a patient's completed or amended [place] Advance and Rescinded Directives. The entries below indicate that a directive exists for the patient, but an actual copy is not included with this document. The data comes from all [facility]. Date Advance Directives Provider Source Mar 31, 2023 ADVANCE DIRECTIVE DISCUSSION APOORVA KHANNA [facility] Nov 30, 2022 ADVANCE DIRECTIVE DISCUSSION ALEXANDER CONNOR [facility] Jun 17, 2016 ADVANCE DIRECTIVE DISCUSSION CAROLIN FIGUEROA AE [facility] Jun 10, 2016 CLINICAL WARNING NAIDA BRADSHAW [facility] October 07, 2015 ADVANCE DIRECTIVE DISCUSSION [facility] Encounter Notes: All associated encounter notes This section contains the clinical notes associated to the Encounter. Date/Time Encounter Note(s) Provider Source Jul 21, 2024 05:06 PM MENTAL HEALTH SECU RE MESSAGING: LOCAL TITLE: MENTAL HEALTH SECURE MESSAGING STANDARD TITLE: MENTAL HEALTH SECURE MESSAGING DATE OF NOTE: JUL 21, 2024@17:06 ENTRY DATE: JUL 21, 2024@16:06:30 AUTHOR: JEN JAQUEZ EXP COSIGNER: URGENCY: STATUS: COMPLETED ------Original Message ------- Sent: 07/21/2024 12:42 PM ET From: SHAQUILLE ALARCON To: [facility] Mental Health ARS Team % Subject: Medication:Dr. Red Noriega refill Requesting refill for the adderall prescription next week. Thanks. ------Original Message ------- Sent: 07/21/2024 05:06 PM ET From: JEN JAQUEZ To: SHAQUILLE ALARCON Subject: Medication:Dr. Red dawkins [place], We will send your Adderall later next week, so that it will arrive on 07/31 (your last refill arrived 07/03 for a 28 day supply, which places this next refill as due on 07/31). Let us know if there are any issues with this refill date. Thanks, Sammy CONNELLY [phone] /es/ JEN JAQUEZ RN RN Signed: 07/21/2024 16:06 JEN JAQUEZ [facility]
--- OUTSIDE RECORDS SUMMARY | 2024-08-19 10:35 | XMS_ITS | Encounter Summary ---
Author Name [facility] [place] Organization [place] Address [address] [place] [address] Care Team Providers Care Director Of Respiratory Therapy Name Role Phone RAGINI BLAKN Primary Care Provider Unavailabl e Insurance Providers: [...] 12:56 AM Inpatient Visit ADMIN PAT ACTIVTIES (pushd) SYSTEM,CIS-ARK IHE Encounter Template Text not used by [place] Plan of Treatment: Future Appointments (+ 6 months) and Future Tests (+/- 45 days) The Plan of Treatment section includes future care activities for the patient from all [place] treatmentfacilities. This section includes future appointments and [...] 15, 2024 11:00 AM AMBULATORY - PSYCHIATRY [facility] May 17, 2024 02:30 PM AMBULATORY - PSYCHIATRY [facility] May 26, 2024 10:00 AM AMBULATORY - PSYCHIATRY [facility] Jun 12, 2024 01:00 PM AMBULATORY - PS[place]CHIATRY [facility] Jun 15, 2024 03:30 PM AMBULATORY - PSYCHIATRY [facility] Jul 17, 2024 11:00 AM [facility] Jul 18, 2024 07:01 AM [facility] Jul 18, 2024 10:30 AM AMBULATORY [...] theEncounter. The data comes from all [facility] facilities. Test Date/Time Test Type Test Details Facility Name May 10, 2024 04:38 PM Laboratory - Chemi stry Order DRUG SCREEN PANEL,URINE URINE WC ONCE [facility] May 11, 2024 08:54 AM Laboratory - Chemi stry Order PERIPHERAL SMEAR PATHOLOGIST REVIEW BLOOD WC ONCE [facility] Lab Results: +/- 30 [...] Range Comment May 11, 2024 07:53 AM [facility] CBC Specimen Type: BLOOD No comment entered. Ordering Provider: ATIF CANSECO Report Released Date/Time: May 10, 2024 07:15 PM Reporting Lab: [facility] [phone] Performing Lab: [facility] [phone] WBC 5.1 4.0-11.0 RBC 4.19 L 4.60-6.20 HGB 12.5 g/dL L 13.5-17.9 HCT 36.6 L 41.0-54.0 MCV 87.4 fL 80.0-100.0 MCH 29.8 pg 27.0-33.0 MCHC 34.2 g/dL 32.0-37.5 PLT 74 L 150-400 MPV 10.6 fL 9.1-13.0 RDW 13.3 11.5-14.5 IPF 5.6 0-10 May 11, 2024 07:53 AM [facility] ALBUMIN Specimen Type: PLASMA No comment entered. Ordering Provider: ATIF CANSECO Report Released Date/Time: May 10, 2024 07:15 PM Reporting Lab: [facility] [phone] Performing Lab: [facility] [address] ALBUMIN 3.7 g/dL 3.5-5.0 May 11, 2024 07:53 AM [facility] PHOSPHORUS Specimen Type: PLASMA No comment entered. Ordering Provider: ATIF CANSECO Report Released Date/Time: May 10, 2024 08:52 PM Reporting Lab: [facility] [address] Performing Lab: [facility] [address] PHOSPHORUS 2.6 mg/dL 2.3-4.3 May 11, 2024 07:53 AM [facility] COMPREHENSIVE METABOLIC PANEL+MG Specimen Type: PLASMA No comment entered. Ordering Provider: ATIF CANSECO Report Released Date/Time: May 10, 2024 07:15 PM Reporting Lab: [facility] [phone] Performing Lab: [facility] [address] CREATININE 0.8 mg/dL 0.7-1.2 UREA NITROGEN 11 [...] mg/dL <0.5 May 10, 2024 09:08 PM [facility] DRUG SCREEN PANEL,URINE Specimen Type: URINE Comment: Presumptive Positive by screen, results not confirmed. Glucose present in urine. No yeast detected. Ordering Provider: ATIF CANSECO Report Released Date/Time: May 10, 2024 07:15 PM Reporting Lab: [facility] [phone] Performing Lab: [facility] [address] BARBITURATES Negative Negative AMPHETAMINES Negative Negative COCAINE Negative Negative BENZODIAZEPINES Negative Negative CANNABINOIDS POSITIVE H Negative METHADONE Negative Negative OPIATES Negative Negative PHENCYCLIDINE Negative Negative ETHANOL,URINE POSITIVE H Negative DRUG SCREEN CREAT 298.7 mg/dL >20.0 OXYCODONE Negative Negative BUPRENORPHINE Negative Negative TRAMADOL Negative Negative FENTANYL Negative Negative DRUG SCREEN GLUCOSE POSITIVE Negative May 10, 2024 04:50 PM [facility] ETHANOL Specimen Type: PLASMA No comment entered. Ordering Provider: PAXTON DAY Report Released Date/Time: May 10, 2024 04:38 PM Reporting Lab: [facility] [address] Performing Lab: [facility] [address] ETHANOL 286 mg/dL NEGATIVE May 10, 2024 04:50 PM [facility] LIPASE Specimen Type: PLASMA No comment entered. Ordering Provider: PAXTON DAY Report Released Date/Time: May 10, 2024 04:38 PM Reporting Lab: [facility] [address] Performing Lab: [facility] [address] LIPASE 49 U/L <60 May 10, 2024 04:50 PM [facility] PHOSPHORUS Specimen Type: PLASMA No comment entered. Ordering Provider: ATIF CANSECO Report Released Date/Time: May 10, 2024 07:15 PM Reporting Lab: [facility] [address] Performing Lab: [facility] [address] PHOSPHORUS 1.8 mg/dL L 2.3-4.3 May 10, 2024 04:50 PM [facility] ACETAMINOPHEN Specimen Type: PLASMA No comment entered. Ordering Provider: ATIF CANSECO Report Released Date/Time: May 10, 2024 07:15 PM Reporting Lab: [facility] [phone] Performing Lab: [facility] [address] ACETAMINOPHEN <3.0 ug/mL L 10.0-30.0 May 10, 2024 04:50 PM [facility] SALICYLATE Specimen Type: SERUM No comment entered. Ordering Provider: ATIF CANSECO Report Released Date/Time: May 10, 2024 07:15 PM Reporting Lab: [facility] [address] Performing Lab: [facility] [address] SALICYLATE <5.0 mg/dL L 15.0-30.0 May 10, 2024 04:50 PM [facility] COMPREHENSIVE METABOLIC PANEL+MG Specimen Type: PLASMA No comment entered. Ordering Provider: PAXTON DAY Report Released Date/Time: May 10, 2024 04:38 PM Reporting Lab: [facility] [address] Performing Lab: [facility] [address] CREATININE 0.8 mg/dL 0.7-1.2 UREA NITROGEN 14 [...] >90 >60 May 10, 2024 04:50 PM [facility] CBC & DIFF Specimen Type: BLOOD Comment: Automated Differential Performed Ordering Provider: PAXTON DAY Report Released Date/Time: May 10, 2024 04:38 PM Reporting Lab: [facility] [address] Performing Lab: [facility] [address] WBC 5.5 4.0-11.0 RBC 5.10 4.60-6.20 HGB [...] EOS 0.0 0.0-0.5 ABS BASO 0.0 0.0-0.2 IG(META,MYELO,CO O) 0.2 ABS IMMATURE GRAN 0.0 0.0-0.1 IPF 4.5 0-10 May 10, 2024 04:30 PM [facility] EXTRA GOLD GEL TUBE Specimen Type: SERUM No comment entered. Ordering Provider: PAXTON DAY Report Released Date/Time: May 10, 2024 05:15 PM Reporting Lab: [facility] [phone] Performing Lab: [facility] [address] EXTRA GOLD GEL TUBE RECEIVED May 05, 2024 03:27 PM [facility] ACT PART THROMBO TIME Specimen Type: PLASMA No comment entered. Ordering Provider: MARIA ELENA HARPER Report Released Date/Time: May 05, 2024 03:27 PM Reporting Lab: [facility] [address] Performing Lab: [facility] [address] APTT 31.1 s 25.1-36.5 May 05, 2024 03:27 PM [facility] ETHANOL Specimen Type: PLASMA No comment entered. Ordering Provider: MARIA ELENA HARPER Report Released Date/Time: May 05, 2024 03:27 PM Reporting Lab: [facility] [address] Performing Lab: [facility] [address] ETHANOL 443 mg/dL NEGATIVE May 05, 2024 03:27 PM [facility] PROTHROMBIN TIME/INR Specimen Type: PLASMA No comment entered. Ordering Provider: MARIA ELENA HARPER Report Released Date/Time: May 05, 2024 03:27 PM Reporting Lab: [facility] [address] Performing Lab: [facility] [phone] .INR 0.9 0.8-1.1 .PT 10.6 s 9.4-12.5 May 05, 2024 03:27 PM [facility] EXTRA GOLD GEL TUBE Specimen Type: SERUM No comment entered. Ordering Provider: MARIA ELENA HARPER Report Released Date/Time: May 05, 2024 03:38 PM Reporting Lab: [facility] [address] Performing Lab: [facility] [address] EXTRA GOLD GEL TUBE RECEIVED May 05, 2024 03:27 PM [facility] COMPREHENSIVE METABOLIC PANEL+MG Specimen Type: PLASMA No comment entered. Ordering Provider: MARIA ELENA HARPER Report Released Date/Time: May 05, 2024 03:27 PM Reporting Lab: [facility] [address] Performing Lab: [facility] [address] CREATININE 0.7 mg/dL 0.7-1.2 UREA NITROGEN 15 [...] >90 >60 May 05, 2024 03:27 PM [facility] CBC & DIFF Specimen Type: BLOOD Comment: Automated Differential Performed Ordering Provider: MARIA ELENA HARPER Report Released Date/Time: May 05, 2024 03:27 PM Reporting Lab: [facility] [address] Performing Lab: [facility] [address] WBC 8.9 4.0-11.0 RBC 5.15 4.60-6.20 HGB [...] EOS 0.0 0.0-0.5 ABS BASO 0.1 0.0-0.2 IG(META,MYELO,CO O) 0.2 ABS IMMATURE GRAN 0.0 0.0-0.1 Vital Signs: All taken on the encounter date This section contains inpatient and outpatient Vital Signs collected on the date of the Encounter. Date/Time Temperature Pulse Blood Pressure Respiratory Rate SP02 Pain Height Weight Body Mass Index Source May 11, 2024 04:32 PM 98.6 95 127/77 18 98 0 [facility] May 11, 2024 01:08 PM 97.2 95 129/81 18 98 [facility] May 11, 2024 10:49 AM 97.4 93 116/70 16 97 [facility] May 11, 2024 08:04 AM 98.4 93 135/74 18 98 0 [facility] May 11, 2024 05:58 AM 98.0 96 132/71 16 96 [facility] Social History: Smoking Status (Most current) and [...] VA-TOBACCO USE MED YES [facility] Tobacco Use History This [...] November 01, 2018 12:58 PM VA-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 The data comes from all [facility]. Date Advance Directives Provider Source Mar 31, 2023 ADVANCE DIRECTIVE DISCUSSION APOORVA KHANNA [facility] Nov 30, 2022 ADVANCE DIRECTIVE DISCUSSION ALEXANDER CONNOR [facility] Jun 17, 2016 ADVANCE DIRECTIVE DISCUSSION CAROLIN FIGUEROA AE [facility] Jun 10, 2016 CLINICAL WARNING KULDIPELIZABETH BRANCHSHUBHAM ONEAL [facility] October 07, 2015 ADVANCE DIRECTIVE DISCUSSION Lemuel URRUTIA [facility] Radiology Reports: +/- 30 days of [...] the Encounter. The data comes from all [place] treatment facilities. Date/Time Radiology Report Provider Source May 05, 2024 03:[address] HEAD (P): SHAQUILLE ALARCON [id number] M Exm Date: MAY 05, 2024@15:44 Req Phys: GIL HARPER Loc: [facility] EMERGENCY DEPT WALK-IN (Re Img Loc: CT IMAGING Service: [place] [address] (Case [id number] COMPLETE) CT HEAD/BRAIN W/O CONTRAST (CT Detailed) CPT:49830 Reason for Study: fall headache Clinical History: [...] PLASMA .CREAT EGFR(CKD-E >90 Ref: >=60 Allergies: (Dexter only) Patient has answered NKA Defer to radiologist for final CT protocol. My pager number on record is: . The pager number above is NOT correct and I have entered my correct pager number below: [phone] Trainees only: Enter your staff provider's info here: Per Joint Commission Standards, by signing this diagnostic imaging request the ordering provider confirms they have considered patients age and recent imaging history. Report Status: Verified Date Reported: MAY 05, 2024 Date Verified: MAY 05, 2024 Capsule Maker E-Sig:/ES/BILL FLETCHER MD Report: EXAM: CT HEAD/BRAIN [...] Primary Interpreting Staff: BILL FLETCHER MD, RADIOLOGIST (Capsule Maker) /BILL HAIDER [facility] Encounter Notes: All associated encounter notes This section contains the clinical notes associated to the Encounter. Date/Time Encounter Note(s) Provider Source May 11, 2024 12:56 AM CRITICAL CARE UNIT NOTE: LOCAL TITLE: ICCA INPATIENT FLOWSHEET STANDARD TITLE: CRITICAL CARE UNIT NOTE DATE OF NOTE: MAY 11, 2024@00:56 ENTRY DATE: MAY 11, 2024@14:38:13 AUTHOR: SYSTEM,CIS-ARK EXP COSIGNER: URGENCY: STATUS: COMPLETED This is a place acosta only. Please see [employer] to view document. /es/ [email or web address] SYSTEM ICU DOCUMENT IMPORT Signed: 05/11/2024 14:38 SYSTEM,CIS-ARK [facility] May 11, 2024 12:56 AM CRITICAL CARE UNIT NOTE: LOCAL TITLE: ICCA RESPIRATORY THERAPY FLOWSHEET STANDARD TITLE: CRITICAL CARE UNIT NOTE DATE OF NOTE: MAY 11, 2024@00:56 ENTRY DATE: MAY 11, 2024@15:11:50 AUTHOR: SYSTEM,CIS-ARK EXP COSIGNER: URGENCY: STATUS: COMPLETED This is a place acosta only. Please see [employer] to view document. /es/ CIS-ARK SYSTEM ICU DOCUMENT IMPORT Signed: 05/11/2024 15:11 SYSTEM,CIS-ARK [facility]
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
--- OUTSIDE RECORDS SUMMARY | 2024-08-19 10:35 | XMS_ITS | Encounter Summary ---
Author Name [facility] [place] [facility] [place] Address [address] [place] [address] Care Team Providers Care Machine Joiner Cementer Name Role Phone ABHAY RAGINI Primary Care [...] Type Encounter Description Reason Pro vider Source Sep 13, 2023 11:00 AM Outpatient Encounter [facility] Encounter Template Text not used by [place] [...] Date/Time Appointment Type Appointme nt Facility Name Sep 17, 2023 06:13 PM [place] [facility] Sep 30, 2023 01:00 PM [place] [facility] October 20, 2023 09:00 AM AMBULATORY - PSYCHIATRY [facility] October 22, 2023 02:30 PM [place] [facility] October 26, 2023 11:00 AM [facility] - [facility]IC[facility] October 29, 2023 09:00 AM AMBULATORY - PSYCHIATRY [facility] October 31, 2023 03:42 AM AMBULATORY - NONE [place] [facility] November 05, 2023 09:00 AM AM[place]ORY [place] [facility] Nov 08, 2023 09:00 AM AMBULATORY - PSYCHIATRY [facility] Dec 28, 2023 04:30 PM AM[place]ORY - [place]ONE [place] [facility] Jan 13, 2024 03:25 PM [facility] Mar 05, 2024 09:07 PM [facility] Mar 13, 2024 11:00 AM [place] [facility] Mar 14, 2024 02:00 PM [place] [facility] Active, Pending, and [...] of theEncounter. The data comes from all [place] treatment facilities. Test Date/Time Test Type Test Details Facility Name October 18, 2023 12:00 AM Laboratory - Chemi stry Order QFTB-PANEL BLOOD SPECIAL TUBE PLASMA SP ONCE [facility] Social History: Smoking Status (Most current) and [...] November 01, 2018 12:58 PM VA-TOBACCO USE TWILL CUTTER YES [facility] Tobacco Use History This section includes a history of the smoking, or tobacco-related health factors, that were collected on or before the date of the Encounter. The data comes from the [place] facility where the Encounter took place. Date/Time Smoking Status/Tobacco Use Comment F acility November 01, 2018 12:58 PM VA-TOBACCO USE 5 TO 15 YEARS [facility] November 01, 2018 12:58 PM VA-TOBACCO USE ADVICE [facility] November 01, 2018 12:58 PM VA-TOBACCO USE TWILL CUTTER YES [facility] November 01, 2018 12:58 PM VA-TOBACCO USE MED YES [facility] November 01, 2018 12:58 PM VA-TOBACCO USER EVERY DAY [facility] Aug 05, 2017 02:28 PM CURRENT TOBACCO USER [facility] Jun 10, 2016 02:39 PM INPT TOBACCO COUNSELING [facility] Jun 10, 2016 02:39 PM INPT TOBACCO USER [place] [facility] Jun 10, 2016 08:23 AM CURRENT TOBACCO USER [facility] Advance Directives: All historical and [...] 31, 2023 ADVANCE DIRECTIVE DISCUSSION APOORVA KHANNA [facility] Nov 30, 2022 ADVANCE DIRECTIVE DISCUSSION ALEXANDER CONNOR [facility] Jun 17, 2016 ADVANCE DIRECTIVE DISCUSSION CAROLIN FIGUEROA AE [facility] Jun 10, 2016 CLINICAL WARNING NAIDA BRADSHAW [facility] October 07, 2015 ADVANCE DIRECTIVE DISCUSSION Lemuel URRUTIA [facility] Encounter Notes: All associated encounter notes This section contains the clinical notes associated to the Encounter. Date/Time Encounter Note(s) Provider Source Sep 13, 2023 11:00 AM NO SHOW NOTE: LOCAL TITLE: NO SHOW NOTE STANDARD TITLE: NO SHOW NOTE DATE OF NOTE: SEP 13, 2023@11:00 ENTRY DATE: SEP 13, 2023@11:24:05 AUTHOR: COLTON TRAVIS COSIGNER: URGENCY: STATUS: COMPLETED did not appear for scheduled appointment. No known changes to risk assessment. Risk factors: demographics (male, , age, ), depression, PTSD/trauma history, alcohol misuse, limited social support, passive suicidal ideation, recently unemployed. Protective factors: denial of recent suicidal intent and plan; no reported prior suicide attempts; engaging in mental health care/recently started ketamine tx in the community; housing, no legal problems, some positive social support in family; young daughter. Clinician Judgment of Risk: In my best judgment, after consideration of all available information/factors, I think a reasonable clinician would agree that the is a low acute, low chronic, risk for suicide/self-harm behaviors. Plan Based on Clinician Judgment of Risk: High Density Talc Coater Operator initiated phone outreach with the at approximately 1120 when he had not yet presented to the clinic for his appointment. No answer. Left voicemail regarding reason for my call, inviting completion of a brief appointment by phone if interested/able. Provided my direct office phone number. Also provided reminder for his next scheduled appointment on 09/27/23 at 1100 (F2F). No acute safety concerns and consequently no additional outreach will be conducted. /samuel/ Ruth Travis, PhD, Clinical Psychologist Signed: 09/13/2023 11:26 RUTH TRAVIS [facility]
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
--- OUTSIDE RECORDS SUMMARY | 2024-08-19 10:35 | XMS_ITS ---
Author Name [facility] [place] [facility] [place] Address [address] [place] [address] Care Team Providers Care Geothermal Field Technician Name Role Phone RAGINI BLANK Primary Care [...] section includes the information on record at [place] for the Encounter. Date/Time Encounter Type Encounter Description Reason Pro vider Source Jul 28, 2024 01:30 PM Outpatient Encounter [facility] Encounter Template Text not used by [place] Plan of Treatment: Future Appointments (+ 6 months) and Future Tests (+/- 45 days) The Plan of Treatment section includes future care activities for the patient from all [place] treatmentfacilities. This section includes future appointments and [...] of theEncounter. The data comes from all [place] treatment facilities. Test Date/Time Test Type Test Details Facility Name Jul 13, 2024 04:22 PM Consult Order COMMUNITY CARE-TREATMENT RESISTANT DEPRESSION Cons Automobile Inspector's Choice [facility] Lab Results: +/- 30 days of the encounter This section includes the Chemistry and Hematology Lab Results on record with [place] for the patient. Radiology Reports and Pathology Reports are provided separately, in subsequent sections. Lab Results This section contains the Chemistry/Hematology Results that were resulted 30 days before or 30 daysafter the date of the Encounter. Date/Time Source Result Type Result - Unit Interpretation Reference Range Comment Jul 18, 2024 10:46 AM [facility] HEMOGLOBIN A1C Specimen Type: BLOOD Comment: [...] 10:39 AM Reporting Lab: [facility] [id number] Performing Lab: [facility] [id number] HEMOGLOBIN A1C 5.5 4.0-6.0 Jul 18, 2024 10:46 AM [facility] TSH W/REFLEX TO FREE T4 Specimen Type: PLASMA No comment entered. Ordering Provider: RAGINI BLANK Report Released Date/Time: Jul 18, 2024 10:39 AM Reporting Lab: [facility] [id number] Performing Lab: [facility] [id number] TSH 1.88 u[IU]/mL 0.35-4.94 Jul 18, 2024 10:46 AM [facility] CALCIUM Specimen Type: PLASMA No comment entered. Ordering Provider: RAGINI BLANK Report Released Date/Time: Jul 18, 2024 10:39 AM Reporting Lab: [facility] [id number] Performing Lab: [place] [id number] CALCIUM 9.5 mg/dL 8.4-10.2 Jul 18, 2024 10:46 AM [facility] CBC Specimen Type: BLOOD No comment entered. Ordering Provider: RAGINI BLANK Report Released Date/Time: Jul 18, 2024 10:39 AM Reporting Lab: [facility] [id number] Performing Lab: [facility] [id number] WBC 6.2 4.0-11.0 RBC 5.01 4.60-6.20 HGB [...] 10:39 AM Reporting Lab: [facility] [id number] Performing Lab: [facility] [id number] CREATININE 0.9 mg/dL 0.7-1.2 UREA NITROGEN 11 [...] and tobacco- related health factors from the [place] facility where the Encounter took place. Current Smoking Status This section includes the most current smoking, or tobacco-related health factor, from the [place] facility where the Encounter took place. Date/Time Current Smoking Status Comment Facil ity May 17, 2024 02:30 PM VA-TOBACCO USE EVERY DAY CIGARET [facility] Tobacco Use History This section includes a history of the smoking, or tobacco-related health factors, that were collected on or before the date of the Encounter. The data comes from the [place] facility where the Encounter took place. 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 [facility] November 01, 2018 12:58 PM VA-TOBACCO USE MED YES [facility] November 01, 2018 12:58 PM VA-TOBACCO USER EVERY DAY [facility] Aug 05, 2017 02:28 PM CURRENT TOBACCO USER [facility] Jun 10, 2016 02:39 PM INPT TOBACCO COUNSELING [facility] Jun 10, 2016 02:39 PM INPT TOBACCO USER [facility] Jun 10, 2016 08:23 AM CURRENT TOBACCO USER [facility] Advance Directives: All historical and current Section Date Range: From patient's date of to the date document was created. This section includes ALL of a patient's completed or amended [place] Advance and Rescinded Directives. The entries below indicate that a directive exists for the patient, but an actual copy is not included with this document. The data comes from all [facility]. Date Advance Directives Provider Source Mar 31, 2023 ADVANCE DIRECTIVE DISCUSSION APOORVA KHANNA [facility] Nov 30, 2022 ADVANCE DIRECTIVE DISCUSSION ALEXANDER CONNOR [facility] Jun 17, 2016 ADVANCE DIRECTIVE DISCUSSION CAROLIN FIGUEROA AE [facility] Jun 10, 2016 CLINICAL WARNING NAIDA BRADSHAW [facility] October 07, 2015 ADVANCE DIRECTIVE DISCUSSION Lemuel URRUTIA [place] [facility] Encounter Notes: All associated encounter notes This section contains the clinical notes associated to the Encounter. Date/Time Encounter Note(s) Provider Source Jul 28, 2024 01:30 PM MENTAL HEALTH ADMINISTRATIVE NOTE: LOCAL TITLE: MH JUSTICE PROGRAMS STANDARD TITLE: MENTAL HEALTH ADMINISTRATIVE NOTE DATE OF NOTE: JUL 28, 2024@13:30 ENTRY DATE: JUL 28, 2024@13:31 AUTHOR: NORTH RODRIGUEZ COSIGNER: URGENCY: STATUS: COMPLETED Justice Outreach (VJO) Program Provider: JUAN Arellano Scope: Case Management Dx: Legal Circumstances 65.3 ICD-10 Length: 15 minutes [facility] Out[facility]- [facility] Date of Court: 07/28/2024 Current status: Parliamentary Counsel and Aurora presented to [facility]. was granted virtual attendance today due to a schedule conflict. Backend Developer engaged in review of overall well-being and recent activity since last court session. reported that he has been doing well overall and has been attending classes. Aurora voiced ongoing sobriety and reviewed current efforts toward engagement in mental health services (including individual therapy through [facility], which will begin next week, and attending peer support services). Aurora had reported to [facility] lead case manager that he recently had an urge to use alcohol, but was able to rely on coping skills to resist the urge. reviewed this event with and praised him for his efforts. Aurora denied any immediate needs with which VTC or VJO can assist. was encouraged to maintain compliance with VTC, probation, and VJO. Next court date: 08/11/2024 /samuel/ JUAN Arellano TEAM OTR TRUCK DRIVER Signed: 07/28/2024 14:03 NORTH RODRIGUEZ [facility]
--- OUTSIDE RECORDS SUMMARY | 2024-08-19 10:35 | XMS_ITS | Encounter Summary ---
Author Name [facility] [place] Address [address] [place] [address] Care Team Providers Care Social Services Aide Name Role Phone RAGINI BLANK Primary Care [...] Encounter Type Encounter Description Reason Provider Source October 20, 2023 12:06 PM Outpatient Encounter ADMIN PAT ACTIVTIES (MASNONCT) DANIEL OSORIO Encounter Template Text not used by [place] Plan of Treatment: Future Appointments (+ 6 [...] 20 appointments. The data comes from all [place] treatment facilities. Appointment Date/Time Appointment Type Appointme nt Facility Name October 22, 2023 02:30 PM AMBULATORY - PSYCHIATRY [facility] October 26, 2023 11:00 AM AMBULATORY - MEDICINE [facility] October 29, 2023 09:00 AM AMBULATORY - PSYCHIATRY [facility] October 31, 2023 03:42 AM AMBULATORY - NONE [facility] November 05, 2023 09:00 AM AMBULATORY - PSYCHIATRY [facility] Nov 08, 2023 09:00 AM AMBULATORY - PSYCHIATRY [facility] Dec 28, 2023 04:30 PM AMBULATORY - NONE [facility] Jan 13, 2024 03:25 PM AMBULATORY - NONE [facility] Mar 05, 2024 09:07 PM [facility] Mar 13, 2024 11:00 AM AMBULATORY - PSYCHIATRY [facility] Mar 14, 2024 02:00 PM AMBULATORY - PSYCHIATRY [facility] Apr 07, 2024 10:00 AM AMBULATORY - PSYCHIATRY [facility] Apr 18, 2024 11:00 AM AMBULATORY - PSYCHIATRY [facility] Active, Pending, and Scheduled Orders This section includes a listing of several types of active, pending, and scheduled orders, including clinic medications orders, diagnostic test orders, procedure orders and consult orders; where the start date of the order is 45 days before the date of the Encounter or 45 days after the date of theEncounter. The data comes from all [facility] facilities. Test Date/Time Test Type Test Details Facility Name October 18, 2023 12:00 AM Laboratory - Chemi stry Order QFTB-PANEL BLOOD SPECIAL TUBE PLASMA SP ONCE [facility] Nov 08, 2023 12:00 AM Laboratory - Chemi stry Order COVID-19 SCREENING PANEL (CEPHEID) NASOPHARYNGEAL SWAB NASOPHARYNX SP [facility] Lab Results: +/- 30 days of the encounter This section includes the Chemistry and Hematology Lab Results on record with [place] for the patient. Radiology Reports and Pathology Reports are provided separately, in subsequent sections. Lab Results This section contains the Chemistry/Hematology Results that were resulted 30 days before or 30 daysafter the date of the Encounter. Date/Time Source Result Type Result - Unit Interpretation Reference Range Comment October 19, 2023 07:35 AM [facility] HEPATIC PANEL Specimen Type: PLASMA Comment: Glucose results >300 mg/dL OR Total Protein >10 g/dL may interfere with Creatinine result Ordering Provider: ERIK DE LA CRUZ Report Released Date/Time: October 18, 2023 04:12 PM Reporting Lab: [address] Performing Lab: [address] PROTEIN, TOTAL 7.2 g/dL 6.0-8.2 ALBUMIN 4.0 g/dL 3.5-5.0 TOT. BILIRUBIN 1.1 mg/dL 0.1-1.5 DIR. BILIRUBIN 0.3 mg/dL 0.0-0.5 ALKALINE PHOSPHATASE 56 U/L 40-134 AST/SGOT 39 U/L 5-40 ALT/SGPT 29 U/L 0-55 October 19, 2023 07:35 AM [facility] RENAL PROFILE Specimen Type: PLASMA Comment: Glucose results >300 mg/dL OR Total Protein >10 g/dL may interfere with Creatinine result Ordering Provider: ERIK DE LA CRUZ Report Released Date/Time: October 18, 2023 04:12 PM Reporting Lab: [address] Performing Lab: [address] CREATININE 1.0 mg/dL 0.5-1.5 UREA NITROGEN 12 mg/dL 5-23 SODIUM 138 mmol/L 136-145 POTASSIUM 3.8 mmol/L 3.5-5.0 CHLORIDE 101 mmol/L 98-107 CO2 26 meq/L 20-30 CALCIUM 9.4 mg/dL 8.4-10.4 GLUCOSE, RANDOM 99 mg/dL 70-180 EGFR (CKD-EPI 2020) >90 mL/min/{1.73_ m2} >60 October 19, 2023 07:35 AM [facility] CBC ([id number]) Specimen Type: BLOOD No comment entered. Ordering Provider: ERIK DE LA CRUZ Report Released Date/Time: October 18, 2023 04:12 PM Reporting Lab: [address] Performing Lab: [address] IG% 0.3 <0.6 IG# 0.02 10*3/uL <0.10 WBC ([id number]) 6.39 10*3/uL 4.0-11.0 RBC (LX3840) 4.98 10*6/uL 4.6-6.2 HGB (KQ3829) 15.2 g/dL 13.5-17.9 HCT (GI3921) 45.8 41.0-54.0 MCV (FZ5191) 92.0 fL 80.0-100.0 MCH ([id number]) 30.5 pg 27.0-33.0 MCHC (MZ3608) 33.2 g/dL 32.0-36.5 PLT (QI4109) 167 10*3/uL 150-450 RDW-CV (KR6734) 13.2 11.5-14.5 MPV (ML7037) 10.1 fL 9.4-12.4 LYMPHS % (FF0968) 40.8 15.0-45.0 LYMPHS # 2.61 10*3/uL 1.00-4.00 MONO % (MG0604) 6.4 2.0-12.0 MONO # 0.41 10*3/uL 0.10-1.00 EOS % (FD1417) 3.4 <6.0 EOS # 0.22 10*3/uL <0.50 BASO % (HG4679) 0.8 <2.0 BASO # 0.05 10*3/uL <0.20 NEUT % (WV0257) 48.3 40.0-80.0 NEUT # 3.08 10*3/uL 2.00-7.70 NRBC (MU1507) 0.0 <0 Social History: Smoking Status (Most current) and [...] 2018 12:58 PM VA-TOBACCO USE MED YES [facility] Tobacco Use History This section includes a history of the smoking, or tobacco-related health factors, that were collected on or before the date of the Encounter. The data comes from the [place] facility where the Encounter took place. 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 This section includes ALL of a patient's completed or amended [place] Advance and Rescinded Directives. The entries below indicate that a directive exists for the patient, but an actual copy is not included with this document. The [facility]. Date Advance Directives Provider Source Mar 31, 2023 ADVANCE DIRECTIVE DISCUSSION APOORVA KHANNA [facility] Nov 30, 2022 ADVANCE DIRECTIVE DISCUSSION ALEXANDER CONNOR [facility] Jun 17, 2016 ADVANCE DIRECTIVE DISCUSSION CAROLIN FIGUEROA AE [facility] Jun 10, 2016 CLINICAL WARNING AUGUSTINENAIDA JM [facility] October 07, 2015 ADVANCE DIRECTIVE DISCUSSION Lemuel URRUTIA [facility] Encounter Notes: All associated encounter notes This section contains the clinical notes associated to the Encounter. Date/Time Encounter Note(s) Provider Source October 20, 2023 12:06 PM LASTING MACHINE OPERATOR REFER RAL NOTE: LOCAL TITLE: TRAVELING/RELOCATING CONSULT STANDARD TITLE: LASTING MACHINE OPERATOR REFERRAL NOTE DATE OF NOTE: OCTOBER 20, 2023@12:06 ENTRY DATE: OCTOBER 20, 2023@12:06:43 AUTHOR: DANIEL OSORIO EXP COSIGNER: URGENCY: STATUS: COMPLETED [facility]: [facility] Submitted informational consult for non-VA ED/Hospital care, please see Referral Nursing Home Director Consult and provide f/u as appropriate. PACT team co- signed of notification. Consult complete. Emergency Notification Date Presenting to the Facility: October Method of Contact: [facility] Name: Hospital: [facility] City: [facility] State: [place] Chief complaint: ETOH Intoxication Diagnosis 1. Alcoholic intoxication without complication 2. Alcohol dependence with unspecified alcohol-induced disorder 3. PTSD (post-traumatic stress disorder) Disposition Discharged Date of discharge: October Discharge to Comment: [facility] Records Available: 10/17/2023 ED/DC received and sent to scanning and MAY also be available in [facility]: [facility] Summaries and Documents Notification ID: [id number] Clinical Review This is a notification that the assigned was admitted or presented to the ER, please facilitate any referrals for services or orders as indicated Inter-facility Information Remote Facility: [facility] Ordering Provider: MONI BELTRAN Remote Consult # [id number] Role: Consulting facility /samuel/ JAVAN YA TRAVELING COORDINATOR Signed: 10/20/2023 12:07 Receipt Acknowledged By: 10/20/2023 15:00 /samuel/ VENU MCGREGOR REGISTERED NURSE 10/20/2023 13:05 /samuel/ RAGINI BLANK DNP,DELINQUENT TAX COLLECTION ASSISTANT,DANIEL TERESA [facility]
--- OUTSIDE RECORDS SUMMARY | 2024-08-19 10:36 | XMS_ITS | Encounter Summary ---
Author Name [facility] [place] Organization [facility] [place] Address [address] [place] [address] Care Team Providers Care Awning Maker And Installer Name Role Phone RAGINI BLANK Primary [...] section includes the information on record at [place] for the Encounter. Date/Time Encounter Type Encounter Description Reason Pro vider Source May 17, 2024 02:56 PM Outpatient Encounter CLINICAL PHARMACY IHE Encounter Template Text not used by [place] Plan of Treatment: Future Appointments (+ 6 months) and Future Tests (+/- 45 days) The Plan of Treatment section includes future care activities for the patient from all [place] treatmentfacilities. This section includes future appointments and future orders which are active, pending or scheduled. Future Appointments This section includes appointments that were scheduled to occur 6 months from the date of the Encounter, up to a maximum of 20 appointments. The data comes from all [place] treatment facilities. Appointment Date/Time Appointment Type Appointme nt Facility Name May 26, 2024 10:00 AM AMB[facility]ATORY [facility] Jun 12, 2024 01:00 PM AMBULATORY [facility] PS[facility]ATRY [facility] Jun 15, 2024 03:30 PM AMBULATORY - PSYCHIATRY [facility] Jul 17, 2024 11:00 AM AMBULATORY - NONE [facility] Jul 18, 2024 07:01 AM AMBULATORY - NONE [facility] Jul 18, 2024 10:30 AM AMBULATORY [...] of theEncounter. The data comes from all [place] treatment facilities. Test Date/Time Test Type Test Details Facility Name May 10, 2024 04:38 PM Laboratory - Chemi stry Order DRUG SCREEN PANEL,URINE URINE WC ONCE [facility] May 11, 2024 08:54 AM Laboratory - Chemi stry Order PERIPHERAL SMEAR PATHOLOGIST REVIEW BLOOD WC ONCE [facility] Lab Results: +/- 30 days of the encounter This section includes the Chemistry and Hematology Lab Results on record with [place] for the patient. Radiology Reports and Pathology Reports are provided separately, in subsequent sections. Lab Results This section contains the Chemistry/Hematology Results that were resulted 30 days before or 30 daysafter the date of the Encounter. Date/Time Source Result Type Result - Unit Interpretation Reference Range Comment May 11, 2024 07:53 AM [facility] CBC Specimen Type: BLOOD No comment entered. Ordering Provider: ATIF CANSECO Report Released Date/Time: May 10, 2024 07:15 PM Reporting Lab: [facility] [phone] Performing Lab: [facility] [phone] WBC 5.1 4.0-11.0 RBC 4.19 L 4.60-6.20 HGB 12.5 g/dL L 13.5-17.9 HCT 36.6 L 41.0-54.0 MCV 87.4 fL 80.0-100.0 MCH 29.8 pg 27.0-33.0 MCHC 34.2 g/dL 32.0-37.5 PLT 74 L 150-400 MPV 10.6 fL 9.1-13.0 RDW 13.3 11.5-14.5 IPF 5.6 0-10 May 11, 2024 07:53 AM [facility] ALBUMIN Specimen Type: PLASMA No comment entered. Ordering Provider: ATIF CANSECO Report Released Date/Time: May 10, 2024 07:15 PM Reporting Lab: [facility] [address] Performing Lab: [facility] [address] ALBUMIN 3.7 g/dL 3.5-5.0 May 11, 2024 07:53 AM [facility] PHOSPHORUS Specimen Type: PLASMA No comment entered. Ordering Provider: ATIF CANSECO Report Released Date/Time: May 10, 2024 08:52 PM Reporting Lab: [facility] [phone] Performing Lab: [facility] [address] PHOSPHORUS 2.6 mg/dL 2.3-4.3 May 11, 2024 07:53 AM [facility] COMPREHENSIVE METABOLIC PANEL+MG Specimen Type: PLASMA No comment entered. Ordering Provider: ATIF CANSECO Report Released Date/Time: May 10, 2024 07:15 PM Reporting Lab: [facility] [address] Performing Lab: [facility] [address] CREATININE 0.8 mg/dL 0.7-1.2 UREA NITROGEN 11 [...] <0.5 May 10, 2024 09:08 PM [facility] DRUG SCREEN PANEL,URINE Specimen Type: URINE Comment: Presumptive Positive by screen, results not confirmed. Glucose present in urine. No yeast detected. Ordering Provider: ATIF CANSECO Report Released Date/Time: May 10, 2024 07:15 PM Reporting Lab: [facility] [address] Performing Lab: [facility] [address] BARBITURATES Negative Negative AMPHETAMINES Negative Negative COCAINE Negative Negative BENZODIAZEPINES Negative Negative CANNABINOIDS POSITIVE H Negative METHADONE Negative Negative OPIATES Negative Negative PHENCYCLIDINE Negative Negative ETHANOL,URINE POSITIVE H Negative DRUG SCREEN CREAT 298.7 mg/dL >20.0 OXYCODONE Negative Negative BUPRENORPHINE Negative Negative TRAMADOL Negative Negative FENTANYL Negative Negative DRUG SCREEN GLUCOSE POSITIVE Negative May 10, 2024 04:50 PM [facility] LIPASE Specimen Type: PLASMA No comment entered. Ordering Provider: PAXTON DAY Report Released Date/Time: May 10, 2024 04:38 PM Reporting Lab: [facility] [address] Performing Lab: [facility] [address] LIPASE 49 U/L <60 May 10, 2024 04:50 PM [facility] ETHANOL Specimen Type: PLASMA No comment entered. Ordering Provider: PAXTON DAY Report Released Date/Time: May 10, 2024 04:38 PM Reporting Lab: [facility] [address] Performing Lab: [facility] [address] ETHANOL 286 mg/dL NEGATIVE May 10, 2024 04:50 PM [facility] PHOSPHORUS Specimen Type: PLASMA No comment entered. Ordering Provider: ATIF CANSECO Report Released Date/Time: May 10, 2024 07:15 PM Reporting Lab: [facility] [address] Performing Lab: [facility] [address] PHOSPHORUS 1.8 mg/dL L 2.3-4.3 May 10, 2024 04:50 PM [facility] ACETAMINOPHEN Specimen Type: PLASMA No comment entered. Ordering Provider: ATIF CANSECO Report Released Date/Time: May 10, 2024 07:15 PM Reporting Lab: [facility] [address] Performing Lab: [facility] [address] ACETAMINOPHEN <3.0 ug/mL L 10.0-30.0 May 10, 2024 04:50 PM [facility] SALICYLATE Specimen Type: SERUM No comment entered. Ordering Provider: ATIF CANSECO Report Released Date/Time: May 10, 2024 07:15 PM Reporting Lab: [facility] [address] Performing Lab: [facility] [address] SALICYLATE <5.0 mg/dL L 15.0-30.0 May 10, 2024 04:50 PM [facility] COMPREHENSIVE METABOLIC PANEL+MG Specimen Type: PLASMA No comment entered. Ordering Provider: PAXTON DAY Report Released Date/Time: May 10, 2024 04:38 PM Reporting Lab: [facility] [address] Performing Lab: [facility] [address] CREATININE 0.8 mg/dL 0.7-1.2 UREA NITROGEN 14 [...] >60 May 10, 2024 04:50 PM [facility] CBC & DIFF Specimen Type: BLOOD Comment: Automated Differential Performed Ordering Provider: PAXTON DAY Report Released Date/Time: May 10, 2024 04:38 PM Reporting Lab: [facility] [address] Performing Lab: [facility] [address] WBC 5.5 4.0-11.0 RBC 5.10 4.60-6.20 HGB [...] EOS 0.0 0.0-0.5 ABS BASO 0.0 0.0-0.2 IG(META,MYELO,KS O) 0.2 ABS IMMATURE GRAN 0.0 0.0-0.1 IPF 4.5 0-10 May 10, 2024 04:30 PM [facility] EXTRA GOLD GEL TUBE Specimen Type: SERUM No comment entered. Ordering Provider: PAXTON DAY Report Released Date/Time: May 10, 2024 05:15 PM Reporting Lab: [facility] [address] Performing Lab: [facility] [address] EXTRA GOLD GEL TUBE RECEIVED May 05, 2024 03:27 PM [facility] ACT PART THROMBO TIME Specimen Type: PLASMA No comment entered. Ordering Provider: MARIA ELENA HARPER Report Released Date/Time: May 05, 2024 03:27 PM Reporting Lab: [facility] [address] Performing Lab: [facility] [address] APTT 31.1 s 25.1-36.5 May 05, 2024 03:27 PM [facility] ETHANOL Specimen Type: PLASMA No comment entered. Ordering Provider: MARIA ELENA HARPER Report Released Date/Time: May 05, 2024 03:27 PM Reporting Lab: [facility] [address] Performing Lab: [facility] [address] ETHANOL 443 mg/dL NEGATIVE May 05, 2024 03:27 PM [facility] PROTHROMBIN TIME/INR Specimen Type: PLASMA No comment entered. Ordering Provider: MARIA ELENA HARPER Report Released Date/Time: May 05, 2024 03:27 PM Reporting Lab: [facility] [address] Performing Lab: [facility] [address] .INR 0.9 0.8-1.1 .PT 10.6 s 9.4-12.5 May 05, 2024 03:27 PM [facility] EXTRA GOLD GEL TUBE Specimen Type: SERUM No comment entered. Ordering Provider: MARIA ELENA HARPER Report Released Date/Time: May 05, 2024 03:38 PM Reporting Lab: [facility] [address] Performing Lab: [facility] [address] EXTRA GOLD GEL TUBE RECEIVED May 05, 2024 03:27 PM [facility] COMPREHENSIVE METABOLIC PANEL+MG Specimen Type: PLASMA No comment entered. Ordering Provider: MARIA ELENA HARPER Report Released Date/Time: May 05, 2024 03:27 PM Reporting Lab: [facility] [address] Performing Lab: [facility] [address] CREATININE 0.7 mg/dL 0.7-1.2 UREA NITROGEN 15 [...] >60 May 05, 2024 03:27 PM [facility] CBC & DIFF Specimen Type: BLOOD Comment: Automated Differential Performed Ordering Provider: MARIA ELENA HARPER Report Released Date/Time: May 05, 2024 03:27 PM Reporting Lab: [facility] [address] Performing Lab: [facility] [address] WBC 8.9 4.0-11.0 RBC 5.15 4.60-6.20 HGB [...] EOS 0.0 0.0-0.5 ABS BASO 0.1 0.0-0.2 IG(META,MYELO,KS O) 0.2 ABS IMMATURE GRAN 0.0 0.0-0.1 Social History: Smoking Status (Most current) and Tobacco Use (All prior to encounter date) This section includes the most current, and the historical, smoking and tobacco- related health factors from the [place] facility where the Encounter took place. Current Smoking Status This section includes the most current smoking, or tobacco-related health factor, from the [place] facility where the Encounter took place. Date/Time Current Smoking Status Comment Facil ity May 17, 2024 02:30 PM VA-TOBACCO USE EVERY DAY CIGARET [facility] Tobacco Use History This section includes a history of the smoking, or tobacco-related health factors, that were collected on or before the date of the Encounter. The data comes from the [place] facility where the Encounter took place. Date/Time Smoking Status/Tobacco Use Comment F acility May 17, 2024 02:30 PM VA-TOBACCO USE EVERY DAY CIGARET [facility] November 01, 2018 12:58 PM VA-TOBACCO DOESNT USE WI 30 MIN WAKEUP [facility] November 01, 2018 12:58 PM VA-TOBACCO USE 5 TO 15 YEARS [facility] November 01, 2018 12:58 PM VA-TOBACCO USE ADVICE [facility] November 01, 2018 12:58 PM VA-TOBACCO USE TIP CUTTER YES [facility] November 01, 2018 12:58 PM VA-TOBACCO USE MED YES [facility] November 01, 2018 12:58 PM VA-TOBACCO USER EVERY DAY [facility] Aug 05, 2017 02:28 PM CURRENT TOBACCO USER [facility] Jun 10, 2016 02:39 PM INPT TOBACCO COUNSELING [facility] Jun 10, 2016 02:39 PM INPT TOBACCO USER [facility] Jun 10, 2016 08:23 AM CURRENT TOBACCO USER [facility] Advance Directives: All historical and current Section Date Range: From patient's date of to the date document was created. This section includes ALL of a patient's completed or amended [place] Advance and Rescinded Directives. The entries below indicate that a directive exists for the patient, but an actual copy is not included with this document. The data comes from all [facility]. Date Advance Directives Provider Source Mar 31, 2023 ADVANCE DIRECTIVE DISCUSSION APOORVA KHANNA [facility] Nov 30, 2022 ADVANCE DIRECTIVE DISCUSSION ALEXANDER CONNOR [facility] Jun 17, 2016 ADVANCE DIRECTIVE DISCUSSION CAROLIN FIGUEROA AE [facility] Jun 10, 2016 CLINICAL WARNING NAIDA BRADSHAW [facility] October 07, 2015 ADVANCE DIRECTIVE DISCUSSION Lemuel URRUTIA [facility] Radiology Reports: +/- 30 days [...] the Encounter. The [facility]. Date/Time Radiology Report Provider Source May 05, 2024 03:[address] HEAD (P): SHAQUILLE ALARCON [id number] -1990 M Exm Date: MAY 05, 2024@15:44 Req Phys: GIL HARPER Loc: [facility] EMERGENCY DEPT WALK-IN (Re Im Loc: CT IMAGING Service: [place] [address] (Case [id number] COMPLETE) CT HEAD/BRAIN W/O CONTRAST (CT Detailed) CPT:55492 Reason for Study: fall headache Clinical History: [...] PLASMA .CREAT EGFR(CKD-E >90 Ref: >=60 Allergies: ([place] only) Patient has answered NKA Defer to radiologist for final CT protocol. My pager number on record is: . The pager number above is NOT correct and I have entered my correct pager number below: [phone] Trainees only: Enter your staff provider's info here: Per Joint Commission Standards, by signing this diagnostic imaging request the ordering provider confirms they have considered patients age and recent imaging history. Report Status: Verified Date Reported: MAY 05, 2024 Date Verified: MAY 05, 2024 Bag Patcher E-Sig:/ES/BILL FLETCHER MD Report: EXAM: CT HEAD/BRAIN [...] Primary Interpreting Staff: BILL FLETCHER MD, RADIOLOGIST (Bag Patcher) /BILL HAIDER [facility] Encounter Notes: All associated [...] about the topic FOLLOW-UP RECOMMENDED: None needed /samuel/ MIKAYLA PRAKASH PharmD, BCPS PHARMACIST Signed: 05/17/2024 14:56 MIKAYLA PRAKASH [facility]
--- OUTSIDE RECORDS SUMMARY | 2024-08-19 10:36 | XMS_ITS | Encounter Summary ---
Author Name [facility] [place] Address [address] [place] [address] Care Team Providers Care Special Deputy Sheriff Name Role Phone ABHAY RAGINI Primary Care [...] section includes the information on record at [place] for the Encounter. Date/Time Encounter Type Encounter Description Reason Pro vider Source Jul 13, 2024 04:10 PM Outpatient Encounter COMMUNITY CARE CONSULT IHE Encounter Template Text not used by [place] Plan of Treatment: Future Appointments (+ 6 months) and Future Tests (+/- 45 days) The Plan of Treatment section includes future care activities for the patient from all [place] treatmentfacilities. This section includes future appointments and future orders which are active, pending or scheduled. Future Appointments This section includes appointments that were scheduled to occur 6 months from the date of the Encounter, up to a maximum of 20 appointments. The data comes from all [place] treatment facilities. Appointment Date/Time Appointment Type Appointme nt Facility Name Jul 17, 2024 11:00 AM [facility] Jul 18, 2024 07:01 AM AMBULATORY - NONE [facility] Jul 18, 2024 10:30 AM AMBULATORY [...] of theEncounter. The data comes from all [place] treatment facilities. Test Date/Time Test Type Test Details Facility Name Jul 13, 2024 04:22 PM Consult Order COMMUNITY CARE-TREATMENT RESISTANT DEPRESSION Cons Patient Account Liaison's Choice [facility] Lab Results: +/- 30 days of the encounter This section includes the Chemistry and Hematology Lab Results on record with [place] for the patient. Radiology Reports and Pathology Reports are provided separately, in subsequent sections. Lab Results This section contains the Chemistry/Hematology Results that were resulted 30 days before or 30 daysafter the date of the Encounter. Date/Time Source Result Type Result - Unit Interpretation Reference Range Comment Jul 18, 2024 10:46 AM [facility] TSH W/REFLEX TO FREE T4 Specimen Type: PLASMA No comment entered. Ordering Provider: RAGINI BLANK Report Released Date/Time: Jul 18, 2024 10:39 AM Reporting Lab: [facility] [address] Performing Lab: [facility] [address] TSH 1.88 u[IU]/mL 0.35-4.94 Jul 18, 2024 10:46 AM [facility] HEMOGLOBIN A1C Specimen Type: BLOOD Comment: [...] Jul 18, 2024 10:39 AM Reporting Lab: [facility] [address] Performing Lab: [facility] [address] HEMOGLOBIN A1C 5.5 4.0-6.0 Jul 18, 2024 10:46 AM [facility] CALCIUM Specimen Type: PLASMA No comment entered. Ordering Provider: RAGINI BLANK Report Released Date/Time: Jul 18, 2024 10:39 AM Reporting Lab: [facility] [address] Performing Lab: [facility] [address] CALCIUM 9.5 mg/dL 8.4-10.2 Jul 18, 2024 10:46 AM [facility] CBC Specimen Type: BLOOD No comment entered. Ordering Provider: RAGINI BLANK Report Released Date/Time: Jul 18, 2024 10:39 AM Reporting Lab: [facility] [address] Performing Lab: [facility] [address] WBC 6.2 4.0-11.0 RBC 5.01 4.60-6.20 HGB 15.2 g/dL 13.5-17.9 HCT 44.8 41.0-54.0 MCV 89.4 fL 80.0-100.0 MCH 30.3 pg 27.0-33.0 MCHC 33.9 g/dL 32.0-37.5 PLT 234 150-400 MPV 10.1 fL 9.1-13.0 RDW 12.4 11.5-14.5 Jul 18, 2024 10:46 AM [facility] COMPREHENSIVE METABOLIC PANEL+MG Specimen Type: PLASMA No comment entered. Ordering Provider: RAGINI BLANK Report Released Date/Time: Jul 18, 2024 10:39 AM Reporting Lab: [facility] [address] Performing Lab: [facility] [address] CREATININE 0.9 mg/dL 0.7-1.2 UREA NITROGEN 11 [...] and tobacco- related health factors from the [place] facility where the Encounter took place. Current Smoking Status This section includes the most current smoking, or tobacco-related health factor, from the [place] facility where the Encounter took place. Date/Time Current Smoking Status Comment Facil ity May 17, 2024 02:30 PM VA-TOBACCO USE EVERY DAY CIGARET [facility] Tobacco Use History This section includes a history of the smoking, or tobacco-related health factors, that were collected on or before the date of the Encounter. The data comes from the [place] facility where the Encounter took place. Date/Time Smoking Status/Tobacco Use Comment F acility May 17, 2024 02:30 PM VA-TOBACCO USE EVERY DAY CIGARET [facility] November 01, 2018 12:58 PM VA-TOBACCO DOESNT USE WI 30 MIN WAKEUP [facility] November 01, 2018 12:58 PM VA-TOBACCO USE 5 TO 15 YEARS [facility] November 01, 2018 12:58 PM VA-TOBACCO USE ADVICE [facility] November 01, 2018 12:58 PM VA-TOBACCO USE VISUAL STYLIST YES [facility] November 01, 2018 12:58 PM VA-TOBACCO USE MED YES [facility] November 01, 2018 12:58 PM VA-TOBACCO USER EVERY DAY [facility] Aug 05, 2017 02:28 PM CURRENT TOBACCO USER [facility] Jun 10, 2016 02:39 PM INPT TOBACCO COUNSELING [facility] Jun 10, 2016 02:39 PM INPT TOBACCO USER [facility] [place] [facility] Jun 10, 2016 08:23 AM CURRENT TOBACCO USER [facility] Advance Directives: All historical and current Section Date Range: From patient's date of to the date document was created. This section includes ALL of a patient's completed or amended [place] Advance and Rescinded Directives. The entries below indicate that a directive exists for the patient, but an actual copy is not included with this document. The data comes from all [place] facilities. Date Advance Directives Provider Source Mar 31, 2023 ADVANCE DIRECTIVE DISCUSSION APOORVA KHANNA [facility] Nov 30, 2022 ADVANCE DIRECTIVE DISCUSSION ALEXANDER CONNOR [facility] Jun 17, 2016 ADVANCE DIRECTIVE DISCUSSION CAROLIN FIGUEROA AE [facility] Jun 10, 2016 CLINICAL WARNING NAIDA BRADSHAW [facility] October 07, 2015 ADVANCE DIRECTIVE DISCUSSION KELLEYLemuel [facility] Encounter Notes: All associated encounter notes This section contains the clinical notes associated to the Encounter. Date/Time Encounter Note(s) Provider Source Jul 13, 2024 04:10 PM NONVA NOTE: LOCAL TITLE: COMMUNITY CARE-REQUEST FOR SERVICE NOTE STANDARD TITLE: NONVA NOTE DATE OF NOTE: JUL 13, 2024@16:10 ENTRY DATE: JUL 13, 2024@16:11:17 AUTHOR: MEME SOLO EXP COSIGNER: URGENCY: STATUS: COMPLETED PACT: Please address Received referral for additional services from patient's [facility] TREATMENT RESISTANT DEPRESSION - Ketamine provider. Most recent referral on 07/11/2024. Please see RFS and notes uploaded to TREATMENT RESISTANT DEPRESSION consult #[id number] dated 12/31/2023 for details. RFS and records uploaded to [facility] note dated 06/06/2024 PerRFS: Next planned appt is n/a. Place new consult if clinically indicated. Please ensure plan of care communicated to [place] if new consult is not entered. Thank you. [facility] RN to contact with questions regarding this care: Clyde Pelayo RN /samuel/ Meme Solo fourchette sewer Insole Tacker Signed: 07/13/2024 16:14 Receipt Acknowledged By: 07/14/2024 10:36 /es/ HASEEB FLOWERS, SALES PLANNING MANAGER SALES PLANNING MANAGER, [facility] COMPUTER SYSTEMS SECURITY ANALYST, PRODUCE DEPARTMENT MANAGER 07/13/2024 16:18 /es/ AUBREY MATIAS MD STAFF PSYCHIATRIST [facility]
--- OUTSIDE RECORDS SUMMARY | 2024-08-19 10:36 | XMS_ITS | Clinical Summary ---
Author Organization [facility] Address [address] [place] [address] Care Team Providers Care Restaurant Greeter Name Role Phone None Reported, Pcp Primary Care Provider Unavail able Source Comments Patient records contain information from all sites at [facility]. For routine questions regarding patient records, call [phone] during business hours, M-F 8:00 AM - 5:00 PM Central Time. Record requests for emergency care only can be directed to [phone] at any time.[facility] Allergies No known active allergies Medications amphetamine-dext [...] patient's age to complete this topic Insurance [facility] Care Teams Restaurant Greeter Relationship Specialty Start Date End Date None Reported, Pcp PCP - General Family Medicine 08/25/23
--- OUTSIDE RECORDS SUMMARY | 2024-08-19 10:36 | XMS_ITS | Encounter Summary ---
Author Name [facility] [place] Address [address] [place] [address] Care Team Providers Care Capacity Planning Manager Name Role Phone RAGINI BLANK Primary [...] Type Encounter Description Reason Pro vider Source October 29, 2023 04:37 PM Outpatient Encounter ADMIN PAT ACTIVTIES (MASNONCT) IHE [...] 20 appointments. The data comes from all [place] treatment facilities. Appointment Date/Time Appointment Type Appointme nt Facility Name October 31, 2023 03:42 AM AMBULATORY - NONE [place] [facility] November 05, 2023 09:00 AM AM[place] [facility] Nov 08, 2023 09:00 AM AMBULATORY - PSYCHIATRY [facility] Dec 28, 2023 04:30 PM AMBUL[facility]ORY [facility] NONE [facility] Jan 13, 2024 03:25 PM AMBULATORY - NONE [facility] Mar 05, 2024 09:07 PM AMBULATORY - MEDICINE [place] Mar 13, 2024 11:00 AM AMBUL[place]ORY [place] [facility] Mar 14, 2024 02:00 PM AMBUL[place]ORY [place]AT[place] [facility] Apr 07, 2024 10:00 AM AMBUL[place]ORY [place]AT[place] [facility] Apr 18, 2024 11:00 AM AMBUL[place]ORY [place]IAT[place] [facility] Apr 25, 2024 03:00 PM AMBULATORY - PSYCHIATRY [facility] Active, Pending, and Scheduled Orders This section [...] QFTB-PANEL BLOOD SPECIAL TUBE PLASMA SP ONCE [facility] Nov 08, 2023 12:00 AM Laboratory - Chemi stry Order COVID-19 SCREENING PANEL (CEPHEID) NASOPHARYNGEAL SWAB NASOPHARYNX SP [facility] Lab Results: +/- 30 days [...] Range Comment October 19, 2023 07:35 AM [facility] HEPATIC PANEL Specimen Type: PLASMA Comment: Glucose results >300 mg/dL OR Total Protein >10 g/dL may interfere with Creatinine result Ordering Provider: ERIK DE LA CRUZ Report Released Date/Time: October 18, 2023 04:12 PM Reporting Lab: [address] [phone] Performing Lab: [address] PROTEIN, TOTAL 7.2 g/dL 6.0-8.2 ALBUMIN 4.0 g/dL 3.5-5.0 TOT. BILIRUBIN 1.1 mg/dL 0.1-1.5 DIR. BILIRUBIN 0.3 mg/dL 0.0-0.5 ALKALINE PHOSPHATASE 56 U/L 40-134 AST/SGOT 39 U/L 5-40 ALT/SGPT 29 U/L 0-55 October 19, 2023 07:35 AM [facility] RENAL PROFILE Specimen Type: PLASMA Comment: Glucose results >300 mg/dL OR Total Protein >10 g/dL may interfere with Creatinine result Ordering Provider: ERIK DE LA CRUZ Report Released Date/Time: October 18, 2023 04:12 PM Reporting Lab: [address] Performing Lab: [address] CREATININE 1.0 mg/dL 0.5-1.5 UREA NITROGEN 12 mg/dL 5-23 SODIUM 138 mmol/L 136-145 POTASSIUM 3.8 mmol/L 3.5-5.0 CHLORIDE 101 mmol/L 98-107 CO2 26 meq/L 20-30 CALCIUM 9.4 mg/dL 8.4-10.4 GLUCOSE, RANDOM 99 mg/dL 70-180 EGFR (CKD-EPI 2020) >90 mL/min/{1.73_ m2} >60 October 19, 2023 07:35 AM [facility] CBC ([id number]) Specimen Type: BLOOD No comment entered. Ordering Provider: ERIK DE LA CRUZ Report Released Date/Time: October 18, 2023 04:12 PM Reporting Lab: [address] Performing Lab: [address] IG% 0.3 <0.6 IG# 0.02 10*3/uL <0.10 WBC ([id number]) 6.39 10*3/uL 4.0-11.0 RBC ([id number]) 4.98 10*6/uL 4.6-6.2 HGB (WC5483) 15.2 g/dL 13.5-17.9 HCT (KZ9334) 45.8 41.0-54.0 MCV (KZ3299) 92.0 fL 80.0-100.0 MCH (ST4364) 30.5 pg 27.0-33.0 MCHC (IQ8320) 33.2 g/dL 32.0-36.5 PLT (VH8785) 167 10*3/uL 150-450 RDW-CV (DM3020) 13.2 11.5-14.5 MPV (WC7630) 10.1 fL 9.4-12.4 LYMPHS % (VA2003) 40.8 15.0-45.0 LYMPHS # 2.61 10*3/uL 1.00-4.00 MONO % (CW9686) 6.4 2.0-12.0 MONO # 0.41 10*3/uL 0.10-1.00 EOS % (FR6136) 3.4 <6.0 EOS # 0.22 10*3/uL <0.50 BASO % (JW6634) 0.8 <2.0 BASO # 0.05 10*3/uL <0.20 NEUT % (MY3873) 48.3 40.0-80.0 NEUT # 3.08 10*3/uL 2.00-7.70 NRBC ([id number]) 0.0 <0 Social History: Smoking Status (Most [...] AM INPT TOBACCO USE - PT REFUSED [facility] Tobacco Use History This section includes a history of the smoking, or tobacco-related health factors, that were collected on or before the date of the Encounter. The data comes from the [place] facility where the Encounter took place. Date/Time Smoking Status/Tobacco Use Comment F acility Nov 27, 2022 08:00 AM [place]-TO[place]ACCO FORMER USER [facility] Nov 27, 2022 08:00 AM [place]-TO[place]ACCO QUIT < 1 YEAR [facility] Jun 15, 2016 12:43 PM CURRENT TOBACCO USER [facility] Advance Directives: All historical and current Section Date Range: From patient's date of to the date document was created. This section includes ALL of a patient's completed or amended [place] Advance and Rescinded Directives. The entries below indicate that a directive exists for the patient, but an actual copy is not included with this document. The data comes from all [place] facilities. Date Advance Directives Provider Source Mar 31, 2023 ADVANCE DIRECTIVE DISCUSSION HILLARYJARADAPOORVA [facility] Nov 30, 2022 ADVANCE DIRECTIVE DISCUSSION ALEXANDER CONNOR [facility] Jun 17, 2016 ADVANCE DIRECTIVE DISCUSSION CAROLIN FIGUEROA AE [facility] Jun 10, 2016 CLINICAL WARNING NAIDA BRADSHAW [facility] October 07, 2015 ADVANCE DIRECTIVE DISCUSSION Lemuel URRUTIA [facility] Encounter Notes: All associated encounter notes This section contains the clinical notes associated to the Encounter. Date/Time Encounter Note(s) Provider Source October 29, 2023 04:37 PM ADMINISTRATIVE NOT E: LOCAL TITLE: SCHEDULING NO SHOW NOTE SUBSEQUENT STANDARD TITLE: ADMINISTRATIVE NOTE DATE OF NOTE: OCTOBER 29, 2023@16:37 ENTRY DATE: OCTOBER 29, 2023@16:37:41 AUTHOR: LIYA CHESTER EXP COSIGNER: URGENCY: STATUS: COMPLETED SHAQUILLE ALARCON was a NO SHOW for appointment on October Contact attempt log following appointment no show: 2nd attempt on October Phone. - Phone number(s) used: [phone], intake team also called to RS and no answer - Left Message:No Call Unsuccessful No Answer /samuel/ LIYA CHESTER LPN LICENSED PRACTICAL NURSE Signed: 10/29/2023 16:39 LIYA CHESTER [facility]
--- OUTSIDE RECORDS SUMMARY | 2024-08-19 10:36 | XMS_ITS | Encounter Summary ---
Author Name [facility] [place] Address [address] [place] [address] Care Team Providers Care Sandwich And Drink Cart Operator Name Role Phone ABHAY RAGINI Primary Care [...] section includes the information on record at [place] for the Encounter. Date/Time Encounter Type Encounter Description Reason Provider Source Aug 18, 2024 11:12 AM Outpatient Encounter MENTAL [facility] AMALIA KINNEYHAMILTON SAAVEDRA Encounter Template Text not used by [place] Plan of Treatment: Future Appointments (+ 6 months) and Future Tests (+/- 45 days) The Plan of Treatment section includes future care activities for the patient from all [place] treatmentfacilities. This section includes future appointments and [...] of theEncounter. The data comes from all [place] treatment facilities. Test Date/Time Test Type Test Details Facility Name Jul 13, 2024 04:22 PM Consult Order COMMUNITY CARE-TREATMENT RESISTANT DEPRESSION Cons Docketing Specialist's Choice [facility] Social History: Smoking Status (Most current) and Tobacco Use (All prior to encounter date) This section includes the most current, and the historical, smoking and tobacco- related health factors from the [place] facility where the Encounter took place. Current Smoking Status This section includes the most current smoking, or tobacco-related health factor, from the [place] facility where the Encounter took place. Date/Time Current Smoking Status Comment Facil ity May 17, 2024 02:30 PM VA-TOBACCO USE EVERY DAY CIGARET [facility] Tobacco Use History This section includes a history of the smoking, or tobacco-related health factors, that were collected on or before the date of the Encounter. The data comes from the [place] facility where the Encounter took place. Date/Time Smoking Status/Tobacco Use Comment F acility May 17, 2024 02:30 PM VA-TOBACCO USE EVERY DAY CIGARET [facility] November 01, 2018 12:58 PM VA-TOBACCO DOESNT USE WI 30 MIN WAKEUP [facility] November 01, 2018 12:58 PM VA-TOBACCO USE 5 TO 15 YEARS [facility] November 01, 2018 12:58 PM VA-TOBACCO USE ADVICE [facility] November 01, 2018 12:58 PM VA-TOBACCO USE PLATE SHOP HELPER YES [facility] November 01, 2018 12:58 PM VA-TOBACCO USE MED YES [facility] November 01, 2018 12:58 PM VA-TOBACCO USER EVERY DAY [facility] Aug 05, 2017 02:28 PM CURRENT TOBACCO USER [facility] Jun 10, 2016 02:39 PM INPT TOBACCO COUNSELING [facility] Jun 10, 2016 02:39 PM INPT TOBACCO USER [facility] Jun 10, 2016 08:23 AM CURRENT TOBACCO USER [facility] Advance Directives: All historical and current Section Date Range: From patient's date of to the date document was created. This section includes ALL of a patient's completed or amended [place] Advance and Rescinded Directives. The entries below indicate that a directive exists for the patient, but an actual copy is not included with this document. The data comes from all [facility]. Date Advance Directives Provider Source Mar 31, 2023 ADVANCE DIRECTIVE DISCUSSION APOORVA KHANNA [facility] Nov 30, 2022 ADVANCE DIRECTIVE DISCUSSION ALEXANDER CONNOR [facility] Jun 17, 2016 ADVANCE DIRECTIVE DISCUSSION CAROLIN FIGUEROA AE [facility] Jun 10, 2016 CLINICAL WARNING NAIDA BRADSHAW [facility] October 07, 2015 ADVANCE DIRECTIVE DISCUSSION Lemuel URRUTIA [facility] Encounter Notes: All associated encounter notes This section contains the clinical notes associated to the Encounter. Date/Time Encounter Note(s) Provider Source Aug 18, 2024 11:12 AM SUICIDE PREVENTION NOTE: LOCAL TITLE: REACH VET COORDINATOR NOTE STANDARD TITLE: SUICIDE PREVENTION NOTE DATE OF NOTE: AUG 18, 2024@11:12 ENTRY DATE: AUG 18, 2024@11:13:03 AUTHOR: CHARLEE KINNEY EXP COSIGNER: URGENCY: STATUS: COMPLETED I am the [facility] REACH VET Coordinator and have been informed that BALAJI MCKEON is a RECURRING [place] who might benefit from enhanced treatment. I have informed this [place]'s REACH VET provider, Dr. Moon, so that they can determine whether any additional steps (e.g., care enhancements, outreach, or other services) are clinically indicated at this time. REACH VET Recovery Engagement & Coordinator for Health - Veterans Enhanced Treatment As documented in REACHVET note from March 2024, Balaji Mckeon was originally identified with [facility] program. They are again on the monthly program list. Most recent Reach Vet Provider note 05/22/24. [facility] has been reviewed for information. Balaji Mckeon is followed by outpt MH providers from [facility]. [place] met with MAURICIO herrera since last review, lastly on 08/11/24. continues to get community MH care-Ketamine treatments and is seeing a therapist. attended a peer support group since last review. [place] has future MH appts scheduled. [place] is referred to most recent progress/contact note for current and care plan information. Should the 's outpatient MH providers have additional information for the REACHVET care plan review, they are invited to submit the information via a REACHVET PROVIDER NOTE. Outpt MH providers signed here for their care coordination/information. /samuel/ HASEEB HOGAN, JUAN Clinical Head Operator Sulfide(Suicide Prev Prog) Signed: 08/18/2024 11:19 CHARLEE KINNEY [facility]
--- OUTSIDE RECORDS SUMMARY | 2024-08-19 10:36 | XMS_ITS | Clinical Summary ---
Author Organization [facility] Address [address] [place] [id number] Care Team Providers Care Eye Specialist Name Role Phone Pcp, No Primary Care [...] on file Legal Sex Male 12:38 PM INFLATABLE BUILDINGS LAMINATOR Gender Identity Not on file Sexual Orientation [...] ANTI HIV 1/2 Today 04/12/2014 12:45 PM INFLATABLE BUILDINGS LAMINATOR from Last 3 Months or Most Recently Relevant to Health Maintenance Results * HIV 1&2 TODAY (04/12/2014 12:45 PM INFLATABLE BUILDINGS LAMINATOR) HIV-1/HIV-2 ANTIBODY Non-Reacti ve Non-Reacti ve 04/12/2014 2:19 PM INFLATABLE BUILDINGS LAMINATOR [facility] Blood specimen (specimen) BLOOD SPECIMEN / Unknown Venipuncture / Unknown 04/12/2014 12:45 PM INFLATABLE BUILDINGS LAMINATOR 04/12/2014 1:26 PM INFLATABLE BUILDINGS LAMINATOR Narrative [facility] - 04/12/2014 2:19 PM INFLATABLE BUILDINGS LAMINATOR HIV-1 p24 and HIV-1/HIV-2 Ab not detected us Queenie Enriquez MD SEND OUTS Final Res ult [facility] [address] [place] [address], [place] from Last 3 Months or Most Recently Relevant to Health Maintenance Insurance [facility] [facility] [place] [address] Advance Directives * Full Code (Latest Code Status on File) Date Activated Date Inactivated Comments 04/11/2014 8:13 PM 04/16/2014 4:15 PM Care Teams Eye Specialist Relationship Specialty Start Date End Date Pcp, No Demetrius PCP - General 04/11/14
--- OUTSIDE RECORDS SUMMARY | 2024-08-19 10:36 | XMS_ITS | Encounter Summary ---
Author Name [facility] [place] Organization [facility] [place] Address [address] [place] [address] Care Team Providers Care Children'S Program Coordinator Name Role Phone RAGINI BLANK Primary Care [...] section includes the information on record at ID for the Encounter. Date/Time Encounter Type Encounter Description Reason Provider Source Jul 20, 2024 02:00 PM SELF-HELP/PEER SVC PER 15MIN [facility] ICD-10-CM F43.10 Post-traumatic stress disorder, unspecified REBEKA MORA Yani Encounter Template Text not used by ID Assessments - Encounter Diagnoses This section includes the primary and secondary diagnoses documented for the Encounter. Date/Time Primary/Secondary Diagnosis Diagnosis Name Provider Source Jul 20, 2024 03:57 PM PRIMARY Post-traumatic stress disorder, unspecified REBEKA MORA [facility] Jul 20, 2024 03:57 PM SECONDARY Alcohol abuse with intoxication, unspecified REBEKA MORA [facility] Jul 20, 2024 03:57 PM SECONDARY Other recurrent depressive disorders REBEKA MORA [facility] Plan of Treatment: Future Appointments (+ 6 months) and Future Tests (+/- 45 days) The Plan of Treatment section includes future care activities for the patient from all [place] treatmentfacilities. This section includes future appointments and [...] of theEncounter. The data comes from all [place] treatment facilities. Test Date/Time Test Type Test Details Facility Name Jul 13, 2024 04:22 PM Consult Order COMMUNITY CARE-TREATMENT RESISTANT DEPRESSION Cons Special Education Para Professional's Choice [facility] Lab Results: +/- 30 days of the encounter This section includes the Chemistry and Hematology Lab Results on record with ID for the patient. Radiology Reports and Pathology Reports are provided separately, in subsequent sections. Lab Results This section contains the Chemistry/Hematology Results that were resulted 30 days before or 30 daysafter the date of the Encounter. Date/Time Source Result Type Result - Unit Interpretation Reference Range Comment Jul 18, 2024 10:46 AM [facility] TSH W/REFLEX TO FREE T4 Specimen Type: PLASMA No comment entered. Ordering Provider: RAGINI BLANK Report Released Date/Time: Jul 18, 2024 10:39 AM Reporting Lab: [facility] [phone] Performing Lab: [facility] [phone] TSH 1.88 u[IU]/mL 0.35-4.94 Jul 18, 2024 10:46 AM [facility] HEMOGLOBIN A1C Specimen Type: BLOOD Comment: Values [...] Jul 18, 2024 10:39 AM Reporting Lab: [facility] [id number] Performing Lab: [facility] [phone] HEMOGLOBIN A1C 5.5 4.0-6.0 Jul 18, 2024 10:46 AM [facility] CALCIUM Specimen Type: PLASMA No comment entered. Ordering Provider: RAGINI BLANK Report Released Date/Time: Jul 18, 2024 10:39 AM Reporting Lab: [facility] [phone] Performing Lab: [facility] [phone] CALCIUM 9.5 mg/dL 8.4-10.2 Jul 18, 2024 10:46 AM [facility] CBC Specimen Type: BLOOD No comment entered. Ordering Provider: RAGINI BLANK Report Released Date/Time: Jul 18, 2024 10:39 AM Reporting Lab: [facility] [phone] Performing Lab: [facility] [phone] WBC 6.2 4.0-11.0 RBC 5.01 4.60-6.20 HGB 15.2 g/dL 13.5-17.9 HCT 44.8 41.0-54.0 MCV 89.4 fL 80.0-100.0 MCH 30.3 pg 27.0-33.0 MCHC 33.9 g/dL 32.0-37.5 PLT 234 150-400 MPV 10.1 fL 9.1-13.0 RDW 12.4 11.5-14.5 Jul 18, 2024 10:46 AM [facility] COMPREHENSIVE METABOLIC PANEL+MG Specimen Type: PLASMA No comment entered. Ordering Provider: RAGINI BLANK Report Released Date/Time: Jul 18, 2024 10:39 AM Reporting Lab: [facility] [id number] Performing Lab: [facility] [phone] CREATININE 0.9 mg/dL 0.7-1.2 UREA NITROGEN 11 [...] and tobacco- related health factors from the [place] facility where the Encounter took place. Current Smoking Status This section includes the most current smoking, or tobacco-related health factor, from the ID facility where the Encounter took place. Date/Time Current Smoking Status Comment Facil ity May 17, 2024 02:30 PM VA-TOBACCO USE EVERY DAY CIGARET [place] [facility] Tobacco Use History This section includes a history of the smoking, or tobacco-related health factors, that were collected on or before the date of the Encounter. The data comes from the [place] facility where the Encounter took place. Date/Time Smoking Status/Tobacco Use Comment F acility May 17, 2024 02:30 PM VA-TOBACCO USE EVERY DAY CIGARET [place] [facility] November 01, 2018 12:58 PM VA-TOBACCO DOESNT USE WI 30 MIN WAKEUP [facility] November 01, 2018 12:58 PM VA-TOBACCO USE 5 TO 15 YEARS [facility] November 01, 2018 12:58 PM VA-TOBACCO USE ADVICE [facility] November 01, 2018 12:58 PM VA-TOBACCO USE QUALITY ASSURANCE ANALYST YES [facility] November 01, [...] 2016 02:39 PM INPT TOBACCO USER Johana [facility] Jun 10, 2016 08:23 AM CURRENT TOBACCO USER [facility] Advance Directives: All historical and current Section Date Range: From patient's date of to the date document was created. This section includes ALL of a patient's completed or amended [place] Advance and Rescinded Directives. The entries below indicate that a directive exists for the patient, but an actual copy is not included with this document. The data comes from all [place] facilities. Date Advance Directives Provider Source Mar 31, 2023 ADVANCE DIRECTIVE DISCUSSION APOORVA KHANNA [facility] Nov 30, 2022 ADVANCE DIRECTIVE DISCUSSION ALEXANDER CONNOR [facility] Jun 17, 2016 ADVANCE DIRECTIVE DISCUSSION ANDREACAROLIN PARADA SANA Lomeli [facility] Jun 10, 2016 CLINICAL WARNING KULDIPNAIDA BRANCH [facility] October 07, 2015 ADVANCE DIRECTIVE DISCUSSION Lemuel URRUTIA [facility] Encounter Notes: All associated encounter notes This section contains the clinical notes associated to the Encounter. Date/Time Encounter Note(s) Provider Source Jul 20, 2024 02:00 PM MENTAL HEALTH COUN SELING NOTE: LOCAL TITLE: PEER SUPPORT NOTE STANDARD TITLE: MENTAL HEALTH COUNSELING NOTE DATE OF NOTE: JUL 20, 2024@14:00 ENTRY DATE: JUL 20, 2024@15:56:05 AUTHOR: ERICA MORA COSIGNER: URGENCY: STATUS: COMPLETED PEER SUPPORT NOTE Has ADDENDA Group Title: SMART Recovery Peer Support Drop-In Group Modality: Group discussion conferencing via WebEx Coater: Ranjan Allen Peer Specialist Duration: 60min Number of participants:9 Informed Consent: At start of today's group, Veterans were provided with informed consent, which included (1) [place]'s participation/attendance would be construed as consent for today's telehealth Peer Support drop-in group; (2) discussion of Machine Heddle Cleaner's role; (3) limits of confidentiality and instances of mandated reporting; (4)Machine Heddle Cleaner's documentation standards for group; (5) Machine Heddle Cleaner's engagement in supervision, consultation and support with LIP; (6) behavioral expectations and safety, and (7) discussion of potential privacy risks and data charges associated with utilizing a third-libertarian application, in this instance [employer], encouraging all Veterans to discuss the same with their respective data service provider. was agreeable to participating in today's group. Group Discussion: The focus and topic of today's SMART Recovery group was on page 25 of the SMART Recovery book: Beliefs about urges. Veterans were given the opportunity to check-in and share how they have been doing since the last group, with any triggers and urges. Individual Participation: Salvador was able to give and receive support to other group members today. Lyford shared that he had a few urges, due to the weather and traffic. also shared that his urges only lasted a few minutes, and he was able to focus on what he would loss if he started drinking again. reports that he remains busy with school, which helps him maintain his sobriety. No SI/HI, plan, or intent was expressed in today's group session. Peer Support Interventions used: (X)Supportive listening (X)Role Modeling (X)Group Facilitation ( )Problem Solving ( )Advocacy ( )Crisis Intervention (X)Recovery Planning (X)Relapse Prevention (X)Education (X)Used own recovery story as a tool (X)Encouraged mutual support among members Diagnosis Per Chart:Posttraumatic stress disorder ([facility] [id number]) - Post- traumatic stress disorder, unspecified (ICD-10-CM F43.10) (Primary) Alcohol dependence ([facility] [id number]) - Alcohol dependence, uncomplicated (ICD-10-CM F10.20) Depressive disorder ([facility] [id number]) - Other recurrent depressive disorders (ICD-10-CM F33.8) Plan: [place]ford is encouraged to continue attending the SMART Recovery Drop-in Group as needed. Procedure: H0038 (Self-Help / Peer Support) /watson MORA SHRIMPING BOAT CAPTAIN Signed: 07/20/2024 15:57 Receipt Acknowledged By: 07/21/2024 13:59 /HASEEB Lynne, [facility] MENTAL HEALTH TOURIST INFORMATION OFFICER 07/21/2024 ADDENDUM STATUS: COMPLETED The primary Licensed Independent Provider (LIP) of this encounter has reviewed and assessed the Peer Store Standards Associate's work with this and concurs with the above. Concurrence is based on the integration of the Peer Store Standards Associate's input which is shared and discussed during recurring supervision/consultation with this mortgage or loan underwriter. The primary LIP did not provide direct care during the intervention noted above. /HASEEB Lynne, [facility] MENTAL HEALTH TOURIST INFORMATION OFFICER Signed: 07/21/2024 13:59 ERICA MORA [facility]
--- OUTSIDE RECORDS SUMMARY | 2024-08-19 10:36 | XMS_ITS | Encounter Summary ---
Author Name [facility] [place] Organization [facility] [place] Address [address] [place] [address] Care Team Providers Care District Recruiter Name Role Phone RAGINI BLANK Primary Care [...] section includes the information on record at [place] for the Encounter. Date/Time Encounter Type Encounter Description Reason Pro vider Source May 11, 2024 08:48 AM Inpatient Visit CLINICAL PHARMACY I[facility] Encounter Template Text not used by [place] Plan of Treatment: Future Appointments (+ 6 months) and Future Tests (+/- 45 days) The Plan of Treatment section includes future care activities for the patient from all [place] treatmentfacilities. This section includes future appointments and future orders which are active, pending or scheduled. Future Appointments This section includes appointments that were scheduled to occur 6 months from the date of the Encounter, up to a maximum of 20 appointments. The data comes from all [place] treatment facilities. Appointment Date/Time Appointment Type Appointme nt Facility Name May 15, 2024 11:00 AM AMBULATORY - PSYCHIATRY OR [facility] May 17, 2024 02:30 PM AMBULATORY - PS[facility]CHIATRY OR [facility] May 26, 2024 10:00 AM AMBULATORY - PSYCHIATRY OR [facility] Jun 12, 2024 01:00 PM [facility] Jun 15, 2024 03:30 PM AM[facility] - [facility] [place] [facility] Jul 17, 2024 11:00 AM [facility] Jul 18, 2024 07:01 AM [facility] Jul 18, 2024 10:30 AM [...] of theEncounter. The data comes from all [facility] facilities. Test Date/Time Test Type Test Details Facility Name May 10, 2024 04:38 PM Laboratory - Chemi stry Order DRUG SCREEN PANEL,URINE URINE WC ONCE [facility] May 11, 2024 08:54 AM Laboratory - Chemi stry Order PERIPHERAL SMEAR PATHOLOGIST REVIEW BLOOD WC ONCE [facility] Lab Results: +/- 30 days of the encounter This section includes the Chemistry and Hematology Lab Results on record with [place] for the patient. Radiology Reports and Pathology Reports are provided separately, in subsequent sections. Lab Results This section contains the Chemistry/Hematology Results that were resulted 30 days before or 30 daysafter the date of the Encounter. Date/Time Source Result Type Result - Unit Interpretation Reference Range Comment May 11, 2024 07:53 AM [facility] CBC Specimen Type: BLOOD No comment entered. Ordering Provider: ATIF CANSECO Report Released Date/Time: May 10, 2024 07:15 PM Reporting Lab: [facility] [phone] Performing Lab: [facility] [phone] WBC 5.1 4.0-11.0 RBC 4.19 L 4.60-6.20 HGB 12.5 g/dL L 13.5-17.9 HCT 36.6 L 41.0-54.0 MCV 87.4 fL 80.0-100.0 MCH 29.8 pg 27.0-33.0 MCHC 34.2 g/dL 32.0-37.5 PLT 74 L 150-400 MPV 10.6 fL 9.1-13.0 RDW 13.3 11.5-14.5 IPF 5.6 0-10 May 11, 2024 07:53 AM [facility] ALBUMIN Specimen Type: PLASMA No comment entered. Ordering Provider: ATIF CANSECO Report Released Date/Time: May 10, 2024 07:15 PM Reporting Lab: [facility] [phone] Performing Lab: [facility] [phone] ALBUMIN 3.7 g/dL 3.5-5.0 May 11, 2024 07:53 AM [facility] PHOSPHORUS Specimen Type: PLASMA No comment entered. Ordering Provider: ATIF CANSECO Report Released Date/Time: May 10, 2024 08:52 PM Reporting Lab: [facility] [phone] Performing Lab: [facility] [address] PHOSPHORUS 2.6 mg/dL 2.3-4.3 May 11, 2024 07:53 AM [facility] COMPREHENSIVE METABOLIC PANEL+MG Specimen Type: PLASMA No comment entered. Ordering Provider: ATIF CANSEOC Report Released Date/Time: May 10, 2024 07:15 PM Reporting Lab: [facility] [address] Performing Lab: [facility] [address] CREATININE 0.8 mg/dL 0.7-1.2 UREA NITROGEN 11 [...] mg/dL <0.5 May 10, 2024 09:08 PM [facility] DRUG SCREEN PANEL,URINE Specimen Type: URINE Comment: Presumptive Positive by screen, results not confirmed. Glucose present in urine. No yeast detected. Ordering Provider: ATIF CANSECO Report Released Date/Time: May 10, 2024 07:15 PM Reporting Lab: [facility] [phone] Performing Lab: [facility] [address] BARBITURATES Negative Negative AMPHETAMINES Negative Negative COCAINE Negative Negative BENZODIAZEPINES Negative Negative CANNABINOIDS POSITIVE H Negative METHADONE Negative Negative OPIATES Negative Negative PHENCYCLIDINE Negative Negative ETHANOL,URINE POSITIVE H Negative DRUG SCREEN CREAT 298.7 mg/dL >20.0 OXYCODONE Negative Negative BUPRENORPHINE Negative Negative TRAMADOL Negative Negative FENTANYL Negative Negative DRUG SCREEN GLUCOSE POSITIVE Negative May 10, 2024 04:50 PM [facility] LIPASE Specimen Type: PLASMA No comment entered. Ordering Provider: PAXTON DAY Report Released Date/Time: May 10, 2024 04:38 PM Reporting Lab: [facility] [address] Performing Lab: [facility] [address] LIPASE 49 U/L <60 May 10, 2024 04:50 PM [facility] ETHANOL Specimen Type: PLASMA No comment entered. Ordering Provider: PAXTON DAY Report Released Date/Time: May 10, 2024 04:38 PM Reporting Lab: [facility] [address] Performing Lab: [facility] [address] ETHANOL 286 mg/dL NEGATIVE May 10, 2024 04:50 PM [facility] PHOSPHORUS Specimen Type: PLASMA No comment entered. Ordering Provider: ATIF CANSECO Report Released Date/Time: May 10, 2024 07:15 PM Reporting Lab: [facility] [address] Performing Lab: [facility] [address] PHOSPHORUS 1.8 mg/dL L 2.3-4.3 May 10, 2024 04:50 PM [facility] ACETAMINOPHEN Specimen Type: PLASMA No comment entered. Ordering Provider: ATIF CANSECO Report Released Date/Time: May 10, 2024 07:15 PM Reporting Lab: [facility] [phone] Performing Lab: [facility] [address] ACETAMINOPHEN <3.0 ug/mL L 10.0-30.0 May 10, 2024 04:50 PM [facility] SALICYLATE Specimen Type: SERUM No comment entered. Ordering Provider: ATIF CANSECO Report Released Date/Time: May 10, 2024 07:15 PM Reporting Lab: [facility] [address] Performing Lab: [facility] [address] SALICYLATE <5.0 mg/dL L 15.0-30.0 May 10, 2024 04:50 PM [facility] COMPREHENSIVE METABOLIC PANEL+MG Specimen Type: PLASMA No comment entered. Ordering Provider: PAXTON DAY Report Released Date/Time: May 10, 2024 04:38 PM Reporting Lab: [facility] [phone] Performing Lab: [facility] [phone] CREATININE 0.8 mg/dL 0.7-1.2 UREA NITROGEN 14 [...] >90 >60 May 10, 2024 04:50 PM [facility] CBC & DIFF Specimen Type: BLOOD Comment: Automated Differential Performed Ordering Provider: PAXTON DAY Report Released Date/Time: May 10, 2024 04:38 PM Reporting Lab: [facility] [phone] Performing Lab: [facility] [address] WBC 5.5 4.0-11.0 RBC 5.10 4.60-6.20 HGB [...] EOS 0.0 0.0-0.5 ABS BASO 0.0 0.0-0.2 IG(META,MYELO,TN O) 0.2 ABS IMMATURE GRAN 0.0 0.0-0.1 IPF 4.5 0-10 May 10, 2024 04:30 PM [facility] EXTRA GOLD GEL TUBE Specimen Type: SERUM No comment entered. Ordering Provider: PAXTON DAY Report Released Date/Time: May 10, 2024 05:15 PM Reporting Lab: [facility] [address] Performing Lab: [facility] [address] EXTRA GOLD GEL TUBE RECEIVED May 05, 2024 03:27 PM [facility] ACT PART THROMBO TIME Specimen Type: PLASMA No comment entered. Ordering Provider: MARIA ELENA HARPER Report Released Date/Time: May 05, 2024 03:27 PM Reporting Lab: [facility] [address] Performing Lab: [facility] [address] APTT 31.1 s 25.1-36.5 May 05, 2024 03:27 PM [facility] ETHANOL Specimen Type: PLASMA No comment entered. Ordering Provider: MARIA ELENA HARPER A Report Released Date/Time: May 05, 2024 03:27 PM Reporting Lab: [facility] [address] Performing Lab: [facility] [address] ETHANOL 443 mg/dL NEGATIVE May 05, 2024 03:27 PM [facility] PROTHROMBIN TIME/INR Specimen Type: PLASMA No comment entered. Ordering Provider: MARIA ELENA HARPER Report Released Date/Time: May 05, 2024 03:27 PM Reporting Lab: [facility] [address] Performing Lab: [facility] [address] .INR 0.9 0.8-1.1 .PT 10.6 s 9.4-12.5 May 05, 2024 03:27 PM [facility] EXTRA GOLD GEL TUBE Specimen Type: SERUM No comment entered. Ordering Provider: MARIA ELENA HARPER Report Released Date/Time: May 05, 2024 03:38 PM Reporting Lab: [facility] [address] Performing Lab: [facility] [address] EXTRA GOLD GEL TUBE RECEIVED May 05, 2024 03:27 PM [facility] COMPREHENSIVE METABOLIC PANEL+MG Specimen Type: PLASMA No comment entered. Ordering Provider: MARIA ELENA HARPER Report Released Date/Time: May 05, 2024 03:27 PM Reporting Lab: [facility] [address] Performing Lab: [facility] [address] CREATININE 0.7 mg/dL 0.7-1.2 UREA NITROGEN 15 [...] >90 >60 May 05, 2024 03:27 PM [facility] CBC & DIFF Specimen Type: BLOOD Comment: Automated Differential Performed Ordering Provider: MARIA ELENA HARPER Report Released Date/Time: May 05, 2024 03:27 PM Reporting Lab: [facility] [phone] Performing Lab: [facility] [address] WBC 8.9 4.0-11.0 RBC 5.15 4.60-6.20 HGB [...] EOS 0.0 0.0-0.5 ABS BASO 0.1 0.0-0.2 IG(META,MYELO,TN O) 0.2 ABS IMMATURE GRAN 0.0 0.0-0.1 Vital Signs: All taken on the encounter date This section contains inpatient and outpatient Vital Signs collected on the date of the Encounter. Date/Time Temperature Pulse Blood Pressure Respiratory Rate SP02 Pain Height Weight Body Mass Index Source May 11, 2024 04:32 PM 98.6 95 127/77 18 98 0 [facility] May 11, 2024 01:08 PM 97.2 95 129/81 18 98 [facility] May 11, 2024 10:49 AM 97.4 93 116/70 16 97 [facility] May 11, 2024 08:04 AM 98.4 93 135/74 18 98 0 [facility] May 11, 2024 05:58 AM 98.0 96 132/71 16 96 [facility] Social History: Smoking Status (Most current) and Tobacco Use (All prior to encounter date) This section includes the most current, and the historical, smoking and tobacco- related health factors from the [place] facility where the Encounter took place. Current Smoking Status This section includes the most current smoking, or tobacco-related health factor, from the [place] facility where the Encounter took place. Date/Time Current Smoking Status Comment Facil ity November 01, 2018 12:58 PM VA-TOBACCO USE MED YES [facility] Tobacco Use History This section includes a history of the smoking, or tobacco-related health factors, that were collected on or before the date of the Encounter. The data comes from the [place] facility where the Encounter took place. Date/Time Smoking Status/Tobacco Use Comment F acility November 01, 2018 12:58 PM VA-TOBACCO USE 5 TO 15 YEARS [facility] November 01, 2018 12:58 PM VA-TOBACCO USE ADVICE [facility] November 01, 2018 12:58 PM VA-TOBACCO USE MULE SPINNER YES [facility] November 01, 2018 12:58 PM VA-TOBACCO USE MED YES [facility] November 01, 2018 12:58 PM VA-TOBACCO USER EVERY DAY [facility] Aug 05, 2017 02:28 PM CURRENT TOBACCO USER [facility] Jun 10, 2016 02:39 PM INPT TOBACCO COUNSELING [facility] Jun 10, 2016 02:39 PM INPT TOBACCO USER [facility] [facility] Jun 10, 2016 08:23 AM CURRENT TOBACCO USER [facility] Advance Directives: All historical and current Section Date Range: From patient's date of to the date document was created. This section includes ALL of a patient's completed or amended [place] Advance and Rescinded Directives. The entries below indicate that a directive exists for the patient, but an actual copy is not included with this document. The data comes from all [facility]. Date Advance Directives Provider Source Mar 31, 2023 ADVANCE DIRECTIVE DISCUSSION APOORVA KHANNA [facility] Nov 30, 2022 ADVANCE DIRECTIVE DISCUSSION ALEXANDER CONNOR [facility] Jun 17, 2016 ADVANCE DIRECTIVE DISCUSSION CAROLIN FIGUEROA AE [facility] Jun 10, 2016 CLINICAL WARNING NAIDA BRADSHAW [facility] October 07, 2015 ADVANCE DIRECTIVE DISCUSSION Lemuel URRUTIA [facility] Radiology Reports: +/- 30 days of the [...] the Encounter. The data comes from all [place] treatment facilities. Date/Time Radiology Report Provider Source May 05, 2024 03:[address] HEAD (P): SHAQUILLE ALARCON [id number] -[id number] M Exm Date: MAY 05, 2024@15:44 Req Phys: GIL HARPER Loc: [facility] EMERGENCY DEPT WALK-IN (Re Img Loc: CT IMAGING Service: [place] [address] (Case [id number] COMPLETE) CT HEAD/BRAIN W/O CONTRAST (CT Detailed) CPT:78913 Reason for Study: fall headache Clinical History: [...] PLASMA .CREAT EGFR(CKD-E >90 Ref: >=60 Allergies: (Watchung only) Patient has answered NKA Defer to radiologist for final CT protocol. My pager number on record is: . The pager number above is NOT correct and I have entered my correct pager number below: [phone] Trainees only: Enter your staff provider's info here: Per Joint Commission Standards, by signing this diagnostic imaging request the ordering provider confirms they have considered patients age and recent imaging history. Report Status: Verified Date Reported: MAY 05, 2024 Date Verified: MAY 05, 2024 Publicity Consultant E-Sig:/ES/BILL FLETCHER MD Report: EXAM: CT HEAD/BRAIN [...] Primary Interpreting Staff: BILL FLETCHER MD, RADIOLOGIST (Publicity Consultant) /BILL HAIDER [facility] Encounter Notes: All associated encounter notes [...] no relevant meds for the patient. See [facility] Emergency Department documentation for medications given during emergency department visit. Seasonal Influenza Immunization: None; stated they were not interested INTERVIEW Patient has been INTERVIEWED by pharmacy. Bayard states they self-manage their medications, and obtain all prescription medications from the [place] pharmacy. Patient reports last scheduled medication(s) were taken prior to admit other: a couple of days ago; believes it was either Wednesday or Wednesday (05/08-) Tobacco use within the last 30 days: Yes Type/Amount: cigarettes; a couple per day Interested in inpatient NRT? No Interested in outpatient NRT? No Interested in talking with pharmacist after discharge? No Allergies: FACILITY ALLERGY/ADR -------- [facility] No Known Allergies SONDRAJAZMIN Valentin [facility] NO KNOWN ALLERGIES [facility] NO KNOWN ALLERGIES validated no known [...] KETAMINE INJ,SOLN Statement/Explanation/Comme nt: since 07/2023 through [facility], weekly [facility] clinic location stated he last received a ketamine IV infusion last week but could not specify which day last week it was SHAQUILLE ALARCON Source of Info: [facility] [place] [facility] Drug Last Refills Qty Filled Remaining [...] /samuel/ MARGO CANSECO RESIDENT PHYSICIAN RHETT BERGERON [facility]
--- OUTSIDE RECORDS SUMMARY | 2024-08-19 10:36 | XMS_ITS | Encounter Summary ---
Author Name [facility] [place] Organization [facility] [place] [place] Address [address] [place] [address] Care Team Providers Care Wire Weaver Name Role Phone RAGINI BLANK Primary Care [...] Type Encounter Description Reason Provider Source Jul 11, 2024 03:50 PM Outpatient Encounter SUBSTANCE USE DISORDER IND STEPHANIA DIOP Encounter Template Text not used by [place] Plan of Treatment: Future Appointments (+ 6 months) and Future Tests (+/- 45 days) The Plan of Treatment section includes future care activities for the patient from all [place] treatmentfacilities. This section includes future appointments and future orders which are active, pending or scheduled. Future Appointments This section includes appointments that were scheduled to occur 6 months from the date of the Encounter, up to a maximum of 20 appointments. The data comes from all [place] treatment facilities. Appointment Date/Time Appointment Type Appointme nt Facility Name Jul 17, 2024 11:00 AM [facility] Jul 18, 2024 07:01 AM AMBULATORY [...] of theEncounter. The data comes from all [place] treatment facilities. Test Date/Time Test Type Test Details Facility Name Jul 13, 2024 04:22 PM Consult Order [facility] RESISTANT DEPRESSION Cons Licensed Psychologist's Choice [facility] Lab Results: +/- 30 days of [...] Range Comment Jul 18, 2024 10:46 AM [facility] HEMOGLOBIN A1C Specimen Type: BLOOD Comment: [...] Jul 18, 2024 10:39 AM Reporting Lab: [facility] [address] Performing Lab: [facility] [address] HEMOGLOBIN A1C 5.5 4.0-6.0 Jul 18, 2024 10:46 AM [facility] TSH W/REFLEX TO FREE T4 Specimen Type: PLASMA No comment entered. Ordering Provider: RAGINI BLANK Report Released Date/Time: Jul 18, 2024 10:39 AM Reporting Lab: [facility] [phone] Performing Lab: [facility] [address] TSH 1.88 u[IU]/mL 0.35-4.94 Jul 18, 2024 10:46 AM [facility] CALCIUM Specimen Type: PLASMA No comment entered. Ordering Provider: RAGINI BLANK Report Released Date/Time: Jul 18, 2024 10:39 AM Reporting Lab: [facility] [address] Performing Lab: [facility] [address] CALCIUM 9.5 mg/dL 8.4-10.2 Jul 18, 2024 10:46 AM [facility] CBC Specimen Type: BLOOD No comment entered. Ordering Provider: RAGINI BLANK Report Released Date/Time: Jul 18, 2024 10:39 AM Reporting Lab: [facility] [address] Performing Lab: [facility] [address] WBC 6.2 4.0-11.0 RBC 5.01 4.60-6.20 HGB 15.2 g/dL 13.5-17.9 HCT 44.8 41.0-54.0 MCV 89.4 fL 80.0-100.0 MCH 30.3 pg 27.0-33.0 MCHC 33.9 g/dL 32.0-37.5 PLT 234 150-400 MPV 10.1 fL 9.1-13.0 RDW 12.4 11.5-14.5 Jul 18, 2024 10:46 AM [facility] COMPREHENSIVE METABOLIC PANEL+MG Specimen Type: PLASMA No comment entered. Ordering Provider: RAGINI BLANK Report Released Date/Time: Jul 18, 2024 10:39 AM Reporting Lab: [facility] [address] Performing Lab: [facility] [address] CREATININE 0.9 mg/dL 0.7-1.2 UREA NITROGEN 11 [...] PM VA-TOBACCO USE EVERY DAY CIGARET [facility] Tobacco Use History This section includes a history of the smoking, or tobacco-related health factors, that were collected on or before the date of the Encounter. The data comes from the [place] facility where the Encounter took place. 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 Jun 10, 2016 CLINICAL WARNING NAIDA BRADSHAW [facility] October 07, 2015 ADVANCE DIRECTIVE DISCUSSION Lemuel URRUTIAMINERVA Rader [facility] Encounter Notes: All associated encounter notes This section contains the clinical notes associated to the Encounter. Date/Time Encounter Note(s) Provider Source Jul 12, 2024 12:46 PM MENTAL HEALTH SECU RE MESSAGING: LOCAL TITLE: MENTAL HEALTH SECURE MESSAGING STANDARD TITLE: MENTAL HEALTH SECURE MESSAGING DATE OF NOTE: JUL 12, 2024@12:46 ENTRY DATE: JUL 12, 2024@11:46:11 AUTHOR: STEPHANIA DIOP COSIGNER: URGENCY: STATUS: COMPLETED ------Original Message Sent: 07/11/2024 05:35 PM ET From: BALAJI ALARCON To: [facility] Mental Health ARS Team % Subject: General:Prior authorization needed In the past, I've notified Dr. Moon. That is what I'm trying to do. ------Original Message Sent: 07/12/2024 12:46 PM ET From: STEPHANIA DIOP To: BALAJI ALARCON Subject: General:Prior authorization needed Ruma Barraza for the message. Dr. Moon is out of clinic today I will discuss with her when she returns. Have a nice day! Stephania SNYDER [phone] /es/ STEPHANIA DIOP LPN STAFF NURSE Signed: 07/12/2024 11:46 STEPHANIA DIOP [facility] Jul 11, 2024 03:50 PM MENTAL HEALTH SECU RE MESSAGING: LOCAL TITLE: MENTAL HEALTH SECURE MESSAGING STANDARD TITLE: MENTAL HEALTH SECURE MESSAGING DATE OF NOTE: JUL 11, 2024@15:50 ENTRY DATE: JUL 11, 2024@14:50:28 AUTHOR: HUDYMA,STEPHANIA EXP COSIGNER: URGENCY: STATUS: COMPLETED ------Original Message Sent: 07/11/2024 11:33 AM ET From: BALAJI ALARCON To: [facility] Mental Health ARS Team % Subject: General:Prior authorization needed Hi. I had an appt scheduled for this Wednesday for an infusion, it was canceled because the remedy has not received the prior authorization from the [place] yet. ------Original Message Sent: 07/11/2024 03:50 PM ET From: STEPHANIA DIOP To: BALAJI ALARCON Subject: General:Prior authorization needed HI Balaji, I would try calling [facility] at [phone] they should be able to assist you. Thank you. Stephania SNYDER [phone] /es/ STEPHANIA DIOP LPN STAFF NURSE Signed: 07/11/2024 14:50 STEPHANIA DIOP [facility]
--- OUTSIDE RECORDS SUMMARY | 2024-08-19 10:36 | XMS_ITS | Encounter Summary ---
Author Name [facility] [place] [facility] [place] Address [address] [place] [address] Care Team Providers Care Rigging Up Worker Name Role Phone RAGINI BLANK Primary Care [...] Type Encounter Description Reason Provider Source Jul 27, 2024 02:00 PM SELF-HELP/PEER SVC PER 15MIN [facility] ICD-10-CM F10.129 Alcohol abuse with intoxication, unspecified REBEKA MORA Yani Encounter Template Text not used by [place] Assessments - Encounter Diagnoses This section includes the primary and secondary diagnoses documented for the Encounter. Date/Time Primary/Secondary Diagnosis Diagnosis Name Provider Source Jul 28, 2024 11:20 AM PRIMARY Alcohol abuse with intoxication, unspecified LOBITO MORA [facility] Jul 28, 2024 11:20 AM SECONDARY Other recurrent depressive disorders LOBITO MORA [facility] Jul 28, 2024 11:20 AM SECONDARY Post-traumatic stress disorder, unspecified LOBITO MORA [facility] Jul 28, 2024 11:20 AM SECONDARY Problems related to other legal circumstances LOBITO MORA [facility] Plan of Treatment: Future Appointments [...] Consult Order COMMUNITY CARE-TREATMENT RESISTANT DEPRESSION Cons Director Product Development's Choice [facility] Lab Results: +/- 30 days [...] Jul 18, 2024 10:39 AM Reporting Lab: [facility] [id number] Performing Lab: [facility] [id number] HEMOGLOBIN A1C 5.5 4.0-6.0 Jul 18, 2024 10:46 AM HILARIA NICOLE CALCIUM Specimen Type: PLASMA No comment entered. Ordering Provider: RAGINI BLANK Report Released Date/Time: Jul 18, 2024 10:39 AM Reporting Lab: [facility] [id number] Performing Lab: [facility] [id number] CALCIUM 9.5 mg/dL 8.4-10.2 Jul 18, 2024 10:46 AM [facility] TSH W/REFLEX TO FREE T4 Specimen Type: PLASMA No comment entered. Ordering Provider: RAGINI BLANK Report Released Date/Time: Jul 18, 2024 10:39 AM Reporting Lab: [facility] [id number] Performing Lab: [facility] [id number] TSH 1.88 u[IU]/mL 0.35-4.94 Jul 18, 2024 10:46 AM [facility] CBC Specimen Type: BLOOD No comment entered. Ordering Provider: RAGINI BLANK Report Released Date/Time: Jul 18, 2024 10:39 AM Reporting Lab: [facility] [id number] Performing Lab: [facility] [id number] WBC 6.2 4.0-11.0 RBC 5.01 4.60-6.20 HGB 15.2 g/dL 13.5-17.9 HCT 44.8 41.0-54.0 MCV 89.4 fL 80.0-100.0 MCH 30.3 pg 27.0-33.0 MCHC 33.9 g/dL 32.0-37.5 PLT 234 150-400 MPV 10.1 fL 9.1-13.0 RDW 12.4 11.5-14.5 Jul 18, 2024 10:46 AM [facility] COMPREHENSIVE METABOLIC PANEL+MG Specimen Type: PLASMA No comment entered. Ordering Provider: RAGINI BLANK Report Released Date/Time: Jul 18, 2024 10:39 AM Reporting Lab: [facility] [id number] Performing Lab: [facility] [id number] CREATININE 0.9 mg/dL 0.7-1.2 UREA NITROGEN 11 [...] PM VA-TOBACCO USE EVERY DAY CIGARET [place] [facility] Tobacco Use History This section includes a history of the smoking, or tobacco-related health factors, that were collected on or before the date of the Encounter. The data comes from the [place] facility where the Encounter took place. 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 YES [facility] November 01, 2018 12:58 PM VA-TOBACCO USE MED YES [facility] November 01, 2018 12:58 PM VA-TOBACCO USER EVERY DAY [facility] Aug 05, 2017 02:28 PM CURRENT TOBACCO USER [facility] Jun 10, 2016 02:39 PM INPT TOBACCO COUNSELING [facility] Jun 10, 2016 02:39 PM INPT TOBACCO USER Johana ROSARIO [facility] Jun 10, 2016 08:23 AM CURRENT TOBACCO USER [facility] Advance Directives: All historical and current Section Date Range: From patient's date of to the date document was created. This section includes ALL of a patient's completed or amended [place] Advance and Rescinded Directives. The entries below indicate that a directive exists for the patient, but an actual copy is not included with this document. The data comes from all [place] facilities. Date Advance Directives Provider Source Mar 31, 2023 ADVANCE DIRECTIVE DISCUSSION HILLARYJARADAPOORVA [facility] Nov 30, 2022 ADVANCE DIRECTIVE DISCUSSION ALEXANDER CONNOR [facility] Jun 17, 2016 ADVANCE DIRECTIVE DISCUSSION CAROLIN FIGUEROA SANA Lomeli [facility] Jun 10, 2016 CLINICAL WARNING SANTOSHEILAREJINAIDA BRANCH [facility] October 07, 2015 ADVANCE DIRECTIVE DISCUSSION Lemuel URRUTIA [facility] Encounter Notes: All associated encounter notes This section contains the clinical notes associated to the Encounter. Date/Time Encounter Note(s) Provider Source Jul 27, 2024 02:00 PM MENTAL HEALTH COUN SELING NOTE: LOCAL TITLE: PEER SUPPORT NOTE STANDARD TITLE: MENTAL HEALTH COUNSELING NOTE DATE OF NOTE: JUL 27, 2024@14:00 ENTRY DATE: JUL 28, 2024@11:17:41 AUTHOR: ERICA MORA EXP COSIGNER: URGENCY: STATUS: COMPLETED PEER SUPPORT NOTE Has ADDENDA Group Title: SMART Recovery Peer Support Drop-In Group Modality: Group discussion conferencing via WebEx Medical Office Supervisor: Jones Mora, Financial Project Manager Duration: 60min Number of participants:13 Informed Consent: At start of today's group, Veterans were provided with informed consent, which included (1) 's participation/attendance would be construed as consent for today's telehealth Peer Support drop-in group; (2) discussion of Hoist Cylinder Loader's role; (3) limits of confidentiality and instances of mandated reporting; (4)Hoist Cylinder Loader's documentation standards for group; (5) Hoist Cylinder Loader's engagement in supervision, consultation and support with LIP; (6) behavioral expectations and safety, and (7) discussion of potential privacy risks and data charges associated with utilizing a third-green party application, in this instance [employer], encouraging all Veterans to discuss the same with their respective data service provider. was agreeable to participating in today's group. Group Discussion: The focus of today's SMART Recovery group was primarily Veterans checking in. Veterans shared if they have struggled with any triggers and urges since the last group meeting. The group briefly talked about page 55 of the SMART Recovery book: Relapse prevention. Individual Participation: [place] was in group for 15 minutes, and left before checking in. No SI/HI, plan, or intent was expressed in today's group session. Peer Support Interventions used: (X)Supportive listening (X)Role Modeling (X)Group Facilitation ( )Problem Solving ( )Advocacy ( )Crisis Intervention (X)Recovery Planning (X)Relapse Prevention (X)Education (X)Used own recovery story as a tool (X)Encouraged mutual support among members Diagnosis Per Chart:Alcohol abuse (SCT 85882165) - Alcohol abuse with intoxication, unspecified (ICD-10-CM F10.129) (Primary) Posttraumatic stress disorder (SCT 37598344) - Post-traumatic stress disorder, unspecified (ICD-10-CM F43.10) Depressive disorder (SCT 03675731) - Other recurrent depressive disorders (ICD-10-CM F33.8) Problems Related to other Legal Circumstances (ICD-10-CM Z65.3) Plan: [place] is encouraged to continue attending the SMART Recovery Drop-in Group as needed. Procedure: H0038 (Self-Help / Peer Support) /watson MORA COUNSELING AIDE Signed: 07/28/2024 11:20 Receipt Acknowledged By: 08/11/2024 15:42 /HASEEB Lynne, [facility] CLINICAL MENTAL HEALTH SEWING DEPARTMENT SUPERVISOR 08/11/2024 ADDENDUM STATUS: COMPLETED The primary Licensed Independent Provider (LIP) of this encounter has reviewed and assessed the Peer Merchandising Stock Associate's work with this and concurs with the above. Concurrence is based on the integration of the Peer Merchandising Stock Associate's input which is shared and discussed during recurring supervision/consultation with this residential mortgage underwriter. The primary LIP did not provide direct care during the intervention noted above. /HASEEB Lynne, [facility] CLINICAL MENTAL HEALTH SEWING DEPARTMENT SUPERVISOR Signed: 08/11/2024 15:42 ERICA MORA [facility]
[2024-08-19 10:37] LABS: Slide Review Reflex No
[2024-08-19 10:38] LABS: Anion Gap 23 mEq/L (7-15); Blood Urea Nitrogen* 45 mg/dL (5-24); Carbon Dioxide* 16 mmol/L (20-32); Chloride* 92 mmol/L (96-114); Potassium* 3.8 mmol/L (3.6-5.1); Sodium* 131 mmol/L (135-149)
[2024-08-19 10:39] LABS: Alanine Aminotransferase* 414 U/L (4-50); Albumin* 4.2 g/dL (3.3-5.0); Alkaline Phosphatase* 56 U/L (40-150); Aspartate Amino Transferase* 184 U/L (12-35); Bilirubin Direct* 0.5 mg/dL (0.0-0.5); Bilirubin Total* 1.6 mg/dL (0.1-1.5); Calcium* 7.9 mg/dL (8.4-10.6); Creatinine* 0.9 mg/dL (0.5-1.5); Est. Creatinine Clearance* 124.54; Estimated Glomerular Filt Rate 114 ml/min; Glucose* 182 mg/dL (60-115); Lipase* 204 U/L (23-300); Total Protein* 6.5 g/dL (6.0-8.3)
[2024-08-19 10:40] LABS: Ethanol* 0.12 % (0.01-0.03)
[2024-08-19 10:41] LABS: Lactate Sepsis w/Reflex* 6.3 mmol/L (0.5-1.9)
[2024-08-19] MEDS: THIAMINE 250 MG in 0.9 % SODIUM CHLORIDE 100 ml 100 ML 102.5 MG IVPB (10:44)
[2024-08-19] MEDS: 5 % DEXTROSE/0.9% SOD CHLORIDE 1,000 ML 125 ML IV ×2 (10:46→19:19)
[2024-08-19] MEDS: ONDANSETRON 2 MG/ML inj 4 MG IVP (10:50)
[2024-08-19] MEDS: cefTRIAXone 1 GM in 0.9 % SODIUM CHLORIDE Mini-bag 100 ML IVPB (11:27)
[2024-08-19] MEDS: LORazepam 2 MG/ML inj 1 MG IVP ×3 (11:27→17:25)
[2024-08-19 12:16] LABS: Lactate Sepsis 2 Hour 4.9 mmol/L (0.5-1.9)
[2024-08-19 12:26] LABS: Basophils Absolute Auto 0.02 K/uL (0.00-0.30); Basophils Percent Auto 0.2 % (0.0-3.0); Hematocrit 33.3 % (37.0-53.0); Hemoglobin* 11.8 gm/dL (13.5-17.5); Immature Granulocytes Abs Auto 0.03 K/uL (0.00-0.30); Immature Granulocytes Pct Auto 0.3 %; Lymphocytes Percent Auto 16.6 % (20-44); Mean Corpuscular HGB Conc 35 gm/dL (32-36); Mean Corpuscular Hemoglobin 31 pg (26-34); Mean Corpuscular Volume 86 fL (80-100); Neutrophils Percent Auto 78.9 % (42.0-72.0); Platelet Count* 160 K/uL (140-440); RDW Coefficient of Variation % 12.2 % (11.5-15.5); Red Blood Count 3.86 m/uL (4.30-5.90); White Blood Count* 9.65 K/uL (4.50-11.00)
[2024-08-19 12:31] LABS: Magnesium* 1.8 mg/dL (1.5-2.6)
[2024-08-19 12:32] LABS: Slide Review Reflex No
[2024-08-19 18:06] LABS: HCO3 VBG 28 mmol/L (21-28); Lactate Sepsis w/Reflex* 1.4 mmol/L (0.5-1.9); PCO2 VBG 38 mmHG (40-50); PO2 VBG 56.3 mmHG (25-47); pH VBG 7.477 (7.32-7.43)
[2024-08-19 18:08] LABS: Hemoglobin* 10.7 gm/dL (13.5-17.5)
== END 2024-08-19 20:24 | disposition short-term general hospital (02) ==
PROVIDERS: Emergency Provider Emergency Medicine
DX: K20.90 Esophagitis, unspecified without bleeding (principal); R06.09 Other forms of dyspnea
CPT/HCPCS: 36415; 74174; 80048; 80076; 82077; 82803; 83605; 83690; 83735; 83986; 85018; 85025; 85610; 85730; 86850; 86900; 86901; 93005; 94761; 96365; 96366; 96375; 99285; 99291; J0696; J2060; J2354; J2405; J2470; J3411; J7030; J7042; Q9967

== ENCOUNTER 2024-08-19 20:16 | Outpatient (CLI) | payer OTHER, SELFPAY | END 2024-08-19 20:17 | disposition home or self-care (01) | LOC: AMB 08-21 11:32 | PROVIDERS: Visit Provider Family Medicine | DX: K92.0 Hematemesis (principal) | CPT/HCPCS: A0425; A0434 ==

== ENCOUNTER 2024-11-02 17:08 | Outpatient (CLI) | payer OTHER, SELFPAY | END 2024-11-02 17:09 | disposition home or self-care (01) | LOC: AMB 11-03 10:30 | PROVIDERS: Visit Provider Family Medicine | DX: R55 Syncope and collapse (principal) | CPT/HCPCS: A0425; A0429 ==

== ENCOUNTER 2024-11-02 17:55 | Emergency (ER) | payer OTHER, SELFPAY ==
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
--- OUTSIDE RECORDS SUMMARY | 2024-05-10 19:56 | XMS_ITS | Encounter Summary ---
Author Name [facility] Organization [facility] Address [address] [place] [address] Care Team Providers Care Menagerie Superintendent Name Role Phone RAGINI BLANK Primary Care [...] section includes the information on record at [place] for the Encounter. Date/Time Encounter Type Encounter Description Reason Pro vider Source May 11, 2024 12:56 AM Inpatient Visit ADMIN PAT ACTIVTIES ([place]) SYSTEM,CIS-[facility] IHE Encounter Template Text not used by [place] Plan of Treatment: Future Appointments (+ 6 months) and Future Tests (+/- 45 days) The Plan of Treatment section includes future care activities for the patient from all [place] treatmentfacilities. This section includes future appointments and future orders which are active, pending or scheduled. Future Appointments This section includes appointments that were scheduled to occur 6 months from the date of the Encounter, up to a maximum of 20 appointments. The data comes from all [place] treatment facilities. Appointment Date/Time Appointment Type Appointme nt Facility Name May 15, 2024 11:00 AM AMBULATORY - PSYCHIATRY [facility] May 17, 2024 02:30 PM AMBULATORY - PSYCHIATRY [facility] May 26, 2024 10:00 AM AMBULATORY - PSYCHIATRY [facility] Jun 12, 2024 01:00 PM AMBULATORY - PSYCHIATRY [facility] Jun 15, 2024 03:30 PM AMBULATORY - PSYCHIATRY [facility] Jul 17, 2024 11:00 AM [facility]ONE [facility] Jul 18, 2024 07:01 AM [facility] NONE [facility] Jul 18, 2024 10:30 AM AMBULATORY - MEDICINE [facility] Aug 21, 2024 02:23 PM AMBULATORY - NONE [facility] Active, Pending, and Scheduled Orders This section includes a listing of several types of active, pending, and scheduled orders, including clinic medications orders, diagnostic test orders, procedure orders and consult orders; where the start date of the order is 45 days before the date of the Encounter or 45 days after the date of theEncounter. The data comes from all [place] treatment facilities. Test Date/Time Test Type Test Details Facility Name May 10, 2024 04:38 PM Laboratory - Chemi stry Order DRUG SCREEN PANEL,URINE URINE WC ONCE [facility] May 11, 2024 08:54 AM Laboratory - Chemi stry Order PERIPHERAL SMEAR PATHOLOGIST REVIEW BLOOD WC ONCE [facility] Lab Results: +/- 30 days of the encounter This section includes the Chemistry and Hematology Lab Results on record with [place] for the patient. Radiology Reports and Pathology Reports are provided separately, in subsequent sections. Lab Results This section contains the Chemistry/Hematology Results that were resulted 30 days before or 30 daysafter the date of the Encounter. Date/Time Source Result Type Result - Unit Interpretation Reference Range Specimen Type Comment May 11, 2024 07:53 AM [facility] CBC BLOOD Specimen Type: BLOOD No comment entered. Ordering Provider: REGAN CANSECO Report Released Date/Time: May 10, 2024 07:15 PM Reporting Lab: [facility] [phone] Performing Lab: [facility] [phone] WBC 5.1 4.0-11.0 RBC 4.19 L 4.60-6.20 HGB 12.5 g/dL L 13.5-17.9 HCT 36.6 L 41.0-54.0 MCV 87.4 fL 80.0-100.0 MCH 29.8 pg 27.0-33.0 MCHC 34.2 g/dL 32.0-37.5 PLT 74 L 150-400 MPV 10.6 fL 9.1-13.0 RDW 13.3 11.5-14.5 IPF 5.6 0-10 May 11, 2024 07:53 AM [facility] ALBUMIN PLASMA Specimen Type : PLASMA No comment entered. Ordering Provider: MARGO CANSECO Report Released Date/Time: May 10, 2024 07:15 PM Reporting Lab: [facility] [phone] Performing Lab: [facility] [address] ALBUMIN 3.7 g/dL 3.5-5.0 May 11, 2024 07:53 AM [facility] PHOSPHORUS PLASMA Specimen Type : PLASMA No comment entered. Ordering Provider: MARGO CANSECO Report Released Date/Time: May 10, 2024 08:52 PM Reporting Lab: [facility] [phone] Performing Lab: [facility] [address] PHOSPHORUS 2.6 mg/dL 2.3-4.3 May 11, 2024 07:53 AM [facility] COMPREHENSIVE METABOLIC PANEL+MG PLASMA Specimen Type: PLASMA No comment entered. Ordering Provider: MARGO CANSECO Report Released Date/Time: May 10, 2024 07:15 PM Reporting Lab: [facility] [phone] Performing Lab: [facility] [phone] CREATININE 0.8 mg/dL 0.7-1.2 UREA NITROGEN 11 mg/dL 8-26 GLUCOSE 123 mg/dL H 70-100 SODIUM 135 mmol/L L 136-145 POTASSIUM 3.4 mmol/L L 3.5-5.1 CHLORIDE 97 mmol/L L 98-107 CO2 29 mmol/L 22-29 CALCIUM 8.3 mg/dL L 8.4-10.2 PROTEIN,TOTAL 6.0 g/dL L 6.4-8.3 ALBUMIN 3.7 g/dL 3.5-5.0 BILIRUBIN, TOTAL 1.3 mg/dL H 0.2-1.2 MAGNESIUM 1.4 mg/dL L 1.6-2.6 ANION GAP 9 mmol/L 5-15 ALKALINE PHOSPHATASE 55 U/L 40-150 ALT/SGPT 31 U/L <44 AST/SGOT 53 U/L H 11-34 .CREAT EGFR(CKD-EPI) >90 >60 DIR. BILIRUBIN 0.5 mg/dL <0.5 May 10, 2024 09:08 PM [facility] DRUG SCREEN PANEL,URINE URINE Spec imen Type: URINE Comment: Presumptive Positive by screen, results not confirmed. Glucose present in urine. No yeast detected. Ordering Provider: MARGO CANSECO Report Released Date/Time: May 10, 2024 07:15 PM Reporting Lab: [facility] [phone] Performing Lab: [facility] [phone] BARBITURATES Negative Negative AMPHETAMINES Negative Negative COCAINE Negative Negative BENZODIAZEPINES Negative Negative CANNABINOIDS POSITIVE H Negative METHADONE Negative Negative OPIATES Negative Negative PHENCYCLIDINE Negative Negative ETHANOL,URINE POSITIVE H Negative DRUG SCREEN CREAT 298.7 mg/dL >20.0 OXYCODONE Negative Negative BUPRENORPHINE Negative Negative TRAMADOL Negative Negative FENTANYL Negative Negative DRUG SCREEN GLUCOSE POSITIVE Negative May 10, 2024 04:50 PM [facility] ETHANOL PLASMA Specimen Type: PLASMA No comment entered. Ordering Provider: PAXTON DAY Report Released Date/Time: May 10, 2024 04:38 PM Reporting Lab: [facility] [phone] Performing Lab: [facility] [address] ETHANOL 286 mg/dL NEGATIVE May 10, 2024 04:50 PM [facility] LIPASE PLASMA Specimen Type: PLASMA No comment entered. Ordering Provider: PAXTON DAY Report Released Date/Time: May 10, 2024 04:38 PM Reporting Lab: [facility] [phone] Performing Lab: [facility] [address] LIPASE 49 U/L <60 May 10, 2024 04:50 PM [facility] COMPREHENSIVE METABOLIC PANEL+MG PLASMA Specimen Type: PLASMA No comment entered. Ordering Provider: PAXTON DAY Report Released Date/Time: May 10, 2024 04:38 PM Reporting Lab: [facility] [address] Performing Lab: [facility] [address] CREATININE 0.8 mg/dL 0.7-1.2 UREA NITROGEN 14 mg/dL 8-26 GLUCOSE 135 mg/dL H 70-100 SODIUM 137 mmol/L 136-145 POTASSIUM 3.7 mmol/L 3.5-5.1 CHLORIDE 96 mmol/L L 98-107 CO2 26 mmol/L 22-29 CALCIUM 8.7 mg/dL 8.4-10.2 PROTEIN,TOTAL 7.3 g/dL 6.4-8.3 ALBUMIN 4.4 g/dL 3.5-5.0 BILIRUBIN, TOTAL 0.7 mg/dL 0.2-1.2 MAGNESIUM 2.0 mg/dL 1.6-2.6 ANION GAP 15 mmol/L 5-15 ALKALINE PHOSPHATASE 69 U/L 40-150 ALT/SGPT 37 U/L <44 AST/SGOT 61 U/L H 11-34 .CREAT EGFR(CKD-EPI) >90 >60 May 10, 2024 04:50 PM [facility] PHOSPHORUS PLASMA Specimen Type : PLASMA No comment entered. Ordering Provider: MARGO CANSECO Report Released Date/Time: May 10, 2024 07:15 PM Reporting Lab: [facility] [phone] Performing Lab: [facility] [address] PHOSPHORUS 1.8 mg/dL L 2.3-4.3 May 10, 2024 04:50 PM [facility] SALICYLATE SERUM Specimen Type : SERUM No comment entered. Ordering Provider: MARGO CANSECO Report Released Date/Time: May 10, 2024 07:15 PM Reporting Lab: [facility] [address] Performing Lab: [facility] [address] SALICYLATE <5.0 mg/dL L 15.0-30.0 May 10, 2024 04:50 PM [facility] ACETAMINOPHEN PLASMA Specimen Type : PLASMA No comment entered. Ordering Provider: MARGO CANSECO Report Released Date/Time: May 10, 2024 07:15 PM Reporting Lab: [facility] [address] Performing Lab: [facility] [address] ACETAMINOPHEN <3.0 ug/mL L 10.0-30.0 May 10, 2024 04:50 PM [facility] CBC & DIFF BLOOD Specimen Type: BLOOD Comment: Automated Differential Performed Ordering Provider: PAXTON DAY Report Released Date/Time: May 10, 2024 04:38 PM Reporting Lab: [facility] [address] Performing Lab: [facility] [address] WBC 5.5 4.0-11.0 RBC 5.10 4.60-6.20 HGB 15.1 g/dL 13.5-17.9 HCT 44.2 41.0-54.0 MCV 86.7 fL 80.0-100.0 MCH 29.6 pg 27.0-33.0 MCHC 34.2 g/dL 32.0-37.5 PLT 118 L 150-400 MPV 9.8 fL 9.1-13.0 NEUT 58.1 40.0-80.0 LYMPHS 35.0 15.0-45.0 MONO 6.0 2.0-12.0 EOSINO 0.2 0.0-6.0 BASO 0.5 0.0-2.0 RDW 13.2 11.5-14.5 ABS LYMPH 1.9 1.0-4.0 ABS MONO 0.3 0.1-1.0 ABS NEUT 3.2 2.0-7.7 ABS EOS 0.0 0.0-0.5 ABS BASO 0.0 0.0-0.2 IG(META,MYELO,PRO) 0.2 ABS IMMATURE GRAN 0.0 0.0-0.1 IPF 4.5 0-10 May 10, 2024 04:30 PM [facility] EXTRA GOLD GEL TUBE SERUM Specimen Type: SERUM No comment entered. Ordering Provider: PAXTON DAY Report Released Date/Time: May 10, 2024 05:15 PM Reporting Lab: [facility] [address] Performing Lab: [facility] [address] EXTRA GOLD GEL TUBE RECEIVED May 05, 2024 03:27 PM [facility] ACT PART THROMBO TIME PLASMA Specim en Type: PLASMA No comment entered. Ordering Provider: GIL HARPER Report Released Date/Time: May 05, 2024 03:27 PM Reporting Lab: [facility] [address] Performing Lab: [facility] [address] APTT 31.1 s 25.1-36.5 May 05, 2024 03:27 PM [facility] ETHANOL PLASMA Specimen Type : PLASMA No comment entered. Ordering Provider: GIL HARPER Report Released Date/Time: May 05, 2024 03:27 PM Reporting Lab: [facility] [address] Performing Lab: [facility] [address] ETHANOL 443 mg/dL NEGATIVE May 05, 2024 03:27 PM [facility] PROTHROMBIN TIME/INR PLASMA Specime n Type: PLASMA No comment entered. Ordering Provider: GIL HARPER Report Released Date/Time: May 05, 2024 03:27 PM Reporting Lab: [facility] [address] Performing Lab: [facility] [address] .INR 0.9 0.8-1.1 .PT 10.6 s 9.4-12.5 May 05, 2024 03:27 PM [facility] EXTRA GOLD GEL TUBE SERUM Specimen Type: SERUM No comment entered. Ordering Provider: GIL HARPER Report Released Date/Time: May 05, 2024 03:38 PM Reporting Lab: [facility] [address] Performing Lab: [facility] [address] EXTRA GOLD GEL TUBE RECEIVED May 05, 2024 03:27 PM [facility] COMPREHENSIVE METABOLIC PANEL+MG PLASMA Specimen Type: PLASMA No comment entered. Ordering Provider: GIL HARPER Report Released Date/Time: May 05, 2024 03:27 PM Reporting Lab: [facility] [address] Performing Lab: [facility] [address] CREATININE 0.7 mg/dL 0.7-1.2 UREA NITROGEN 15 mg/dL 8-26 GLUCOSE 138 mg/dL H 70-100 SODIUM 142 mmol/L 136-145 POTASSIUM 3.7 mmol/L 3.5-5.1 CHLORIDE 105 mmol/L 98-107 CO2 23 mmol/L 22-29 CALCIUM 9.1 mg/dL 8.4-10.2 PROTEIN,TOTAL 8.0 g/dL 6.4-8.3 ALBUMIN 4.5 g/dL 3.5-5.0 BILIRUBIN, TOTAL 0.7 mg/dL 0.2-1.2 MAGNESIUM 2.2 mg/dL 1.6-2.6 ANION GAP 14 mmol/L 5-15 ALKALINE PHOSPHATASE 75 U/L 40-150 ALT/SGPT 57 U/L H <44 AST/SGOT 92 U/L H 11-34 .CREAT EGFR(CKD-EPI) >90 >60 May 05, 2024 03:27 PM [facility] CBC & DIFF BLOOD Specimen Type : BLOOD Comment: Automated Differential Performed Ordering Provider: GIL HARPER Report Released Date/Time: May 05, 2024 03:27 PM Reporting Lab: [facility] [address] Performing Lab: [facility] [address] WBC 8.9 4.0-11.0 RBC 5.15 4.60-6.20 HGB 16.0 g/dL 13.5-17.9 HCT 44.4 41.0-54.0 MCV 86.2 fL 80.0-100.0 MCH 31.1 pg 27.0-33.0 MCHC 36.0 g/dL 32.0-37.5 PLT 143 L 150-400 MPV 9.7 fL 9.1-13.0 NEUT 63.7 40.0-80.0 LYMPHS 30.9 15.0-45.0 MONO 4.4 2.0-12.0 EOSINO 0.2 0.0-6.0 BASO 0.6 0.0-2.0 RDW 13.0 11.5-14.5 ABS LYMPH 2.7 1.0-4.0 ABS MONO 0.4 0.1-1.0 ABS NEUT 5.7 2.0-7.7 ABS EOS 0.0 0.0-0.5 ABS BASO 0.1 0.0-0.2 IG(META,MYELO,PRO) 0.2 ABS IMMATURE GRAN 0.0 0.0-0.1 Vital Signs: All taken on the encounter date This section contains inpatient and outpatient Vital Signs collected on the date of the Encounter. Date/Time Temperature Pulse Blood Pressure Respiratory Rate SP02 Pain Height Weight Body Mass Index Source May 11, 2024 04:32 PM 98.6 95 127/77 18 98 0 [facility] May 11, 2024 01:08 PM 97.2 95 129/81 18 98 [facility] May 11, 2024 10:49 AM 97.4 93 116/70 16 97 [facility] May 11, 2024 08:04 AM 98.4 93 135/74 18 98 0 [facility] May 11, 2024 05:58 AM 98.0 96 132/71 16 96 [facility] Social History: Smoking Status (Most current) and Tobacco Use (All prior to encounter date) This section includes the most current, and the historical, smoking and tobacco- related health factors from the [place] facility where the Encounter took place. Current Smoking Status This section includes the most current smoking, or tobacco-related health factor, from the [place] facility where the Encounter took place. Date/Time Current Smoking Status Comment [place] ity November 01, 2018 12:58 PM VA-TOBACCO USE MED YES [facility] Tobacco Use History This section includes a history of the smoking, or tobacco-related health factors, that were collected on or before the date of the Encounter. The data comes from the [place] facility where the Encounter took place. 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 This section includes ALL of a patient's completed or amended [place] Advance and Rescinded Directives. The entries below indicate that a directive exists for the patient, but an actual copy is not included with this document. The data comes from all [place] facilities. Date Advance Directives Provider Source Mar 31, 2023 ADVANCE DIRECTIVE DISCUSSION APOORVA KHANNA [facility] Nov 30, 2022 ADVANCE DIRECTIVE DISCUSSION ALEXANDER CONNOR [facility] Jun 17, 2016 ADVANCE DIRECTIVE DISCUSSION CAROLINACAROLIN SANA Yani [facility] Jun 10, 2016 CLINICAL WARNING NAIDA BRADSHAW [facility] October 07, 2015 ADVANCE DIRECTIVE DISCUSSION Lemuel URRUTIA [facility] Radiology Reports: +/- 30 days of the encounter Radiology Reports For cases when an order for radiology services may have been completed prior to the date of the Encounter, the report list includes the Radiology Reports that were completed up to 30 days before dateof the Encounter. For cases when an order for radiology services may have been completed after the date of the Encounter, the report list also includes the Radiology Reports that were completed up to30 days after date of the Encounter. The data comes from all [place] treatment facilities. Date/Time Radiology Report Provider Source May 05, 2024 03:[address] HEAD (P): SHAQUILLE ALARCON [id number] [id number] M Exm Date: MAY 05, 2024@15:44 Req Phys: GIL HARPER Loc: [facility] (Re Img Loc: CT IMAGING Service: [place] [address] (Case [id number] COMPLETE) CT HEAD/BRAIN W/O CONTRAST (CT Detailed) CPT:96344 Reason for Study: fall headache Clinical History: LAST 3: Collection DT Specimen Test Name Result Units Ref Range 03/07/2024 05:30 PLASMA CREATININE 0.8 mg/dL 0.7 - 1.2 03/05/2024 22:05 PLASMA CREATININE 0.8 mg/dL 0.7 - 1.2 07/25/2023 10:05 PLASMA CREATININE 0.9 mg/dL 0.7 - 1.2 03/07/2024 05:30 PLASMA .CREAT EGFR(CKD-E >90 Ref: >=60 03/05/2024 22:05 PLASMA .CREAT EGFR(CKD-E >90 Ref: >=60 07/25/2023 10:05 PLASMA .CREAT EGFR(CKD-E >90 Ref: >=60 Allergies: ([place] only) Patient has answered NKA Defer to radiologist for final CT protocol. My pager number on record is: . The pager number above is NOT correct and I have entered my correct pager number below: [phone] Trainees only: Enter your staff provider's info here: Per Joint Commission Standards, by signing this diagnostic imaging request the ordering provider confirms they have considered patients age and recent imaging history. Report Status: Verified Date Reported: MAY 05, 2024 Date Verified: MAY 05, 2024 [employer] Feeder E-Sig:/ES/BILL FLETCHER MD Report: EXAM: CT HEAD/BRAIN W/O CONTRAST HISTORY: fall headache Reason for Study: fall headache LAST 3: Collection DT Specimen Test Name Result Units Ref Range 03/07/2024 05:30 PLASMA CREATININE 0.8 mg/dL 0.7 - 1.2 03/05/2024 22:05 PLASMA CREATININE 0.8 mg/dL 0.7 - 1.2 07/25/2023 10:05 PLASMA CREATININE 0.9 mg/dL 0.7 - 1.2 03/07/2024 05:30 PLASMA .CREAT EGFR( COMPARISON: None TECHNIQUE: Routine axial noncontrast acquisition. Routine sagittal and coronal reconstructions. Dose: Total DLP 929. FINDINGS: Brain parenchyma is within normal limits. No evidence of intracranial hemorrhage, intracranial mass effect or hydrocephalus. Skull is within normal limits. Paranasal sinuses are within normal limits. Impression: No evidence of an acute or chronic abnormality. Primary Interpreting Staff: BILL FLETCHER MD, RADIOLOGIST (Barking Machine Feeder) /BILL HAIDER [facility] Encounter Notes: All associated encounter notes This section contains the clinical notes associated to the Encounter. Date/Time Encounter Note(s) Provider Source May 11, 2024 12:56 AM CRITICAL CARE UNIT NOTE: [facility] TITLE: CRITICAL CARE UNIT NOTE DATE OF NOTE: MAY 11, 2024@00:56 ENTRY DATE: MAY 11, 2024@14:38:13 AUTHOR: NATHAN MULLER EXP COSIGNER: URGENCY: STATUS: COMPLETED This is a place acosta only. Please see [employer] to view document. /es/ LOR-MINESH SYSTEM ICU DOCUMENT IMPORT Signed: 05/11/2024 14:38 LOR MULLER-MINESH [facility] May 11, 2024 12:56 AM CRITICAL CARE UNIT NOTE: LOCAL TITLE: [facility] RESPIRATORY THERAPY FLOWSHEET STANDARD TITLE: CRITICAL CARE UNIT NOTE DATE OF NOTE: MAY 11, 2024@00:56 ENTRY DATE: MAY 11, 2024@15:11:50 AUTHOR: NATHAN MULLER EXP COSIGNER: URGENCY: STATUS: COMPLETED This is a place acosta only. Please see [facility] to view document. /es/ LOR-MINESH SYSTEM ICU DOCUMENT IMPORT Signed: 05/11/2024 15:11 NATHAN MULLER [facility]
--- OUTSIDE RECORDS SUMMARY | 2024-05-11 03:48 | XMS_ITS | Encounter Summary ---
Author Name [facility] Organization [facility] Address [address] [place] [address] Care Team Providers Care Assistant Farm Operations Manager Name Role Phone RAGINI BLANK Primary Care [...] section includes the information on record at [place] for the Encounter. Date/Time Encounter Type Encounter Description Reason Pro vider Source May 11, 2024 08:48 AM Inpatient Visit CLINICAL PHARMACY [facility] Encounter Template Text not used by [place] Plan of Treatment: Future Appointments (+ 6 months) and Future Tests (+/- 45 days) The Plan of Treatment section includes future care activities for the patient from all [place] treatmentfacilities. This section includes future appointments and future orders which are active, pending or scheduled. Future Appointments This section includes appointments that were scheduled to occur 6 months from the date of the Encounter, up to a maximum of 20 appointments. The data comes from all [place] treatment facilities. Appointment Date/Time Appointment Type Appointme nt Facility Name May 15, 2024 11:00 AM AMB[facility]ATORY - [facility]RY [facility] May 17, 2024 02:30 PM AMBULATORY - [facility]ATRY [facility] May 26, 2024 10:00 AM AMBULATORY - PS[facility]ATRY [facility] Jun 12, 2024 01:00 PM AMB[facility]ATORY - PS[facility]ATRY [facility] Jun 15, 2024 03:30 PM [facility] Jul 17, 2024 11:00 AM AMBULATORY - NONE [facility] Jul 18, 2024 07:01 AM AMBULATORY - NONE [facility] Jul 18, 2024 10:30 AM [facility]ATORY - MEDICINE [facility] Aug 21, 2024 02:23 PM AMBULATORY - NONE [facility] Active, Pending, and Scheduled Orders This section includes a listing of several types of active, pending, and scheduled orders, including clinic medications orders, diagnostic test orders, procedure orders and consult orders; where the start date of the order is 45 days before the date of the Encounter or 45 days after the date of theEncounter. The data comes from all [facility] facilities. Test Date/Time Test Type Test Details Facility Name May 10, 2024 04:38 PM Laboratory - Chemi stry Order DRUG SCREEN PANEL,URINE URINE WC ONCE [facility] May 11, 2024 08:54 AM Laboratory - Chemi stry Order PERIPHERAL SMEAR PATHOLOGIST REVIEW BLOOD WC ONCE [facility] Lab Results: +/- 30 days of the encounter This section includes the Chemistry and Hematology Lab Results on record with [place] for the patient. Radiology Reports and Pathology Reports are provided separately, in subsequent sections. Lab Results This section contains the Chemistry/Hematology Results that were resulted 30 days before or 30 daysafter the date of the Encounter. Date/Time Source Result Type Result - Unit Interpretation Reference Range Specimen Type Comment May 11, 2024 07:53 AM [facility] CBC BLOOD Specimen Type: BLOOD No comment entered. Ordering Provider: REGAN CANSECO Report Released Date/Time: May 10, 2024 07:15 PM Reporting Lab: [facility] [phone] Performing Lab: [facility] [phone] WBC 5.1 4.0-11.0 RBC 4.19 L 4.60-6.20 HGB 12.5 g/dL L 13.5-17.9 HCT 36.6 L 41.0-54.0 MCV 87.4 fL 80.0-100.0 MCH 29.8 pg 27.0-33.0 MCHC 34.2 g/dL 32.0-37.5 PLT 74 L 150-400 MPV 10.6 fL 9.1-13.0 RDW 13.3 11.5-14.5 IPF 5.6 0-10 May 11, 2024 07:53 AM [facility] ALBUMIN PLASMA Specimen Type : PLASMA No comment entered. Ordering Provider: MARGO CANSECO Report Released Date/Time: May 10, 2024 07:15 PM Reporting Lab: [facility] [phone] Performing Lab: [facility] [phone] ALBUMIN 3.7 g/dL 3.5-5.0 May 11, 2024 07:53 AM [facility] PHOSPHORUS PLASMA Specimen Type : PLASMA No comment entered. Ordering Provider: MARGO CANSCEO Report Released Date/Time: May 10, 2024 08:52 PM Reporting Lab: [facility] [phone] Performing Lab: [facility] [phone] PHOSPHORUS 2.6 mg/dL 2.3-4.3 May 11, 2024 07:53 AM [facility] COMPREHENSIVE METABOLIC PANEL+MG PLASMA Specimen Type: PLASMA No comment entered. Ordering Provider: MARGO CANSECO Report Released Date/Time: May 10, 2024 07:15 PM Reporting Lab: [facility] [phone] Performing Lab: [facility] [phone] CREATININE 0.8 mg/dL 0.7-1.2 UREA NITROGEN 11 [...] mg/dL <0.5 May 10, 2024 09:08 PM [facility] DRUG SCREEN PANEL,URINE URINE Spec imen Type: URINE Comment: Presumptive Positive by screen, results not confirmed. Glucose present in urine. No yeast detected. Ordering Provider: MARGO CANSECO Report Released Date/Time: May 10, 2024 07:15 PM Reporting Lab: [facility] [phone] Performing Lab: [facility] [phone] BARBITURATES Negative Negative AMPHETAMINES Negative Negative COCAINE Negative Negative BENZODIAZEPINES Negative Negative CANNABINOIDS POSITIVE H Negative METHADONE Negative Negative OPIATES Negative Negative PHENCYCLIDINE Negative Negative ETHANOL,URINE POSITIVE H Negative DRUG SCREEN CREAT 298.7 mg/dL >20.0 OXYCODONE Negative Negative BUPRENORPHINE Negative Negative TRAMADOL Negative Negative FENTANYL Negative Negative DRUG SCREEN GLUCOSE POSITIVE Negative May 10, 2024 04:50 PM [facility] ETHANOL PLASMA Specimen Type: PLASMA No comment entered. Ordering Provider: PAXTON DAY Report Released Date/Time: May 10, 2024 04:38 PM Reporting Lab: [facility] [phone] Performing Lab: [facility] [address] ETHANOL 286 mg/dL NEGATIVE May 10, 2024 04:50 PM [facility] LIPASE PLASMA Specimen Type: PLASMA No comment entered. Ordering Provider: PAXTON DAY Report Released Date/Time: May 10, 2024 04:38 PM Reporting Lab: [facility] [phone] Performing Lab: [facility] [address] LIPASE 49 U/L <60 May 10, 2024 04:50 PM [facility] PHOSPHORUS PLASMA Specimen Type : PLASMA No comment entered. Ordering Provider: MARGO CANSECO Report Released Date/Time: May 10, 2024 07:15 PM Reporting Lab: [facility] [phone] Performing Lab: [facility] [phone] PHOSPHORUS 1.8 mg/dL L 2.3-4.3 May 10, 2024 04:50 PM [facility] ACETAMINOPHEN PLASMA Specimen Type : PLASMA No comment entered. Ordering Provider: MARGO CANSECO Report Released Date/Time: May 10, 2024 07:15 PM Reporting Lab: [facility] [phone] Performing Lab: [facility] [phone] ACETAMINOPHEN <3.0 ug/mL L 10.0-30.0 May 10, 2024 04:50 PM [facility] COMPREHENSIVE METABOLIC PANEL+MG PLASMA Specimen Type: PLASMA No comment entered. Ordering Provider: PAXTON DAY Report Released Date/Time: May 10, 2024 04:38 PM Reporting Lab: [facility] [phone] Performing Lab: [facility] [phone] CREATININE 0.8 mg/dL 0.7-1.2 UREA NITROGEN 14 [...] >90 >60 May 10, 2024 04:50 PM [facility] SALICYLATE SERUM Specimen Type : SERUM No comment entered. Ordering Provider: MARGO CANSECO Report Released Date/Time: May 10, 2024 07:15 PM Reporting Lab: [facility] [phone] Performing Lab: [facility] [phone] SALICYLATE <5.0 mg/dL L 15.0-30.0 May 10, 2024 04:50 PM [facility] CBC & DIFF BLOOD Specimen Type: BLOOD Comment: Automated Differential Performed Ordering Provider: PAXTON DAY Report Released Date/Time: May 10, 2024 04:38 PM Reporting Lab: [facility] [phone] Performing Lab: [facility] [address] WBC 5.5 4.0-11.0 RBC 5.10 4.60-6.20 HGB [...] 4.5 0-10 May 10, 2024 04:30 PM [facility] EXTRA GOLD GEL TUBE SERUM Specimen Type: SERUM No comment entered. Ordering Provider: PAXTON DAY Report Released Date/Time: May 10, 2024 05:15 PM Reporting Lab: [facility] [phone] Performing Lab: [facility] [address] EXTRA GOLD GEL TUBE RECEIVED May 05, 2024 03:27 PM [facility] ACT PART THROMBO TIME PLASMA Specim en Type: PLASMA No comment entered. Ordering Provider: GIL HARPER Report Released Date/Time: May 05, 2024 03:27 PM Reporting Lab: [facility] [phone] Performing Lab: [facility] [address] APTT 31.1 s 25.1-36.5 May 05, 2024 03:27 PM [facility] ETHANOL PLASMA Specimen Type : PLASMA No comment entered. Ordering Provider: GIL HARPER Report Released Date/Time: May 05, 2024 03:27 PM Reporting Lab: [facility] [phone] Performing Lab: [facility] [address] ETHANOL 443 mg/dL NEGATIVE May 05, 2024 03:27 PM [facility] PROTHROMBIN TIME/INR PLASMA Specime n Type: PLASMA No comment entered. Ordering Provider: GIL HARPER Report Released Date/Time: May 05, 2024 03:27 PM Reporting Lab: [facility] [address] Performing Lab: [facility] [address] .INR 0.9 0.8-1.1 .PT 10.6 s 9.4-12.5 May 05, 2024 03:27 PM [facility] EXTRA GOLD GEL TUBE SERUM Specimen Type: SERUM No comment entered. Ordering Provider: GIL HARPER Report Released Date/Time: May 05, 2024 03:38 PM Reporting Lab: [facility] [address] Performing Lab: [facility] [address] EXTRA GOLD GEL TUBE RECEIVED May 05, 2024 03:27 PM [facility] COMPREHENSIVE METABOLIC PANEL+MG PLASMA Specimen Type: PLASMA No comment entered. Ordering Provider: GIL HARPER Report Released Date/Time: May 05, 2024 03:27 PM Reporting Lab: [facility] [address] Performing Lab: [facility] [address] CREATININE 0.7 mg/dL 0.7-1.2 UREA NITROGEN 15 [...] >90 >60 May 05, 2024 03:27 PM [facility] CBC & DIFF BLOOD Specimen Type : BLOOD Comment: Automated Differential Performed Ordering Provider: GIL HARPER Report Released Date/Time: May 05, 2024 03:27 PM Reporting Lab: [facility] [address] Performing Lab: [facility] [address] WBC 8.9 4.0-11.0 RBC 5.15 4.60-6.20 HGB [...] PM 98.6 95 127/77 18 98 0 [facility] May 11, 2024 01:08 PM 97.2 95 129/81 18 98 [facility] May 11, 2024 10:49 AM 97.4 93 116/70 16 97 [facility] May 11, 2024 08:04 AM 98.4 93 135/74 18 98 0 [facility] May 11, 2024 05:58 AM 98.0 96 132/71 16 96 [facility] Social History: Smoking Status (Most current) and Tobacco Use (All prior to encounter date) This section includes the most current, and the historical, smoking and tobacco- related health factors from the [place] facility where the Encounter took place. Current Smoking Status This section includes the most current smoking, or tobacco-related health factor, from the [place] facility where the Encounter took place. Date/Time Current Smoking Status Comment Facil ity November 01, 2018 12:58 PM VA-TOBACCO USE MED YES [facility] Tobacco Use History This section includes a history of the smoking, or tobacco-related health factors, that were collected on or before the date of the Encounter. The data comes from the [place] facility where the Encounter took place. 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 [facility] November 01, 2018 12:58 PM VA-TOBACCO USE MED YES [facility] November 01, 2018 12:58 PM VA-TOBACCO USER EVERY DAY [facility] Aug 05, 2017 02:28 PM CURRENT TOBACCO USER [facility] Jun 10, 2016 02:39 PM INPT TOBACCO COUNSELING [facility] Jun 10, 2016 02:39 PM INPT TOBACCO USER [place] [facility] Jun 10, 2016 08:23 AM CURRENT TOBACCO USER [facility] Advance Directives: All historical and current Section Date Range: From patient's date of to the date document was created. This section includes ALL of a patient's completed or amended [place] Advance and Rescinded Directives. The entries below indicate that a directive exists for the patient, but an actual copy is not included with this document. The data comes from all [facility]. Date Advance Directives Provider Source Mar 31, 2023 ADVANCE DIRECTIVE DISCUSSION APOORVA KHANNA [facility] Nov 30, 2022 ADVANCE DIRECTIVE DISCUSSION ALEXANDER CONNOR [facility] Jun 17, 2016 ADVANCE DIRECTIVE DISCUSSION CAROLINACAROLIN SANA Lomeli [facility] Jun 10, 2016 CLINICAL WARNING NAIDA BRADSHAW [facility] October 07, 2015 ADVANCE DIRECTIVE DISCUSSION Lemuel [facility] Radiology Reports: +/- 30 days [...] the Encounter. The data comes from all [place] treatment facilities. Date/Time Radiology Report Provider Source May 05, 2024 03:[address] HEAD (P): SHAQUILLE ALARCON [id number] -[id number] M Exm Date: MAY 05, 2024@15:44 Req Phys: GIL HARPER Loc: [facility] EMERGENCY DEPT WALK-IN (Re Img Loc: CT IMAGING Service: [place] [address] (Case [id number] COMPLETE) CT HEAD/BRAIN W/O CONTRAST (CT Detailed) CPT:19201 Reason for Study: fall headache Clinical History: [...] PLASMA .CREAT EGFR(CKD-E >90 Ref: >=60 Allergies: ([place] only) Patient has answered NKA Defer to radiologist for final CT protocol. My pager number on record is: . The pager number above is NOT correct and I have entered my correct pager number below: [phone] Trainees only: Enter your staff provider's info here: Per Joint Commission Standards, by signing this diagnostic imaging request the ordering provider confirms they have considered patients age and recent imaging history. Report Status: Verified Date Reported: MAY 05, 2024 Date Verified: MAY 05, 2024 [employer] Mason E-Sig:/ES/BILL FLETCHER MD Report: EXAM: CT HEAD/BRAIN [...] Primary Interpreting Staff: BILL FLETCHER MD, RADIOLOGIST (Cinder [employer] Mason) /BILL HAIDER [facility] Encounter Notes: All associated encounter notes This section contains the clinical notes associated to the Encounter. Date/Time Encounter Note(s) Provider Source May 11, 2024 08:48 AM PHARMACY MEDICATIO N MGT NOTE: LOCAL TITLE: DRUG RECONCILIATION ON ADMIT STANDARD TITLE: PHARMACY MEDICATION MGT NOTE DATE OF NOTE: MAY 11, 2024@08:48 ENTRY DATE: MAY 11, 2024@08:48:32 AUTHOR: RHETT BERGERON COSIGNER: URGENCY: STATUS: COMPLETED PHARMACY MEDICATION HISTORY NOTE ===== Medication & allergy history was compiled by pharmacy to assist providers ordering inpatient medications. Essential med list includes active local & remote VA rxs, non-VA meds, recently rxs within last 180 days, recently discontinued rxs within last 90 days, clinic med orders, pending med orders, & inpatient med orders. Current active & pending inpatient med orders will be reviewed to complete medication reconciliation. With the exception of allergies, if a category is not listed below, there were no relevant meds for the patient. See [facility] Emergency Department documentation for medications given during emergency department visit. Seasonal Influenza Immunization: None; stated they were not interested INTERVIEW Patient has been INTERVIEWED by pharmacy. [place] states they self-manage their medications, and obtain all prescription medications from the [place] pharmacy. Patient reports last scheduled medication(s) were taken prior to admit other: a couple of days ago; believes it was either Wednesday or Wednesday (05/08-) Tobacco use within the last 30 days: Yes Type/Amount: cigarettes; a couple per day Interested in inpatient NRT? No Interested in outpatient NRT? No Interested in talking with pharmacist after discharge? No Allergies: FACILITY ALLERGY/ADR -------- [facility] No Known Allergies [facility] NO KNOWN ALLERGIES [facility] NO KNOWN ALLERGIES validated no known allergies/adverse reactions outpatient medication list Drug Last Refills Qty Filled Remaining ---- --- ------ --------- AMPHETAMINE/DEXTROAMPHET 30MG SA CAP 56 05/09/2024 (0) ONE BID FOR ATTENTION takes around 8a and 12p FOLIC ACID 1MG TAB 30 04/03/2024 (0) ONE QDAY FOR FOLIC ACID SUPPLEMENT (am) MULTIVITAMIN/MINERALS SENIOR FORMULA T 60 12/20/2023 (2) 1 QDAY FOR SUPPLEMENT (am) THIAMINE 100MG TAB 100 03/07/2024 (0) ONE QDAY FOR SUPPLEMENT (am) TRAZODONE HCL 100MG TAB 90 03/13/2024 (1) ONE QHS PRN FOR SLEEP takes infrequently : NOT taking DIAZEPAM 5MG TAB 4 03/07/2024 (0) ONE BID FOR ALCOHOL WITHDRAWAL/ANXIETY : 04/06/2024 ran out of supply ESCITALOPRAM OXALATE 10MG TAB 90 05/11/2023 (2) ONE QDAY FOR DEPRESSION : 03/01/2024 not taking MELATONIN 3MG CAP/TAB 60 05/18/2023 (0) 1 QHS FOR SLEEP : 01/29/2024 not taking The following are Non-VA medications KETAMINE INJ,SOLN Statement/Explanation/Comme nt: since 07/2023 through [facility], weekly [facility] clinic location stated he last received a ketamine IV infusion last week but could not specify which day last week it was SHAQUILLE ALARCON Source of Info: [facility] [place] [facility] Drug Last Refills Qty Filled Remaining ---- --- ------ --------- ---- medication: NOT using (duplicates removed) NICOTINE 2MG GUM 110 10/19/2023 (0) CHEW 1 PIECE IN MOUTH EVERY 2 HOURS PRN FOR QUITTING SMOKING NO SMOKING OR CHEWING TOBACCO WHILE USING GUM : 11/18/2023 Medications given in clinic: Not applicable Recently discontinued prescriptions: Not applicable \\\\\\\\\\\\\\\\\\\\\\\\\\\ \\\\\\\\\\\\\\\\\\\\\\\\\\\ \\\\\\\\\\\\\\\\\\\\\ Consider the following inpatient medications when reviewing list above to complete medication reconciliation: Active Inpatient Medications (including Supplies): Active Inpatient Medications Status 1) AMPHETAMINE RESIN COMPLEX CAP,SA 30MG PO QAM/NOON ACTIVE 2) DIAZEPAM INJ 5-20MG IV Q1H PRN Instructions too ACTIVE long. See order details for full text. 3) DIAZEPAM TAB 5-20MG PO Q1H PRN Instructions too ACTIVE long. See order details for full text. 4) FOLIC ACID TAB 1MG PO QDAY ACTIVE 5) INFLUENZA INJ 0.5ML IM ONCE Instructions too long. ACTIVE See order details for full text. 6) MELATONIN CAP/TAB 3MG PO QHS PRN for sleep ACTIVE 7) ONDANSETRON INJ,SOLN 4MG/2ML IV Q6H PRN FOR NAUSEA ACTIVE 8) POTASSIUM PHOSPHATE/SODIUM PHOSPHATE TAB 1 TABLET PO ACTIVE BID FOR 2 DOSES ONLY (1 tab KPhos Neutral = 8 mmol PHOS, 13 mEq Na, 1.1 mEq K) 9) SALINE FLUSH INJ 10ML IV Q8H AFTER EACH USE, MINIMUM ACTIVE OF EVERY SHIFT. 10) THIAMINE INJ,SOLN 200MG/2ML IV TID x 2 days; infuse ACTIVE as slow IV push over 1-2 minutes via carey stock 11) THIAMINE TAB 100MG PO QDAY begin after IV order; ACTIVE consider continuing at discharge for patients with sustained heavy drinking /samuel/ RHETT BERGERON PHARMACIST Signed: 05/11/2024 09:01 Receipt Acknowledged By: 05/11/2024 11:39 /samuel/ MARGO CANSECO RESIDENT PHYSICIAN RHETT BERGERON [facility]
--- OUTSIDE RECORDS SUMMARY | 2024-05-11 11:28 | XMS_ITS | Encounter Summary ---
Author Name [facility] Organization [facility] Address [address] [place] [address] Care Team Providers Care Certified Medical Assistant Name Role Phone RAGINI BLANK Primary Care [...] section includes the information on record at [place] for the Encounter. Date/Time Encounter Type Encounter Description Reason Pro vider Source May 11, 2024 04:28 PM Inpatient Visit CLINICAL PHARMACY I[facility] Encounter Template Text not used by PA Plan of Treatment: Future Appointments (+ 6 months) and Future Tests (+/- 45 days) The Plan of Treatment section includes future care activities for the patient from all [place] treatmentfacilities. This section includes future appointments and future orders which are active, pending or scheduled. Future Appointments This section includes appointments that were scheduled to occur 6 months from the date of the Encounter, up to a maximum of 20 appointments. The data comes from all [place] treatment facilities. Appointment Date/Time Appointment Type Appointme nt Facility Name May 15, 2024 11:00 AM AMBULATORY - PSYCHIATRY [facility] May 17, 2024 02:30 PM AMBULATORY - PSYCHIATRY RI [facility] May 26, 2024 10:00 AM AMBULATORY - PSYCHIATRY RI [facility] Jun 12, 2024 01:00 PM AMBULATORY - PSYCHIATRY RI [facility] Jun 15, 2024 03:30 PM [facility] Jul 17, 2024 11:00 AM AMBULATORY - NONE [facility] Jul 18, 2024 07:01 AM AMBULATORY - NONE [facility] Jul 18, 2024 10:30 AM AMBULATORY - MEDICINE [facility] Aug 21, 2024 02:23 PM AMBULATORY - NONE [facility] Active, Pending, and Scheduled Orders This section includes a listing of several types of active, pending, and scheduled orders, including clinic medications orders, diagnostic test orders, procedure orders and consult orders; where the start date of the order is 45 days before the date of the Encounter or 45 days after the date of theEncounter. The data comes from all [facility] facilities. Test Date/Time Test Type Test Details Facility Name May 10, 2024 04:38 PM Laboratory - Chemi stry Order DRUG SCREEN PANEL,URINE URINE WC ONCE [facility] May 11, 2024 08:54 AM Laboratory - Chemi stry Order PERIPHERAL SMEAR PATHOLOGIST REVIEW BLOOD WC ONCE [facility] Lab Results: +/- 30 days of the encounter This section includes the Chemistry and Hematology Lab Results on record with [place] for the patient. Radiology Reports and Pathology Reports are provided separately, in subsequent sections. Lab Results This section contains the Chemistry/Hematology Results that were resulted 30 days before or 30 daysafter the date of the Encounter. Date/Time Source Result Type Result - Unit Interpretation Reference Range Specimen Type Comment May 11, 2024 07:53 AM [facility] CBC BLOOD Specimen Type: BLOOD No comment entered. Ordering Provider: REGAN CANSECO Report Released Date/Time: May 10, 2024 07:15 PM Reporting Lab: [facility] [phone] Performing Lab: [facility] [phone] WBC 5.1 4.0-11.0 RBC 4.19 L 4.60-6.20 HGB 12.5 g/dL L 13.5-17.9 HCT 36.6 L 41.0-54.0 MCV 87.4 fL 80.0-100.0 MCH 29.8 pg 27.0-33.0 MCHC 34.2 g/dL 32.0-37.5 PLT 74 L 150-400 MPV 10.6 fL 9.1-13.0 RDW 13.3 11.5-14.5 IPF 5.6 0-10 May 11, 2024 07:53 AM [facility] ALBUMIN PLASMA Specimen Type : PLASMA No comment entered. Ordering Provider: MARGO CANSECO Report Released Date/Time: May 10, 2024 07:15 PM Reporting Lab: [facility] [phone] Performing Lab: [facility] [phone] ALBUMIN 3.7 g/dL 3.5-5.0 May 11, 2024 07:53 AM [facility] PHOSPHORUS PLASMA Specimen Type : PLASMA No comment entered. Ordering Provider: MARGO CANSECO Report Released Date/Time: May 10, 2024 08:52 PM Reporting Lab: [facility] [phone] Performing Lab: [facility] [phone] PHOSPHORUS 2.6 mg/dL 2.3-4.3 May 11, 2024 07:53 AM [facility] COMPREHENSIVE METABOLIC PANEL+MG PLASMA Specimen Type: PLASMA No comment entered. Ordering Provider: MARGO CANSECO Report Released Date/Time: May 10, 2024 07:15 PM Reporting Lab: [facility] [phone] Performing Lab: [facility] [phone] CREATININE 0.8 mg/dL 0.7-1.2 UREA NITROGEN 11 [...] mg/dL <0.5 May 10, 2024 09:08 PM [facility] DRUG SCREEN PANEL,URINE URINE Spec imen Type: URINE Comment: Presumptive Positive by screen, results not confirmed. Glucose present in urine. No yeast detected. Ordering Provider: MARGO CANSECO Report Released Date/Time: May 10, 2024 07:15 PM Reporting Lab: [facility] [phone] Performing Lab: [facility] [phone] BARBITURATES Negative Negative AMPHETAMINES Negative Negative COCAINE Negative Negative BENZODIAZEPINES Negative Negative CANNABINOIDS POSITIVE H Negative METHADONE Negative Negative OPIATES Negative Negative PHENCYCLIDINE Negative Negative ETHANOL,URINE POSITIVE H Negative DRUG SCREEN CREAT 298.7 mg/dL >20.0 OXYCODONE Negative Negative BUPRENORPHINE Negative Negative TRAMADOL Negative Negative FENTANYL Negative Negative DRUG SCREEN GLUCOSE POSITIVE Negative May 10, 2024 04:50 PM [facility] ETHANOL PLASMA Specimen Type: PLASMA No comment entered. Ordering Provider: PAXTON DAY Report Released Date/Time: May 10, 2024 04:38 PM Reporting Lab: [facility] [phone] Performing Lab: [facility] [phone] ETHANOL 286 mg/dL NEGATIVE May 10, 2024 04:50 PM [facility] LIPASE PLASMA Specimen Type: PLASMA No comment entered. Ordering Provider: PAXTON DAY Report Released Date/Time: May 10, 2024 04:38 PM Reporting Lab: [facility] [phone] Performing Lab: [facility] [address] LIPASE 49 U/L <60 May 10, 2024 04:50 PM [facility] PHOSPHORUS PLASMA Specimen Type : PLASMA No comment entered. Ordering Provider: MARGO CANSECO Report Released Date/Time: May 10, 2024 07:15 PM Reporting Lab: [facility] [phone] Performing Lab: [facility] [phone] PHOSPHORUS 1.8 mg/dL L 2.3-4.3 May 10, 2024 04:50 PM [facility] ACETAMINOPHEN PLASMA Specimen Type : PLASMA No comment entered. Ordering Provider: MARGO CANSECO Report Released Date/Time: May 10, 2024 07:15 PM Reporting Lab: [facility] [phone] Performing Lab: [facility] [phone] ACETAMINOPHEN <3.0 ug/mL L 10.0-30.0 May 10, 2024 04:50 PM [facility] COMPREHENSIVE METABOLIC PANEL+MG PLASMA Specimen Type: PLASMA No comment entered. Ordering Provider: PAXTON DAY Report Released Date/Time: May 10, 2024 04:38 PM Reporting Lab: [facility] [phone] Performing Lab: [facility] [address] CREATININE 0.8 mg/dL 0.7-1.2 UREA NITROGEN 14 [...] >90 >60 May 10, 2024 04:50 PM [facility] SALICYLATE SERUM Specimen Type : SERUM No comment entered. Ordering Provider: MARGO CANSECO Report Released Date/Time: May 10, 2024 07:15 PM Reporting Lab: [facility] [phone] Performing Lab: [facility] [phone] SALICYLATE <5.0 mg/dL L 15.0-30.0 May 10, 2024 04:50 PM [facility] CBC & DIFF BLOOD Specimen Type: BLOOD Comment: Automated Differential Performed Ordering Provider: PAXTON DAY Report Released Date/Time: May 10, 2024 04:38 PM Reporting Lab: [facility] [phone] Performing Lab: [facility] [phone] WBC 5.5 4.0-11.0 RBC 5.10 4.60-6.20 HGB [...] 4.5 0-10 May 10, 2024 04:30 PM [facility] EXTRA GOLD GEL TUBE SERUM Specimen Type: SERUM No comment entered. Ordering Provider: PAXTON DAY Report Released Date/Time: May 10, 2024 05:15 PM Reporting Lab: [facility] [phone] Performing Lab: [facility] [phone] EXTRA GOLD GEL TUBE RECEIVED May 05, 2024 03:27 PM [facility] ACT PART THROMBO TIME PLASMA Specim en Type: PLASMA No comment entered. Ordering Provider: GIL HARPER Report Released Date/Time: May 05, 2024 03:27 PM Reporting Lab: [facility] [phone] Performing Lab: [facility] [address] APTT 31.1 s 25.1-36.5 May 05, 2024 03:27 PM [facility] ETHANOL PLASMA Specimen Type : PLASMA No comment entered. Ordering Provider: GIL HARPER Report Released Date/Time: May 05, 2024 03:27 PM Reporting Lab: [facility] [phone] Performing Lab: [facility] [phone] ETHANOL 443 mg/dL NEGATIVE May 05, 2024 03:27 PM [facility] PROTHROMBIN TIME/INR PLASMA Specime n Type: PLASMA No comment entered. Ordering Provider: GIL HARPER Report Released Date/Time: May 05, 2024 03:27 PM Reporting Lab: [facility] [phone] Performing Lab: [facility] [phone] .INR 0.9 0.8-1.1 .PT 10.6 s 9.4-12.5 May 05, 2024 03:27 PM [facility] EXTRA GOLD GEL TUBE SERUM Specimen Type: SERUM No comment entered. Ordering Provider: GIL HARPER Report Released Date/Time: May 05, 2024 03:38 PM Reporting Lab: [facility] [phone] Performing Lab: [facility] [phone] EXTRA GOLD GEL TUBE RECEIVED May 05, 2024 03:27 PM [facility] COMPREHENSIVE METABOLIC PANEL+MG PLASMA Specimen Type: PLASMA No comment entered. Ordering Provider: GIL HARPER Report Released Date/Time: May 05, 2024 03:27 PM Reporting Lab: [facility] [phone] Performing Lab: [facility] [phone] CREATININE 0.7 mg/dL 0.7-1.2 UREA NITROGEN 15 [...] >90 >60 May 05, 2024 03:27 PM [facility] CBC & DIFF BLOOD Specimen Type : BLOOD Comment: Automated Differential Performed Ordering Provider: GIL HARPER Report Released Date/Time: May 05, 2024 03:27 PM Reporting Lab: [facility] [phone] Performing Lab: [facility] [phone] WBC 8.9 4.0-11.0 RBC 5.15 4.60-6.20 HGB [...] 95 127/77 18 98 0 [facility] May 11, 2024 01:08 PM 97.2 95 129/81 18 98 [facility] May 11, 2024 10:49 AM 97.4 93 116/70 16 97 [facility] May 11, 2024 08:04 AM 98.4 93 135/74 18 98 0 [facility] May 11, 2024 05:58 AM 98.0 96 132/71 16 96 [facility] Social History: Smoking Status (Most current) and Tobacco Use (All prior to encounter date) This section includes the most current, and the historical, smoking and tobacco- related health factors from the [place] facility where the Encounter took place. Current Smoking Status This section includes the most current smoking, or tobacco-related health factor, from the [place] facility where the Encounter took place. Date/Time Current Smoking Status Comment Facil ity November 01, 2018 12:58 PM VA-TOBACCO USE MED YES [facility] Tobacco Use History This section includes a history of the smoking, or tobacco-related health factors, that were collected on or before the date of the Encounter. The data comes from the [place] facility where the Encounter took place. Date/Time Smoking Status/Tobacco Use Comment F acility November 01, 2018 12:58 PM VA-TOBACCO USE 5 TO 15 YEARS [facility] November 01, 2018 12:58 PM VA-TOBACCO USE ADVICE [facility] November 01, 2018 12:58 PM VA-TOBACCO USE CROCHETER HAND YES [facility] November 01, 2018 12:58 PM VA-TOBACCO USE MED YES [facility] November 01, 2018 12:58 PM VA-TOBACCO USER EVERY DAY [facility] Aug 05, 2017 02:28 PM CURRENT TOBACCO USER [facility] Jun 10, 2016 02:39 PM INPT TOBACCO COUNSELING [facility] Jun 10, 2016 02:39 PM INPT TOBACCO USER [facility] Jun 10, 2016 08:23 AM CURRENT TOBACCO USER [facility] Advance Directives: All historical and current Section Date Range: From patient's date of to the date document was created. This section includes ALL of a patient's completed or amended [place] Advance and Rescinded Directives. The entries below indicate that a directive exists for the patient, but an actual copy is not included with this document. The data comes from all [facility]. Date Advance Directives Provider Source Mar 31, 2023 ADVANCE DIRECTIVE DISCUSSION APOORVA KHANNA [facility] Nov 30, 2022 ADVANCE DIRECTIVE DISCUSSION ALEXANDER CONNOR [facility] Jun 17, 2016 ADVANCE DIRECTIVE DISCUSSION CAROLINACAROLIN SANA Lomeli [facility] Jun 10, 2016 CLINICAL WARNING NAIDA BRADSHAW [facility] October 07, 2015 ADVANCE DIRECTIVE DISCUSSION Lemuel [facility] Radiology Reports: +/- 30 days of the [...] the Encounter. The data comes from all [place] treatment facilities. Date/Time Radiology Report Provider Source May 05, 2024 03:[address] HEAD (P): SHAQUILLE ALARCON [id number] -[id number] M Exm Date: MAY 05, 2024@15:44 Req Phys: GIL HARPER Loc: [facility] EMERGENCY DEPT WALK-IN (Re Img Loc: CT IMAGING Service: [place] [address] (Case [id number] COMPLETE) CT HEAD/BRAIN W/O CONTRAST (CT Detailed) CPT:70799 Reason for Study: fall headache Clinical History: [...] PLASMA .CREAT EGFR(CKD-E >90 Ref: >=60 Allergies: ([place] only) Patient has answered NKA Defer to radiologist for final CT protocol. My pager number on record is: . The pager number above is NOT correct and I have entered my correct pager number below: [phone] Trainees only: Enter your staff provider's info here: Per Joint Commission Standards, by signing this diagnostic imaging request the ordering provider confirms they have considered patients age and recent imaging history. Report Status: Verified Date Reported: MAY 05, 2024 Date Verified: MAY 05, 2024 Fat Purification Worker E-Sig:/ES/BILL FLETCHER MD Report: EXAM: CT HEAD/BRAIN [...] Primary Interpreting Staff: BILL FLETCHER MD, RADIOLOGIST (Fat Purification Worker) /BILL HAIDER [facility] Encounter Notes: All associated encounter notes This section contains the clinical notes associated to the Encounter. Date/Time Encounter Note(s) Provider Source May 11, 2024 04:28 PM PHARMACY EDUCATION NOTE: LOCAL TITLE: EDUCATION PHARMACY MED INSTRUCTION/RECONCILIATION STANDARD TITLE: PHARMACY EDUCATION NOTE DATE OF NOTE: MAY 11, 2024@16:28 ENTRY DATE: MAY 11, 2024@16:28:27 AUTHOR: RHETT BERGERON COSIGNER: URGENCY: STATUS: COMPLETED MEDICATION DISCHARGE EDUCATION LEARNING NEEDS/OBJECTIVES Participant(s) indicates readiness to learn and has been instructed on indications, side effects, directions for use and given a list of medications. Participant(s) will receive medication information sheets for medications filled. Education included discussion of the following: DISCHARGE MEDICATION LIST WHAT'S NEW: gabapentin * can take with or without food * can cause drowsiness and/or dizziness ? do not drive or operate heavy machinery until you know how this medication affects you Continue to take all other medications as prescribed. Drug Last Refills Rx # Qty Filled Remaining AMPHETAMINE/DEXTROAMPHET 30MG SA CAP [id number] 05/09/2024 (0) TAKE ONE CAPSULE BY MOUTH TWICE A DAY FOR ATTENTION Indication: FOR ATTENTION Provider: AUBREY MATIAS FOLIC ACID 1MG TAB [id number] 30 04/03/2024 (0) TAKE ONE TABLET BY MOUTH EVERY DAY FOR FOLIC ACID SUPPLEMENT Indication: FOR FOLIC ACID SUPPLEMENT Provider: NIRU THOMAS GABAPENTIN 300MG CAP [id number] 05/11/2024 (0) TAKE TWO CAPSULES THREE TIMES A DAY FOR 2 DAYS, THEN TAKE ONE CAPSULE BY MOUTH THREE TIMES A DAY FOR 2 DAYS FOR ALCOHOL WITHDRAWAL Indication: FOR ALCOHOL WITHDRAWAL Provider: MARGO CANSECO MULTIVITAMIN/MINERALS SENIOR FORMULA TAB [id number] 12/20/2023 (2) TAKE 1 TABLET BY MOUTH EVERY DAY FOR SUPPLEMENT Indication: FOR SUPPLEMENT Provider: AUBREY MATIAS THIAMINE 100MG TAB [id number] 100 03/07/2024 (0) TAKE ONE TABLET BY MOUTH EVERY DAY FOR SUPPLEMENT Indication: FOR SUPPLEMENT Provider: NIRU THOMAS H TRAZODONE HCL 100MG TAB [id number] 03/13/2024 (1) TAKE ONE TABLET BY MOUTH AT BEDTIME NEEDED FOR SLEEP Indication: FOR SLEEP Provider: AUBREY MATIAS Medications you get from outside of the [place] KETAMINE INJ,SOLN Statement/Explanation/Comme nt: since 07/2023 through [facility], weekly \\\\\\\\\\\\\\\\\\\\\\\\\\\ \\\\\\\\\\\\\\\\\\\\\\\\\\\ \\\\\\\\\\\\\\\\\\\\\\\\ Tobacco Cessation Discharge Plan Patient declined tobacco cessation medications and follow up services at discharge. PARTICIPANTS: Patient TEACHING STRATEGY: Face to Face, Medication information sheets and list of medications READINESS TO LEARN No barriers identified PATIENT/FAMILY RESPONSE (OUTCOME): Verbalizes critical information about the topic FOLLOW-UP RECOMMENDED: As directed by discharging provider /samuel/ RHETT BERGERON PHARMACIST Signed: 05/11/2024 16:30 Receipt Acknowledged By: 05/11/2024 16:31 /samuel/ MAGRO CANSECO RESIDENT PHYSICIAN RHETT BERGERON [facility]
--- OUTSIDE RECORDS SUMMARY | 2024-05-17 09:56 | XMS_ITS | Encounter Summary ---
Author Name [facility] [place] Address [address] [place] [address] Care Team Providers Care Financial Analysis Consultant Name Role Phone RAGINI BLANK Primary Care [...] Encounter Description Reason Pro vider Source May 17, 2024 02:56 PM Outpatient Encounter CLINICAL PHARMACY IHE Encounter Template Text not [...] Appointment Type Appointme nt Facility Name May 26, 2024 10:00 AM AMBULATORY - PS[facility]CHIATRY [facility] Jun 12, 2024 01:00 PM AMBULATORY - PSYCHIATRY [facility] Jun 15, 2024 03:30 PM AMBULATORY - PSYCHIATRY [facility] Jul 17, 2024 11:00 AM AMBULATORY - NONE [facility] Jul 18, 2024 07:01 AM AMBULATORY - NONE [facility] Jul 18, 2024 10:30 AM AMBULATORY - MEDICINE [facility] Aug 21, 2024 02:23 PM AMBULATORY - NONE [facility] Active, Pending, and Scheduled Orders This section includes a listing of several types of active, pending, and scheduled orders, including clinic medications orders, diagnostic test orders, procedure orders and consult orders; where the start date of the order is 45 days before the date of the Encounter or 45 days after the date of theEncounter. The data comes from all [place] treatment facilities. Test Date/Time Test Type Test Details Facility Name May 10, 2024 04:38 PM Laboratory - Chemi stry Order DRUG SCREEN PANEL,URINE URINE WC ONCE [facility] May 11, 2024 08:54 AM Laboratory - Chemi stry Order PERIPHERAL SMEAR PATHOLOGIST REVIEW BLOOD WC ONCE [facility] Lab Results: +/- 30 days of the [...] Type Comment May 11, 2024 07:53 AM [facility] CBC BLOOD Specimen Type: BLOOD No comment entered. Ordering Provider: REGAN CANSECO Report Released Date/Time: May 10, 2024 07:15 PM Reporting Lab: [facility] [address] Performing Lab: [facility] [address] WBC 5.1 4.0-11.0 RBC 4.19 L 4.60-6.20 HGB 12.5 g/dL L 13.5-17.9 HCT 36.6 L 41.0-54.0 MCV 87.4 fL 80.0-100.0 MCH 29.8 pg 27.0-33.0 MCHC 34.2 g/dL 32.0-37.5 PLT 74 L 150-400 MPV 10.6 fL 9.1-13.0 RDW 13.3 11.5-14.5 IPF 5.6 0-10 May 11, 2024 07:53 AM [facility] ALBUMIN PLASMA Specimen Type : PLASMA No comment entered. Ordering Provider: MARGO CANSECO Report Released Date/Time: May 10, 2024 07:15 PM Reporting Lab: [facility] [phone] Performing Lab: [facility] [address] ALBUMIN 3.7 g/dL 3.5-5.0 May 11, 2024 07:53 AM [facility] PHOSPHORUS PLASMA Specimen Type : PLASMA No comment entered. Ordering Provider: MARGO CANSECO Report Released Date/Time: May 10, 2024 08:52 PM Reporting Lab: [facility] [address] Performing Lab: [facility] [address] PHOSPHORUS 2.6 mg/dL 2.3-4.3 May 11, 2024 07:53 AM [facility] COMPREHENSIVE METABOLIC PANEL+MG PLASMA Specimen Type: PLASMA No comment entered. Ordering Provider: MARGO CANSECO Report Released Date/Time: May 10, 2024 07:15 PM Reporting Lab: [facility] [address] Performing Lab: [facility] [address] CREATININE 0.8 mg/dL 0.7-1.2 UREA NITROGEN 11 [...] mg/dL <0.5 May 10, 2024 09:08 PM [facility] DRUG SCREEN PANEL,URINE URINE Spec imen Type: URINE Comment: Presumptive Positive by screen, results not confirmed. Glucose present in urine. No yeast detected. Ordering Provider: MARGO CANSECO Report Released Date/Time: May 10, 2024 07:15 PM Reporting Lab: [facility] [address] Performing Lab: [facility] [address] BARBITURATES Negative Negative AMPHETAMINES Negative Negative COCAINE Negative Negative BENZODIAZEPINES Negative Negative CANNABINOIDS POSITIVE H Negative METHADONE Negative Negative OPIATES Negative Negative PHENCYCLIDINE Negative Negative ETHANOL,URINE POSITIVE H Negative DRUG SCREEN CREAT 298.7 mg/dL >20.0 OXYCODONE Negative Negative BUPRENORPHINE Negative Negative TRAMADOL Negative Negative FENTANYL Negative Negative DRUG SCREEN GLUCOSE POSITIVE Negative May 10, 2024 04:50 PM [facility] ETHANOL PLASMA Specimen Type: PLASMA No comment entered. Ordering Provider: PAXTON DAY Report Released Date/Time: May 10, 2024 04:38 PM Reporting Lab: [facility] [address] Performing Lab: [facility] [address] ETHANOL 286 mg/dL NEGATIVE May 10, 2024 04:50 PM [facility] LIPASE PLASMA Specimen Type: PLASMA No comment entered. Ordering Provider: PAXTON DAY Report Released Date/Time: May 10, 2024 04:38 PM Reporting Lab: [facility] [address] Performing Lab: [facility] [address] LIPASE 49 U/L <60 May 10, 2024 04:50 PM [facility] PHOSPHORUS PLASMA Specimen Type : PLASMA No comment entered. Ordering Provider: MARGO CANSECO Report Released Date/Time: May 10, 2024 07:15 PM Reporting Lab: [facility] [address] Performing Lab: [facility] [address] PHOSPHORUS 1.8 mg/dL L 2.3-4.3 May 10, 2024 04:50 PM [facility] ACETAMINOPHEN PLASMA Specimen Type : PLASMA No comment entered. Ordering Provider: MARGO CANSECO Report Released Date/Time: May 10, 2024 07:15 PM Reporting Lab: [facility] [address] Performing Lab: [facility] [address] ACETAMINOPHEN <3.0 ug/mL L 10.0-30.0 May 10, 2024 04:50 PM [facility] COMPREHENSIVE METABOLIC PANEL+MG PLASMA Specimen Type: PLASMA No comment entered. Ordering Provider: PAXTON DAY Report Released Date/Time: May 10, 2024 04:38 PM Reporting Lab: [facility] [address] Performing Lab: [facility] [address] CREATININE 0.8 mg/dL 0.7-1.2 UREA NITROGEN 14 [...] >90 >60 May 10, 2024 04:50 PM [facility] SALICYLATE SERUM Specimen Type : SERUM No comment entered. Ordering Provider: MARGO CANSECO Report Released Date/Time: May 10, 2024 07:15 PM Reporting Lab: [facility] [address] Performing Lab: [facility] [address] SALICYLATE <5.0 mg/dL L 15.0-30.0 May 10, 2024 04:50 PM [facility] CBC & DIFF BLOOD Specimen Type: BLOOD Comment: Automated Differential Performed Ordering Provider: PAXTON DAY Report Released Date/Time: May 10, 2024 04:38 PM Reporting Lab: [facility] [address] Performing Lab: [facility] [address] WBC 5.5 4.0-11.0 RBC 5.10 4.60-6.20 HGB [...] 4.5 0-10 May 10, 2024 04:30 PM [facility] EXTRA GOLD GEL TUBE SERUM Specimen Type: SERUM No comment entered. Ordering Provider: PAXTON DAY Report Released Date/Time: May 10, 2024 05:15 PM Reporting Lab: [facility] [address] Performing Lab: [facility] [address] EXTRA GOLD GEL TUBE RECEIVED May 05, 2024 03:27 PM [facility] ACT PART THROMBO TIME PLASMA Specim en Type: PLASMA No comment entered. Ordering Provider: GIL HARPER Report Released Date/Time: May 05, 2024 03:27 PM Reporting Lab: [facility] [address] Performing Lab: [facility] [address] APTT 31.1 s 25.1-36.5 May 05, 2024 03:27 PM [facility] ETHANOL PLASMA Specimen Type : PLASMA No comment entered. Ordering Provider: GIL HARPER Report Released Date/Time: May 05, 2024 03:27 PM Reporting Lab: [facility] [address] Performing Lab: [facility] [address] ETHANOL 443 mg/dL NEGATIVE May 05, 2024 03:27 PM [facility] PROTHROMBIN TIME/INR PLASMA Specime n Type: PLASMA No comment entered. Ordering Provider: GIL HARPER Report Released Date/Time: May 05, 2024 03:27 PM Reporting Lab: [facility] [address] Performing Lab: [facility] [address] .INR 0.9 0.8-1.1 .PT 10.6 s 9.4-12.5 May 05, 2024 03:27 PM [facility] EXTRA GOLD GEL TUBE SERUM Specimen Type: SERUM No comment entered. Ordering Provider: GIL HARPER Report Released Date/Time: May 05, 2024 03:38 PM Reporting Lab: [facility] [address] Performing Lab: [facility] [address] EXTRA GOLD GEL TUBE RECEIVED May 05, 2024 03:27 PM [facility] COMPREHENSIVE METABOLIC PANEL+MG PLASMA Specimen Type: PLASMA No comment entered. Ordering Provider: GIL HARPER Report Released Date/Time: May 05, 2024 03:27 PM Reporting Lab: [facility] [address] Performing Lab: [facility] [address] CREATININE 0.7 mg/dL 0.7-1.2 UREA NITROGEN 15 [...] >90 >60 May 05, 2024 03:27 PM [facility] CBC & DIFF BLOOD Specimen Type : BLOOD Comment: Automated Differential Performed Ordering Provider: GIL HARPER Report Released Date/Time: May 05, 2024 03:27 PM Reporting Lab: [facility] [address] Performing Lab: [facility] [address] WBC 8.9 4.0-11.0 RBC 5.15 4.60-6.20 HGB [...] IG(META,MYELO,PRO) 0.2 ABS IMMATURE GRAN 0.0 0.0-0.1 Social History: Smoking Status (Most current) and [...] place. Date/Time Current Smoking Status Comment Facil sue May 17, 2024 02:30 PM VA-TOBACCO USE EVERY DAY CIGARET [facility] Tobacco Use History This section includes a history of the smoking, or tobacco-related health factors, that were collected on or before the date of the Encounter. The data comes from the [place] facility where the Encounter took place. Date/Time Smoking Status/Tobacco Use Comment F acility May 17, 2024 02:30 PM VA-TOBACCO USE EVERY DAY CIGARET [facility] November 01, 2018 12:58 PM VA-TOBACCO DOESNT USE WI 30 MIN WAKEUP [facility] November 01, 2018 12:58 PM VA-TOBACCO USE 5 TO 15 YEARS [facility] November 01, 2018 12:58 PM VA-TOBACCO USE ADVICE [facility] November 01, 2018 12:58 PM VA-TOBACCO USE TOUR CONDUCTOR YES [facility] November 01, 2018 12:58 PM VA-TOBACCO USE MED YES [facility] November 01, 2018 12:58 PM VA-TOBACCO USER EVERY DAY [facility] Aug 05, 2017 02:28 PM CURRENT TOBACCO USER [facility] Jun 10, 2016 02:39 PM INPT TOBACCO COUNSELING [facility] Jun 10, 2016 02:39 PM INPT TOBACCO USER [place] [facility] Jun 10, 2016 08:23 AM CURRENT TOBACCO USER [facility] Advance Directives: All historical and current Section Date Range: From patient's date of to the date document was created. This section includes ALL of a patient's completed or amended [place] Advance and Rescinded Directives. The entries below indicate that a directive exists for the patient, but an actual copy is not included with this document. The data comes from all [facility]. Date Advance Directives Provider Source Mar 31, 2023 ADVANCE DIRECTIVE DISCUSSION APOORVA KHANNA [facility] Nov 30, 2022 ADVANCE DIRECTIVE DISCUSSION ALEXANDER CONNOR [facility] Jun 17, 2016 ADVANCE DIRECTIVE DISCUSSION CAROLIN FIGUEROA AE [facility] Jun 10, 2016 CLINICAL WARNING AUGUSTINENAIDA JM [facility] October 07, 2015 ADVANCE DIRECTIVE DISCUSSION Lemuel URRUTIA [facility] Radiology Reports: +/- 30 days [...] 03:[address] HEAD (P): SHAQUILLE ALARCON [id number] -[id number] M Exm Date: MAY 05, 2024@15:44 Req Phys: LEROYGILBALDEV Mcduffie Loc: [facility] EMERGENCY DEPT WALK-IN (Re Img Loc: CT IMAGING Service: [place] [address] (Case [id number] COMPLETE) CT HEAD/BRAIN W/O CONTRAST (CT Detailed) CPT:37301 Reason for Study: fall headache Clinical History: [...] PLASMA .CREAT EGFR(CKD-E >90 Ref: >=60 Allergies: ([place] only) Patient has answered NKA Defer to radiologist for final CT protocol. My pager number on record is: . The pager number above is NOT correct and I have entered my correct pager number below: [phone] Trainees only: Enter your staff provider's info here: Per Joint Commission Standards, by signing this diagnostic imaging request the ordering provider confirms they have considered patients age and recent imaging history. Report Status: Verified Date Reported: MAY 05, 2024 Date Verified: MAY 05, 2024 Tower Dragline Operator E-Sig:/ES/BILL FLETCHER MD Report: EXAM: CT HEAD/BRAIN [...] Primary Interpreting Staff: BILL FLETCHER MD, RADIOLOGIST (Tower Dragline Operator) /BILL HAIDER [facility] Encounter Notes: All associated encounter notes This section contains the clinical notes associated to the Encounter. Date/Time Encounter Note(s) Provider Source May 17, 2024 02:56 PM EDUCATION NOTE: LOCAL TITLE: EDUCATION MEDICATION INSTRUCTION STANDARD TITLE: EDUCATION NOTE DATE OF NOTE: MAY 17, 2024@14:56 ENTRY DATE: MAY 17, 2024@14:56:22 AUTHOR: MIKAYLA PRAKASH EXP COSIGNER: URGENCY: STATUS: COMPLETED MEDICATION EDUCATION PARTICIPANTS: Patient TEACHING STRATEGY: Face to Face READINESS TO LEARN: No barriers identified LEARNING NEEDS/OBJECTIVES Participant(s) indicates readiness to learn and has been instructed on indications, side effects, and directions for use. Participant(s) will receive medication information sheets for medications filled. Education included discussion of the following new medication(s): DISULFIRAM PATIENT/FAMILY RESPONSE (OUTCOME): Verbalizes critical information about the topic FOLLOW-UP RECOMMENDED: None needed /es/ MIKAYLA PRAKASH PharmD, BCPS PHARMACIST Signed: 05/17/2024 14:56 MIKAYLA PRAKASH [facility]
--- OUTSIDE RECORDS SUMMARY | 2024-06-12 08:00 | XMS_ITS | Encounter Summary ---
Author Name [facility] [place] Organization [place] Address [address] [place] [id number] Care Team Providers Care Mushroom Growth Media Mixer Name Role Phone RAGINI BLANK Primary Care [...] section includes the information on record at [place] for the Encounter. Date/Time Encounter Type Encounter Description Reason Provider Source Jun 12, 2024 01:00 PM PSYTX W PT 45 MINUTES [facility] - IND ICD-10-CM F43.10 Post-traumatic stress disorder, unspecified NETTIE BARNES Yani Encounter Template Text not used by [place] Assessments - Encounter Diagnoses This section includes the primary and secondary diagnoses documented for the Encounter. Date/Time Primary/Secondary Diagnosis Diagnosis Name Provider Source Jun 12, 2024 03:50 PM PRIMARY Post-traumatic stress disorder, unspecified NETTIE BARNES [facility] Jun 12, 2024 03:50 PM SECONDARY Alcohol dependence, uncomplicated NETTIE BARENS [facility] Jun 12, 2024 03:50 PM SECONDARY Other recurrent depressive disorders NETTIE BARNES [facility] Plan of Treatment: Future Appointments (+ 6 months) and Future Tests (+/- 45 days) The Plan of Treatment section includes future care activities for the patient from all [place] treatmentfacilities. This section includes future appointments and future orders which are active, pending or scheduled. Future Appointments This section includes appointments that were scheduled to occur 6 months from the date of the Encounter, up to a maximum of 20 appointments. The data comes from all [facility]. Appointment Date/Time Appointment Type Appointme nt Facility Name Jun 15, 2024 03:30 PM AMBULATORY [place] [facility] Jul 17, 2024 11:00 AM AMBULATORY - NONE [place] [facility] Jul 18, 2024 07:01 AM AMBULATORY - NONE [place] [facility] Jul 18, 2024 10:30 AM AMBULATORY - MEDICINE [facility] Aug 21, 2024 02:23 PM AMBULATORY - NONE [facility] Active, Pending, and Scheduled Orders This section includes a listing of several types of active, pending, and scheduled orders, including clinic medications orders, diagnostic test orders, procedure orders and consult orders; where the start date of the order is 45 days before the date of the Encounter or 45 days after the date of theEncounter. The data comes from all [facility]. Test Date/Time Test Type Test Details Facility Name May 10, 2024 04:38 PM Laboratory - Chemi stry Order DRUG SCREEN PANEL,URINE URINE WC ONCE [facility] May 11, 2024 08:54 AM Laboratory - Chemi stry Order PERIPHERAL SMEAR PATHOLOGIST REVIEW BLOOD WC ONCE [facility] Jul 13, 2024 04:22 PM Consult Order COMMUNITY CARE-TREATMENT RESISTANT DEPRESSION Cons Head Still Operator's Choice [facility] Social History: Smoking Status (Most current) and Tobacco Use (All prior to encounter date) This section includes the most current, and the historical, smoking and tobacco- related health factors from the [place] facility where the Encounter took place. Current Smoking Status This section includes the most current smoking, or tobacco-related health factor, from the [place] facility where the Encounter took place. Date/Time Current Smoking Status Comment Facil ity May 17, 2024 02:30 PM VA-TOBACCO USE EVERY DAY CIGARET [place] [facility] Tobacco Use History This section includes a history of the smoking, or tobacco-related health factors, that were collected on or before the date of the Encounter. The data comes from the [place] facility where the Encounter took place. Date/Time Smoking Status/Tobacco Use Comment F acility May 17, 2024 02:30 PM VA-TOBACCO USE EVERY DAY CIGARET [place] [facility] November 01, 2018 12:58 PM VA-TOBACCO DOESNT USE WI 30 MIN WAKEUP [facility] November 01, 2018 12:58 PM VA-TOBACCO USE 5 TO 15 YEARS [facility] November 01, 2018 12:58 PM VA-TOBACCO USE ADVICE [facility] November 01, 2018 12:58 PM VA-TOBACCO USE CLERICAL INVESTIGATOR YES [facility] November 01, 2018 12:58 PM VA-TOBACCO USE MED YES [facility] November 01, 2018 12:58 PM VA-TOBACCO USER EVERY DAY [facility] Aug 05, 2017 02:28 PM CURRENT TOBACCO USER [facility] Jun 10, 2016 02:39 PM INPT TOBACCO COUNSELING [facility] Jun 10, 2016 02:39 PM INPT TOBACCO USER [place] [facility] Jun 10, 2016 08:23 AM CURRENT TOBACCO USER [facility] Advance Directives: All historical and current Section Date Range: From patient's date of to the date document was created. This section includes ALL of a patient's completed or amended [place] Advance and Rescinded Directives. The entries below indicate that a directive exists for the patient, but an actual copy is not included with this document. The data comes from all [place] facilities. Date Advance Directives Provider Source Mar 31, 2023 ADVANCE DIRECTIVE DISCUSSION APOORVA KHANNA [facility] Nov 30, 2022 ADVANCE DIRECTIVE DISCUSSION ALEXANDER CONNOR [facility] Jun 17, 2016 ADVANCE DIRECTIVE DISCUSSION CAROLIN FIGUEROA AE [facility] Jun 10, 2016 CLINICAL WARNING SANTOSHEILAREJINAIDA BRANCH JM [facility] October 07, 2015 ADVANCE DIRECTIVE DISCUSSION Lemuel URRUTIA [facility] Encounter Notes: All associated encounter notes This section contains the clinical notes associated to the Encounter. Date/Time Encounter Note(s) Provider Source Jun 12, 2024 01:00 PM MENTAL HEALTH NOTE : LOCAL TITLE: MH PROGRESS NOTE STANDARD TITLE: MENTAL HEALTH NOTE DATE OF NOTE: JUN 12, 2024@13:00 ENTRY DATE: JUN 12, 2024@13:30:52 AUTHOR: NETTIE BARNES COSIGNER: URGENCY: STATUS: COMPLETED MH PROGRESS NOTE Has ADDENDA Addictive Disorder Service SERVICE: Psychotherapy MODALITY: Relational LENGTH: Other: 40 min PATIENT EDUCATION: Readiness to learn: Attended session, Appeared to listen attentively Content: Patient Understanding: Verbalized comprehension of material, Asked questions for clarification DIAGNOSTIC IMPRESSION: Post Traumatic Stress Disorder Alcohol Use Disorder Depressive Disorder SCOPE: Follow Up OBJECTIVE: Patriot was seen F2F. He arrived late. He states he had a good holiday and spent time with his daughter. He will start school on 06/19/2024.He reports the weekly ketamine txs are very helpful. I talked to ness about seeing two therapists. He said he was provided a therapists from the court. His name is Tye Saunders, PhD, HOLTER TECHNICIAN with [employer] in [place], [place]. Ness said he sees him weekly although he missed a couple days due to holidays. He said the therapist is focused on trauma and vet is not sure he wants to go there. As ness is already working with the [facility] therapist I suggested he decide what he wants to do as he can only have one therapist at a time. I provided him with my card and asked him to let me know. ASSESSMENT: Mr. Mckeon is a 34 y/o [place] male with sxs of depression, PTSD and alcohol use. His mood is good. He reports his last use of alcohol was in early May 2024. Ness is scheduled to begin school on 06/19/2024. He has a therapist provided by the court. He was not rescheduled pending his decision on whom he will be working with, [facility] or his [facility]. RISK ASSESSMENT: Current Homicidal Ideation (within the last 30 days): Describe current homicidal ideation/intent/plan: states none Past Homicidal Ideation: Describe current homicidal ideation/intent/plan: states none Past Suicidal Behavior: Has the patient ever attempted suicide? No Describe history of past attempt(s) (include methods used, number of attempts and approximate month/year of most recent attempt: Current Suicidal Ideation/Desire (within the last 30 days): Describe current suicidal ideation/intent/plan: states none Patient reported the following factors that may increase the risk of suicidal acts/self-harm: recent suicidal/homicidal behavior (most risk in subsequent 2 years), recent psychiatric admission, hopelessness, substance use problems, impulsivity or risky behaviors, frequent/severe insomnia, disability, recent change in functioning, OEF/OIF Patriot, race (Euro [place], , -E[place]), gender (male) Patient reported the following protective factors: Strong social support system, No family history of mental health issues, Financially stable, Has meaningful family relationships, Has child-related responsibilities or responsibilities for another person (e.g. elder), Hope for the future, Strong desire to live, Protective personal traits or beliefs(e.g. pattern of help seeking, beliefs against suicide, cognitive flexibility), Report restorationism or spiritual beliefs/connections Firearms: No Other Lethal Means: No Overall assessment: Clinical Impression of ACUTE Risk: Low ACUTE risk (no current intent or recent preparatory behaviors) Clinical Impression of CHRONIC Risk Levels: Low CHRONIC Risk (Can identify strengths, activate and utilize resources, does not have chronic suicidal ideation or history of self-directed violence) Mental Status Exam General: Appearance: casual Motor: no unusual movements Speech: wnl Mood: he states it is good Affect: appropriate Thought Process: linear Thought Content: not at imminent risk Perceptual Disturbance: none noted Insight: fair Judgment: good Attention: oriented x 4 Informed consent for treatment and limits of confidentiality, in addition to limits and benefits of treatment, were reviewed with the in our initial session, at which time they indicated understanding and agreement. PLAN: 1) f/u scheduled 2) f/u with Dr. Moon Patriot leaves session w/judgment sufficient for safety. agrees to call/walk-in if having any needs prior to consecutive visit. Patriot informed/agrees to utilize safety services/resources if ever having thoughts of self-harm/harm to others i.e. calling [address] and/or National Suicide Hotline (4.594.091.XZQR 4834) and/or entering ER. /samuel/ HASEEB COULTER, JUAN CLINICAL CHEF Signed: 06/12/2024 15:52 06/12/2024 ADDENDUM STATUS: COMPLETED Correction: f/u not scheduled. Patriot agrees to contact me if he wishes to continue with therapy at the [place] vs court provided community therapist. /samuel/ HASEEB COULTER, JUAN CLINICAL CHEF Signed: 06/12/2024 15:54 NETTIE BARNES [facility]
--- OUTSIDE RECORDS SUMMARY | 2024-06-30 09:08 | XMS_ITS | Encounter Summary ---
Author Name [facility] [place] [facility] [place] Address [address] [place] [address] Care Team Providers Care Manager Stars Name Role Phone RAGINI BLANK Primary Care [...] section includes the information on record at [place] for the Encounter. Date/Time Encounter Type Encounter Description Reason Provider Source Jun 30, 2024 02:08 PM CASE MANAGEMENT [facility] JUSTICE OUTREACH ICD-10-CM F33.8 Other recurrent depressive disorders [facility] Encounter Template Text not used by [place] Assessments - Encounter Diagnoses This section includes the primary and secondary diagnoses documented for the Encounter. Date/Time Primary/Secondary Diagnosis Diagnosis Name Provider Source Jun 30, 2024 02:14 PM PRIMARY Other recurrent depressive disorders [facility]HIE RODRIGUEZ [facility] Jun 30, 2024 02:14 PM SECONDARY Problems related to other legal circumstances [facility] RODRIGUEZ [facility] Plan of Treatment: Future Appointments (+ 6 months) and Future Tests (+/- 45 days) The Plan of Treatment section includes future care activities for the patient from all [place] treatmentfacilities. This section includes future appointments and future orders which are active, pending or scheduled. Future Appointments This section includes appointments that were scheduled to occur 6 months from the date of the Encounter, up to a maximum of 20 appointments. The data comes from all [facility]. Appointment Date/Time Appointment Type Appointme nt Facility Name Jul 17, 2024 11:00 AM AMBULATORY - NONE [facility] Jul 18, 2024 07:01 AM AMBULATORY - NONE [facility] Jul 18, 2024 10:30 AM [facility]ORY - MEDICINE [facility] Aug 21, 2024 02:23 PM AMBULATORY - NONE [facility] Active, Pending, and Scheduled Orders This section includes a listing of several types of active, pending, and scheduled orders, including clinic medications orders, diagnostic test orders, procedure orders and consult orders; where the start date of the order is 45 days before the date of the Encounter or 45 days after the date of theEncounter. The data comes from all [facility]. Test Date/Time Test Type Test Details Facility Name Jul 13, 2024 04:22 PM Consult Order COMMUNITY CARE-TREATMENT RESISTANT DEPRESSION Cons [place] [employer] Worker's Choice [facility] Lab Results: +/- 30 days of the encounter This section includes the Chemistry and Hematology Lab Results on record with [place] for the patient. Radiology Reports and Pathology Reports are provided separately, in subsequent sections. Lab Results This section contains the Chemistry/Hematology Results that were resulted 30 days before or 30 daysafter the date of the Encounter. Date/Time Source Result Type Result - Unit Interpretation Reference Range Specimen Type Comment Jul 18, 2024 10:46 AM [facility] TSH W/REFLEX TO FREE T4 PLASMA Specimen Type: PLASMA No comment entered. Ordering Provider: RAGINI BLANK Report Released Date/Time: Jul 18, 2024 10:39 AM Reporting Lab: [facility] [id number] Performing Lab: [facility] [id number] TSH 1.88 u[IU]/mL 0.35-4.94 Jul 18, 2024 10:46 AM [facility] CALCIUM PLASMA Specimen Type: PLASMA No comment entered. Ordering Provider: RAGINI BLANK Report Released Date/Time: Jul 18, 2024 10:39 AM Reporting Lab: [facility] [id number] Performing Lab: [facility] [id number] CALCIUM 9.5 mg/dL 8.4-10.2 Jul 18, 2024 10:46 AM [facility] HEMOGLOBIN A1C BLOOD Specimen Type: B LOOD Comment: Values obtained from A1C measurements can vary. For typical A1C assays, a reported value of 7.0 could actually be between 6.7 and 7.3 if measured by a reference method. A reported value of 9.0 could actually be between 8.7 and 9.3. Ref: http://www.ngsp.org/CAPdata.asp Ordering Provider: RAGINI BLANK Report Released Date/Time: Jul 18, 2024 10:39 AM Reporting Lab: [facility] [id number] Performing Lab: [facility] [id number] HEMOGLOBIN A1C 5.5 4.0-6.0 Jul 18, 2024 10:46 AM [facility] CBC BLOOD Specimen Type: BLOOD No comment entered. Ordering Provider: RAGINI BLANK Report Released Date/Time: Jul 18, 2024 10:39 AM Reporting Lab: [facility] [id number] Performing Lab: [facility] [id number] WBC 6.2 4.0-11.0 RBC 5.01 4.60-6.20 HGB 15.2 g/dL 13.5-17.9 HCT 44.8 41.0-54.0 MCV 89.4 fL 80.0-100.0 MCH 30.3 pg 27.0-33.0 MCHC 33.9 g/dL 32.0-37.5 PLT 234 150-400 MPV 10.1 fL 9.1-13.0 RDW 12.4 11.5-14.5 Jul 18, 2024 10:46 AM [facility] COMPREHENSIVE METABOLIC PANEL+MG PLASMA Specimen Type: PLASMA No comment entered. Ordering Provider: RAGINI BLANK Report Released Date/Time: Jul 18, 2024 10:39 AM Reporting Lab: [facility] [phone] Performing Lab: [facility] [id number] CREATININE 0.9 mg/dL 0.7-1.2 UREA NITROGEN 11 mg/dL 8-26 GLUCOSE 130 mg/dL H 70-100 SODIUM 143 mmol/L 136-145 POTASSIUM 4.2 mmol/L 3.5-5.1 CHLORIDE 109 mmol/L H 98-107 CO2 24 mmol/L 22-29 CALCIUM 9.5 mg/dL 8.4-10.2 PROTEIN,TOTAL 7.1 g/dL 6.4-8.3 ALBUMIN 4.2 g/dL 3.5-5.0 BILIRUBIN, TOTAL 0.3 mg/dL 0.2-1.2 MAGNESIUM 1.8 mg/dL 1.6-2.6 ANION GAP 10 mmol/L 5-15 ALKALINE PHOSPHATASE 52 U/L 40-150 ALT/SGPT 12 U/L <44 AST/SGOT 18 U/L 11-34 .CREAT EGFR(CKD-EPI) >90 >60 Social History: Smoking Status (Most current) and Tobacco Use (All prior to encounter date) This section includes the most current, and the historical, smoking and tobacco- related health factors from the [place] facility where the Encounter took place. Current Smoking Status This section includes the most current smoking, or tobacco-related health factor, from the [place] facility where the Encounter took place. Date/Time Current Smoking Status Comment Remington rogers May 17, 2024 02:30 PM VA-TOBACCO USE EVERY DAY CIGARET [facility] Tobacco Use History This section includes a history of the smoking, or tobacco-related health factors, that were collected on or before the date of the Encounter. The data comes from the [place] facility where the Encounter took place. Date/Time Smoking Status/Tobacco Use Comment F serafin May 17, 2024 02:30 PM VA-TOBACCO USE EVERY DAY CIGARET [facility] November 01, 2018 12:58 PM VA-TOBACCO DOESNT USE WI 30 MIN WAKEUP [facility] November 01, 2018 12:58 PM VA-TOBACCO USE 5 TO 15 YEARS [facility] November 01, 2018 12:58 PM VA-TOBACCO USE ADVICE [facility] November 01, 2018 12:58 PM VA-TOBACCO USE MANAGER OF PLANNING YES [facility] November 01, 2018 12:58 PM VA-TOBACCO USE MED YES [facility] November 01, 2018 12:58 PM VA-TOBACCO USER EVERY DAY [facility] Aug 05, 2017 02:28 PM CURRENT TOBACCO USER [facility] Jun 10, 2016 02:39 PM INPT TOBACCO COUNSELING [facility] Jun 10, 2016 02:39 PM INPT TOBACCO USER Johana [facility] Jun 10, 2016 08:23 AM CURRENT TOBACCO USER [facility] Advance Directives: All historical and current Section Date Range: From patient's date of to the date document was created. This section includes ALL of a patient's completed or amended [place] Advance and Rescinded Directives. The entries below indicate that a directive exists for the patient, but an actual copy is not included with this document. The data comes from all [place] facilities. Date Advance Directives Provider Source Mar 31, 2023 ADVANCE DIRECTIVE DISCUSSION APOORVA KHANNA Dior [facility] Nov 30, 2022 ADVANCE DIRECTIVE DISCUSSION ALEXANDER CONNOR [facility] Jun 17, 2016 ADVANCE DIRECTIVE DISCUSSION CAROLIN FIGUEROA AE [facility] Jun 10, 2016 CLINICAL WARNING NAIDA BRADSHAW [facility] October 07, 2015 ADVANCE DIRECTIVE DISCUSSION Lemuel URRUTIA [facility] Encounter Notes: All associated encounter notes This section contains the clinical notes associated to the Encounter. Date/Time Encounter Note(s) Provider Source Jun 30, 2024 02:08 PM MENTAL HEALTH ADMINISTRATIVE NOTE: LOCAL TITLE: MH JUSTICE PROGRAMS STANDARD TITLE: MENTAL HEALTH ADMINISTRATIVE NOTE DATE OF NOTE: JUN 30, 2024@14:08 ENTRY DATE: JUN 30, 2024@14:09:01 AUTHOR: [facility] COSIGNER: URGENCY: STATUS: COMPLETED [place] Justice Outreach (VJO) Program Provider: JUAN Arellano Scope: Case Management Dx: Legal Circumstances 65.3 ICD-10 Length: 15 minutes [facility] Outreach- [address] [place] [address]: 06/30/2024 Current status: Salvador presented to the [facility] for VTC. Ag Service Manager participated in staffing before court. Salvador was given an opportunity to review his application for phase advancement in VTC today. Gideon reviewed his barriers, supports, and goals. Gideon reviewed recent activity, including beginning school two weeks ago. Salvador will be beginning community care with [facility] as well as through his school until his first appointment next month. Salvador was granted phase advancement today. denied any immediate needs with which VTC or VJO can assist. Gideon was encouraged to maintain compliance with VTC, probation, and VJO. Next court date: 07/14/2024 /samuel/ JUAN Arellano STATUARY PAINTER Signed: 06/30/2024 14:14 [facility]
--- OUTSIDE RECORDS SUMMARY | 2024-07-14 08:31 | XMS_ITS | Encounter Summary ---
Author Name [facility] of [place] [place] Organization [facility] [place] Address [address] [place] [address] Care Team Providers Care Floor Coverings Installer Name Role Phone RAGINI BLANK Primary Care [...] section includes the information on record at [place] for the Encounter. Date/Time Encounter Type Encounter Description Reason Provider Source Jul 14, 2024 01:31 PM CASE MANAGEMENT [facility] OUTREACH ICD-10-CM F10.129 Alcohol abuse with intoxication, unspecified [facility] Encounter Template Text not used by [place] Assessments - Encounter Diagnoses This section includes the primary and secondary diagnoses documented for the Encounter. Date/Time Primary/Secondary Diagnosis Diagnosis Name Provider Source Jul 14, 2024 02:47 PM PRIMARY Alcohol abuse with intoxication, unspecified [facility]IE RODRIGUEZ [facility] Jul 14, 2024 02:47 PM SECONDARY Other recurrent depressive disorders SOPHIE RODRIGUEZ [facility] Jul 14, 2024 02:47 PM SECONDARY Post-traumatic stress disorder, unspecified SOPHIE RODRIGUEZ [facility] Jul 14, 2024 02:47 PM SECONDARY Problems related to other legal circumstances SOPHIE RODRIGUEZ [facility] Plan of Treatment: Future Appointments (+ 6 months) and Future Tests (+/- 45 days) The Plan of Treatment section includes future care activities for the patient [facility] [place] [facility] This section includes future appointments and future orders which are active, pending or scheduled. Future Appointments This section includes appointments that were scheduled to occur 6 months from the date of the Encounter, up to a maximum of 20 appointments. The data comes from all [facility]. Appointment Date/Time Appointment Type Appointme nt Facility Name Jul 17, 2024 11:00 AM AMBULATORY - NONE [facility] Jul 18, 2024 07:01 AM AMBULATORY - NONE [facility] Jul 18, 2024 10:30 AM AMBULATORY - MEDICINE [facility] Aug 21, 2024 02:23 PM AMBULATORY - NONE [facility] Active, Pending, and Scheduled Orders This section includes a listing of several types of active, pending, and scheduled orders, including clinic medications orders, diagnostic test orders, procedure orders and consult orders; where the start date of the order is 45 days before the date of the Encounter or 45 days after the date of theEncounter. The data comes from all [facility]. Test Date/Time Test Type Test Details Facility Name Jul 13, 2024 04:22 PM Consult Order COMMUNITY CARE-TREATMENT RESISTANT DEPRESSION Cons Water Supply Engineer's Choice [facility] Lab Results: +/- 30 days of the encounter This section includes the Chemistry and Hematology Lab Results on record with [place] for the patient. Radiology Reports and Pathology Reports are provided separately, in subsequent sections. Lab Results This section contains the Chemistry/Hematology Results that were resulted 30 days before or 30 daysafter the date of the Encounter. Date/Time Source Result Type Result - Unit Interpretation Reference Range Specimen Type Comment Jul 18, 2024 10:46 AM [facility] TSH W/REFLEX TO FREE T4 PLASMA Specimen Type: PLASMA No comment entered. Ordering Provider: RAGINI BLANK Report Released Date/Time: Jul 18, 2024 10:39 AM Reporting Lab: [facility] [id number] Performing Lab: [facility] [id number] TSH 1.88 u[IU]/mL 0.35-4.94 Jul 18, 2024 10:46 AM [facility] HEMOGLOBIN A1C BLOOD Specimen Type: B LOOD [...] Jul 18, 2024 10:39 AM Reporting Lab: [facility] [id number] Performing Lab: [facility] [id number] HEMOGLOBIN A1C 5.5 4.0-6.0 Jul 18, 2024 10:46 AM [facility] CALCIUM PLASMA Specimen Type: PLASMA No comment entered. Ordering Provider: RAGINI BLANK Report Released Date/Time: Jul 18, 2024 10:39 AM Reporting Lab: [facility] [id number] Performing Lab: [facility] [id number] CALCIUM 9.5 mg/dL 8.4-10.2 Jul 18, 2024 10:46 AM [facility] CBC BLOOD Specimen Type: BLOOD No comment entered. Ordering Provider: RAGINI BLANK Report Released Date/Time: Jul 18, 2024 10:39 AM Reporting Lab: [facility] [id number] Performing Lab: [facility] [id number] WBC 6.2 4.0-11.0 RBC 5.01 4.60-6.20 HGB 15.2 g/dL 13.5-17.9 HCT 44.8 41.0-54.0 MCV 89.4 fL 80.0-100.0 MCH 30.3 pg 27.0-33.0 MCHC 33.9 g/dL 32.0-37.5 PLT 234 150-400 MPV 10.1 fL 9.1-13.0 RDW 12.4 11.5-14.5 Jul 18, 2024 10:46 AM [facility] COMPREHENSIVE METABOLIC PANEL+MG PLASMA Specimen Type: PLASMA No comment entered. Ordering Provider: RAGINI BLANK Report Released Date/Time: Jul 18, 2024 10:39 AM Reporting Lab: [facility] [phone] Performing Lab: [facility] [phone] CREATININE 0.9 mg/dL 0.7-1.2 UREA NITROGEN 11 [...] and tobacco- related health factors from the [place] facility where the Encounter took place. Current Smoking Status This section includes the most current smoking, or tobacco-related health factor, from the [place] facility where the Encounter took place. Date/Time Current Smoking Status Comment Remington rogers May 17, 2024 02:30 PM VA-TOBACCO USE EVERY DAY CIGARET [facility] Tobacco Use History This section includes a history of the smoking, or tobacco-related health factors, that were collected on or before the date of the Encounter. The data comes from the [place] facility where the Encounter took place. Date/Time Smoking Status/Tobacco Use Comment Gigi betancourt May 17, 2024 02:30 PM VA-TOBACCO USE EVERY DAY CIGARET [facility] November 01, 2018 12:58 PM VA-TOBACCO DOESNT USE WI 30 MIN WAKEUP [facility] November 01, 2018 12:58 PM VA-TOBACCO USE 5 TO 15 YEARS [facility] November 01, 2018 12:58 PM VA-TOBACCO USE ADVICE [facility] November 01, 2018 12:58 PM VA-TOBACCO USE EXTRACTOR OPERATOR SOLVENT PROCESS YES [facility] November 01, 2018 12:58 PM VA-TOBACCO USE MED YES [facility] November 01, 2018 12:58 PM VA-TOBACCO USER EVERY DAY [facility] Aug 05, 2017 02:28 PM CURRENT TOBACCO USER [facility] Jun 10, 2016 02:39 PM INPT TOBACCO COUNSELING [facility] Jun 10, 2016 02:39 PM INPT TOBACCO USER Johana ROSARIO [facility] Jun 10, 2016 08:23 AM CURRENT TOBACCO USER [facility] Advance Directives: All historical and current Section Date Range: From patient's date of to the date document was created. This section includes ALL of a patient's completed or amended [place] Advance and Rescinded Directives. The entries below indicate that a directive exists for the patient, but an actual copy is not included with this document. The data comes from all [place] facilities. Date Advance Directives Provider Source Mar 31, 2023 ADVANCE DIRECTIVE DISCUSSION APOORVA KHANNA [facility] Nov 30, 2022 ADVANCE DIRECTIVE DISCUSSION ALEXANDER CONNOR [facility] Jun 17, 2016 ADVANCE DIRECTIVE DISCUSSION CAROLIN FIGUEROA AE [facility] Jun 10, 2016 CLINICAL WARNING NAIDA BRADSHAW [facility] October 07, 2015 ADVANCE DIRECTIVE DISCUSSION Lemuel URRUTIA [facility] Encounter Notes: All associated encounter notes This section contains the clinical notes associated to the Encounter. Date/Time Encounter Note(s) Provider Source Jul 14, 2024 01:31 PM MENTAL HEALTH ADMINISTRATIVE NOTE: LOCAL TITLE: MH JUSTICE PROGRAMS STANDARD TITLE: MENTAL HEALTH ADMINISTRATIVE NOTE DATE OF NOTE: JUL 14, 2024@13:31 ENTRY DATE: JUL 14, 2024@13:31:41 AUTHOR: [facility] COSIGNER: URGENCY: STATUS: COMPLETED Justice Outreach (VJO) Program Provider: JUAN Arellano Scope: Case Management Dx: Legal Circumstances 65.3 ICD-10 Length: 15 minutes [facility] Justice Outreach- [facility] [address] Date of Court: 07/14/2024 Current status: presented to the [facility] for VTC. Accounts Receivable Representative participated in staffing before court. Small Battery Plate Assembler engaged [place] in review of overall well-being and clinical services since last court session. reported that he will meet with his new therapist next week and has been attending weekly SMART recovery groups. Fruitland reported that he has been focusing on school and maintaining sobriety. Small Battery Plate Assembler praised [place] for doing well in both areas lately. Accounts Receivable Representative was asked to provide feedback about [place]'s clinical programming during court, which was provided. [place] denied any immediate needs with which VTC or VJO can assist. was encouraged to maintain compliance with VTC, probation, and VJO. Next court date: 07/28/2024 /samuel/ JUAN Arellano BASEBALL PLAYER Signed: 07/14/2024 14:47 [facility]
--- OUTSIDE RECORDS SUMMARY | 2024-07-18 05:30 | XMS_ITS | Encounter Summary ---
Author Name [facility] Organization [facility] [place] Address [address] [place] [address] Care Team Providers Care Discharge Door Operator Name Role Phone DEBORA BLANK Primary Care Provider Unavailabl e Insurance [...] section includes the information on record at [place] for the Encounter. Date/Time Encounter Type Encounter Description Reason Provider Source Jul 18, 2024 10:30 AM OFFICE O/P EST HI 40 MIN PRIMARY CARE/MEDICINE ICD-10-CM Z00.00 Encntr for general adult medical exam w/o abnormal findings DEBORA BLANK Yani Encounter Template Text not used by [place] Assessments - Encounter Diagnoses This section includes the primary and secondary diagnoses documented for the Encounter. Date/Time Primary/Secondary Diagnosis Diagnosis Name Provider Source Jul 18, 2024 03:52 PM PRIMARY Encntr for general adult medical exam w/o abnormal findings DEBORA BLANK [facility] Jul 18, 2024 03:52 PM SECONDARY Alcohol abuse with intoxication, unspecified DEBORA BLANK [facility] Jul 18, 2024 03:52 PM SECONDARY Contact with and exposure to other hazardous substances DEBORA BLANK [facility] Jul 18, 2024 03:52 PM SECONDARY Hyperglycemia, unspecified DEBORA BLANKPEE [facility] Jul 18, 2024 03:52 PM SECONDARY Hyperlipidemia, unspecified DEBORA BLANK CB Jul 18, 2024 03:52 PM SECONDARY Post-traumatic stress disorder, unspecified DEBORA BLANKPEE OC Jul 18, 2024 03:52 PM SECONDARY Tobacco use DEBORA BLANK HILARIA NICOLE Plan of Treatment: Future Appointments (+ 6 months) and Future Tests (+/- 45 days) The Plan of Treatment section includes future care activities for the [facility] [place] [facility]. This section includes future appointments and future orders which are active, pending or scheduled. Future Appointments This section includes appointments that were scheduled to occur 6 months from the date of the Encounter, up to a maximum of 20 appointments. The data comes from all [place] treatment facilities. Appointment Date/Time Appointment Type Appointme nt Facility Name Aug 21, 2024 02:23 PM AMBULATORY - NONE [facility] Active, Pending, and Scheduled Orders This section includes a listing of several types of active, pending, and scheduled orders, including clinic medications orders, diagnostic test orders, procedure orders and consult orders; where the start date of the order is 45 days before the date of the Encounter or 45 days after the date of theEncounter. The data comes from all [facility]. Test Date/Time Test Type Test Details Facility Name Jul 13, 2024 04:22 PM Consult Order COMMUNITY CARE-TREATMENT RESISTANT DEPRESSION Cons Sustainability Executive Director's Choice [facility] Lab Results: +/- 30 days of the encounter This section includes the Chemistry and Hematology Lab Results on record with [place] for the patient. Radiology Reports and Pathology Reports are provided separately, in subsequent sections. Lab Results This section contains the Chemistry/Hematology Results that were resulted 30 days before or 30 daysafter the date of the Encounter. Date/Time Source Result Type Result - Unit Interpretation Reference Range Specimen Type Comment Jul 18, 2024 10:46 AM HILARIA NICOLE HEMOGLOBIN A1C BLOOD Specimen Type: BLOOD Comment: Values obtained from A1C measurements can vary. For typical A1C assays, a reported value of 7.0 could actually be between 6.7 and 7.3 if measured by a reference method. A reported value of 9.0 could actually be between 8.7 and 9.3. Ref: http://www.ngsp. org/CAPdata.asp Ordering Provider: DEBORA BLANK Report Released Date/Time: Jul 18, 2024 10:39 AM Reporting Lab: [facility] [id number] Performing Lab: [place] [phone] HEMOGLOBIN A1C 5.5 4.0-6.0 Jul 18, 2024 10:46 AM [facility] CALCIUM PLASMA Specimen Type: PLASMA No comment entered. Ordering Provider: DEBORA BLANK Report Released Date/Time: Jul 18, 2024 10:39 AM Reporting Lab: [facility] [phone] Performing Lab: [place] [phone] CALCIUM 9.5 mg/dL 8.4-10.2 Jul 18, 2024 10:46 AM [facility] TSH W/REFLEX TO FREE T4 PLASMA Specime n Type: PLASMA No comment entered. Ordering Provider: DEBORA BLANK Report Released Date/Time: Jul 18, 2024 10:39 AM Reporting Lab: [facility] [id number] Performing Lab: [facility] [id number] TSH 1.88 u[IU]/mL 0.35-4.94 Jul 18, 2024 10:46 AM [facility] CBC BLOOD Specimen Type: BLOOD No comment entered. Ordering Provider: DEBORA BLANK Report Released Date/Time: Jul 18, 2024 10:39 AM Reporting Lab: [facility] [phone] Performing Lab: [facility] [phone] WBC 6.2 4.0-11.0 RBC 5.01 4.60-6.20 HGB 15.2 g/dL 13.5-17.9 HCT 44.8 41.0-54.0 MCV 89.4 fL 80.0-100.0 MCH 30.3 pg 27.0-33.0 MCHC 33.9 g/dL 32.0-37.5 PLT 234 150-400 MPV 10.1 fL 9.1-13.0 RDW 12.4 11.5-14.5 Jul 18, 2024 10:46 AM HILARIA NICOLE COMPREHENSIVE METABOLIC PANEL+MG PLASMA Specimen Type: PLASMA No comment entered. Ordering Provider: DEBORA BLANK Report Released Date/Time: Jul 18, 2024 10:39 AM Reporting Lab: [facility] [phone] Performing Lab: [facility] [phone] CREATININE 0.9 mg/dL 0.7-1.2 UREA NITROGEN 11 [...] 18 U/L 11-34 .CREAT EGFR(CKD-EPI) >90 >60 Vital Signs: All taken on the encounter date This section contains inpatient and outpatient Vital Signs collected on the date of the Encounter. Date/Time Temperature Pulse Blood Pressure Respiratory Rate SP02 Pain Height Weight Body Mass Index Source Jul 18, 2024 10:22 AM 96.7 94 122/83 14 96 0 72.441 215.5 29 KEM NICOLE Social History: Smoking Status (Most current) and Tobacco Use (All prior to encounter date) This section includes the most current, and the historical, smoking and tobacco- related health factors from the [place] facility where the Encounter took place. Current Smoking Status This section includes the most current smoking, or tobacco-related health factor, from the [place] facility where the Encounter took place. Date/Time Current Smoking Status Comment Remington rogers Jul 18, 2024 10:30 AM VA-TOBACCO SCREEN FOLLOW-UP HILARIA ROCHE Tobacco Use History This section includes a history of the smoking, or tobacco-related health factors, that were collected on or before the date of the Encounter. The data comes from the [place] facility where the Encounter took place. 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 This section includes ALL of a patient's completed or amended [place] Advance and Rescinded Directives. The entries below indicate that a directive exists for the patient, but an actual copy is not included with this document. The data comes from all [place] facilities. Date Advance Directives Provider Source Mar 31, 2023 ADVANCE DIRECTIVE DISCUSSION APOORVA KHANNA [facility] Nov 30, 2022 ADVANCE DIRECTIVE DISCUSSION ALEXANDER CONNOR [facility] Jun 17, 2016 ADVANCE DIRECTIVE DISCUSSION CAROLIN FIGUEROA AE [facility] Jun 10, 2016 CLINICAL WARNING NAIDA BRADSHAW [facility] October 07, 2015 ADVANCE DIRECTIVE DISCUSSION Lemuel [facility] Encounter Notes: All associated encounter notes This section contains the clinical notes associated to the Encounter. Date/Time Encounter Note(s) Provider Source Jul 23, 2024 10:24 PM LETTERS: LOCAL TITLE: FOLLOW UP RESULTS LETTER STANDARD TITLE: LETTERS DATE OF NOTE: JUL 23, 2024@22:24 ENTRY DATE: JUL 23, 2024@22:24:43 AUTHOR: DEBORA BLANK EXP COSIGNER: URGENCY: STATUS: COMPLETED [facility] [address] [place] [address] Jul SHAQUILLE ALARCON [address] [place] [id number] Dear : You should be receiving another letter with the results of the tests you had done through the [facility]. I have reviewed the results and they looked fine which is very reassuring. If you have any further questions or problems, please contact the call center at [phone] to speak with a nurse or leave me a message. Sincerely, DEBORA BLANK DNP,FINE GRADER,ARDMS DEBORA BLANK CB Jul 18, 2024 10:31 AM H & P NOTE: LOCAL TITLE: [facility] ANNUAL VISIT STANDARD TITLE: H & P NOTE DATE OF NOTE: JUL 18, 2024@10:31 ENTRY DATE: JUL 18, 2024@10:31:23 AUTHOR: DEBORA BLANK EXP COSIGNER: URGENCY: STATUS: COMPLETED Today's Nurse check-in note reviewed. seen in the clinic today. Followed all current PPE guidelines during the visit. Preferred name: Shaquille Patient brought in outside medical records and have been reviewed: In JL V *JLV = active Chief complaint: An established patient here transferring care from [facility] and here for Wellness and preventive medicine visit. The patient has no concerns today. History of Present Illness: 34-year-old male with past medical history of Alcohol use disorder (quit May 2024), withdrawal seizure in 2014, PTSD, tobacco use disorder, depression, NAFLD, HLD. # AUD, PTSD, depression -Established with mental health and now overall doing well -Multiple hospitalization due to MH AN AUD, completed RRTP program in the past -He quit alcohol since May 2024 -Currently taking Adderall 30 mg twice daily, disulfiram to 50 mg daily gabapentin 600 mg 3 times daily and ketamine injection every 2 weeks, trazodone 100 mg at bedtime -Denies any SI HI today -PHQ-9 score today for - # Thrombocytopenia, plt May -Suspect this is related to alcohol toxicity # Insomnia -Taking trazodone 100 mg at bedtime with good effects # Elevated AST ALT -This could be related to his previous alcohol use # Current smoker -Refused smoking cessation, provided cessation resources -Today offers no concerns Review of Systems: Denies chest pain, shortness of breath, recent significant. weight changes, rash, bowel or bladder changes, new joint pain or swelling, headaches, lightheadedness, vision changes, new numbness or tingling or weakness. Remainder of the ROS is negative, except as above. Depression Monitoring (PHQ-9): PHQ-9 A PHQ-9 screen was performed. The score was 4. 1. Little interest or pleasure in doing things Several days 2. Feeling down, depressed, or hopeless Several days 3. Trouble falling or staying asleep, or sleeping too much Not at all 4. Feeling tired or having little energy Several days 5. Poor appetite or overeating Not at all 6. Feeling bad about yourself or that you are a failure or have let yourself or your family down Not at all 7. Trouble concentrating on things, such as reading the newspaper or watching television Several days 8. Moving or speaking so slowly that other people could have noticed. Or the opposite being so fidgety or restless that you have been moving around a lot more than usual Not at all 9. Thoughts that you would be better off or of hurting yourself in some way Not at all 10. If you checked off any problems, how DIFFICULT have these problems made it for you to do your work, take care of things at home or get along with other people? Not difficult at all [place]'s PHQ9 score IMPROVED from the most recent score Toxic Exposure Screening Follow-Up: Exposure Concern(s): 07/18/2024 Airborne Hazards/Open Burn Pit - Toxic Exposure Concern Follow-up Question(s): 07/18/2024 No Questions - Toxic Exposure Concern /caregiver has no health or medical concerns related to their concern of environmental exposure. The following connections were provided to the /caregiver: [employer] (VBA) for Benefits/claims: [place] Hand Rigger/Organization (VSO) https://www.macvso.org/find- a-cvso.html Medication Reconciliation: Education Evaluations *Was medication education provided for NEW medications or CHANGES to medications? (including medication name, dose, route, reason for use, and potential side effects). No new medications or medication changes during this encounter. TERATOGENIC MED & CONTRACEPTION REVIEW (Optional)... === MEDICATION RECONCILIATION === Review Done: The medication list shown below was verified for accuracy and reviewed with the patient/caregiver. It includes all pending medications/active medications/all medications or discontinued within the last 90 days/all remote medications and non-VA medications. If a given category (i.e. remote meds) is not shown, that means that a patient doesn't have a medication(s) in that category. Allergies listed below were also reviewed/updated for accuracy. Allergies/ADR from DoD may not display in CPRS. Use JLV MRT5 - Allergies/ADRs FACILITY ALLERGY/ADR -------- [facility] No Known Allergies [place] Barbie [facility] NO KNOWN ALLERGIES [facility] NO KNOWN ALLERGIES Active and Recently Outpatient Medications (including Supplies): Issue Date Status Last Fill Active Outpatient Medications Refills Expiration 1) AMPHETAMINE/DEXTROAMPHET 30MG SA CAP Qty: 56 ACTIVE Issue: 06/27/24 for 28 days Sig: TAKE ONE CAPSULE BY MOUTH Refills: 0 Last : 07/04/24 TWICE A DAY Expr : 07/27/24 Indication: FOR ATTENTION 2) DISULFIRAM 250MG TAB Qty: 90 for 90 days ACTIVE Issue: 05/17/24 Sig: TAKE ONE TABLET BY MOUTH EVERY DAY Refills: 1 Last : 05/17/24 Indication: FOR SOBRIETY Expr : 05/18/25 3) FOLIC ACID 1MG TAB Qty: 30 for 30 days Sig: ACTIVE Issue: 03/07/24 TAKE ONE TABLET BY MOUTH EVERY DAY Refills: 0 Last : 04/03/24 Indication: FOR FOLIC ACID SUPPLEMENT Expr : 03/08/25 4) IBUPROFEN 200MG TAB Qty: 100 for 50 days ACTIVE Issue: 06/27/24 Sig: TAKE ONE TABLET BY MOUTH TWICE A DAY Refills: 0 Last : 06/27/24 NEEDED Expr : 08/16/24 Indication: FOR PAIN 5) MULTIVITAMIN/MINERALS SENIOR FORMULA TAB ACTIVE Issue: 12/17/23 Qty: 60 for 60 days Sig: TAKE 1 TABLET BY Refills: 2 Last : 12/20/23 MOUTH EVERY DAY Expr : 12/17/24 Indication: FOR SUPPLEMENT 6) TRAZODONE HCL 100MG TAB Qty: 90 for 90 days ACTIVE Issue: 03/09/24 Sig: TAKE ONE TABLET BY MOUTH AT BEDTIME Refills: 1 Last : 03/13/24 NEEDED Expr : 03/10/25 Indication: FOR SLEEP Issue Date Status Last Fill Inactive Outpatient Medications Refills Expiration 1) AMPHETAMINE/DEXTROAMPHET 30MG SA CAP Qty: 56 DISCONTINUED Issue: 06/01/24 for 28 days Sig: TAKE ONE CAPSULE BY MOUTH Refills: 0 Last : 06/06/24 TWICE A DAY Expr : 07/01/24 Indication: FOR ATTENTION 2) DIAZEPAM 5MG TAB Qty: 4 for 2 days Sig: TAKE Issue: 03/07/24 ONE TABLET BY MOUTH TWICE A DAY FOR ALCOHOL Refills: 0 Last : 03/07/24 WITHDRAWAL/ANXIETY Expr : 04/06/24 Indication: FOR ANXIETY 3) GABAPENTIN 300MG CAP Qty: 18 for 4 days Sig: Issue: 05/11/24 TAKE TWO CAPSULES THREE TIMES A DAY FOR 2 Refills: 0 Last : 05/11/24 DAYS, THEN TAKE ONE CAPSULE BY MOUTH THREE Expr : 06/10/24 TIMES A DAY FOR 2 DAYS Indication: FOR ALCOHOL WITHDRAWAL 4) GABAPENTIN 600MG TAB Qty: 6 for 2 days Sig: DISCONTINUED Issue: 05/11/24 TAKE 1 TABLET BY MOUTH THREE TIMES A DAY FOR Refills: 0 Last : 05/11/24 2 DAYS Expr : 06/10/24 Indication: ALCOHOL WITHDRAWAL 5) THIAMINE 100MG TAB Qty: 100 for 90 days Sig: Issue: 03/07/24 TAKE ONE TABLET BY MOUTH EVERY DAY Refills: 0 Last : 03/07/24 Indication: FOR SUPPLEMENT Expr : 06/05/24 6) TRAZODONE HCL 100MG TAB Qty: 90 for 90 days DISCONTINUED Issue: 09/13/23 Sig: TAKE ONE TABLET BY MOUTH AT BEDTIME Refills: 0 Last : 12/16/23 NEEDED Expr : 09/13/24 Indication: FOR SLEEP Start Date Active Non-VA Medications Status Stop Date 1) Non-VA KETAMINE INJ,SOLN Sig: IV ACTIVE 13 Total Medications Physical Exam: Vitals: BP: 122/83 (07/18/2024 10:22) P: 94 (07/18/2024 10:) R: 14 (07/18/2024 10:) T: 96.7 F [35.9 C] (07/18/2024 10:) WT: 215.5 lb [97.75 kg] (07/18/2024 10:) BMI: 28.9 Pain: 0 (07/18/2024 10:22) O2 Sat: 96% (07/18/2024 10:) GENERAL: Alert and oriented x 3, No acute distress, Well-nourished, dressed and groomed HEENT: Normocephalic, atraumatic, ear canals clear, TMs normal, OP clear, neck supple without mass, no adenopathy or thyromegaly LUNGS: Clear to auscultation bilaterally, No accessory muscle use no wheezes, rhonchi or rales CV: RRR without murmur, rub or gallop GI: Abdomen non distended, soft, non-tender, normal bowel sounds in all quadrants, no palpable mass SKIN: Warm and moist, no rash or erythema MSK: No joint swelling, ambulates without difficulty EXTREMITIES: No edema, no swelling NEUROLOGIC: No focal neurological deficits, CN II-XII grossly intact, but not individually tested PSYCHIATRIC: Cooperative, Good eye contact,Appropriate mood and affect Assessment/Plan: Wellness/screening visit completed. Counseling and education provided today includes proper nutrition and health habits, fall prevention, and for those labs and consults ordered today #Annual exam - meds: reviewed, updated and renewed - the ACTIVE PROBLEM LIST above is considered to be the Past Medical History for the purposes of this note; it was reviewed at the time of this visit and no changes unless otherwise noted above #Health Maintenance/Wellness -Exercise: 25-30 min cardio with light weight lifting 5-6x/week -Diet: well balanced -Dental: no concerns -Hearing: no concerns -Eye Exam: no concerns Active problems - Computerized Problem List is the source for the following: # AUD, PTSD, depression -Overall stable -Continue follow-up with mental health -Continue current medications # Thrombocytopenia, plt May -CBC, CMP, lipid panel, A1c ordered today # Insomnia -Continue taking trazodone 100 mg at bedtime with good effects # Elevated AST ALT -CMP ordered today # Current smoker -Refused smoking cessation Total time personally spent by the provider on encounter was ___35_ minutes. I will follow up with the on labs. If all is well we can see back in a year. [place] understands and agrees to the plan. Follow up as discussed. Sooner if questions or concerns. Disclaimer: This note consists of symbols derived from keyboarding, dictation and/or voice recognition software. As a result, there may be errors in the script that have gone undetected. Please consider this when interpreting information found in this chart. Tobacco Use Follow-Up: Patient was advised to stop smoking and/or using other tobacco products. Advised patient that a combination of behavioral counseling and FDA-approved cessation medications is the most effective way to ensure their success in stopping to smoke and/or using other tobacco products. The patient was not interested in additional information about behavioral counseling and other support strategies discussed. Informed patient that medications can help with cravings and withdrawal symptoms, and they greatly increase the chances of successfully stopping your tobacco use. The patient was not interested in a prescription for tobacco cessation medications. /samuel/ DEBORA BLANK DNP,FINE GRADER,ARDMS Signed: 07/18/2024 15:52 [facility] BLANK [facility] Jul 18, 2024 10:23 AM PRIMARY CARE NURSI DYLON NOTE: LOCAL TITLE: [facility] NURSING PROGRESS NOTE STANDARD TITLE: PRIMARY CARE NURSING NOTE DATE OF NOTE: JUL 18, 2024@10:23 ENTRY DATE: JUL 18, 2024@10:23:43 AUTHOR: TEE RIVERS EXP COSIGNER: URGENCY: STATUS: COMPLETED TYPE OF VISIT: Appointment Check In Type of appointment: In-person appointment REASON FOR VISIT: Annual [facility] ALLERGIES: Patient has answered NKA VITAL SIGNS: Blood Pressure: 122/83 (07/18/2024 10:22) Pulse: 94 (07/18/2024 10:22) Respiration: 14 (07/18/2024 10:22) Temperature: 96.7 F [35.9 C] (07/18/2024 10:22) Weight: 215.5 lb [97.75 kg] (07/18/2024 10:22) Height: 72.441 in [184.0 cm] (07/18/2024 10:22) BMI: 28.9 O2 Sat: 96% (07/18/2024 10:22) Pain: 0 (07/18/2024 10:22) MEDICATION Active Outpatient Medications (including Supplies): AMPHETAMINE/DEXTROAMPHET 30MG SA CAP TAKE ONE CAPSULE BY ACTIVE MOUTH TWICE A DAY Indication: FOR ATTENTION DISULFIRAM 250MG TAB TAKE ONE TABLET BY MOUTH EVERY DAY ACTIVE Indication: FOR SOBRIETY FOLIC ACID 1MG TAB TAKE ONE TABLET BY MOUTH EVERY DAY ACTIVE Indication: FOR FOLIC ACID SUPPLEMENT IBUPROFEN 200MG TAB TAKE ONE TABLET BY MOUTH TWICE A DAY ACTIVE NEEDED Indication: FOR PAIN MULTIVITAMIN/MINERALS SENIOR FORMULA TAB TAKE 1 TABLET BY ACTIVE MOUTH EVERY DAY Indication: FOR SUPPLEMENT TRAZODONE HCL 100MG TAB TAKE ONE TABLET BY MOUTH AT ACTIVE BEDTIME NEEDED Indication: FOR SLEEP Non-VA KETAMINE INJ,SOLN IV ACTIVE 7 Total Medications Toxic Exposure Screening: The [place]/caregiver was asked if they believe the experienced any toxic exposure(s), such as Airborne Hazards and Open Burn Pit, [place] War related exposures, Agent [place], Radiation, contaminated water at [place] or other such exposures, while serving in the [employer]. [place]/caregiver believes the [place] was exposed to the following while serving in the [employer]: Airborne Hazards and Open Burn Pit: /caregiver was made aware of educational resources that includes information on the Registry Program, presumptive conditions and how to file a claim. Printed information was offered and provided if desired. No questions at this time /caregiver was informed of local points of contact. Contact information for local resources: - Veterans Benefits for claims submission: Have the call or have them visit the following web address for online scheduling: [email or web address] - VA Healthcare Enrollment: [phone] ([phone]) - Find a Hand Rigger (VSO): Have the call 6-185-TRJVENI or look up their VSO at: https://www.[employer]ak Games[employer].org/find- a-cvso.html - [facility] Navigators: Kaitlynn Molina [facility] [phone] Toxic Exposure Screening Follow-Up reminder is needed. Name of person notified: Debora Blank NP COVID-19 Immunization: Refused Pfizer Monovalent COVID-19 vaccine Immunization: COVID-19 (PFIZER), MRNA, LNP-S, PF, LARRY-SUCROSE, 30 MCG/0.3 ML (AGES 12+ YEARS) Refusal Reason: PATIENT DECISION Patient refuses all immunization(s) in the COVID-19 group Date Documented: 07/18/24 10:31 Influenza Immunization: Deferral / Refusal The patient declines to receive the recommended dose of seasonal influenza vaccine. Immunization: INFLUENZA, UNSPECIFIED FORMULATION Refusal Reason: PATIENT DECISION Patient refuses all immunization(s) in the FLU group Date Documented: 07/18/24 10:31 Pneumococcal Conjugate Vaccine (PCV15/PCV20): Refuses PCV vaccine Immunization: PNEUMOCOCCAL CONJUGATE, UNSPECIFIED FORMULATION Refusal Reason: PATIENT DECISION Patient refuses all immunization(s) in the PneumoPCV group Date Documented: 07/18/24 10:31 Pt. is Primary at [place]. /samuel/ TEE RIVERS LPN Signed: 07/18/2024 10:31 TEE RIVERS [facility]
--- OUTSIDE RECORDS SUMMARY | 2024-08-25 08:35 | XMS_ITS | Encounter Summary ---
Author Name [facility] [place] [facility] [place] [facility] [place] Address [address] [place] [address] Care Team Providers Care Residential Substance Abuse Counselor Name Role Phone RAGINI BLANK Primary Care [...] section includes the information on record at [place] for the Encounter. Date/Time Encounter Type Encounter Description Reason Provider Source Aug 25, 2024 01:35 PM CASE MANAGEMENT [facility] ICD-10-CM F10.20 Alcohol dependence, uncomplicated SOPHIE RODRIGUEZ Yani Encounter Template Text not used by [place] Assessments - Encounter Diagnoses This section includes the primary and secondary diagnoses documented for the Encounter. Date/Time Primary/Secondary Diagnosis Diagnosis Name Provider Source Aug 25, 2024 02:11 PM PRIMARY Alcohol dependence, uncomplicated SOPHIE RODRIGUEZ [facility] Aug 25, 2024 02:11 PM SECONDARY Other recurrent depressive disorders SOPHIE RODRIGUEZ [facility] Aug 25, 2024 02:11 PM SECONDARY Post-traumatic stress disorder, unspecified SOPHIE RODRIGUEZ [facility] Aug 25, 2024 02:11 PM SECONDARY Problems related to other legal circumstances SOPHIE RODRIGUEZ [facility] Plan of Treatment: Future Appointments (+ 6 months) and Future Tests (+/- 45 days) The Plan of Treatment section includes [place] care [place] the [place] [facility] [place] [facility] This section includes future [...] of theEncounter. The data comes from all [place] treatment facilities. Test Date/Time Test Type Test Details Facility Name Jul 13, 2024 04:22 PM Consult Order COMMUNITY CARE-TREATMENT RESISTANT DEPRESSION Cons Thermospray Operator's Choice [facility] Social History: Smoking Status (Most current) and Tobacco Use (All prior to encounter date) This section includes the most current, and the historical, smoking and tobacco- related health factors from the [place] facility where the Encounter took place. Current Smoking Status This section includes the most current smoking, or tobacco-related health factor, from the [place] facility where the Encounter took place. Date/Time Current Smoking Status Comment Remington ity May 17, 2024 02:30 PM VA-TOBACCO USE EVERY DAY CIGARET [facility] Tobacco Use History This section includes a history of the smoking, or tobacco-related health factors, that were collected on or before the date of the Encounter. The data comes from the [place] facility where the Encounter took place. Date/Time Smoking Status/Tobacco Use Comment F actiera May 17, 2024 02:30 PM VA-TOBACCO USE EVERY DAY CIGARET [facility] November 01, 2018 12:58 PM VA-TOBACCO DOESNT USE WI 30 MIN WAKEUP [facility] November 01, 2018 12:58 PM VA-TOBACCO USE 5 TO 15 YEARS [facility] November 01, 2018 12:58 PM VA-TOBACCO USE ADVICE [facility] November 01, 2018 12:58 PM VA-TOBACCO USE STUNNER ANIMAL YES [facility] November 01, 2018 12:58 PM VA-TOBACCO USE MED YES [facility] November 01, 2018 12:58 PM VA-TOBACCO USER EVERY DAY [facility] Aug 05, 2017 02:28 PM CURRENT TOBACCO USER [facility] Jun 10, 2016 02:39 PM INPT TOBACCO COUNSELING [facility] Jun 10, 2016 02:39 PM INPT TOBACCO USER M MARLENE [facility] Jun 10, 2016 08:23 AM CURRENT TOBACCO USER [facility] Advance Directives: All historical and current Section Date Range: From patient's date of to the date document was created. This section includes ALL of a patient's completed or amended [place] Advance and Rescinded Directives. The entries below indicate that a directive exists for the patient, but an actual copy is not included with this document. The data comes from all [place] facilities. Date Advance Directives Provider Source Mar 31, 2023 ADVANCE DIRECTIVE DISCUSSION APOORVA KHANNA [facility] Nov 30, 2022 ADVANCE DIRECTIVE DISCUSSION ALEXANDER CONNOR [facility] Jun 17, 2016 ADVANCE DIRECTIVE DISCUSSION CAROLIN FIGUEROA SANA Lomeli [facility] Jun 10, 2016 CLINICAL WARNING AUGUSTINENAIDA JM [facility] October 07, 2015 ADVANCE DIRECTIVE DISCUSSION Lemuel URRUTIA [facility] Encounter Notes: All associated encounter notes This section contains the clinical notes associated to the Encounter. Date/Time Encounter Note(s) Provider Source Aug 25, 2024 01:35 PM MENTAL HEALTH ADMINISTRATIVE NOTE: LOCAL TITLE: MH JUSTICE PROGRAMS STANDARD TITLE: MENTAL HEALTH ADMINISTRATIVE NOTE DATE OF NOTE: AUG 25, 2024@13:35 ENTRY DATE: AUG 25, 2024@13:35:26 AUTHOR: NORTH RODRIGUEZ COSIGNER: URGENCY: STATUS: COMPLETED Justice Outreach (VJO) Program Provider: JUAN Arellano Scope: Case Management Dx: Legal Circumstances 65.3 ICD-10 Length: 15 minutes [facility] Justice Outreach- [facility] [address] Date of Court: 08/25/2024 Current status: Eminence presented to the [facility] for VTC. Bookbinder Chief participated in staffing before court and provided overview of 's clinical presentation and progress to VTC team. Bookbinder Chief met with before court and inquired about overall well-being. Wastewater Manager engaged Eminence in review of recent return to use of alcohol, after which he was hospitalized with internal bleeding. Wastewater Manager asked to consider what he might need clinically to abstain from substances in the future. Eminence indicated that he believes he has made progress with his therapist, though it does not target substance use. Wastewater Manager informed that he must be participating in programming that also addresses substance use disorder. attributed his substance use to his mental health. Wastewater Manager agreed, but reflected the cyclical nature of addiction. Wastewater Manager asked VJO and other team members to weigh in on additional clinical interventions that may be assigned to as a therapeutic adjustment. assigned Eminence to attend thirty sobriety support groups in thirty days, with progress to be monitored at next court session in two weeks. Wastewater Manager reminded that during court when he last resumed use, was told that he would likely be required to utilize an alcohol monitoring device, which was assigned today for thirty days. asked Eminence about his use of Antabuse, which reported he had not been taking because he ran out of the medication. Wastewater Manager strategized with Eminence on methods that he can use not to run out of medications. Eminence denied any immediate needs with which VTC or VJO can assist. Eminence was encouraged to maintain compliance with VTC, probation, and VJO. Next court date: 09/08/2024 /samuel/ JUAN Arellano TRANSPLANT CASE MANAGER Signed: 08/25/2024 14:11 NORTH RODRIGUEZ [facility]
--- OUTSIDE RECORDS SUMMARY | 2024-09-08 09:21 | XMS_ITS | Encounter Summary ---
Author Name [facility] [place] Address [address] [place] [id number] Care Team Providers Care Retail Store Manager Name Role Phone RAGINI BLANK Primary [...] Encounter Type Encounter Description Reason Provider Source Sep 08, 2024 02:21 PM CASE MANAGEMENT [facility] ICD-10-CM F10.129 Alcohol abuse with intoxication, unspecified SOPHIE RODRIGUEZ Yani Encounter Template Text not used by [place] Assessments - Encounter Diagnoses This section includes the primary and secondary diagnoses documented for the Encounter. Date/Time Primary/Secondary Diagnosis Diagnosis Name Provider Source Sep 08, 2024 02:27 PM PRIMARY Alcohol abuse with intoxication, unspecified SOPHIE RODRIGUEZ [facility] Sep 08, 2024 02:27 PM SECONDARY Post-traumatic stress disorder, unspecified SOPHIE RODRIGUEZ [facility] Sep 08, 2024 02:27 PM SECONDARY Problems related to other legal circumstances SOPHIE RODRIGUEZ [facility] Social History: Smoking Status (Most current) [...] 02:30 PM VA-TOBACCO USE EVERY DAY CIGARET [facility] Tobacco Use History This section includes a history of the smoking, or tobacco-related health factors, that were collected on or before the date of the Encounter. The data comes from the [place] facility where the Encounter took place. 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 This section includes ALL of a patient's completed or amended [place] Advance and Rescinded Directives. The entries below indicate that a directive exists for the patient, but an actual copy is not included with this document. The data comes from all [facility]. Date Advance Directives Provider Source Mar 31, 2023 ADVANCE DIRECTIVE DISCUSSION APOORVA KHANNA [facility] Nov 30, 2022 ADVANCE DIRECTIVE DISCUSSION ALEXANDER CONNOR [facility] Jun 17, 2016 ADVANCE DIRECTIVE DISCUSSION CAROLIN FIGUEROA AE [facility] Jun 10, 2016 CLINICAL WARNING NAIDA BRADSHAW [facility] October 07, 2015 ADVANCE DIRECTIVE DISCUSSION Lemuel [facility] Encounter Notes: All associated encounter notes This section contains the clinical notes associated to the Encounter. Date/Time Encounter Note(s) Provider Source Sep 08, 2024 02:21 PM MENTAL HEALTH ADMINISTRATIVE NOTE: LOCAL TITLE: MH JUSTICE PROGRAMS STANDARD TITLE: MENTAL HEALTH ADMINISTRATIVE NOTE DATE OF NOTE: SEP 08, 2024@14:21 ENTRY DATE: SEP 08, 2024@14:21:44 AUTHOR: NORTH RODRIGUEZ EXP COSIGNER: URGENCY: STATUS: COMPLETED [employer] Justice Outreach (VJO) Program Provider: JUAN Arellano Scope: Case Management Dx: Legal Circumstances 65.3 ICD-10 Length: 15 minutes [facility] Outreach- [facility] [address] Date of Court: 09/08/2024 Current status: presented to the [facility] for VTC. Milling Machine Tender participated in staffing before court and provided overview of 's clinical presentation and progress to VTC team. During court, Graphics Software Engineer engaged in review of overall well-being and recent activity. reported that he continues on his alcohol monitoring device and attending thirty meetings in thirty days. [employer] further reported that he has continued in classes and recently achieved 100% on one of his tests. 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 Salvador was asked to reflect on the benefits he has experienced with the treatment adjustments that were implemented at last court session (monitor and 30 in ). [employer] reported that he has maintained sobriety on the device and has experienced vacillating benefit from the support meetings. reported that historically he has needed to want to go to find value in it. reported that, though he does not always see value in it, his attitude is improving and it is bringing him back to baseline. Salvador was commended for his efforts recently. [employer] denied any immediate needs with which VTC or VJO can assist. was encouraged to maintain compliance with VTC, probation, and VJO. Next court date: 09/22/2024 /samuel/ JUAN Arellano AERONAUTICAL TEST ENGINEER Signed: 09/08/2024 14:27 NORTH RODRIGUEZ [facility]
--- OUTSIDE RECORDS SUMMARY | 2024-09-19 04:57 | XMS_ITS | Encounter Summary ---
Author Name [facility] [place] Address [address] [place] [address] Care Team Providers Care Dry Boss Name Role Phone ABHAY RAGINI Primary Care [...] Encounter Description Reason Pro vider Source Sep 19, 2024 09:57 AM Outpatient Encounter TELEPHONE IHE Encounter Template Text not used by [place] Social History: Smoking Status (Most current) and [...] PM VA-TOBACCO USE EVERY DAY CIGARET [facility] Tobacco Use History This section includes a history of the smoking, or tobacco-related health factors, that were collected on or before the date of the Encounter. The data comes from the [place] facility where the Encounter took place. Date/Time Smoking Status/Tobacco Use Comment F acility May 17, 2024 02:30 PM VA-TOBACCO USE EVERY DAY CIGARET [facility] November 01, 2018 12:58 PM VA-TOBACCO DOESNT USE WI 30 MIN WAKEUP [facility] November 01, 2018 12:58 PM VA-TOBACCO USE 5 TO 15 YEARS [facility] November 01, 2018 12:58 PM VA-TOBACCO USE ADVICE [facility] November 01, 2018 12:58 PM VA-TOBACCO USE NURSERY RN YES [facility] November 01, 2018 12:58 PM VA-TOBACCO USE MED YES [facility] November 01, 2018 12:58 PM VA-TOBACCO USER EVERY DAY [facility] Aug 05, 2017 02:28 PM CURRENT TOBACCO USER [facility] Jun 10, 2016 02:39 PM INPT TOBACCO COUNSELING [facility] Jun 10, 2016 02:39 PM INPT TOBACCO USER [facility] Jun 10, 2016 08:23 AM CURRENT TOBACCO USER [facility] Advance Directives: All historical and current Section Date Range: From patient's date of to the date document was created. This section includes ALL of a patient's completed or amended [place] Advance and Rescinded Directives. The entries below indicate that a directive exists for the patient, but an actual copy is not included with this document. The data comes from all [place] facilities. Date Advance Directives Provider Source Mar 31, 2023 ADVANCE DIRECTIVE DISCUSSION APOORVA KHANNA [facility] Nov 30, 2022 ADVANCE DIRECTIVE DISCUSSION ALEXANDER CONNOR [facility] Jun 17, 2016 ADVANCE DIRECTIVE DISCUSSION CAROLIN FIGUEROA AE [facility] Jun 10, 2016 CLINICAL WARNING NAIDA BRADSHAW [facility] October 07, 2015 ADVANCE DIRECTIVE DISCUSSION Lemuel URRUTIA [facility] Encounter Notes: All associated encounter notes This section contains the clinical notes associated to the Encounter. Date/Time Encounter Note(s) Provider Source Sep 19, 2024 09:57 AM REPORT OF CONTACT: LOCAL TITLE: PATIENT CONTACT NOTE STANDARD TITLE: REPORT OF CONTACT DATE OF NOTE: SEP 19, 2024@09:57 ENTRY DATE: SEP 19, 2024@09:57:10 AUTHOR: PAYTON DIOP COSIGNER: URGENCY: STATUS: COMPLETED Patient contact Name of Francitas: JAMESON ALARCONMARISSA CRUM Name/Relationship of Contact if other than Francitas: Date & Time of Contact: Sep@09:57 Type of Contact: Telephone Reason for Contact: Called and spoke with patient he stated, My Adderall was supposed to be delivered yesterday at 9:59AM and I literally went to my mail box while the truck was driving away there was no package for me I have informed delivery and it showed it was delivered so I went to the post office yesterday and the lady told me well it was delivered what can we do? Patient stated, I went back to the post office today and this time there was another staff she as least took my name and phone number Laminator Hand did talk with pharmacy staff and was informed that his Adderall was delivered at 9:59AM patient was provided tracking number [id number]. Patient is in agreement with plan to file a police report and will include the above tracking number. Francitas stated, this never has happened before and I am totally out of my Adderall can I get it today for window please? Discussed with Dr. Moon please see order placed on this date. Patient informed order has been placed for window picket labor union on this date. Francitas stated, I will let you know if they find my Adderall thanks again for your help /samuel/ PAYTON DIOP LPN STAFF NURSE Signed: 09/19/2024 10:13 Receipt Acknowledged By: 09/19/2024 10:14 /samuel/ AUBREY MOON MD STAFF PSYCHIATRIST PAYTON DIOP [facility]
--- OUTSIDE RECORDS SUMMARY | 2024-09-19 05:59 | XMS_ITS | Encounter Summary ---
Author Name [facility] [place] Organization [place] Address [address] [place] [address] Care Team Providers Care Power Nut Runner Operator Name Role Phone RAGINI BLANK Primary [...] section includes the information on record at [place] for the Encounter. Date/Time Encounter Type Encounter Description Reason Pro vider Source Sep 19, 2024 10:59 AM Outpatient Encounter CLINICAL PHARMACY IHE Encounter Template Text not used by VA Social History: Smoking Status (Most current) and Tobacco Use (All prior to encounter date) This section includes the most current, and the historical, smoking and tobacco- related health factors from the [place] facility where the Encounter took place. Current Smoking Status This section includes the most current smoking, or tobacco-related health factor, from the [place] facility where the Encounter took place. Date/Time Current Smoking Status Comment [place] ity May 17, 2024 02:30 PM VA-TOBACCO USE EVERY DAY CIGARET [facility] Tobacco Use History This section includes a history of the smoking, or tobacco-related health factors, that were collected on or before the date of the Encounter. The data comes from the [place] facility where the Encounter took place. Date/Time Smoking Status/Tobacco Use Comment F acility May 17, 2024 02:30 PM VA-TOBACCO USE EVERY DAY CIGARET [facility] November 01, 2018 12:58 PM VA-TOBACCO DOESNT USE WI 30 MIN WAKEUP [facility] November 01, 2018 12:58 PM VA-TOBACCO USE 5 TO 15 YEARS [facility] November 01, 2018 12:58 PM VA-TOBACCO USE ADVICE [facility] November 01, 2018 12:58 PM VA-TOBACCO USE DENTAL PROSTHETIST YES [facility] November 01, 2018 12:58 PM VA-TOBACCO USE MED YES [facility] November 01, 2018 12:58 PM VA-TOBACCO USER EVERY DAY [facility] Aug 05, 2017 02:28 PM CURRENT TOBACCO USER [facility] Jun 10, 2016 02:39 PM INPT TOBACCO COUNSELING [facility] Jun 10, 2016 02:39 PM INPT TOBACCO USER M [facility] Jun 10, 2016 08:23 AM CURRENT TOBACCO USER [facility] Advance Directives: All historical and current Section Date Range: From patient's date of to the date document was created. This section includes ALL of a patient's completed or amended [place] Advance and Rescinded Directives. The entries below indicate that a directive exists for the patient, but an actual copy is not included with this document. The data comes from all [place] facilities. Date Advance Directives Provider Source Mar 31, 2023 ADVANCE DIRECTIVE DISCUSSION APOORVA KHANNA [facility] Nov 30, 2022 ADVANCE DIRECTIVE DISCUSSION ALEXANDER CONNOR [facility] Jun 17, 2016 ADVANCE DIRECTIVE DISCUSSION CAROLIN FIGUEROA AE [facility] Jun 10, 2016 CLINICAL WARNING NAIDA BRADSHAW [facility] October 07, 2015 ADVANCE DIRECTIVE DISCUSSION Lemuel URRUTIA [facility] Encounter Notes: All associated encounter notes This section contains the clinical notes associated to the Encounter. Date/Time Encounter Note(s) Provider Source Sep 19, 2024 11:00 AM PHARMACY NOTE: LOCAL TITLE: PHARMACY MISSING CONTROLLED SUBSTANCE STANDARD TITLE: PHARMACY NOTE DATE OF NOTE: SEP 19, 2024@11:00 ENTRY DATE: SEP 19, 2024@11:00:16 AUTHOR: VALERIANO HIGGINS COSIGNER: URGENCY: STATUS: COMPLETED PHARMACY MISSING CONTROLLED SUBSTANCE Has ADDENDA Lost or stolen controlled substance: Patient received via: [email or web address] Postal [employer] ([employer]) Tracking #: [id number] Date shipped: September 15, 2024 Drug: AMPHETAMINE/DEXTROAMPHET 30MG SA CAP Prescription number: [id number] Quantity: 56 Enter Transmission Order Number (TRN) from [facility] ([facility]): n/a The package was tampered upon delivery: Not applicable (window pickup or package not received) Other information: requested police report to be filed Provider Instructions: If replacement request is approved, please document approval, enter a new prescription and notify [place] pharmacy of approval. per Dr MOON. /samuel/ Valeriano Higgins, Pharm.D PHARMACIST Signed: 09/19/2024 11:03 Receipt Acknowledged By: 09/19/2024 11:21 /samuel/ CHINTAN TORRE PHARMACIST 09/19/2024 11:58 /samuel/ AUBREY MOON MD STAFF PSYCHIATRIST 09/21/2024 13:39 /samuel/ RENUKA RUCKER Pharmacist 09/19/2024 ADDENDUM STATUS: COMPLETED I missed replacing last line of template with; Provider Comments: ok to order picker/assembler 09/19 - mail refill mary, police report to be filed per Dr Moon /samuel/ Valeriano Higgins, Pharm.D PHARMACIST Signed: 09/19/2024 11:05 VALERIANO HIGGINS [facility]
--- OUTSIDE RECORDS SUMMARY | 2024-09-19 06:18 | XMS_ITS | Encounter Summary ---
Author Name [place] Address [address] [place] [address] Care Team Providers Care Ebd Special Education Teacher Name Role Phone RAGINI BLANK Primary Care [...] section includes the information on record at [place] for the Encounter. Date/Time Encounter Type Encounter Description Reason Provider Source Sep 19, 2024 11:18 AM Outpatient Encounter SUBSTANCE USE DISORDER IND [facility] DIOPPrieto [facility] Encounter Template Text not used by VA Social History: Smoking Status (Most current) and Tobacco Use (All prior to encounter date) This section includes the most current, and the historical, smoking and tobacco- related health factors from the [place] facility where the Encounter took place. Current Smoking Status This section includes the most current smoking, or tobacco-related health factor, from the [place] facility where the Encounter took place. Date/Time Current Smoking Status Comment Facil ity May 17, 2024 02:30 PM VA-TOBACCO USE EVERY DAY CIGARET [facility] Tobacco Use History This section includes a history of the smoking, or tobacco-related health factors, that were collected on or before the date of the Encounter. The data comes from the [place] facility where the Encounter took place. Date/Time Smoking Status/Tobacco Use Comment F acility May 17, 2024 02:30 PM VA-TOBACCO USE EVERY DAY CIGARET [facility] November 01, 2018 12:58 PM VA-TOBACCO DOESNT USE [place] [address] [facility] November 01, 2018 12:58 PM VA-TOBACCO USE [address] [facility] November 01, 2018 12:58 PM VA-TOBACCO USE ADVICE [facility] November 01, 2018 12:58 PM VA-TOBACCO USE WRINKLE CHASER YES [facility] November 01, 2018 12:58 PM VA-TOBACCO USE MED YES [facility] November 01, 2018 12:58 PM VA-TOBACCO USER EVERY DAY [facility] Aug 05, 2017 02:28 PM CURRENT TOBACCO USER [facility] Jun 10, 2016 02:39 PM INPT TOBACCO COUNSELING [facility] Jun 10, 2016 02:39 PM IN[facility]ACCO [facility] Jun 10, 2016 08:23 AM CURRENT TOBACCO USER [facility] Advance Directives: All historical and current Section Date Range: From patient's date of to the date document was created. This section includes ALL of a patient's completed or amended [place] Advance and Rescinded Directives. The entries below indicate that a directive exists for the patient, but an actual copy is not included with this document. The data comes from all [place] facilities. Date Advance Directives Provider Source Mar 31, 2023 ADVANCE DIRECTIVE DISCUSSION APOORVA KHANNA [facility] Nov 30, 2022 ADVANCE DIRECTIVE DISCUSSION ALEXANDER CONNOR [facility] Jun 17, 2016 ADVANCE DIRECTIVE DISCUSSION CAROLIN FIGUEROA AE [facility] Jun 10, 2016 CLINICAL WARNING NAIDA BRADSHAW [facility] October 07, 2015 ADVANCE DIRECTIVE DISCUSSION Lemuel URRUTIA [facility] Encounter Notes: All associated encounter notes This section contains the clinical notes associated to the Encounter. Date/Time Encounter Note(s) Provider Source Sep 20, 2024 09:03 AM MENTAL HEALTH SECU RE MESSAGING: LOCAL TITLE: MENTAL HEALTH SECURE MESSAGING STANDARD TITLE: MENTAL HEALTH SECURE MESSAGING DATE OF NOTE: SEP 20, 2024@09:03 ENTRY DATE: SEP 20, 2024@08:03:09 AUTHOR: STEPHANIA DIOP COSIGNER: URGENCY: STATUS: COMPLETED MENTAL HEALTH SECURE MESSAGING Has ADDENDA ------Original Message Sent: 09/19/2024 05:52 PM ET From: SHAQUILLE ALARCON To: [facility] Mental Health ARS Team % Subject: Medication:Dr benjamín aCt The package showed up on my porch this afternoon before I filed a report. No explanation or phone call I was expecting from [facility]. I'm guessing it was delivered to a different address. I assume I just have my prescription for next month now too? Thanks for your help! ------Original Message Sent: 09/20/2024 09:02 AM ET From: STEPHANIA DIOP To: SHAQUILLE ALARCON Subject: Medication:Dr benjamín Carpio, Thanks for the update! That is great news it arrived yesterday afternoon! As per our phone call Dr. Moon did write new order yesterday for Adderall to be picked up at the window. Did you have a chance to get to pharmacy yesterday to picker and packer your Adderall? Have a great day! Stephania SNYDER [phone] /samuel/ STEPHANIA DIOP LPN STAFF NURSE Signed: 09/20/2024 08:03 09/20/2024 ADDENDUM STATUS: COMPLETED Patient called and left message with [facility] staff informing them that he had picked up the bottle of Adderall yesterday No need for keno writer follow up at this time. /samuel/ STEPHANIA DIOP LPN STAFF NURSE Signed: 09/20/2024 13:[address] [facility] Sep 19, 2024 11:18 AM MENTAL HEALTH SECU RE MESSAGING: LOCAL TITLE: MENTAL HEALTH SECURE MESSAGING STANDARD TITLE: MENTAL HEALTH SECURE MESSAGING DATE OF NOTE: SEP 19, 2024@11:18 ENTRY DATE: SEP 19, 2024@10:18:06 AUTHOR: STEPHANIA DIOP EXP COSIGNER: URGENCY: STATUS: COMPLETED ------Original Message Sent: 09/18/2024 03:29 PM ET From: SHAQUILLE ALARCON To: [facility] Mental Health ARS Team % Subject: Medication:Dr benjamín Christensen. It says that my prescription was delivered to my house today, but it was not there. I've already talked to the post office and they are no help. I'm not sure what to do to get my prescription. ------Original Message Sent: 09/19/2024 11:17 AM ET From: STEPHANIA DIOP To: SHAQUILLE ALARCON Subject: Medication:Dr benjamín Carpio, As per our phone call this morning has placed order for Adderall for window picker and packer today. Good luck with the police report here is the tracking [id number] Stephania Hendrix LPN [phone] /samuel/ STEPHANIA IDOP LPN STAFF NURSE Signed: 09/19/2024 10:[address] [facility]
--- OUTSIDE RECORDS SUMMARY | 2024-10-05 05:03 | XMS_ITS | Encounter Summary ---
Author Name [facility] [place] Organization [facility] [place] Address [address] [place] [address] Care Team Providers Care Software Intern Name Role Phone ABHAY RAGINI Primary Care [...] section includes the information on record at OR for the Encounter. Date/Time Encounter Type Encounter Description Reason Provider Source October 05, 2024 10:03 AM PH1 ASSMT&MGMT NQHP 5-10 TELEPHONE ICD-10-CM F10.129 Alcohol abuse with intoxication, unspecified NORTH RODRIGUEZ Yani Encounter Template Text not used by [place] Assessments - Encounter Diagnoses This section includes the primary and secondary diagnoses documented for the Encounter. Date/Time Primary/Secondary Diagnosis Diagnosis Name Provider Source October 05, 2024 10:03 AM PRIMARY Alcohol abuse with intoxication, unspecified SOPHIE RODRIGUEZ [facility] October 05, 2024 10:03 AM SECONDARY Post-traumatic stress disorder, unspecified SOPHIE RODRIGUEZ [facility] October 05, 2024 10:03 AM SECONDARY Problems related to other legal circumstances [facility]IG[facility] Advance Directives: All historical and current Section Date Range: From patient's date of to the date document was created. This section includes ALL of a patient's completed or amended [place] Advance and Rescinded Directives. The entries below indicate that a directive exists for the patient, but an actual copy is not included with this document. The data comes from all [place] facilities. Date Advance Directives Provider Source Mar 31, 2023 ADVANCE DIRECTIVE DISCUSSION APOORVA KHANNA [facility] Nov 30, 2022 ADVANCE DIRECTIVE DISCUSSION ALEXANDER CONNOR [facility] Jun 17, 2016 ADVANCE DIRECTIVE DISCUSSION CAROLINACAROLIN Lomeli [facility] Jun 10, 2016 CLINICAL WARNING NAIDA BRADSHAW [facility] October 07, 2015 ADVANCE DIRECTIVE DISCUSSION Lemuel URRUTIA [facility] Encounter Notes: All associated encounter notes This section contains the clinical notes associated to the Encounter. Date/Time Encounter Note(s) Provider Source October 05, 2024 10:03 AM REPORT OF CONTACT: LOCAL TITLE: PATIENT CONTACT NOTE STANDARD TITLE: REPORT OF CONTACT DATE OF NOTE: OCTOBER 05, 2024@10:03 ENTRY DATE: OCTOBER 06, 2024@10:03:34 AUTHOR: NORTH RODRIGUEZ EXP COSIGNER: URGENCY: STATUS: COMPLETED Patient contact Name of : SHAQUILLE ALARCON Name/Relationship of Contact if other than : Date & Time of Contact: October@10:03 Type of Contact: Telephone Reason for Contact: Real Estate Underwriter called [facility] to check in about overall well-being in the absence of VTC caser shoe parts. Bonesteel reported that he is doing well overall and that he currently has no needs with which VTC or VJO can assist. inquired about if he can decrease the frequency of his therapy appointments with [facility]. Real Estate Underwriter deferred his programmatic decisions to his current clinicians. Bonesteel expressed understanding and denied any needs at this time. VJO will remain available. /samuel/ JUAN Arellano SPEECH AND LANGUAGE ASSISTANT Signed: 10/06/2024 13:55 NORTH RODRIGUEZ [facility]
--- OUTSIDE RECORDS SUMMARY | 2024-10-06 08:48 | XMS_ITS | Encounter Summary ---
Author Name [facility] [place] Organization [facility] [place] [place] Address [address] [place] [address] Care Team Providers Care Auto Body Detailer Name Role Phone RAGINI BLANK Primary Care [...] section includes the information on record at [place] for the Encounter. Date/Time Encounter Type Encounter Description Reason Pro vider Source October 06, 2024 01:48 PM Outpatient Encounter [facility] Encounter Template Text not used by [place] Social History: Smoking Status (Most current) and Tobacco Use (All prior to encounter date) This section includes the most current, and the historical, smoking and tobacco- related health factors from the [place] facility where the Encounter took place. Current Smoking Status This section includes the most current smoking, or tobacco-related health factor, from the [place] facility where the Encounter took place. Date/Time Current Smoking Status Comment Remington ity May 17, 2024 02:30 PM VA-TOBACCO USE EVERY DAY CIGARET [facility] Tobacco Use History This section includes a history of the smoking, or tobacco-related health factors, that were collected on or before the date of the Encounter. The data comes from the [place] facility where the Encounter took place. Date/Time Smoking Status/Tobacco Use Comment F actiera May 17, 2024 02:30 PM VA-TOBACCO USE EVERY DAY CIGARET [facility] November 01, 2018 12:58 PM VA-TOBACCO DOESNT USE WI 30 MIN WAKEUP [facility] November 01, 2018 12:58 PM VA-TOBACCO USE 5 TO 15 YEARS [facility] November 01, 2018 12:58 PM VA-TOBACCO USE ADVICE [facility] November 01, 2018 12:58 PM VA-TOBACCO USE IN STORE MARKETING REPRESENTATIVE YES [facility] November 01, 2018 12:58 PM VA-TOBACCO USE MED YES [facility] November 01, 2018 12:58 PM VA-TOBACCO USER EVERY DAY [facility] Aug 05, 2017 02:28 PM CURRENT TOBACCO USER [facility] Jun 10, 2016 02:39 PM INPT TOBACCO COUNSELING [facility] Jun 10, 2016 02:39 PM INPT TOBACCO USER [facility] Jun 10, 2016 08:23 AM CURRENT TOBACCO USER [facility] Advance Directives: All historical and current Section Date Range: From patient's date of to the date document was created. This section includes ALL of a patient's completed or amended [place] Advance and Rescinded Directives. The entries below indicate that a directive exists for the patient, but an actual copy is not included with this document. The data comes from all [place] facilities. Date Advance Directives Provider Source Mar 31, 2023 ADVANCE DIRECTIVE DISCUSSION APOORVA KHANNA [facility] Nov 30, 2022 ADVANCE DIRECTIVE DISCUSSION ALEXANDER CONNOR [facility] Jun 17, 2016 ADVANCE DIRECTIVE DISCUSSION CAROLIN FIGUEROA AE [facility] Jun 10, 2016 CLINICAL WARNING NAIDA BRADSHAW [facility] October 07, 2015 ADVANCE DIRECTIVE DISCUSSION Lemuel URRUTIA [facility] Encounter Notes: All associated encounter notes This section contains the clinical notes associated to the Encounter. Date/Time Encounter Note(s) Provider Source October 06, 2024 01:48 PM MENTAL HEALTH ADMINISTRATIVE NOTE: LOCAL TITLE: MH JUSTICE PROGRAMS STANDARD TITLE: MENTAL HEALTH ADMINISTRATIVE NOTE DATE OF NOTE: OCTOBER 06, 2024@13:48 ENTRY DATE: OCTOBER 06, 2024@13:48:59 AUTHOR: NORTH RODRIGUEZ COSIGNER: URGENCY: STATUS: COMPLETED [place] [facility] ([facility]) Program Provider: JUAN Arellano Scope: Case Management Dx: Legal Circumstances 65.3 ICD-10 Length: 15 minutes [facility]- [facility] Date of Court: 10/06/2024 Current status: [place] presented to the [facility] for [facility]TC. Asphalt Surface Heater Operator participated in staffing before court and provided overview of 's clinical presentation and progress to VTC team. During court, Chief Of Party engaged [place] in review of his clinical programming as well as recovery efforts. reported that he engaged in thirty sober support meetings in thirty days and completed thirty days of his alcohol monitoring device. [place] reported that he remains on Antabuse. reported that he will not be in summer classes so will be looking for employment instead. [place] denied any immediate needs with which VTC or VJO can assist. [place] was encouraged to maintain compliance with VTC, probation, and VJO. Next court date: 10/20/2024 /samuel/ JUAN Arellano PICKER MACHINE OPERATOR Signed: 10/06/2024 21:12 NORTH RODRIGUEZ [facility]
--- OUTSIDE RECORDS SUMMARY | 2024-10-20 09:20 | XMS_ITS | Encounter Summary ---
Author Name [facility] [place] [facility] [place] Organization [place] Address [address] [place] [address] Care Team Providers Care Wire Mill Rover Name Role Phone RAGINI BLANK Primary Care [...] Encounter Description Reason Pro vider Source October 20, 2024 02:20 PM Outpatient Encounter [facility] Encounter Template Text not used by [...] VA-TOBACCO USE EVERY DAY CIGARET [facility] Tobacco Use History This section includes a history of the smoking, or tobacco-related health factors, that were collected on or before the date of the Encounter. The data comes from the [place] facility where the Encounter took place. Date/Time Smoking Status/Tobacco Use Comment F actiera May 17, 2024 02:30 PM VA-TOBACCO USE EVERY DAY CIGARET [facility] November 01, 2018 12:58 PM VA-TOBACCO DOESNT USE WI [address] [facility] November 01, 2018 12:58 PM VA-TOBACCO USE [address] [facility] November 01, 2018 12:58 PM VA-TOBACCO USE ADVICE 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 November 01, 2018 12:58 PM VA-TOBACCO USE MED YES [facility] November 01, 2018 12:58 PM VA-TOBACCO USER EVERY DAY [facility] Aug 05, 2017 02:28 [address]BACCO USER [facility] Jun 10, 2016 02:39 PM INPT TOBACCO COUNSELING [facility] Jun 10, 2016 02:39 PM INPT TOBACCO USER [facility] Jun 10, 2016 08:23 [address] US[address] [facility] Advance Directives: All historical and [...] 2023 ADVANCE DIRECTIVE DISCUSSION APOORVA KHANNA [facility] Nov 30, 2022 ADVANCE DIRECTIVE DISCUSSION ALEXANDER CONNOR [facility] Jun 17, 2016 ADVANCE DIRECTIVE DISCUSSION CAROLIN FIGUEROA AE [facility] Jun 10, 2016 CLINICAL WARNING NAIDA BRADSHAW [facility] October 07, 2015 ADVANCE DIRECTIVE DISCUSSION Lemuel URRUTIA [facility] Encounter Notes: All associated encounter notes This section contains the clinical notes associated to the Encounter. Date/Time Encounter Note(s) Provider Source October 20, 2024 02:25 PM MENTAL HEALTH ADMINISTRATIVE NOTE: LOCAL TITLE: MH JUSTICE PROGRAMS STANDARD TITLE: MENTAL HEALTH ADMINISTRATIVE NOTE DATE OF NOTE: OCTOBER 20, 2024@14:25 ENTRY DATE: OCTOBER 27, 2024@09:54:41 AUTHOR: RAYSA RODRIGUEZ COSIGNER: URGENCY: STATUS: COMPLETED Story was scheduled to present in-person today in court. Story did not present as scheduled, and did not give notice to his non-appearahce. VJO and court will remain available to assist with any needs that arise. /samuel/ Raysa Rodriguez REVISING CLERK DESIGNER WRITER Signed: 10/27/2024 09:[address] [facility]
--- OUTSIDE RECORDS SUMMARY | 2024-11-02 17:56 | XMS_ITS | Continuity of Care Document ---
Author Name [facility] Organization [facility] Care Team Providers Care Bean Snapper Name Role Phone [facility] Unavailable Unavailable Problems Combined list of problems from Department of Defense and Veterans Affairs facilities. It does not include entries that were removed or entered in error. Problem Status Onset Date Problem Type Date of Resolution Comments Source Contact Lenses Prescription And Fitting Services Active Condition [facility] Patient Education - Injury Prevention Active Condition DoD visit for: ears / hearing exam Active Condition [facility] visit for: ears, nose, and throat exam Active Condition DoD ASTIGMATISM Active Condition DoD REFRACTIVE ERROR - MYOPIA Active Condition DoD visit for: services physical Active Condition [facility] Administrative Evaluation Services Active Condition [facility] CLASSIC MIGRAINE (WITH AURA) Active Condition [facility] Anticipatory Guidance: Illicit Drug Use Active Condition [facility] Need For Prophylactic Antibiotics Inactive Condition [facility] PHARYNGITIS ACUTE Active Condition DoD UPPER RESPIRATORY INFECTION Active Condition [facility] COMMUNITY-ACQUIRE D PNEUMONIA Inactive Condition [facility] ADHD - Attention deficit disorder with hyperactivity Active Condition [facility] Alcohol abuse Active Condition [facility] Alcohol dependence Active Condition [facility] Alcohol-induced anxiety disorder Active Condition [facility] Alcoholic fatty liver Active Condition [facility] Anxiety Active Condition [facility] Cannabis abuse Active Condition [facility] Depressive disorder Active Condition [facility] Exposure to potentially hazardous substance Active Condition [facility] Exposure to potentially hazardous substance ([facility] [id number]) Active Condition Jul 26 Entered By: SUKUMAR RIOS Comment: Entered automatically through [facility] Problem List documentation program [facility] Family social history Active Condition Jul 18, 2024 Entered By: RAGINI BLANK Comment: alcohol- quit 2023, hx of AUDFeb 2024 Entered By: RAGINI BLANK Comment: tobacco- smokes 5 cig/day , for 12 yearsFeb 2024 Entered By: RAGINI BLANK Comment: illicit drug- noneFeb 2024 Entered By: RAGINI BLANK Comment: , has one daughterFeb 2024 Entered By: RAGINI BLANK Comment: in school- going to [employer] [facility] Fatty liver Active Condition [facility] Hyper[facility]cemia Active Condition [facility] Hyperlipidemia Active Condition [facility] Insomnia Active Condition [facility] Major depressive disorder Active Condition [facility] Myopia Active Condition [facility] Posttraumatic stress disorder Active Condition [facility] Social phobia Active Condition [facility] Tobacco abuse Active Condition [facility] Tobacco use Active Condition [facility] Diagnosis: ICD-10-CM F10.129 Alcohol abuse with intoxication, unspecified Active Diagnosis [facility] Diagnosis: ICD-10-CM F10.20 Alcohol dependence, uncomplicated Active Diagnosis [facility] Diagnosis: ICD-10-CM F43.10 Post-traumatic stress disorder, unspecified Active Diagnosis [facility] Diagnosis: ICD-10-CM Z00.00 Encntr for general adult medical exam w/o abnormal findings Active Diagnosis [facility] Diagnosis: ICD-10-CM F33.8 Other recurrent depressive disorders Active Diagnosis [facility] Diagnosis: ICD-10-CM F43.20 Adjustment disorder, unspecified Active Diagnosis [facility] Admit Reason: ETOH WITHDRAWAL Active Diagnosis [facility] Diagnosis: ICD-10-CM F10.120 Alcohol abuse with intoxication, uncomplicated Active Diagnosis [facility] Diagnosis: ICD-10-CM S06.0XAA Concussion with LOC status unknown, initial encounter Active Diagnosis [facility] Diagnosis: ICD-10-CM F10.29 Alcohol dependence with unspecified alcohol-induced disorder Active Diagnosis [place] [facility] Diagnosis: ICD-10-CM R45.851 Suicidal ideations Active Diagnosis [facility] Admit Reason: ETOH,SI Active Diagnosis [facility] Diagnosis: ICD-10-CM F10.229 Alcohol dependence with intoxication, unspecified Active Diagnosis [facility] Diagnosis: ICD-10-CM F33.1 Major depressive disorder, recurrent, moderate Active Diagnosis [facility] Diagnosis: ICD-10-CM F10.10 Alcohol abuse, uncomplicated Active Diagnosis [facility] Diagnosis: ICD-10-CM Z13.6 Encounter for screening for cardiovascular disorders Active Diagnosis [facility] Diagnosis: ICD-10-CM Z72.89 Other problems related to lifestyle Active Diagnosis [facility] Diagnosis: ICD-10-CM Z71.81 Spiritual or presybeterian counseling Active Diagnosis [facility] Diagnosis: ICD-10-CM F90.9 Attention-deficit hyperactivity disorder, unspecified type Active Diagnosis [facility] Admit Reason: DETOX Active Diagnosis [facility] Diagnosis: ICD-10-CM Z72.0 Tobacco use Active Diagnosis [facility] Admit Reason: ETOH S/I Active Diagnosis [facility] Diagnosis: ICD-10-CM Z13.79 Encntr for oth screening for genetic and chromsoml anomalies Active Diagnosis [facility] Diagnosis: ICD-10-CM F41.9 Anxiety disorder, unspecified Active Diagnosis [facility] Diagnosis: ICD-10-CM K76.0 Fatty (change of) liver, not elsewhere classified Active Diagnosis [facility] Medications Combined list of outpatient medications from Department of Defense and Veterans Affairs facilities.Medications provided include 1) outpatient medications from the last 15 months, and 2) patient-reported medications. Medication Details Route Status Patient Instructions Prescription Expires Prescription Number Last Dispense Date Ordering Provider Order Date Order Qty Source AMPHETAMINE /DEXTROAMPH ETAMINE RESIN COMPLEX 30MG CAP,SA TAKE ONE CAPSULE BY MOUTH TWICE A DAY FOR ATTENTIO N ORAL DISCONT INUED 10/12/2024 [id number] 5 AMALIA MATIAS 2024 56 [facility] AMPHETAMINE /DEXTROAMPH ETAMINE RESIN COMPLEX 30MG CAP,SA TAKE ONE CAPSULE BY MOUTH TWICE A DAY FOR ATTENTIO N ORAL DISCONT INUED 09/20/2024 [id number] 5 AMALIA MATIAS E 2024 56 [facility] AMPHETAMINE /DEXTROAMPH ETAMINE RESIN COMPLEX 30MG CAP,SA TAKE ONE CAPSULE BY MOUTH TWICE A DAY FOR ATTENTIO N ORAL DISCONT INUED 08/25/2024 [id number] 5 AMALIA MATIAS E 2024 56 [facility] AMPHETAMINE /DEXTROAMPH ETAMINE RESIN COMPLEX 30MG CAP,SA TAKE ONE CAPSULE BY MOUTH TWICE A DAY FOR ATTENTIO N ORAL DISCONT INUED 07/27/2024 [id number] 5 AMALIA MATIAS E 2024 56 [facility] AMPHETAMINE /DEXTROAMPH ETAMINE RESIN COMPLEX 30MG CAP,SA TAKE ONE CAPSULE BY MOUTH TWICE A DAY FOR ATTENTIO N ORAL DISCONT INUED 07/01/2024 [id number] 4 CARLITOS OH E 2023 56 [facility] AMPHETAMINE /DEXTROAMPH ETAMINE RESIN COMPLEX 30MG CAP,SA TAKE ONE CAPSULE BY MOUTH TWICE A DAY FOR ATTENTIO N ORAL DISCONT INUED 06/07/2024 [id number] 4 AMALIA MATIAS E 2023 56 [facility] AMPHETAMINE /DEXTROAMPH ETAMINE RESIN COMPLEX 30MG CAP,SA TAKE ONE CAPSULE BY MOUTH TWICE A DAY FOR ATTENTIO N ORAL DISCONT INUED 04/08/2024 [id number] 4 AMALIA MATIAS E 2023 56 [facility] AMPHETAMINE /DEXTROAMPH ETAMINE RESIN COMPLEX 30MG CAP,SA TAKE ONE CAPSULE BY MOUTH TWICE A DAY FOR ATTENTIO N ORAL DISCONT INUED 03/11/2024 [id number] 4 AMALIA MATIAS E 2023 56 [facility] AMPHETAMINE /DEXTROAMPH ETAMINE RESIN COMPLEX 30MG CAP,SA TAKE ONE CAPSULE BY MOUTH TWICE A DAY FOR ATTENTIO N ORAL DISCONT INUED 02/11/2024 [id number] 4 AMALIA MATIAS E 2023 56 [facility] AMPHETAMINE /DEXTROAMPH ETAMINE RESIN COMPLEX 30MG CAP,SA TAKE ONE CAPSULE BY MOUTH TWICE A DAY FOR ATTENTIO N ORAL DISCONT INUED 01/16/2024 [id number] 4 AMALIA MATIAS E 2023 56 [facility] AMPHETAMINE /DEXTROAMPH ETAMINE RESIN COMPLEX 30MG CAP,SA TAKE ONE CAPSULE BY MOUTH TWICE A DAY FOR ATTENTIO N ORAL DISCONT INUED 12/18/2023 [id number] 4 AMALIA MATIAS E 2023 56 [facility] AMPHETAMINE /DEXTROAMPH ETAMINE RESIN COMPLEX 30MG CAP,SA TAKE ONE CAPSULE BY MOUTH TWICE A DAY FOR ATTENTIO N (WILL PROVIDE FULL SUPPLY AFTER APPT ON 09/29 ) ORAL DISCONT INUED 10/24/2023 [id number] 4 AMALIA MATIAS E 2023 28 [facility] AMPHETAMINE /DEXTROAMPH ETAMINE RESIN COMPLEX 30MG CAP,SA TAKE ONE CAPSULE BY MOUTH TWICE A DAY FOR ATTENTIO N ORAL DISCONT INUED 10/16/2023 [id number] 4 AMALIA MATIAS E 2023 28 [facility] AMPHETAMINE /DEXTROAMPH ETAMINE RESIN COMPLEX 30MG CAP,SA TAKE ONE CAPSULE BY MOUTH TWICE A DAY FOR ATTENTIO N ORAL DISCONT INUED 09/18/2023 [id number] 4 AMALIA MATIAS E 2023 56 [facility] AMPHETAMINE /DEXTROAMPH ETAMINE RESIN COMPLEX 30MG CAP,SA TAKE ONE CAPSULE BY MOUTH TWICE A DAY FOR ATTENTIO N 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 10/19/2024 [id number] 5 AMALIA MATIAS E 2024 56 [facility] AMPHETAMINE /DEXTROAMPH ETAMINE RESIN COMPLEX 30MG CAP,SA TAKE ONE CAPSULE BY MOUTH TWICE A DAY FOR ATTENTIO N ORAL 05/03/2024 [id number] 4 AMALIA MATIAS E 2023 56 [facility] AMPHETAMINE /DEXTROAMPH ETAMINE RESIN COMPLEX 30MG CAP,SA TAKE ONE CAPSULE BY MOUTH TWICE A DAY FOR ATTENTIO N ORAL 11/11/2023 [id number] 4 AMALIA MATIAS E 2023 56 [facility] DIAZEPAM 5MG TAB TAKE ONE TABLET BY MOUTH TWICE A DAY FOR ALCOHOL WITHDRAW AL/ANXIE TY ORAL 04/06/2024 [id number] 4 MARTHA,IS MAIL H 2023 4 [facility] DISULFIRAM 250MG TAB TAKE ONE TABLET BY MOUTH EVERY DAY FOR SOBRIETY ORAL ACTIVE 05/18/2025 [id number] 5 AMALIA MATIAS E 2023 90 [facility] FOLIC ACID 1MG TAB TAKE ONE TABLET BY MOUTH EVERY DAY FOR FOLIC ACID SUPPLEME NT ORAL ACTIVE 03/08/2025 [id number] 4 TETE THOMAS 2023 30 [facility] FOLIC ACID 1MG TAB TAKE TWO TABLETS BY MOUTH EVERY DAY FOR ALCOHOL WITHDRAW AL ORAL 11/18/2023 [id number] 4 [place] ESTRADA [address] [facility] GABAPENTIN 300MG CAP TAKE TWO CAPSULES THREE TIMES A DAY FOR 2 DAYS, THEN TAKE ONE CAPSULE BY MOUTH THREE TIMES A DAY FOR 2 DAYS FOR ALCOHOL WITHDRAW AL 06/10/2024 [id number] 4 MARGO VASQUEZ 2023 18 [facility] GABAPENTIN 600MG TAB TAKE 1 TABLET BY MOUTH THREE TIMES A DAY FOR 2 DAYS ALCOHOL WITHDRAW AL ORAL DISCONT INUED 06/10/2024 [id number] 4 MARGO VASQUEZ 2023 6 [facility] IBUPROFEN 200MG TAB TAKE ONE TABLET BY MOUTH TWICE A DAY NEEDED FOR PAIN ORAL 08/16/2024 [id number] 5 SUE BLANK 2024 100 [facility] KETAMINE INJ,SOLN INJECT IV INTRAV ENOUS ACTIVE Ronald JORDAN R 2023 [facility] MULTIVITAMI N/MINERALS SENIOR FORMULA TAB TAKE 1 TABLET BY MOUTH EVERY DAY FOR SUPPLEME NT ORAL ACTIVE 12/17/2024 [id number] 5 AMALIA MATIAS E 2023 60 [facility] MULTIVITAMI N/MINERALS SENIOR FORMULA TAB TAKE 1 TABLET BY MOUTH EVERY MORNING FOR VITAMIN SUPPLEME NT ORAL 11/18/2023 [id number] [place] ESTRADA [address] [facility] NICOTINE POLACRILEX 2MG TAB,CHEWG GUM CHEW 1 PIECE IN MOUTH EVERY 2 HOURS NEEDED FOR QUITTING SMOKING NO SMOKING OR CHEWING TOBACCO WHILE USING GUM ORAL 11/18/2023 [id number] [place] ESTRADA [address] [facility] THIAMINE 100MG TAB 100MG PO QDAY ORAL DISCONT INUED 03/07/2024 DAVE LAWTON 2023 [facility] THIAMINE 100MG TAB TAKE ONE TABLET BY MOUTH EVERY DAY FOR SUPPLEME NT ORAL 06/05/2024 [id number] 4 TETE THOMAS MAIL H 2023 100 [facility] THIAMINE 100MG TAB TAKE ONE TABLET BY MOUTH ONCE A DAY FOR ALCOHOL WITHDRAW AL ORAL 11/18/2023 [id number] [place] ESTRADA [address] [facility] TRAZODONE HCL 100MG TAB TAKE ONE TABLET BY MOUTH AT BEDTIME NEEDED FOR SLEEP ORAL ACTIVE 03/10/2025 [id number] 4 AMALIA MTAIAS E 2023 90 [facility] TRAZODONE HCL 100MG TAB TAKE ONE TABLET BY MOUTH AT BEDTIME NEEDED FOR SLEEP ORAL DISCONT INUED 09/13/2024 [id number] 4 AMALIA MATIAS E 2023 90 [facility] Immunizations Combined list of available immunizations from the Department of Defense and Veterans Affairs facilities. Immunization Series Date Given Administered By Site Reaction Lot Number CVX Code Drug Dry Folder Cloth Status Comments Source INFLUENZA, INJECTABLE, QUADRIVALENT, PRESERVATIVE FREE 2020 150 complet ed HISTORICA L INFORMATI ON - FROM OTHER PROVIDER, Partner:Lemuel MASCORRO.Admin istered by:[facility] [id number].([id number]) .ND:[id number] ddress:[id number] [place].5 [id number] Dosage: ML 0.5 [facility] COVID-19 (MODERNA), MRNA, LNP-S, PF, 100 MCG/0.5ML DOSE OR 50 MCG/0.25ML DOSE 2020 207 complet ed HISTORICA L INFORMATI ON - FROM OTHER REGISTRY, [facility] COVID-19 (MODERNA), MRNA, LNP-S, PF, 100 MCG/0.5ML DOSE OR 50 MCG/0.25ML DOSE 2020 207 complet ed HISTORICA L INFORMATI ON - FROM OTHER REGISTRY, [facility] INFLUENZA, INJECTABLE, QUADRIVALENT, PRESERVATIVE FREE 2019 150 complet ed HISTORICA L INFORMATI ON - FROM OTHER REGISTRY, [facility] INFLUENZA, INJECTABLE, QUADRIVALENT 2018 158 complet ed HISTORICA L INFORMATI ON - FROM OTHER REGISTRY, [facility] INFLUENZA, INJECTABLE, MDCK, PRESERVATIVE FREE, QUADRIVALENT 2017 171 complet ed HISTORICA L INFORMATI ON - FROM OTHER REGISTRY, [facility] INFLUENZA, SEASONAL, INJECTABLE 2017 141 complet ed [facility] INFLUENZA, SEASONAL, INJECTABLE 2016 141 complet ed [facility] TDAP 2016 115 complet ed HISTORICA L INFORMATI ON - FROM OTHER REGISTRY, [facility] INFLUENZA, INJECTABLE,QU ADRIVALENT, PRESERVATIVE FREE, PEDIATRIC 2016 161 complet ed HISTORICA L INFORMATI ON - FROM OTHER REGISTRY, [facility] PNEUMOCOCCAL POLYSACCHARID E PPV23 2016 33 complet ed [employer] [id number] [facility] INFLUENZA, SEASONAL, INJECTABLE, PRESERVATIVE FREE 2016 140 complet ed [facility] TDAP 2016 115 complet ed [employer],4S NH42,08/06 08/23 [facility] INFLUENZA, SEASONAL, INJECTABLE [address] [facility] INFLUENZA, SEASONAL, INJECTABLE 2015 141 complet ed per phone call/jamil rds [facility] TDAP 2015 115 complet ed [facility] INFLUENZA, INJECTABLE, QUADRIVALENT, PRESERVATIVE FREE 2013 150 complet ed HISTORICA L INFORMATI ON - FROM OTHER REGISTRY, [facility] NOVEL INFLUENZA-H1N 1-09, ALL FORMULATIONS 2012 128 complet ed HISTORICA L INFORMATI ON - FROM OTHER REGISTRY, [facility] typhoid Vi capsular polysaccharid e vaccine 2 2010 [id number] [employer] (WAL) complet ed typhoid Vi capsular polysacch aride vaccine DoD influenza virus vaccine, live, attenuated, for intranasal use 0 2010 [id number] [employer] (MED) complet ed influenza virus vaccine, live, attenuate d, for intranasa l use DoD influenza virus vaccine, split virus (incl. purified surface antigen)-reti red CODE 0 2009 [id number] [employer] (MED) complet ed influenza virus vaccine, split virus (incl. purified surface antigen)- retired CODE DoD anthrax vaccine 1 2009 [id number] [facility] ([facility]) complet ed anthrax vaccine DoD Novel influenza-H1N 1-09, injectable 0 2008 [id number] 127 (AG) complet ed Novel influenza -W3N9-28, injectabl e DoD influenza virus vaccine, split virus (incl. purified surface antigen)-reti red CODE 0 2008 [id number] 15 [employer] (MED) complet ed influenza virus vaccine, split virus (incl. purified surface antigen)- retired CODE DoD typhoid Vi capsular polysaccharid e vaccine 1 2008 UNK 101 [employer] (WAL) complet ed typhoid Vi capsular polysacch aride vaccine DoD hepatitis A and hepatitis B vaccine 3 2008 UNK 104 [employer] (SKB) complet ed hepatitis A and hepatitis B vaccine DoD hepatitis A and hepatitis B vaccine 2 2007 UNK 104 [employer] (SKB) complet ed hepatitis A and hepatitis B vaccine DoD tetanus and diphtheria toxoids, adsorbed, preservative free, for adult use (2 Lf of tetanus toxoid and 2 Lf of diphtheria toxoid) 0 2007 [id number] Sanofi Pasteur (PMC) complet ed tetanus and diphtheri a toxoids, adsorbed, preservat laurel free, for adult use (2 Lf of tetanus toxoid and 2 Lf of diphtheri a toxoid) DoD poliovirus vaccine, inactivated 0 2007 [id number] 10 [employer] (MED) complet ed polioviru s vaccine, inactivat ed DoD yellow fever vaccine 0 2007 [id number] 37 [facility] ([facility]) complet ed yellow fever vaccine DoD hepatitis A and hepatitis B vaccine 1 2007 [id number] 104 [employer] (SKB) complet ed hepatitis A and hepatitis B vaccine DoD measles, mumps and rubella virus vaccine 0 2007 [id number] Merck (MSD) complet ed measles, mumps and rubella virus vaccine DoD influenza virus vaccine, split virus (incl. purified surface antigen)-reti red CODE 0 2007 [id number] 15 Unknown (UNK) comple t ed influenza virus vaccine, split virus (incl. purified surface antigen)- retired CODE DoD pneumococcal polysaccharid e vaccine, 23 valent 0 2007 [id number] 33 [employer] (AVB) complet ed pneumococ andre polysacch aride vaccine, 23 valent DoD hepatitis A and hepatitis B vaccine 1 2007 [id number] 2AC 104 [employer] (SKB) complet ed hepatitis A and hepatitis B vaccine DoD meningococcal polysaccharid e (groups A, C, Y and W-135) diphtheria toxoid conjugate vaccine (MCV4P) 0 2007 [id number] [employer] (AVB) complet ed meningoco ccal polysacch aride (groups A, C, Y and W-135) diphtheri a toxoid conjugate vaccine (MCV4P) DoD Results Combined list of recent chemistry, hematology [...] Jul 18, 2024 10:39 AM Reporting Lab: [facility] [address] Performing Lab: [facility] [address] [facility] CBC LEUKOCYTES [#/VOLUME] IN BLOOD BY AUTOMATED COUNT 6.2 4.0 - 11.0 07/18 Specimen Type: BLOOD No comment entered. Ordering Provider: GABRIEL BLANK Report Released Date/Time: Jul 18, 2024 10:39 AM Reporting Lab: [facility] [address] Performing Lab: [facility] [address] [facility] CBC ERYTHROCYT ES [#/VOLUME] IN BLOOD BY AUTOMATED COUNT 5.01 4.60 - 6.20 07/18 Specimen Type: BLOOD No comment entered. Ordering Provider: GABRIEL BLANK Report Released Date/Time: Jul 18, 2024 10:39 AM Reporting Lab: [facility] [address] Performing Lab: [facility] [address] [facility] CBC HEMOGLOBIN [MASS/VOLU ME] IN BLOOD 15.2 g/dL 13.5 - 17.9 07/18 Specimen Type: BLOOD No comment entered. Ordering Provider: GABRIEL BLANK Report Released Date/Time: Jul 18, 2024 10:39 AM Reporting Lab: [facility] [address] Performing Lab: [facility] [address] [facility] CBC HEMATOCRIT [VOLUME FRACTION] OF BLOOD BY AUTOMATED COUNT 44.8 41.0 - 54.0 07/18 Specimen Type: BLOOD No comment entered. Ordering Provider: GABRIEL BLANK Report Released Date/Time: Jul 18, 2024 10:39 AM Reporting Lab: [facility] [address] Performing Lab: [facility] [address] [facility] CBC MCV [ENTITIC VOLUME] BY AUTOMATED COUNT 89.4 fL 80.0 - 100.0 07/18 Specimen Type: BLOOD No comment entered. Ordering Provider: GABRIEL BLANK Report Released Date/Time: Jul 18, 2024 10:39 AM Reporting Lab: [facility] [address] Performing Lab: [facility] [address] [facility] CBC MCH [ENTITIC MASS] BY AUTOMATED COUNT 30.3 pg 27.0 - 33.0 07/18 Specimen Type: BLOOD No comment entered. Ordering Provider: GABRIEL BLANK Report Released Date/Time: Jul 18, 2024 10:39 AM Reporting Lab: [facility] [address] Performing Lab: [facility] [address] [facility] CBC MCHC [MASS/VOLU ME] BY AUTOMATED COUNT 33.9 g/dL 32.0 - 37.5 07/18 Specimen Type: BLOOD No comment entered. Ordering Provider: GABRIEL BLANK Report Released Date/Time: Jul 18, 2024 10:39 AM Reporting Lab: [facility] [address] Performing Lab: [facility] [address] [facility] CBC PLATELETS [#/VOLUME] IN BLOOD BY AUTOMATED COUNT 234 150 - 400 07/18 Specimen Type: BLOOD No comment entered. Ordering Provider: GABRIEL BLANK Report Released Date/Time: Jul 18, 2024 10:39 AM Reporting Lab: [facility] [address] Performing Lab: [facility] [address] [facility] CBC PLATELET MEAN VOLUME [ENTITIC VOLUME] IN BLOOD BY AUTOMATED COUNT 10.1 fL 9.1 - 13.0 07/18 Specimen Type: BLOOD No comment entered. Ordering Provider: GABRIEL BLANK Report Released Date/Time: Jul 18, 2024 10:39 AM Reporting Lab: [facility] [address] Performing Lab: [facility] [address] [facility] CBC ERYTHROCYT E DISTRIBUTI ON WIDTH [RATIO] BY AUTOMATED COUNT 12.4 11.5 - 14.5 07/18 Specimen Type: BLOOD No comment entered. Ordering Provider: GABRIEL BLANK Report Released Date/Time: Jul 18, 2024 10:39 AM Reporting Lab: [facility] [address] Performing Lab: [facility] [address] [facility] COMPREHE NSIVE METABOLI C PANEL+MG CREATININE [MASS/VOLU ME] IN SERUM OR PLASMA 0.9 mg/dL 0.7 - 1.2 07/18 Specimen Type: PLASMA No comment entered. Ordering Provider: GABRIEL BLANK Report Released Date/Time: Jul 18, 2024 10:39 AM Reporting Lab: [facility] [address] Performing Lab: [facility] [address] [facility] COMPREHE NSIVE METABOLI C PANEL+MG UREA NITROGEN [MASS/VOLU ME] IN SERUM OR PLASMA 11 mg/dL 8 - 26 07/18 Specimen Type: PLASMA No comment entered. Ordering Provider: GABRIEL BLANK Report Released Date/Time: Jul 18, 2024 10:39 AM Reporting Lab: [facility] [address] Performing Lab: [facility] [address] [facility] COMPREHE NSIVE METABOLI C PANEL+MG GLUCOSE [MASS/VOLU ME] IN SERUM OR PLASMA 130 mg/dL 70 - 100 07/18 H Specimen Type: PLASMA No comment entered. Ordering Provider: GABRIEL BLANK Report Released Date/Time: Jul 18, 2024 10:39 AM Reporting Lab: [facility] [address] Performing Lab: [facility] [address] [facility] COMPREHE NSIVE METABOLI C PANEL+MG SODIUM [MOLES/VOL UME] IN SERUM OR PLASMA 143 mmol/L 136 - 145 07/18 Specimen Type: PLASMA No comment entered. Ordering Provider: GABRIEL BLANK Report Released Date/Time: Jul 18, 2024 10:39 AM Reporting Lab: [facility] [address] Performing Lab: [facility] [address] [facility] COMPREHE NSIVE METABOLI C PANEL+MG POTASSIUM [MOLES/VOL UME] IN SERUM OR PLASMA 4.2 mmol/L 3.5 - 5.1 07/18 Specimen Type: PLASMA No comment entered. Ordering Provider: GABRIEL BLANK Report Released Date/Time: Jul 18, 2024 10:39 AM Reporting Lab: [facility] [address] Performing Lab: [facility] [address] [facility] COMPREHE NSIVE METABOLI C PANEL+MG CHLORIDE [MOLES/VOL UME] IN SERUM OR PLASMA 109 mmol/L 98 - 107 07/18 H Specimen Type: PLASMA No comment entered. Ordering Provider: GABRIEL BLANK Report Released Date/Time: Jul 18, 2024 10:39 AM Reporting Lab: [facility] [address] Performing Lab: [facility] [address] [facility] COMPREHE NSIVE METABOLI C PANEL+MG CARBON DIOXIDE, TOTAL [MOLES/VOL UME] IN SERUM OR PLASMA 24 mmol/L 22 - 29 07/18 Specimen Type: PLASMA No comment entered. Ordering Provider: GABRIEL BLANK Report Released Date/Time: Jul 18, 2024 10:39 AM Reporting Lab: [facility] [facility] [address] Performing Lab: [facility] [address] [facility] COMPREHE NSIVE METABOLI C PANEL+MG CALCIUM [MASS/VOLU ME] IN SERUM OR PLASMA 9.5 mg/dL 8.4 - 10.2 07/18 Specimen Type: PLASMA No comment entered. Ordering Provider: GABRIEL BLANK Report Released Date/Time: Jul 18, 2024 10:39 AM Reporting Lab: [facility] [address] Performing Lab: [facility] [address] [facility] COMPREHE NSIVE METABOLI C PANEL+MG PROTEIN [MASS/VOLU ME] IN SERUM OR PLASMA 7.1 g/dL 6.4 - 8.3 07/18 Specimen Type: PLASMA No comment entered. Ordering Provider: GABRIEL BLANK Report Released Date/Time: Jul 18, 2024 10:39 AM Reporting Lab: [facility] [address] Performing Lab: [facility] [address] [facility] COMPREHE NSIVE METABOLI C PANEL+MG ALBUMIN [MASS/VOLU ME] IN SERUM OR PLASMA 4.2 g/dL 3.5 - 5.0 07/18 Specimen Type: PLASMA No comment entered. Ordering Provider: GABRIEL BLANK Report Released Date/Time: Jul 18, 2024 10:39 AM Reporting Lab: [facility] [address] Performing Lab: [facility] [address] [facility] COMPREHE NSIVE METABOLI C PANEL+MG BILIRUBIN. TOTAL [MASS/VOLU ME] IN SERUM OR PLASMA 0.3 mg/dL 0.2 - 1.2 07/18 Specimen Type: PLASMA No comment entered. Ordering Provider: GABRIEL BLANK Report Released Date/Time: Jul 18, 2024 10:39 AM Reporting Lab: [facility] [address] Performing Lab: [facility] [address] [facility] COMPREHE NSIVE METABOLI C PANEL+MG MAGNESIUM [MASS/VOLU ME] IN SERUM OR PLASMA 1.8 mg/dL 1.6 - 2.6 07/18 Specimen Type: PLASMA No comment entered. Ordering Provider: GABRIEL BLANK Report Released Date/Time: Jul 18, 2024 10:39 AM Reporting Lab: [facility] [address] Performing Lab: [facility] [address] [facility] COMPREHE NSIVE METABOLI C PANEL+MG ANION GAP IN SERUM OR PLASMA 10 mmol/L 5 - 15 07/18 Specimen Type: PLASMA No comment entered. Ordering Provider: GABRIEL BLANK Report Released Date/Time: Jul 18, 2024 10:39 AM Reporting Lab: [facility] [address] Performing Lab: [facility] [address] [facility] COMPREHE NSIVE METABOLI C PANEL+MG ALKALINE PHOSPHATAS E [ENZYMATIC ACTIVITY/V OLUME] IN SERUM OR PLASMA 52 U/L 40 - 150 07/18 Specimen Type: PLASMA No comment entered. Ordering Provider: GABRIEL BLANK Report Released Date/Time: Jul 18, 2024 10:39 AM Reporting Lab: [facility] [address] Performing Lab: [facility] [address] [facility] COMPREHE NSIVE METABOLI C PANEL+MG ALANINE AMINOTRANS FERASE [ENZYMATIC ACTIVITY/V OLUME] IN SERUM OR PLASMA 12 U/L <44 - 44 07/18 Specimen Type: PLASMA No comment entered. Ordering Provider: GABRIEL BLANK Report Released Date/Time: Jul 18, 2024 10:39 AM Reporting Lab: [facility] [address] Performing Lab: [facility] [address] [facility] COMPREHE NSIVE METABOLI C PANEL+MG ASPARTATE AMINOTRANS FERASE [ENZYMATIC ACTIVITY/V OLUME] IN SERUM OR PLASMA 18 U/L 11 - 34 07/18 Specimen Type: PLASMA No comment entered. Ordering Provider: GABRIEL BLANK Report Released Date/Time: Jul 18, 2024 10:39 AM Reporting Lab: [facility] [address] Performing Lab: [facility] [address] [facility] COMPREHE NSIVE METABOLI C PANEL+MG GLOMERULAR FILTRATION RATE/1.73 SQ M.PREDICTE D [VOLUME RATE/AREA] IN SERUM, PLASMA OR BLOOD BY CREATININE -BASED FORMULA (CKD-EPI 2020) >90 60 07/18 Specimen Type: PLASMA No comment entered. Ordering Provider: GABRIEL BLANK Report Released Date/Time: Jul 18, 2024 10:39 AM Reporting Lab: [facility] [address] Performing Lab: [facility] [address] [facility] HEMOGLOB IN A1C HEMOGLOBIN A1C/HEMOGL OBIN.TOTAL [...] Jul 18, 2024 10:39 AM Reporting Lab: [facility] [address] Performing Lab: [facility] [address] [facility] TSH W/REFLEX TO FREE T4 THYROTROPI N [UNITS/VOL UME] IN SERUM OR PLASMA 1.88 u[IU]/mL 0.35 - 4.94 07/18 Specimen Type: PLASMA No comment entered. Ordering Provider: GABRIEL BLANK Report Released Date/Time: Jul 18, 2024 10:39 AM Reporting Lab: [facility] [address] Performing Lab: [facility] [address] HILARIA NICOLE CBC LEUKOCYTES [#/VOLUME] IN BLOOD BY AUTOMATED COUNT 5.1 4.0 - 11.0 05/11 Specimen Type: BLOOD No comment entered. Ordering Provider: MARGO CANSECO Report Released Date/Time: May 10, 2024 07:15 PM Reporting Lab: [facility] [address] Performing Lab: [facility] [address] [facility] CBC ERYTHROCYT ES [#/VOLUME] IN BLOOD BY AUTOMATED COUNT 4.19 4.60 - 6.20 05/11 L Specimen Type: BLOOD No comment entered. Ordering Provider: MARGO CANSECO Report Released Date/Time: May 10, 2024 07:15 PM Reporting Lab: [facility] [address] Performing Lab: [facility] [address] [facility] CBC HEMOGLOBIN [MASS/VOLU ME] IN BLOOD 12.5 g/dL 13.5 - 17.9 05/11 L Specimen Type: BLOOD No comment entered. Ordering Provider: MARGO CANSECO Report Released Date/Time: May 10, 2024 07:15 PM Reporting Lab: [facility] [address] Performing Lab: [facility] [address] [facility] CBC HEMATOCRIT [VOLUME FRACTION] OF BLOOD BY AUTOMATED COUNT 36.6 41.0 - 54.0 05/11 L Specimen Type: BLOOD No comment entered. Ordering Provider: MARGO CANSECO Report Released Date/Time: May 10, 2024 07:15 PM Reporting Lab: [facility] [address] Performing Lab: [facility] [address] [facility] CBC MCV [ENTITIC VOLUME] BY AUTOMATED COUNT 87.4 fL 80.0 - 100.0 05/11 Specimen Type: BLOOD No comment entered. Ordering Provider: MARGO CANSECO Report Released Date/Time: May 10, 2024 07:15 PM Reporting Lab: [facility] [address] Performing Lab: [facility] [address] [facility] CBC MCH [ENTITIC MASS] BY AUTOMATED COUNT 29.8 pg 27.0 - 33.0 05/11 Specimen Type: BLOOD No comment entered. Ordering Provider: MARGO CANSECO Report Released Date/Time: May 10, 2024 07:15 PM Reporting Lab: [facility] [address] Performing Lab: [facility] [address] [facility] CBC MCHC [MASS/VOLU ME] BY AUTOMATED COUNT 34.2 g/dL 32.0 - 37.5 05/11 Specimen Type: BLOOD No comment entered. Ordering Provider: MARGO CANSECO Report Released Date/Time: May 10, 2024 07:15 PM Reporting Lab: [facility] [address] Performing Lab: [facility] [address] [facility] CBC PLATELETS [#/VOLUME] IN BLOOD BY AUTOMATED COUNT 74 150 - 400 05/11 L Specimen Type: BLOOD No comment entered. Ordering Provider: MARGO CANSECO Report Released Date/Time: May 10, 2024 07:15 PM Reporting Lab: [facility] [address] Performing Lab: [facility] [address] [facility] CBC PLATELET MEAN VOLUME [ENTITIC VOLUME] IN BLOOD BY AUTOMATED COUNT 10.6 fL 9.1 - 13.0 05/11 Specimen Type: BLOOD No comment entered. Ordering Provider: MARGO CANSECO Report Released Date/Time: May 10, 2024 07:15 PM Reporting Lab: [facility] [address] Performing Lab: [facility] [address] [facility] CBC ERYTHROCYT E DISTRIBUTI ON WIDTH [RATIO] BY AUTOMATED COUNT 13.3 11.5 - 14.5 05/11 Specimen Type: BLOOD No comment entered. Ordering Provider: MARGO CANSECO Report Released Date/Time: May 10, 2024 07:15 PM Reporting Lab: [facility] [address] Performing Lab: [facility] [address] [facility] CBC PLATELETS RETICULATE D/100 PLATELETS IN BLOOD BY AUTOMATED COUNT 5.6 0 - 10 05/11 Specimen Type: BLOOD No comment entered. Ordering Provider: MARGO CANSECO Report Released Date/Time: May 10, 2024 07:15 PM Reporting Lab: [facility] [address] Performing Lab: [facility] [address] [facility] ALBUMIN ALBUMIN [MASS/VOLU ME] IN SERUM OR PLASMA 3.7 g/dL 3.5 - 5.0 05/11 Specimen Type: PLASMA No comment entered. Ordering Provider: MARGO CANSECO Report Released Date/Time: May 10, 2024 07:15 PM Reporting Lab: [facility] [address] Performing Lab: [facility] [address] [facility] COMPREHE NSIVE METABOLI C PANEL+MG CREATININE [MASS/VOLU ME] IN SERUM OR PLASMA 0.8 mg/dL 0.7 - 1.2 05/11 Specimen Type: PLASMA No comment entered. Ordering Provider: MARGO CANSECO Report Released Date/Time: May 10, 2024 07:15 PM Reporting Lab: [facility] [address] Performing Lab: [facility] [address] [facility] COMPREHE NSIVE METABOLI C PANEL+MG UREA NITROGEN [MASS/VOLU ME] IN SERUM OR PLASMA 11 mg/dL 8 - 26 05/11 Specimen Type: PLASMA No comment entered. Ordering Provider: MARGO CANSECO Report Released Date/Time: May 10, 2024 07:15 PM Reporting Lab: [facility] [address] Performing Lab: [facility] [address] [facility] COMPREHE NSIVE METABOLI C PANEL+MG GLUCOSE [MASS/VOLU ME] IN SERUM OR PLASMA 123 mg/dL 70 - 100 05/11 H Specimen Type: PLASMA No comment entered. Ordering Provider: MARGO CANSECO Report Released Date/Time: May 10, 2024 07:15 PM Reporting Lab: [facility] [address] Performing Lab: [facility] [address] [facility] COMPREHE NSIVE METABOLI C PANEL+MG SODIUM [MOLES/VOL UME] IN SERUM OR PLASMA 135 mmol/L 136 - 145 05/11 L Specimen Type: PLASMA No comment entered. Ordering Provider: MARGO CANSECO Report Released Date/Time: May 10, 2024 07:15 PM Reporting Lab: [facility] [address] Performing Lab: [facility] [address] [facility] COMPREHE NSIVE METABOLI C PANEL+MG POTASSIUM [MOLES/VOL UME] IN SERUM OR PLASMA 3.4 mmol/L 3.5 - 5.1 05/11 L Specimen Type: PLASMA No comment entered. Ordering Provider: MARGO CANSECO Report Released Date/Time: May 10, 2024 07:15 PM Reporting Lab: [facility] [address] Performing Lab: [facility] [address] [facility] COMPREHE NSIVE METABOLI C PANEL+MG CHLORIDE [MOLES/VOL UME] IN SERUM OR PLASMA 97 mmol/L 98 - 107 05/11 L Specimen Type: PLASMA No comment entered. Ordering Provider: MARGO CANSECO Report Released Date/Time: May 10, 2024 07:15 PM Reporting Lab: [facility] [address] Performing Lab: [facility] [address] [facility] COMPREHE NSIVE METABOLI C PANEL+MG CARBON DIOXIDE, TOTAL [MOLES/VOL UME] IN SERUM OR PLASMA 29 mmol/L 22 - 29 05/11 Specimen Type: PLASMA No comment entered. Ordering Provider: MARGO CANSECO Report Released Date/Time: May 10, 2024 07:15 PM Reporting Lab: [facility] [address] Performing Lab: [facility] [address] [facility] COMPREHE NSIVE METABOLI C PANEL+MG CALCIUM [MASS/VOLU ME] IN SERUM OR PLASMA 8.3 mg/dL 8.4 - 10.2 05/11 L Specimen Type: PLASMA No comment entered. Ordering Provider: MARGO CANSECO Report Released Date/Time: May 10, 2024 07:15 PM Reporting Lab: [facility] [address] Performing Lab: [facility] [address] [facility] COMPREHE NSIVE METABOLI C PANEL+MG PROTEIN [MASS/VOLU ME] IN SERUM OR PLASMA 6.0 g/dL 6.4 - 8.3 05/11 L Specimen Type: PLASMA No comment entered. Ordering Provider: MARGO CANSECO Report Released Date/Time: May 10, 2024 07:15 PM Reporting Lab: [facility] [address] Performing Lab: [facility] [address] [facility] COMPREHE NSIVE METABOLI C PANEL+MG ALBUMIN [MASS/VOLU ME] IN SERUM OR PLASMA 3.7 g/dL 3.5 - 5.0 05/11 Specimen Type: PLASMA No comment entered. Ordering Provider: MARGO CANSECO Report Released Date/Time: May 10, 2024 07:15 PM Reporting Lab: [facility] [address] Performing Lab: [facility] [address] [facility] COMPREHE NSIVE METABOLI C PANEL+MG BILIRUBIN. TOTAL [MASS/VOLU ME] IN SERUM OR PLASMA 1.3 mg/dL 0.2 - 1.2 05/11 H Specimen Type: PLASMA No comment entered. Ordering Provider: MARGO CANSECO Report Released Date/Time: May 10, 2024 07:15 PM Reporting Lab: [facility] [address] Performing Lab: [facility] [address] [facility] COMPREHE NSIVE METABOLI C PANEL+MG MAGNESIUM [MASS/VOLU ME] IN SERUM OR PLASMA 1.4 mg/dL 1.6 - 2.6 05/11 L Specimen Type: PLASMA No comment entered. Ordering Provider: MARGO CANSECO Report Released Date/Time: May 10, 2024 07:15 PM Reporting Lab: [facility] [address] Performing Lab: [facility] [address] [facility] COMPREHE NSIVE METABOLI C PANEL+MG ANION GAP IN SERUM OR PLASMA 9 mmol/L 5 - 15 05/11 Specimen Type: PLASMA No comment entered. Ordering Provider: MARGO CANSECO Report Released Date/Time: May 10, 2024 07:15 PM Reporting Lab: [facility] [address] Performing Lab: [facility] [address] [facility] COMPREHE NSIVE METABOLI C PANEL+MG ALKALINE PHOSPHATAS E [ENZYMATIC ACTIVITY/V OLUME] IN SERUM OR PLASMA 55 U/L 40 - 150 05/11 Specimen Type: PLASMA No comment entered. Ordering Provider: MARGO CANSECO Report Released Date/Time: May 10, 2024 07:15 PM Reporting Lab: [facility] [address] Performing Lab: [facility] [address] [facility] COMPREHE NSIVE METABOLI C PANEL+MG ALANINE AMINOTRANS FERASE [ENZYMATIC ACTIVITY/V OLUME] IN SERUM OR PLASMA 31 U/L <44 - 44 05/11 Specimen Type: PLASMA No comment entered. Ordering Provider: MARGO CANSECO Report Released Date/Time: May 10, 2024 07:15 PM Reporting Lab: [facility] [address] Performing Lab: [facility] [address] [facility] COMPREHE NSIVE METABOLI C PANEL+MG ASPARTATE AMINOTRANS FERASE [ENZYMATIC ACTIVITY/V OLUME] IN SERUM OR PLASMA 53 U/L 11 - 34 05/11 H Specimen Type: PLASMA No comment entered. Ordering Provider: MARGO CANSECO Report Released Date/Time: May 10, 2024 07:15 PM Reporting Lab: [facility] [address] Performing Lab: [address] [facility] COMPREHE NSIVE METABOLI C PANEL+MG GLOMERULAR FILTRATION RATE/1.73 SQ M.PREDICTE D [VOLUME RATE/AREA] IN SERUM, PLASMA OR BLOOD BY CREATININE -BASED FORMULA (CKD-EPI 2020) >90 60 05/11 Specimen Type: PLASMA No comment entered. Ordering Provider: MARGO CANSECO Report Released Date/Time: May 10, 2024 07:15 PM Reporting Lab: [facility] [address] Performing Lab: [facility] [address] [facility] COMPREHE NSIVE METABOLI C PANEL+MG BILIRUBIN. DIRECT [MASS/VOLU ME] IN SERUM OR PLASMA 0.5 mg/dL <0.5 - 0.5 05/11 Specimen Type: PLASMA No comment entered. Ordering Provider: MARGO CANSECO Report Released Date/Time: May 10, 2024 07:15 PM Reporting Lab: [facility] [address] Performing Lab: [facility] [address] [facility] PHOSPHOR US PHOSPHATE [MASS/VOLU ME] IN SERUM OR PLASMA 2.6 mg/dL 2.3 - 4.3 05/11 Specimen Type: PLASMA No comment entered. Ordering Provider: MARGO CANSECO Report Released Date/Time: May 10, 2024 08:52 PM Reporting Lab: [facility] [address] Performing Lab: [facility] [address] [facility] S[facility]EN PANEL,UR INE BARBITURAT ES [PRESENCE] IN URINE BY SCREEN METHOD Negative 05/10 Specimen Type: URINE Comment: Presumptive Positive by screen, results not confirmed. Glucose present in urine. No yeast detected. Ordering Provider: MARGO CANSECO Report Released Date/Time: May 10, 2024 07:15 PM Reporting Lab: [facility] [address] Performing Lab: [facility] [address] [facility] S[facility]EN PANEL,UR INE AMPHETAMIN ES [PRESENCE] IN URINE Negative 05/10 Specimen Type: URINE Comment: Presumptive Positive by screen, results not confirmed. Glucose present in urine. No yeast detected. Ordering Provider: MARGO CANSECO Report Released Date/Time: May 10, 2024 07:15 PM Reporting Lab: [facility] [address] Performing Lab: [facility] [address] [facility] S[facility]EN PANEL,UR INE COCAINE [PRESENCE] IN URINE Negative 05/10 Specimen Type: URINE Comment: Presumptive Positive by screen, results not confirmed. Glucose present in urine. No yeast detected. Ordering Provider: MARGO CANSECO Report Released Date/Time: May 10, 2024 07:15 PM Reporting Lab: [facility] [address] Performing Lab: [facility] [address] [facility] S[facility]EN PANEL,UR INE BENZODIAZE PINES [PRESENCE] IN URINE BY SCREEN METHOD Negative 05/10 Specimen Type: URINE Comment: Presumptive Positive by screen, results not confirmed. Glucose present in urine. No yeast detected. Ordering Provider: MARGO CANSECO Report Released Date/Time: May 10, 2024 07:15 PM Reporting Lab: [facility] [address] Performing Lab: [facility] [address] [facility] S[facility]EN PANEL,UR INE CANNABINOI DS [PRESENCE] IN URINE BY SCREEN METHOD POSITIVE 05/10 H Specimen Type: URINE Comment: Presumptive Positive by screen, results not confirmed. Glucose present in urine. No yeast detected. Ordering Provider: MARGO CANSECO Report Released Date/Time: May 10, 2024 07:15 PM Reporting Lab: [facility] [address] Performing Lab: [facility] [address] [facility] S[facility]EN PANEL,UR INE METHADONE [PRESENCE] IN URINE Negative 05/10 Specimen Type: URINE Comment: Presumptive Positive by screen, results not confirmed. Glucose present in urine. No yeast detected. Ordering Provider: MARGO CANSECO Report Released Date/Time: May 10, 2024 07:15 PM Reporting Lab: [place] [address] Performing Lab: [place] [id number] [facility] S[facility]EN PANEL,UR INE OPIATES [PRESENCE] IN URINE BY SCREEN METHOD Negative 05/10 Specimen Type: URINE Comment: Presumptive Positive by screen, results not confirmed. Glucose present in urine. No yeast detected. Ordering Provider: MARGO CANSECO Report Released Date/Time: May 10, 2024 07:15 PM Reporting Lab: [facility] [address] Performing Lab: [place] [phone] [facility] S[facility]EN PANEL,UR INE PHENCYCLID INE [PRESENCE] IN URINE Negative 05/10 Specimen Type: URINE Comment: Presumptive Positive by screen, results not confirmed. Glucose present in urine. No yeast detected. Ordering Provider: MARGO CANSECO Report Released Date/Time: May 10, 2024 07:15 PM Reporting Lab: [facility] [address] Performing Lab: [facility] [address] [facility] S[facility]EN PANEL,UR INE ETHANOL [MASS/VOLU ME] IN URINE POSITIVE 05/10 H Specimen Type: URINE Comment: Presumptive Positive by screen, results not confirmed. Glucose present in urine. No yeast detected. Ordering Provider: MARGO CANSECO Report Released Date/Time: May 10, 2024 07:15 PM Reporting Lab: [facility] [address] Performing Lab: [facility] [address] [facility] S[facility]EN PANEL,UR INE CREATININE [MASS/VOLU ME] IN URINE 298.7 mg/dL 20.0 05/10 Specimen Type: URINE Comment: Presumptive Positive by screen, results not confirmed. Glucose present in urine. No yeast detected. Ordering Provider: MARGO CANSECO Report Released Date/Time: May 10, 2024 07:15 PM Reporting Lab: [facility] [address] Performing Lab: [facility] [address] [facility] DRUG SCREEN PANEL,UR INE OXYCODONE [PRESENCE] IN URINE BY SCREEN METHOD Negative 05/10 Specimen Type: URINE Comment: Presumptive Positive by screen, results not confirmed. Glucose present in urine. No yeast detected. Ordering Provider: MARGO CANSECO Report Released Date/Time: May 10, 2024 07:15 PM Reporting Lab: [facility] [address] Performing Lab: [facility] [address] [facility],UR INE BUPRENORPH INE+NORBUP RENORPHINE [PRESENCE] IN URINE Negative 05/10 Specimen Type: URINE Comment: Presumptive Positive by screen, results not confirmed. Glucose present in urine. No yeast detected. Ordering Provider: MARGO CANSECO Report Released Date/Time: May 10, 2024 07:15 PM Reporting Lab: [facility] [address] Performing Lab: [facility] [address] [facility] S[facility],UR INE TRAMADOL CUTOFF [MASS/VOLU ME] IN URINE FOR SCREEN METHOD Negative 05/10 Specimen Type: URINE Comment: Presumptive Positive by screen, results not confirmed. Glucose present in urine. No yeast detected. Ordering Provider: MARGO CANSECO Report Released Date/Time: May 10, 2024 07:15 PM Reporting Lab: [facility] [address] Performing Lab: [facility] [address] [facility] DRUG SCREEN PANEL,UR INE FENTANYL [PRESENCE] IN URINE Negative 05/10 Specimen Type: URINE Comment: Presumptive Positive by screen, results not confirmed. Glucose present in urine. No yeast detected. Ordering Provider: MARGO CANSECO Report Released Date/Time: May 10, 2024 07:15 PM Reporting Lab: [facility] [address] Performing Lab: [facility] [address] [facility] DRUG SCREEN PANEL,UR INE GLUCOSE [MASS/VOLU ME] IN URINE POSITIVE 05/10 Specimen Type: URINE Comment: Presumptive Positive by screen, results not confirmed. Glucose present in urine. No yeast detected. Ordering Provider: MARGO CANSECO Report Released Date/Time: May 10, 2024 07:15 PM Reporting Lab: [facility] [address] Performing Lab: [facility] [address] [facility] Vital Signs Combined list of inpatient and outpatient Vital Signs from Department of Defense and Veterans Affairs, ranging from 12 months to all on record, depending upon the facility. Vital Sign Value Date Comments Source SYSTOLIC BLOOD PRESSURE 122 07/18/2024 10:22:21 [facility] DIASTOLIC BLOOD PRESSURE 83 07/18/2024 10:22:21 [facility] PULSE OXIMETRY 96 07/18/2024 10:22:21 [facility] [...] [facility] SYSTOLIC BLOOD PRESSURE 107 05/11/2024 00:58:00 [facility] DIASTOLIC BLOOD PRESSURE 66 05/11/2024 00:58:00 [facility] PULSE OXIMETRY 93 05/11/2024 00:58:00 [facility] PAIN 8 05/11/2024 00:58:00 [facility] TEMPERATURE 98.0 05/11/2024 00:58:00 [facility] PULSE 94 05/11/2024 00:58:00 [facility] RESPIRATION 20 05/11/2024 00:58:00 [facility] SYSTOLIC BLOOD PRESSURE 125 05/10/2024 15:43:00 [facility] DIASTOLIC BLOOD PRESSURE 81 05/10/2024 15:43:00 [facility] PULSE OXIMETRY 96 05/10/2024 15:43:00 [facility] PAIN 7 05/10/2024 15:43:00 [facility] RESPIRATION 16 05/10/2024 15:43:00 [facility] SYSTOLIC BLOOD PRESSURE 142 05/05/2024 14:57:24 [facility] DIASTOLIC BLOOD PRESSURE 89 05/05/2024 14:57:24 [facility] PULSE OXIMETRY 94 05/05/2024 14:57:24 [facility] PAIN 0 05/05/2024 14:57:24 [facility] TEMPERATURE 98.3 05/05/2024 14:57:24 [facility] PULSE 111 05/05/2024 14:57:24 [facility] RESPIRATION 16 05/05/2024 14:57:24 [facility] SYSTOLIC BLOOD PRESSURE 116 03/07/2024 00:26:00 [facility] DIASTOLIC BLOOD PRESSURE 72 03/07/2024 00:26:00 [facility] PULSE OXIMETRY 96 03/07/2024 00:26:00 [facility] PAIN 0 03/07/2024 00:26:00 [facility] TEMPERATURE 98.1 03/07/2024 00:26:00 [facility] PULSE 70 03/07/2024 00:26:00 [facility] RESPIRATION 18 03/07/2024 00:26:00 [facility] Encounters Combined list of: 1) Encounters from [facility] facilities going backup to the last 18 months, not all [facility] inpatient encounters are included; 2) Encounters from the [facility] facilities going backup to 280 months. Location Location Details Encounter Type Encounter Number Reason For Visit Attending Provider ADM Date DC Date Status Disposition Source [facility] Sick Call) OUTPATIENT [id number] cough x 4 days JAVIER BARRIENTOS 05/04 Sick at Home/Quarter s [facility] Rec[facility] Sick Call) [facility](MCR D Recruit Sick Call) OUTPATIENT [id number] P/U PNA MELISSA MENDEZ [place] 05/05 Sick at Home/Quarter s [facility] S[place]) [place] OUTPATIENT [id number] NILDA Holloway 07/18 Released w/o Limitations [place] [employer] [place] OUTPATIENT [id number] migrain es/vomi nting/S AC PRICILLA GALLEGO 09/19 Released w/o Limitations [place] OUTPATIENT [id number] sep GLADYS Campos 11/15 Released w/o Limitations [place] [place] OUTPATIENT [id number] eye exam TIMUR LOREDO 03/15 Released w/o Limitations [place] [facility] OUTPATIENT [id number] Annual GLADYS MARTINEZ 11/18 Released w/o Limitations [place] [place] [facility] OUTPATIENT [id number] Termina tion Audiogr am GLADYS MARTINEZ 08/03 Released w/o Limitations [place] [facility] [place] OUTPATIENT [id number] eye exam glasses KIMMY ROGERS V 11/03 Released w/o Limitations [facility] [place]([facility]) [facility]ATION 38066-5.65 [id number] Diagnos is: ICD-10- CM 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, recurre nt, moderat e CLEMENCIA,TA S 05/05 [facility] PSYCHOTHER APY 48162-2 [id number] Diagnos is: ICD-10- CM 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, recurre nt, moderat e GUNDERSON,KE LLY A 05/05 [facility] AP[facility] 32213-6 [id number] Diagnos is: ICD-10- CM 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, recurre nt, moderat e GUNDERSON,KE LLY A 05/05 [facility] AP[facility] 97191-6 [id number] Diagnos is: ICD-10- CM 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, recurre nt, moderat e HARSH-JER VILLEGAS 05/06 [facility]CH[facility] APY 34657-7 [id number] Diagnos is: ICD-10- CM 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, recurre nt, moderat e GUNDERSON,KE LLY A 05/06 [facility] FAC[facility] FEE 74035-6 [id number] Diagnos is: ICD-10- CM 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, recurre nt, moderat e JOHN RUSSELL 05/06 [facility] OFFICE O/P EST MOD 30-39 MIN 37477-4 [id number] Diagnos is: ICD-10- CM 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, recurre nt, moderat e JOHN RUSSELL 05/06 [facility] 54763-9.65 [id number] Diagnos is: ICD-10- CM 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, recurre nt, moderat e GUNDERSON,KE LLY A 05/06 [facility] Outpatient Encounter 29435-5 [id number] 05/06 [facility] Outpatient Encounter 41640-3 [id number] 05/06 [facility] 09661-5 [id number] Diagnos is: ICD-10- CM F10.10 Alcohol abuse, uncompl icated MARIA ELENA KHANNA RA 05/07 [facility] PS[facility]CH[facility] APY 30566-5 [id number] Diagnos is: ICD-10- CM 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, recurre nt, moderat e GUNDERSON,KE LLY A 05/07 [facility] PS[facility]CH[facility] APY 09361-7.65 [id number] Diagnos is: ICD-10- CM 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, recurre nt, moderat e GUNDERSON,KE LLY A 05/07 [facility] PSYCH[facility] APY 12339-1 [id number] Diagnos is: ICD-10- CM 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, recurre nt, moderat e GRAHEK-POR JER PEARCE 05/10 [facility] PSYCHOTHER APY 02565-3 [id number] Diagnos is: ICD-10- CM 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, recurre nt, moderat e GUNDERSON,KE LLY A 05/10 [facility] Outpatient Encounter [id number] [id number] 05/10 [facility] PSYCHOTHER APY 00803-4.65 [id number] Diagnos is: ICD-10- CM 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, recurre nt, moderat e GUNDERSON,KE LLY A 05/10 [facility] 20870-4.65 [id number] Diagnos is: ICD-10- CM F10.10 Alcohol abuse, uncompl icated MARIA ELENA KHANNA RA 05/11 [facility] PS[facility]CH[facility] APY 17375-2.65 [id number] Diagnos is: ICD-10- CM 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, recurre nt, moderat e GUNDERSON,JAMESON HUMPHRIESY A 05/11 [facility] OFFICE O/P EST LOW 20-29 MIN 10382-8.65 [id number] Diagnos is: ICD-10- CM K76.0 Fatty (change of) liver, not elsewhe re classif ied MIGNON BIRD 05/11 [facility] Outpatient Encounter 42928-2 [id number] 05/11 [facility] CASE MANAGEMENT 55194-7 [id number] Diagnos is: ICD-10- CM F10.129 Alcohol abuse with intoxic ation, unspeci fied FRANK CALDERON 05/11 [facility]AC[facility] FEE 90180-6 [id number] Diagnos is: ICD-10- CM F43.10 Post-tr aumatic stress disorde r, unspeci fied JRE HARRISON 05/11 [facility] 37514-3 [id number] Diagnos is: ICD-10- CM F10.10 Alcohol abuse, uncompl icated MARIA ELENA KHANNA RA S 05/12 [facility] PSYCHOTHER APY 26964-8.65 [id number] Diagnos is: ICD-10- CM 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, recurre nt, moderat e GUNDERSON,KE LLY A 05/12 [facility] PSYCHOTHER APY 67979-3 [id number] Diagnos is: ICD-10- CM 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, recurre nt, moderat e GUNDERSON,KE LLY A 05/12 [facility] SELF-HELP/ PEER SVC PER 15MIN 52951-8.65 [id number] Diagnos is: ICD-10- CM F10.20 Alcohol depende nce, uncompl icated PJ CALL PH M 05/12 [facility] Outpatient Encounter 12406-2.65 [id number] 05/12 [facility] PS[facility]CH[facility] APY 48381-4.65 [id number] Diagnos is: ICD-10- CM 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, recurre nt, moderat e GRAHEK-POR KKONESourav,JER ARANDA J 05/13 [facility] PSYCHOTHER APY 86190-2 [id number] Diagnos is: ICD-10- CM 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, recurre nt, moderat e GUNDERSON,KE LLY A 05/13 [facility] PSYTX W PT 45 MINUTES 70327-3.65 [id number] Diagnos is: ICD-10- CM 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, recurre nt, moderat e GRAHEK-POR KKONEN,JER MANOJ J 05/13 [facility] PSYCH[facility] APY 59489-5 [id number] Diagnos is: ICD-10- CM 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, recurre nt, moderat e GUNDERSONJAMESON A 05/13 [facility] PSYTX W PT 30 MINUTES 60765-8.65 [id number] Diagnos is: ICD-10- CM F41.9 Anxiety disorde r, unspeci fied GUNDERSONJAMESON A 05/13 [facility] Outpatient Encounter 84992-3.65 [id number] MARIA ELENA KHANNA RA S 05/14 [facility] Outpatient Encounter 89543-7.65 [id number] 05/14 [facility] Outpatient Encounter 22185-6.61 [id number] 05/14 [facility] Outpatient Encounter 05937-8.65 [id number] 05/18 [facility] Outpatient Encounter 50971-8.65 [id number] 05/19 [facility] PSYTX W PT 45 MINUTES 53116-7.61 [id number] Diagnos is: ICD-10- CM F33.8 Other recurre nt depress laurel disorde rs FRANK CALDERON 05/20 [facility] Outpatient Encounter 15562-8.65 [id number] 05/21 [facility]P EST MOD 30-39 MIN 06049-0.61 [id number] Diagnos is: ICD-10- CM F33.8 Other recurre nt depress laurel disorde rs AGUSTIN MATIAS 05/26 [facility] Outpatient Encounter 93586-8.61 [id number] 05/27 [facility] Outpatient Encounter 44724-5.61 [id number] 06/07 [place] [facility] Encounter 49638-1.61 [id number] 06/11 [facility] Out[facility] Encounter 67468-2.61 [id number] [place] YANCEY 06/16 [facility] Out[facility] Encounter 94396-5.61 [id number] 06/17 [facility] PSYTX W PT 45 MINUTES 90932-5.61 [id number] Diagnos is: ICD-10- CM F33.8 Other recurre nt depress laurel disorde rs FRANK CALDERON 06/17 [facility] PSYTX W PT 45 MINUTES 78402-7.61 [id number] Diagnos is: ICD-10- CM F10.20 Alcohol depende nce, uncompl icated FRANK CALDERON 06/22 [facility] PSY[facility] W PT W E/M 30 MIN 89957-7.61 [id number] Diagnos is: ICD-10- CM F33.8 Other recurre nt depress laurel disorde rs AGUSTIN MATIAS E E 06[facility]23 [facility] Outpatient Encounter 71284-7.65 [id number] 06/25 [facility] Out[facility]counter 51025-3.61 [id number] 07/01 [place] [facility] Encounter 07874-0.61 [id number] 07/01 [facility] Out[facility] Encounter 65157-5.61 [id number] 07/01 [facility] Out[facility] Encounter 52832-1.61 [id number] 07/01 [place] [facility] QNHP OL DIG ASSMT&MGMT 21+ 28876-2.61 [id number] Diagnos is: ICD-10- CM Z13.79 Encntr for oth screeni ng for genetic and chromso ml anomali samuel DOKEO 07/02 [facility] PSYTX W PT 45 MINUTES 48191-6.61 [id number] Diagnos is: ICD-10- CM F10.20 Alcohol depende nce, uncompl icated ALEK-FRANK HAAS 07/05 [facility] Out[facility] Encounter 80208-7.61 [id number] 07/05 [facility] Out[facility] Encounter 37117-4.61 [id number] 07/05 [facility] Out[facility] Encounter 34370-8.61 [id number] [place] YANCEY 07/13 [facility] Outpatient Encounter 63811-9.61 [id number] 07/14 [facility] Outpatient Encounter 13836-1.61 [id number] 07/21 [facility] Out[facility] Encounter 47669-5.61 [id number] DICK JUNG 07/22 [facility] Outpatient Encounter 89188-2.61 [id number] 07/23 [facility] Outpatient Encounter 23870-9.61 [id number] RENZO,LOR -ARK 07/24 [facility] 1ST HOSP IP/OBS HIGH 75 56559-0.61 [id number] Diagnos is: ICD-10- CM F43.10 Post-tr aumatic stress disorde r, unspeci MAGGIE Smith 07/24 [facility] EMERGENCY DEPT VISIT MOD MDM 39363-7.61 [id number] Diagnos is: ICD-10- CM F10.20 Alcohol depende nce, uncompl icated SE ISRAEL ALETA 07/24 [facility] HOSP IP/OBS HIGH 75 03383-1.61 [id number] Diagnos is: ICD-10- CM F43.10 Post-tr aumatic stress disorde r, unspeci fied MAGGIE LOGAN ATHER E 07/24 [facility] Detoxifica tion Services for Substance Abuse Treatment 11544-0.61 [id number] Admit Reason: ETOH S/I TEAM,MED TWO 07/24 Regular discharge from inpatient treatment. [facility] HOSP IP/OBS MODERATE 55 90454-3.61 [id number] JANA MANZANARES 07/24 [facility] Inpatient Encounter [id number] [id number] 07/24 [facility] Inpatient Encounter [id number] [id number] JAKUB BRISENO 07/24 [facility] QNHP OL DIG ASSMT&MGMT 11-20 93762-3.61 [id number] Diagnos is: ICD-10- CM Z72.0 Tobacco use ISH POLANCO 07/24 [facility] Inpatient Encounter 49800-3.61 [id number] JAKUB BRISENO 07/24 [facility] Inpatient Encounter 52579-4.61 [id number] LOR MULLER -MINESH 07/25 [facility] Encounter 55789-5.61 [id number] Sourav DE LEÓN 07/25 [facility] Inpatient Encounter 81780-3.61 [id number] KATRADUSourav Montemayor 07/25 [facility] Outpatient Encounter [id number] [id number] BILL RO 07/25 [facility] HOS[facility] IP/OBS MODERATE 55 51104-5.61 [id number] Diagnos is: ICD-10- CM F43.10 Post-tr aumatic stress disorde r, unspeci fiBILL Ortiz 07/25 [facility] Inpatient Encounter 70524-2.61 [id number] 07/25 [facility] In[facility] Encounter 48791-9.61 [id number] 07/25 [facility] HOSP IP/OBS DSCHRG MGMT >30 32375-4.61 [id number] JANA MANZANARES 07/25 [place] [facility] In[facility] Encounter [id number] [id number] 07/25 [place] [facility] Out[facility]counter [id number] [id number] 07/27 [place] [facility] Out[facility] Encounter [id number] [id number] 07/27 [place] [facility] [place] [facility] PRO PHONE CALL 5-10 MIN 68508-4.61 [id number] Diagnos is: ICD-10- CM F43.10 Post-tr aumatic stress disorde r, unspeci JANA Welch 07/28 [facility] Outpatient Encounter [id number] [id number] 07/28 [place] [facility] Out[facility] Encounter 42559-6.61 [id number] 07/29 [facility] [place] [facility] PSYTX W PT 45 MINUTES 59551-6.61 [id number] Diagnos is: ICD-10- CM F10.20 Alcohol depende nce, uncompl icated FRANK CALDERON 08/02 [place] [facility] Out[facility] Encounter [id number] [id number] 08/04 [place] [facility] Out[facility] Encounter 55470-7.61 [id number] 08/10 [place] [facility] Out[facility] Encounter 76595-4.61 [id number] 08/15 [facility] Encounter [id number] [id number] ANYI HERNANDEZ 08/18 [facility] [place] [facility] Out[facility] Encounter [id number] [id number] 08/22 [facility] Out[facility] Encounter 59488-5.61 [id number] [place] YANCEY 08/22 [facility] PRO PHONE CALL 5-10 MIN 51242-2.61 [id number] Diagnos is: ICD-10- CM F43.10 Post-tr aumatic stress disorde r, unspeci JANA Welch 08/23 [facility] Encounter [id number] [id number] 08/24 [place] [facility] Encounter 37828-3.61 [id number] MARIA G DOMINGO 08/25 [facility] Out[facility] Encounter [id number] [id number] VANDA MCGREGOR 08/26 [facility] Encounter [id number] [id number] VANDA MCGREGOR 08/26 [place] [facility] Out[facility] Encounter [id number] [id number] 08/26 [place] [facility] Out[facility]counter [id number] [id number] AGUSTIN MATIAS 09/12 [place] [facility] Encounter [id number] [id number] 09/12 [place] [facility] Outpatient Encounter [id number] [id number] [place] YANCEY 09/16 [facility] [place] [facility] Out[facility] Encounter [id number] [id number] JAMAICA BOYER 09/23 [facility] Encounter [id number] [id number] 09/26 [facility] [place] [facility] Out[facility] Encounter [id number] [id number] 09/28 [facility] OFF[facility] O/P EST MOD 30 MIN 62074-7.61 [id number] Diagnos is: ICD-10- CM F10.129 Alcohol abuse with intoxic ation, unspeci fied AGUSTIN MATIAS 09/29 [facility] Out[facility] Encounter [id number] [id number] 09/30 [facility] Out[facility] Encounter [id number] [id number] CELESTINE,OM YUKO 10/10 [facility] Outpatient Encounter [id number] [id number] 10/15 [facility] NURSING ASSESSMENT /EVALUATN 55294-6.65 [id number] Diagnos is: ICD-10- CM F10.10 Alcohol abuse, uncompl icated HILARY KUMAR 10/15 [facility] Outpatient Encounter [id number] [id number] 10/16 [facility] Outpatient Encounter 39826-6.65 [id number] Diagnos is: ICD-10- CM F10.10 Alcohol abuse, uncompl icated MIKA ROMERO CA A 10/16 [facility] Detoxifica tion Services for Substance Abuse Treatment 34448-1.65 [id number] Admit Reason: DETOX ASHLEY ALARCON 10/16 Discharge from inpatient treatment to the [facility] Inpatient Encounter 23354-5.65 [id number] 10/16 [facility] Inpatient Encounter [id number] [id number] 10/16 [facility] 1ST HOSP IP/OBS MODERATE 55 52758-5.65 [id number] Diagnos is: ICD-10- CM F10.10 Alcohol abuse, uncompl icated MIKA ROMERO CA A 10/16 [facility] Inpatient Encounter 13850-4.65 [id number] 10/16 [facility] Inpatient Encounter 96487-4.65 [id number] 10/16 [facility] TELE[facility]ALTH FACILITY FEE 15266-5.65 [id number] Diagnos is: ICD-10- CM F90.9 Attenti on-defi cit hyperac tivity disorde r, unspeci fied type BITNER,HUB ERT P 10/16 [facility] 1ST HOSP IP/OBS HIGH 75 40780-8.65 [id number] Diagnos is: ICD-10- CM F90.9 Attenti on-defi cit hyperac tivity disorde r, unspeci fied type BITNER,HUB ERT P 10/16 [facility] ACCESS CLINICIAN ASSESSMENT 22002-0.65 [id number] Diagnos is: ICD-10- CM Z71.81 Spiritu al or 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 debt 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 budget counselor JOYA Thomas 10/16 [facility] SELF-HELP/ PEER SVC PER 15MIN 07718-6.65 [id number] Diagnos is: ICD-10- CM 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, recurre nt, moderat Johana Cantu M 10/17 [facility] QNHP OL DIG ASSMT&MGMT 04-26 38437-5.65 [id number] Diagnos is: ICD-10- CM 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, recurre nt, moderat NAYAN Haynes J 10/17 [facility] FEE 73260-365 [id number] Diagnos is: ICD-10- CM F10.20 Alcohol depende nce, uncompl icaJOHN Gutiérrez 10/17 [facility] SBSQ HOSP IP/OBS HIGH 50 04104-6.65 [id number] Diagnos is: ICD-10- CM F10.20 Alcohol depende nce, uncompl JOHN Garcia 10/17 [facility] SELF-HELP/ PEER SVC PER 15MIN 52163-0.65 [id number] Diagnos is: ICD-10- CM 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, recurre nt, laurenat Johana Cantu 10/17 [facility] GROUP THERAPEUTI C PROCEDURES 60500-2.65 [id number] Diagnos is: ICD-10- CM Z72.89 Other problem s related to lifesty GARETT Wang 10/17 [facility] ECG/REVIEW INTERPRET ONLY 50497-6.65 [id number] Diagnos is: ICD-10- CM Z13.6 Encount er for screeni ng for cardiov ascular disorde rs MAO SEXTON L 10/17 [facility] Inpatient Encounter 87342-6.65 [id number] 10/17 [facility] SELF-HELP/ PEER SVC PER 15MIN 04225-9.65 [id number] Diagnos is: ICD-10- CM 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, recurre nt, moderat Johana Cantu 10/18 [facility] FAC[facility] FEE 30381-265 [id number] Diagnos is: ICD-10- CM F10.10 Alcohol abuse, uncompl icated RAUL GIMENEZ MARGUERITE 10/18 [facility] SBSQ HOSP IP/OBS SF/LOW 25 99327-9.65 [id number] Diagnos is: ICD-10- CM F10.10 Alcohol abuse, uncompl icated RAUL GIMENEZ EMI MARGUERITE 10/18 [facility] PSYTX W PT 30 MINUTES 61807-1.65 [id number] Diagnos is: ICD-10- CM F43.10 Post-tr aumatic stress disorde r, unspeci fied GRUPO BARROS A 10/18 [facility] PSYCH DIAGNOSTIC EVALUATION 56789-6.65 [id number] Diagnos is: ICD-10- CM F43.10 Post-tr aumatic stress disorde r, unspeci fied STAKIMBERLEYMO SONIDO A 10/18 [facility] HOSP IP/OBS DSCHRG MGMT 30/< 46231-9.65 [id number] Diagnos is: ICD-10- CM 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, recurre nt, moderat DAYTON Mckeon 10/18 [facility] Inpatient Encounter 06281-2.65 [id number] 10/18 [facility] Inpatient Encounter 98017-5.65 [id number] 10/18 [facility] QNHP OL DIG ASSMT&MGMT 11-20 17161-6.65 [id number] Diagnos is: ICD-10- CM 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, recurre nt, moderat NAYAN Haynes 10/18 [facility] Inpatient Encounter 15291-6.65 [id number] 10/18 [facility] GROUP PSYCHOTHER APY [id number] [id number] Diagnos is: ICD-10- CM F43.10 Post-tr aumatic stress disorde r, unspeci Ellie Bello 10/18 [facility] Outpatient Encounter [id number] ASHLEY ALARCON 10/18 [facility] Outpatient Encounter [id number] 10/18 [facility] Outpatient Encounter [id number] 10/18 [facility] PSY EVALUATION OF RECORDS [id number] [id number] Diagnos is: ICD-10- CM 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, recurre nt, moderat MARCO Simpson 10/19 [facility] Outpatient Encounter [id number] Johnny OSORIO 10/19 [facility] En[facility] [id number] 10/19 [facility] OFFICE O/P EST MOD 30 MIN [id number] [id number] Diagnos is: ICD-10- CM F10.20 Alcohol depende nce, uncompl icated AGUSTIN MATIAS 10/21 [facility] HC PRO PHONE CALL 5-10 MIN [id number] Diagnos is: ICD-10- CM F10.10 Alcohol abuse, uncompl icated MANOHAR TONYA Stu 10/21 [facility] Outpatient Encounter [id number] 10/25 [facility] Outpatient Encounter [id number] 10/25 [facility] Outpatient Encounter [id number] [id number] JESUS YOST 10/25 [facility] HC PRO PHONE CALL 5-10 MIN [id number] [id number] Diagnos is: ICD-10- CM 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, recurre nt, moderat MARCO Simpson 10/26 [facility] HC PRO PHONE CALL 5-10 MIN [id number] [id number] Diagnos is: ICD-10- CM F10.10 Alcohol abuse, uncompl icaMARCO Adams 10/27 [facility] Outpatient Encounter [id number] 10/28 [facility] Outpatient Encounter [id number] [id number] 10/28 [facility] Outpatient Encounter [id number] [id number] 10/28 [facility] HC PRO PHONE CALL 5-10 MIN [id number] [id number] Diagnos is: ICD-10- CM 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, recurre nt, moderat e JVAY,GRUPO LEE C 10/28 [facility] [place] Encounter [id number] SA RA Albina CHESTER 10/30 [facility] Outpatient Encounter [id number] [id number] 11/02 [facility] Outpatient Encounter [id number] 11/03 [facility] SELF-HELP/ PEER SVC PER 15MIN [id number] [id number] Diagnos is: ICD-10- CM F10.129 Alcohol abuse with intoxic ation, unspeci PAUL Sharpe 11/04 [facility] Outpatient Encounter [id number] [id number] 11/04 [facility] Outpatient Encounter [id number] [id number] 11/07 [facility] [place] Encounter [id number] [id number] 12/06 [facility] [place] [facility] En[facility] [id number] [id number] 12/07 [facility] [place] Out[facility] Encounter [id number] AGUSTIN MATIAS 12/15 [facility] [place] Encounter [id number] 12/27 [place] [facility] Outpatient Encounter [id number] CARLITOS CHESTER SA 12/27 [place] [facility] Out[facility] Encounter [id number] 12/28 [facility] Encounter [id number] 01/12 [place] [facility] Out[facility] Encounter [id number] [id number] 01/12 [facility] Outpatient Encounter [id number] IVAN WHITMAN 02/08 [facility] Outpatient Encounter [id number] 02/28 [facility] Outpatient Encounter [id number] 03/03 [facility] Outpatient Encounter [id number] SYSTEM,CIS -ARK 03/05 [facility] Outpatient Encounter [id number] SYSTEM,CIS -ARK 03/05 [facility] Outpatient Encounter [id number] ARCELIA CHONG 03/05 [facility] EMERGENCY DEPT VISIT MOD MDM [id number] [id number] Diagnos is: ICD-10- CM F10.129 Alcohol abuse with intoxic ation, unspeci fied MARIANNA LINDSEY 03/05 [facility] IP/OBS CONSLTJ NEW/EST HI 80 [id number] [id number] Diagnos is: ICD-10- CM F10.229 Alcohol depende nce with intoxic ation, unspeci fied DUMKE,HEAT HER SHAUNA 03/05 [facility] Detoxifica tion Services for Substance Abuse Treatment [id number] Admit Reason: ETOH,SI OMAR SOLO,SUCHAPA 03/06 Regular discharge [facility] inpatient treatment. [facility] [place] In[facility] Encounter [id number] SYSTEM,CIS -[facility] 03/06 [place] [facility] In[facility] Encounter [id number] 03/06 [place] [facility] [place] [facility] Inpatient Encounter [id number] [id number] 03/06 [place] [facility] In[facility] Encounter [id number] 03/06 [place] [facility] Inpatient Encounter [id number] 03/06 [place] [facility] [place] Inpatient [facility]counter [id number] 03/06 [facility] IP/OBS CNSLTJ NEW/EST MOD 60 [id number] Diagnos is: ICD-10- CM F10.20 Alcohol depende nce, uncompl icated Johnny TREVIÑO 03/06 [facility] [place] 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/ M [id number] [id number] Antonella CARPENTER 03/06 [facility] Inpatient Encounter [id number] 03/06 [facility] [place] [facility] Inpatient Encounter [id number] [id number] SYSTEM,CIS -ARK 03/07 [place] [facility] [place] [facility] Inpatient Encounter [id number] 03/07 [place] [facility] Inpatient Encounter [id number] [id number] 03/07 [facility] PROGRAM INTAKE ASSESSMENT [id number] Diagnos is: ICD-10- CM F43.10 Post-tr aumatic stress disorde r, unspeci fied ALPHONSO VILLATORO 03/07 [facility] PSYTX W PT 30 MINUTES [id number] [id number] Diagnos is: ICD-10- CM F10.20 Alcohol depende nce, uncompl icated APOORVA ASKEW 03/07 [facility] PROGRAM INTAKE ASSESSMENT [id number] Diagnos is: ICD-10- CM R45.851 Suicida l ideatio ns ALPHONSO VILLATORO 03/07 [facility] Outpatient Encounter [id number] [id number] ALPHONSO VILLATORO 03/07 [facility] Inpatient Encounter [id number] [id number] 03/07 [facility] Outpatient Encounter [id number] 03/07 [facility] Encounter [id number] [id number] 03/07 [facility] [place] [facility] In[facility] Encounter [id number] [id number] 03/07 [facility] Encounter [id number] [id number] 03/07 [facility] N[facility], [facility] PRO PHONE CALL 21-30 MIN [id number] [id number] Diagnos is: ICD-10- CM F10.20 Alcohol depende nce, uncompl icated RAMÓN SPRINGER 03/08 [facility] 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/ M [id number] [id number] Diagnos is: ICD-10- CM F43.10 Post-tr aumatic stress disorde r, unspeci fied ALPHONSO VILLATORO 03/08 [place] [facility] Outpatient Encounter [id number] Ping BAUTISTA 03/08 [place] [facility] Outpatient Encounter [id number] [id number] Diagnos is: ICD-10- CM F10.29 Alcohol depende nce with unspeci fied alcohol -induce d disorde r RAMANDEEP SQUIRES 03/08 [facility] Outpatient Encounter [id number] [id number] 03/10 [facility] 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/ M [id number] [id number] Diagnos is: ICD-10- CM F10.129 Alcohol abuse with intoxic ation, unspeci fied AGUSTIN MATIAS 03/13 [facility] PSYCH DIAGNOSTIC EVALUATION [id number] [id number] Diagnos is: ICD-10- CM F10.20 Alcohol depende nce, uncompl icaMARII Gonzales 03/14 [place] [facility] Outpatient Encounter [id number] [id number] ALPHONSO VILLATORO 03/14 [place] [facility] Encounter [id number] RADAMES YANG 03/15 [place] [facility] Encounter [id number] [id number] ALPHONSO VILLATORO 03/15 [facility] Outpatient Encounter [id number] [id number] RADAMES YANG 03/23 [facility] Outpatient Encounter [id number] [id number] SHAUANAMALIAAIMEE Argueta 03/23 [facility]AGNOSTIC EVALUATION [id number] [id number] Diagnos is: ICD-10- CM F43.10 Post-tr aumatic stress disorde r, unspeci fiLISA Thomas 03/23 [facility] Outpatient Encounter [id number] 03/24 [facility] SELF-HELP/ PEER SVC PER 15MIN [id number] [id number] Diagnos is: ICD-10- CM F43.10 Post-tr aumatic stress disorde r, unspeci fied GILMADELANEY EPH E 03/30 [facility] [place] [facility] SELF-HELP/ PEER SVC PER 15MIN [id number] [id number] Diagnos is: ICD-10- CM F33.8 Other recurre nt depress laurel disorde rs GILMADELANEY EPH E 04/03 [facility] 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/ M [id number] [id number] Diagnos is: ICD-10- CM F10.20 Alcohol depende nce, uncompl icated KATALINA RUCKER 04/07 [facility] Outpatient Encounter [id number] 04/07 [facility] [place] [facility] SELF-HELP/ PEER SVC PER 15MIN [id number] [id number] Diagnos is: ICD-10- CM F10.20 Alcohol depende nce, uncompl icated BECKA DILLARDS EPH E 04/13 [facility] SELF-HELP/ PEER SVC PER 15MIN [id number] [id number] Diagnos is: ICD-10- CM F10.20 Alcohol depende nce, uncompl icated BRIE MORA 04/13 [facility] PSYCH DIAGNOSTIC EVALUATION [id number] [id number] Diagnos is: ICD-10- CM F43.10 Post-tr aumatic stress disorde r, unspeci fied ABRAM BARNES 04/18 [facility] PROGRAM INTAKE ASSESSMENT [id number] Diagnos is: ICD-10- CM F43.10 Post-tr aumatic stress disorde r, unspeci fied ALPHONSO VILLATORO 04/20 [facility] Outpatient Encounter [id number] 04/21 [facility] Outpatient Encounter [id number] 04/24 [facility] Outpatient Encounter [id number] 04/25 [facility] PRO PHONE CALL 21-30 MIN [id number] Diagnos is: ICD-10- CM F43.10 Post-tr aumatic stress disorde r, unspeci fied LISA RODRIGUEZ 04/25 [facility] Outpatient Encounter [id number] JAYSHREE COOLEY 04/25 [facility] Outpatient Encounter [id number] 04/25 [facility] Outpatient Encounter [id number] Diagnos is: ICD-10- CM F10.129 Alcohol abuse with intoxic ation, unspeci AGUSTIN Holden 04/26 [facility] PRO PHONE CALL 21-30 MIN [id number] [id number] Diagnos is: ICD-10- CM F43.20 Adjustm ent disorde r, unspeci fied LISA RODRIGUEZ 04/27 [facility] Outpatient Encounter [id number] [id number] 05/01 [facility] PRO PHONE CALL 21-30 MIN [id number] [id number] Diagnos is: ICD-10- CM F10.20 Alcohol depende nce, uncompl icated LISA RODRIGUEZ 05/02 [facility] Outpatient Encounter [id number] [id number] ANYI HERNANDEZ 05/05 [facility] EMERGENCY DEPT VISIT LOW [facility] [id number] [id number] Diagnos is: ICD-10- CM S06.0XA A Concuss ion with LOC status unknown , initial encount er GIL HARPER 05/05 [facility] Outpatient Encounter [id number] [id number] SYSTEM,CIS -ARK 05/10 [facility] Outpatient Encounter [id number] [id number] 05/10 [facility] EM[facility]GENCY DEPT VISIT [facility] [id number] [id number] Diagnos is: ICD-10- CM F10.120 Alcohol abuse with intoxic ation, uncompl icated ISAIAS DAY N 05/10 [facility] Detoxifica tion Services for Substance Abuse Treatment 61441-961 [id number] Admit Reason: ETOH WITHDRA NAS MURILLO,MED ONE 05/10 Discharge from inpatient treatment against medical advise. [facility] Inpatient Encounter [id number] SYSTEM,CIS -ARK 05/11 [place] [facility] [place] [facility] Inpatient Encounter [id number] [id number] Johnny MARTE 05/11 [place] [facility] [place] [facility] Inpatient Encounter [id number] [id number] SYSTEM,CIS -ARK 05/11 [place] [facility] [place] [facility] Inpatient Encounter [id number] [id number] Johnny MARTE 05/11 [place] [facility] [place] [facility] Inpatient Encounter [id number] [id number] 05/11 [place] [facility] [place] [facility] Inpatient Encounter [id number] [id number] GUANAKO Galicia,MARILOU 05/11 [facility] [place] [facility] Inpatient Encounter [id number] [id number] HENRI CHESTER 05/11 [facility] [place] [facility] IP/OBS CONSLTJ NEW/EST SF 35 [id number] [id number] Diagnos is: ICD-10- CM F10.20 Alcohol depende nce, uncompl icated Johnny ZIMMERMAN 05/11 [facility] [place] [facility] Inpatient Encounter [id number] [id number] GUANAKO GaliciaMARILOU 05/11 [facility] [place] [facility] Inpatient Encounter [id number] [id number] Johnny ZIMMERMAN 05/11 [facility] [place] [facility] Inpatient Encounter [id number] [id number] Antonella MAYER 05/11 [facility] [place] [facility] Inpatient Encounter [id number] [id number] 05/11 [facility] Inpatient [facility]counter [id number] [id number] 05/11 [facility] Outpatient Encounter [id number] [id number] 05/12 [facility] Outpatient Encounter [id number] [id number] 05/12 [facility] PSYTX W PT 60 MINUTES [id number] [id number] Diagnos is: ICD-10- CM F43.10 Post-tr aumatic stress disorde r, unspeci ABRAM Anton 05/15 [facility] Outpatient Encounter [id number] [id number] 05/15 [facility] Outpatient Encounter [id number] [id number] 05/15 [facility] Outpatient Encounter [id number] [id number] ALPHONSO VILLATORO 05/17 [facility] OFFICE O/P EST MOD 30 MIN [id number] [id number] Diagnos is: ICD-10- CM F10.129 Alcohol abuse with intoxic ation, unspeci AGUSTIN Holden 05/17 [facility] 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/ M [id number] [id number] Diagnos is: ICD-10- CM F43.10 Post-tr aumatic stress disorde r, unspeci ALPHONSO Brady 05/17 [facility] Outpatient Encounter [id number] [id number] 05/17 [facility] SELF-HELP/ PEER SVC PER 15MIN [id number] [id number] Diagnos is: ICD-10- CM F43.10 Post-tr aumatic stress disorde r, unspeci fied BRIE MORA 05/18 [facility] Outpatient Encounter [id number] 05/19 [facility] Outpatient Encounter [id number] JAYSHREE COOLEY 05/22 [facility] Outpatient Encounter [id number] [id number] Diagnos is: ICD-10- CM F10.20 Alcohol depende nce, uncompl icated ESCOBAR MONTALVO L 05/23 [facility] SELF-HELP/ PEER SVC PER 15MIN [id number] [id number] Diagnos is: ICD-10- CM F43.10 Post-tr aumatic stress disorde r, unspeci fied STAS VARGAS JR 05/25 [facility] Outpatient Encounter [id number] [id number] ALPHONSO VILLATORO 05/25 [facility] 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/ M [id number] [id number] Diagnos is: ICD-10- CM F43.10 Post-tr aumatic stress disorde r, unspeci fied KATALINA RUCKER 05/26 [facility] Outpatient Encounter [id number] 05/31 [facility] Outpatient Encounter [id number] ALPHONSO VILLATORO 06/01 [facility] PSYTX W PT 45 MINUTES [id number] [id number] Diagnos is: ICD-10- CM F43.10 Post-tr aumatic stress disorde r, unspeci fied ABRAM BARNES 06/12 [facility] PSYTX W PT W E/M 30 MIN [id number] [id number] Diagnos is: ICD-10- CM F33.8 Other recurre nt depress laurel disorde rs AGUSTIN MATIAS E 06/15 [facility] [place] [facility] Outpatient Encounter [id number] 06/16 [place] [facility] [place] [facility] Outpatient Encounter [id number] 06/17 [facility] [place] [facility] Outpatient Encounter [id number] [id number] AMALIA KINNEY 06/21 [facility] PH1 ASSMT&MGMT NQHP 04-26 [id number] Diagnos is: ICD-10- CM F43.20 Adjustm ent disorde r, unspeci LISA Prieto 06/23 [facility] Outpatient Encounter [id number] [id number] RANDY OH E 06/26 [facility] Outpatient Encounter [id number] [id number] 06/28 [facility] CASE MANAGEMENT [id number] Diagnos is: ICD-10- CM F33.8 Other recurre nt depress laurel disorde rs LISA RODRIGUEZ 06/30 [facility] SELF-HELP/ PEER SVC PER 15MIN [id number] [id number] Diagnos is: ICD-10- CM F43.10 Post-tr aumatic stress disorde r, unspeci BRIE Sargent 07/06 [facility] Outpatient Encounter [id number] [id number] UCHE DIOP I 07/11 [facility] SELF-HELP/ PEER SVC PER 15MIN [id number] [id number] Diagnos is: ICD-10- CM F43.10 Post-tr aumatic stress disorde r, unspeci BRIE Sargent 07/13 [facility] Outpatient [facility]counter [id number] [id number] 07/13 [facility] Outpatient Encounter [id number] [id number] 07/13 [facility] CASE MANAGEMENT [id number] [id number] Diagnos is: ICD-10- CM F10.129 Alcohol abuse with intoxic ation, unspeci fiLISA Thomas 07/14 [facility]P EST HI 40 MIN [id number] [id number] Diagnos is: ICD-10- CM Z00.00 Encntr for general adult medical exam w/o abnorma l finding s BASSAM BLANK 07[facility]18 [facility] SELF-HELP/ PEER SVC PER 15MIN [id number] [id number] Diagnos is: ICD-10- CM F43.10 Post-tr aumatic stress disorde r, unspeci BRIE Sargent 07/20 [facility] Outpatient Encounter [id number] AMALIA KINNEY 07/20 [facility] Outpatient Encounter [id number] [id number] JEN JAQUEZ 07/21 [facility] SELF-HELP/ PEER SVC PER 15MIN [id number] [id number] Diagnos is: ICD-10- CM F10.129 Alcohol abuse with intoxic ation, unspeci BRIE Sargent 07/27 [facility] Outpatient Encounter [id number] [id number] 07/28 [place] [facility] [place] Out[facility]counter [id number] 08/08 [place] [facility] [place] Outpatient Encounter [id number] 08/11 [place] [facility] [place] [facility] CASE MANAGEMENT [id number] Diagnos is: ICD-10- CM F10.20 Alcohol depende nce, uncompl icated LISA RODRIGUEZ 08/17 [place] [facility] [place] Outpatient Encounter [id number] AMALIA KINNEY 08/18 [place] [facility] Outpatient Encounter [id number] CLINT INMAN 08/21 [facility] SELF-HELP/ PEER SVC PER 15MIN [id number] [id number] Diagnos is: ICD-10- CM F10.129 Alcohol abuse with intoxic ation, unspeci fiBRIE Ward 08/24 [facility] MANAGEMENT [id number] Diagnos is: ICD-10- CM F10.20 Alcohol depende nce, uncompl icated LISA RODRIGUEZ 08/25 [place] [facility] SELF-HELP/ PEER SVC PER 15MIN [id number] [id number] Diagnos is: ICD-10- CM F10.129 Alcohol abuse with intoxic ation, unspeci fiBRIE Ward 08/31 [facility] SELF-HELP/ PEER SVC PER 15MIN [id number] [id number] Diagnos is: ICD-10- CM F10.129 Alcohol abuse with intoxic ation, unspeci fied BRIE MORA 09/07 [facility] CASE MANAGEMENT [id number] [id number] Diagnos is: ICD-10- CM F10.129 Alcohol abuse with intoxic ation, unspeci LISA Prieto 09/08 [facility] Out[facility] Encounter [id number] 09/19 [place] [facility] [place] [facility] Encounter [id number] 09/19 [facility] Encounter [id number] UCHE DIOP I 09/19 [facility] PH1 ASSMT&MGMT NQHP 5-10 [id number] Diagnos is: ICD-10- CM F10.129 Alcohol abuse with intoxic ation, unspeci LIAS Prieto 10/05 [facility] Out[facility] Encounter [id number] 10/06 [facility] Encounter [phone] 10/20 [facility] Procedures Combined list of: 1) Procedures from [facility] facilities going back up to thelast 18 months, not all [place] non-surgical procedures are included; 2) All procedures from the Department of [facility] facilities. Procedure Procedure Type Code Date Perfomer Comments Sourc e Prescription & Fitting Bilateral Corneal Lenses (Not Aphakia Prescription & Fitting Bilateral Corneal Lenses (Not Aphakia 40526 11/04/19 12 [email or web address] Determination Of Refractive State Determination Of Refractive State 58285 11/04/19 12 SUE, KIMMY Zahida Verican Ophthalmological New Patient Start Comprehensive Care Ophthalmological New Patient Start Comprehensive Care 48448 11/04/19 12 SUE, KIMMY V Verican Patient education, not otherwise cla ified, non-physician provider, individual, per se ion 08/07/19 12 ALIS FRAIRE [facility] Audiometry Group Testing Audiometry Group Testing 80088 08/07/19 12 ALIS FRAIRE [facility] Audiometry Group Testing Audiometry Group Testing 07435 11/19/19 10 GLADYS MARTINEZ [facility] Spectacles Services Fitting Monofocals (Not For Aphakia) Spectacles Services Fitting Monofocals (Not For Aphakia) 19614 03/15/20 09 TIMUR LOREDO [facility] Determination Of Refractive State Determination Of Refractive State 85538 03/15/20 09 TIMUR LOREDO [facility] Prescription & Fitting Bilateral Corneal Lenses (Not Aphakia Prescription & Fitting Bilateral Corneal Lenses (Not Aphakia 20893 03/15/20 09 TIMUR LOREDO Ophthalmological New Patient Start Comprehensive Care Ophthalmological New Patient Start Comprehensive Care 17471 03/15/20 09 TIMUR LOREDO [facility] Psychiatric Evaluation Comprehensive Examination Psychiatric Evaluation Comprehensive Examination 66149 10/11/19 09 DAYTON SAUNDERS [facility] Alcohol and/or drug a e ment 08/25/[address] Supervised Injection Intramuscular Antibiotic Supervised Injection Intramuscular Antibiotic 25145 07/19/19 09 ANNMARIE CHAWLA [facility] THERAPEUTIC, PROPHYLACTIC OR DIAGNOSTIC INJECTION (SPECIFY SUBSTANCE OR DRUG); SUBCUTANEOUS OR INTRAMUSCULAR 06/20/19 09 [facility] PURE TONE AUDIOMETRY (THRESHOLD); AIR ONLY 04/13/20 08 [facility] PNEUMOCOCCAL POLYSACCHARIDE VACCINE, 23-VALENT (PPSV23), ADULT OR IMMUNOSUPPRESSED PATIENT DOSAGE, WHEN ADMINISTERED TO INDIVIDUALS 2 YEARS OR OLDER, FOR SUBCUTANEOUS OR INTRAMUSCULAR USE 04/10/20 08 [facility] FITTING OF SPECTACLES, EXCEPT FOR APHAKIA; MONOFOCAL 04/06/20 08 [facility] Social History Combined list of available smoking, tobacco, and other social history from Department of Defense and Veterans Affairs facilities. Social History Type Response Date Comment Sour e Tobacco smoking status NHIS VA-TOBACCO SCREEN FOLLOW-UP 07/18/2024 [facility] History of tobacco use VA-TOBACCO USE ADVICE 07/18/2024 [facility] History of tobacco use VA-TOBACCO USE EV [facility] 05/17/2024 [facility] History of tobacco use INPT TOBACCO USE - PT REFUSED 10/19/2023 [facility] History of tobacco use VA-TOBACCO FORMER USER 11/27/2022 [facility] History of tobacco use VA-TOBACCO USE MED YES 11/01/2018 [facility] History of tobacco use CURRENT TOBACCO USER 08/05/2017 [facility] History of tobacco use CURRENT TOBACCO USER 06/15/2016 [facility] History of tobacco use INPT TOBACCO COUNSELING 06/10/2016 [facility] History of tobacco use CURRENT TOBACCO USER 06/10/2016 [facility] History of tobacco use CURRENT TOBACCO USER 10/07/2015 [facility] This section is an empty social history section. [facility] Advance Directives List of completed, amended, or rescinded Advance Directives on record at Department of Veterans Affairs facilities. An actual copy of the Directive is not included. Date Advance Directive Provider Source 03/31/2023 ADVANCE DIRECTIVE DISCUSSION APOORVA KHANNA [facility] 11/30/2022 ADVANCE DIRECTIVE DISCUSSION ALEXANDER CONNOR [facility] 06/17/2016 ADVANCE DIRECTIVE DISCUSSION CAROLIN FIGUEROA AE [facility] 06/10/2016 CLINICAL WARNING NAIDA BRADSHAW [facility] 10/07/2015 ADVANCE DIRECTIVE DISCUSSION Lemuel URRUTIA [facility]
--- OUTSIDE RECORDS SUMMARY | 2024-11-02 17:57 | XMS_ITS | Clinical Summary ---
Author Organization [facility] Address [address] [place] [address] Care Team Providers Care Supervisor Powdered Sugar Name Role Phone None Reported, Pcp Primary Care Provider Unavail able Source Comments Patient records contain information from all sites at [facility]. For routine questions regarding patient records, call [phone] during business hours, M-F 8:00 AM - 5:00 PM Central Time. Record requests for emergency care only can be directed to [phone] at any time.[facility] Allergies No known active allergies Medications amphetamine-dext [...] patient's age to complete this topic Insurance [facility] Care Teams Supervisor Powdered Sugar Relationship Specialty Start Date End Date None Reported, Pcp PCP - General Family Medicine 08/25/23
--- OUTSIDE RECORDS SUMMARY | 2024-11-02 17:57 | XMS_ITS | Clinical Summary ---
Author Organization [facility] Address [address] [place] [id number] Care Team Providers Care Mortgage Protection Sales Name Role Phone Home - [place], [place] [facility] Primary C are Provider Allergies [...] on file Legal Sex Male 4:41 AM RESTAURANT ATTENDANT Gender Identity Not on file Sexual Orientation Not on file Last Filed Vital Signs Vital Sign Reading Time Taken Comments Blood Pressure 156/96 07/22/2023 9:49 AM RESTAURANT ATTENDANT Pulse 102 07/22/2023 9:49 AM RESTAURANT ATTENDANT Temperature 36.4 C (97.5 F) 07/22/2023 5:17 AM RESTAURANT ATTENDANT Respiratory Rate 20 07/22/2023 9:49 AM RESTAURANT ATTENDANT Oxygen Saturation 98% 07/22/2023 9:49 AM RESTAURANT ATTENDANT Inhaled Oxygen Concentration - - Weight 95.3 kg (210 lb) 07/22/2023 5:17 AM RESTAURANT ATTENDANT Height 182.9 cm (6') 07/22/2023 5:17 AM RESTAURANT ATTENDANT Body Mass Index 28.48 07/22/2023 5:17 AM RESTAURANT ATTENDANT Plan of Treatment Health Maintenance Due Date Last Done Comments ADVANCE CARE PLANNING 1988 ANNUAL REVIEW OF HM ORDERS 1988 HIV SCREENING 2003 YEARLY PREVENTIVE VISIT 10/06/2022 10/06/2021 COVID-19 VACCINE (3 season) 2024 09/26/2020, 08/28/2020 PHQ-2 (once per calendar year) 2024 INFLUENZA VACCINE (Season Ended) 2025 02/07/2021, 02/02/2020, 02/28/2019, Additional history exists DIABETES SCREENING 07/22/2026 07/22/2023 DTAP/TDAP/TD VACCINE (5 - Td or Tdap) 02/23/2027 02/23/2017, 06/10/2016, 10/07/2015, Additional history exists ZOSTER VACCINE (1 of 2) 2038 MENINGITIS VACCINE Aged Out 04/04/2008 No longer eligible based on patient's age to complete this topic HEPATITIS B VACCINE Completed 02/13/2009, 05/01/2008, 04/30/2008, Additional history exists PNEUMOCOCCAL VACCINE: PEDIATRICS (0 to 5 YEARS) AND AT-RISK PATIENTS (6 to 49 YEARS) Aged Out 09/03/2016, 04/04/2008 No longer eligibl e based on patient's age to complete this topic HEPATITIS C SCREENING Completed 03/24/2023, 023 HPV VACCINE Aged Out No longer eligi ble based on patient's age to complete this topic Procedures Procedure Name Priority Date/Time Associated Diagnosis Comments COMPREHENSIVE METABOLIC PANEL STAT 07/22/2023 5:41 AM RESTAURANT ATTENDANT from Last 3 Months or Most Recently Relevant to Health Maintenance Results * (ABNORMAL) Comprehensive metabolic panel (07/22/2023 5:41 AM RESTAURANT ATTENDANT) [facility] Sodium 138 135 - 145 mmol/L 07/22/2023 6:17 AM RESTAURANT ATTENDANT [facility] Comment:Reference intervals for this test were updated on 03/02/2023 to more accurately reflect our healthy population. There may be differences in the flagging of prior results with similar values performed with this method. Interpretation of those prior results can be made in the context of the updated reference intervals. Potassium 3.7 3.4 - 5.3 mmol/L 07/22/2023 6:17 AM RESTAURANT ATTENDANT [facility] Carbon Dioxide (CO2) 25 22 - 29 mmol/L 07/22/2023 6:17 AM RESTAURANT ATTENDANT [facility] Anion Gap 17(H) 7 - 15 mmol/L 07/22/2023 6:17 AM [facility] Urea Nitrogen 11.8 6.0 - 20.0 mg/dL 07/22/2023 6:17 AM [facility] Creatinine 0.82 0.67 - 1.17 mg/dL 07/22/2023 6:17 AM [facility] GFR Estimate >90 >60 mL/min/1. 73m2 07/22/2023 6:17 AM [facility] Calcium 7.9(L) 8.6 - 10.0 mg/dL 07/22/2023 6:17 AM [facility] Chloride 96(L) 98 - 107 mmol/L 07/22/2023 6:17 AM [facility] Glucose 153(H) 70 - 99 mg/dL 07/22/2023 6:17 AM [facility] Alkaline Phosphatase 71 40 - 150 U/L 07/22/2023 6:17 AM [facility] Comment:Reference intervals for this test were updated on 04/20/2023 to more accurately reflect our healthy population. There may be differences in the flagging of prior results with similar values performed with this method. Interpretation of those prior results can be made in the context of the updated reference intervals. AST 131(H) 0 - 45 U/L 07/22/2023 6:17 AM [facility] Comment:Reference intervals for this test were updated on 11/16/2022 to more accurately reflect our healthy population. There may be differences in the flagging of prior results with similar values performed with this method. Interpretation of those prior results can be made in the context of the updated reference intervals. ALT 94(H) 0 - 70 U/L 07/22/2023 6:17 AM [facility] Comment:Reference intervals for this test were updated on 11/16/2022 to more accurately reflect our healthy population. There may be differences in the flagging of prior results with similar values performed with this method. Interpretation of those prior results can be made in the context of the updated reference intervals. Protein Total 6.8 6.4 - 8.3 g/dL 07/22/2023 6:17 AM [facility] Albumin 4.2 3.5 - 5.2 g/dL 07/22/2023 6:17 AM [facility] Bilirubin Total 0.9 <=1.2 mg/dL 07/22/2023 6:17 AM RESTAURANT ATTENDANT [facility] Blood STRUCTURE OF RIGHT UPPER LIMB / Unknown Venipuncture / Unknown 07/22/2023 5:41 AM RESTAURANT ATTENDANT 07/22/2023 5:54 AM RESTAURANT ATTENDANT us Ayo Boyce MD LAB - BLOOD ORDERABLES Final Result [facility] [address] Lab (1st floor, no room number) [place] [address], [facility] [phone] from Last 3 Months or Most Recently Relevant to Health Maintenance Care Teams Mortgage Protection Sales Relationship Specialty Start Date End Date Home - [address] [address] PCP - General 07/22/23
--- OUTSIDE RECORDS SUMMARY | 2024-11-02 17:57 | XMS_ITS | Clinical Summary ---
Author Organization [facility] Address [address] [place] [id number] Care Team Providers Care Lab Rep Name Role Phone Pcp, No Primary Care Provider Unavailabl e Allergies No known active allergies Medications dextroamphetamine-amp hetamine (ADDERALL XR) 30 mg Extended-Release capsule Take 30 mg by mouth once daily. 4 Active multivit,thx,calcium, iron,mins (MULTIVITAMIN AND MINERAL ORAL) Take 1 Tablet by mouth once daily. Active pantoprazole (PROTONIX) 40 mg delayed-release tabletIndications:Gas trointestinal hemorrhage, unspecified gastrointestinal hemorrhage type Take 1 Tablet (40 mg) by mouth two times daily before meals. 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 Psychosis 04/14/2014 Substance or medication-induced psychotic disord er 04/14/2014 Alcohol dependence 04/14/2014 Amphetamine abuse 04/14/2014 Encounters Date Type Department Care Team Description 5 10:30 AM CDT Anesthesia Event [facility] [address] [place] [address] Wilfrid Chavez MD Schindele, Hilary Anne, CRNA 5 9:55 AM CDT - 5 10:28 AM CDT Surgery [facility] [address] [place] [address] Eleazar Elizabeth MD ESOPHAGOGASTRODUODENOSCOPY 5 9:18 PM CDT - 5 3:43 PM CDT Hospital Encounter [facility] [address] [place] [address] [facility], MD Chary Hubbard, MD Javier Au, Reba, SHERRI Gastrointestinal hemorrhage, unspecified gastrointestinal hemorrhage type (Primary Dx) Discharge Disposition: Home Self Care 5 Travel from Last 3 Months Immunizations Immunization Administration Dates Next Due Influenza, IIV4 04/13/2014 Social History Tobacco Use Types Packs/Day Years Used Date Smoking Tobacco: Never Smokeless Tobacco: Current Chew Comments:1 can per day for 1 0 years Alcohol Use Standard Drinks/Week Comments Yes 0 (1 standard drink = 0.6 oz pure alcohol) 3/4 liter per day for two months Social Connections Answer Date Recorded Do you often feel lonely or isolated from those around you? 0 08/19/2024 Financial Resource Strain Answer Date R ecorded Difficulty of Paying Living Expenses 3 08/19/2024 Difficulty of Paying Living Expenses Not on file 08/19/2024 Food Insecurity Answer Date Recorded Do you worry your food will run out before you are able to buy more? 1 08/19/2024 Transportation Needs Answer Date Record ed Does lack of transportation keep you from medica l appointments? 1 08/19/2024 Does lack of transportation keep you from work, meetings or getting things that you need? 1 08/19/2024 Housing Stability Answer Date Recorded What is your housing situation today? 1 08/19/2024 Interpersonal Safety Answer Date Record ed Are you being hit, kicked, p ushed or yelled at (see row info)? No 08/19/2024 Interpersonal Safety Abuse 12 - 18 Not on file 08/19/2024 Interpersonal Safety Ambulatory Vulnerability No t on file 08/19/2024 Utilities Answer Date Recorded Do you have trouble paying f or utilities (for example, heat, electricity, water, phone)? 1 08/19/2024 Sex and Gender Information Value Date Recorded Sex Assigned at Not on file Legal Sex Male 12:38 PM OFFICE ASSOCIATE Gender Identity Not on file Sexual Orientation Not on file Obstetrics History Last Filed Vital Signs Vital Sign Reading Time Taken Comments Blood Pressure 118/76 08/21/2024 12:14 PM CDT Pulse 69 08/21/2024 12:14 PM CDT Temperature 36.5 C (97.7 F) 08/21/2024 12:14 PM CDT Respiratory Rate 16 08/21/2024 12:14 PM CDT Oxygen Saturation 97% 08/21/2024 12:14 PM CDT Inhaled Oxygen Concentration - - Weight 96.3 kg (212 lb 4.8 oz) 08/19/2024 9:21 P M CDT Height 182.9 cm (6') 10/29/2023 8:49 PM CDT Body Mass Index 28.79 10/29/2023 8:49 PM CDT Plan of Treatment Health Maintenance Due Date Last Done Comments Tdap 1999 Depression screening for age 12+ 2000 BMI (ht and wt on same day) for age 18+ 2006 Hepatitis C screening for age 18-79 2006 Hepatitis B series for 19+ ( 1 of 3 - 19+ 3-dose series) 2007 Pneumococcal series for age 6-49 (1 of 2 - PCV) 2007 Tetanus booster 2008 Lipids for age 35-44 2023 COVID-19 vaccine series ( season) 2024 09/26/2020, 08/28/2020 Influenza Vaccine (Season Ended) 2025 04/13/20 14 HIV for age 15-65 Completed 04/12/2014 Procedures Procedure Name Priority Date/Time Associated Diagnosis Comments SCAN CORRESP-IMAGING 08/22/2024 2:13 PM CDT SCAN CORRESP-EKG RESULTS 025 1:05 PM CDT HEMOGLOBIN Today 08/21/2024 12:12 PM CDT ESOPHAGOGASTRODUODENOSCOPY 08/21 10:25 AM CDT See MD cerda ENDOSCOPY 08/21/2024 10:24 AM CDT HEMOGLOBIN Today 08/21/2024 5:33 AM CDT MAGNESIUM Early AM 08/21/2024 5:33 AM CDT PLATELET COUNT Early AM 08/21/2024 5:33 AM CDT HEPATIC FUNCTION PANEL Early AM 5:33 AM CDT CREATININE Early AM 08/21/2024 5:33 AM CDT POTASSIUM Early AM 08/21/2024 5:33 AM CDT SODIUM Early AM 08/21/2024 5:33 AM CDT HEMOGLOBIN Today 08/21/2024 12:41 AM CDT HEMOGLOBIN Today 08/20/2024 5:55 PM CDT HEMOGLOBIN Today 08/20/2024 12:17 PM CDT MAGNESIUM Add On 08/20/2024 2:17 AM CDT HEMOGLOBIN Today 08/20/2024 2:17 AM CDT PLATELET COUNT Early AM 08/20/2024 2:17 AM CDT WHITE BLOOD COUNT Early AM 08/20/2024 2:1 7 AM CDT HEPATIC FUNCTION PANEL Early AM 2:17 AM CDT BASIC METABOLIC PANEL Early AM 08/20/2024 2:17 AM CDT HEMOGLOBIN Today 08/19/2024 11:08 PM CDT POTASSIUM Today 08/19/2024 11:08 PM CDT MAGNESIUM Today 08/19/2024 11:08 PM CDT ANTI HIV 1/2 Today 04/12/2014 12:45 PM OFFICE ASSOCIATE from Last 3 Months or Most Recently Relevant to Health Maintenance Results * SCAN CORRESP-IMAGING (08/22/2024 2:13 PM CDT) Anatomical Region Laterality Modality Other Narrative 08/22/2024 2:13 PM CDT Ordered by an unspecified provider. us Other Clinical Staff OTHER Final Resul t * SCAN CORRESP-EKG RESULTS (08/22/2024 1:05 PM CDT) Narrative 08/22/2024 1:05 PM CDT Ordered by an unspecified provider. us Other Clinical Staff OTHER Final Resul t * (ABNORMAL) HEMOGLOBIN (08/21/2024 12:12 PM CDT) Only the most recent of7 resultswithin the time period is included. HEMOGLOBIN 8.6(L) 13.5 - 17.5 g/dL 08/21/2024 12:35 PM CDT [facility] MCV 90 80 - 100 fL 08/21/2024 12:35 PM CDT [facility] Blood BLOOD SPECIMEN / Unknown Venipuncture / Unknown 08/21/2024 12:12 PM CDT 08/21/2024 12:31 PM CDT Meme Diez MD HEMATOLOGY Final R esult [facility] [address] [place] [address], * ENDOSCOPY (08/21/2024 10:24 AM CDT) 08/21/2024 10:2 4 AM CDT Narrative Transcriptions Eleazar Elizabeth MD - 08/21/2024 11:10 AM CDT [facility] Patient Name: Balaji Mckeon Procedure Date: 08/21/2024 Gender: Male Date of : 1990 Admit Type: Inpatient Procedure: Upper GI endoscopy Proceduralist: Eleazar Elizabeth MD - [facility] Indications/Pre-Op Diagnosis: Hematemesis, heavy alcohol use; CT withsmall esophageal varices Medications: Monitored Anesthesia Care Procedure Description: Risk of bleeding, infection, perforation, need for surgery and alternatives discussed. The endoscope [id number] was introduced through the mouth, and advanced to the third part of duodenum. The upper GI endoscopy was accomplished without difficulty. The patient tolerated the procedure well. Complications: No immediate complications. Estimated Blood Loss & Specimen: Estimated blood loss: none. Estimated blood loss: none. Specimen collected: None Findings: Esophagogastric landmarks were identified: the Z-line was found at 36 cm, the upper extent of the gastric folds was found at 36 cm and the site of hiatal narrowing was found at 42 cm from the incisors. One superficial esophageal ulcer with no stigmata of recent bleedingwas found in the lower third of the esophagus. The lesion was 8 mm in largest dimension. A medium-sized hiatal hernia was present. A small amount of food (residue) was found in the gastric body. The examined duodenum was normal. Impressions/Post-Op Diagnosis: - Esophagogastric landmarks identified. - Esophageal ulcer with no stigmata of recent bleeding. - Medium-sized hiatal hernia. - A small amount of food (residue) in the stomach. - No specimens collected. Recommendation: - Return patient to hospital carey for ongoing care. - Diet as tolerated - PPI BID - Alcohol cessation - Repeat EGD in 2 months to check on healing, GI will arrange. - GI will sign off. Eleazar Elizabeth MD 08/21/2024 11:10:15 AM This report has been signed electronically. Note Initiated On: 08/21/2024 10:24 AM Eleazar Elizabeth MD PROCEDURE ORD Final Resul t * (ABNORMAL) Platelets AM (08/21/2024 5:33 AM CDT) Only the most recent of2 resultswithin the time period is included. PLATELET COUNT 106(L) 140 - 440 thou/cu mm 08/21/2024 5:55 AM CDT [facility] MPV 11.1(H) 6.5 - 11.0 fL 08/21/2024 5:55 AM CDT [facility] Blood BLOOD SPECIMEN / Unknown Venipuncture / Unknown 08/21/2024 5:33 AM CDT 08/21/2024 5:46 AM CDT Meme Diez MD HEMATOLOGY Final R esult [facility] [address] [place] [address], [place] * SODIUM (08/21/2024 5:33 AM CDT) SODIUM 138 136 - 145 mmol/L 08/21/2024 6:17 AM CDT [facility] Blood BLOOD SPECIMEN / Unknown Venipuncture / Unknown 08/21/2024 5:33 AM CDT 08/21/2024 5:46 AM CDT Meme Diez MD CHEMISTRY Final R esult [facility] [address] [place] [address], [place] * POTASSIUM (08/21/2024 5:33 AM CDT) Only the most recent of2 resultswithin the time period is included. POTASSIUM 3.9 3.5 - 5.1 mmol/L 08/21/2024 6:17 AM CDT [facility] Blood BLOOD SPECIMEN / Unknown Venipuncture / Unknown 08/21/2024 5:33 AM CDT 08/21/2024 5:46 AM CDT Meme Diez MD [facility] Performing Organization Address City/[facility] Co de Phone Number [facility] [address] [address], [place] * CREATININE (08/21/2024 5:33 AM CDT) Pathologist [facility] eGFR >90 >90 mL/min/1.7 3m2 08/21/2024 6:17 AM CDT [facility] Comment:As of 2021, eG FR is calculated by the CKD-EPI creatinine equation without race adjustment. eGFR can be influenced by muscle mass, exercise, and diet. The reported eGFR is an estimation only and is only applicable if the renal function is stable. CREATININE 0.86 0.70 - 1.20 mg/dL 08/21/2024 6:17 AM CDT [facility] Blood BLOOD SPECIMEN / Unknown Venipuncture / Unknown 08/21/2024 5:33 AM CDT 08/21/2024 5:46 AM CDT Meme Diez MD CHEMISTRY Final R esult Performing Organization Address City/[facility] Co de Phone Number [facility] [address] [address], [place] * MAGNESIUM (08/21/2024 5:33 AM CDT) Only the most recent of3 resultswithin the time period is included. Pathologist [facility] MAGNESIUM 2.2 1.6 - 2.6 mg/dL 08/21/2024 6:17 AM CDT [facility] Blood BLOOD SPECIMEN / Unknown Venipuncture / Unknown 08/21/2024 5:33 AM CDT 08/21/2024 5:46 AM CDT us Meme Diez MD CHEMISTRY Final R esult [facility] [address] [place] [address], * (ABNORMAL) Hepatic function panel AM (08/21/2024 5:33 AM CDT) Only the most recent of2 resultswithin the time period is included. ALBUMIN 3.4(L) 4.0 - 4.9 g/dL 08/21/2024 6:17 AM CDT [facility] PROTEIN,TOTAL 5.4(L) 6.0 - 8.0 g/dL 08/21/2024 6:17 AM CDT [facility] BILIRUBIN,TOTAL 0.5 0.0 - 1.2 mg/dL 08/21/2024 6:17 AM CDT [facility] BILIRUBIN,DIRECT 0.2 0.0 - 0.2 mg/dL 08/21/2024 6:17 AM CDT [facility] BILIRUBIN,INDIRE CT 0.3 0.2 - 0.8 mg/dL 08/21/2024 6:17 AM CDT [facility] ALK PHOSPHATASE 56 40 - 129 IU/L 08/21/2024 6:17 AM CDT [facility] ALT (SGPT) 192(H) 10 - 50 IU/L 08/21/2024 6:17 AM CDT [facility] AST (SGOT) 56(H) 10 - 50 IU/L 08/21/2024 6:17 AM CDT [facility] Blood BLOOD SPECIMEN / Unknown Venipuncture / Unknown 08/21/2024 5:33 AM CDT 08/21/2024 5:46 AM CDT us Meme Diez MD CHEMISTRY Final R esult [facility] [address] [place] [address], * WHITE BLOOD COUNT (08/20/2024 2:17 AM CDT) WHITE BLOOD COUNT 7.5 4.5 - 11.0 thou/cu mm 08/20/2024 2:27 AM CDT [facility] NRBC 0.0 % 08/20/2024 2:27 AM CDT [facility] ABS NRBC 0.0 thou /cu mm 08/20/2024 2:27 AM CDT [facility] Blood BLOOD SPECIMEN / Unknown Venipuncture / Unknown 08/20/2024 2:17 AM CDT 08/20/2024 2:23 AM CDT us Lb Call MD HEMATOLOGY Final Res ult [facility] [address] [place] [address], * (ABNORMAL) BASIC METABOLIC PANEL (08/20/2024 2:17 AM CDT) SODIUM 136 136 - 145 mmol/L 08/20/2024 2:45 AM CDT [facility] POTASSIUM 4.1 3.5 - 5.1 mmol/L 08/20/2024 2:45 AM CDT [facility] CHLORIDE 100 98 - 107 mmol/L 08/20/2024 2:45 AM CDT [facility] CO2,TOTAL 27 22 - 29 mmol/L 08/20/2024 2:45 AM CDT [facility] ANION GAP 9 5 - 18 08/20/2024 2:45 AM CDT [facility] GLUCOSE 144(H) 70 - 99 mg/dL 08/20/2024 2:45 AM CDT [facility] CALCIUM 8.0(L) 8.8 - 10.4 mg/dL 08/20/2024 2:45 AM CDT [facility] Comment: Reference ranges for this test were updated on 04/11/2024 to reflect our healthy population more accurately. Reference range changes are not retroactively applied to results, but previous results using the same methodology can be interpreted in the context of the new reference range. BUN 23(H) 6 - 20 mg/dL 08/20/2024 2:45 AM CDT [facility] CREATININE 0.80 0.70 - 1.20 mg/dL 08/20/2024 2:45 AM CDT [facility] BUN/CREAT RATIO 29(H) 10 - 20 2:45 AM CDT [facility] eGFR >90 >90 mL/min/1. 73m2 08/20/2024 2:45 AM CDT [facility] Comment:As of 2021, eG FR is calculated by the CKD-EPI creatinine equation without race adjustment. eGFR can be influenced by muscle mass, exercise, and diet. The reported eGFR is an estimation only and is only applicable if the renal function is stable. Blood BLOOD SPECIMEN / Unknown Venipuncture / Unknown 08/20/2024 2:17 AM CDT 08/20/2024 2:23 AM CDT Lb Call MD CHEMISTRY Final Res ult [facility] [address] [place] [address], * HIV 1&2 TODAY (04/12/2014 12:45 PM OFFICE ASSOCIATE) HIV-1/HIV-2 ANTIBODY Non-Reacti ve Non-Reacti ve 04/12/2014 2:19 PM OFFICE ASSOCIATE [facility] Blood specimen (specimen) BLOOD SPECIMEN / Unknown Venipuncture / Unknown 04/12/2014 12:45 PM OFFICE ASSOCIATE 04/12/2014 1:26 PM OFFICE ASSOCIATE Narrative [facility] - 04/12/2014 2:19 PM OFFICE ASSOCIATE HIV-1 p24 and HIV-1/HIV-2 Ab not detected us Queenie Enriquez MD SEND OUTS Final Res ult [facility] [address] [place] [address], [place] from Last 3 Months or Most Recently Relevant to Health Maintenance Insurance [employer] [facility] [place] [address] Advance Directives * Full Code (Latest Code Status on File) Date Activated Date Inactivated Comments 08/19/2024 10:24 PM 08/21/2024 5:49 PM Question Answer Comments Code Status Discussion: Reviewed Preferences * Full Code Date Activated Date Inactivated Comments 04/11/2014 8:13 PM 04/16/2014 4:15 PM Care Teams Lab Rep Relationship Specialty Start Date End Date Pcp, No . PCP - General 04/11/14
--- OUTSIDE RECORDS SUMMARY | 2024-11-02 17:57 | XMS_ITS | Clinical Summary ---
Author Organization [facility] Address [address], [place] [address] Care Team Providers Care Data Analytics Chief Scientist Name Role Phone Feliciano Dexter MD Primary Care Provider [phone] Source Comments You are receiving this document as you are listed as the primary care provider,follow-up provider, or the patient has been referred to you for consultation.This is in compliance with the Medicare and[facility] E[facility] Incentive Program,which states Providers who transition their patient to another setting of careor provider of care or refers their patient to another provider of care shouldprovide summary care record for each transition of care or referral. 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 Not on file Not on file Last Filed Vital Signs Vital Sign Reading Time Taken Comments Blood Pressure 118/77 10/06/2021 12:21 PM CDT Pulse 75 10/06/2021 12:21 PM CDT Temperature 36.8 C (98.2 F) 07/08/2021 8:30 AM 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 Patient Reported Respiratory Rate 18 10/12/2017 [...] 1990 HIV Screening (Preventive Services) 2004 HepB Vaccine (1) 2007 Adult Preventive Visit 10/07/2023 10/06/2021 COVID-19 Vaccine (3 - season) 2024 09/26/2020, 08/28/2020 Influenza Vaccine (Season Ended) 2025 02/07/2021, 02/02/2020, 02/28/2019, Additional history exists Cholesterol 10/06/2026 10/06/2021 DTaP/Tdap/Td Vaccine (2 - Tdap) 02/23/2027 02/23/2017 Zoster/Shingles Vaccine (1 of 2) 2038 HPV Vaccine Aged Out No longer eligi ble based on patient's age to complete this topic HepA Vaccine Aged Out No longer eligi ble based on patient's age to complete this topic Hib Vaccine Aged Out No longer eligi ble based on patient's age to complete this topic IPV (Polio) Vaccine Aged Out No longe r eligible based on patient's age to complete this topic MCV4 Vaccine Aged Out No longer eligi ble based on patient's age to complete this topic Meningococcal B Vaccine Aged Out No l onger eligible based on patient's age to complete this topic Pneumococcal Vaccine Aged Out No long er eligible based on patient's age to complete this topic Procedures Procedure Name Priority Date/Time Associated Diagnosis Comments CHOLESTEROL, TOTAL AND HDL Routine 10/06/2021 12:58 PM CDT Well adult exam from Last 3 Months or Most Recently Relevant to Health Maintenance Results * (ABNORMAL) Cholesterol Total and HDL (10/06/2021 12:58 PM CDT) Cholesterol 204(H) 0 - 199 mg/dL 10/06/2021 2:44 PM CDT [facility] HDL Cholesterol 29(L) >=40 mg/dL 2 2:44 PM CDT [facility] Non HDL Chol, Calculated 175(H) <=159 mg/dL 10/06/2021 2:44 PM CDT [facility] Blood Venipuncture / Unknown 10/06/2021 12:58 PM CDT 10/06/2021 12:58 PM CDT Feliciano Dexter MD LAB_1 Final Result [facility] [address] [facility] [place] [address], [facility] [phone] from Last 3 Months or Most Recently Relevant to Health Maintenance Insurance [facility] Care Teams Data Analytics Chief Scientist Relationship Specialty Start [place] [id number] [place] [id number] PCP - General Family Practice 02/22/17
[2024-11-02 18:04] VITALS: BP 136/99; PULSE 111; O2SAT 94
[2024-11-02 18:05] VITALS: PULSE 110; O2SAT 95
[2024-11-02 18:06] VITALS: BP 136/99; PULSE 114; RESP 20; TEMP 36.4; O2SAT 97
[2024-11-02 18:15] VITALS: PULSE 105; O2SAT 96
--- NOTE | 2024-11-02 18:16 | ED.ALCOHOL ---
HPI - Alcohol General Time Seen by Provider: 18:16 Date Seen: 11/02/24 Chief Complaint: Alcohol/Intoxication Stated Complaint: ETOH Time Seen by Provider: 11/02/24 18:05 Source: patient, EMS and RN notes reviewed Mode of arrival: EMS Limitations: no limitations History of Present Illness HPI narrative: This 34-year-old male is coming to the ER via EMS after use found outside his house reportedly unconscious by his neighbors. The police were called, patient did awaken for the police. He had a Breathalyzer reading 0.367. He does not remember how he got outside, states he has been drinking since this morning. He has no pain anywhere, when ask him if he has any nausea or has been vomiting, he states not yet. He does not remember going outside, is unclear if he fell or not but is not hurting anywhere. He cannot give me details of the events. EMS placed an IV in his left arm. MD complaint: alcohol intoxication and alcohol dependence Chronic alcohol use: Yes Previous visits for alcohol intoxication: Yes Related Data Home Medications ?Medication ?Instructions ?Recorded ?Confirmed dextroamphetamine-amphetamine ER 60 mg PO BID 08/21/23 11/02/24 20 mg 24hr capsule,extend release trazodone 50 mg tablet 50 mg PO DAILY 11/02/24 11/02/24 Allergies Allergy/AdvReac Type Severity Reaction Status Date / Time No Known Drug Allergies Allergy Verified 11/02/24 18:04 Review of Systems Status of ROS Reports: 6 or more systems reviewed and unremarkable except as noted in History and below [facility] Medical History Alcohol use disorder ?F10.90 - Alcohol use, unspecified, uncomplicated (ICD-10) Family History Other Cardiovascular disease Diabetes Stroke Social History Narrative: patient lives alone in [place]. He is . He has a 10-year-old daughter that he sees on a regular schedule. 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 He is a and gets medical care through the [facility]. What is your current living situation?: I presently have a place to live Problems where you live: no known problems Problems where you live details: N/A In the past 12 months, utilities in danger of being shut off: no In past 12 months, lack of transportation kept you from medical appts, meetings, work, or getting things needed for daily living: no In the past 12 mos, have been you worried that your food would run out before you had money to buy more?: never true In the past 12 mos, the food you bought just didn't last and you didn't have money to buy more?: never true Highest level of school completed/degree received: some college, no degree Smoking Status: Never smoker Do you use any of these nicotine containing products: E-Cigarettes How often do you have a drink containing alcohol: 4 or more times a week Alcohol type: hard liquor AUDIT-C Alcohol total score: 4 Non-prescribed substance use: marijuana (any form) and over the counter (eg: immodium) Non-prescribed substance use details: ketamine infusions Caffeine: Yes How often does anyone, including family, friends and others, physically hurt you: never How often does anyone, including family, friends and others, insult or talk down to you: never How often does anyone, including family, friends and others, threaten you with harm: never How often does anyone, including family, friends and others, scream or curse at you: never service: Yes Exam Const: Vital Signs, click to edit/add: Vital Signs - 24 hr 11/02/24 18:04 11/02/24 18:05 11/02/24 18:06 Temperature 97.6 F Pulse Rate 111 H 110 H Pulse Rate [Pulse Oximeter] 114 H Respiratory Rate 20 Blood Pressure 136/99 H Blood Pressure [Ri ght Upper Arm] 136/99 H Pulse Oximetry 94 95 97 11/02/24 18:15 11/02/24 18:17 11/02/24 18:18 Temperature Pulse Rate 105 H 101 H Pulse Rate [Pulse Oximeter] Respiratory Rate Blood Pressure 124/93 H Blood Pressure [Ri ght Upper Arm] Pulse Oximetry 96 96 96 Balaji is a 34-year-old male that is obviously intoxicated but awakens to my voice, is alert and interactive. His speech is somewhat slow, seems more intoxicated than his prior time when I have seen him before. Pupils are equal round, sclera clear, face atraumatic. He has no visible wounds on his scalp or palpable wounds. No midline tenderness of his neck, complains of no pain with range of motion of his neck. No adenopathy, no thyromegaly masses or nodules. Lungs are clear, good air entry, wheeze or crackles, breathing easy on room air. Abdomen is soft, nontender, nondistended, no organomegaly. He will move his legs, move his arms, follows commands. His fingers, hands, arms reveal no painful areas, good range of motion. From his pelvis down to his toes he has no palpable tenderness, no pain with range of motion of joints. He has no lower extremity edema. I see no visible wounds at this time. Documenting provider has reviewed patient's vital signs: yes Course Course ED Course: Will give this patient a L of normal saline. We will do head neck CT imaging as well as a portable chest x-ray just to ensure no acute traumatic change. Will do full complement of labs. I do not see any evidence of any traumatic change at this point but need to consider this as he is alcoholic, actively intoxicated and does not remember events. Reevaluation(s) Time of Reevaluation #1: 19:37 Reevaluation #1: Patient has low calcium, confirmed with ionized calcium. Will give him some IV calcium gluconate. His magnesium is normal as are other electrolytes. He has a history of having low calcium. This likely reflects nutritional deficiencies or altered calcium absorption from his chronic alcoholism. Time of Reevaluation #2: 19:41 Reevaluation #2: Patient is requesting to go home, does have a ride. He is conversive and appropriate with me, functionally appropriate. Reviewed we were going to give him IV calcium, he declines but would take some Tums. We did discuss that his calcium is low and likely reflects his chronic alcoholism and complications from that. Will write him some ideas for calcium on discharge. Vital Signs Vital signs: Initial Vital Signs Pulse Rate 111 H 11/02/24 18:04 Blood Pressure 136/99 H 11/02/24 18:04 Blood Pressure Mean 111 H 11/02/24 18:04 Pulse Oximetry 94 11/02/24 18:04 Vital Signs Pulse Rate 111 H 11/02/24 18:04 Blood Pressure 136/99 H 11/02/24 18:04 Pulse Oximetry 94 11/02/24 18:04 Temperature 97.6 F 11/02/24 18:06 Pulse Rate 101 H 11/02/24 18:17 Respiratory Rate 20 11/02/24 18:06 Blood Pressure 124/93 H 11/02/24 18:17 Pulse Oximetry 96 11/02/24 18:18 Medications Administered Medications: Discontinued Medications Generic Name Dose Route Start Last Admin Trade Name Freq PRN Reason Stop Dose Admin Calcium Carbonate 1,000 mg 11/02/24 19:41 11/02/24 20:21 Calcium Carbonate 500 Mg Chew PO 11/02/24 19:42 1,000 mg ONCE ONE Administration Sodium Chloride 1,000 mls @ 500 mls/hr 11/02/24 18:20 11/02/24 19:41 0.9 % Sodium Chloride 1000 Ml IV 11/02/24 20:19 500 mls/hr .Q2H SANTO Administration MDM - Alcohol Lab Data Attestation: I reviewed the patient's lab results. Labs: Lab Results 11/02/24 11/02/24 Range/Units 18:29 19:05 WBC 5.47 (4.50-11.00) K/uL RBC 5.63 (4.30-5.90) m/uL Hgb 15.0 (13.5-17.5) gm/dL Hct 45.2 (37.0-53.0) % MCV 80 (80-100) fL MCH 27 (26-34) pg MCHC 33 (32-36) gm/dL RDW Coeff of Piedad 15.3 (11.5-15.5) % Plt Count 158 (140-440) K/uL Neut % (Auto) 53.2 (42.0-72.0) % Lymph % (Auto) 41.9 (20-44) % Screven % (Auto) 3.8 (0.0-11.0) % Eos % (Auto) 0.5 (0.0-7.0) % Baso % (Auto) 0.4 (0.0-3.0) % Neut # (Auto) 2.91 (1.7-7.0) K/uL Lymph # (Auto) 2.29 (0.90-2.90) K/uL Screven # (Auto) 0.20 (0.00-0.90) K/UL Eos # (Auto) 0.03 (0.00-0.50) K/uL Baso # (Auto) 0.02 (0.00-0.30) K/uL Abs Immat Gran (auto) 0.01 (0.00-0.30) K/uL Imm/Tot Granulo (auto) 0.2 % INR 0.92 (0.91-1.10) APTT 28 (23-33) Seconds Sodium 144 (135-149) mmol/L Potassium 3.9 (3.6-5.1) mmol/L Chloride 106 (96-114) mmol/L Carbon Dioxide 23 (20-32) mmol/L Anion Gap 15 (7-15) mEq/L BUN 24 (5-24) mg/dL Creatinine 1.1 (0.5-1.5) mg/dL Estimated GFR 89 ml/min Glucose 96 (60-115) mg/dL Lactate 3.8 H (0.5-1.9) mmol/L Calcium 8.0 L (8.4-10.6) mg/dL Ionized Calcium Keanu 1.00 L (1.11-1.30) mmol/L Magnesium 2.3 (1.5-2.6) mg/dL Total Bilirubin 0.5 (0.1-1.5) mg/dL AST 60 H (12-35) U/L ALT 46 (4-50) U/L Alkaline Phosphatase 85 (40-150) U/L Total Protein 7.3 (6.0-8.3) g/dL Albumin 4.3 (3.3-5.0) g/dL Lipase 388 H (23-300) U/L Ethyl Alcohol 0.49 H* (0.01-0.03) % Imaging Data CT scan - head: Attestation: I have reviewed the pertinent imaging results. Radiologist's impression: Patient: BALAJI ALARCON Facility:?[facility] Patient ID:?[id number] Site Patient ID:?[id number]. Site :?1990 Study:?CT-Head WITHOUT-11/02/2024 7:05:18 PM Ordering Physician:?Lenny Leal Final Report: INDICATION: Headache. Trauma. TECHNIQUE: Non-contrast CT of the head is submitted. No comparisons. FINDINGS: The ventricles, sulci and gyri are of normal size, shape and contour. Midline structures are centrally located. No convincing evidence of intra- or extra-axial fluid collections. IMPRESSION: 1. No radiographic evidence of acute intracranial abnormalities. Please note that all CT scans at this facility use dose modulation, iterative reconstruction, and/or weight-based dosing when appropriate to reduce radiation dose to as low as reasonably achievable. Dictated by Tc Reid MD @ 11/02/2024 7:43:45 PM (Electronic Signature) CT cervical spine: Attestation: I have reviewed the pertinent imaging results. Radiologist's impression: Patient: BALAJI ALARCON Facility:?[facility] Patient ID:?[id number] Site Patient ID:?[id number]. Site :?1990 Study:?CT-Spine Cervical WITHOUT-11/02/2024 7:04:46 PM Ordering Physician:?Lenny Leal Final Report: INDICATION: Neck pain. Trauma. TECHNIQUE: Non-contrast axial CT of the cervical spine with coronal and sagittal reconstructions. No comparisons. FINDINGS: The overall stature and alignment of the cervical spine is within normal limits. Prevertebral soft tissues, cervical airway, dens and lateral masses are within normal limits. No evidence of bony fragments narrowing the central canal or visualized neural foramina. IMPRESSION: No radiographic evidence of acute osseous injury. Please note that all CT scans at this facility use dose modulation, iterative reconstruction, and/or weight-based dosing when appropriate to reduce radiation dose to as low as reasonably achievable. Dictated by Tc Reid MD @ 11/02/2024 7:42:31 PM (Electronic Signature) Chest x-ray: Attestation: I have reviewed the pertinent imaging results. Radiologist's impression: Patient: MICHELLE ALARCON Facility:?[facility] Patient ID:?[id number] Site Patient ID:?[id number]. Site :?06/29/1991 Study:?CT-Facial WITHOUT-11/02/2024 9:16:08 PM Ordering Physician:?Lenny Leal Final Report: INDICATION: Trauma. TECHNIQUE: CT maxillofacial without contrast. COMPARISON: None. FINDINGS: Facial bones: Mildly displaced right nasal bone fractures (4/15, 2/61). Sulligent left bowing of the bony nasal septum with possible fracture posteriorly (260, 4/59), but not well seen. The temporomandibular joints, maxilla, and mandible appear intact. Orbits and globes: Globes are intact. No sign of intraorbital hemorrhage or emphysema. Sinuses: Mild ethmoid air cell mucosal thickening. Mastoids are clear. Soft tissues: Mild nasal soft tissue swelling. IMPRESSION: Mildly displaced right nasal bone fractures. Sulligent left bowing of the bony nasal septum with possible fracture posteriorly, but not well seen. Please note that all CT scans at this facility use dose modulation, iterative reconstruction, and/or weight-based dosing when appropriate to reduce radiation dose to as low as reasonably achievable. Dictated by Salvatore Ma MD @ 11/02/2024 10:02:39 PM (Electronic Signature) Discharge Plan Discharge Clinical Impression: Alcoholic intoxication, Hypocalcemia Patient Disposition: Home, Self-Care Condition: Stable Instructions: Hypocalcemia (ED), Alcohol Use Disorder (ED) Additional Instructions: Recommend taking daily calcium supplement which can be found [id number]. An easy way to get calcium is to take Tums, can take 2 tablets of Tums daily. Do recommend having your calcium rechecked within the next couple weeks. Highly encourage you to consider seeking out treatment for your alcohol use disorder. If you have further concerns or issues, can return for further evaluation. Prescriptions: No Action trazodone 50 mg tablet 50 mg PO DAILY dextroamphetamine-amphetamine 20 mg capsule,extended release 24hr 60 mg PO BID Follow Up/Referrals: Provider,Not a Local [Primary Care Provider, Family Practice] Stand Alone Forms: [facility] Info Instructions
[2024-11-02 18:17] VITALS: BP 124/93; PULSE 101; O2SAT 96
[2024-11-02 18:18] VITALS: O2SAT 96
--- NOTE | 2024-11-02 18:19 | CRLHL7_ITS ---
For Patients: As a result of the Century Cures Act, medical imaging exams and procedure reports are released immediately into your electronic medical record. You may view this report before your referring provider. If you have questions, please contact your health care provider. INDICATION: Headache. Trauma. TECHNIQUE: Non-contrast CT of the head is submitted. No comparisons. FINDINGS: The ventricles, sulci and gyri are of normal size, shape and contour. Midline structures are centrally located. No convincing evidence of intra- or extra-axial fluid collections. IMPRESSION: 1. No radiographic evidence of acute intracranial abnormalities. Please note that all CT scans at this facility use dose modulation, iterative reconstruction, and/or weight-based dosing when appropriate to reduce radiation dose to as low as reasonably achievable. Dictated by Tc Reid MD @ 11/02/2024 7:43:45 PM (Electronically Signed)
--- NOTE | 2024-11-02 18:19 | CRLHL7_ITS ---
For Patients: As a result of the Century Cures Act, medical imaging exams and procedure reports are released immediately into your electronic medical record. You may view this report before your referring provider. If you have questions, please contact your health care provider. INDICATION: Neck pain. Trauma. TECHNIQUE: Non-contrast axial CT of the cervical spine with coronal and sagittal reconstructions. No comparisons. FINDINGS: The overall stature and alignment of the cervical spine is within normal limits. Prevertebral soft tissues, cervical airway, dens and lateral masses are within normal limits. No evidence of bony fragments narrowing the central canal or visualized neural foramina. IMPRESSION: No radiographic evidence of acute osseous injury. Please note that all CT scans at this facility use dose modulation, iterative reconstruction, and/or weight-based dosing when appropriate to reduce radiation dose to as low as reasonably achievable. Dictated by Tc Reid MD @ 11/02/2024 7:42:31 PM (Electronically Signed)
--- NOTE | 2024-11-02 18:19 | CRLHL7_ITS ---
For Patients: As a result of the Century Cures Act, medical imaging exams and procedure reports are released immediately into your electronic medical record. You may view this report before your referring provider. If you have questions, please contact your health care provider. INDICATION: ?FALL, INTOXICATED. TECHNIQUE: Chest 1 view. COMPARISON: None. FINDINGS: Unremarkable cardiomediastinal contours. No lung consolidation. No sign of pleural effusion. No pneumothorax. No acute osseous or soft tissue findings. IMPRESSION: No acute findings. Dictated by Dutch Javier MD @ 11/02/2024 8:01:30 PM (Electronically Signed)
[2024-11-02 18:34] LABS: Lactate* 3.8 mmol/L (0.5-1.9)
[2024-11-02 18:35] LABS: Basophils Absolute Auto 0.02 K/uL (0.00-0.30); Basophils Percent Auto 0.4 % (0.0-3.0); Eosinophils Absolute Auto 0.03 K/uL (0.00-0.50); Eosinophils Percent Auto 0.5 % (0.0-7.0); Hematocrit 45.2 % (37.0-53.0); Immature Granulocytes Abs Auto 0.01 K/uL (0.00-0.30); Immature Granulocytes Pct Auto 0.2 %; Lymphocytes Absolute Auto 2.29 K/uL (0.90-2.90); Lymphocytes Percent Auto 41.9 % (20-44); Mean Corpuscular HGB Conc 33 gm/dL (32-36); Mean Corpuscular Hemoglobin 27 pg (26-34); Mean Corpuscular Volume 80 fL (80-100); Monocytes Percent Auto 3.8 % (0.0-11.0); Neutrophils Absolute Auto 2.91 K/uL (1.7-7.0); Neutrophils Percent Auto 53.2 % (42.0-72.0); Platelet Count* 158 K/uL (140-440); RDW Coefficient of Variation % 15.3 % (11.5-15.5); Red Blood Count 5.63 m/uL (4.30-5.90); White Blood Count* 5.47 K/uL (4.50-11.00)
[2024-11-02 18:38] LABS: Slide Review Reflex No
[2024-11-02 18:49] LABS: Albumin* 4.3 g/dL (3.3-5.0); Chloride* 106 mmol/L (96-114)
[2024-11-02 18:50] LABS: Potassium* 3.9 mmol/L (3.6-5.1); Sodium* 144 mmol/L (135-149)
[2024-11-02 18:52] LABS: Alanine Aminotransferase* 46 U/L (4-50); Anion Gap 15 mEq/L (7-15); Aspartate Amino Transferase* 60 U/L (12-35); Blood Urea Nitrogen* 24 mg/dL (5-24); Carbon Dioxide* 23 mmol/L (20-32); Creatinine* 1.1 mg/dL (0.5-1.5); Estimated Glomerular Filt Rate 89 ml/min; Total Protein* 7.3 g/dL (6.0-8.3)
[2024-11-02 18:53] LABS: Alkaline Phosphatase* 85 U/L (40-150); Bilirubin Total* 0.5 mg/dL (0.1-1.5); Glucose* 96 mg/dL (60-115); Lipase* 388 U/L (23-300); Magnesium* 2.3 mg/dL (1.5-2.6)
[2024-11-02 18:55] LABS: INR 0.92 (0.91-1.10); Prothrombin Time 13.2 Seconds
[2024-11-02 18:56] LABS: Partial Thromboplastin Time* 28 Seconds (23-33)
[2024-11-02 19:02] LABS: Ethanol* 0.49 % (0.01-0.03)
[2024-11-02] MEDS: 0.9 % SODIUM CHLORIDE 1000 ml 1,000 ML 500 ML IV (19:41)
[2024-11-02] MEDS: CALCIUM CARBONATE 500 MG CHEW 1000 MG PO (20:21)
== END 2024-11-02 20:31 | disposition home or self-care (01) ==
PROVIDERS: Emergency Provider Family Medicine
DX: F10.129 Alcohol abuse with intoxication, unspecified (principal); E83.51 Hypocalcemia
CPT/HCPCS: 36415; 70450; 71045; 72125; 80053; 82077; 82330; 83605; 83690; 83735; 85025; 85610; 85730; 94761; 99284; A9270; J7030

== ENCOUNTER 2025-03-03 01:47 | Emergency (ER) | payer OTHER, SELFPAY ==
--- OUTSIDE RECORDS SUMMARY | 2024-08-20 19:00 | XMS_ITS | Continuity of Care Document ---
Author Organization [facility] Address [address] [address] [place] [address] Phone Care Team Providers Care Nursing Home Director Name Role Phone Eleazar Elizabeth MD Unavailable Unavailable Procedures Procedure Date Ugi Endo; Dx W/wo Collec Specm 25 Init Hosp-da E&m Mod Severity 5 Advance Directives Directive Yes / No Effective Date File Name No Information Encounters Encounter Description Practice Location Reason(s) For Visit Diagnoses Date Provider Providers Copied on Encounter [facility], [address] [address], [place], [place], [id number], [place] tel:[phone] [facility] No Information 5 Min MD Bush. [facility], [address] [address], [place], [place], [id number] , [place]. [phone] [facility], [address] [address], [place], [place], [address], [place] [phone] [facility] No Information 5 Min MD Bush. [address] [facility], [facility] [address], [place], [place], [id number] , [place]. [phone] Referring Provider: Eleazar MAGDALENO X, [address] [facility] [address], [place], [address] . tel:[phone] Init Hosp-da E&m Mod Severity [facility], [address] [address], [place], [place], [id number], [place] tel:[phone] [facility] No Information 5 Dylan Wisdom. [address] [place] [address], [address], [place], [place], [id number] , [place]. tel:[phone] Referring Provider: Alyx Argueta, [address] [address], [place], [address] . tel:[phone] Family History Family Member Type Diagnosis Age At Onset No Information Payers Payer name Insurance type Covered constitution party ID Akiko lizama(s) [facility] [id number] Social History Type Description Quantity Date Captured Comments Sex Male Smoking Status No Information Chief Complaint And Reason For Visit No Information Reason For Referral Reason For Referral No Information History Of Present Illness Encounter Date Complaint History Of Prese nt Illness No Information Functional Status Date Functional Assessmen t No Information Instructions Date Instruction Additional Infor mation No Information Assessments Type Assessment Date No Information Patient Care Teams Name Effective Dates (start - stop) Status Members No Information
--- OUTSIDE RECORDS SUMMARY | 2024-08-20 19:00 | XMS_ITS | Continuity of Care Document ---
Author Organization [facility] Address [address] [address] [place] [address] Phone Care Team Providers Care Practicing Dermatologist Name Role Phone Eleazar Elizabeth MD Unavailable Unavailable Procedures Procedure Date Ugi Endo; Dx W/wo Collec Specm 25 Init Hosp-da E&m Mod Severity 5 Advance Directives Directive Yes / No Effective Date File Name No Information Encounters Encounter Description Practice Location Reason(s) For Visit Diagnoses Date Provider Providers Copied on Encounter [facility], [address] [address], [place], [place], [id number], [place] tel:[phone] [facility] No Information 5 Min MD Bush. [facility], [address] [address], [place], [place], [id number] , [place]. [phone] [facility], [address] [address], [place], [place], [address], [place] [phone] [facility] No Information 5 Min MD Bush. [address] [facility], [facility] [address], [place], [place], [id number] , [place]. [phone] Referring Provider: Eleazar MAGDALENO X, [address] [facility] [address], [place], [address] . tel:[phone] Init Hosp-da E&m Mod Severity [facility], [address] [address], [place], [place], [address], [place] tel:[phone] [facility] No Information 5 Dylan Wisdom. [address] [place] [address], [address], [place], [place], [id number] , [place]. tel:[phone] Referring Provider: Alyx Argueta, [address] [address], [place], [address] . tel:[phone] Family History Family Member Type Diagnosis Age At Onset No Information Payers Payer name Insurance type Covered constitution party ID Akiko lizama(s) [facility] [id number] Social History Type Description Quantity Date Captured [...]
--- OUTSIDE RECORDS SUMMARY | 2025-03-03 01:49 | XMS_ITS | Clinical Summary ---
Author Organization [facility] Address [address] [place] [id number] Care Team Providers Care Manager Company Name Role Phone Home - [place], [place] [employer] Primary C are Provider Allergies [...] on file Legal Sex Male 4:41 AM [employer] Gender Identity Not on file Sexual Orientation Not on file Last Filed Vital Signs Vital Sign Reading Time Taken Comments Blood Pressure 156/96 07/22/2023 9:49 AM [employer] Pulse 102 07/22/2023 9:49 AM [employer] Temperature 36.4 C (97.5 F) 07/22/2023 5:17 AM [employer] Respiratory Rate 20 07/22/2023 9:49 AM [employer] Oxygen Saturation 98% 07/22/2023 9:49 AM [employer] Inhaled Oxygen Concentration - - Weight 95.3 kg (210 lb) 07/22/2023 5:17 AM [employer] Height 182.9 cm (6') 07/22/2023 5:17 AM [employer] Body Mass Index 28.48 07/22/2023 5:17 AM [employer] Plan of Treatment Health Maintenance Due Date Last Done Comments ADVANCE CARE PLANNING 1990 ANNUAL REVIEW OF HM ORDERS 1988 HIV SCREENING 2003 YEARLY PREVENTIVE VISIT 10/06/2022 10/06/2021 PHQ-2 (once per calendar year) 2024 COVID-19 VACCINE (3 - season) 2025 09/26/2020, 08/28/2020 INFLUENZA VACCINE (#1) 2025 , 02/02/2020, 02/28/2019, Additional history exists DIABETES SCREENING [...] C SCREENING Completed 03/24/2023, 023 HPV VACCINE (No Doses Required) Completed Procedures Procedure Name Priority Date/Time Associated Diagnosis Comments COMPREHENSIVE METABOLIC PANEL STAT 07/22/2023 5:41 AM [employer] from Last 3 Months or Most Recently Relevant to Health Maintenance Results * (ABNORMAL) Comprehensive metabolic panel (07/22/2023 5:41 AM [employer]) Sodium 138 135 - 145 mmol/L 07/22/2023 6:17 AM [employer] [facility] Comment:Reference intervals for this test were updated on 03/02/2023 to more accurately reflect our healthy population. There may be differences in the flagging of prior results with similar values performed with this method. Interpretation of those prior results can be made in the context of the updated reference intervals. Potassium 3.7 3.4 - 5.3 mmol/L 07/22/2023 6:17 AM [employer] [facility] Carbon Dioxide (CO2) 25 22 - 29 mmol/L 07/22/2023 6:17 AM [employer] [facility] Anion Gap 17(H) 7 - 15 mmol/L 07/22/2023 6:17 AM [employer] [facility] Urea Nitrogen 11.8 6.0 - 20.0 mg/dL 07/22/2023 6:17 AM [employer] [facility] Creatinine 0.82 0.67 - 1.17 mg/dL 07/22/2023 6:17 AM [employer] [facility] GFR Estimate >90 >60 mL/min/1. 73m2 07/22/2023 6:17 AM [employer] [facility] Calcium 7.9(L) 8.6 - 10.0 mg/dL 07/22/2023 6:17 AM [facility] Chloride 96(L) 98 - 107 mmol/L 07/22/2023 6:17 AM [facility] Glucose 153(H) 70 - 99 mg/dL 07/22/2023 6:17 AM [facility] Alkaline Phosphatase 71 40 - 150 U/L 07/22/2023 6:17 AM [facility] Comment:Reference intervals for this test were updated on 04/20/2023 to more accurately reflect our healthy population. There may be differences in the flagging of prior results with similar values performed with this method. Interpretation of those prior results can be made in the context of the updated reference intervals. AST 131(H) 0 - 45 U/L 07/22/2023 6:17 AM [employer] [facility] Comment:Reference intervals for this test were updated on 11/16/2022 to more accurately reflect our healthy population. There may be differences in the flagging of prior results with similar values performed with this method. Interpretation of those prior results can be made in the context of the updated reference intervals. ALT 94(H) 0 - 70 U/L 07/22/2023 6:17 AM [facility] Comment:Reference intervals for this test were updated on 11/16/2022 to more accurately reflect our healthy population. There may be differences in the flagging of prior results with similar values performed with this method. Interpretation of those prior results can be made in the context of the updated reference intervals. Protein Total 6.8 6.4 - 8.3 g/dL 07/22/2023 6:17 AM [facility] Albumin 4.2 3.5 - 5.2 g/dL 07/22/2023 6:17 AM [facility] Bilirubin Total 0.9 <=1.2 mg/dL 07/22/2023 6:17 AM [employer] [facility] Blood STRUCTURE OF RIGHT UPPER LIMB / Unknown Venipuncture / Unknown 07/22/2023 5:41 AM [employer] 07/22/2023 5:54 AM [employer] us Ayo Boyce MD LAB - BLOOD ORDERABLES Final Result [facility] [address] Lab (1st floor, no room number) [place] [address], [facility] [phone] from Last 3 Months or Most Recently Relevant to Health [place] [address] Care Teams Manager Company Relationship Specialty Start Date End Date Home - [address] [address] PCP - General 07/22/23
--- OUTSIDE RECORDS SUMMARY | 2025-03-03 01:49 | XMS_ITS | Clinical Summary ---
Author Organization [facility] Address [address] [place] [address] Care Team Providers Care Hydraulic Punch Press Operator Name Role Phone None Reported, Pcp Primary Care Provider Unavail able Source Comments Patient records contain information from all sites at [facility]. For routine questions regarding patient records, call [phone] during business hours, M-F 8:00 AM - 5:00 PM Central Time. Record requests for emergency care only can be directed to [phone] at any time.[facility] [...] e alcohol) last drink 5 days ago Sex and Gender Information Value Date Recorded [...] 3 - Adult catch-up series) 05/28/2008 04/30/2008 HPV Vaccines (1 - 3-dose SCD M series) 2015 Pneumococcal vaccine (0-49 y ears) (2 of 2 - PCV) 09/03/2017 09/03/2016, 04/04/2008 Depression Screening (Annual PHQ-2) 06/07/2024 COVID-19 Vaccine (3 - 2024-2 6 season) 2025 09/26/2020, 08/28/2020 Influenza Vaccine (#1) 2025 , 02/02/2020, 02/28/2019, Additional history exists DTaP,Tdap,and Td Vaccines (4 - Td or Tdap) 02/23/2027 02/23/2017, 06/10/2016, 10/07/2015 Hepatitis B Vaccines Completed 02/13/2009, 05/01/2008, 04/30/2008, Additional history exists Insurance [facility] Care Teams Hydraulic Punch Press Operator Relationship Specialty Start Date End Date None Reported, Pcp PCP - General Family Medicine 08/25/23
--- OUTSIDE RECORDS SUMMARY | 2025-03-03 01:49 | XMS_ITS | Clinical Summary ---
Author Organization [facility] Address [address] [place] [address] Care Team Providers Care Comic Book Artist Name Role Phone Pcp, No Primary Care [...] 60 Tablet 1 08/21/2024 3:04 PM CDT Active Active Problems Problem Noted Date Diagnosed [...] on file Legal Sex Male 12:38 PM BUG TRIMMER Gender Identity Not on file Sexual Orientation [...] Health Maintenance Due Date Last Done Comments Tetanus booster 1999 Depression screening for age 12+ 2000 BMI (ht and wt on same day) for age 18+ 2006 Hepatitis C screening for age 18-79 2006 Hepatitis B series for 19+ ( 1 of 3 - 19+ 3-dose series) 2007 Pneumococcal series for age 6-49 (1 of 2 - PCV) 2007 HPV series for age 9-45 (1 - 3-dose SCDM series) 2015 Lipids for age 35-44 2023 COVID-19 vaccine series (3 - 2024- season) 2025 09/26/2020, 08/28/2020 Influenza Vaccine (#1) 2025 04/13/2014 RSV vaccine for adults or pr egnancy (1 - 1-dose 75+ series) 2063 HIV for age 15-65 Completed 04/12/2014 Procedures Procedure Name Priority Date/Time Associated Diagnosis Comments ANTI HIV 1/2 Today 04/12/2014 12:45 PM BUG TRIMMER from Last 3 Months or Most Recently Relevant to Health Maintenance Results * HIV 1&2 TODAY (04/12/2014 12:45 PM BUG TRIMMER) HIV-1/HIV-2 ANTIBODY Non-Reacti ve Non-Reacti ve 04/12/2014 2:19 PM BUG TRIMMER [facility] Blood specimen (specimen) BLOOD SPECIMEN / Unknown Venipuncture / Unknown 04/12/2014 12:45 PM BUG TRIMMER 04/12/2014 1:26 PM BUG TRIMMER Narrative [facility] - 04/12/2014 2:19 PM BUG TRIMMER HIV-1 p24 and HIV-1/HIV-2 Ab not detected us Queenie Enriquez MD SEND OUTS Final Res ult [facility] [address] [place] [address], [place] from Last 3 Months or Most Recently Relevant to Health Maintenance Insurance [facility] [place] [address] Advance Directives * Full Code (Latest Code Status on File) Date Activated Date Inactivated Comments 08/19/2024 10:24 PM 08/21/2024 5:49 PM Question Answer Comments Code Status Discussion: Reviewed Preferences * Full Code Date Activated Date Inactivated Comments 04/11/2014 8:13 PM 04/16/2014 4:15 PM Care Teams Comic Book Artist Relationship Specialty Start Date End Date Pcp, No . PCP - General 04/11/14
--- OUTSIDE RECORDS SUMMARY | 2025-03-03 01:49 | XMS_ITS | Clinical Summary ---
Author Organization [facility] Address [address], [place] [address] Care Team Providers Care Information Technology Architect Name Role Phone Feliciano Dexter MD Primary Care Provider [phone] Source Comments You are receiving this document as you are listed as the primary care provider,follow-up provider, or the patient has been referred to you for consultation.This is in compliance with the Medicare and[facility] EHR Incentive Program,which states Providers who transition their patient to another setting of careor provider of care or refers their patient to another provider of care shouldprovide summary care record for each transition of care or referral. 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 Not on file Not on file Last Filed Vital Signs Vital Sign Reading Time Taken Comments Blood Pressure 118/77 10/06/2021 12:21 PM CDT Pulse 75 10/06/2021 12:21 PM CDT Temperature 36.8 C (98.2 F) 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 Respiratory Rate 18 10/12/2017 [...] (Preventive Services) 2004 HepB Vaccine (1) 2007 HPV Vaccine (1 - 3-dose SCDM series) 2015 Adult Preventive Visit 10/07/2023 10/06/2021 COVID-19 Vaccine (3 - season) 2025 09/26/2020, 08/28/2020 Influenza Vaccine (#1) 2025 , 02/02/2020, 02/28/2019, Additional history exists Cholesterol 10/06/2026 10/06/2021 DTaP/Tdap/Td Vaccine (2 - Tdap) 02/23/2027 02/23/2017 Zoster/Shingles Vaccine (1 of 2) 2038 HepA Vaccine Aged Out No longer eligi [...] - 199 mg/dL 10/06/2021 2:44 PM CDT [facility] HDL Cholesterol 29(L) >=40 mg/dL 2:44 PM CDT [facility] Non HDL Chol, Calculated 175(H) <=159 mg/dL 10/06/2021 2:44 PM CDT [facility] Blood Venipuncture / Unknown 10/06/2021 12:58 PM CDT 10/06/2021 12:58 PM CDT Feliciano Dexter MD LAB_1 Final Result [facility] [address] [facility] [place] [address], [facility] [phone] from Last 3 Months or Most Recently Relevant to Health Maintenance Insurance [facility] OUT [facility] STATE Care Teams Information Technology Architect Relationship Specialty Start [place] [address] [place] [address] (work) PCP - General Family Practice 02/22/17
[2025-03-03 01:53] VITALS: BP 115/80; PULSE 130; RESP 18; TEMP 35.8; O2SAT 95; BMI 28.5
[2025-03-03] MEDS: PANTOPRAZOLE SODIUM 40 MG INJ IVP (02:26)
[2025-03-03] MEDS: ONDANSETRON 2 MG/ML inj 4 MG IVP (02:26)
[2025-03-03 02:43] LABS: Lactate* 3.6 mmol/L (0.5-1.9)
[2025-03-03 02:44] LABS: Hematocrit* 47.3 % (37.0-53.0); Hemoglobin* 16.1 gm/dL (13.5-17.5); Immature Granulocytes Abs Auto 0.01 K/uL (0.00-0.30); Immature Granulocytes Pct Auto 0.1 %; Mean Corpuscular HGB Conc 34 gm/dL (32-36); Mean Corpuscular Hemoglobin 26 pg (26-34); Mean Corpuscular Volume 77 fL (80-100); RDW Coefficient of Variation % 14.5 % (11.5-15.5); Red Blood Count* 6.17 m/uL (4.30-5.90); White Blood Count* 8.73 K/uL (4.50-11.00)
[2025-03-03 02:45] LABS: Lymphocytes Absolute Auto 4.00 K/uL (0.90-2.90)
[2025-03-03 02:47] LABS: Slide Review Reflex No
[2025-03-03 03:05] LABS: Albumin* 4.6 g/dL (3.3-5.0); Chloride* 98 mmol/L (96-114)
[2025-03-03 03:06] LABS: Potassium* 3.7 mmol/L (3.6-5.1); Sodium* 137 mmol/L (135-149)
--- NOTE | 2025-03-03 03:06 | ED.NAVMDI ---
HPI - Nausea/Vomiting/Diarrhea General Time Seen by Provider: 03:06 Date Seen: 03/03/25 Chief complaint: Nausea/Vomiting Stated complaint: vomiting blood Time Seen by Provider: 03/03/25 03:06 Source: patient Mode of arrival: ambulatory History of Present Illness HPI Narrative: Balaji is a 34-year-old male with a past medical history of alcohol use disorder who presents the emergency department for evaluation nausea, vomiting, and concern for hematemesis. Patient reports that last night around 2200 he developed multiple episodes of nausea, vomiting. Patient states that he had approximately 3-4 episodes of vomiting, and then noted some coffee-ground emesis in his vomit and then later bright red blood. Patient reports history of similar symptoms in the past and believes he has an ulcer. [facility] and reports he last had an endoscopy a few months ago for similar symptoms. Patient reports history of alcohol use disorder however states that he has not drink for a few weeks. Patient does not take any medications, does not take antacids. Patient denies any weakness, dizziness, fever, chills, chest pain, shortness of breath, abdominal pain, denies any changes in stools, no other complaints. Related Data Home Medications ?Medication ?Instructions ?Recorded ?Confirmed dextroamphetamine-amphetamine ER 60 mg PO BID 08/21/23 11/02/24 20 mg 24hr capsule,extend release trazodone 50 mg tablet 50 mg PO DAILY 11/02/24 11/02/24 Previous Rx's ?Medication ?Instructions ?Recorded pantoprazole 40 mg tablet,delayed 40 mg PO DAILY #30 tabs 03/03/25 release Allergies Allergy/AdvReac Type Severity Reaction Status Date / Time No Known Drug Allergies Allergy Verified 11/02/24 18:04 Review of Systems Narrative: Past medical history, past surgical history, medications, allergies, family history, and social history were reviewed with the patient. No additional pertinent items. A medically appropriate review of systems was performed with pertinent positives and negatives noted in HPI, all other systems negative. [facility] Medical History Alcohol use disorder ?F10.90 - Alcohol use, unspecified, uncomplicated (ICD-10) Family History Other Cardiovascular disease Diabetes Stroke Social History Narrative: patient lives alone in [place]. He is . He has a 10-year-old daughter that he sees on a regular schedule. He works at [employer] in [place]. He is a and gets medical care through the [facility]. What is your current living situation?: I presently have a place to live Problems where you live: no known problems Problems where you live details: N/A In the past 12 months, utilities in danger of being shut off: no In past 12 months, lack of transportation kept you from medical appts, meetings, work, or getting things needed for daily living: no In the past 12 mos, have been you worried that your food would run out before you had money to buy more?: never true In the past 12 mos, the food you bought just didn't last and you didn't have money to buy more?: never true Highest level of school completed/degree received: some college, no degree Smoking Status: Never smoker Do you use any of these nicotine containing products: E-Cigarettes How often do you have a drink containing alcohol: 4 or more times a week Alcohol type: hard liquor AUDIT-C Alcohol total score: 4 Caffeine: Yes How often does anyone, including family, friends and others, physically hurt you: never How often does anyone, including family, friends and others, insult or talk down to you: never How often does anyone, including family, friends and others, threaten you with harm: never How often does anyone, including family, friends and others, scream or curse at you: never Exam Narrative: Exam Narrative: General: Afebrile, in distress HEENT: Normocephalic, atraumatic, conjunctiva normal. MMM Neck: non-tender, supple Cardio: regular rate. regular rhythm Resp: Normal work of breathing, no respiratory distress, lungs clear bilaterally, no wheezing, rhonchi, rales Chest/Back: no visual signs of trauma, no midline tenderness, no CVA tenderness Abdomen: soft, non distension, no tenderness, no peritoneal signs Neuro: alert and fully oriented. CN II-XII grossly intact. Grossly normal strength and sensation in all extremities. MSK: no deformities. Normal range of motion Integumentary/Skin: no rash visualized, normal color Psych: normal affect, normal behavior Const: Vital Signs, click to edit/add: Vital Signs - 24 hr 03/03/25 01:53 03/03/25 06:41 Temperature 96.5 F L Pulse Rate [Pulse Oximeter] 130 H 92 Respiratory Rate 18 16 Blood Pressure [Ri ght Upper Arm] 115/80 127/100 H Pulse Oximetry 95 94 Oxygen Delivery Me thod Room Air Room Air Course Vital Signs Vital signs: Initial Vital Signs Temperature 96.5 F L 03/03/25 01:53 Temperature Source Temporal Artery Scan 03/03/25 01:53 Pulse Rate 130 H 03/03/25 01:53 Respiratory Rate 18 03/03/25 01:53 Blood Pressure 115/80 03/03/25 01:53 Blood Pressure Mean 91 03/03/25 01:53 Blood Pressure Position Sitting 03/03/25 01:53 Pulse Oximetry 95 03/03/25 01:53 Oxygen Delivery Method Room Air 03/03/25 01:53 Vital Signs Temperature 96.5 F L 03/03/25 01:53 Pulse Rate 130 H 03/03/25 01:53 Respiratory Rate 18 03/03/25 01:53 Blood Pressure 115/80 03/03/25 01:53 Pulse Oximetry 95 03/03/25 01:53 Oxygen Delivery Method Room Air 03/03/25 01:53 Temperature 96.5 F L 03/03/25 01:53 Pulse Rate 92 03/03/25 06:41 Respiratory Rate 16 03/03/25 06:41 Blood Pressure 127/100 H 03/03/25 06:41 Pulse Oximetry 94 03/03/25 06:41 Oxygen Delivery Method Room Air 03/03/25 06:41 Medications Administered Medications: Discontinued Medications Generic Name Dose Route Start Last Admin Trade Name Freq PRN Reason Stop Dose Admin Sodium Chloride 1,000 mls @ 1,000 mls/hr 03/03/25 02:15 03/03/25 03:31 0.9 % Sodium Chloride 1000 Ml IV 03/03/25 03:14 Infused .Q1H SANTO Infusion Sodium Chloride 1,000 mls @ 1,000 mls/hr 03/03/25 03:30 03/03/25 04:29 0.9 % Sodium Chloride 1000 Ml IV 03/03/25 04:29 Infused .Q1H SANTO Infusion Ondansetron HCl 4 mg 03/03/25 02:10 03/03/25 02:26 Ondansetron 2 Mg/Ml Inj IVP 03/03/25 02:11 4 mg ONCE ONE Administration Pantoprazole Sodium 40 mg 03/03/25 02:09 03/03/25 02:26 Pantoprazole Sodium 40 Mg Inj IVP 03/03/25 02:10 40 mg ONCE ONE Administration MDM - Nausea/Vomiting/Diarrhea MDM Narrative Medical decision making narrative: Balaji is a 34-year-old male with a past medical history of alcohol use disorder who presents the emergency department for evaluation nausea, vomiting, and concern for hematemesis. Upon arrival patient is nontoxic appearing, afebrile, in distress. Patient tachycardic upon arrival with heart rate 130, blood pressure 115/80, oxygen 95% on room air. Differential diagnosis includes but is not limited to gastritis versus gastroenteritis versus peptic ulcer disease versus bore heaves versus esophagitis versus pancreatitis versus GI bleed among others. Upon arrival patient was treated with IV Zofran, IV Protonix, 1 L IV fluid bolus. Comprehensive labs remarkable for no leukocytosis white blood cell count 8.7, hemoglobin 16.1, no acute metabolic or electrolyte abnormality lactic acid elevated at 3.6 (per chart review patient has had prior elevation in lactic acid before) no significant transaminitis, normal lipase. Alcohol level 0.21. Patient was treated with 2 L IV fluid bolus, lactic acid decreased to 3.2, 3.4. On re-evaluation patient resting comfortably, no distress. No further episodes of emesis. I discussed results with patient, suspect likely alcohol gastritis versus peptic ulcer disease among others. Given patient's symptoms I did offer and recommend admission to the hospital for observation for continuous monitoring, serial hemoglobins, and possible endoscopy however patient states he does not want to stay in the hospital and would like to discharge. Patient remains hemodynamically stable, nontoxic appearing, and continues to feel well. Patient states he is agreeable to discharge with close outpatient follow-up and will follow up for outpatient endoscopy with his primary providers. Will discharge patient with a prescription for Protonix, recommend to avoid any alcohol use, strict return precautions discussed. Patient understands agrees to the plan. Medical Records Attestation: I reviewed the patient's medical records. Lab Data Attestation: I reviewed the patient's lab results. Labs: Lab Results 03/03/25 03/03/25 03/03/25 Range/Units 02:34 03:54 05:00 WBC 8.73 (4.50-11.00) K/uL RBC 6.17 H (4.30-5.90) m/uL Hgb 16.1 (13.5-17.5) gm/dL Hct 47.3 (37.0-53.0) % MCV 77 L (80-100) fL MCH 26 (26-34) pg MCHC 34 (32-36) gm/dL RDW Coeff of [place] 14.5 (11.5-15.5) % Plt Count 388 (140-440) K/uL Neut % (Auto) 46.2 (42.0-72.0) % Lymph % (Auto) 46.3 H (20-44) % [place] % (Auto) 6.6 (0.0-11.0) % Eos % (Auto) 0.5 (0.0-7.0) % Baso % (Auto) 0.3 (0.0-3.0) % Neut # (Auto) 4.03 (1.7-7.0) K/uL Lymph # (Auto) 4.00 H (0.90-2.90) K/uL [place] # (Auto) 0.60 (0.00-0.90) K/UL Eos # (Auto) 0.04 (0.00-0.50) K/uL Baso # (Auto) 0.03 (0.00-0.30) K/uL Abs Immat Gran (auto) 0.01 (0.00-0.30) K/uL Imm/Tot Granulo (auto) 0.1 % INR 0.96 (0.91-1.10) Sodium 137 (135-149) mmol/L Potassium 3.7 (3.6-5.1) mmol/L Chloride 98 (96-114) mmol/L Carbon Dioxide 25 (20-32) mmol/L Anion Gap 14 (7-15) mEq/L BUN 24 (5-24) mg/dL Creatinine 1.1 (0.5-1.5) mg/dL Estimated Creat Clear 101.90 Estimated GFR 89 ml/min Glucose 158 H (60-115) mg/dL Lactate 3.6 H 3.2 H 3.4 H (0.5-1.9) mmol/L Calcium 8.6 (8.4-10.6) mg/dL Total Bilirubin 0.7 (0.1-1.5) mg/dL AST 38 H (12-35) U/L ALT 30 (4-50) U/L Alkaline Phosphatase 85 (40-150) U/L Total Protein 7.8 (6.0-8.3) g/dL Albumin 4.6 (3.3-5.0) g/dL Lipase 109 (23-300) U/L Ethyl Alcohol 0.21 H (0.01-0.03) % Discharge Plan Discharge Clinical Impression: Nausea and vomiting, Hematemesis, Alcohol intoxication Patient Disposition: Home, Self-Care Condition: Stable Additional Instructions: Please follow-up with your primary care provider in the next 3-5 days for further evaluation and follow-up. Please call to schedule an appointment. Please continue to monitor symptoms. Please drink plenty of liquids, eat a soft/bland diet. Please take antacid daily as directed. Please avoid any alcohol use. Return to the emergency department if you develop high fever, severe chest pain, difficulty breathing, persistent vomiting, blood in your vomit or stools, or any worsening symptoms. It was a pleasure taking care of you today. We hope you feel better soon. Prescriptions: New pantoprazole 40 mg tablet,delayed release (DR/EC) 40 mg PO DAILY Qty: 30 2RF No Action trazodone 50 mg tablet 50 mg PO DAILY dextroamphetamine-amphetamine 20 mg capsule,extended release 24hr 60 mg PO BID Follow Up/Referrals: Provider,Not a Local [Primary Care Provider, Family Practice] Stand Alone Forms: Envia L[facility] Info Instructions
[2025-03-03 03:07] LABS: INR 0.96 (0.91-1.10); Prothrombin Time 13.6 Seconds
[2025-03-03 03:08] LABS: Alanine Aminotransferase* 30 U/L (4-50); Anion Gap 14 mEq/L (7-15); Aspartate Amino Transferase* 38 U/L (12-35); Blood Urea Nitrogen* 24 mg/dL (5-24); Carbon Dioxide* 25 mmol/L (20-32); Creatinine* 1.1 mg/dL (0.5-1.5); Est. Creatinine Clearance* 101.90; Estimated Glomerular Filt Rate 89 ml/min
[2025-03-03 03:09] LABS: Alkaline Phosphatase* 85 U/L (40-150); Bilirubin Total* 0.7 mg/dL (0.1-1.5); Calcium* 8.6 mg/dL (8.4-10.6); Ethanol* 0.21 % (0.01-0.03); Glucose* 158 mg/dL (60-115); Total Protein* 7.8 g/dL (6.0-8.3)
[2025-03-03 04:00] LABS: Lactate* 3.2 mmol/L (0.5-1.9)
[2025-03-03 05:04] LABS: Lactate* 3.4 mmol/L (0.5-1.9)
[2025-03-03 06:41] VITALS: BP 127/100; PULSE 92; RESP 16; O2SAT 94
== END 2025-03-03 07:02 | disposition home or self-care (01) ==
PROVIDERS: Emergency Provider Emergency Medicine
DX: K92.0 Hematemesis (principal); F10.129 Alcohol abuse with intoxication, unspecified
CPT/HCPCS: 36415; 80053; 82077; 83605; 83690; 85025; 85610; 96374; 96375; 99284; 99285; J2405; J2470; J7030